=== PATIENT | male | born 1950 | race Caucasian/White ===

== ENCOUNTER 2017-07-11 10:53 | Inpatient (IN) | payer MEDICAID, OTHER ==
[2017-07-11] MEDS ORDERED: Iohexol 240 (50 ml) PO STA (11:40)
[2017-07-11] MEDS ORDERED: Iohexol 240 (50 ml) ONE (13:12)
[2017-07-11] MEDS ORDERED: Morphine 4 MG/ML VIAL ONE (13:12)
[2017-07-11 13:13] LABS: BASO # 0.1 K/uL (0.0-0.2); EOS # 0.2 K/uL (0.0-0.7); EOS % 3.4 % (0.0-4.0); LYMPH # 1.4 K/uL (1.0-4.3); LYMPH % 23.4 % (20.0-40.0); MEAN CELL VOLUME 87.3 fL (80.0-94.0); MEAN CORPUSCULAR HEMOGLOBIN 28.9 pg (27.0-31.0); MEAN CORPUSCULAR HGB CONC 33.1 g/dL (33.0-37.0); MEAN PLATELET VOLUME 7.4 fL (7.2-11.7); MONO # 0.3 K/uL (0.0-0.8); MONO % 5.1 % (0.0-10.0); NRBC % 0.1 % (0.0-2.0); RED CELL DISTRIBUTION WIDTH 14.5 % (11.5-14.5); WHITE BLOOD COUNT 6.1 K/uL (4.8-10.8)
[2017-07-11 13:16] LABS: URINE BILIRUBIN NEGATIVE (NEGATIVE); URINE BLOOD 1+ (NEGATIVE); URINE COLOR Straw (YELLOW); URINE GLUCOSE (UA) 1+ mg/dL (Normal); URINE KETONE NEGATIVE (NEGATIVE); URINE LEUKOCYTE ESTERASE NEG Leu/uL (Negative); URINE PROTEIN 2+ mg/dL (NEGATIVE); URINE UROBILINOGEN NORMAL mg/dL (0.2-1.0); WBC URINE 1 /hpf (0-5)
[2017-07-11 13:17] LABS: RBC URINE 4 /hpf (0-3)
[2017-07-11 13:21] LABS: POTASSIUM 4.8 mmol/L (3.6-5.2)
[2017-07-11 13:23] LABS: ALB/GLOB RATIO 1.3 (1.0-2.1); BILIRUBIN,TOTAL 0.5 mg/dL (0.2-1.3); TOTAL PROTEIN 7.6 g/dL (6.3-8.3)
[2017-07-11 13:24] LABS: CALCIUM 8.6 mg/dl (8.6-10.4)
--- NOTE | 2017-07-11 14:57 | C.PDOC ---
History Of Present Illness 67 year old male, with PMHx of chronic kidney disease on dialysis Friday, Friday, Friday, presents to ED for evaluation of abdominal pain and vomiting for the past 3 days and associated diarrhea for the last 10 days. Otherwise, denies urinary symptoms, back pain, or fever. Time Seen by Provider: 07/11/17 11:19 Chief Complaint (Nursing): GI Problem History Per: Patient History/Exam Limitations: no limitations Onset/Duration Of Symptoms: Days Current Symptoms Are (Timing): Still Present Location Of Pain/Discomfort: Diffuse Radiation Of Pain To:: None Quality Of Discomfort: "Pain", Other (fullness) Associated Symptoms: Nausea, Vomiting, Diarrhea. denies: Fever, Chills, Loss Of Appetite, Back Pain, Chest Pain, Constipation, Urinary Symptoms Exacerbating Factors: None Alleviating Factors: None Recent travel outside of the [place]: No Additional History Per: Patient Past Medical History Reviewed: Historical Data, Nursing Documentation, Vital Signs Vital Signs: Last Vital Signs Temp 98.1 F 07/11/17 18:46 Pulse 84 07/11/17 18:46 Resp 20 07/11/17 18:46 BP 152/78 H 07/11/17 18:46 Pulse Ox 99 07/11/17 18:46 - Medical History PMH: Arthritis (Gout), HTN, Hypercholesterolemia, Hypothyroidism, Peripheral Edema (left arm and hand edema), Chronic Kidney Disease - [facility] Procedures ARTHROCENTESIS (06/24/14) DIALYSIS ARTERIOVENOSTOM (06/24/14) HEMODIALYSIS (06/24/14) VENOUS CATHETERIZATION FOR RENAL DIALYSIS (06/24/14) Family History: States: Unknown Family Hx - Social History Hx Tobacco Use: No Hx Alcohol Use: No Hx Substance Use: No - Immunization History Hx Tetanus Toxoid Vaccination: No Hx Influenza Vaccination: Yes ('2 MONTHS AGO) Hx Pneumococcal Vaccination: No Review Of Systems Except As Marked, All Systems Reviewed And Found Negative. Constitutional: Negative for: Fever, Chills Cardiovascular: Negative for: Chest Pain, Palpitations Respiratory: Negative for: Shortness of Breath Gastrointestinal: Positive for: Nausea, Vomiting, Abdominal Pain, Diarrhea. Negative for: Constipation, Melena, Hematochezia, Hematemesis Genitourinary: Negative for: Dysuria, Frequency, Hematuria, Penile Discharge Musculoskeletal: Negative for: Back Pain Physical Exam - Physical Exam Appears: Non-toxic, No Acute Distress Skin: Normal Color, Warm, Dry Head: Atraumatic, Normacephalic Eye(s): bilateral: Normal Inspection Nose: Normal Oral Mucosa: Moist Neck: Normal ROM, Supple Chest: Symmetrical Cardiovascular: Rhythm Regular, No Murmur Respiratory: Normal Breath Sounds, No Rales, No Rhonchi, No Wheezing Gastrointestinal/Abdominal: Soft, Tenderness (diffuse), No Guarding, No Rebound Back: No CVA Tenderness Extremity: Normal ROM Neurological/Psych: Oriented x3, Normal Speech ED Course And Treatment - Laboratory Results Result Diagrams: 07/11/17 13:09 07/11/17 13:09 O2 Sat by Pulse Oximetry: 100 (RA) Pulse Ox Interpretation: Normal Progress Note: Blood work, UA, EKG, Abd & Pelvis CT scan ordered and reviewed. Patient was given Morphine, Zofran, Omnipaque, Pantoprazole. Case discussed with Dr. Banks who evaluated patient at bedside, requests to admit patient under public relations officer medicine. Case discussed with Dr Moore, public relations officer surgery, agreed upon plan and will evaluated the pt. Case discussed with Dr. Yo, hospitalist , who agrees upon plan and admission. 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 - Scribe Statement The provider has reviewed the documentation as recorded by the Scribe Victoriano Yo All medical record entries made by the Scribe were at my direction and personally dictated by me. I have reviewed the chart and agree that the record accurately reflects my personal performance of the history, physical exam, medical decision making, and the department course for this patient. I have also personally directed, reviewed, and agree with the discharge instructions and disposition.
--- NOTE | 2017-07-11 15:05 | CP.PCM.CON ---
History of Present Illness - History of Present Illness History of Present Illness: 67 y/o HM admitted with 3 days nausea, vomiting, abdominal pains- epigastric. No diarrhea, fevers PMH: ESRD DYSLIPIDEMIA HYPOTHYROIDISM PSH: AV FISTULA Review of Systems - Constitutional Constitutional: Fatigue, Weakness - EENT Eyes: absent: As Per HPI, Blind Spots, Blurred Vision, Change in Vision, Decreased Night Vision, Diplopia, Discharge, Dry Eye, Exophthalmos, Floaters, Irritation, Itchy Eyes, Loss of Peripheral Vision, Pain, Photophobia, Requires Corrective Lenses, Sees Flashes, Spots in Vision, Tunnel Vision, Other Visual Disturbances, Loss of Vision, Other Ears: absent: As Per HPI, Decreased Hearing, Ear Discharge, Ear Pain, Tinnitus, Abnormal Hearing, Disequilibrium, Dizziness, Other Nose/Mouth/Throat: absent: As Per HPI, Epistaxis, Nasal Congestion, Nasal Discharge, Nasal Obstruction, Nasal Trauma, Nose Pain, Post Nasal Drip, Sinus Pain, Sinus Pressure, Bleeding Gums, Change in Voice, Dental Pain, Dry Mouth, Dysphagia, Halitosis, Hoarsness, Lip Swelling, Mouth Lesions, Mouth Pain, Odynophagia, Sore Throat, Throat Swelling, Tongue Swelling, Facial Pain, Neck Pain, Neck Mass, Other - Cardiovascular Cardiovascular: absent: As Per HPI, Acrocyanosis, Chest Pain, Chest Pain at Rest , Chest Pain with Activity, Claudication, Diaphoresis, Dyspnea, Dyspnea on Exertion, Edema, Irregular Heart Rhythm, Pain Radiating to Arm/Neck/Jaw, Leg Edema, Leg Ulcers, Lightheadedness, Orthopnea, Palpitations, Paroxysmal Nocturnal Dyspnea, Pedal Edema, Radiating Pain, Rapid Heart Rate, Slow Heart Rate, Syncope, Other - Respiratory Respiratory: absent: As Per HPI, Cough, Dyspnea, Hemoptysis, Dyspnea on Exertion , Wheezing, Snoring, Stridor, Pain on Inspiration, Chest Congestion, Excessive Mucous Production, Change in Mucous Color, Pain with Coughing, Other - Gastrointestinal Gastrointestinal: As Per HPI - Genitourinary Genitourinary: As Per HPI - Musculoskeletal Musculoskeletal: Back Pain, Muscle Weakness - Integumentary Integumentary: absent: As Per HPI, Acne, Alopecia, Bleeding Lesions, Change in Hair, Change in Nails, Change in Pigmentation, Changing Lesions, Dry Skin, Erythema, Furuncle, Hirsutism, Lesions, New Lesions, Non-Healing Lesions, Photosensitivity, Pruritus, Rash, Skin Pain, Skin Ulcer, Sores, Striae, Swelling , Unusual Bruising, Wounds, Jaundice, Other - Neurological Neurological: absent: As Per HPI, Abnormal Gait, Abnormal Hearing, Abnormal Movements, Abnormal Speech, Behavioral Changes, Burning Sensations, Confusion, Convulsions, Disequilibrium, Dizziness, Numbness, Focal Weakness, Frequent Falls , Headaches, Lack of Coordination, Loss of Vision, Memory Loss, Paresthesias, Radicular Pain, Restless Legs, Sensory Deficit, Syncope, Tingling, Tremor, Vertigo, Weakness, Other Visual Disturbances, Other - Psychiatric Psychiatric: absent: As Per HPI, Abnormal Sleep Pattern, Anhedonia, Anxiety, Auditory Hallucinations, Behavioral Changes, Change in Appetite, Change in Libido, Confusion, Depression, Difficulty Concentrating, Hallucinations, Homicidal Ideation, Hopelessness, Irritability, Memory Loss, Mood Swings, Panic Attacks, Paranoia, Suicidal Ideation, Visual Hallucinations, Tactile Hallucinations, Other Past Patient History - Infectious Disease Hx of Infectious Diseases: None - Past Medical History & Family History Past Medical History?: Yes Past Family History: Reviewed and not pertinent - Past Social History Smoking Status: Never Smoked Chewing Tobacco Use: No Cigar Use: No Alcohol: None Drugs: Denies - CARDIAC Hx Hypercholesterolemia: Yes Hx Hypertension: Yes Hx Peripheral Edema: Yes (left arm and hand edema) - PULMONARY Hx Respiratory Disorders: No - NEUROLOGICAL Hx Alzheimer's Disease: No Hx Dementia: No Hx Migraine: No Hx Multiple Sclerosis: No Hx Parkinson's Disease: No Hx Seizures: No Hx Transient Ischemic Attacks (TIA): No - HEENT Hx HEENT Problems: No Hx Blind: No Hx Cataracts: No Hx Deafness: No Hx Difficulty Chewing: No Hx Epistaxis: No Hx Glaucoma: No Hx Macular Degeneration: No - RENAL Hx Chronic Kidney Disease: Yes - ENDOCRINE/METABOLIC Hx Hypothyroidism: Yes - HEMATOLOGICAL/ONCOLOGICAL Hx Anemia: No Hx Human Immunodeficiency Virus (HIV): No Hx Sickle Cell Disease: No - INTEGUMENTARY Hx Basil Cell: No Hx Wyatt: No Hx Cellulitis: No Hx Eczema: No Hx Melanoma: No Hx Psoriasis: No Hx Squamous Cell: No - MUSCULOSKELETAL/RHEUMATOLOGICAL Hx Arthritis: Yes (Gout) - GENITOURINARY/GYNECOLOGICAL Hx Sexually Transmitted Disorders: No - PSYCHIATRIC Hx Substance Use: No - SURGICAL HISTORY Hx Appendectomy: No Hx Arteriovenous Shunt: Yes Hx Carotid Endarterectomy: No Hx Cholecystectomy: No Hx Coronary Artery Bypass Graft: No Hx Coronary Stent: No Hx Tonsillectomy: No - ANESTHESIA Hx Anesthesia: Yes Hx Anesthesia Reactions: No Meds Allergies/Adverse Reactions: Allergies Allergy/AdvReac Type Severity Reaction Status Date / Time No Known Allergies Allergy Verified 07/11/17 11:26 Physical Exam - Constitutional Appears: Non-toxic, Chronically Ill - Head Exam Head Exam: ATRAUMATIC, NORMAL INSPECTION - Eye Exam Eye Exam: EOMI - Neck Exam Neck exam: Negative for: Tenderness - Respiratory Exam Respiratory Exam: Rales, NORMAL BREATHING PATTERN - Cardiovascular Exam Cardiovascular Exam: REGULAR RHYTHM, +S1 - GI/Abdominal Exam GI & Abdominal Exam: Soft, Tenderness - Extremities Exam Extremities exam: Positive for: pedal edema. Negative for: tenderness - Neurological Exam Neurological exam: Alert, CN II-XII Intact - Skin Skin Exam: Dry, Warm Results - Vital Signs Recent Vital Signs: Last Vital Signs Temp 97.3 F L 07/11/17 11:26 Pulse 87 07/11/17 11:26 Resp 20 07/11/17 11:26 BP 157/89 H 07/11/17 11:26 Pulse Ox 100 07/11/17 15:02 - Labs Result Diagrams: 07/11/17 13:09 07/11/17 13:09 Labs: Laboratory Results - last 24 hr 07/11/17 07/11/17 07/11/17 13:09 13:09 13:09 WBC 6.1 RBC 3.67 L Hgb 10.6 L Hct 32.0 L MCV 87.3 MCH 28.9 MCHC 33.1 RDW 14.5 Plt Count 198 MPV 7.4 Neut % (Auto) 67.1 Lymph % (Auto) 23.4 [place] % (Auto) 5.1 Eos % (Auto) 3.4 Baso % (Auto) 1.0 Neut # 4.1 Lymph # 1.4 [place] # 0.3 Eos # 0.2 Baso # 0.1 Sodium 125 L Potassium 4.8 Chloride 87 L Carbon Dioxide 22 Anion Gap 21 H BUN 50 H Creatinine 7.8 H* Est GFR ( Amer) 8 Est GFR (Non-Af Amer) 7 Random Glucose 85 Calcium 8.6 Total Bilirubin 0.5 AST 21 ALT 43 Alkaline Phosphatase 58 Total Protein 7.6 Albumin 4.3 Globulin 3.3 Albumin/Globulin Ratio 1.3 Lipase 123 Urine Color Straw Urine Clarity Clear Urine pH 8.0 Ur Specific [place] 1.005 Urine Protein 2+ H Urine Glucose (UA) 1+ H Urine Ketones Negative Urine Blood 1+ H Urine Nitrate Negative Urine Bilirubin Negative Urine Urobilinogen Normal Ur Leukocyte Esterase Neg Urine WBC (Auto) 1 Urine RBC (Auto) 4 H Assessment & Plan (1) Gastroenteritis Status: Acute (2) Chronic glomerulonephritis Status: Acute (3) Chronic glomerulonephritis Status: Acute (4) Abdominal pain Status: Acute - Assessment and Plan (Free Text) Plan: Needs dialysis today and MWF Has moderate fluid overload For GI workup Would add PPIs
--- NOTE | 2017-07-11 16:57 | CT ---
PROCEDURE: CT scan abdomen and pelvis dated 07/11/2017 HISTORY: Abdominal pain. COMPARISON: Comparison made with prior CT scan abdomen pelvis 08/10/2015 TECHNIQUE: Contiguous axial images of the abdomen and pelvis. Oral contrast was administered. No IV contrast given. Coronal and Sagittal reformats generated. This CT exam was performed using one or more of the following dose reduction techniques: Automated exposure control, adjustment of the mA and/or kV according to patient size, and/or use of iterative reconstruction technique. Total exam DLP = 399.31 mGy-cm. FINDINGS: LOWER THORAX: Medium size right-sided effusion with mild right basilar atelectasis. The some minimal left basilar atelectasis. No evidence of basilar pneumothorax. Small hiatal hernia. Heart size is upper limits of normal. There is evidence suggest anemia based on the CT appearance of the heart. . Suspect tiny pericardial effusion LIVER: Liver exhibits normal size. Mild diffuse fatty hepatic infiltration felt to be present. No obvious hepatic mass or collection seen on this noncontrast study. GALLBLADDER AND BILE DUCTS: Cholelithiasis. There appears to be some infiltration changes in the surrounding pericholecystic fat; rule out acute cholecystitis. . Infiltration changes extend inferiorly within the mesentery abutting the duodenum and anterior to the right kidney PANCREAS: Pancreas is atrophic and fatty replaced. No obvious pancreatic mass collection or calcification. No significant pancreatic ductal dilatation. SPLEEN: Unremarkable. No splenomegaly. ADRENALS: The no adrenal lesions. KIDNEYS AND URETERS: Kidneys are diminutive with marked cortical atrophy. Of. Bilateral parapelvic cysts are present. Additionally, there are several exophytic cyst left kidney with at least a few small exophytic cyst right kidney. . Clinical correlation with physical exam, history and laboratory values. BLADDER: Urinary bladder is appears incompletely distended which may account for slight thick-walled appearance. Muscular hypertrophy may contribute. Cystitis would be less likely in a male patient though not completely excluded. . No evidence of intraluminal urinary bladder calculi. . REPRODUCTIVE: Prostate gland measures approximately 4.4 cm in transverse dimension. Seminal vesicles unremarkable. APPENDIX: What is felt to represent a normal appearing predominately air and partially debris filled appendix best seen on axial image number [id number]. No periappendiceal inflammatory changes. BOWEL: Evaluation of the bowel is slightly limited due to incomplete opacification. The stomach is distended with large amount of oral contrast material admixed with food debris liquid and air. Visualized loops of small bowel exhibit normal contour and caliber. No evidence of acute mechanical small bowel obstruction. Scattered colonic diverticula predominately seen along the and descending colon however no radiographic evidence of acute diverticulitis. PERITONEUM: No gross free intraperitoneal air seen. . No evidence of loculated/drainable fluid collections. . Small fat containing umbilical hernia. LYMPH NODES: No significant lymphadenopathy. VASCULATURE: Unremarkable. No aortic aneurysm. BONES: Minor multilevel degenerative spondylosis of the lower thoracic and lumbar spine. There are no acute compression fractures nor retropulsed fragments. OTHER FINDINGS: None. IMPRESSION: Cholelithiasis. There are mild infiltration changes seen in the pericholecystic mesentery ; findings suggest early acute cholecystitis. Clinical correlation recommended. Moderate size right-sided effusion and mild right basilar atelectasis Tiny pericardial effusion. Findings suggest anemia as above. Atrophic kidneys with bilateral renal cysts as described above. . These findings discussed with emergency room Physicians Assistant Costa at approximately 4:50 p.m. with written down and read back verification.
[2017-07-11] MEDS ORDERED: Piperacillin/Tazobact 3.375 gm 100 ML IV STA (17:25)
[2017-07-11] MEDS ORDERED: Piperacill/Tazo 3.375gm in Dex 3.375 GM/50 ML BAG IVPB ONE (18:00)
--- NOTE | 2017-07-11 18:25 | CP.PCM.HP ---
History of Present Illness - History of Present Illness History of Present Illness: CC: Nausea, vomiting, epigastric pain, missed dialysis HPI: Patient is a 67 year old male with a history of ESRD on hemdyalsis MWF is here complaining of, generalized weakness, dizziness, abdominal pain nausea vomiting and diarrhea. Patient says about 3 days ago he started having abdominal pain with associated nausea and vomiting. He also says he is having several episodes of diarrhea. He has had about 7 episodes of diarrhea during the day and 3 episodes at night. He says the pain is mainly at night and keeps him from sleeping. He also complains of intermittent chest pain as well that last for a few minutes at a time during rest. He says the pain is dull and aching around the right side of his chest which is non radiating resolves on its own. He says the vomiting has happened 3-4 times with a clear or "phlem " colored appearance. His last dialysis was last Friday but he missed dialysis today because he felt sick from the nausea and vomiting. He denies sick contacts, recent travel, fever, chills, cough, unintentional weight loss, change in vision, orthopenea, shortness of breath, lower extremity swelling, joint pain, or muscle weakness. PMH: ESRD, hypothyroidism, hyperlipidemia, HTN PSH: left AV fistula FH: sister who recently from Renal failure SH: Denies Smoking, eoth use, illicit drug use, unemployed lives with and children Allergies: NKDA Nephrology: Darren Present on Admission - Present on Admission Any Indicators Present on Admission: No History of DVT/PE: No History of Uncontrolled Diabetes: No Urinary Catheter: No Decubitus Ulcer Present: No Review of Systems - Review of Systems All systems: reviewed and no additional remarkable complaints except - Constitutional Constitutional: Weakness. absent: Chills, Fever - EENT Eyes: absent: Change in Vision - Cardiovascular Cardiovascular: Chest Pain. absent: Dyspnea, Orthopnea, Palpitations, Pedal Edema, Radiating Pain - Respiratory Respiratory: absent: Cough, Dyspnea - Gastrointestinal Gastrointestinal: Abdominal Pain, Diarrhea, Early Satiety, Nausea, Vomiting. absent: Constipation, Cramping - Genitourinary Genitourinary: absent: Dysuria - Neurological Neurological: Weakness - Psychiatric Psychiatric: absent: Anxiety - Endocrine Endocrine: absent: Fatigue Past Patient History - Infectious Disease Hx of Infectious Diseases: None - Past Medical History & Family History Past Medical History?: Yes Past Family History: Reviewed and not pertinent - Past Social History Smoking Status: Never Smoked Chewing Tobacco Use: No Cigar Use: No Alcohol: None Drugs: Denies - CARDIAC Hx Hypercholesterolemia: Yes Hx Hypertension: Yes Hx Peripheral Edema: Yes (left arm and hand edema) - PULMONARY Hx Respiratory Disorders: No - NEUROLOGICAL Hx Alzheimer's Disease: No Hx Dementia: No Hx Migraine: No Hx Multiple Sclerosis: No Hx Parkinson's Disease: No Hx Seizures: No Hx Transient Ischemic Attacks (TIA): No - HEENT Hx HEENT Problems: No Hx Blind: No Hx Cataracts: No Hx Deafness: No Hx Difficulty Chewing: No Hx Epistaxis: No Hx Glaucoma: No Hx Macular Degeneration: No - RENAL Hx Chronic Kidney Disease: Yes - ENDOCRINE/METABOLIC Hx Hypothyroidism: Yes - HEMATOLOGICAL/ONCOLOGICAL Hx Anemia: No Hx Human Immunodeficiency Virus (HIV): No Hx Sickle Cell Disease: No - INTEGUMENTARY Hx Basil Cell: No Hx Wyatt: No Hx Cellulitis: No Hx Eczema: No Hx Melanoma: No Hx Psoriasis: No Hx Squamous Cell: No - MUSCULOSKELETAL/RHEUMATOLOGICAL Hx Arthritis: Yes (Gout) - GENITOURINARY/GYNECOLOGICAL Hx Sexually Transmitted Disorders: No - PSYCHIATRIC Hx Substance Use: No - SURGICAL HISTORY Hx Appendectomy: No Hx Arteriovenous Shunt: Yes Hx Carotid Endarterectomy: No Hx Cholecystectomy: No Hx Coronary Artery Bypass Graft: No Hx Coronary Stent: No Hx Tonsillectomy: No - ANESTHESIA Hx Anesthesia: Yes Hx Anesthesia Reactions: No Meds Allergies/Adverse Reactions: Allergies Allergy/AdvReac Type Severity Reaction Status Date / Time No Known Allergies Allergy Verified 07/11/17 11:26 Physical Exam - Constitutional Appears: Non-toxic, No Acute Distress - Eye Exam Eye Exam: Normal appearance, PERRL. absent: Scleral icterus Pupil Exam: NORMAL ACCOMODATION - ENT Exam ENT Exam: Normal Exam - Respiratory Exam Respiratory Exam: Clear to Auscultation Bilateral. absent: Rales, Rhonchi, Wheezes - Cardiovascular Exam Cardiovascular Exam: REGULAR RHYTHM, RRR, +S1, +S2, Systolic Murmur (4/6 best heard at the right sternal border). absent: Gallop, Rubs - GI/Abdominal Exam GI & Abdominal Exam: Normal Bowel Sounds, Soft. absent: Distended, Guarding, Hernia, Rebound, Tenderness Additional comments: Negative inna sign - Extremities Exam Extremities exam: Positive for: normal capillary refill, normal inspection, pedal pulses present. Negative for: calf tenderness, pedal edema Additional comments: thrill over left AV fistula in upper extremity - Back Exam Back exam: NORMAL INSPECTION. absent: CVA tenderness (L), CVA tenderness (R) - Neurological Exam Neurological exam: Alert, Oriented x3 - Psychiatric Exam Psychiatric exam: Normal Affect, Normal Mood - Skin Skin Exam: Dry, Normal Color, Warm Results - Vital Signs Recent Vital Signs: Last Vital Signs Temp 97.3 F L 07/11/17 11:26 Pulse 87 07/11/17 11:26 Resp 20 07/11/17 11:26 BP 157/89 H 07/11/17 11:26 Pulse Ox 100 07/11/17 15:16 - Labs Result Diagrams: 07/11/17 13:09 07/11/17 13:09 Labs: Laboratory Results - last 24 hr 07/11/17 07/11/17 07/11/17 13:09 13:09 13:09 WBC 6.1 RBC 3.67 L Hgb 10.6 L Hct 32.0 L MCV 87.3 MCH 28.9 MCHC 33.1 RDW 14.5 Plt Count 198 MPV 7.4 Neut % (Auto) 67.1 Lymph % (Auto) 23.4 [place] % (Auto) 5.1 Eos % (Auto) 3.4 Baso % (Auto) 1.0 Neut # 4.1 Lymph # 1.4 [place] # 0.3 Eos # 0.2 Baso # 0.1 Sodium 125 L Potassium 4.8 Chloride 87 L Carbon Dioxide 22 Anion Gap 21 H BUN 50 H Creatinine 7.8 H* Est GFR ( Amer) 8 Est GFR (Non-Af Amer) 7 Random Glucose 85 Calcium 8.6 Total Bilirubin 0.5 AST 21 ALT 43 Alkaline Phosphatase 58 Total Protein 7.6 Albumin 4.3 Globulin 3.3 Albumin/Globulin Ratio 1.3 Lipase 123 Urine Color Straw Urine Clarity Clear Urine pH 8.0 Ur Specific [place] 1.005 Urine Protein 2+ H Urine Glucose (UA) 1+ H Urine Ketones Negative Urine Blood 1+ H Urine Nitrate Negative Urine Bilirubin Negative Urine Urobilinogen Normal Ur Leukocyte Esterase Neg Urine WBC (Auto) 1 Urine RBC (Auto) 4 H Assessment & Plan (1) Cholecystitis Assessment and Plan: CT scan impression Cholelithiasis. There are mild infiltration changes seen in the pericholecystic mesentery ; findings suggest early acute cholecystitis. Patient has no white count, left shift, or bands. General Surgery consulted Dr. Moore, have kept patient NPO except for medication Zosyn 2.25gm q6h (due to ESRD) Follow up morning cbc,cmp,mag, phos, and lipase. Morphine 1mg q4H prn for pain Zophran IV 4mg IVP Q6H prn Status: Acute (2) Diarrhea Assessment and Plan: Stool studies, Ovum and parasite, Cdiff, Giardia Status: Acute (3) Pleural effusion Assessment and Plan: CT of Abdomen shows:Moderate size right-sided effusion and mild right basilar atelectasis CT scan of the chest without contrast, consider pulm or ID consult Status: Acute (4) Atypical chest pain Assessment and Plan: Erna panel Q6H, admitted to tele Status: Acute (5) Heart murmur Assessment and Plan: Echo, last echo showed an EF of 67%. Status: Acute (6) ESRD (end stage renal disease) on dialysis Assessment and Plan: Dr. Banks consulted, will resume dialysis tomorrow. Phoslo 667mg Status: Chronic (7) Hypertension Assessment and Plan: Started Norvasc 5mg Status: Chronic (8) Hypothyroidism Assessment and Plan: Home symthroid 100mcg follow TSH and Free T4 Status: Chronic (9) ESRD (end stage renal disease) Status: Chronic (10) Hyperlipidemia Assessment and Plan: Lipid panel tomorrow, continue statin 2.5mg Status: Chronic (11) Anemia Assessment and Plan: Hbg is 10.3 which is around his baseline. Status: Chronic (12) Prophylactic measure Assessment and Plan: heparin 5000 units sc q8h, SCDs, protonix 20mg Status: Acute
--- NOTE | 2017-07-11 20:11 | CP.PCM.CON ---
History of Present Illness - History of Present Illness History of Present Illness: General Surgery consult note for Dr. Moore Consulted for: RUQ abdominal pain Patient araceli 67M with PMH of ESRD on HD with 3 days of epigastric and RUQ pain associated with nausea, vomiting, diarrhea. Denies any blood in his emesis, stool, or urine and that his emesis was clear and watery. Patient states that he normally goes for dialysis on [facility] but that he skipped dialysis on Friday to take care of his grandchildren, and did not go today because he was feeling poorly. Patient denies any chest pain at this time, fevers, chills, SOB, or any other symptoms. Review of Systems - Review of Systems All systems: reviewed and no additional remarkable complaints except (as per HPI ) - Constitutional Constitutional: As Per HPI - Cardiovascular Cardiovascular: absent: Chest Pain, Chest Pain at Rest, Dyspnea - Respiratory Respiratory: absent: Cough, Dyspnea, Dyspnea on Exertion - Gastrointestinal Gastrointestinal: As Per HPI - Genitourinary Genitourinary: absent: Change in Urinary Stream, Dysuria, Hematuria - Musculoskeletal Musculoskeletal: Back Pain. absent: Numbness, Tingling - Neurological Neurological: absent: Numbness, Tingling, Weakness Past Patient History - Infectious Disease Hx of Infectious Diseases: None - Past Medical History & Family History Past Medical History?: Yes Past Family History: Reviewed and not pertinent - Past Social History Smoking Status: Never Smoked Chewing Tobacco Use: No Cigar Use: No Alcohol: None Drugs: Denies - CARDIAC Hx Hypercholesterolemia: Yes Hx Hypertension: Yes Hx Peripheral Edema: Yes (left arm and hand edema) - PULMONARY Hx Respiratory Disorders: No - NEUROLOGICAL Hx Alzheimer's Disease: No Hx Dementia: No Hx Migraine: No Hx Multiple Sclerosis: No Hx Parkinson's Disease: No Hx Seizures: No Hx Transient Ischemic Attacks (TIA): No - HEENT Hx HEENT Problems: No Hx Blind: No Hx Cataracts: No Hx Deafness: No Hx Difficulty Chewing: No Hx Epistaxis: No Hx Glaucoma: No Hx Macular Degeneration: No - RENAL Hx Chronic Kidney Disease: Yes Type of Dialysis Access: Av fistula Date of Last Dialysis Treatment: 07/07/17 - ENDOCRINE/METABOLIC Hx Hypothyroidism: Yes - HEMATOLOGICAL/ONCOLOGICAL Hx Anemia: No Hx Human Immunodeficiency Virus (HIV): No Hx Sickle Cell Disease: No - INTEGUMENTARY Hx Basil Cell: No Hx Wyatt: No Hx Cellulitis: No Hx Eczema: No Hx Melanoma: No Hx Psoriasis: No Hx Squamous Cell: No - MUSCULOSKELETAL/RHEUMATOLOGICAL Hx Arthritis: Yes (Gout) - GENITOURINARY/GYNECOLOGICAL Hx Sexually Transmitted Disorders: No - PSYCHIATRIC Hx Substance Use: No - SURGICAL HISTORY Hx Appendectomy: No Hx Arteriovenous Shunt: Yes Hx Carotid Endarterectomy: No Hx Cholecystectomy: No Hx Coronary Artery Bypass Graft: No Hx Coronary Stent: No Hx Tonsillectomy: No - ANESTHESIA Hx Anesthesia: Yes Hx Anesthesia Reactions: No Meds Allergies/Adverse Reactions: Allergies Allergy/AdvReac Type Severity Reaction Status Date / Time No Known Allergies Allergy Verified 07/11/17 11:26 - Medications Medications: Current Medications Amlodipine Besylate (Norvasc) 5 mg PO DAILY [facility] Aspirin (Ecotrin) 81 mg PO DAILY [facility] Calcium Acetate (Phoslo) 667 mg PO TID [facility] Heparin Sodium (Porcine) (Heparin) 5,000 units SC Q8 [facility] Piperacillin Sod/Tazobactam Sod (Zosyn 2.25 Gm Iv Premix) 2.25 gm in 50 mls @ 100 mls/hr IVPB Q6H [facility] Levothyroxine Sodium (Synthroid) 100 mcg PO DAILY@0630 [facility] Morphine Sulfate (Morphine) 1 mg IVP Q4H PRN PRN Reason: Pain, severe (8-10) Ondansetron HCl (Zofran Inj) 4 mg IVP Q6H PRN PRN Reason: Nausea/Vomiting Pantoprazole Sodium (Protonix Ec Tab) 20 mg PO DAILY [facility] Rosuvastatin Calcium (Crestor) 2.5 mg PO HS [facility] Saccharomyces Boulardii (Florastor) 250 mg PO BID [facility] Physical Exam - Constitutional Appears: Non-toxic, No Acute Distress - Head Exam Head Exam: ATRAUMATIC, NORMOCEPHALIC - Eye Exam Eye Exam: Normal appearance. absent: Conjunctival injection, Scleral icterus - ENT Exam ENT Exam: Mucous Membranes Dry, Normal Oropharynx - Respiratory Exam Respiratory Exam: NORMAL BREATHING PATTERN. absent: Accessory Muscle Use, Respiratory Distress - Cardiovascular Exam Cardiovascular Exam: RRR - GI/Abdominal Exam GI & Abdominal Exam: Soft, Tenderness (Epigastrium>RUQ). absent: Distended - Extremities Exam Extremities exam: Positive for: pedal pulses present. Negative for: calf tenderness, pedal edema - Back Exam Back exam: paraspinal tenderness (left side). absent: CVA tenderness (L), CVA tenderness (R) - Neurological Exam Neurological exam: Alert, Oriented x3 - Psychiatric Exam Psychiatric exam: Normal Affect, Normal Mood - Skin Skin Exam: Dry, Intact, Normal Color Results - Vital Signs Recent Vital Signs: Last Vital Signs Temp 98.1 F 07/11/17 18:46 Pulse 84 07/11/17 18:46 Resp 20 07/11/17 18:46 BP 152/78 H 07/11/17 18:46 Pulse Ox 100 07/11/17 18:54 - Labs Result Diagrams: 07/11/17 13:09 07/11/17 13:09 Labs: Laboratory Results - last 24 hr 07/11/17 07/11/17 07/11/17 13:09 13:09 13:09 WBC 6.1 RBC 3.67 L Hgb 10.6 L Hct 32.0 L MCV 87.3 MCH 28.9 MCHC 33.1 RDW 14.5 Plt Count 198 MPV 7.4 Neut % (Auto) 67.1 Lymph % (Auto) 23.4 [place] % (Auto) 5.1 Eos % (Auto) 3.4 Baso % (Auto) 1.0 Neut # 4.1 Lymph # 1.4 [place] # 0.3 Eos # 0.2 Baso # 0.1 Sodium 125 L Potassium 4.8 Chloride 87 L Carbon Dioxide 22 Anion Gap 21 H BUN 50 H Creatinine 7.8 H* Est GFR ( Amer) 8 Est GFR (Non-Af Amer) 7 Random Glucose 85 Calcium 8.6 Total Bilirubin 0.5 AST 21 ALT 43 Alkaline Phosphatase 58 Total Protein 7.6 Albumin 4.3 Globulin 3.3 Albumin/Globulin Ratio 1.3 Lipase 123 Urine Color Straw Urine Clarity Clear Urine pH 8.0 Ur Specific [place] 1.005 Urine Protein 2+ H Urine Glucose (UA) 1+ H Urine Ketones Negative Urine Blood 1+ H Urine Nitrate Negative Urine Bilirubin Negative Urine Urobilinogen Normal Ur Leukocyte Esterase Neg Urine WBC (Auto) 1 Urine RBC (Auto) 4 H - Imaging and Cardiology CT scan - abdomen Status: Image reviewed by me, Report reviewed by me Assessment & Plan - Assessment and Plan (Free Text) Assessment: 67M with PMH of ESRD on HD, with RUQ abdominal pain, nausea, vomiting, and diarrhea Plan: -No surgical intervention indicated at this time. Patient's clinical appearance and labs do not suggest acute cholecystitis at this time, but more likely a GI response to electrolyte imbalances d/t missing dialysis -Repeat exam after dialysis completed and electrolytes normalized -May advance diet as tolerated from a surgical standpoint -Repeat CBC/CMP in AM -PRN pain and nausea medication -Will continue to follow -Further surgical planning pending clinical course. Thank you for this consult Seen and discussed with Dr. Oscar Grewal, PGY2
[2017-07-11] MEDS: Piperacill/Tazo 2.25gm in Dex 2.25 GM/50 ML BAG IVPB SCH (21:20)
[2017-07-11] MEDS: Saccharomyces Boulardi 250 mg Cap PO SCH (21:23)
[2017-07-11] MEDS: Rosuvastatin Calcium 2.5 mg Tab PO SCH (21:24)
[2017-07-12] MEDS: Piperacill/Tazo 2.25gm in Dex 2.25 GM/50 ML BAG IVPB SCH ×5 (01:56→20:20)
--- NOTE | 2017-07-12 06:21 | CP.PCM.PN ---
Subjective - Date & Time of Evaluation Date of Evaluation: 07/12/17 Time of Evaluation: 05:30 - Subjective Subjective: Patient seen and examined this AM. Per nursing, patient had one more episode of vomiting when he came up from the ER. Patient denies any pain, nausea, or vomiting currently. Objective - Vital Signs/Intake and Output Vital Signs (last 24 hours): Temp Pulse Resp BP Pulse Ox 97.7 F 77 18 137/78 97 07/11/17 23:21 07/11/17 23:21 07/11/17 23:21 07/11/17 23:21 07/11/17 23:21 Intake and Output: 07/11/17 07/12/17 18:59 06:59 Intake Total 0 Balance 0 - Medications Medications: Current Medications Amlodipine Besylate (Norvasc) 5 mg PO DAILY [facility] Aspirin (Ecotrin) 81 mg PO DAILY [facility] Calcium Acetate (Phoslo) 667 mg PO TID [facility] Heparin Sodium (Porcine) (Heparin) 5,000 units SC Q8 [facility] Last Admin: 07/12/17 05:46 Dose: 5,000 units Piperacillin Sod/Tazobactam Sod (Zosyn 2.25 Gm Iv Premix) 2.25 gm in 50 mls @ 100 mls/hr IVPB Q6H [facility] Last Admin: 07/12/17 01:56 Dose: 100 mls/hr Levothyroxine Sodium (Synthroid) 100 mcg PO DAILY@0630 [facility] Last Admin: 07/12/17 05:46 Dose: 100 mcg Morphine Sulfate (Morphine) 1 mg IVP Q4H PRN PRN Reason: Pain, severe (8-10) Ondansetron HCl (Zofran Inj) 4 mg IVP Q6H PRN PRN Reason: Nausea/Vomiting Pantoprazole Sodium (Protonix Ec Tab) 40 mg PO DAILY [facility] Pneumococcal Polyvalent Vaccine (Pneumovax 23 Vaccine) 0.5 ml IM .ONCE ONE Stop: 07/13/17 10:01 Rosuvastatin Calcium (Crestor) 2.5 mg PO HS [facility] Last Admin: 07/11/17 21:24 Dose: 2.5 mg Saccharomyces Boulardii (Florastor) 250 mg PO BID [facility] Last Admin: 07/11/17 21:23 Dose: 250 mg - Labs Labs: 07/11/17 13:09 07/11/17 13:09 - Constitutional Appears: Non-toxic, No Acute Distress - Head Exam Head Exam: ATRAUMATIC, NORMOCEPHALIC - Eye Exam Eye Exam: Normal appearance. absent: Conjunctival injection, Scleral icterus - ENT Exam ENT Exam: Mucous Membranes Moist, Normal Oropharynx - Respiratory Exam Respiratory Exam: NORMAL BREATHING PATTERN. absent: Accessory Muscle Use, Respiratory Distress - Cardiovascular Exam Cardiovascular Exam: RRR - GI/Abdominal Exam GI & Abdominal Exam: Soft, Tenderness (mild tenderness in epigastrium and RUQ). absent: Distended - Extremities Exam Extremities Exam: absent: Calf Tenderness, Pedal Edema, Tenderness Additional comments: AVF left arm - Neurological Exam Neurological Exam: Alert, Awake, Oriented x3 - Psychiatric Exam Psychiatric exam: Normal Affect, Normal Mood - Skin Skin Exam: Dry, Intact, Normal Color, Warm Assessment and Plan - Assessment and Plan (Free Text) Assessment: 67M with ESRD on HD, RUQ abdominal pain and vomiting Plan: -Patient clinically improving, minimal tenderness, no indication for surgery at this time -Serial exams -F/U AM labs -PRN pain/nausea medication -HHD -Encourage ambulation Will discuss with Dr. Oscar Grewal, PGY2
[2017-07-12] MEDS ORDERED: Levothyroxine 100 MCG TAB PO SCH (06:30)
[2017-07-12 08:12] LABS: BASO # 0.1 K/uL (0.0-0.2); BASO % 1.1 % (0.0-2.0); EOS # 0.3 K/uL (0.0-0.7); EOS % 5.4 % (0.0-4.0); HEMATOCRIT 30.7 % (35.0-51.0); LYMPH # 1.4 K/uL (1.0-4.3); LYMPH % 31.1 % (20.0-40.0); MEAN CELL VOLUME 87.2 fL (80.0-94.0); MEAN CORPUSCULAR HEMOGLOBIN 29.1 pg (27.0-31.0); MEAN CORPUSCULAR HGB CONC 33.4 g/dL (33.0-37.0); MEAN PLATELET VOLUME 7.9 fL (7.2-11.7); MONO # 0.3 K/uL (0.0-0.8); NRBC % 0.2 % (0.0-2.0); RED CELL DISTRIBUTION WIDTH 14.6 % (11.5-14.5); WHITE BLOOD COUNT 4.6 K/uL (4.8-10.8)
[2017-07-12 08:28] LABS: POTASSIUM 5.4 mmol/L (3.6-5.2)
[2017-07-12 08:29] LABS: BILIRUBIN,TOTAL 0.7 mg/dL (0.2-1.3)
[2017-07-12 08:30] LABS: CALCIUM 7.9 mg/dl (8.6-10.4); TOTAL PROTEIN 6.2 g/dL (6.3-8.3)
[2017-07-12 08:31] LABS: MAGNESIUM 2.1 mg/dL (1.6-2.3)
[2017-07-12 09:00] LABS: THYROID STIMULATING HORMONE 13.1 mIU/L (0.46-4.68)
--- NOTE | 2017-07-12 09:54 | CP.PCM.PN ---
Subjective - Date & Time of Evaluation Date of Evaluation: 07/12/17 Time of Evaluation: 09:52 - Subjective Subjective: dialysis could not be accomplished last PM- on dialysis now CT scan done- ? choleycystitis with PPI rx patient much better today had vomited last PM- no abdominal pain now in last year pt has been noncompliant with dialysis- only getting 2 treatments weekly no fevers, SOB, chills, CPs; no more nausea now Objective - Vital Signs/Intake and Output Vital Signs (last 24 hours): Temp Pulse Resp BP Pulse Ox 97.4 F L 74 20 122/75 98 07/12/17 08:03 07/12/17 08:03 07/12/17 08:03 07/12/17 08:03 07/12/17 08:03 Intake and Output: 07/12/17 07/12/17 06:59 18:59 Intake Total 0 Balance 0 - Medications Medications: Current Medications Amlodipine Besylate (Norvasc) 5 mg PO DAILY [facility] Aspirin (Ecotrin) 81 mg PO DAILY [facility] Calcium Acetate (Phoslo) 667 mg PO TID [facility] Heparin Sodium (Porcine) (Heparin) 5,000 units SC Q8 [facility] Last Admin: 07/12/17 05:46 Dose: 5,000 units Piperacillin Sod/Tazobactam Sod (Zosyn 2.25 Gm Iv Premix) 2.25 gm in 50 mls @ 100 mls/hr IVPB Q6H [facility] Last Admin: 07/12/17 01:56 Dose: 100 mls/hr Levothyroxine Sodium (Synthroid) 100 mcg PO DAILY@0630 [facility] Last Admin: 07/12/17 05:46 Dose: 100 mcg Morphine Sulfate (Morphine) 1 mg IVP Q4H PRN PRN Reason: Pain, severe (8-10) Ondansetron HCl (Zofran Inj) 4 mg IVP Q6H PRN PRN Reason: Nausea/Vomiting Pantoprazole Sodium (Protonix Ec Tab) 40 mg PO DAILY [facility] Pneumococcal Polyvalent Vaccine (Pneumovax 23 Vaccine) 0.5 ml IM .ONCE ONE Stop: 07/13/17 10:01 Rosuvastatin Calcium (Crestor) 2.5 mg PO HS [facility] Last Admin: 07/11/17 21:24 Dose: 2.5 mg Saccharomyces Boulardii (Florastor) 250 mg PO BID [facility] Last Admin: 07/11/17 21:23 Dose: 250 mg - Labs Labs: 07/12/17 07:55 07/12/17 07:55 - Constitutional Appears: No Acute Distress, Chronically Ill - Head Exam Head Exam: ATRAUMATIC, NORMAL INSPECTION - Eye Exam Eye Exam: EOMI, Normal appearance - Neck Exam Neck Exam: Normal Inspection. absent: Tenderness - Respiratory Exam Respiratory Exam: Rales, NORMAL BREATHING PATTERN - Cardiovascular Exam Cardiovascular Exam: REGULAR RHYTHM, +S1 - GI/Abdominal Exam GI & Abdominal Exam: Soft. absent: Tenderness - Extremities Exam Extremities Exam: Normal Inspection. absent: Tenderness - Neurological Exam Neurological Exam: Alert, CN II-XII Intact - Skin Skin Exam: Dry, Warm Assessment and Plan (1) Gastroenteritis Status: Acute (2) Chronic glomerulonephritis Status: Acute (3) Abdominal pain Status: Acute (4) Fluid overload Status: Acute (5) Hyponatremia with excess extracellular fluid volume Status: Acute (6) Noncompliance Status: Acute - Assessment and Plan (Free Text) Plan: Increase UF 3000ml fluid restriction oral fluid restriction discuss better dialysis compliance
[2017-07-12] MEDS ORDERED: Pantoprazole 20 mg EC Tab PO SCH (10:00)
[2017-07-12] MEDS: Pantoprazole 40 mg EC Tab PO SCH (14:13)
[2017-07-12] MEDS: Saccharomyces Boulardi 250 mg Cap PO SCH ×2 (14:14→17:38)
--- NOTE | 2017-07-12 15:21 | CP.PCM.PN ---
<Jackie Larsen - Last Filed: 07/12/17 15:18> Subjective - Date & Time of Evaluation Date of Evaluation: 07/12/17 Time of Evaluation: 08:00 - Subjective Subjective: Medicine Progress Note- Dr. Elton Yo's Service: Patient seen and examined at bedside this AM. Patient reports he is feeling well this AM. His abdominal pain has resolved and he tolerated his breakfast this AM. Patient with history of poor HD compliance as outpatient. He has not chest pain today, no shortness of breath and states hoarse voice has improved. No acute events overnight as per nursing. Objective - Vital Signs/Intake and Output Vital Signs (last 24 hours): Temp Pulse Resp BP Pulse Ox 97.6 F 89 18 155/85 H 100 07/12/17 13:00 07/12/17 14:13 07/12/17 13:00 07/12/17 14:13 07/12/17 13:00 Intake and Output: 07/12/17 07/12/17 06:59 18:59 Intake Total 0 Balance 0 - Medications Medications: Current Medications Amlodipine Besylate (Norvasc) 5 mg PO DAILY [facility] Last Admin: 07/12/17 14:14 Dose: 5 mg Aspirin (Ecotrin) 81 mg PO DAILY [facility] Last Admin: 07/12/17 14:15 Dose: 81 mg Calcium Acetate (Phoslo) 667 mg PO TID [facility] Last Admin: 07/12/17 14:14 Dose: 667 mg Heparin Sodium (Porcine) (Heparin) 5,000 units SC Q8 [facility] Last Admin: 07/12/17 14:15 Dose: 5,000 units Piperacillin Sod/Tazobactam Sod (Zosyn 2.25 Gm Iv Premix) 2.25 gm in 50 mls @ 100 mls/hr IVPB Q6H [facility] Last Admin: 07/12/17 14:17 Dose: 100 mls/hr Levothyroxine Sodium (Synthroid) 100 mcg PO DAILY@0630 [facility] Last Admin: 07/12/17 05:46 Dose: 100 mcg Morphine Sulfate (Morphine) 1 mg IVP Q4H PRN PRN Reason: Pain, severe (8-10) Ondansetron HCl (Zofran Inj) 4 mg IVP Q6H PRN PRN Reason: Nausea/Vomiting Pantoprazole Sodium (Protonix Ec Tab) 40 mg PO DAILY [facility] Last Admin: 07/12/17 14:13 Dose: 40 mg Pneumococcal Polyvalent Vaccine (Pneumovax 23 Vaccine) 0.5 ml IM .ONCE ONE Stop: 07/13/17 10:01 Rosuvastatin Calcium (Crestor) 2.5 mg PO HS [facility] Last Admin: 07/11/17 21:24 Dose: 2.5 mg Saccharomyces Boulardii (Florastor) 250 mg PO BID [facility] Last Admin: 07/12/17 14:14 Dose: 250 mg - Labs Labs: 07/12/17 07:55 07/12/17 07:55 - Constitutional Appears: No Acute Distress - Head Exam Head Exam: NORMAL INSPECTION, NORMOCEPHALIC - Eye Exam Eye Exam: EOMI, Normal appearance - ENT Exam ENT Exam: Mucous Membranes Moist - Neck Exam Neck Exam: Full ROM, Normal Inspection - Respiratory Exam Respiratory Exam: Decreased Breath Sounds - Cardiovascular Exam Cardiovascular Exam: REGULAR RHYTHM, +S1, +S2, Murmur - GI/Abdominal Exam GI & Abdominal Exam: Soft. absent: Distended, Tenderness - Extremities Exam Extremities Exam: Full ROM, Normal Inspection - Back Exam Back Exam: Full ROM, NORMAL INSPECTION - Neurological Exam Neurological Exam: Alert, Awake, Oriented x3 - Psychiatric Exam Psychiatric exam: Normal Affect, Normal Mood - Skin Skin Exam: Dry, Normal Color, Warm Assessment and Plan - Assessment and Plan (Free Text) Assessment: (1) RUQ Pain Assessment and Plan: CT scan impression Cholelithiasis. There are mild infiltration changes seen in the pericholecystic mesentery ; findings suggest early acute cholecystitis. Patient has no white count, left shift, or bands. General Surgery consulted Dr. Moore. No surgery indicated at this time as per surgery team. No acute cholecystitis. Lipase WNL. Continue: * Zosyn 2.25gm q6h (due to ESRD) * Morphine 1mg q4H prn for pain * Zofran IV 4mg IVP Q6H prn Status: Acute (2) ESRD (end stage renal disease) on dialysis Assessment and Plan: Dr. Banks consulted- help appreciated. HD today. As per Dr. Banks, in last year pt has been noncompliant with dialysis- only getting 2 treatments weekly. Status: Chronic (3) Electrolyte imbalance Assessment and Plan: Na 123 K+ 5.4 Dr. Banks consulted- help appreciated. HD today. f/u CMP in the AM Status: Acute (4) Pleural effusion Assessment and Plan: Patient with history of poor compliance with HD as outpatient. CT of Abdomen shows:Moderate size right-sided effusion and mild right basilar atelectasis F/U CT scan of the chest without contrast. Status: Acute (5) Atypical chest pain Assessment and Plan: Resolved Troponins: 0.0470, 0.0470, 0.0480 Status: Acute (6) Diarrhea Assessment and Plan: Resolved 4 days ago prior to admission. Stool leukocytes negative F/U Ovum and parasite, Cdiff, Giardia Status: Acute (7) Hypothyroidism Assessment and Plan: TSH 13.20. Free T4 however 1.55. Home Synthroid 100mcg increased to 125 mcg daily given increased TSH. Status: Chronic (8) Hypertension Assessment and Plan: Started Norvasc 5mg Status: Chronic (9) Heart murmur Assessment and Plan: Echo, last echo 2013 showed an EF of 67%. Status: Acute (10) Hyperlipidemia Assessment and Plan: FLP WNL Crestor 2.5mg PO HS Status: Chronic (11) Anemia Assessment and Plan: Hbg is 10.3 which is around his baseline. Status: Chronic (12) Prophylactic measure Assessment and Plan: heparin 5000 units sc q8h, SCDs, protonix 20mg Status: Acute <Elton Yo - Last Filed: 07/12/17 18:15> Objective - Vital Signs/Intake and Output Vital Signs (last 24 hours): Temp Pulse Resp BP Pulse Ox 97.7 F 90 20 157/84 H 96 07/12/17 15:49 07/12/17 15:49 07/12/17 15:49 07/12/17 15:49 07/12/17 15:49 Intake and Output: 07/12/17 07/12/17 06:59 18:59 Intake Total 0 Balance 0 - Medications Medications: Current Medications Amlodipine Besylate (Norvasc) 5 mg PO DAILY [facility] Last Admin: 07/12/17 14:14 Dose: 5 mg Aspirin (Ecotrin) 81 mg PO DAILY [facility] Last Admin: 07/12/17 14:15 Dose: 81 mg Calcium Acetate (Phoslo) 667 mg PO TID [facility] Last Admin: 07/12/17 17:38 Dose: 667 mg Heparin Sodium (Porcine) (Heparin) 5,000 units SC Q8 [facility] Last Admin: 07/12/17 14:15 Dose: 5,000 units Piperacillin Sod/Tazobactam Sod (Zosyn 2.25 Gm Iv Premix) 2.25 gm in 50 mls @ 100 mls/hr IVPB Q6H [facility] Last Admin: 07/12/17 14:17 Dose: 100 mls/hr Levothyroxine Sodium (Synthroid) 125 mcg PO DAILY@0630 [facility] Morphine Sulfate (Morphine) 1 mg IVP Q4H PRN PRN Reason: Pain, severe (8-10) Ondansetron HCl (Zofran Inj) 4 mg IVP Q6H PRN PRN Reason: Nausea/Vomiting Pantoprazole Sodium (Protonix Ec Tab) 40 mg PO DAILY [facility] Last Admin: 07/12/17 14:13 Dose: 40 mg Pneumococcal Polyvalent Vaccine (Pneumovax 23 Vaccine) 0.5 ml IM .ONCE ONE Stop: 07/13/17 10:01 Rosuvastatin Calcium (Crestor) 2.5 mg PO HS [facility] Last Admin: 07/11/17 21:24 Dose: 2.5 mg Saccharomyces Boulardii (Florastor) 250 mg PO BID [facility] Last Admin: 07/12/17 17:38 Dose: 250 mg - Labs Labs: 07/12/17 07:55 07/12/17 07:55 Attending/Attestation - Attestation I have personally seen and examined this patient.: Yes I have fully participated in the care of the patient.: Yes I have reviewed all pertinent clinical information, including history, physical exam and plan: Yes Notes (Text): 07/12/17 18:11 Patient was seen and examined at 12:45 PM 07/12/17 in HD 3T Exam, assessment and plan were gone over with the resident. Also on ROS: NO more N/V today NO more abodminal pain Tolerated diet NO more diarrhea and had normal bowel movement this morning Also on Exam: Resp: Decreased breath sounds bilateral bases Ext: Left Arm AV Shunt (+) Thrill Also on Assessment and Plan: Hyponatremia: likely dilutional from fluid overload as patient has not be compliant with his outpatient HD (coming 1 to 2 per week instead of 3) as per my conversation with Prescription Benefit Specialist. Scheduled to have 3 liters of fluid removed with HD Follow up with CT Chest to get a better look at the effusion seen on the right on CT Abdomen/Pelvis. Will discuss with IR if there is a significant amount to see if needs to be drained. If not then will discharge on 07/13/17. Elton Yo D.O.
[2017-07-12] MEDS: Rosuvastatin Calcium 2.5 mg Tab PO SCH (21:47)
[2017-07-13] MEDS: Piperacill/Tazo 2.25gm in Dex 2.25 GM/50 ML BAG IVPB SCH ×4 (01:50→19:23)
[2017-07-13] MEDS: Levothyroxine 125 MCG TAB PO SCH (06:32)
[2017-07-13 08:51] LABS: BASO # 0.1 K/uL (0.0-0.2); BASO % 1.2 % (0.0-2.0); EOS # 0.2 K/uL (0.0-0.7); EOS % 4.6 % (0.0-4.0); HEMATOCRIT 32.8 % (35.0-51.0); LYMPH # 1.3 K/uL (1.0-4.3); LYMPH % 28.8 % (20.0-40.0); MEAN CELL VOLUME 88.4 fL (80.0-94.0); MEAN CORPUSCULAR HEMOGLOBIN 28.9 pg (27.0-31.0); MEAN CORPUSCULAR HGB CONC 32.7 g/dL (33.0-37.0); MEAN PLATELET VOLUME 8.5 fL (7.2-11.7); MONO # 0.3 K/uL (0.0-0.8); MONO % 5.7 % (0.0-10.0); NRBC % 0.1 % (0.0-2.0); RED CELL DISTRIBUTION WIDTH 14.4 % (11.5-14.5); WHITE BLOOD COUNT 4.6 K/uL (4.8-10.8)
[2017-07-13 09:17] LABS: POTASSIUM 4.6 mmol/L (3.6-5.2)
[2017-07-13 09:19] LABS: ALB/GLOB RATIO 1.2 (1.0-2.1); BILIRUBIN,TOTAL 0.5 mg/dL (0.2-1.3); PHOSPHOROUS 4.3 mg/dL (2.5-4.5); TOTAL PROTEIN 6.8 g/dL (6.3-8.3)
[2017-07-13 09:20] LABS: CALCIUM 8.2 mg/dl (8.6-10.4); MAGNESIUM 1.9 mg/dL (1.6-2.3)
--- NOTE | 2017-07-13 09:37 | CP.PCM.PN ---
Subjective - Date & Time of Evaluation Date of Evaluation: 07/13/17 Time of Evaluation: 07:15 - Subjective Subjective: General Surgery Dr. Moore Pt seen and examined @bedside. NAEO. no complaints. pt denies abd pain, fever, chills, N&V, diarrhea, constipation. pt tolerating diet. Objective - Vital Signs/Intake and Output Vital Signs (last 24 hours): Temp Pulse Resp BP Pulse Ox 97.3 F L 76 20 136/81 100 07/13/17 07:30 07/13/17 07:30 07/13/17 07:30 07/13/17 07:30 07/13/17 07:30 - Medications Medications: Current Medications Amlodipine Besylate (Norvasc) 5 mg PO DAILY [facility] Last Admin: 07/12/17 14:14 Dose: 5 mg Aspirin (Ecotrin) 81 mg PO DAILY [facility] Last Admin: 07/12/17 14:15 Dose: 81 mg Calcium Acetate (Phoslo) 667 mg PO TID [facility] Last Admin: 07/12/17 17:38 Dose: 667 mg Heparin Sodium (Porcine) (Heparin) 5,000 units SC Q8 [facility] Last Admin: 07/13/17 06:32 Dose: 5,000 units Piperacillin Sod/Tazobactam Sod (Zosyn 2.25 Gm Iv Premix) 2.25 gm in 50 mls @ 100 mls/hr IVPB Q6H [facility] Last Admin: 07/13/17 08:08 Dose: 100 mls/hr Levothyroxine Sodium (Synthroid) 125 mcg PO DAILY@0630 [facility] Last Admin: 07/13/17 06:32 Dose: 125 mcg Morphine Sulfate (Morphine) 1 mg IVP Q4H PRN PRN Reason: Pain, severe (8-10) Ondansetron HCl (Zofran Inj) 4 mg IVP Q6H PRN PRN Reason: Nausea/Vomiting Pantoprazole Sodium (Protonix Ec Tab) 40 mg PO DAILY [facility] Last Admin: 07/12/17 14:13 Dose: 40 mg Pneumococcal Polyvalent Vaccine (Pneumovax 23 Vaccine) 0.5 ml IM .ONCE ONE Stop: 07/13/17 10:01 Rosuvastatin Calcium (Crestor) 2.5 mg PO HS [facility] Last Admin: 07/12/17 21:47 Dose: 2.5 mg Saccharomyces Boulardii (Florastor) 250 mg PO BID [facility] Last Admin: 07/12/17 17:38 Dose: 250 mg - Labs Labs: 07/13/17 08:43 07/13/17 08:43 - Constitutional Appears: Non-toxic, No Acute Distress - Head Exam Head Exam: NORMAL INSPECTION - Eye Exam Eye Exam: Normal appearance - ENT Exam ENT Exam: Mucous Membranes Moist - Respiratory Exam Respiratory Exam: NORMAL BREATHING PATTERN. absent: Accessory Muscle Use, Respiratory Distress - Cardiovascular Exam Cardiovascular Exam: absent: Bradycardia, Tachycardia - GI/Abdominal Exam GI & Abdominal Exam: Soft. absent: Distended, Firm, Guarding, Tenderness, Rebound - Neurological Exam Neurological Exam: Alert, Awake, Oriented x3 - Psychiatric Exam Psychiatric exam: Normal Affect, Normal Mood - Skin Skin Exam: Dry, Intact, Normal Color, Warm Assessment and Plan - Assessment and Plan (Free Text) Assessment: 67 y/o M w/ ESRD on HD consulted for RUQ abdominal pain and vomiting - cont pain management - cont HD - advance diet as tolerating - encourage OOB to chair/amb - no surgical intervention at this time, please reconsult if needed Pt discussed w/ Dr. Oscar Higuera DO PGY2
[2017-07-13] MEDS ORDERED: Pneumococcal 23-Valent Vaccine IM ONE (10:00)
[2017-07-13] MEDS: Pantoprazole 40 mg EC Tab PO SCH (10:46)
[2017-07-13] MEDS: Saccharomyces Boulardi 250 mg Cap PO SCH ×2 (10:47→19:28)
--- NOTE | 2017-07-13 16:54 | CT ---
PROCEDURE: CT Chest without contrast HISTORY: Pleural effusions seen on abdominal CT scan COMPARISON: Comparison made with CT scan of the abdomen and pelvis 07/11/2017 which imaged both lung bases. . Comparison also made with chest radiograph dated 08/10/2015 TECHNIQUE: Contiguous axial images were obtained through the chest without intravenous contrast enhancement. Sagittal and coronal reconstructions were performed. Radiation dose (DLP): 427.23 mGy-cm. This CT exam was performed using one or more of the following dose reduction techniques: Automated exposure control, adjustment of the mA and/or kV according to patient size, and/or use of iterative reconstruction technique. FINDINGS: LUNGS: The there is a moderate size layering right-sided effusion on all which is associate with some minor right basilar atelectasis. No significant left-sided effusion. Minimal left apical pleural thickening. . There is a tiny calcified granuloma right lower lobe near the posterolateral convexity is associated with some mild linear scarring that extends medially as well as posterolaterally to the pleural surface. MEDIASTINUM: Heart size is borderline/mildly enlarged. Trace -small pericardial effusion felt be present. . The ascending thoracic aorta measures approximately 3.34 cm and descending thoracic aorta measures approximately 2.83 cm. Pulmonary trunk measures approximately 2.7 cm. Small calcified bilateral hilar lymph nodes are present. There also multiple mediastinal lymph nodes, the largest as follows: subcarinal lymph node measuring approximately 17 mm, paratracheal lymph node measuring approximately 15 mm and, and AP window measuring 15 mm. . Additional small lymph nodes are present. Central airways midline and patent. No obvious central endoluminal lesions. There appears to be minor wall thickening of the esophagus nonspecific. Followup endoscopy could be performed if clinically indicated. Thyroid gland appears unremarkable. PLEURA: As above. No evidence of pneumothorax. BONES: No fracture. No destructive lesion. UPPER ABDOMEN: Please refer to prior CT scan abdomen pelvis 07/11/2017 for additional details however briefly, again noted are multiple intraluminal gallbladder calculi. Previously noted infiltration changes in the pericholecystic mesenteries slightly improved ; rule out on mild acute cholecystitis. Small calcified granuloma seen within the anterior margin of the splenic parenchyma consistent with prior exposure to granulomatous disease process. . Bilateral renal cystic changes are again seen which have been detailed on prior CT scan of the abdomen pelvis. OTHER FINDINGS: None. IMPRESSION: Moderate size right-sided effusion with minor right basilar atelectasis. Small calcified granuloma right lower lobe consistent with prior exposure to granulomatous disease process. Trace -small pericardial effusion. Multiple small to medium-sized mediastinal lymph nodes. Small calcified bilateral hilar lymph nodes. Cholelithiasis. Persistent but slightly improved vague infiltration changes in the pericholecystic mesenteric ; rule out mild acute cholecystitis. Calcification in the splenic parenchyma
--- NOTE | 2017-07-13 17:13 | CP.PCM.PN ---
Subjective - Date & Time of Evaluation Date of Evaluation: 07/13/17 Time of Evaluation: 08:00 - Subjective Subjective: Medicine Progress Note- Dr. Elton Yo's Service: Patient seen and examined at bedside this AM. Patient reports he is feeling well this AM. His abdominal pain has resolved and he tolerated his breakfast again this AM. He has not chest pain today, no shortness of breath. No acute events overnight as per nursing. Objective - Vital Signs/Intake and Output Vital Signs (last 24 hours): Temp Pulse Resp BP Pulse Ox 97.3 F L 78 20 137/83 100 07/13/17 15:00 07/13/17 15:00 07/13/17 15:00 07/13/17 15:00 07/13/17 15:00 - Medications Medications: Current Medications Amlodipine Besylate (Norvasc) 5 mg PO DAILY [facility] Last Admin: 07/13/17 10:46 Dose: 5 mg Aspirin (Ecotrin) 81 mg PO DAILY [facility] Last Admin: 07/13/17 10:46 Dose: 81 mg Calcium Acetate (Phoslo) 667 mg PO TID [facility] Last Admin: 07/13/17 14:07 Dose: 667 mg Heparin Sodium (Porcine) (Heparin) 5,000 units SC Q8 [facility] Last Admin: 07/13/17 14:07 Dose: 5,000 units Piperacillin Sod/Tazobactam Sod (Zosyn 2.25 Gm Iv Premix) 2.25 gm in 50 mls @ 100 mls/hr IVPB Q6H [facility] Last Admin: 07/13/17 13:55 Dose: 100 mls/hr Levothyroxine Sodium (Synthroid) 125 mcg PO DAILY@0630 [facility] Last Admin: 07/13/17 06:32 Dose: 125 mcg Morphine Sulfate (Morphine) 1 mg IVP Q4H PRN PRN Reason: Pain, severe (8-10) Ondansetron HCl (Zofran Inj) 4 mg IVP Q6H PRN PRN Reason: Nausea/Vomiting Pantoprazole Sodium (Protonix Ec Tab) 40 mg PO DAILY [facility] Last Admin: 07/13/17 10:46 Dose: 40 mg Rosuvastatin Calcium (Crestor) 2.5 mg PO HS [facility] Last Admin: 07/12/17 21:47 Dose: 2.5 mg Saccharomyces Boulardii (Florastor) 250 mg PO BID [facility] Last Admin: 07/13/17 10:47 Dose: 250 mg - Labs Labs: 07/13/17 08:43 07/13/17 08:43 - Constitutional Appears: No Acute Distress - Head Exam Head Exam: NORMAL INSPECTION, NORMOCEPHALIC - Eye Exam Eye Exam: EOMI, Normal appearance - ENT Exam ENT Exam: Mucous Membranes Moist - Neck Exam Neck Exam: Full ROM, Normal Inspection - Respiratory Exam Respiratory Exam: Clear to Ausculation Bilateral, NORMAL BREATHING PATTERN - Cardiovascular Exam Cardiovascular Exam: REGULAR RHYTHM, +S1, +S2 - GI/Abdominal Exam GI & Abdominal Exam: Soft. absent: Distended, Tenderness - Extremities Exam Extremities Exam: Full ROM, Normal Inspection - Neurological Exam Neurological Exam: Alert, Awake, Oriented x3 - Psychiatric Exam Psychiatric exam: Normal Affect, Normal Mood - Skin Skin Exam: Normal Color, Warm Assessment and Plan - Assessment and Plan (Free Text) Assessment: (1) RUQ Pain Assessment and Plan: CT scan impression: Cholelithiasis. There are mild infiltration changes seen in the pericholecystic mesentery ; findings suggest early acute cholecystitis. Patient has no white count, left shift, or bands. General Surgery consulted Dr. Moore. No surgery indicated at this time as per surgery team. No acute cholecystitis. Lipase WNL. Continue: * Zosyn 2.25gm q6h (due to ESRD) * Morphine 1mg q4H prn for pain * Zofran IV 4mg IVP Q6H prn Status: Acute (2) Pleural effusion Assessment and Plan: Patient with history of poor compliance with HD as outpatient. CT of Abdomen shows:Moderate size right-sided effusion and mild right basilar atelectasis Chest CT scan of the chest showed moderate R pleural effusion. IR consult placed- Dr. Palacios- help appreciated Thoracentesis order placed for the AM. Status: Acute (3) ESRD (end stage renal disease) on dialysis Assessment and Plan: Dr. Banks consulted- help appreciated. HD MWF As per Dr. Banks, in last year pt has been noncompliant with dialysis- only getting 2 treatments weekly. Status: Chronic (4) Electrolyte imbalance Assessment and Plan: Na 127, K+ 4.6 this AM. Improved. Hyponatremia: likely dilutional from fluid overload. Dr. Banks consulted- help appreciated. HD MWF f/u CMP in the AM Status: Acute (5) Atypical chest pain Assessment and Plan: Resolved Troponins: 0.0470, 0.0470, 0.0480 Status: Acute (6) Diarrhea Assessment and Plan: Resolved 4 days ago prior to admission. Stool leukocytes, C. Diff, Ovum and parasite- NEGATIVE Status: Acute (7) Hypothyroidism Assessment and Plan: TSH 13.20. Free T4 however 1.55. Home Synthroid 100mcg increased to 125 mcg daily given increased TSH. Status: Chronic (8) Hypertension Assessment and Plan: Started Norvasc 5mg Status: Chronic (9) Heart murmur Assessment and Plan: Last echo 2013 showed an EF of 67%. Status: Acute (10) Hyperlipidemia Assessment and Plan: FLP WNL Crestor 2.5mg PO HS Status: Chronic (11) Anemia Assessment and Plan: Hbg is 10.3 which is around his baseline. Status: Chronic (12) Prophylactic measure Assessment and Plan: heparin 5000 units sc q8h, SCDs, protonix 20mg Status: Acute
[2017-07-13] MEDS: Rosuvastatin Calcium 2.5 mg Tab PO SCH (22:29)
[2017-07-14] MEDS: Piperacill/Tazo 2.25gm in Dex 2.25 GM/50 ML BAG IVPB SCH ×4 (02:34→19:54)
[2017-07-14] MEDS: Levothyroxine 125 MCG TAB PO SCH (07:34)
[2017-07-14 08:55] LABS: BASO # 0.1 K/uL (0.0-0.2); EOS # 0.3 K/uL (0.0-0.7); EOS % 5.9 % (0.0-4.0); HEMATOCRIT 32.1 % (35.0-51.0); LYMPH # 1.3 K/uL (1.0-4.3); LYMPH % 22.6 % (20.0-40.0); MEAN CELL VOLUME 87.1 fL (80.0-94.0); MEAN CORPUSCULAR HEMOGLOBIN 29.3 pg (27.0-31.0); MEAN CORPUSCULAR HGB CONC 33.6 g/dL (33.0-37.0); MEAN PLATELET VOLUME 8.1 fL (7.2-11.7); MONO # 0.4 K/uL (0.0-0.8); MONO % 7.5 % (0.0-10.0); RED CELL DISTRIBUTION WIDTH 14.5 % (11.5-14.5); WHITE BLOOD COUNT 5.8 K/uL (4.8-10.8)
[2017-07-14] MEDS: Saccharomyces Boulardi 250 mg Cap PO SCH ×2 (09:01→17:15)
[2017-07-14] MEDS: Pantoprazole 40 mg EC Tab PO SCH (09:02)
[2017-07-14 09:18] LABS: CHLORIDE 86 mmol/L (98-107); SODIUM 124 mmol/L (132-148)
[2017-07-14 09:20] LABS: ALB/GLOB RATIO 1.9 (1.0-2.1); AST/SGOT 23 U/L (17-59); BILIRUBIN,TOTAL 0.6 mg/dL (0.2-1.3); CARBON DIOXIDE 24 mmol/L (22-30); GFR AFRICAN-AMERICAN 10; TOTAL PROTEIN 6.2 g/dL (6.3-8.3)
[2017-07-14 09:21] LABS: ALKALINE PHOSPHATASE 66 U/L (38-126); ALT/SGPT 44 U/L (21-72); BLOOD UREA NITROGEN 39 mg/dL (9-20); CALCIUM 7.9 mg/dl (8.6-10.4); GLUCOSE,RANDOM 79 mg/dL (75-110)
[2017-07-14 09:22] LABS: MAGNESIUM 1.7 mg/dL (1.6-2.3)
--- NOTE | 2017-07-14 11:44 | CP.PCM.PN ---
Subjective - Date & Time of Evaluation Date of Evaluation: 07/14/17 Time of Evaluation: 11:41 - Subjective Subjective: Seen at dialysis no more abdominal pains not dspneic remains hyponatremic- will need greater UF with dialysis. No fevers, chills, nausea, vomiting, diarrhea advised 3X weekly dialysis Objective - Vital Signs/Intake and Output Vital Signs (last 24 hours): Temp Pulse Resp BP Pulse Ox 97.6 F 77 17 134/73 100 07/14/17 09:20 07/14/17 09:20 07/14/17 09:20 07/14/17 10:50 07/14/17 09:20 - Medications Medications: Current Medications Amlodipine Besylate (Norvasc) 5 mg PO DAILY [facility] Last Admin: 07/14/17 09:02 Dose: Not Given Aspirin (Ecotrin) 81 mg PO DAILY [facility] Last Admin: 07/14/17 09:01 Dose: Not Given Calcium Acetate (Phoslo) 667 mg PO TID [facility] Last Admin: 07/14/17 09:02 Dose: Not Given Heparin Sodium (Porcine) (Heparin) 5,000 units SC Q8 [facility] Last Admin: 07/14/17 07:34 Dose: 5,000 units Piperacillin Sod/Tazobactam Sod (Zosyn 2.25 Gm Iv Premix) 2.25 gm in 50 mls @ 100 mls/hr IVPB Q6H [facility] Last Admin: 07/14/17 07:54 Dose: 100 mls/hr Levothyroxine Sodium (Synthroid) 125 mcg PO DAILY@0630 [facility] Last Admin: 07/14/17 07:34 Dose: 125 mcg Morphine Sulfate (Morphine) 1 mg IVP Q4H PRN PRN Reason: Pain, severe (8-10) Ondansetron HCl (Zofran Inj) 4 mg IVP Q6H PRN PRN Reason: Nausea/Vomiting Pantoprazole Sodium (Protonix Ec Tab) 40 mg PO DAILY [facility] Last Admin: 07/14/17 09:02 Dose: Not Given Rosuvastatin Calcium (Crestor) 2.5 mg PO HS [facility] Last Admin: 07/13/17 22:29 Dose: 2.5 mg Saccharomyces Boulardii (Florastor) 250 mg PO BID [facility] Last Admin: 07/14/17 09:01 Dose: Not Given - Labs Labs: 07/14/17 08:37 07/14/17 08:37 - Constitutional Appears: Non-toxic, No Acute Distress, Chronically Ill - Head Exam Head Exam: ATRAUMATIC, NORMAL INSPECTION - Eye Exam Eye Exam: EOMI, Normal appearance - Neck Exam Neck Exam: Normal Inspection. absent: Tenderness - Respiratory Exam Respiratory Exam: Decreased Breath Sounds, NORMAL BREATHING PATTERN - Cardiovascular Exam Cardiovascular Exam: REGULAR RHYTHM, +S1 - GI/Abdominal Exam GI & Abdominal Exam: Soft. absent: Tenderness - Neurological Exam Neurological Exam: Alert, CN II-XII Intact - Skin Skin Exam: Dry, Warm Assessment and Plan (1) Gastroenteritis Status: Acute (2) Chronic glomerulonephritis Status: Acute (3) Abdominal pain Status: Acute (4) Fluid overload Status: Acute (5) Hyponatremia with excess extracellular fluid volume Status: Acute (6) Noncompliance Status: Acute (7) ESRD (end stage renal disease) on dialysis Status: Acute - Assessment and Plan (Free Text) Plan: Increase UF with HD for thoracentesis advised fluid restriction again
--- NOTE | 2017-07-14 12:12 | CP.PCM.PN ---
<Maria Del Carmen Khanna - Last Filed: 07/14/17 18:16> Subjective - Date & Time of Evaluation Date of Evaluation: 07/14/17 Time of Evaluation: 12:09 - Subjective Subjective: Patient has been seen and examined. No overnight events reported. Patient denies any abdominal pain today. Denies any fevers, chills, SOB, or changes in urinary symptoms or bowel habits. Objective - Vital Signs/Intake and Output Vital Signs (last 24 hours): Temp Pulse Resp BP Pulse Ox 97.6 F 77 17 129/70 100 07/14/17 09:20 07/14/17 09:20 07/14/17 09:20 07/14/17 11:20 07/14/17 09:20 - Medications Medications: Current Medications Amlodipine Besylate (Norvasc) 5 mg PO DAILY [facility] Last Admin: 07/14/17 09:02 Dose: Not Given Aspirin (Ecotrin) 81 mg PO DAILY [facility] Last Admin: 07/14/17 09:01 Dose: Not Given Calcium Acetate (Phoslo) 667 mg PO TID [facility] Last Admin: 07/14/17 09:02 Dose: Not Given Heparin Sodium (Porcine) (Heparin) 5,000 units SC Q8 [facility] Last Admin: 07/14/17 07:34 Dose: 5,000 units Piperacillin Sod/Tazobactam Sod (Zosyn 2.25 Gm Iv Premix) 2.25 gm in 50 mls @ 100 mls/hr IVPB Q6H [facility] Last Admin: 07/14/17 07:54 Dose: 100 mls/hr Levothyroxine Sodium (Synthroid) 125 mcg PO DAILY@0630 [facility] Last Admin: 07/14/17 07:34 Dose: 125 mcg Morphine Sulfate (Morphine) 1 mg IVP Q4H PRN PRN Reason: Pain, severe (8-10) Ondansetron HCl (Zofran Inj) 4 mg IVP Q6H PRN PRN Reason: Nausea/Vomiting Pantoprazole Sodium (Protonix Ec Tab) 40 mg PO DAILY [facility] Last Admin: 07/14/17 09:02 Dose: Not Given Rosuvastatin Calcium (Crestor) 2.5 mg PO HS [facility] Last Admin: 07/13/17 22:29 Dose: 2.5 mg Saccharomyces Boulardii (Florastor) 250 mg PO BID [facility] Last Admin: 07/14/17 09:01 Dose: Not Given - Labs Labs: 07/14/17 08:37 07/14/17 08:37 - Constitutional Appears: Non-toxic, No Acute Distress - Head Exam Head Exam: ATRAUMATIC, NORMAL INSPECTION, NORMOCEPHALIC - Eye Exam Eye Exam: Normal appearance - ENT Exam ENT Exam: Mucous Membranes Moist - Respiratory Exam Respiratory Exam: NORMAL BREATHING PATTERN. absent: Accessory Muscle Use - Cardiovascular Exam Cardiovascular Exam: +S1, +S2. absent: RRR - GI/Abdominal Exam GI & Abdominal Exam: Soft, Normal Bowel Sounds. absent: Tenderness, Organomegaly - Extremities Exam Extremities Exam: Normal Capillary Refill. absent: Pedal Edema - Neurological Exam Neurological Exam: Alert, Awake, Oriented x3 - Psychiatric Exam Psychiatric exam: Normal Affect, Normal Mood - Skin Skin Exam: Dry, Intact, Normal Color, Warm Assessment and Plan - Assessment and Plan (Free Text) Assessment: 67 year old male with a history of ESRD on hemodialysis (MWF) admitted for generalized weakness, dizziness, abdominal pain nausea vomiting and diarrhea. Plan: (1) RUQ Pain (Resolved) -CT scan impression: Cholelithiasis. There are mild infiltration changes seen in the pericholecystic mesentery ; findings suggest early acute cholecystitis. -Patient has no white count, left shift, or bands. -General Surgery consulted Dr. Moore. -No surgery indicated at this time as per surgery team. No acute cholecystitis. -Lipase WNL. -Hep B negative -Continue: Zosyn 2.25gm q6h (due to ESRD) Morphine 1mg q4H prn for pain Zofran IV 4mg IVP Q6H prn (2) Pleural effusion (Acute) Patient with history of poor compliance with HD as outpatient. CT of Abdomen shows:Moderate size right-sided effusion and mild right basilar atelectasis Chest CT scan of the chest showed moderate R pleural effusion. IR consult placed- Dr. Palacios- help appreciated Thoracentesis pending today (3) ESRD (end stage renal disease) on dialysis (Chronic) Dr. Banks consulted- help appreciated. HD MWF As per Dr. Banks, in last year pt has been noncompliant with dialysis- only getting 2 treatments weekly. As per Dr. Banks (nephro) pt will need increased UF for HD due to Hyponatremia Dialysis today (4) Electrolyte imbalance (Acute) Na 124, K+ 3.5 this AM Hyponatremia: likely dilutional from fluid overload. As per Dr. Banks (nephro) pt will need increased UF for HD due to Hyponatremia Dr. Banks consulted- help appreciated. HD MWF Dialysis today (5) Atypical chest pain (resolved Troponins: 0.0470, 0.0470, 0.0480 (6) Diarrhea (Resolved) Resolved 4 days ago prior to admission. Stool leukocytes, C. Diff, Ovum and parasite- NEGATIVE (7) Hypothyroidism (Chronic) TSH 13.20. Free T4 however 1.55. Home Synthroid 100mcg increased to 125 mcg daily given increased TSH. Status: Chronic (8) Hypertension (Chronic) Norvasc 5mg (9) Heart murmur (Acute) Last echo 2013 showed an EF of 67%. (10) Hyperlipidemia (Chronic) FLP WNL Crestor 2.5mg PO HS (11) Anemia (Chronic) Hbg is 10.8 which is around his baseline. Status: Chronic (12) Prophylactic measure heparin 5000 units sc q8h, SCDs, protonix 20mg Dispo: Patient to go for thoracentesis today. Patient seen, discussed, and reviewed with Attending Maria Del Carmen Khanna PGY-1 <Elton Yo - Last Filed: 07/14/17 22:13> Objective - Vital Signs/Intake and Output Vital Signs (last 24 hours): Temp Pulse Resp BP Pulse Ox 97.8 F 77 20 137/78 98 07/14/17 16:26 07/14/17 16:26 07/14/17 16:26 07/14/17 16:26 07/14/17 16:26 Intake and Output: 07/14/17 07/15/17 18:59 06:59 Intake Total 100 Balance 100 - Medications Medications: Current Medications Amlodipine Besylate (Norvasc) 5 mg PO DAILY [facility] Last Admin: 07/14/17 09:02 Dose: Not Given Aspirin (Ecotrin) 81 mg PO DAILY [facility] Last Admin: 07/14/17 09:01 Dose: Not Given Calcium Acetate (Phoslo) 667 mg PO TID [facility] Last Admin: 07/14/17 17:15 Dose: 667 mg Piperacillin Sod/Tazobactam Sod (Zosyn 2.25 Gm Iv Premix) 2.25 gm in 50 mls @ 100 mls/hr IVPB Q6H [facility] Last Admin: 07/14/17 19:54 Dose: 100 mls/hr Levothyroxine Sodium (Synthroid) 125 mcg PO DAILY@0630 [facility] Last Admin: 07/14/17 07:34 Dose: 125 mcg Morphine Sulfate (Morphine) 1 mg IVP Q4H PRN PRN Reason: Pain, severe (8-10) Ondansetron HCl (Zofran Inj) 4 mg IVP Q6H PRN PRN Reason: Nausea/Vomiting Pantoprazole Sodium (Protonix Ec Tab) 40 mg PO DAILY [facility] Last Admin: 07/14/17 09:02 Dose: Not Given Rosuvastatin Calcium (Crestor) 2.5 mg PO HS [facility] Last Admin: 07/14/17 21:54 Dose: 2.5 mg Saccharomyces Boulardii (Florastor) 250 mg PO BID [facility] Last Admin: 07/14/17 17:15 Dose: 250 mg - Labs Labs: 07/14/17 08:37 07/14/17 08:37 Attending/Attestation - Attestation I have personally seen and examined this patient.: Yes I have fully participated in the care of the patient.: Yes I have reviewed all pertinent clinical information, including history, physical exam and plan: Yes Notes (Text): 07/14/17 22:09 Patient was seen and examined at 6:50 PM 07/14/17 566 Exam, assessment and plan were thoroughly gone over with the resident. Please note that IR did have patient on schedule for Thoracentesis for today for Moderate Size Right Pleural Effusion but patient was receiving HD. Extensive conversation again with patient through his family about the importance of compliance with outpatient HD 3x/week Medicne Team: Please speak with IR again on morning 07/15/17 to make sure that procedure occurs on . Patient if stable afterwards, should be discharged. Elton Yo D.O.
--- NOTE | 2017-07-14 12:56 | CARD ---
APPROVED REPORT EKG Measurement Heart [id number] <Conclusion> Normal sinus rhythm Nonspecific T wave abnormality Prolonged QT Abnormal ECG
--- NOTE | 2017-07-14 12:56 | CARD ---
APPROVED REPORT EKG Measurement Heart [id number] <Conclusion> Normal sinus rhythm Nonspecific T wave abnormality Abnormal ECG
[2017-07-14] MEDS: Rosuvastatin Calcium 2.5 mg Tab PO SCH (21:54)
[2017-07-15] MEDS: Piperacill/Tazo 2.25gm in Dex 2.25 GM/50 ML BAG IVPB SCH ×3 (02:00→14:05)
[2017-07-15] MEDS: Levothyroxine 125 MCG TAB PO SCH (05:57)
[2017-07-15] MEDS: Pantoprazole 40 mg EC Tab PO SCH (09:36)
[2017-07-15] MEDS: Saccharomyces Boulardi 250 mg Cap PO SCH ×2 (09:36→17:15)
[2017-07-15 12:33] LABS: BASO # 0.1 K/uL (0.0-0.2); BASO % 1.1 % (0.0-2.0); EOS # 0.4 K/uL (0.0-0.7); EOS % 6.2 % (0.0-4.0); HEMATOCRIT 33.4 % (35.0-51.0); LYMPH # 1.3 K/uL (1.0-4.3); MEAN CELL VOLUME 88.6 fL (80.0-94.0); MEAN CORPUSCULAR HEMOGLOBIN 29.3 pg (27.0-31.0); MEAN PLATELET VOLUME 7.9 fL (7.2-11.7); MONO # 0.6 K/uL (0.0-0.8); MONO % 10.1 % (0.0-10.0); RED CELL DISTRIBUTION WIDTH 14.8 % (11.5-14.5); WHITE BLOOD COUNT 5.9 K/uL (4.8-10.8)
[2017-07-15 12:40] LABS: POTASSIUM 4.4 mmol/L (3.6-5.2)
[2017-07-15 12:44] LABS: CALCIUM 8.5 mg/dl (8.6-10.4)
[2017-07-15 12:59] LABS: INR 1.1
--- NOTE | 2017-07-15 13:17 | US ---
PROCEDURE: Limited ultrasound of right chest performed for purposes of thoracentesis. HISTORY: Right pleural effusion COMPARISON: TECHNIQUE: Limited ultrasound right chest was performed with a curved probe. FINDINGS: There is minimal right pleural effusion. The amount of fluid is not sufficient for safe thoracentesis. IMPRESSION: No significant right pleural effusion to allow safe thoracentesis.
--- NOTE | 2017-07-15 17:21 | CP.PCM.PN ---
<Maria Del Carmen Khanna - Last Filed: 07/15/17 17:21> Subjective - Date & Time of Evaluation Date of Evaluation: 07/15/17 Time of Evaluation: 17:21 - Subjective Subjective: Patient has been seen and examined. No overnight events reported. Denies any fever, chills, CP, SOB, abdominal pain, changes in bowel habits or urinary symptoms. Objective - Vital Signs/Intake and Output Vital Signs (last 24 hours): Temp Pulse Resp BP Pulse Ox 79.7 F L 81 18 138/79 96 07/15/17 16:30 07/15/17 16:30 07/15/17 16:30 07/15/17 16:30 07/15/17 16:30 Intake and Output: 07/15/17 07/15/17 06:59 18:59 Intake Total 580 Balance 580 - Medications Medications: Current Medications Amlodipine Besylate (Norvasc) 5 mg PO DAILY [facility] Last Admin: 07/15/17 09:36 Dose: 5 mg Aspirin (Ecotrin) 81 mg PO DAILY [facility] Last Admin: 07/14/17 09:01 Dose: Not Given Calcium Acetate (Phoslo) 667 mg PO TID [facility] Last Admin: 07/15/17 17:15 Dose: 667 mg Piperacillin Sod/Tazobactam Sod (Zosyn 2.25 Gm Iv Premix) 2.25 gm in 50 mls @ 100 mls/hr IVPB Q6H [facility] Last Admin: 07/15/17 14:05 Dose: 100 mls/hr Levothyroxine Sodium (Synthroid) 125 mcg PO DAILY@0630 [facility] Last Admin: 07/15/17 05:57 Dose: 125 mcg Morphine Sulfate (Morphine) 1 mg IVP Q4H PRN PRN Reason: Pain, severe (8-10) Ondansetron HCl (Zofran Inj) 4 mg IVP Q6H PRN PRN Reason: Nausea/Vomiting Pantoprazole Sodium (Protonix Ec Tab) 40 mg PO DAILY [facility] Last Admin: 07/15/17 09:36 Dose: 40 mg Rosuvastatin Calcium (Crestor) 2.5 mg PO HS [facility] Last Admin: 07/14/17 21:54 Dose: 2.5 mg Saccharomyces Boulardii (Florastor) 250 mg PO BID [facility] Last Admin: 07/15/17 17:15 Dose: 250 mg - Labs Labs: 07/15/17 12:26 07/15/17 12:26 PT 12.5 SECONDS (9.7-12.2) H 07/15/17 12:44 INR 1.1 07/15/17 12:44 - Additional Findings Additional findings: - Constitutional Appears: Non-toxic, No Acute Distress - Head Exam Head Exam: ATRAUMATIC, NORMAL INSPECTION, NORMOCEPHALIC - Eye Exam Eye Exam: Normal appearance - ENT Exam ENT Exam: Mucous Membranes Moist - Respiratory Exam Respiratory Exam: NORMAL BREATHING PATTERN. absent: Accessory Muscle Use - Cardiovascular Exam Cardiovascular Exam: +S1, +S2. RRR - GI/Abdominal Exam GI & Abdominal Exam: Soft, Normal Bowel Sounds. absent: Tenderness, Organomegaly - Extremities Exam Extremities Exam: Normal Capillary Refill. absent: Pedal Edema - Neurological Exam Neurological Exam: Alert, Awake, Oriented x3 - Psychiatric Exam Psychiatric exam: Normal Affect, Normal Mood - Skin Skin Exam: Dry, Intact, Normal Color, Warm Assessment and Plan - Assessment and Plan (Free Text) Assessment: 67 year old male with a history of ESRD on hemodialysis (MWF) admitted for generalized weakness, dizziness, abdominal pain nausea vomiting and diarrhea. Plan: (1) RUQ Pain (Resolved) -CT scan impression: Cholelithiasis. There are mild infiltration changes seen in the pericholecystic mesentery ; findings suggest early acute cholecystitis. -Patient has no white count, left shift, or bands. -General Surgery consulted Dr. Moore. -No surgery indicated at this time as per surgery team. No acute cholecystitis. -Lipase WNL. -Hep B negative -Continue: Zosyn 2.25gm q6h (due to ESRD) Morphine 1mg q4H prn for pain Zofran IV 4mg IVP Q6H prn (2) Pleural effusion (Stable) Patient with history of poor compliance with HD as outpatient. CT of Abdomen shows:Moderate size right-sided effusion and mild right basilar atelectasis Chest CT scan of the chest showed moderate R pleural effusion. IR consult placed- Dr. Palacios- help appreciated Thoracentesis canceled due to minimal fluid (3) ESRD (end stage renal disease) on dialysis (Chronic) Dr. Banks consulted- help appreciated. HD MWF As per Dr. Banks, in last year pt has been noncompliant with dialysis- only getting 2 treatments weekly. As per Dr. Banks (nephro) pt will need increased UF for HD due to Hyponatremia Dialysis tomorrow. (4) Electrolyte imbalance (Acute) Na 124, K+ 3.5 this AM Hyponatremia: likely dilutional from fluid overload. As per Dr. Banks (nephro) pt will need increased UF for HD due to Hyponatremia Dr. Banks consulted- help appreciated. HD MWF Dialysis today (5) Atypical chest pain (resolved Troponins: 0.0470, 0.0470, 0.0480 (6) Diarrhea (Resolved) Resolved 4 days ago prior to admission. Stool leukocytes, C. Diff, Ovum and parasite- NEGATIVE (7) Hypothyroidism (Chronic) TSH 13.20. Free T4 however 1.55. Home Synthroid 100mcg increased to 125 mcg daily given increased TSH. Status: Chronic (8) Hypertension (Chronic) Norvasc 5mg (9) Heart murmur (Acute) Last echo 2013 showed an EF of 67%. (10) Hyperlipidemia (Chronic) FLP WNL Crestor 2.5mg PO HS (11) Anemia (Chronic) Hbg is 10.8 which is around his baseline. Status: Chronic (12) Prophylactic measure heparin 5000 units sc q8h, SCDs, protonix 20mg Dispo: Will likely DC tomorrow following discussion with pillowcase folder about insurance and where he will go for dialysis. Patient seen, discussed, and reviewed with Attending Maria Del Carmen Khanna PGY-1 <Keke He V - Last Filed: 07/15/17 18:22> Objective - Vital Signs/Intake and Output Vital Signs (last 24 hours): Temp Pulse Resp BP Pulse Ox 79.7 F L 81 18 138/79 96 07/15/17 16:30 07/15/17 16:30 07/15/17 16:30 07/15/17 16:30 07/15/17 16:30 Intake and Output: 07/15/17 07/15/17 06:59 18:59 Intake Total 580 Balance 580 - Medications Medications: Current Medications Amlodipine Besylate (Norvasc) 5 mg PO DAILY [facility] Last Admin: 07/15/17 09:36 Dose: 5 mg Aspirin (Ecotrin) 81 mg PO DAILY [facility] Last Admin: 07/14/17 09:01 Dose: Not Given Calcium Acetate (Phoslo) 667 mg PO TID [facility] Last Admin: 07/15/17 17:15 Dose: 667 mg Piperacillin Sod/Tazobactam Sod (Zosyn 2.25 Gm Iv Premix) 2.25 gm in 50 mls @ 100 mls/hr IVPB Q6H [facility] Last Admin: 07/15/17 14:05 Dose: 100 mls/hr Levothyroxine Sodium (Synthroid) 125 mcg PO DAILY@0630 [facility] Last Admin: 07/15/17 05:57 Dose: 125 mcg Morphine Sulfate (Morphine) 1 mg IVP Q4H PRN PRN Reason: Pain, severe (8-10) Ondansetron HCl (Zofran Inj) 4 mg IVP Q6H PRN PRN Reason: Nausea/Vomiting Pantoprazole Sodium (Protonix Ec Tab) 40 mg PO DAILY [facility] Last Admin: 07/15/17 09:36 Dose: 40 mg Rosuvastatin Calcium (Crestor) 2.5 mg PO HS [facility] Last Admin: 07/14/17 21:54 Dose: 2.5 mg Saccharomyces Boulardii (Florastor) 250 mg PO BID [facility] Last Admin: 07/15/17 17:15 Dose: 250 mg - Labs Labs: 07/15/17 12:26 07/15/17 12:26 PT 12.5 SECONDS (9.7-12.2) H 07/15/17 12:44 INR 1.1 07/15/17 12:44 Attending/Attestation - Attestation I have personally seen and examined this patient.: Yes I have fully participated in the care of the patient.: Yes I have reviewed all pertinent clinical information, including history, physical exam and plan: Yes Notes (Text): Patient seen, examined, and case discussed with day-time resident. Patient seen this afternoon. patient reports he is feeling well. Reports he was told by the radiologist that he does not have any fluid in the lungs for thoracentesis; I explained to the patient he should be compliant on his dialysis because it will relieve the fluid buildup such as pleural effusion. Will need to follow-up with case management to confirm dialysis placement and follow-up with nephrology if stable from their perspective for discharge. Assessment/Plan: (1) RUQ Pain (Resolved) * CT Abdomen/Pelvis PO (07/11/17) scan impression: Cholelithiasis. There are mild infiltration changes seen in the pericholecystic mesentery ; findings suggest early acute cholecystitis. * Patient has no white count, left shift, or bands. * General Surgery consulted Dr. Moore. * No surgery indicated at this time as per surgery team. No acute cholecystitis. * Per surgery (07/14/17), antibiotics to be stopped. no surgical intervention. * D/c Zosyn 07/15/17 * Lipase WNL. * Hep B negative (2) Pleural effusion * Patient with history of poor compliance with HD as outpatient. * CT of Abdomen shows:Moderate size right-sided effusion and mild right basilar atelectasis * Chest CT scan of the chest showed moderate R pleural effusion. * IR consult placed- Dr. Palacios- help appreciated * 07/15/17 Pleural effusion US: no significant right pleural effusion to allow safe thoracentesis (3) ESRD (end stage renal disease) on dialysis (Chronic) * Dr. Banks consulted- help appreciated. * HD MWF * As per Dr. Banks, in last year pt has been noncompliant with dialysis- only getting 2 treatments weekly. * As per Dr. Banks (nephro) pt will need increased UF for HD due to Hyponatremia (4) Electrolyte imbalance (Acute) * Dr. Banks consulted- help appreciated. * Na 128 * Potassium within normal limits (5) Atypical chest pain (resolved0 * Troponins: 0.0470, 0.0470, 0.0480 * Restart Aspirin 81mg PO daily (6) Diarrhea (Resolved) * Resolved 4 days ago prior to admission. * Stool leukocytes, C. Diff, Ovum and parasite- NEGATIVE (7) Hypothyroidism (Chronic) * TSH 13.20. Free T4 however 1.55. * Home Synthroid 100mcg increased to 125 mcg daily given increased TSH. * Will need repeat thyroid studies in 3-4 months (8) Hypertension (Chronic) * Norvasc 5mg PO daily * Monitor blood pressure (9) Heart murmur * Last echo 2013 showed an EF of 67%. * Echocardiogram (07/15/17): mild to moderate LV systolic dysfunction, Normal chamber size. Mild MR. Moderate TR (10) Hyperlipidemia (Chronic) * FLP WNL * Crestor 2.5mg PO HS (11) Anemia (Chronic) * H/H monitor * Ordered for iron stdies, ferritin, occult blood, folate, b12, haptoglobin, reticulocyte count (12) Prophylactic measure * Resumed heparin 5000 units sc q8h; held secondary to thoracentesis, SCDs, protonix 20mg Disposition: Patient complete dialysis tomorrow; will need to confirm with case management that patient has outpatient dialysis placement and follow-up nephrology if stable from their standpoint for discharge.
--- NOTE | 2017-07-15 17:35 | CARD ---
APPROVED REPORT EXAM: Two-dimensional and M-mode echocardiogram with Doppler and color Doppler. Other Information Quality : GoodRhythm : NSR INDICATION Chest Pain Murmur RENAL FAILURE, ACUTE CHOLECYSTITIS RISK FACTORS Hypertension Hyperlipidemia M-Mode DIMENSIONS RVDd1.36 (2.1-3.2cm)Left Atrium (MM)3.50 (2.5-4.0cm) IVSd0.85 (0.7-1.1cm)Aortic Root3.61 (2.2-3.7cm) LVDd5.90 (4.0-5.6cm)Aortic Cusp Exc.2.21 (1.5-2.0cm) PWd0.77 (0.7-1.1cm)FS (%) 18 % LVDs4.87 (2.0-3.8cm)LVEF (%)36 (>50%) Mitral Valve MV E Keczwxya410.1cm/sMV A Xztftmpi95.5cm/sE/A ratio1.9 TDI E/Lateral E'0.0E/Medial E'0.0 Tricuspid Valve TR Peak [id number]/sTR Peak [id number] LEFT VENTRICLE The left ventricle is normal size. There is normal left ventricular wall thickness. The systolic function is mildly to moderately impaired. There is global hypokinesis of the left ventricle. The left ventricular diastolic function is normal. RIGHT VENTRICLE The right ventricle is normal size. There is normal right ventricular wall thickness. ATRIA The left atrium size is normal. The right atrium size is normal. AORTIC VALVE The aortic valve is normal in structure. MITRAL VALVE Mitral regurgitation is mild. TRICUSPID VALVE There is moderate tricuspid regurgitation. <Conclusion> Mild to moderate LV systolic dysfunction. Normal chamber size. Mild MR. Moderate TR.
[2017-07-15 19:58] LABS: IRON 78 ug/dL (49-181)
[2017-07-15] MEDS: Rosuvastatin Calcium 2.5 mg Tab PO SCH (21:00)
[2017-07-16] MEDS: Levothyroxine 125 MCG TAB PO SCH (05:40)
[2017-07-16 07:55] LABS: RETIC% 2.4 % (0.5-1.5)
[2017-07-16 09:33] LABS: FOLATE 10.4 ng/mL
[2017-07-16] MEDS: Saccharomyces Boulardi 250 mg Cap PO SCH ×2 (09:47→19:20)
[2017-07-16] MEDS: Pantoprazole 40 mg EC Tab PO SCH (09:47)
[2017-07-16 09:50] LABS: BASO # 0.1 K/uL (0.0-0.2); BASO % 1.3 % (0.0-2.0); EOS # 0.4 K/uL (0.0-0.7); EOS % 7.6 % (0.0-4.0); HEMATOCRIT 31.7 % (35.0-51.0); LYMPH # 1.3 K/uL (1.0-4.3); LYMPH % 24.4 % (20.0-40.0); MEAN CELL VOLUME 87.7 fL (80.0-94.0); MEAN CORPUSCULAR HEMOGLOBIN 29.1 pg (27.0-31.0); MEAN CORPUSCULAR HGB CONC 33.1 g/dL (33.0-37.0); MONO # 0.5 K/uL (0.0-0.8); MONO % 8.3 % (0.0-10.0); NRBC % 0.1 % (0.0-2.0); RED CELL DISTRIBUTION WIDTH 14.9 % (11.5-14.5); WHITE BLOOD COUNT 5.5 K/uL (4.8-10.8)
[2017-07-16 09:55] LABS: ALB/GLOB RATIO 1.7 (1.0-2.1); BILIRUBIN,TOTAL 0.5 mg/dL (0.2-1.3); TOTAL PROTEIN 6.1 g/dL (6.3-8.3)
[2017-07-16 09:56] LABS: CALCIUM 8.1 mg/dl (8.6-10.4)
--- NOTE | 2017-07-16 13:45 | CP.PCM.DIS ---
<Maria Del Carmen Khanna - Last Filed: 07/16/17 19:36> Provider - Provider Date of Admission: 07/14/17 12:13 Attending physician: Elton Yo MD Time Spent in preparation of Discharge (in minutes): 40 Diagnosis - Discharge Diagnosis (1) Atypical chest pain Status: Resolved Hospital Course - Lab Results Lab Results: Micro Results 07/11/17 22:50 Stool Stool Culture - Final NO SALMONELLA, SHIGELLA OR CAMPYLOBACTER ISOLATED. 07/12/17 16:58 Urine Urine Culture - Final No Growth (<1,000 CFU/ML) 07/11/17 22:50 Stool Ova and Parasite Concentrate Exam - Final Most Recent Lab Values WBC 5.5 K/uL (4.8-10.8) 07/16/17 07:37 RBC 3.62 Mil/uL (4.40-5.90) L 07/16/17 07:37 Hgb 10.5 g/dL (12.0-18.0) L 07/16/17 07:37 Hct 31.7 % (35.0-51.0) L 07/16/17 07:37 MCV 87.7 fL (80.0-94.0) 07/16/17 07:37 MCH 29.1 pg (27.0-31.0) 07/16/17 07:37 MCHC 33.1 g/dL (33.0-37.0) 07/16/17 07:37 RDW 14.9 % (11.5-14.5) H 07/16/17 07:37 Plt Count 203 K/uL (130-400) 07/16/17 07:37 MPV 8.0 fL (7.2-11.7) 07/16/17 07:37 Neut % (Auto) 58.4 % (50.0-75.0) 07/16/17 07:37 Lymph % (Auto) 24.4 % (20.0-40.0) 07/16/17 07:37 Arroyo % (Auto) 8.3 % (0.0-10.0) 07/16/17 07:37 Eos % (Auto) 7.6 % (0.0-4.0) H 07/16/17 07:37 Baso % (Auto) 1.3 % (0.0-2.0) 07/16/17 07:37 Neut # 3.2 K/uL (1.8-7.0) 07/16/17 07:37 Lymph # 1.3 K/uL (1.0-4.3) 07/16/17 07:37 Arroyo # 0.5 K/uL (0.0-0.8) 07/16/17 07:37 Eos # 0.4 K/uL (0.0-0.7) 07/16/17 07:37 Baso # 0.1 K/uL (0.0-0.2) 07/16/17 07:37 Retic Count 2.4 % (0.5-1.5) H 07/16/17 07:37 PT 12.5 SECONDS (9.7-12.2) H 07/15/17 12:44 INR 1.1 07/15/17 12:44 Sodium 126 mmol/L (132-148) L 07/16/17 07:37 Potassium 5.0 mmol/L (3.6-5.2) 07/16/17 07:37 Chloride 89 mmol/L (98-107) L 07/16/17 07:37 Carbon Dioxide 23 mmol/L (22-30) 07/16/17 07:37 Anion Gap 19 (10-20) 07/16/17 07:37 BUN 36 mg/dL (9-20) H 07/16/17 07:37 Creatinine 5.9 mg/dL (0.8-1.5) H 07/16/17 07:37 Est GFR ( Amer) 12 07/16/17 07:37 Est GFR (Non-Af Amer) 10 07/16/17 07:37 Random Glucose 77 mg/dL (75-110) 07/16/17 07:37 Hemoglobin A1c 5.6 % (4.2-6.5) 07/12/17 07:55 Calcium 8.1 mg/dl (8.6-10.4) L 07/16/17 07:37 Phosphorus 5.0 mg/dL (2.5-4.5) H 07/14/17 08:37 Magnesium 1.7 mg/dL (1.6-2.3) 07/14/17 08:37 Iron 78 ug/dL (49-181) 07/15/17 19:37 TIBC 267 ug/dL (250-450) 07/16/17 07:37 % Saturation 28 (20-55) 07/16/17 07:37 Total Bilirubin 0.5 mg/dL (0.2-1.3) 07/16/17 07:37 AST 35 U/L (17-59) 07/16/17 07:37 ALT 44 U/L (21-72) 07/16/17 07:37 Alkaline Phosphatase 53 U/L (38-126) 07/16/17 07:37 Total Creatine Kinase 127 U/L (55-170) 07/12/17 06:42 CK-MB (Mass) 1.85 ng/mL (0.0-3.38) 07/12/17 06:42 Troponin I, Quant 0.0480 ng/mL (0.00-0.120) 07/12/17 06:42 Total Protein 6.1 g/dL (6.3-8.3) L 07/16/17 07:37 Albumin 3.8 g/dL (3.5-5.0) 07/16/17 07:37 Globulin 2.3 gm/dL (2.2-3.9) 07/16/17 07:37 Albumin/Globulin Ratio 1.7 (1.0-2.1) 07/16/17 07:37 Triglycerides 65 mg/dL (0-149) D 07/12/17 07:55 Cholesterol 118 mg/dL (0-199) 07/12/17 07:55 LDL Cholesterol Direct 66 mg/dL (0-129) 07/12/17 07:55 HDL Cholesterol 39 mg/dL (30-70) 07/12/17 07:55 Lipase 126 U/L (23-300) 07/12/17 07:55 Vitamin B12 654 pg/mL (239-931) 07/16/17 07:37 Folate 10.4 ng/mL 07/16/17 07:37 Free T4 1.55 ng/dL (0.78-2.19) 07/12/17 07:55 TSH 3rd Generation 13.10 mIU/L (0.46-4.68) H 07/12/17 07:55 Urine Color Straw (YELLOW) 07/11/17 13:09 Urine Clarity Clear (Clear) 07/11/17 13:09 Urine pH 8.0 (5.0-8.0) 07/11/17 13:09 Ur Specific Mccrory 1.005 (1.003-1.030) 07/11/17 13:09 Urine Protein 2+ mg/dL (NEGATIVE) H 07/11/17 13:09 Urine Glucose (UA) 1+ mg/dL (Normal) H 07/11/17 13:09 Urine Ketones Negative mg/dL (NEGATIVE) 07/11/17 13:09 Urine Blood 1+ (NEGATIVE) H 07/11/17 13:09 Urine Nitrate Negative (NEGATIVE) 07/11/17 13:09 Urine Bilirubin Negative (NEGATIVE) 07/11/17 13:09 Urine Urobilinogen Normal mg/dL (0.2-1.0) 07/11/17 13:09 Ur Leukocyte Esterase Neg Kye/uL (Negative) 07/11/17 13:09 Urine WBC (Auto) 1 /hpf (0-5) 07/11/17 13:09 Urine RBC (Auto) 4 /hpf (0-3) H 07/11/17 13:09 Stool Leukocytes, Qual Negative (NEGATIVE) 07/11/17 22:50 C. difficile Ag & Toxin Negative (NEGATIVE) 07/11/17 22:50 Hep Bs Antigen Negative (NEGATIVE) 07/14/17 08:37 - Hospital Course Hospital Course: Patient is a 67 year old male with a history of ESRD on hemdyalsis MWF who presented complaining of, generalized weakness, dizziness, abdominal pain, nausea. vomiting and diarrhea. CT scan of abdomen showed cholelithiasis with mild infilration changes seen in pericholecystic mesentary, findings suggested of cholecystitis. Patient was afebrile, without leukocytosis or left shift. He was started on Zosyn due to ESRD, Morphine for pain control, and Zofran for Nausea. CT scan also showed moderate right sided effusion and mild right basilar atelectasis. Patient was scheduled to get thoracentesis. Per IR, there was not a enough fluid for a safe thoracentesis. 2nd CT showed chololithiasis with vague infiltration. Following that CT, patient was changed from a diagnosis of cholecystitis to chololithiasis. EKG showed NSR, prolonged QT and non-specific T wave abnormality. Patient's abdominal pain resolved. Urine and Stool cultures were negative. Stool OVA and Parasite were negative. C. Diff Ag and Toxin were negative. Hep Bs Antigen was negative. Patient tolerated regular diet. Patient had daily reinforcement of the importance going to his dialysis sessions. Patient is stable for discharge. The discharge instructions below were explained in Maltese. Patient will go home with increased dose of Synthroid (125mcg changed from 100mcg) and new medication of Norvasc. He will need thryoid studies in 3 months. He is to follow up with PMD within 1 week. Patient is agreeable to plan and new medications. Stand Grinder ID # - [id number] Patient seen and discussed with Attending Maria Del Carmen Khanna - PGY-1 - Date & Time of H&P Date of H&P: 07/16/17 Time of H&P: 15:00 Discharge Exam - Head Exam Head Exam: ATRAUMATIC, NORMAL INSPECTION, NORMOCEPHALIC - Eye Exam Eye Exam: EOMI, Normal appearance - Respiratory Exam Respiratory Exam: Clear to PA & Lateral, NORMAL BREATHING PATTERN. absent: Accessory Muscle Use, Wheezes - Cardiovascular Exam Cardiovascular Exam: RRR, +S1, +S2 - GI/Abdominal Exam GI & Abdominal Exam: Normal Bowel Sounds, Soft. absent: Organomegaly, Tenderness - Neurological Exam Neurological exam: Alert, Oriented x3 - Psychiatric Exam Psychiatric exam: Normal Affect, Normal Mood - Skin Skin Exam: Dry, Intact, Normal Color, Warm Discharge Plan - Discharge Medications Prescriptions: RX: amLODIPine [Norvasc] 5 mg PO DAILY #30 tab RX: Levothyroxine [Synthroid] 125 mcg PO DAILY@0630 #30 tab - Follow Up Plan Condition: STABLE Disposition: HOME/ ROUTINE Instructions: Levothyroxine (By mouth), Amlodipine (By mouth), Chest Pain (DC) , Cholecystitis (DC), Pleural Effusion (DC), Acute Diarrhea (GEN) Additional Instructions: Discharge post dialysis session. Patient is medically stable for discharge. Patient to establish care at the [facility] - . Patient upon follow up will need repeat thyroid studies in 3-4 months. New perscriptions: Levothyroxine 125 mcg QAM, 30 tabs, 1 refill; Norvasc 5mg Daily, 30 tabs. <Keke He V - Last Filed: 07/16/17 20:50> Provider - Provider Date of Admission: 07/14/17 12:13 Attending physician: Elton Yo MD Hospital Course - Lab Results Lab Results: Micro Results 07/11/17 22:50 Stool Stool Culture - Final NO SALMONELLA, SHIGELLA OR CAMPYLOBACTER ISOLATED. 07/12/17 16:58 Urine Urine Culture - Final No Growth (<1,000 CFU/ML) 07/11/17 22:50 Stool Ova and Parasite Concentrate Exam - Final Most Recent Lab Values WBC 5.5 K/uL (4.8-10.8) 07/16/17 07:37 RBC 3.62 Mil/uL (4.40-5.90) L 07/16/17 07:37 Hgb 10.5 g/dL (12.0-18.0) L 07/16/17 07:37 Hct 31.7 % (35.0-51.0) L 07/16/17 07:37 MCV 87.7 fL (80.0-94.0) 07/16/17 07:37 MCH 29.1 pg (27.0-31.0) 07/16/17 07:37 MCHC 33.1 g/dL (33.0-37.0) 07/16/17 07:37 RDW 14.9 % (11.5-14.5) H 07/16/17 07:37 Plt Count 203 K/uL (130-400) 07/16/17 07:37 MPV 8.0 fL (7.2-11.7) 07/16/17 07:37 Neut % (Auto) 58.4 % (50.0-75.0) 07/16/17 07:37 Lymph % (Auto) 24.4 % (20.0-40.0) 07/16/17 07:37 Arroyo % (Auto) 8.3 % (0.0-10.0) 07/16/17 07:37 Eos % (Auto) 7.6 % (0.0-4.0) H 07/16/17 07:37 Baso % (Auto) 1.3 % (0.0-2.0) 07/16/17 07:37 Neut # 3.2 K/uL (1.8-7.0) 07/16/17 07:37 Lymph # 1.3 K/uL (1.0-4.3) 07/16/17 07:37 Arroyo # 0.5 K/uL (0.0-0.8) 07/16/17 07:37 Eos # 0.4 K/uL (0.0-0.7) 07/16/17 07:37 Baso # 0.1 K/uL (0.0-0.2) 07/16/17 07:37 Retic Count 2.4 % (0.5-1.5) H 07/16/17 07:37 PT 12.5 SECONDS (9.7-12.2) H 07/15/17 12:44 INR 1.1 07/15/17 12:44 Sodium 126 mmol/L (132-148) L 07/16/17 07:37 Potassium 5.0 mmol/L (3.6-5.2) 07/16/17 07:37 Chloride 89 mmol/L (98-107) L 07/16/17 07:37 Carbon Dioxide 23 mmol/L (22-30) 07/16/17 07:37 Anion Gap 19 (10-20) 07/16/17 07:37 BUN 36 mg/dL (9-20) H 07/16/17 07:37 Creatinine 5.9 mg/dL (0.8-1.5) H 07/16/17 07:37 Est GFR ( Amer) 12 07/16/17 07:37 Est GFR (Non-Af Amer) 10 07/16/17 07:37 Random Glucose 77 mg/dL (75-110) 07/16/17 07:37 Hemoglobin A1c 5.6 % (4.2-6.5) 07/12/17 07:55 Calcium 8.1 mg/dl (8.6-10.4) L 07/16/17 07:37 Phosphorus 5.0 mg/dL (2.5-4.5) H 07/14/17 08:37 Magnesium 1.7 mg/dL (1.6-2.3) 07/14/17 08:37 Iron 78 ug/dL (49-181) 07/15/17 19:37 TIBC 267 ug/dL (250-450) 07/16/17 07:37 % Saturation 28 (20-55) 07/16/17 07:37 Total Bilirubin 0.5 mg/dL (0.2-1.3) 07/16/17 07:37 AST 35 U/L (17-59) 07/16/17 07:37 ALT 44 U/L (21-72) 07/16/17 07:37 Alkaline Phosphatase 53 U/L (38-126) 07/16/17 07:37 Total Creatine Kinase 127 U/L (55-170) 07/12/17 06:42 CK-MB (Mass) 1.85 ng/mL (0.0-3.38) 07/12/17 06:42 Troponin I, Quant 0.0480 ng/mL (0.00-0.120) 07/12/17 06:42 Total Protein 6.1 g/dL (6.3-8.3) L 07/16/17 07:37 Albumin 3.8 g/dL (3.5-5.0) 07/16/17 07:37 Globulin 2.3 gm/dL (2.2-3.9) 07/16/17 07:37 Albumin/Globulin Ratio 1.7 (1.0-2.1) 07/16/17 07:37 Triglycerides 65 mg/dL (0-149) D 07/12/17 07:55 Cholesterol 118 mg/dL (0-199) 07/12/17 07:55 LDL Cholesterol Direct 66 mg/dL (0-129) 07/12/17 07:55 HDL Cholesterol 39 mg/dL (30-70) 07/12/17 07:55 Lipase 126 U/L (23-300) 07/12/17 07:55 Vitamin B12 654 pg/mL (239-931) 07/16/17 07:37 Folate 10.4 ng/mL 07/16/17 07:37 Free T4 1.55 ng/dL (0.78-2.19) 07/12/17 07:55 TSH 3rd Generation 13.10 mIU/L (0.46-4.68) H 07/12/17 07:55 Urine Color Straw (YELLOW) 07/11/17 13:09 Urine Clarity Clear (Clear) 07/11/17 13:09 Urine pH 8.0 (5.0-8.0) 07/11/17 13:09 Ur Specific Mccrory 1.005 (1.003-1.030) 07/11/17 13:09 Urine Protein 2+ mg/dL (NEGATIVE) H 07/11/17 13:09 Urine Glucose (UA) 1+ mg/dL (Normal) H 07/11/17 13:09 Urine Ketones Negative mg/dL (NEGATIVE) 07/11/17 13:09 Urine Blood 1+ (NEGATIVE) H 07/11/17 13:09 Urine Nitrate Negative (NEGATIVE) 07/11/17 13:09 Urine Bilirubin Negative (NEGATIVE) 07/11/17 13:09 Urine Urobilinogen Normal mg/dL (0.2-1.0) 07/11/17 13:09 Ur Leukocyte Esterase Neg Kye/uL (Negative) 07/11/17 13:09 Urine WBC (Auto) 1 /hpf (0-5) 07/11/17 13:09 Urine RBC (Auto) 4 /hpf (0-3) H 07/11/17 13:09 Stool Leukocytes, Qual Negative (NEGATIVE) 07/11/17 22:50 C. difficile Ag & Toxin Negative (NEGATIVE) 07/11/17 22:50 Hep Bs Antigen Negative (NEGATIVE) 07/14/17 08:37 Attending/Attestation - Attestation I have personally seen and examined this patient.: Yes I have fully participated in the care of the patient.: Yes I have reviewed all pertinent clinical information, including history, physical exam and plan: Yes Notes (Text): Patient seen, examined, and case discussed with day-time resident. Patient seen this morning. Patient reports he is feeling well; awaiting dialysis this afternoon. Patient has dialysis spot secured as outpatient discussed with case management and social this morning. Patient understands he cannot miss his dialysis (Friday sessions) will lead to fluid overload state including buildup of fluid in the lungs. Discussed with nephrology, believes sodium is dilutional; patient will need to compliant on his dialysis Patient stable for discharge today. Resident use translation inDemand interpretor, Maltese to discuss discharge instructions with the patient who verbalized understanding and agrees. Reviewed and medications reconciled with resident upon discharge. New prescriptions: 1) Norvasc 5mg PO daily (30 tabs/0 refills) 2) Levothyroxine 125mcg POq am (30 tabs/1 refill) will need repeat thyroids to adjust thyroid medication with clinical judgement upon reassessment Patient recommended to follow-up and establish care at the [facility] ([phone]) upon discharge. This is a summary of patient's hospitalization. Please see EMR for further details. Assessment/Plan: (1) RUQ Pain (Resolved) * CT Abdomen/Pelvis PO (07/11/17) scan impression: Cholelithiasis. There are mild infiltration changes seen in the pericholecystic mesentery ; findings suggest early acute cholecystitis. * Patient has no white count, left shift, or bands. * General Surgery consulted Dr. Moore. * No surgery indicated at this time as per surgery team. No acute cholecystitis. * Per surgery (07/14/17), antibiotics to be stopped. no surgical intervention. * D/c Zosyn 07/15/17 * Lipase WNL. * Hep B negative (2) Pleural effusion-->resolved * Patient with history of poor compliance with HD as outpatient. * CT of Abdomen shows:Moderate size right-sided effusion and mild right basilar atelectasis * Chest CT scan of the chest showed moderate R pleural effusion. * IR consult placed- Dr. Palacios- help appreciated * 07/15/17 Pleural effusion US: no significant right pleural effusion to allow safe thoracentesis (3) ESRD (end stage renal disease) on dialysis (Chronic) * Dr. Banks consulted- help appreciated. * HD MWF * As per Dr. Banks, in last year pt has been noncompliant with dialysis- only getting 2 treatments weekly. * As per Dr. Banks (nephro) pt will need increased UF for HD due to Hyponatremia * Patient to have dialysis prior to discharge today * Patient to be on MWF scheduled and advised compliance to avoid fluid buildup (4) Electrolyte imbalance (Acute) * Dr. Banks consulted- help appreciated. * Na 126-->likely dilutational * Potassium within normal limits (5) Atypical chest pain (resolved) * Troponins: 0.0470, 0.0470, 0.0480 * Restart Aspirin 81mg PO daily-->continue upon discharge (6) Diarrhea (Resolved) * Resolved 4 days ago prior to admission. * Stool leukocytes, C. Diff, Ovum and parasite- NEGATIVE (7) Hypothyroidism (Chronic) * TSH 13.20. Free T4 however 1.55. * Home Synthroid 100mcg increased to 125 mcg daily given increased TSH. * Will need repeat thyroid studies in 3-4 months (8) Hypertension (Chronic) * Norvasc 5mg PO daily-->provided upon discharge * Monitor blood pressure (9) Heart murmur * Last echo 2013 showed an EF of 67%. * Echocardiogram (07/15/17): mild to moderate LV systolic dysfunction, Normal chamber size. Mild MR. Moderate TR (10) Hyperlipidemia (Chronic) * FLP WNL * Crestor 2.5mg PO HS-->resume Simvastatin upon discharge (11) Anemia (Chronic) * H/H monitor (12) Prophylactic measure * Resumed heparin 5000 units sc q8h; held secondary to thoracentesis, SCDs, protonix 20mg
--- NOTE | 2017-07-16 14:11 | CP.PCM.PN ---
Subjective - Date & Time of Evaluation Date of Evaluation: 07/16/17 Time of Evaluation: 14:08 - Subjective Subjective: HTN still elevated Due for dialysis now Discharge plans noted Na still low- advised fluid restriction no more abdominal pains, nausea, vomiting. No fevers, chills, HAs, CPs Objective - Vital Signs/Intake and Output Vital Signs (last 24 hours): Temp Pulse Resp BP Pulse Ox 97.5 F L 89 20 135/75 98 07/16/17 07:15 07/16/17 09:10 07/16/17 07:15 07/16/17 07:15 07/16/17 09:10 Intake and Output: 07/16/17 07/16/17 06:59 18:59 Intake Total 1000 Balance 1000 - Medications Medications: Current Medications Amlodipine Besylate (Norvasc) 10 mg PO DAILY [facility] Aspirin (Ecotrin) 81 mg PO DAILY [facility] Last Admin: 07/14/17 09:01 Dose: Not Given Aspirin (Aspirin Chewable) 81 mg PO DAILY [facility] Last Admin: 07/16/17 09:47 Dose: 81 mg Calcium Acetate (Phoslo) 667 mg PO TID [facility] Last Admin: 07/16/17 13:25 Dose: 667 mg Heparin Sodium (Porcine) (Heparin) 5,000 units SC Q8 [facility] Last Admin: 07/16/17 13:25 Dose: 5,000 units Levothyroxine Sodium (Synthroid) 125 mcg PO DAILY@0630 [facility] Last Admin: 07/16/17 05:40 Dose: 125 mcg Ondansetron HCl (Zofran Inj) 4 mg IVP Q6H PRN PRN Reason: Nausea/Vomiting Pantoprazole Sodium (Protonix Ec Tab) 40 mg PO DAILY [facility] Last Admin: 07/16/17 09:47 Dose: 40 mg Rosuvastatin Calcium (Crestor) 2.5 mg PO HS [facility] Last Admin: 07/15/17 21:00 Dose: 2.5 mg Saccharomyces Boulardii (Florastor) 250 mg PO BID [facility] Last Admin: 07/16/17 09:47 Dose: 250 mg - Labs Labs: 07/16/17 07:37 07/16/17 07:37 PT 12.5 SECONDS (9.7-12.2) H 07/15/17 12:44 INR 1.1 10/24/17 12:44 - Constitutional Appears: Chronically Ill - Eye Exam Eye Exam: EOMI, Normal appearance - Neck Exam Neck Exam: Normal Inspection. absent: Tenderness - Respiratory Exam Respiratory Exam: Rales, NORMAL BREATHING PATTERN - Cardiovascular Exam Cardiovascular Exam: REGULAR RHYTHM, +S1 - GI/Abdominal Exam GI & Abdominal Exam: Soft. absent: Tenderness - Extremities Exam Extremities Exam: Normal Inspection. absent: Tenderness - Neurological Exam Neurological Exam: Alert, CN II-XII Intact - Skin Skin Exam: Dry, Warm Assessment and Plan (1) Gastroenteritis Status: Acute (2) Chronic glomerulonephritis Status: Acute (3) Abdominal pain Status: Acute (4) Fluid overload Status: Acute (5) Hyponatremia with excess extracellular fluid volume Status: Acute (6) Noncompliance Status: Acute (7) ESRD (end stage renal disease) on dialysis Status: Acute - Assessment and Plan (Free Text) Plan: Dilaysis today with adequate UF Increase amlodipine dose If discharged will follow up at dialysis
[2017-07-16 14:59] VITALS: RESP 16
[2017-07-16 15:01] VITALS: O2SAT 100
[2017-07-16 18:50] VITALS: BP 143/77; TEMP 97.4
[2017-07-17 00:34] VITALS: PULSE 85
--- NOTE | 2017-07-17 14:01 | CARD ---
APPROVED REPORT EKG Measurement Heart [id number] <Conclusion> Normal sinus rhythm T wave abnormality, consider anterior ischemia Prolonged QT Abnormal ECG
== END 2017-07-16 20:10 | disposition home or self-care (01) | DRG 444 ==
LOC: C.ER 10:53 → C.9E 17:19 → INTOOBSV 17:19 → C.3T 18:42 → C.9E 18:55 → C.5S 21:22 → OBSVTOIN 07-14 12:13
PROVIDERS: ADMIT Family Medicine; ATTEND Family Medicine
PROC: 5A1D70Z Performance of Urinary Filtration, Intermittent, Less than 6 Hours Per Day (ICD-10-PCS; principal; 2017-07-16)
DX: K80.10 Calculus of gallbladder with chronic cholecystitis without obstruction (principal); N18.6 End stage renal disease; J90 Pleural effusion, not elsewhere classified; E87.1 Hypo-osmolality and hyponatremia; I12.0 Hypertensive chronic kidney disease with stage 5 chronic kidney disease or end stage renal disease; J98.11 Atelectasis; K52.9 Noninfective gastroenteritis and colitis, unspecified; R07.89 Other chest pain; Z99.2 Dependence on renal dialysis; E03.9 Hypothyroidism, unspecified; D63.1 Anemia in chronic kidney disease; E78.5 Hyperlipidemia, unspecified; E78.00 Pure hypercholesterolemia, unspecified; R01.1 Cardiac murmur, unspecified; E87.70 Fluid overload, unspecified; M10.9 Gout, unspecified; Z79.82 Long term (current) use of aspirin; Z91.15 Patient's noncompliance with renal dialysis; Z91.19 Patient's noncompliance with other medical treatment and regimen

== ENCOUNTER 2017-08-11 12:51 | Emergency (ER) | payer MEDICAID, OTHER ==
[2017-08-11 13:19] VITALS: TEMP 97.4
--- NOTE | 2017-08-11 14:37 | C.PDOC ---
History Of Present Illness 67 year old male presents to the ED for evaluation of anal itchiness and a lump to the area which he noted this morning. Patient denies pain or tenderness around the area, abdominal pain, constipation, fever, chills. Time Seen by Provider: 08/11/17 14:18 Chief Complaint (Nursing): GI Problem History Per: Patient History/Exam Limitations: no limitations Onset/Duration Of Symptoms: Hrs Current Symptoms Are (Timing): Still Present Additional History Per: Patient Past Medical History Reviewed: Historical Data, Nursing Documentation, Vital Signs Vital Signs: Last Vital Signs Temp 97.4 F L 08/11/17 13:14 Pulse 82 08/11/17 14:44 Resp 20 08/11/17 14:44 BP 130/70 08/11/17 14:44 Pulse Ox 100 08/11/17 15:52 - Medical History PMH: Arthritis, HTN, Hypothyroidism, Peripheral Edema (left arm and hand edema) , Chronic Kidney Disease Denies: Alzheimer's Disease, Anemia, Anxiety, Atrial Fibrillation, Bipolar Disorder, Cardia Arrhythmia, CHF, Crohn's Disease, Dementia, Depression, Diverticulitis, Fractures, Gastritis, Gall Bladder Disease, HIV, Hypercholesterolemia, Hyperthyroidism, Kidney Stones, Migraine, Mitral Valve Prolapse, Multiple Sclerosis, Osteoporosis, Paranoia, Parkinson's Disease, Post Traumatic Stress Disorder, Rheumatoid Arthritis, Schizophrenia, Seizures, Sickle Cell Disease, Sexually Transmitted Disease, TIA Surgical History: No Surg Hx Denies: Appendectomy, CABG, Carotid Endarterectomy, Cholecystectomy, Coronary Stent, Pacemaker, Tonsillectomy - [facility] Procedures (07/14/17) ARTHROCENTESIS (06/24/14) DIALYSIS ARTERIOVENOSTOM (06/24/14) HEMODIALYSIS (06/24/14) VENOUS CATHETERIZATION FOR RENAL DIALYSIS (06/24/14) Family History: States: Unknown Family Hx - Social History Hx Tobacco Use: No Hx Alcohol Use: Yes Hx Substance Use: No - Immunization History Hx Tetanus Toxoid Vaccination: No Hx Influenza Vaccination: No Hx Pneumococcal Vaccination: No Review Of Systems Constitutional: Negative for: Fever, Chills Gastrointestinal: Positive for: Other (anal itchiness and lump around area ). Negative for: Abdominal Pain, Constipation, Rectal Pain Physical Exam - Physical Exam Appears: Non-toxic, No Acute Distress Skin: Normal Color, Warm, Dry Rectal: Hemorrhoids (external, soft, non-thrombosed, non-inflamed ) Neurological/Psych: Oriented x3, Normal Speech, Normal Cognition Gait: Steady ED Course And Treatment O2 Sat by Pulse Oximetry: 100 (on RA) Pulse Ox Interpretation: Normal Progress Note: On reassessment, patient is resting comfortably, showing no signs of distress and is stable for discharge. Patient is given Rx for Proctofoam-Hc and is advised to follow up with his PMD within 1-2 days for further evaluation and/or return to the ED if symptoms worsen. Disposition - Disposition Referrals: [facility] [Outside] Disposition: HOME/ ROUTINE Disposition Time: 14:31 Condition: STABLE Additional Instructions: Follow up with PMD within 1-2 days. Return to ED if feel worse. Prescriptions: Hydrocortisone-Pramoxine 1%-1% [Proctofoam-Hc 1%-1%] 1 appl TP 5XD #1 aer Instructions: Hemorrhoids (ED) Forms: [employer] (Telugu) Print Language: INDONESIAN - Clinical Impression Clinical Impression: External hemorrhoid - PA / [employer] WORK[employer] / Resident Statement MD/DO has reviewed & agrees with the documentation as recorded. - Scribe Statement The provider has reviewed the documentation as recorded by the Scribe (Sneha Yo) All medical record entries made by the Scribe were at my direction and personally dictated by me. I have reviewed the chart and agree that the record accurately reflects my personal performance of the history, physical exam, medical decision making, and the department course for this patient. I have also personally directed, reviewed, and agree with the discharge instructions and disposition.
[2017-08-11 14:47] VITALS: BP 130/70; PULSE 82; RESP 20
[2017-08-11 15:39] VITALS: O2SAT 100
== END 2017-08-11 14:47 | disposition home or self-care (01) ==
LOC: C.ER 12:51
DX: K64.4 Residual hemorrhoidal skin tags (principal)

== ENCOUNTER 2017-10-30 10:35 | Emergency (ER) | payer OTHER ==
[2017-10-30 11:08] VITALS: BP 149/74; PULSE 79; RESP 20; TEMP 98; O2SAT 98
--- NOTE | 2017-10-30 17:59 | C.PDOC ---
History Of Present Illness 67 year old male presents to the ED for evaluation of bleeding to this left upper arm AV shunt. Upon ED arrival, a couple drops were noted around the area. Patient has no other complaints at this time. Chief Complaint (Nursing): Upper Extremity Problem/Injury History Per: Patient History/Exam Limitations: no limitations Current Symptoms Are (Timing): Still Present Additional History Per: Patient Past Medical History Reviewed: Historical Data, Nursing Documentation, Vital Signs Vital Signs: Last Vital Signs Temp 98 F 10/30/17 11:04 Pulse 79 10/30/17 11:04 Resp 20 10/30/17 11:04 BP 149/74 10/30/17 11:04 Pulse Ox 98 10/30/17 18:20 - Medical History PMH: Arthritis, HTN, Hypothyroidism, Peripheral Edema (left arm and hand edema) , End Stage Renal Disease, Chronic Kidney Disease Denies: Alzheimer's Disease, Anemia, Anxiety, Atrial Fibrillation, Bipolar Disorder, Cardia Arrhythmia, CHF, Crohn's Disease, Dementia, Depression, Diverticulitis, Fractures, Gastritis, Gall Bladder Disease, HIV, Hypercholesterolemia, Hyperthyroidism, Kidney Stones, Migraine, Mitral Valve Prolapse, Multiple Sclerosis, Osteoporosis, Paranoia, Parkinson's Disease, Post Traumatic Stress Disorder, Rheumatoid Arthritis, Schizophrenia, Seizures, Sickle Cell Disease, Sexually Transmitted Disease, TIA Surgical History: Denies: Appendectomy, CABG, Carotid Endarterectomy, Cholecystectomy, Coronary Stent, Pacemaker, Tonsillectomy - [facility] (07/14/17) ARTHROCENTESIS (06/24/14) DIALYSIS ARTERIOVENOSTOM (06/24/14) HEMODIALYSIS (06/24/14) VENOUS CATHETERIZATION FOR RENAL DIALYSIS (06/24/14) Family History: States: Unknown Family Hx - Social History Hx Tobacco Use: No Hx Alcohol Use: Yes Hx Substance Use: No - Immunization History Hx Tetanus Toxoid Vaccination: No Hx Influenza Vaccination: No Hx Pneumococcal Vaccination: No Review Of Systems Skin: Positive for: Other (Bleeding at AV shunt ) Physical Exam - Physical Exam Appears: Non-toxic, No Acute Distress Skin: Normal Color, Warm, Dry, Other (AV graft on left upper extremity with minimal bleeding ) Neck: Supple Chest: Symmetrical, No Deformity, No Tenderness Cardiovascular: Rhythm Regular Respiratory: Normal Breath Sounds, No Rales, No Rhonchi, No Wheezing Extremity: Normal ROM, Capillary Refill (less than 2 seconds ) Neurological/Psych: Oriented x3, Normal Speech, Normal Cognition ED Course And Treatment O2 Sat by Pulse Oximetry: 98 (on RA ) Pulse Ox Interpretation: Normal Medical Decision Making Medical Decision Making: Progress: Wound was bandaged. On reassessment, patient is resting comfortably, showing no signs of distress and bleeding has been controlled. Patient is stable for discharged. Disposition - [facility] - Disposition: HOME/ ROUTINE Disposition Time: 13:00 Condition: IMPROVED Additional Instructions: Thank you for letting us take care of you today. The emergency medical care you received today was directed at your acute symptoms. If you were prescribed any medication, please fill it and take as directed. It may take several days for your symptoms to resolve. Return to the Emergency Department if your symptoms worsen, do not improve, or if you have any other problems. Please contact your doctor or call one of the physicians/clinics you have been referred to that are listed on the Patient Visit Information form that is included in your discharge packet. Bring any paperwork you were given at discharge with you along with any medications you are taking to your follow up visit. Our treatment cannot replace ongoing medical care by a primary care provider (PCP) outside of the emergency department. Thank you for allowing the [facility] team to be part of your care today. Please follow up with your doctor in 2-3 days for re-evaluation and further management. Instructions: End Stage Kidney Disease (ED) Forms: [facility] (Telugu) - Clinical Impression Clinical Impression: ESRD (end stage renal disease) - Scribe Statement The provider has reviewed the documentation as recorded by the Scribe (Sneha Yo) Provider Attestation: All medical record entries made by the Scribe were at my direction and personally dictated by me. I have reviewed the chart and agree that the record accurately reflects my personal performance of the history, physical exam, medical decision making, and the department course for this patient. I have also personally directed, reviewed, and agree with the discharge instructions and disposition.
== END 2017-10-30 13:28 | disposition home or self-care (01) ==
LOC: C.ER 10:35
DX: I12.0 Hypertensive chronic kidney disease with stage 5 chronic kidney disease or end stage renal disease (principal); N18.6 End stage renal disease; E03.9 Hypothyroidism, unspecified

== ENCOUNTER 2018-01-18 05:48 | Inpatient (IN) | payer OTHER ==
[2018-01-18 06:21] LABS: BASO # 0.1 K/uL (0.0-0.2); BASO % 0.9 % (0.0-2.0); EOS # 0.3 K/uL (0.0-0.7); EOS % 4.7 % (0.0-4.0); HEMOGLOBIN 9.6 g/dL (12.0-18.0); LYMPH # 1.1 K/uL (1.0-4.3); LYMPH % 17.3 % (20.0-40.0); MEAN CELL VOLUME 87.4 fL (80.0-94.0); MEAN CORPUSCULAR HEMOGLOBIN 29.7 pg (27.0-31.0); MEAN PLATELET VOLUME 7.4 fL (7.2-11.7); MONO # 0.4 K/uL (0.0-0.8); MONO % 6.6 % (0.0-10.0); NEUT # 4.5 K/uL (1.8-7.0); NEUT % 70.5 % (50.0-75.0); RBC 3.23 Mil/uL (4.40-5.90); RED CELL DISTRIBUTION WIDTH 14.2 % (11.5-14.5); WHITE BLOOD COUNT 6.4 K/uL (4.8-10.8)
--- NOTE | 2018-01-18 06:26 | C.PDOC ---
History Of Present Illness 67 year old male presents to the ED for evaluation of nausea, vomiting, and diarrhea which began 2 days ago. Patient also reports some epigrastric and right upper quadrant abdominal pain. Per old records, patient was diagnosed with biliary colic on 06/2017. Patient states his last dialysis session was yesterday. He denies fever, chills. Time Seen by Provider: 01/18/18 06:03 Chief Complaint (Nursing): Chest Pain History Per: Patient History/Exam Limitations: no limitations Onset/Duration Of Symptoms: Days (2) Current Symptoms Are (Timing): Still Present Quality Of Discomfort: "Pain" Associated Symptoms: Nausea, Vomiting, Diarrhea. denies: Fever, Chills Last Bowel Movement: Today Additional History Per: Patient Past Medical History Reviewed: Historical Data, Nursing Documentation, Vital Signs Vital Signs: Last Vital Signs Temp 97.7 F 01/18/18 05:57 Pulse 90 01/18/18 06:30 Resp 18 01/18/18 06:30 BP 180/99 H 01/18/18 06:30 Pulse Ox 98 01/18/18 06:32 - Medical History PMH: Arthritis, HTN, Hypothyroidism, Peripheral Edema (left arm and hand edema) , End Stage Renal Disease, Chronic Kidney Disease Denies: Alzheimer's Disease, Anemia, Anxiety, Atrial Fibrillation, Bipolar Disorder, Cardia Arrhythmia, CHF, Crohn's Disease, Dementia, Depression, Diverticulitis, Fractures, Gastritis, Gall Bladder Disease, HIV, Hypercholesterolemia, Hyperthyroidism, Kidney Stones, Migraine, Mitral Valve Prolapse, Multiple Sclerosis, Osteoporosis, Paranoia, Parkinson's Disease, Post Traumatic Stress Disorder, Rheumatoid Arthritis, Schizophrenia, Seizures, Sickle Cell Disease, Sexually Transmitted Disease, TIA Surgical History: No Surg Hx Denies: Appendectomy, CABG, Carotid Endarterectomy, Cholecystectomy, Coronary Stent, Pacemaker, Tonsillectomy - [facility] (07/14/17) ARTHROCENTESIS (06/24/14) DIALYSIS ARTERIOVENOSTOM (06/24/14) HEMODIALYSIS (06/24/14) VENOUS CATHETERIZATION FOR RENAL DIALYSIS (06/24/14) Family History: States: Unknown Family Hx - Social History Hx Tobacco Use: No Hx Alcohol Use: Yes Hx Substance Use: No - Immunization History Hx Tetanus Toxoid Vaccination: No Hx Influenza Vaccination: No Hx Pneumococcal Vaccination: No Review Of Systems Constitutional: Negative for: Fever, Chills Gastrointestinal: Positive for: Nausea, Vomiting, Abdominal Pain (epigastric and right upper quadrant ), Diarrhea Physical Exam - Physical Exam Appears: Non-toxic, No Acute Distress Skin: Normal Color, Warm, Dry Head: Atraumatic, Normacephalic Eye(s): bilateral: Normal Inspection Oral Mucosa: Moist Neck: Supple Chest: Symmetrical, No Deformity, No Tenderness Cardiovascular: Rhythm Regular, No Murmur Respiratory: Normal Breath Sounds, No Rales, No Rhonchi, No Wheezing Gastrointestinal/Abdominal: Soft, Tenderness (mild, to right upper quadrant ), No Guarding, No Rebound Extremity: Normal ROM, Capillary Refill (less than 2 seconds ) Neurological/Psych: Oriented x3, Normal Speech, Normal Cognition ED Course And Treatment - Laboratory Results Result Diagrams: 01/18/18 06:16 01/18/18 06:16 ECG: Interpreted By Me, Viewed By Me ECG Rhythm: Sinus Rhythm Interpretation Of ECG: Normal Sinus Rhythm at rate 91 bpm with QTc of 519. Rate From EC O2 Sat by Pulse Oximetry: 98 (on RA) Pulse Ox Interpretation: Normal Progress Note: Bloodwork, Urinalysis, US Abdomen, CXR, EKG ordred and reviewed. Morphine IVP and Zofran IVP administered. Progress - Data Reviewed Data Reviewed: Lab, Diagnostic imaging, EKG, Old records Disposition - Disposition Disposition Time: 19:00 Condition: STABLE Forms: [facility] (Gambian) - POA Present On Arrival: None - Clinical Impression Clinical Impression: ESRD (end stage renal disease) on dialysis, Abdominal pain, Diarrhea, Vomiting - Scribe Statement The provider has reviewed the documentation as recorded by the Scribe (Sneha Yo) Provider Attestation: All medical record entries made by the Scribe were at my direction and personally dictated by me. I have reviewed the chart and agree that the record accurately reflects my personal performance of the history, physical exam, medical decision making, and the department course for this patient. I have also personally directed, reviewed, and agree with the discharge instructions and disposition. Physician Patient Turnover Patient Signed Over To: Cortez Blanca Handoff Comments: FU US, LABS DISPO
[2018-01-18] MEDS ORDERED: Morphine 4 MG/ML VIAL ONE (06:32)
[2018-01-18 06:43] LABS: ALB/GLOB RATIO 1.2 (1.0-2.1); ALBUMIN 3.9 g/dL (3.5-5.0); CALCIUM 8.7 mg/dl (8.6-10.4)
[2018-01-18 06:46] LABS: URINE BILIRUBIN NEGATIVE (NEGATIVE); URINE CLARITY Clear (Clear); URINE COLOR Colorless (YELLOW); URINE GLUCOSE (UA) 2+ mg/dL (Normal); URINE LEUKOCYTE ESTERASE NEG Leu/uL (Negative); URINE PROTEIN 2+ mg/dL (NEGATIVE); URINE UROBILINOGEN NORMAL mg/dL (0.2-1.0)
[2018-01-18 06:54] LABS: TROPONIN I 0.057 ng/mL (0.00-0.120)
[2018-01-18 06:55] LABS: URINE BLOOD NEGATIVE (NEGATIVE)
--- NOTE | 2018-01-18 10:09 | US ---
HISTORY: Abdominal pain COMPARISON: Comparison made with CT scan of the abdomen and pelvis dated 07/11/2017. TECHNIQUE: Sonographic evaluation of the right upper quadrant of the abdomen. FINDINGS: LIVER: Measures 15 point cm in length. Normal echogenicity of the liver parenchyma. No mass seen on images presented. No intrahepatic bile duct dilatation. GALLBLADDER: Cholelithiasis. . Mild gallbladder wall thickening -edema ; rule out cholecystitis. . Tiny amount of free fluid adjacent to the gallbladder or sonographic Kahn sign COMMON BILE DUCT: Measures 5.4 mm. No stones. No dilatation. PANCREAS: Pancreas is not visualized due to body habitus and bowel gas RIGHT KIDNEY: Measures 6.8 x 3.8 x 3.6 cm in length. Normal echogenicity. No calculus, mass, or hydronephrosis. . There are least 2 midpole cysts of the largest measuring 1.73 and the next measuring 0.95 cm. The the the AORTA: No aneurysmal dilatation. IVC: Unremarkable. OTHER FINDINGS: None . IMPRESSION: Cholelithiasis with mild gallbladder wall thickening- edema with a tiny amount of free fluid adjacent to the gallbladder wall. . Rule out cholecystitis. Pancreas is not visualized. There are least 2 right renal cyst present. .
[2018-01-18] MEDS ORDERED: oxyCODONE 5 mg Immediate Release Tab PO PRN (11:38)
[2018-01-18] MEDS ORDERED: Piperacillin/Tazobact 3.375 GM in Sodium Chloride 100 ML IVPB SCH (11:45)
--- NOTE | 2018-01-18 11:45 | RAD ---
PROCEDURE: CHEST RADIOGRAPH, 1 VIEW HISTORY: chest pain COMPARISON: Comparison chest dated 08/10/2015 FINDINGS: Poor inspiration with low lung volumes, crowded bronchovascular markings and mild bibasilar atelectasis with more confluent opacity right lower lobe that could represent infiltrate. Central pulmonary vasculature is also mildly congested which may in part be due to poor inspiration however the possibility of mild chronic compensated pulmonary edema/CHF to be excluded with clinical correlation. LUNGS: Poor inspiration with low lung volumes, crowded bronchovascular markings and mild bibasilar atelectasis. Central pulmonary vasculature is also mildly congested which may in part be due to poor inspiration however the possibility of mild chronic compensated pulmonary edema/CHF to be excluded with clinical correlation. PLEURA: No pneumothorax or pleural fluid seen. CARDIOVASCULAR: Heart is there is mildly enlarged. Aorta ectatic and uncoiled. OSSEOUS STRUCTURES: Again noted is what appears represent old the fracture dislocation left humeral head with respect to the glenoid VISUALIZED UPPER ABDOMEN: Normal. OTHER FINDINGS: None. IMPRESSION: Poor inspiration with low lung volumes, crowded bronchovascular markings and mild bibasilar atelectasis with more confluent opacity right lower lobe that could represent infiltrate. Central pulmonary vasculature is also mildly congested which may in part be due to poor inspiration however the possibility of mild chronic compensated pulmonary edema/CHF to be excluded with clinical correlation.
--- NOTE | 2018-01-18 11:47 | CP.PCM.CON ---
<Bia Grewal - Last Filed: 01/18/18 12:05> History of Present Illness - History of Present Illness History of Present Illness: General Surgery consult note for Dr. Simon Consulted for: RUQ pain, vomiting, diarrhea, possible cholecystitis Patient is a 67M with ESRD and hypothyroidism who presented to the ED for 1 day of nausea, vomiting, diarrhea for one day. Patient his pain is both in the lower abdomen and the right upper quadrant. Pain in the lower abdomen was associated with non-bloody diarrhea yesterday but he has not diarrhea today and his lower abdominal pain is improved. He has persistent non-bloody vomiting yesterday and this AM per the patient, but no vomiting in the ER. Pain in his RUQ has improved with the pain medication. Patient states he has been having chest pain yesterday and today and feeling fatigued and didn't want to eat for 4 -5 days, denies any fevers, chills, dysuria or hematuria, SOB or any other symptoms. Patient has presented with similar symptoms in 06/2017 with cholelithiaisis and some pericholecystic fluid on CT scan of the abdomen but the symptoms were attributed to severe electrolyte abnormalities at the time. Patient has and ultrasound which shows gallbladder wall thickening, pericholecystic fluid, and gallstones. PMH: ESRD on HD, HTN, hypothryoidism, HLD PSH: R AVF all: NKDA Social: denies smoking, admits social ETOH, denies drugs Review of Systems - Review of Systems All systems: reviewed and no additional remarkable complaints except (as per HPI ) Past Patient History - Infectious Disease Hx of Infectious Diseases: None - Past Medical History & Family History Past Medical History?: Yes Past Family History: Reviewed and not pertinent - Past Social History Smoking Status: Never Smoked Alcohol: Occasional Drugs: Denies - CARDIAC Hx Atrial Fibrillation: No Hx Cardia Arrhythmia: No Hx Congestive Heart Failure: No Hx Hypercholesterolemia: No Hx Hypertension: Yes Hx Mitral Valve Prolapse: No Hx Pacemaker: No Hx Peripheral Edema: Yes (left arm and hand edema) - PULMONARY Hx Respiratory Disorders: No - NEUROLOGICAL Hx Alzheimer's Disease: No Hx Dementia: No Hx Migraine: No Hx Multiple Sclerosis: No Hx Parkinson's Disease: No Hx Seizures: No Hx Transient Ischemic Attacks (TIA): No - HEENT Hx HEENT Problems: No Hx Blind: No Hx Cataracts: No Hx Deafness: No Hx Difficulty Chewing: No Hx Epistaxis: No Hx Glaucoma: No Hx Macular Degeneration: No - RENAL Hx Chronic Kidney Disease: Yes Hx Kidney Stones: No - ENDOCRINE/METABOLIC Hx Hyperthyroidism: No Hx Hypothyroidism: Yes - HEMATOLOGICAL/ONCOLOGICAL Hx Anemia: No Hx Human Immunodeficiency Virus (HIV): No Hx Sickle Cell Disease: No - INTEGUMENTARY Hx Basil Cell: No Hx Wyatt: No Hx Cellulitis: No Hx Eczema: No Hx Melanoma: No Hx Psoriasis: No Hx Squamous Cell: No - MUSCULOSKELETAL/RHEUMATOLOGICAL Hx Arthritis: Yes Hx Fractures: No Hx Osteoporosis: No Hx Rheumatoid Arthritis: No - GASTROINTESTINAL Hx Crohn's Disease: No Hx Diverticulitis: No Hx Gall Bladder Disease: No Hx Gastritis: No - GENITOURINARY/GYNECOLOGICAL Hx Sexually Transmitted Disorders: No - PSYCHIATRIC Hx Anxiety: No Hx Bipolar Disorder: No Hx Depression: No Hx Paranoia: No Hx Post Traumatic Stress Disorder: No Hx Schizophrenia: No Hx Substance Use: No - SURGICAL HISTORY Hx Appendectomy: No Hx Carotid Endarterectomy: No Hx Cholecystectomy: No Hx Coronary Artery Bypass Graft: No Hx Coronary Stent: No Hx Tonsillectomy: No - ANESTHESIA Hx Anesthesia: No Hx Anesthesia Reactions: No Meds Allergies/Adverse Reactions: Allergies Allergy/AdvReac Type Severity Reaction Status Date / Time No Known Allergies Allergy Verified 01/18/18 06:02 - Medications Medications: Current Medications Piperacillin Sod/Tazobactam (Sod 3.375 gm/ Sodium Chloride) 100 mls @ 200 mls/ hr IVPB Q6H MANUEL PRN Reason: Protocol Oxycodone HCl (Oxycodone Immediate Release Tab) 5 mg PO Q6 PRN PRN Reason: Pain, moderate (4-7) Physical Exam - Constitutional Appears: Well, Non-toxic, No Acute Distress - Head Exam Head Exam: ATRAUMATIC, NORMOCEPHALIC - Eye Exam Eye Exam: Normal appearance - ENT Exam ENT Exam: Mucous Membranes Moist, Normal Oropharynx - Respiratory Exam Respiratory Exam: NORMAL BREATHING PATTERN. absent: Accessory Muscle Use, Respiratory Distress - Cardiovascular Exam Cardiovascular Exam: RRR - GI/Abdominal Exam GI & Abdominal Exam: Soft, Tenderness (mild RUQ/RLQ tenderness to palpation). absent: Distended Additional comments: negative gonzalez's, negative rovsings, no rebound tenderness - Extremities Exam Extremities exam: Positive for: pedal pulses present. Negative for: calf tenderness, pedal edema - Neurological Exam Neurological exam: Alert, Oriented x3 - Psychiatric Exam Psychiatric exam: Normal Affect, Normal Mood - Skin Skin Exam: Dry, Intact, Normal Color, Warm Results - Vital Signs Recent Vital Signs: Last Vital Signs Temp 97.7 F 01/18/18 05:57 Pulse 78 01/18/18 11:30 Resp 16 01/18/18 11:30 BP 169/88 H 01/18/18 11:30 Pulse Ox 98 01/18/18 11:30 - Labs Result Diagrams: 01/18/18 06:16 01/18/18 06:16 Labs: Laboratory Results - last 24 hr 01/18/18 01/18/18 01/18/18 06:16 06:16 06:38 WBC 6.4 RBC 3.23 L Hgb 9.6 L Hct 28.3 L MCV 87.4 MCH 29.7 MCHC 34.0 RDW 14.2 Plt Count 228 MPV 7.4 Neut % (Auto) 70.5 Lymph % (Auto) 17.3 L [place] % (Auto) 6.6 Eos % (Auto) 4.7 H Baso % (Auto) 0.9 Neut # (Auto) 4.5 Lymph # (Auto) 1.1 [place] # (Auto) 0.4 Eos # (Auto) 0.3 Baso # (Auto) 0.1 Sodium 130 L Potassium 4.6 Chloride 87 L Carbon Dioxide 26 Anion Gap 22 H BUN 34 H Creatinine 6.0 H Est GFR ( Amer) 11 Est GFR (Non-Af Amer) 9 Random Glucose 89 Calcium 8.7 Total Bilirubin 0.8 AST 24 ALT 17 L D Alkaline Phosphatase 47 Troponin I 0.0570 Total Protein 7.0 Albumin 3.9 Globulin 3.1 Albumin/Globulin Ratio 1.2 Urine Color Colorless Urine Clarity Clear Urine pH 9.0 Ur Specific [place] 1.004 Urine Protein 2+ H Urine Glucose (UA) 2+ H Urine Ketones Negative Urine Blood Negative Urine Nitrate Negative Urine Bilirubin Negative Urine Urobilinogen Normal Ur Leukocyte Esterase Neg Urine WBC (Auto) 3 Urine RBC (Auto) < 1 Assessment & Plan - Assessment and Plan (Free Text) Assessment: 67M with abdominal pain, vomiting, diarrhea--acute cholecystitis vs gastroenteritis US: gallstones, gallbladder wall thickening, pericholecystic fluid, CBD 5.4 mm WBC and LFT's wnl Plan: HIDA scan to evaluate for acute cholecystitis CT scan ordered by primary--will follow up NPO until CT scan results return repeat CBC/CMP, magnesium, phosphorus labs tomorrow AM replete electrolytes and dialysis per primary PRN pain and nausea medication Discussed with Dr. Simon who agreed with above Bia Grewal, pgy2 <Justin Simon - Last Filed: 01/20/18 19:50> Results - Vital Signs Recent Vital Signs: Last Vital Signs Temp 97.6 F 01/19/18 17:20 Pulse 85 01/19/18 18:22 Resp 16 01/19/18 18:22 BP 162/93 H 01/19/18 18:22 Pulse Ox 97 01/19/18 17:20 - Labs Result Diagrams: 01/19/18 06:27 01/19/18 06:27 Labs: Laboratory Results - last 24 hr 01/19/18 12:18 PTH Intact Whole Molec 119 H Attending/Attestation - Attestation I have personally seen and examined this patient.: Yes I have fully participated in the care of the patient.: Yes I have reviewed all pertinent clinical information: Yes Notes (Text): Pt was seen and examined at bedside Agree with above note and assessment Pt with abdominal pain and Diarrhea for 4 day Abdominal tenderness all over abdomen Labs and radiology reviewed Ass: Colitis, Gallstones, Less likely Cholecystitis Plan : HIDA scan C.w IV antibiotics c.w home meds GI consult Plan d.w pt in detail Risk and benefit explained in detail.
[2018-01-18] MEDS: Piperacill/Tazo 2.25gm in Dex 2.25 GM/50 ML BAG IVPB SCH ×2 (12:05→19:02)
[2018-01-18] MEDS ORDERED: Pantoprazole 40 mg EC Tab PO SCH (12:15)
--- NOTE | 2018-01-18 12:19 | CP.PCM.HP ---
<Aliza Blas - Last Filed: 01/18/18 12:30> History of Present Illness - History of Present Illness History of Present Illness: H&P: 67 year old female with past medical history of ESRD on HD T//, HTn, HLD , CHF with EF of 36%, hypothyroidism presents ot hospital for RUQ abdominal pain that began last night. Patient is associated with 2 episodes of nausea/ vomiting and diarrhea. Vomiting occurred last night, was non-bloody and non- bilious. Diarrhea occurred last night, was non-bloody. Patient denies having any F/C. Patient presented to [facility] about 6 months ago for similar symptoms. At that time, patient was diagnosed with cholelithiasis. He was medically managed, his symptoms improved and he was discharged. Today, patient received pain medication in ED. He is resting comfortably and complains only of mild RUQ abd pain. Denies having any CP, SOB, N/V/D/C, F/C. PMH: ESRD on HD T//, hypothyroidism, hyperlipidemia, HTN PSH: left AV fistula FH: sister who recently from Renal failure SH: Denies Smoking, eoth use, illicit drug use, unemployed lives with and children Allergies: NKDA Nephrology: Darren Present on Admission - Present on Admission Any Indicators Present on Admission: No Review of Systems - Constitutional Constitutional: absent: Chills, Fever - EENT Eyes: absent: Blurred Vision, Change in Vision Nose/Mouth/Throat: absent: Nasal Congestion, Nasal Discharge, Dysphagia, Sore Throat - Cardiovascular Cardiovascular: absent: Chest Pain, Dyspnea, Edema, Leg Edema, Pedal Edema - Respiratory Respiratory: absent: Cough, Dyspnea, Wheezing, Chest Congestion - Gastrointestinal Gastrointestinal: Abdominal Pain, Diarrhea, Nausea, Vomiting - Genitourinary Genitourinary: absent: Dysuria, Urinary Frequency - Musculoskeletal Musculoskeletal: absent: Back Pain, Muscle Cramps - Integumentary Integumentary: absent: Lesions, Rash - Neurological Neurological: absent: Tingling, Weakness - Psychiatric Psychiatric: absent: Anxiety, Depression - Endocrine Endocrine: absent: Palpitations Past Patient History - Infectious Disease Hx of Infectious Diseases: None - Past Medical History & Family History Past Medical History?: Yes Past Family History: Reviewed and not pertinent - Past Social History Smoking Status: Never Smoked Alcohol: Occasional Drugs: Denies - CARDIAC Hx Atrial Fibrillation: No Hx Cardia Arrhythmia: No Hx Congestive Heart Failure: No Hx Hypercholesterolemia: No Hx Hypertension: Yes Hx Mitral Valve Prolapse: No Hx Pacemaker: No Hx Peripheral Edema: Yes (left arm and hand edema) - PULMONARY Hx Respiratory Disorders: No - NEUROLOGICAL Hx Alzheimer's Disease: No Hx Dementia: No Hx Migraine: No Hx Multiple Sclerosis: No Hx Parkinson's Disease: No Hx Seizures: No Hx Transient Ischemic Attacks (TIA): No - HEENT Hx HEENT Problems: No Hx Blind: No Hx Cataracts: No Hx Deafness: No Hx Difficulty Chewing: No Hx Epistaxis: No Hx Glaucoma: No Hx Macular Degeneration: No - RENAL Hx Chronic Kidney Disease: Yes Hx Kidney Stones: No - ENDOCRINE/METABOLIC Hx Hyperthyroidism: No Hx Hypothyroidism: Yes - HEMATOLOGICAL/ONCOLOGICAL Hx Anemia: No Hx Human Immunodeficiency Virus (HIV): No Hx Sickle Cell Disease: No - INTEGUMENTARY Hx Basil Cell: No Hx Wyatt: No Hx Cellulitis: No Hx Eczema: No Hx Melanoma: No Hx Psoriasis: No Hx Squamous Cell: No - MUSCULOSKELETAL/RHEUMATOLOGICAL Hx Arthritis: Yes Hx Fractures: No Hx Osteoporosis: No Hx Rheumatoid Arthritis: No - GASTROINTESTINAL Hx Crohn's Disease: No Hx Diverticulitis: No Hx Gall Bladder Disease: No Hx Gastritis: No - GENITOURINARY/GYNECOLOGICAL Hx Sexually Transmitted Disorders: No - PSYCHIATRIC Hx Anxiety: No Hx Bipolar Disorder: No Hx Depression: No Hx Paranoia: No Hx Post Traumatic Stress Disorder: No Hx Schizophrenia: No Hx Substance Use: No - SURGICAL HISTORY Hx Appendectomy: No Hx Carotid Endarterectomy: No Hx Cholecystectomy: No Hx Coronary Artery Bypass Graft: No Hx Coronary Stent: No Hx Tonsillectomy: No - ANESTHESIA Hx Anesthesia: No Hx Anesthesia Reactions: No Meds Allergies/Adverse Reactions: Allergies Allergy/AdvReac Type Severity Reaction Status Date / Time No Known Allergies Allergy Verified 01/18/18 06:02 Physical Exam - Constitutional Appears: Non-toxic, No Acute Distress - Head Exam Head Exam: ATRAUMATIC - ENT Exam ENT Exam: Mucous Membranes Moist - Respiratory Exam Respiratory Exam: Clear to Auscultation Bilateral. absent: Rales, Rhonchi, Wheezes - Cardiovascular Exam Cardiovascular Exam: REGULAR RHYTHM, +S1, +S2. absent: Diastolic murmur, Gallop , Rubs, Systolic Murmur - GI/Abdominal Exam GI & Abdominal Exam: Normal Bowel Sounds, Soft. absent: Distended, Firm, Guarding, Rigid, Tenderness Additional comments: negative McBurnery's point. Negative Kahn's sign - Extremities Exam Extremities exam: Negative for: pedal edema, tenderness - Neurological Exam Neurological exam: Alert, Oriented x3 - Psychiatric Exam Psychiatric exam: Normal Affect, Normal Mood - Skin Skin Exam: Dry, Intact, Normal Color, Warm Results - Vital Signs Recent Vital Signs: Last Vital Signs Temp 97.7 F 01/18/18 05:57 Pulse 78 01/18/18 11:30 Resp 16 01/18/18 11:30 BP 169/88 H 01/18/18 11:30 Pulse Ox 98 01/18/18 11:30 - Labs Result Diagrams: 01/18/18 06:16 01/18/18 06:16 Labs: Laboratory Results - last 24 hr 01/18/18 01/18/18 01/18/18 06:16 06:16 06:38 WBC 6.4 RBC 3.23 L Hgb 9.6 L Hct 28.3 L MCV 87.4 MCH 29.7 MCHC 34.0 RDW 14.2 Plt Count 228 MPV 7.4 Neut % (Auto) 70.5 Lymph % (Auto) 17.3 L [place] % (Auto) 6.6 Eos % (Auto) 4.7 H Baso % (Auto) 0.9 Neut # (Auto) 4.5 Lymph # (Auto) 1.1 [place] # (Auto) 0.4 Eos # (Auto) 0.3 Baso # (Auto) 0.1 Sodium 130 L Potassium 4.6 Chloride 87 L Carbon Dioxide 26 Anion Gap 22 H BUN 34 H Creatinine 6.0 H Est GFR ( Amer) 11 Est GFR (Non-Af Amer) 9 Random Glucose 89 Calcium 8.7 Total Bilirubin 0.8 AST 24 ALT 17 L D Alkaline Phosphatase 47 Troponin I 0.0570 Total Protein 7.0 Albumin 3.9 Globulin 3.1 Albumin/Globulin Ratio 1.2 Urine Color Colorless Urine Clarity Clear Urine pH 9.0 Ur Specific [place] 1.004 Urine Protein 2+ H Urine Glucose (UA) 2+ H Urine Ketones Negative Urine Blood Negative Urine Nitrate Negative Urine Bilirubin Negative Urine Urobilinogen Normal Ur Leukocyte Esterase Neg Urine WBC (Auto) 3 Urine RBC (Auto) < 1 Assessment & Plan - Assessment and Plan (Free Text) Assessment: 67 year old male with past medical history of ESRD T//, HTN, HLD, hypothyroidism is admitted for possible cholecystitis. Abd US done on admission showed mild gallbladder wall thickening and edema. LFTs on admission were normal. Patient was aferbile on admission and WBC count was normal. Right upper quadrant pain -2/2 cholecystitis vs. gastroenteritis - Surgery, Dr. Simon consulted. residential leasing agent notified - LFTs on admission WNL. Will check lipase - Will check coags, EKG and CXR for possible pre-op clearance - Pt made NPO overnight for possible procedure tomorrow - Started on Zosyn 2.25 g q8 renally dosed - Zofran prn ESRD - on HD T/ - [facility] [place], Dr. Banks consulted - Continue home med: Phoslo HTN - Continue home medication: Norvasc 5 mg po qd - Continue aspirin 81 mg po qd HLD - Will continue statin therapy with Crestor - Will check lipid panel - Will check HgbA1c Hypothyroidism - Continue home synthroid 125 mcg qd Prophylaxis - Protonix - heparin - SCDs Case discussed with attending, Dr. Chappell - Date & Time Date: 01/18/18 Time: 12:37 <Johnny Chappell - Last Filed: 01/18/18 15:21> Results - Vital Signs Recent Vital Signs: Last Vital Signs Temp 97.7 F 01/18/18 13:27 Pulse 77 01/18/18 13:27 Resp 20 01/18/18 13:27 BP 154/88 H 01/18/18 13:27 Pulse Ox 97 01/18/18 13:27 - Labs Result Diagrams: 01/18/18 06:16 01/18/18 06:16 Labs: Laboratory Results - last 24 hr 01/18/18 01/18/18 01/18/18 06:16 06:16 06:38 WBC 6.4 RBC 3.23 L Hgb 9.6 L Hct 28.3 L MCV 87.4 MCH 29.7 MCHC 34.0 RDW 14.2 Plt Count 228 MPV 7.4 Neut % (Auto) 70.5 Lymph % (Auto) 17.3 L [place] % (Auto) 6.6 Eos % (Auto) 4.7 H Baso % (Auto) 0.9 Neut # (Auto) 4.5 Lymph # (Auto) 1.1 [place] # (Auto) 0.4 Eos # (Auto) 0.3 Baso # (Auto) 0.1 Sodium 130 L Potassium 4.6 Chloride 87 L Carbon Dioxide 26 Anion Gap 22 H BUN 34 H Creatinine 6.0 H Est GFR ( Amer) 11 Est GFR (Non-Af Amer) 9 Random Glucose 89 Calcium 8.7 Total Bilirubin 0.8 AST 24 ALT 17 L D Alkaline Phosphatase 47 Troponin I 0.0570 Total Protein 7.0 Albumin 3.9 Globulin 3.1 Albumin/Globulin Ratio 1.2 Lipase Urine Color Colorless Urine Clarity Clear Urine pH 9.0 Ur Specific [place] 1.004 Urine Protein 2+ H Urine Glucose (UA) 2+ H Urine Ketones Negative Urine Blood Negative Urine Nitrate Negative Urine Bilirubin Negative Urine Urobilinogen Normal Ur Leukocyte Esterase Neg Urine WBC (Auto) 3 Urine RBC (Auto) < 1 01/18/18 12:57 WBC RBC Hgb Hct MCV MCH MCHC RDW Plt Count MPV Neut % (Auto) Lymph % (Auto) [place] % (Auto) Eos % (Auto) Baso % (Auto) Neut # (Auto) Lymph # (Auto) [place] # (Auto) Eos # (Auto) Baso # (Auto) Sodium Potassium Chloride Carbon Dioxide Anion Gap BUN Creatinine Est GFR ( Amer) Est GFR (Non-Af Amer) Random Glucose Calcium Total Bilirubin AST ALT Alkaline Phosphatase Troponin I Total Protein Albumin Globulin Albumin/Globulin Ratio Lipase 46 Urine Color Urine Clarity Urine pH Ur Specific [place] Urine Protein Urine Glucose (UA) Urine Ketones Urine Blood Urine Nitrate Urine Bilirubin Urine Urobilinogen Ur Leukocyte Esterase Urine WBC (Auto) Urine RBC (Auto) Attending/Attestation - Attestation I have personally seen and examined this patient.: Yes I have fully participated in the care of the patient.: Yes I have reviewed all pertinent clinical information: Yes Notes (Text): 01/18/18 15:13 Medical attending: Patient was seen and examined by me. Agree with the above note by the resident The patient was seen while still down in the ER. He was no having any acute discomfort or abdominal pain at that time. U/S was done, will also check a CT without contrast for additionl information. There is a HIDA ordered by surgery For now also start Zosyn IV. He does not report fever as well. He has ESRD and is on HD as well Johnny Chappell
[2018-01-18] MEDS ORDERED: Piperacillin/Tazobact 2.25 GM in Sodium Chloride 100 ML IVPB SCH (12:45)
--- NOTE | 2018-01-18 12:45 | RAD ---
PROCEDURE: CHEST RADIOGRAPH, 1 VIEW HISTORY: pre-op COMPARISON: None available. FINDINGS: LUNGS: Poor inspiration with low lung volumes, crowded bronchovascular markings and mild bibasilar atelectasis with persistent more confluent opacity medial right lung base possibly representing infiltrate. . There appears to be new area of presumed subsegmental atelectasis in the right suprahilar region PLEURA: No pneumothorax or pleural fluid seen. CARDIOVASCULAR: Normal. OSSEOUS STRUCTURES: No significant abnormalities. VISUALIZED UPPER ABDOMEN: Normal. OTHER FINDINGS: None. IMPRESSION: Poor inspiration with low lung volumes, crowded bronchovascular markings and mild bibasilar atelectasis with persistent more confluent opacity medial right lung base possibly representing infiltrate. Suspect new area of subsegmental atelectasis in the right suprahilar region.
[2018-01-18] MEDS ORDERED: Pantoprazole 40 mg EC Tab PO ONE (13:05)
--- NOTE | 2018-01-18 15:38 | CT ---
PROCEDURE: CT scan abdomen pelvis dated 01/18/2018 HISTORY: Abdominal pain ; rule out cholecystitis. COMPARISON: Comparison made with concurrent abdominal ultrasound and CT scan abdomen pelvis 07/11/2017. Comparison also made with CT scan chest TECHNIQUE: Contiguous axial images of the abdomen and pelvis performed without oral and intravenous contrast material. Additional 2 dimensional sagittal and coronal reformats generated. Radiation dose: Total exam DLP =338.66 mGy-cm. This CT exam was performed using one or more of the following dose reduction techniques: Automated exposure control, adjustment of the mA and/or kV according to patient size, and/or use of iterative reconstruction technique. FINDINGS: LOWER THORAX: Small to medium size right-sided effusion with the tiny left effusion. Bibasilar atelectasis. Heart appears enlarged. No significant pericardial effusion. There is a tiny hiatal hernia. LIVER: The liver exhibits normal size measuring nearly 16 cm in CC dimension. No obvious hepatic mass or collection. GALLBLADDER AND BILE DUCTS: Intraluminal gallbladder calculus again noted. . Mild pericholecystic infiltration changes and what appears to represent a tiny amount of pericholecystic fluid. Findings may represent acute cholecystitis PANCREAS: The the pancreas appears slightly atrophic and fatty replaced. No obvious pancreatic masses or collections SPLEEN: Spleen exhibits normal size and attenuation pattern without mass collection or calcification. ADRENALS: No adrenal lesions. KIDNEYS AND URETERS: The kidneys exhibit this fairly significant atrophy with thinning of the cortices bilaterally. A bilateral parapelvic cysts. Additionally, there are at least 3 partially exophytic cortical cyst left kidney. No evidence of obstructing nephrolithiasis. BLADDER: Urinary bladder appears incompletely distended which in part accounts for thick-walled appearance. Muscular hypertrophy may contribute. Note that the possibility of other intrinsic wall lesion not excluded. Prostate gland is enlarged REPRODUCTIVE: Prostate gland appears enlarged measuring approximately 4.6 cm in transverse dimension. APPENDIX: Normal-appearing appendix. BOWEL: Evaluation of the bowel is limited due to the lack of oral contrast material. Stomach is distended with food debris liquid and air. Visualized loops of small bowel exhibit normal contour and caliber. No evidence of acute mechanical small bowel obstruction. The no evidence of mural wall thickening of the colon. PERITONEUM: As above. No gross free intraperitoneal air. . Small fat containing umbilical hernia. LYMPH NODES: Unremarkable. No enlarged lymph nodes. VASCULATURE: Unremarkable. No aortic aneurysm. BONES: Minor multilevel degenerative spondylosis of the lower thoracic and lumbar spine. There are no acute compression fractures nor retropulsed fragments. OTHER FINDINGS: None. IMPRESSION: Cholelithiasis with apparent gallbladder wall thickening and mild pericholecystic infiltration and fluid. Findings most likely represent acute cholecystitis. Bilateral effusions right larger than left with mild bibasilar atelectasis Kidneys are atrophic with cortical thinning. Bilateral parapelvic renal cyst with multiple of cortical cyst left kidney. Mild urinary bladder wall thickening likely due to incomplete distention and muscular hypertrophy. The other intrinsic from lateral wall abnormalities cannot be excluded.
[2018-01-19] MEDS: Piperacill/Tazo 2.25gm in Dex 2.25 GM/50 ML BAG IVPB SCH (04:24)
[2018-01-19] MEDS ORDERED: Dextrose 50% SYRINGE Inj (50 ml) IV STA (06:13)
[2018-01-19] MEDS ORDERED: Levothyroxine 125 MCG TAB PO SCH (06:30)
[2018-01-19 06:38] LABS: BASO # 0.1 K/uL (0.0-0.2); BASO % 1.3 % (0.0-2.0); EOS # 0.3 K/uL (0.0-0.7); EOS % 6.2 % (0.0-4.0); HEMOGLOBIN 9.6 g/dL (12.0-18.0); LYMPH # 1.2 K/uL (1.0-4.3); LYMPH % 25.4 % (20.0-40.0); MEAN CELL VOLUME 86.5 fL (80.0-94.0); MEAN CORPUSCULAR HEMOGLOBIN 29.4 pg (27.0-31.0); MEAN PLATELET VOLUME 7.4 fL (7.2-11.7); MONO # 0.3 K/uL (0.0-0.8); MONO % 6.8 % (0.0-10.0); NEUT # 2.9 K/uL (1.8-7.0); NEUT % 60.3 % (50.0-75.0); RBC 3.26 Mil/uL (4.40-5.90); RED CELL DISTRIBUTION WIDTH 14.4 % (11.5-14.5); WHITE BLOOD COUNT 4.8 K/uL (4.8-10.8)
[2018-01-19 06:57] LABS: INR 1.2; PROTHROMBIN TIME 13.2 SECONDS (9.7-12.2)
[2018-01-19 06:59] LABS: ALB/GLOB RATIO 1.2 (1.0-2.1); ALBUMIN 3.5 g/dL (3.5-5.0); CALCIUM 8.4 mg/dl (8.6-10.4)
--- NOTE | 2018-01-19 07:58 | CP.PCM.PN ---
<Teagan Vazquez - Last Filed: 01/19/18 13:00> Subjective - Date & Time of Evaluation Date of Evaluation: 01/19/18 Time of Evaluation: 07:00 - Subjective Subjective: Surgery: Dr. Simon Pt seen and examined. No acute overnight events. States he feels better this morning and pain has resolved. Denies N/V, F/C. Objective - Vital Signs/Intake and Output Vital Signs (last 24 hours): Temp Pulse Resp BP Pulse Ox 97.7 F 80 20 149/83 96 01/18/18 23:15 01/18/18 23:15 01/18/18 23:15 01/19/18 04:10 01/18/18 23:15 Intake and Output: 01/19/18 01/19/18 06:59 18:59 Intake Total 50 Balance 50 - Medications Medications: Current Medications Amlodipine Besylate (Norvasc) 5 mg PO DAILY [facility] Last Admin: 01/18/18 13:05 Dose: 5 mg Calcium Acetate (Phoslo) 667 mg PO TID [facility] Last Admin: 01/18/18 21:24 Dose: Not Given Heparin Sodium (Porcine) (Heparin) 5,000 units SC Q12 [facility] Last Admin: 01/18/18 21:25 Dose: 5,000 units Piperacillin Sod/Tazobactam Sod (Zosyn 2.25 Gm Iv Premix) 2.25 gm in 50 mls @ 100 mls/hr IVPB Q8H [facility] PRN Reason: Protocol Last Admin: 01/19/18 04:24 Dose: 100 mls/hr Levothyroxine Sodium (Synthroid) 125 mcg PO DAILY@0630 [facility] Last Admin: 01/19/18 06:30 Dose: 125 mcg Ondansetron HCl (Zofran Inj) 4 mg IVP Q6H PRN PRN Reason: Nausea/Vomiting Oxycodone HCl (Oxycodone Immediate Release Tab) 5 mg PO Q6 PRN PRN Reason: Pain, moderate (4-7) Pantoprazole Sodium (Protonix Ec Tab) 40 mg PO DAILY [facility] Last Admin: 01/18/18 13:05 Dose: 40 mg - Labs Labs: 01/19/18 06:27 01/19/18 06:27 PT 13.2 SECONDS (9.7-12.2) H 01/19/18 06:27 INR 1.2 01/19/18 06:27 APTT 30 SECONDS (21-34) 01/19/18 06:27 - Constitutional Appears: Well, No Acute Distress - Head Exam Head Exam: ATRAUMATIC, NORMOCEPHALIC - Eye Exam Eye Exam: Normal appearance - ENT Exam ENT Exam: Mucous Membranes Moist - Respiratory Exam Respiratory Exam: NORMAL BREATHING PATTERN - Cardiovascular Exam Cardiovascular Exam: RRR - GI/Abdominal Exam GI & Abdominal Exam: Soft. absent: Distended, Tenderness - Neurological Exam Neurological Exam: Alert, Awake, Oriented x3 - Skin Skin Exam: Dry, Warm Assessment and Plan - Assessment and Plan (Free Text) Assessment: 67M with cholecystitis Plan: - HIDA negative - plan for elective cholecystectomy; f/u with Dr. Simon as outpt - advance diet as tolerated - d/w Dr. Aurora Vazquez, PGY-3 <Justin Simon - Last Filed: 01/20/18 20:02> Objective - Vital Signs/Intake and Output Vital Signs (last 24 hours): Temp Pulse Resp BP Pulse Ox 97.6 F 85 16 162/93 H 97 01/19/18 17:20 01/19/18 18:22 01/19/18 18:22 01/19/18 18:22 01/19/18 17:20 - Labs Labs: 01/19/18 06:27 01/19/18 06:27 PT 13.2 SECONDS (9.7-12.2) H 01/19/18 06:27 INR 1.2 01/19/18 06:27 APTT 30 SECONDS (21-34) 01/19/18 06:27 Attending/Attestation - Attestation I have personally seen and examined this patient.: Yes I have fully participated in the care of the patient.: Yes I have reviewed all pertinent clinical information, including history, physical exam and plan: Yes Notes (Text): Pt was seen and examined at bedside Agree with above note and assessment Pt is improved clinically Normal HIDA scan No acute general surgery intervention required f.u as out pt for Cholecystectomy Plan d.w pt in detail Risk and benefit explained in detail.
[2018-01-19] MEDS ORDERED: Ciprofloxacin 200mg/100ml D5W 100 ML IVPB SCH (10:00)
[2018-01-19] MEDS: metroNIDAZOLE IV 500 mg/100 ml 500 MG/100 ML BAG IVPB SCH ×2 (10:11→18:38)
--- NOTE | 2018-01-19 10:27 | NM ---
PROCEDURE: Nuclear Medicine Hepatobiliary Scan HISTORY: cholelithiasis, evaluate for acute cholecystitis COMPARISON: January 18, 2018. Abdominal ultrasound. Summary of findings on the comparison examination: Cholelithiasis. Mild gallbladder wall thickening. January 18, 2018. CT abdomen and pelvis TECHNIQUE: 5.1 mCi of technetium 99m Mebrofenin was administered intravenously. Planar images of the abdomen were obtained at 5 min intervals to 60 mins. Delayed images were also obtained. FINDINGS: LIVER: Timely and homogenous uptake. COMMON BILE DUCT: identified at 15 mins. GALLBLADDER: identified at 20 mins. SMALL BOWEL: Identified at 25 mins. IMPRESSION: Normal Hepatobiliary Scan. The cystic duct is patent.
--- NOTE | 2018-01-19 11:30 | CP.PCM.CON ---
History of Present Illness - History of Present Illness History of Present Illness: H&P: 67 year old female with past medical history of ESRD on HD T//S- on dialysis x 4 years, HTn, HLD, CHF with EF of 36%, hypothyroidism presents ot hospital for RUQ abdominal pain that began 2 days ago. Patient is associated with 2 episodes of nausea/vomiting and diarrhea. Vomiting occurred last night, was non-bloody and non-bilious, occurred when pt wthout BMs x 2 days. Diarrhea occurred - was non-bloody. Patient denies having any F/C. Patient presented to [facility] about 6 months ago for similar symptoms. At that time, patient was diagnosed with cholelithiasis. He was medically managed, his symptoms improved and he was discharged. Patient received pain medication in ED. He is resting comfortably and complains only of mild RUQ abd pain. Denies having any CP, SOB, N/V/D/C, F/C. PMH: ESRD on HD T//, hypothyroidism, hyperlipidemia, HTN PSH: left AV fistula FH: sister who recently from Renal failure SH: Denies Smoking, eoth use, illicit drug use, unemployed lives with and children Allergies: NKDA HIDA scan negative due for HD today Review of Systems - Constitutional Constitutional: Fatigue, Weakness - EENT Eyes: absent: As Per HPI, Blind Spots, Blurred Vision, Change in Vision, Decreased Night Vision, Diplopia, Discharge, Dry Eye, Exophthalmos, Floaters, Irritation, Itchy Eyes, Loss of Peripheral Vision, Pain, Photophobia, Requires Corrective Lenses, Sees Flashes, Spots in Vision, Tunnel Vision, Other Visual Disturbances, Loss of Vision, Other Ears: absent: As Per HPI, Decreased Hearing, Ear Discharge, Ear Pain, Tinnitus, Abnormal Hearing, Disequilibrium, Dizziness, Other Nose/Mouth/Throat: absent: As Per HPI, Epistaxis, Nasal Congestion, Nasal Discharge, Nasal Obstruction, Nasal Trauma, Nose Pain, Post Nasal Drip, Sinus Pain, Sinus Pressure, Bleeding Gums, Change in Voice, Dental Pain, Dry Mouth, Dysphagia, Halitosis, Hoarsness, Lip Swelling, Mouth Lesions, Mouth Pain, Odynophagia, Sore Throat, Throat Swelling, Tongue Swelling, Facial Pain, Neck Pain, Neck Mass, Other - Cardiovascular Cardiovascular: Dyspnea on Exertion - Respiratory Respiratory: absent: As Per HPI, Cough, Dyspnea, Hemoptysis, Dyspnea on Exertion , Wheezing, Snoring, Stridor, Pain on Inspiration, Chest Congestion, Excessive Mucous Production, Change in Mucous Color, Pain with Coughing, Other - Gastrointestinal Gastrointestinal: As Per HPI - Genitourinary Genitourinary: As Per HPI - Musculoskeletal Musculoskeletal: Muscle Cramps, Myalgias - Integumentary Integumentary: absent: As Per HPI, Acne, Alopecia, Bleeding Lesions, Change in Hair, Change in Nails, Change in Pigmentation, Changing Lesions, Dry Skin, Erythema, Furuncle, Hirsutism, Lesions, New Lesions, Non-Healing Lesions, Photosensitivity, Pruritus, Rash, Skin Pain, Skin Ulcer, Sores, Striae, Swelling , Unusual Bruising, Wounds, Jaundice, Other - Neurological Neurological: absent: As Per HPI, Abnormal Gait, Abnormal Hearing, Abnormal Movements, Abnormal Speech, Behavioral Changes, Burning Sensations, Confusion, Convulsions, Disequilibrium, Dizziness, Numbness, Focal Weakness, Frequent Falls , Headaches, Lack of Coordination, Loss of Vision, Memory Loss, Paresthesias, Radicular Pain, Restless Legs, Sensory Deficit, Syncope, Tingling, Tremor, Vertigo, Weakness, Other Visual Disturbances, Other Past Patient History - Infectious Disease Hx of Infectious Diseases: None - Past Medical History & Family History Past Medical History?: Yes Pertinent Family History: Sister with renal failure - Past Social History Smoking Status: Former Smoker Chewing Tobacco Use: No Cigar Use: No Alcohol: None Drugs: Denies Home Situation {Lives}: With Family - CARDIAC Hx Cardiac Disorders: Yes Hx Atrial Fibrillation: No Hx Cardia Arrhythmia: No Hx Congestive Heart Failure: No Hx Hypercholesterolemia: No Hx Hypertension: Yes Hx Mitral Valve Prolapse: No Hx Pacemaker: No Hx Peripheral Edema: Yes (left arm and hand edema) - PULMONARY Hx Respiratory Disorders: No - NEUROLOGICAL Hx Neurological Disorder: No Hx Alzheimer's Disease: No Hx Dementia: No Hx Migraine: No Hx Multiple Sclerosis: No Hx Parkinson's Disease: No Hx Seizures: No Hx Transient Ischemic Attacks (TIA): No - HEENT Hx HEENT Problems: No Hx Blind: No Hx Cataracts: No Hx Deafness: No Hx Difficulty Chewing: No Hx Epistaxis: No Hx Glaucoma: No Hx Macular Degeneration: No - RENAL Hx Chronic Kidney Disease: Yes Hx Dialysis: Yes Type of Dialysis Access: Hemodialysis Date of Last Dialysis Treatment: 01/16/18 Hx Kidney Stones: No - ENDOCRINE/METABOLIC Hx Endocrine Disorders: Yes Hx Hyperthyroidism: No Hx Hypothyroidism: Yes - HEMATOLOGICAL/ONCOLOGICAL Hx Blood Disorders: No Hx Anemia: No Hx Human Immunodeficiency Virus (HIV): No Hx Sickle Cell Disease: No - INTEGUMENTARY Hx Basil Cell: No Hx Wyatt: No Hx Cellulitis: No Hx Eczema: No Hx Melanoma: No Hx Psoriasis: No Hx Squamous Cell: No - MUSCULOSKELETAL/RHEUMATOLOGICAL Hx Musculoskeletal Disorders: Yes Hx Arthritis: Yes Hx Falls: No Hx Fractures: No Hx Osteoporosis: No Hx Rheumatoid Arthritis: No - GASTROINTESTINAL Hx Gastrointestinal Disorders: Yes Hx Crohn's Disease: No Hx Diarrhea: Yes Hx Diverticulitis: No Hx Gall Bladder Disease: No Hx Gastritis: No - GENITOURINARY/GYNECOLOGICAL Hx Genitourinary Disorders: No Hx Sexually Transmitted Disorders: No - PSYCHIATRIC Hx Psychophysiologic Disorder: No Hx Anxiety: No Hx Bipolar Disorder: No Hx Depression: No Hx Paranoia: No Hx Post Traumatic Stress Disorder: No Hx Schizophrenia: No Hx Substance Use: No - SURGICAL HISTORY Hx Surgeries: Yes Hx Appendectomy: No Hx Arteriovenous Shunt: Yes Hx Carotid Endarterectomy: No Hx Cholecystectomy: No Hx Coronary Artery Bypass Graft: No Hx Coronary Stent: No Hx Tonsillectomy: No - ANESTHESIA Hx Anesthesia: Yes Hx Anesthesia Reactions: Yes Hx Malignant Hyperthermia: No Meds Allergies/Adverse Reactions: Allergies Allergy/AdvReac Type Severity Reaction Status Date / Time No Known Allergies Allergy Verified 01/18/18 06:02 - Medications Medications: Current Medications Amlodipine Besylate (Norvasc) 5 mg PO DAILY [facility] Last Admin: 01/19/18 10:08 Dose: 5 mg Aspirin (Ecotrin) 81 mg PO DAILY [facility] Last Admin: 01/19/18 10:08 Dose: 81 mg Calcium Acetate (Phoslo) 667 mg PO TID [facility] Last Admin: 01/19/18 10:08 Dose: 667 mg Heparin Sodium (Porcine) (Heparin) 5,000 units SC Q12 [facility] Last Admin: 01/19/18 10:08 Dose: 5,000 units Ciprofloxacin (Cipro 200mg/100ml D5w) 100 mls @ 133 mls/hr IVPB Q12H [facility] PRN Reason: Protocol Last Admin: 01/19/18 11:07 Dose: 133 mls/hr Metronidazole (Flagyl) 500 mg in 100 mls @ 100 mls/hr IVPB Q8H [facility] PRN Reason: Protocol Last Admin: 01/19/18 10:11 Dose: 100 mls/hr Levothyroxine Sodium (Synthroid) 125 mcg PO DAILY@0630 [facility] Last Admin: 01/19/18 06:30 Dose: 125 mcg Oxycodone HCl (Oxycodone Immediate Release Tab) 5 mg PO Q6 PRN PRN Reason: Pain, moderate (4-7) Physical Exam - Constitutional Appears: No Acute Distress, Chronically Ill - Head Exam Head Exam: ATRAUMATIC, NORMAL INSPECTION - Eye Exam Eye Exam: EOMI, Normal appearance - Neck Exam Neck exam: Positive for: Normal Inspection. Negative for: Thyromegaly - Respiratory Exam Respiratory Exam: Clear to Auscultation Bilateral, NORMAL BREATHING PATTERN - Cardiovascular Exam Cardiovascular Exam: REGULAR RHYTHM, +S1 - GI/Abdominal Exam GI & Abdominal Exam: Distended, Soft, Tenderness - Extremities Exam Extremities exam: Positive for: normal inspection. Negative for: tenderness - Neurological Exam Neurological exam: Alert, CN II-XII Intact - Skin Skin Exam: Dry, Warm Results - Vital Signs Recent Vital Signs: Last Vital Signs Temp 97.7 F 01/19/18 07:20 Pulse 71 01/19/18 07:20 Resp 20 01/19/18 07:20 BP 160/80 H 01/19/18 07:20 Pulse Ox 98 01/19/18 07:20 - Labs Result Diagrams: 01/19/18 06:27 01/19/18 06:27 Labs: Laboratory Results - last 24 hr 01/18/18 01/18/18 01/18/18 12:57 16:49 21:08 WBC RBC Hgb Hct MCV MCH MCHC RDW Plt Count MPV Neut % (Auto) Lymph % (Auto) [place] % (Auto) Eos % (Auto) Baso % (Auto) Neut # (Auto) Lymph # (Auto) [place]verse # (Auto) Eos # (Auto) Baso # (Auto) PT INR APTT Sodium Potassium Chloride Carbon Dioxide Anion Gap BUN Creatinine Est GFR ( Amer) Est GFR (Non-Af Amer) POC Glucose (mg/dL) 96 84 Random Glucose Calcium Phosphorus Magnesium Total Bilirubin AST ALT Alkaline Phosphatase Total Protein Albumin Globulin Albumin/Globulin Ratio Lipase 46 Blood Type Antibody Screen 01/19/18 01/19/18 01/19/18 06:07 06:09 06:27 WBC 4.8 RBC 3.26 L Hgb 9.6 L Hct 28.2 L MCV 86.5 MCH 29.4 MCHC 34.0 RDW 14.4 Plt Count 248 MPV 7.4 Neut % (Auto) 60.3 Lymph % (Auto) 25.4 [place]verse % (Auto) 6.8 Eos % (Auto) 6.2 H Baso % (Auto) 1.3 Neut # (Auto) 2.9 Lymph # (Auto) 1.2 Traverse # (Auto) 0.3 Eos # (Auto) 0.3 Baso # (Auto) 0.1 PT INR APTT Sodium Potassium Chloride Carbon Dioxide Anion Gap BUN Creatinine Est GFR ( Amer) Est GFR (Non-Af Amer) POC Glucose (mg/dL) 69 63 L Random Glucose Calcium Phosphorus Magnesium Total Bilirubin AST ALT Alkaline Phosphatase Total Protein Albumin Globulin Albumin/Globulin Ratio Lipase Blood Type Antibody Screen 01/19/18 01/19/18 01/19/18 06:27 06:27 06:27 WBC RBC Hgb Hct MCV MCH MCHC RDW Plt Count MPV Neut % (Auto) Lymph % (Auto) [place]verse % (Auto) Eos % (Auto) Baso % (Auto) Neut # (Auto) Lymph # (Auto) Traverse # (Auto) Eos # (Auto) Baso # (Auto) PT 13.2 H INR 1.2 APTT 30 Sodium 133 Potassium 4.6 Chloride 89 L Carbon Dioxide 25 Anion Gap 23 H BUN 43 H Creatinine 8.3 H* D Est GFR ( Amer) 8 Est GFR (Non-Af Amer) 6 POC Glucose (mg/dL) Random Glucose 65 L Calcium 8.4 L Phosphorus 6.9 H Magnesium 2.0 Total Bilirubin 0.7 AST 40 ALT 37 Alkaline Phosphatase 46 Total Protein 6.3 Albumin 3.5 Globulin 2.8 Albumin/Globulin Ratio 1.2 Lipase Blood Type O POSITIVE Antibody Screen Negative 01/19/18 06:58 WBC RBC Hgb Hct MCV MCH MCHC RDW Plt Count MPV Neut % (Auto) Lymph % (Auto) [place]verse % (Auto) Eos % (Auto) Baso % (Auto) Neut # (Auto) Lymph # (Auto) Traverse # (Auto) Eos # (Auto) Baso # (Auto) PT INR APTT Sodium Potassium Chloride Carbon Dioxide Anion Gap BUN Creatinine Est GFR ( Amer) Est GFR (Non-Af Amer) POC Glucose (mg/dL) 134 H Random Glucose Calcium Phosphorus Magnesium Total Bilirubin AST ALT Alkaline Phosphatase Total Protein Albumin Globulin Albumin/Globulin Ratio Lipase Blood Type Antibody Screen Assessment & Plan (1) ESRD (end stage renal disease) Status: Acute (2) Hypertensive chronic kidney disease with stage 5 chronic kidney disease or end stage renal disease Status: Acute (3) Constipation Status: Acute (4) Hyperlipidemia Status: Chronic (5) Hypothyroidism Status: Chronic - Assessment and Plan (Free Text) Plan: Dialysis MWF Trial lactulose On rx for acute choleycystitis- as per medicine; decrease cipro dose on binders for elevated phos- limit dose due to constipation, n and v
[2018-01-19 14:51] VITALS: RESP 16
[2018-01-19] MEDS ORDERED: Epoetin Alfa 10,000 unit/ml Dialysis IV SCH (16:42)
--- NOTE | 2018-01-19 17:33 | CP.PCM.DIS ---
Provider - Provider Date of Admission: 01/18/18 10:27 Attending physician: Johnny Chappell DO Primary care physician: None Consults: Nephro: Darren Surgery: [place] Time Spent in preparation of Discharge (in minutes): 45 Hospital Course - Lab Results Lab Results: Most Recent Lab Values WBC 4.8 K/uL (4.8-10.8) 01/19/18 06:27 RBC 3.26 Mil/uL (4.40-5.90) L 01/19/18 06:27 Hgb 9.6 g/dL (12.0-18.0) L 01/19/18 06:27 Hct 28.2 % (35.0-51.0) L 01/19/18 06:27 MCV 86.5 fL (80.0-94.0) 01/19/18 06:27 MCH 29.4 pg (27.0-31.0) 01/19/18 06:27 MCHC 34.0 g/dL (33.0-37.0) 01/19/18 06:27 RDW 14.4 % (11.5-14.5) 01/19/18 06:27 Plt Count 248 K/uL (130-400) 01/19/18 06:27 MPV 7.4 fL (7.2-11.7) 01/19/18 06:27 Neut % (Auto) 60.3 % (50.0-75.0) 01/19/18 06:27 Lymph % (Auto) 25.4 % (20.0-40.0) 01/19/18 06:27 Cassia % (Auto) 6.8 % (0.0-10.0) 01/19/18 06:27 Eos % (Auto) 6.2 % (0.0-4.0) H 01/19/18 06:27 Baso % (Auto) 1.3 % (0.0-2.0) 01/19/18 06:27 Neut # (Auto) 2.9 K/uL (1.8-7.0) 01/19/18 06:27 Lymph # (Auto) 1.2 K/uL (1.0-4.3) 01/19/18 06:27 Cassia # (Auto) 0.3 K/uL (0.0-0.8) 01/19/18 06:27 Eos # (Auto) 0.3 K/uL (0.0-0.7) 01/19/18 06:27 Baso # (Auto) 0.1 K/uL (0.0-0.2) 01/19/18 06:27 PT 13.2 SECONDS (9.7-12.2) H 01/19/18 06:27 INR 1.2 01/19/18 06:27 APTT 30 SECONDS (21-34) 01/19/18 06:27 Sodium 133 mmol/L (132-148) 01/19/18 06:27 Potassium 4.6 mmol/L (3.6-5.2) 01/19/18 06:27 Chloride 89 mmol/L (98-107) L 01/19/18 06:27 Carbon Dioxide 25 mmol/L (22-30) 01/19/18 06:27 Anion Gap 23 (10-20) H 01/19/18 06:27 BUN 43 mg/dL (9-20) H 01/19/18 06:27 Creatinine 8.3 mg/dL (0.8-1.5) H* D 01/19/18 06:27 Est GFR ( Amer) 8 01/19/18 06:27 Est GFR (Non-Af Amer) 6 01/19/18 06:27 POC Glucose (mg/dL) 154 mg/dL (65-110) H 01/19/18 11:35 Random Glucose 65 mg/dL (75-110) L 01/19/18 06:27 Calcium 8.4 mg/dl (8.6-10.4) L 01/19/18 06:27 Phosphorus 6.9 mg/dL (2.5-4.5) H 01/19/18 06:27 Magnesium 2.0 mg/dL (1.6-2.3) 01/19/18 06:27 Total Bilirubin 0.7 mg/dL (0.2-1.3) 01/19/18 06:27 AST 40 U/L (17-59) 01/19/18 06:27 ALT 37 U/L (21-72) 01/19/18 06:27 Alkaline Phosphatase 46 U/L (38-126) 01/19/18 06:27 Troponin I 0.0570 ng/mL (0.00-0.120) 01/18/18 06:16 Total Protein 6.3 g/dL (6.3-8.3) 01/19/18 06:27 Albumin 3.5 g/dL (3.5-5.0) 01/19/18 06:27 Globulin 2.8 gm/dL (2.2-3.9) 01/19/18 06:27 Albumin/Globulin Ratio 1.2 (1.0-2.1) 01/19/18 06:27 Lipase 46 U/L (23-300) 01/18/18 12:57 Urine Color Colorless (YELLOW) 01/18/18 06:38 Urine Clarity Clear (Clear) 01/18/18 06:38 Urine pH 9.0 (5.0-8.0) 01/18/18 06:38 Ur Specific [place] 1.004 (1.003-1.030) 01/18/18 06:38 Urine Protein 2+ mg/dL (NEGATIVE) H 01/18/18 06:38 Urine Glucose (UA) 2+ mg/dL (Normal) H 01/18/18 06:38 Urine Ketones Negative mg/dL (NEGATIVE) 01/18/18 06:38 Urine Blood Negative (NEGATIVE) 01/18/18 06:38 Urine Nitrate Negative (NEGATIVE) 01/18/18 06:38 Urine Bilirubin Negative (NEGATIVE) 01/18/18 06:38 Urine Urobilinogen Normal mg/dL (0.2-1.0) 01/18/18 06:38 Ur Leukocyte Esterase Neg Kye/uL (Negative) 01/18/18 06:38 Urine WBC (Auto) 3 /hpf (0-5) 01/18/18 06:38 Urine RBC (Auto) < 1 /hpf (0-3) 01/18/18 06:38 Blood Type O POSITIVE 01/19/18 06:27 Antibody Screen Negative 01/19/18 06:27 - Hospital Course Hospital Course: H&P: 67 year old female with past medical history of ESRD on HD T//, HTn, HLD , CHF with EF of 36%, hypothyroidism presents ot hospital for RUQ abdominal pain that began last night. Patient is associated with 2 episodes of nausea/ vomiting and diarrhea. Vomiting occurred last night, was non-bloody and non- bilious. Diarrhea occurred last night, was non-bloody. Patient denies having any F/C. Patient presented to [facility] about 6 months ago for similar symptoms. At that time, patient was diagnosed with cholelithiasis. He was medically managed, his symptoms improved and he was discharged. Today, patient received pain medication in ED. He is resting comfortably and complains only of mild RUQ abd pain. Denies having any CP, SOB, N/V/D/C, F/C. Hospital course: patient had an abdominal US that was suspicious for acute nickolas. Surgery ordered US that was negative for acute nickolas. He had dialysis while he was here. Patient was seen by cardio for clearance however echo was not done before the patient was discharged. Patient was instructed to follow up in our clinic as well as follow up with Dr. Simon in his office. The remainder of his stay was unremarkable. Discharge Exam - Head Exam Head Exam: ATRAUMATIC, NORMOCEPHALIC - Eye Exam Eye Exam: EOMI, Normal appearance, PERRL Pupil Exam: NORMAL ACCOMODATION, PERRL - Respiratory Exam Respiratory Exam: Clear to PA & Lateral, UNREMARKABLE - Cardiovascular Exam Cardiovascular Exam: REGULAR RHYTHM - GI/Abdominal Exam GI & Abdominal Exam: Normal Bowel Sounds, Soft. absent: Distended, Tenderness - Neurological Exam Neurological exam: Alert, CN II-XII Intact, Normal Gait, Oriented x3, Reflexes Normal - Psychiatric Exam Psychiatric exam: Normal Affect, Normal Mood - Skin Skin Exam: Dry, Intact, Normal Color, Warm Discharge Plan - Discharge Medications Prescriptions: Carvedilol [Coreg] 3.125 mg PO BID #60 tab Enalapril Maleate [Vasotec] 2.5 mg PO DAILY #30 tab - Follow Up Plan Condition: FAIR Disposition: HOME/ ROUTINE Instructions: Acute Abdomen (Belly Pain), Adult (DC), Gallstones (DC), Cholecystitis (DC), Cholecystitis (GEN), Acute Abdominal Pain (DC), Acute Abdominal Pain (GEN) Additional Instructions: Please follow up with your primary doctor in 7-10 days If you do not have a regular doctor please follow up in our clinic. I have attached the information. Please follow up in Dr. Yu office in 7-10 days. I have attached his office information Please come back to the ED if symptoms return. Please continue taking your home medications Referrals: [facility] [Outside] Justin Simon MD [Staff Provider] -
[2018-01-19 18:18] VITALS: TEMP 97.6; O2SAT 97
[2018-01-19 18:29] VITALS: BP 162/93; PULSE 85
--- NOTE | 2018-01-20 03:26 | CON ---
DATE: REASON FOR CONSULTATION: Preoperative evaluation. HISTORY OF PRESENT ILLNESS: The patient is a 67-year-old male, who has history of end-stage renal disease, on hemodialysis for the past 4 years, history of hypertension, and history of hypothyroidism, presented with abdominal pain, nausea, vomiting, and diarrhea. Abdominal and pelvic CT scan revealed cholecystitis with apparent gallbladder wall thickening and mild pericystic infiltrate and fluid, most likely represent acute cholecystitis. Bilateral plural effusion, right greater than left with mild bibasilar atelectasis. Atrophic kidneys. Hepatobiliary scan, normal hepatobiliary scan study. The patient is being evaluated for an outpatient cholecystectomy. The patient denies any chest pain and is unaware of any prior cardiac history. SOCIAL HISTORY: Nonsmoker and nondrinker. MEDICATIONS: Flagyl 500 mg every 8 hours, heparin 5000 units subcutaneous twice a day, Norvasc 5 mg once a day, PhosLo one tablet three times a day, oxycodone 5 mg every 6 hours, and Synthroid 125 mcg once a day. REVIEW OF SYSTEMS: No fever or chills. No dizziness or syncope. No productive cough. PHYSICAL EXAMINATION: GENERAL: The patient is an elderly male, who does not appear to be in acute distress. VITAL SIGNS: Blood pressure 162/93, heart rate 85, temperature 97.5, and respirations 16. HEENT: Pale conjunctivae. CHEST: Clear. HEART: S1 and S2, regular. ABDOMEN: Mild right subcostal tenderness. EXTREMITIES: No edema. LABORATORY DATA: Hemoglobin and hematocrit 9.6 and 28.2, white count and platelet count are within normal limits. SMA-7: Sodium 133, potassium 4.6, chloride 89, CO2 of 25, glucose 65, BUN 43, and creatinine 8.3. INR is 1.2 and PT is 3. EKG reveals sinus rhythm at the rate of 91, prolonged PT interval. The most recent echo was from June of last year which revealed [id number] left ventricular systolic dysfunction with normal chamber size, mild mitral insufficiency, and mild tricuspid insufficiency. ASSESSMENT: 1. [id number] left ventricular dysfunction. 2. Calculus cholecystitis. 3. Hypertension. 4. Endstage renal disease, on hemodialysis. 5. Hypothyroidism. RECOMMENDATIONS: Discontinue Norvasc and start mg once a day. Start Coreg at 3.125 mg twice a day. The patient can undergo cholecystectomy from the cardiac point of view with postoperative telemetry monitoring. Blu London MD
--- NOTE | 2018-01-20 07:56 | PCM.HF ---
Heart Failure Core Measure - Heart Failure Ejection Fraction: Less Than 40 % RITESH Inhibitor Prescribed: Yes Beta-Kemar Prescribed: Carvedilol Angiotensin II Receptor Kemar Prescribed: No Contraindication/Reason for not providing: on ritesh AnticoagulationTherapy for Atrial Fibrillation/Atrialflutter: No Contraindication/Reason for not providing: no hx of a fib Aldosterone Antagonist Prescribed: No Contraindication/Reason for not providing: errd/risk for hyperkalemia Hydralazine Nitrate Prescribed: No Contraindication/Reason for not providing: norvasc Implantable Cardioverter Defibrillator Therapy: No Contraindication/Reason for not providing: medical management Cardiac Resynchronization Therapy Prescribed: No Contraindication/Reason for not providing: medical management - Follow up Will be discharged to: Home Follow Up Date (must be within 7 days from discharge): 01/22/18 Follow Up Time: 09:00
[2018-01-20] MEDS ORDERED: Ciprofloxacin 200mg/100ml D5W 100 ML IVPB SCH (10:00)
[2018-01-21] MEDS ORDERED: Epoetin Alfa 10,000 unit/ml Dialysis IV SCH (09:00)
== END 2018-01-19 20:45 | disposition home or self-care (01) | DRG 391 ==
LOC: C.ER 05:48 → C.9E 10:27 → C.6T 15:54
PROVIDERS: ADMIT Hospitalist; ATTEND Hospitalist
DX: K52.9 Noninfective gastroenteritis and colitis, unspecified (principal); N18.6 End stage renal disease; I13.2 Hypertensive heart and chronic kidney disease with heart failure and with stage 5 chronic kidney disease, or end stage renal disease; J98.11 Atelectasis; I50.9 Heart failure, unspecified; E03.9 Hypothyroidism, unspecified; E78.5 Hyperlipidemia, unspecified; Z87.891 Personal history of nicotine dependence; Z99.2 Dependence on renal dialysis; M19.90 Unspecified osteoarthritis, unspecified site; I48.91 Unspecified atrial fibrillation; K59.00 Constipation, unspecified

== ENCOUNTER 2018-01-26 08:34 | Inpatient (IN) | payer MEDICARE, OTHER ==
[2018-01-26 09:35] LABS: BASO # 0.1 K/uL (0.0-0.2); BASO % 1.2 % (0.0-2.0); EOS # 0.3 K/uL (0.0-0.7); EOS % 4.3 % (0.0-4.0); HEMOGLOBIN 10.4 g/dL (12.0-18.0); LYMPH # 1.3 K/uL (1.0-4.3); LYMPH % 20.1 % (20.0-40.0); MEAN CELL VOLUME 89.1 fL (80.0-94.0); MEAN CORPUSCULAR HGB CONC 33.7 g/dL (33.0-37.0); MEAN PLATELET VOLUME 7.3 fL (7.2-11.7); MONO # 0.4 K/uL (0.0-0.8); MONO % 5.5 % (0.0-10.0); NEUT # 4.5 K/uL (1.8-7.0); NEUT % 68.9 % (50.0-75.0); NRBC % 0.1 % (0.0-2.0); RBC 3.48 Mil/uL (4.40-5.90); RED CELL DISTRIBUTION WIDTH 15.2 % (11.5-14.5); WHITE BLOOD COUNT 6.5 K/uL (4.8-10.8)
[2018-01-26 09:43] LABS: INR 1.1; PROTHROMBIN TIME 12.1 SECONDS (9.7-12.2)
[2018-01-26 10:16] LABS: ALB/GLOB RATIO 1.5 (1.0-2.1); ALBUMIN 4.2 g/dL (3.5-5.0); CALCIUM 8.4 mg/dl (8.6-10.4)
--- NOTE | 2018-01-26 10:22 | RAD ---
HISTORY: cp COMPARISON: 01/18/2018 FINDINGS: LUNGS: Opacity at right base. No silhouetting the right heart border. Likely lower lobe infiltrate. Follow-up advised. Possible developing pneumonia. No other pulmonary infiltrate elsewhere. PLEURA: Minimal blunting of right costophrenic angle may reflect very small pleural effusion. No left pleural effusion. No pneumothorax. CARDIOVASCULAR: Normal. OSSEOUS STRUCTURES: No significant abnormalities. VISUALIZED UPPER ABDOMEN: Normal. OTHER FINDINGS: None. IMPRESSION: Right lower lobe infiltrate. Possible developing pneumonia. Possible small right pleural effusion. Follow-up advised.
[2018-01-26] MEDS ORDERED: Azithromycin 500 MG in Sodium Chloride 0.9% 250 ML IV STA (11:13)
[2018-01-26] MEDS ORDERED: cefTRIAXone IV 1 gm in Dextros 50 ML IV ONE (11:13)
--- NOTE | 2018-01-26 11:20 | C.PDOC ---
Time Seen by Provider: 01/26/18 09:29 Chief Complaint (Nursing): Abdominal Pain Past Medical History Vital Signs: Last Vital Signs Temp 97.9 F 01/26/18 08:59 Pulse 84 01/26/18 08:59 Resp 20 01/26/18 08:59 BP 187/101 H 01/26/18 10:10 Pulse Ox 99 01/26/18 08:59 - Medical History PMH: Arthritis, HTN, Hypothyroidism, Peripheral Edema (left arm and hand edema) , End Stage Renal Disease, Chronic Kidney Disease Denies: Alzheimer's Disease, Anemia, Anxiety, Atrial Fibrillation, Bipolar Disorder, Cardia Arrhythmia, CHF, Crohn's Disease, Dementia, Depression, Diverticulitis, Fractures, Gastritis, Gall Bladder Disease, HIV, Hypercholesterolemia, Hyperthyroidism, Kidney Stones, Migraine, Mitral Valve Prolapse, Multiple Sclerosis, Osteoporosis, Paranoia, Parkinson's Disease, Post Traumatic Stress Disorder, Rheumatoid Arthritis, Schizophrenia, Seizures, Sickle Cell Disease, Sexually Transmitted Disease, TIA Surgical History: Denies: Appendectomy, CABG, Carotid Endarterectomy, Cholecystectomy, Coronary Stent, Pacemaker, Tonsillectomy - [facility] (07/14/17) ARTHROCENTESIS (06/24/14) DIALYSIS ARTERIOVENOSTOM (06/24/14) HEMODIALYSIS (06/24/14) VENOUS CATHETERIZATION FOR RENAL DIALYSIS (06/24/14) Family History: States: Unknown Family Hx - Social History Hx Tobacco Use: No Hx Alcohol Use: No Hx Substance Use: No - Immunization History Hx Tetanus Toxoid Vaccination: No Hx Influenza Vaccination: No Hx Pneumococcal Vaccination: No ED Course And Treatment - Laboratory Results Result Diagrams: 01/26/18 09:19 01/26/18 09:19 O2 Sat by Pulse Oximetry: 99 Disposition - Disposition
[2018-01-26] MEDS ORDERED: cefTRIAXone IV 1 gm in Dextros 50 ML IVPB ONE (11:34)
--- NOTE | 2018-01-26 11:50 | CP.PCM.HP ---
<Makayla Corona - Last Filed: 01/26/18 14:41> History of Present Illness - History of Present Illness History of Present Illness: Medicine Note for Hospitalist Service - Dr. Rg CC: abdominal pain HPI: Mr. Jude Coffman is a 67 year old male with PMHx as listed below who presents to the ED with abdominal pain. Patient was admitted on 01/18 for cholecystitis, with negative HIDA scan. Plan was for elective outpatient cholecystectomy. Patient received cardio clearance from Dr. London for the procedure. Patient did not follow up in the clinic to make an appointment with Dr. Simon. He returns today due to abdominal pain, nausea, dry heaving (6 episodes) that started the night prior to admission. He reports the pain is sharp, intermittent and causes him to have nausea, resulting in him dry heaving. Due to the persistent dry heaving, he reports pain during deep inspiration. Denied fever, chills, headache, chest pain, diarrhea, or urinary symptoms. PMHx: Systolic HF with last known EF of 36% (2016), HTN, ESRD on HD MWF, hypothyroidism, hyperlipidemia PSHx: Left AV fistula Meds: As per NOV Allergies: NKDA SH: Denies Smoking, eoth use, illicit drug use, unemployed lives with and children FH: sister who recently from Renal failure Nephrology: Darren Present on Admission - Present on Admission Any Indicators Present on Admission: No Past Patient History - Infectious Disease Hx of Infectious Diseases: None - Past Medical History & Family History Past Medical History?: Yes - Past Social History Smoking Status: Former Smoker - CARDIAC Hx Atrial Fibrillation: No Hx Cardia Arrhythmia: No Hx Congestive Heart Failure: No Hx Hypercholesterolemia: No Hx Hypertension: Yes Hx Mitral Valve Prolapse: No Hx Pacemaker: No Hx Peripheral Edema: Yes (left arm and hand edema) - PULMONARY Hx Respiratory Disorders: No - NEUROLOGICAL Hx Alzheimer's Disease: No Hx Dementia: No Hx Migraine: No Hx Multiple Sclerosis: No Hx Parkinson's Disease: No Hx Seizures: No Hx Transient Ischemic Attacks (TIA): No - HEENT Hx HEENT Problems: No Hx Blind: No Hx Cataracts: No Hx Deafness: No Hx Difficulty Chewing: No Hx Epistaxis: No Hx Glaucoma: No Hx Macular Degeneration: No - RENAL Hx Chronic Kidney Disease: Yes Hx Kidney Stones: No - ENDOCRINE/METABOLIC Hx Hyperthyroidism: No Hx Hypothyroidism: Yes - HEMATOLOGICAL/ONCOLOGICAL Hx Anemia: No Hx Human Immunodeficiency Virus (HIV): No Hx Sickle Cell Disease: No - INTEGUMENTARY Hx Basil Cell: No Hx Wyatt: No Hx Cellulitis: No Hx Eczema: No Hx Melanoma: No Hx Psoriasis: No Hx Squamous Cell: No - MUSCULOSKELETAL/RHEUMATOLOGICAL Hx Arthritis: Yes Hx Fractures: No Hx Osteoporosis: No Hx Rheumatoid Arthritis: No - GASTROINTESTINAL Hx Crohn's Disease: No Hx Diverticulitis: No Hx Gall Bladder Disease: No Hx Gastritis: No - GENITOURINARY/GYNECOLOGICAL Hx Sexually Transmitted Disorders: No - PSYCHIATRIC Hx Anxiety: No Hx Bipolar Disorder: No Hx Depression: No Hx Paranoia: No Hx Post Traumatic Stress Disorder: No Hx Schizophrenia: No Hx Substance Use: No - SURGICAL HISTORY Hx Appendectomy: No Hx Carotid Endarterectomy: No Hx Cholecystectomy: No Hx Coronary Artery Bypass Graft: No Hx Coronary Stent: No Hx Tonsillectomy: No - ANESTHESIA Hx Anesthesia: Yes Hx Anesthesia Reactions: Yes Hx Malignant Hyperthermia: No Meds Allergies/Adverse Reactions: Allergies Allergy/AdvReac Type Severity Reaction Status Date / Time No Known Allergies Allergy Verified 01/26/18 08:56 Physical Exam - Constitutional Appears: No Acute Distress - Head Exam Head Exam: NORMAL INSPECTION, NORMOCEPHALIC - Eye Exam Eye Exam: EOMI, Normal appearance, PERRL Pupil Exam: NORMAL ACCOMODATION - ENT Exam ENT Exam: Mucous Membranes Moist, Normal Exam - Respiratory Exam Respiratory Exam: Rales (crackles heard on lower lung bases BL ), NORMAL BREATHING PATTERN - Cardiovascular Exam Cardiovascular Exam: REGULAR RHYTHM - GI/Abdominal Exam GI & Abdominal Exam: Normal Bowel Sounds, Soft, Tenderness (TTP RUQ, epigastric area ). absent: Distended - Extremities Exam Extremities exam: Positive for: normal inspection, pedal pulses present. Negative for: pedal edema, tenderness - Back Exam Back exam: NORMAL INSPECTION - Neurological Exam Neurological exam: Alert, CN II-XII Intact, Oriented x3 - Psychiatric Exam Psychiatric exam: Normal Affect, Normal Mood - Skin Skin Exam: Dry, Intact, Normal Color, Warm Results - Vital Signs Recent Vital Signs: Last Vital Signs Temp 97.9 F 01/26/18 08:59 Pulse 77 01/26/18 11:16 Resp 20 01/26/18 11:16 BP 169/90 H 01/26/18 11:16 Pulse Ox 99 01/26/18 11:20 - Labs Result Diagrams: 01/26/18 09:19 01/26/18 09:19 Labs: Laboratory Results - last 24 hr 01/26/18 01/26/18 01/26/18 09:19 09:19 09:19 WBC 6.5 RBC 3.48 L Hgb 10.4 L Hct 31.0 L MCV 89.1 D MCH 30.0 MCHC 33.7 RDW 15.2 H Plt Count 260 MPV 7.3 Neut % (Auto) 68.9 Lymph % (Auto) 20.1 Bulloch % (Auto) 5.5 Eos % (Auto) 4.3 H Baso % (Auto) 1.2 Neut # (Auto) 4.5 Lymph # (Auto) 1.3 Bulloch # (Auto) 0.4 Eos # (Auto) 0.3 Baso # (Auto) 0.1 PT 12.1 INR 1.1 APTT 32 Sodium 131 L Potassium 4.9 Chloride 89 L Carbon Dioxide 24 Anion Gap 23 H BUN 53 H Creatinine 8.1 H* Est GFR ( Amer) 8 Est GFR (Non-Af Amer) 7 Random Glucose 100 Calcium 8.4 L Total Bilirubin 0.7 AST 29 ALT 35 Alkaline Phosphatase 58 NT-Pro-B Natriuret Pep Total Protein 7.0 Albumin 4.2 Globulin 2.7 Albumin/Globulin Ratio 1.5 01/26/18 10:23 WBC RBC Hgb Hct MCV MCH MCHC RDW Plt Count MPV Neut % (Auto) Lymph % (Auto) Bull[place] % (Auto) Eos % (Auto) Baso % (Auto) Neut # (Auto) Lymph # (Auto) [place] # (Auto) Eos # (Auto) Baso # (Auto) PT INR APTT Sodium Potassium Chloride Carbon Dioxide Anion Gap BUN Creatinine Est GFR ( Amer) Est GFR (Non-Af Amer) Random Glucose Calcium Total Bilirubin AST ALT Alkaline Phosphatase NT-Pro-B Natriuret Pep 29288 H Total Protein Albumin Globulin Albumin/Globulin Ratio Assessment & Plan - Assessment and Plan (Free Text) Assessment: Mr. Jude Coffman is a 67 year old male with PMHx as listed below who presents to the ED with abdominal pain. Patient was admitted on 01/18 for cholecystitis, with negative HIDA scan. Plan was for elective outpatient cholecystectomy. Patient received cardio clearance from Dr. London for the procedure. Admitted for persistent RUQ pain. Plan: Cholelithiasis Cardiology consulted on previous admission - Dr. London - Patient was cleared by Cardio on 01/19/18 for surgery Surgery consulted - Dr. Moore - help appreciated Imaging from previous admission on 01/18/18 Ab US: Cholelithiasis with mild gallbladder wall thickening- edema with a tiny amount of free fluid adjacent to the gallbladder wall. . Rule out cholecystitis. HIDA: Normal Hepatobiliary Scan. The cystic duct is patent. CT Abdomen/ Pelvis: Cholelithiasis with apparent gallbladder wall thickening and mild pericholecystic infiltration and fluid. Findings most likely represent acute cholecystitis. Bilateral effusions right larger than left with mild bibasilar atelectasis ESRD on HD Nephrology consulted - Dr. Banks MWF HTN Continue coreg, vasotec Hx HLD F/U lipid panel Hx Hypothyroidism F/U TSH, Free T4 Prophylaxis GI PPX: Pepcid DVT PPX: SCDs, VTE held possible surgery DW Dr. Rg, Makayla Corona DO, PGY-1 <Lawanda Rg - Last Filed: 01/26/18 18:33> Results - Vital Signs Recent Vital Signs: Last Vital Signs Temp 97.3 F L 01/26/18 15:35 Pulse 76 01/26/18 15:35 Resp 20 01/26/18 15:35 BP 150/88 01/26/18 15:35 Pulse Ox 100 01/26/18 15:35 - Labs Result Diagrams: 01/26/18 09:19 01/26/18 09:19 Labs: Laboratory Results - last 24 hr 01/26/18 01/26/18 01/26/18 09:19 09:19 09:19 WBC 6.5 RBC 3.48 L Hgb 10.4 L Hct 31.0 L MCV 89.1 D MCH 30.0 MCHC 33.7 RDW 15.2 H Plt Count 260 MPV 7.3 Neut % (Auto) 68.9 Lymph % (Auto) 20.1 Bull[place] % (Auto) 5.5 Eos % (Auto) 4.3 H Baso % (Auto) 1.2 Neut # (Auto) 4.5 Lymph # (Auto) 1.3 Bull[place] # (Auto) 0.4 Eos # (Auto) 0.3 Baso # (Auto) 0.1 PT 12.1 INR 1.1 APTT 32 Sodium 131 L Potassium 4.9 Chloride 89 L Carbon Dioxide 24 Anion Gap 23 H BUN 53 H Creatinine 8.1 H* Est GFR ( Amer) 8 Est GFR (Non-Af Amer) 7 POC Glucose (mg/dL) Random Glucose 100 Calcium 8.4 L Total Bilirubin 0.7 AST 29 ALT 35 Alkaline Phosphatase 58 NT-Pro-B Natriuret Pep Total Protein 7.0 Albumin 4.2 Globulin 2.7 Albumin/Globulin Ratio 1.5 01/26/18 01/26/18 10:23 17:26 WBC RBC Hgb Hct MCV MCH MCHC RDW Plt Count MPV Neut % (Auto) Lymph % (Auto) Bulloch % (Auto) Eos % (Auto) Baso % (Auto) Neut # (Auto) Lymph # (Auto) Bulloch # (Auto) Eos # (Auto) Baso # (Auto) PT INR APTT Sodium Potassium Chloride Carbon Dioxide Anion Gap BUN Creatinine Est GFR ( Amer) Est GFR (Non-Af Amer) POC Glucose (mg/dL) 105 Random Glucose Calcium Total Bilirubin AST ALT Alkaline Phosphatase NT-Pro-B Natriuret Pep 82450 H Total Protein Albumin Globulin Albumin/Globulin Ratio Attending/Attestation - Attestation I have personally seen and examined this patient.: Yes I have fully participated in the care of the patient.: Yes I have reviewed all pertinent clinical information: Yes Notes (Text): This is a 67 year old male with past medical history of ESRD on HD T//, HTn , HLD, CHF with EF of 36%, hypothyroidism presents to the hospital for abdominal .Recent hospitalization for cholecystitis ,negative HIDA scan and discharge for out patient cholecystectomy. He came back with pain. last admission 01/18/2018 CT abdomen noted,cleared by cardio for surgery plan discussed with the resident I agree with the documentation of the assessment and the plan 1. Gall stone and abdominal pain 2. ESRD on HD 3. Chronic systolic heart failure 4.Hypothyroidism
[2018-01-26] MEDS ORDERED: Bisacodyl 5mg EC Tab PO ONE (15:00)
--- NOTE | 2018-01-26 16:11 | CP.PCM.CON ---
History of Present Illness - History of Present Illness History of Present Illness: Surgery- Dr. Moore Past Patient History - Infectious Disease Hx of Infectious Diseases: None - Past Medical History & Family History Past Medical History?: Yes - Past Social History Smoking Status: Former Smoker - CARDIAC Hx Atrial Fibrillation: No Hx Cardia Arrhythmia: No Hx Congestive Heart Failure: No Hx Hypercholesterolemia: No Hx Hypertension: Yes Hx Mitral Valve Prolapse: No Hx Pacemaker: No Hx Peripheral Edema: Yes (left arm and hand edema) - PULMONARY Hx Respiratory Disorders: No - NEUROLOGICAL Hx Alzheimer's Disease: No Hx Dementia: No Hx Migraine: No Hx Multiple Sclerosis: No Hx Parkinson's Disease: No Hx Seizures: No Hx Transient Ischemic Attacks (TIA): No - HEENT Hx HEENT Problems: No Hx Blind: No Hx Cataracts: No Hx Deafness: No Hx Difficulty Chewing: No Hx Epistaxis: No Hx Glaucoma: No Hx Macular Degeneration: No - RENAL Hx Chronic Kidney Disease: Yes Hx Kidney Stones: No - ENDOCRINE/METABOLIC Hx Hyperthyroidism: No Hx Hypothyroidism: Yes - HEMATOLOGICAL/ONCOLOGICAL Hx Anemia: No Hx Human Immunodeficiency Virus (HIV): No Hx Sickle Cell Disease: No - INTEGUMENTARY Hx Basil Cell: No Hx Wyatt: No Hx Cellulitis: No Hx Eczema: No Hx Melanoma: No Hx Psoriasis: No Hx Squamous Cell: No - MUSCULOSKELETAL/RHEUMATOLOGICAL Hx Arthritis: Yes Hx Fractures: No Hx Osteoporosis: No Hx Rheumatoid Arthritis: No - GASTROINTESTINAL Hx Crohn's Disease: No Hx Diverticulitis: No Hx Gall Bladder Disease: No Hx Gastritis: No - GENITOURINARY/GYNECOLOGICAL Hx Sexually Transmitted Disorders: No - PSYCHIATRIC Hx Anxiety: No Hx Bipolar Disorder: No Hx Depression: No Hx Paranoia: No Hx Post Traumatic Stress Disorder: No Hx Schizophrenia: No Hx Substance Use: No - SURGICAL HISTORY Hx Appendectomy: No Hx Carotid Endarterectomy: No Hx Cholecystectomy: No Hx Coronary Artery Bypass Graft: No Hx Coronary Stent: No Hx Tonsillectomy: No - ANESTHESIA Hx Anesthesia: Yes Hx Anesthesia Reactions: Yes Hx Malignant Hyperthermia: No Meds Allergies/Adverse Reactions: Allergies Allergy/AdvReac Type Severity Reaction Status Date / Time No Known Allergies Allergy Verified 01/26/18 08:56 - Medications Medications: Current Medications Aspirin (Ecotrin) 81 mg PO DAILY [facility] Calcium Acetate (Phoslo) 667 mg PO TIDCC [facility] Last Admin: 01/26/18 14:53 Dose: 667 mg Carvedilol (Coreg) 3.125 mg PO BID [facility] Docusate Sodium (Colace) 100 mg PO TID [facility] Enalapril Maleate (Vasotec) 2.5 mg PO DAILY [facility] Epoetin Michael (Procrit) 10,000 unit IV MWF [facility] Famotidine (Pepcid) 20 mg PO DAILY [facility] Ondansetron HCl (Zofran Inj) 4 mg IVP Q6 PRN PRN Reason: Nausea/Vomiting Results - Vital Signs Recent Vital Signs: Last Vital Signs Temp 97.9 F 01/26/18 08:59 Pulse 72 01/26/18 12:29 Resp 22 01/26/18 13:37 BP 169/74 H 01/26/18 12:29 Pulse Ox 95 01/26/18 13:37 - Labs Result Diagrams: 01/26/18 09:19 01/26/18 09:19 Labs: Laboratory Results - last 24 hr 01/26/18 01/26/18 01/26/18 09:19 09:19 09:19 WBC 6.5 RBC 3.48 L Hgb 10.4 L Hct 31.0 L MCV 89.1 D MCH 30.0 MCHC 33.7 RDW 15.2 H Plt Count 260 MPV 7.3 Neut % (Auto) 68.9 Lymph % (Auto) 20.1 Butts % (Auto) 5.5 Eos % (Auto) 4.3 H Baso % (Auto) 1.2 Neut # (Auto) 4.5 Lymph # (Auto) 1.3 Butts # (Auto) 0.4 Eos # (Auto) 0.3 Baso # (Auto) 0.1 PT 12.1 INR 1.1 APTT 32 Sodium 131 L Potassium 4.9 Chloride 89 L Carbon Dioxide 24 Anion Gap 23 H BUN 53 H Creatinine 8.1 H* Est GFR ( Amer) 8 Est GFR (Non-Af Amer) 7 Random Glucose 100 Calcium 8.4 L Total Bilirubin 0.7 AST 29 ALT 35 Alkaline Phosphatase 58 NT-Pro-B Natriuret Pep Total Protein 7.0 Albumin 4.2 Globulin 2.7 Albumin/Globulin Ratio 1.5 01/26/18 10:23 WBC RBC Hgb Hct MCV MCH MCHC RDW Plt Count MPV Neut % (Auto) Lymph % (Auto) [place]ts % (Auto) Eos % (Auto) Baso % (Auto) Neut # (Auto) Lymph # (Auto) Butts # (Auto) Eos # (Auto) Baso # (Auto) PT INR APTT Sodium Potassium Chloride Carbon Dioxide Anion Gap BUN Creatinine Est GFR ( Amer) Est GFR (Non-Af Amer) Random Glucose Calcium Total Bilirubin AST ALT Alkaline Phosphatase NT-Pro-B Natriuret Pep 71237 H Total Protein Albumin Globulin Albumin/Globulin Ratio
--- NOTE | 2018-01-26 16:47 | CP.PCM.CON ---
History of Present Illness - History of Present Illness History of Present Illness: General Surgery- Dr. Moore 67M w/ pmhx significant for ESRD on HD, hypothyroidism, systolic HF, cholelithiasis. Patient was recently admitted for cholelithasis on 01/18/18 and was to follow up as an outpatient for elective cholecystectomy. Patient presents to [facility] [place] ED w/ mid-epigastric to RUQ abdominal pain after eating. Pt has associated nausea and wretching, w/ no vomiting. States normal BM, and no changes in urinary habits. Pt has experienced similar pain in the past that spontaneously resolves. Denies: Fevers, chills, chest pain, shortness of breath, vomiting, diarrhea, sudden changes in vision, changes in urinary or bowel habits, bright red blood per rectum. Of note: Patient has cardiac clearance on 01/19/[address] London PMH: HTN, ESRD on HD MWF, hypothyroidism, systolic HF last known EF 36% PSH: L. AV Fistula ALL: NKDA SocialHx: Denies tobacco, etoh, recreational drug use FamilyHx: sister pass away from renal failure Review of Systems - Review of Systems All systems: reviewed and no additional remarkable complaints except - Constitutional Constitutional: As Per HPI Past Patient History - Infectious Disease Hx of Infectious Diseases: None - Past Medical History & Family History Past Medical History?: Yes - Past Social History Smoking Status: Former Smoker - CARDIAC Hx Atrial Fibrillation: No Hx Cardia Arrhythmia: No Hx Congestive Heart Failure: No Hx Hypercholesterolemia: No Hx Hypertension: Yes Hx Mitral Valve Prolapse: No Hx Pacemaker: No Hx Peripheral Edema: Yes (left arm and hand edema) - PULMONARY Hx Respiratory Disorders: No - NEUROLOGICAL Hx Alzheimer's Disease: No Hx Dementia: No Hx Migraine: No Hx Multiple Sclerosis: No Hx Parkinson's Disease: No Hx Seizures: No Hx Transient Ischemic Attacks (TIA): No - HEENT Hx HEENT Problems: No Hx Blind: No Hx Cataracts: No Hx Deafness: No Hx Difficulty Chewing: No Hx Epistaxis: No Hx Glaucoma: No Hx Macular Degeneration: No - RENAL Hx Chronic Kidney Disease: Yes Hx Kidney Stones: No - ENDOCRINE/METABOLIC Hx Hyperthyroidism: No Hx Hypothyroidism: Yes - HEMATOLOGICAL/ONCOLOGICAL Hx Anemia: No Hx Human Immunodeficiency Virus (HIV): No Hx Sickle Cell Disease: No - INTEGUMENTARY Hx Basil Cell: No Hx Wyatt: No Hx Cellulitis: No Hx Eczema: No Hx Melanoma: No Hx Psoriasis: No Hx Squamous Cell: No - MUSCULOSKELETAL/RHEUMATOLOGICAL Hx Arthritis: Yes Hx Fractures: No Hx Osteoporosis: No Hx Rheumatoid Arthritis: No - GASTROINTESTINAL Hx Crohn's Disease: No Hx Diverticulitis: No Hx Gall Bladder Disease: No Hx Gastritis: No - GENITOURINARY/GYNECOLOGICAL Hx Sexually Transmitted Disorders: No - PSYCHIATRIC Hx Anxiety: No Hx Bipolar Disorder: No Hx Depression: No Hx Paranoia: No Hx Post Traumatic Stress Disorder: No Hx Schizophrenia: No Hx Substance Use: No - SURGICAL HISTORY Hx Appendectomy: No Hx Carotid Endarterectomy: No Hx Cholecystectomy: No Hx Coronary Artery Bypass Graft: No Hx Coronary Stent: No Hx Tonsillectomy: No - ANESTHESIA Hx Anesthesia: Yes Hx Anesthesia Reactions: Yes Hx Malignant Hyperthermia: No Meds Allergies/Adverse Reactions: Allergies Allergy/AdvReac Type Severity Reaction Status Date / Time No Known Allergies Allergy Verified 01/26/18 08:56 - Medications Medications: Current Medications Aspirin (Ecotrin) 81 mg PO DAILY [facility] Calcium Acetate (Phoslo) 667 mg PO TIDCC [facility] Last Admin: 01/26/18 14:53 Dose: 667 mg Carvedilol (Coreg) 3.125 mg PO BID [facility] Docusate Sodium (Colace) 100 mg PO TID [facility] Enalapril Maleate (Vasotec) 2.5 mg PO DAILY [facility] Epoetin Michael (Procrit) 10,000 unit IV MWF [facility] Famotidine (Pepcid) 20 mg PO DAILY [facility] Ondansetron HCl (Zofran Inj) 4 mg IVP Q6 PRN PRN Reason: Nausea/Vomiting Physical Exam - Constitutional Appears: Non-toxic, No Acute Distress - Head Exam Head Exam: ATRAUMATIC - Eye Exam Eye Exam: EOMI - ENT Exam ENT Exam: Mucous Membranes Moist - Respiratory Exam Respiratory Exam: NORMAL BREATHING PATTERN. absent: Accessory Muscle Use, Respiratory Distress - Cardiovascular Exam Cardiovascular Exam: +S1, +S2. absent: Bradycardia, Tachycardia - GI/Abdominal Exam GI & Abdominal Exam: Soft, Tenderness (RUQ. + Grover). absent: Distended, Firm , Guarding, Hernia - Neurological Exam Neurological exam: Alert, Oriented x3 - Psychiatric Exam Psychiatric exam: Normal Affect - Skin Skin Exam: Intact, Warm Results - Vital Signs Recent Vital Signs: Last Vital Signs Temp 97.3 F L 01/26/18 15:35 Pulse 76 01/26/18 15:35 Resp 20 01/26/18 15:35 BP 150/88 01/26/18 15:35 Pulse Ox 100 01/26/18 15:35 - Labs Result Diagrams: 01/26/18 09:19 01/26/18 09:19 Labs: Laboratory Results - last 24 hr 01/26/18 01/26/18 01/26/18 09:19 09:19 09:19 WBC 6.5 RBC 3.48 L Hgb 10.4 L Hct 31.0 L MCV 89.1 D MCH 30.0 MCHC 33.7 RDW 15.2 H Plt Count 260 MPV 7.3 Neut % (Auto) 68.9 Lymph % (Auto) 20.1 [place] % (Auto) 5.5 Eos % (Auto) 4.3 H Baso % (Auto) 1.2 Neut # (Auto) 4.5 Lymph # (Auto) 1.3 [place] # (Auto) 0.4 Eos # (Auto) 0.3 Baso # (Auto) 0.1 PT 12.1 INR 1.1 APTT 32 Sodium 131 L Potassium 4.9 Chloride 89 L Carbon Dioxide 24 Anion Gap 23 H BUN 53 H Creatinine 8.1 H* Est GFR ( Amer) 8 Est GFR (Non-Af Amer) 7 Random Glucose 100 Calcium 8.4 L Total Bilirubin 0.7 AST 29 ALT 35 Alkaline Phosphatase 58 NT-Pro-B Natriuret Pep Total Protein 7.0 Albumin 4.2 Globulin 2.7 Albumin/Globulin Ratio 1.5 01/26/18 10:23 WBC RBC Hgb Hct MCV MCH MCHC RDW Plt Count MPV Neut % (Auto) Lymph % (Auto) [place] % (Auto) Eos % (Auto) Baso % (Auto) Neut # (Auto) Lymph # (Auto) [place] # (Auto) Eos # (Auto) Baso # (Auto) PT INR APTT Sodium Potassium Chloride Carbon Dioxide Anion Gap BUN Creatinine Est GFR ( Amer) Est GFR (Non-Af Amer) Random Glucose Calcium Total Bilirubin AST ALT Alkaline Phosphatase NT-Pro-B Natriuret Pep 72323 H Total Protein Albumin Globulin Albumin/Globulin Ratio Assessment & Plan - Assessment and Plan (Free Text) Assessment: 67M w/ recurrently symptomatic cholelithiasis Plan: - hemodialysis today - Cardiac clearance obtained. Plan for Remote tele post-op - NPO @ [facility] - IVF/Abx - GI/DVT ppx - Plan for cholecystectomy tomorrow - discussed w/ [facility]
[2018-01-26] MEDS ORDERED: Home Med 1 UNIT (Simvastatin [Simvastatin] 1 TAB) PO SCH (18:00)
[2018-01-26] MEDS: Epoetin Alfa 10,000 unit/ml Dialysis IV SCH (20:17)
[2018-01-26] MEDS ORDERED: Morphine 4 MG/ML VIAL IVP PRN (20:37)
[2018-01-27 05:10] LABS: BASO # 0.1 K/uL (0.0-0.2); BASO % 2.2 % (0.0-2.0); EOS # 0.1 K/uL (0.0-0.7); EOS % 2.8 % (0.0-4.0); HEMOGLOBIN 10.1 g/dL (12.0-18.0); LYMPH % 22.6 % (20.0-40.0); MEAN CELL VOLUME 88.6 fL (80.0-94.0); MEAN CORPUSCULAR HEMOGLOBIN 29.6 pg (27.0-31.0); MEAN CORPUSCULAR HGB CONC 33.4 g/dL (33.0-37.0); MEAN PLATELET VOLUME 7.2 fL (7.2-11.7); MONO # 0.3 K/uL (0.0-0.8); MONO % 6.5 % (0.0-10.0); NEUT % 65.9 % (50.0-75.0); NRBC % 0.1 % (0.0-2.0); RBC 3.42 Mil/uL (4.40-5.90); RED CELL DISTRIBUTION WIDTH 15.4 % (11.5-14.5); WHITE BLOOD COUNT 4.5 K/uL (4.8-10.8)
[2018-01-27 05:18] LABS: INR 1.2; PROTHROMBIN TIME 13.1 SECONDS (9.7-12.2)
[2018-01-27] MEDS ORDERED: Levothyroxine 125 MCG TAB PO SCH (06:30)
[2018-01-27 06:47] LABS: ALB/GLOB RATIO 1.3 (1.0-2.1); ALBUMIN 3.6 g/dL (3.5-5.0); CALCIUM 8.2 mg/dl (8.6-10.4)
[2018-01-27] MEDS ORDERED: ceFAZolin 1 gm in NS 1 GM/100 ML BAG IVPB ONE (09:07)
[2018-01-27] MEDS ORDERED: Midazolam 2 MG/2 ML VIAL ONE (09:28)
[2018-01-27] MEDS ORDERED: Propofol 10 mg/ml Inj (20 ML) ONE (09:28)
[2018-01-27] MEDS ORDERED: Etomidate 20 mg/10ml Inj IV ONE (09:36)
[2018-01-27] MEDS ORDERED: HYDROmorphone 0.5 mg/0.5 ml ISec IVP PRN (10:19)
[2018-01-27] MEDS ORDERED: Neostigmine Methylsulfate 3mg/3ml Syringe IV ONE (10:28)
--- NOTE | 2018-01-27 10:54 | PCM.SURG1 ---
Surgeon's Initial Post Op Note - Surgeon's Notes Surgeon: Dr. Moore Control Room Helper: Dr. Cooley PGY2, Dr. Nolasco PGY3 Type of Anesthesia: General Endo Pre-Operative Diagnosis: chronic cholecystitis Operative Findings: chronically inflammed gallbladder, omental adhesions Post-Operative Diagnosis: same Operation Performed: laparoscopic cholecystectomy Specimen/Specimens Removed: gallbladder Estimated Blood Loss: EBL {In ML}: 10 Blood Products Given: N/A Drains Used: No Drains Post-Op Condition: Good Date of Surgery/Procedure: 01/27/18 Time of Surgery/Procedure: 10:53
--- NOTE | 2018-01-27 12:09 | CP.PCM.PN ---
<Makayla Corona - Last Filed: 01/27/18 12:04> Subjective - Date & Time of Evaluation Date of Evaluation: 01/27/18 Time of Evaluation: 09:00 - Subjective Subjective: Medicine Progress Note for Hospitalist Service- Dr. Rg Patient was seen and examined at bedside. Patient was seen prior to being taking to OR for lap nickolas. No acute complaints. Denied fever, chills, shortness of breath, chest pain, abdominal pain, n/v/d/c, or urinary symptoms. Objective - Vital Signs/Intake and Output Vital Signs (last 24 hours): Temp Pulse Resp BP Pulse Ox 97.6 F 71 20 148/77 100 01/27/18 08:48 01/27/18 08:48 01/27/18 08:48 01/27/18 08:48 01/27/18 08:48 Intake and Output: 01/27/18 01/27/18 06:59 18:59 Intake Total 540 500 Balance 540 500 - Medications Medications: Current Medications Aspirin (Ecotrin) 81 mg PO DAILY [facility] Last Admin: 01/27/18 09:01 Dose: Not Given Calcium Acetate (Phoslo) 667 mg PO TIDCC [facility] Last Admin: 01/27/18 08:53 Dose: Not Given Carvedilol (Coreg) 3.125 mg PO BID [facility] Last Admin: 01/27/18 09:01 Dose: Not Given Docusate Sodium (Colace) 100 mg PO TID [facility] Last Admin: 01/27/18 09:00 Dose: Not Given Enalapril Maleate (Vasotec) 2.5 mg PO DAILY [facility] Last Admin: 01/27/18 09:01 Dose: Not Given Epoetin Michael (Procrit) 10,000 unit IV MWF [facility] Last Admin: 01/26/18 20:17 Dose: 10,000 unit Famotidine (Pepcid) 20 mg PO DAILY [facility] Last Admin: 01/27/18 09:01 Dose: Not Given Hydromorphone HCl (Dilaudid) 0.5 mg IVP Q5M PRN PRN Reason: Pain, moderate (4-7) Stop: 01/27/18 12:19 Morphine Sulfate (Morphine) 2 mg IVP Q4 PRN PRN Reason: Pain, moderate (4-7) Ondansetron HCl (Zofran Inj) 4 mg IVP Q6 PRN PRN Reason: Nausea/Vomiting Ondansetron HCl (Zofran Inj) 4 mg IVP ONCE PRN PRN Reason: Nausea/Vomiting Stop: 01/27/18 12:19 Oxycodone/Acetaminophen (Percocet 5/325 Mg Tab) 1 tab PO Q4H PRN PRN Reason: Pain, moderate (4-7) Stop: 01/30/18 10:54 - Labs Labs: 01/27/18 05:01 01/27/18 05:01 PT 13.1 SECONDS (9.7-12.2) H 01/27/18 05:01 INR 1.2 01/27/18 05:01 APTT 32 SECONDS (21-34) 01/27/18 05:01 - Additional Findings Additional findings: - Constitutional Appears: No Acute Distress - Head Exam Head Exam: NORMAL INSPECTION, NORMOCEPHALIC - Eye Exam Eye Exam: EOMI, Normal appearance, PERRL Pupil Exam: NORMAL ACCOMODATION - ENT Exam ENT Exam: Mucous Membranes Moist, Normal Exam - Respiratory Exam Respiratory Exam: Rales (crackles heard on lower lung bases BL ), NORMAL BREATHING PATTERN - Cardiovascular Exam Cardiovascular Exam: REGULAR RHYTHM - GI/Abdominal Exam GI & Abdominal Exam: Normal Bowel Sounds, Soft, Tenderness (TTP RUQ, epigastric area ). absent: Distended - Extremities Exam Extremities exam: Positive for: normal inspection, pedal pulses present. Negative for: pedal edema, tenderness - Back Exam Back exam: NORMAL INSPECTION - Neurological Exam Neurological exam: Alert, CN II-XII Intact, Oriented x3 - Psychiatric Exam Psychiatric exam: Normal Affect, Normal Mood - Skin Skin Exam: Dry, Intact, Normal Color, Warm Assessment and Plan - Assessment and Plan (Free Text) Assessment: Mr. Jude Coffman is a 67 year old male with PMHx as listed below who presents to the ED with abdominal pain. Patient was admitted on 01/18 for cholecystitis, with negative HIDA scan. Plan was for elective outpatient cholecystectomy. Patient received cardio clearance from Dr. London for the procedure. Admitted for symptomatic cholelithiasis. Plan: Cholelithiasis Cardiology consulted on previous admission - Dr. London - Patient was cleared by Cardio on 01/19/18 for surgery Surgery consulted - Dr. Moore - help appreciated Imaging from previous admission on 01/18/18 Ab US: Cholelithiasis with mild gallbladder wall thickening- edema with a tiny amount of free fluid adjacent to the gallbladder wall. . Rule out cholecystitis. HIDA: Normal Hepatobiliary Scan. The cystic duct is patent. CT Abdomen/ Pelvis: Cholelithiasis with apparent gallbladder wall thickening and mild pericholecystic infiltration and fluid. Findings most likely represent acute cholecystitis. Bilateral effusions right larger than left with mild bibasilar atelectasis ESRD on HD Nephrology consulted - Dr. Banks MWF Systolic Heart Failure LVEF 36% noted 06/[address] London on previous admission for surgery HTN Continue coreg, vasotec Hx HLD Lipid panel - wnl Will resume statin Hx Hypothyroidism TSH- 10.30 Free T4- 1.43 Will resume synthroid Prophylaxis GI PPX: Pepcid DVT PPX: SCDs Disposition: Anticipate discharge tomorrow is patient is stable post op, eating and normal bowel movements/ flatus. DW Makayla Guillen DO, PGY-1 <Lawanda Rg - Last Filed: 01/27/18 17:37> Objective - Vital Signs/Intake and Output Vital Signs (last 24 hours): Temp Pulse Resp BP Pulse Ox 97.2 F L 66 20 159/85 H 96 01/27/18 15:00 01/27/18 15:00 01/27/18 15:00 01/27/18 15:00 01/27/18 15:00 Intake and Output: 01/27/18 01/27/18 06:59 18:59 Intake Total 540 1030 Balance 540 1030 - Medications Medications: Current Medications Aspirin (Ecotrin) 81 mg PO DAILY [facility] Last Admin: 01/27/18 09:01 Dose: Not Given Calcium Acetate (Phoslo) 667 mg PO TIDCC [facility] Last Admin: 01/27/18 12:10 Dose: 667 mg Carvedilol (Coreg) 3.125 mg PO BID [facility] Last Admin: 01/27/18 09:01 Dose: Not Given Docusate Sodium (Colace) 100 mg PO TID [facility] Last Admin: 01/27/18 15:00 Dose: 100 mg Enalapril Maleate (Vasotec) 2.5 mg PO DAILY [facility] Last Admin: 01/27/18 09:01 Dose: Not Given Epoetin Michael (Procrit) 10,000 unit IV MWF [facility] Last Admin: 01/26/18 20:17 Dose: 10,000 unit Famotidine (Pepcid) 20 mg PO DAILY [facility] Last Admin: 01/27/18 09:01 Dose: Not Given Levothyroxine Sodium (Synthroid) 125 mcg PO DAILY@0630 [facility] Morphine Sulfate (Morphine) 2 mg IVP Q4 PRN PRN Reason: Pain, moderate (4-7) Ondansetron HCl (Zofran Inj) 4 mg IVP Q6 PRN PRN Reason: Nausea/Vomiting Oxycodone/Acetaminophen (Percocet 5/325 Mg Tab) 1 tab PO Q4H PRN PRN Reason: Pain, moderate (4-7) Stop: 01/30/18 10:54 Last Admin: 01/27/18 15:18 Dose: 1 tab Rosuvastatin Calcium (Crestor) 5 mg PO HS [facility] - Labs Labs: 01/27/18 05:01 01/27/18 05:01 PT 13.1 SECONDS (9.7-12.2) H 01/27/18 05:01 INR 1.2 01/27/18 05:01 APTT 32 SECONDS (21-34) 01/27/18 05:01 Attending/Attestation - Attestation I have personally seen and examined this patient.: Yes I have fully participated in the care of the patient.: Yes I have reviewed all pertinent clinical information, including history, physical exam and plan: Yes Notes (Text): Patient was seen and examined by me after surgery. No complain Discussed with the resident this morning. We will follow surgery Possible discharge tomorrow I agree with the documentation of the resident's assessment and the plan.
--- NOTE | 2018-01-27 12:42 | CP.PCM.CON ---
History of Present Illness - History of Present Illness History of Present Illness: HPI: Mr. Jude Coffman is a 67 year old male with PMHx as listed below who presents to the ED with abdominal pain. Patient was admitted on 01/18 for cholecystitis, with negative HIDA scan. Plan was for elective outpatient cholecystectomy. Patient received cardio clearance from Dr. London for the procedure. Patient did not follow up in the clinic to make an appointment with Dr. Simon. He returns due to abdominal pain, nausea, dry heaving (6 episodes) that started the night prior to admission. He reports the pain is sharp, intermittent and causes him to have nausea, resulting in him dry heaving. Pt had a lap coholecystectomy this am, he was dialyzed last night. PMHx: Systolic HF with last known EF of 36% (2016), HTN, ESRD on HD MWF, hypothyroidism, hyperlipidemia PSHx: Left AV fistula Meds: As per MAR Allergies: NKDA SH: Denies Smoking, eoth use, illicit drug use, unemployed lives with and children FH: sister who recently from Renal failure Review of Systems - Review of Systems All systems: reviewed and no additional remarkable complaints except (as per hpi ) Past Patient History - Infectious Disease Hx of Infectious Diseases: None - Past Medical History & Family History Past Medical History?: Yes - Past Social History Smoking Status: Former Smoker - CARDIAC Hx Atrial Fibrillation: No Hx Cardia Arrhythmia: No Hx Congestive Heart Failure: No Hx Hypercholesterolemia: No Hx Hypertension: Yes Hx Mitral Valve Prolapse: No Hx Pacemaker: No Hx Peripheral Edema: Yes (left arm and hand edema) - PULMONARY Hx Respiratory Disorders: No - NEUROLOGICAL Hx Alzheimer's Disease: No Hx Dementia: No Hx Migraine: No Hx Multiple Sclerosis: No Hx Parkinson's Disease: No Hx Seizures: No Hx Transient Ischemic Attacks (TIA): No - HEENT Hx HEENT Problems: No Hx Blind: No Hx Cataracts: No Hx Deafness: No Hx Difficulty Chewing: No Hx Epistaxis: No Hx Glaucoma: No Hx Macular Degeneration: No - RENAL Hx Chronic Kidney Disease: Yes Hx Kidney Stones: No - ENDOCRINE/METABOLIC Hx Hyperthyroidism: No Hx Hypothyroidism: Yes - HEMATOLOGICAL/ONCOLOGICAL Hx Anemia: No Hx Human Immunodeficiency Virus (HIV): No Hx Sickle Cell Disease: No - INTEGUMENTARY Hx Basil Cell: No Hx Wyatt: No Hx Cellulitis: No Hx Eczema: No Hx Melanoma: No Hx Psoriasis: No Hx Squamous Cell: No - MUSCULOSKELETAL/RHEUMATOLOGICAL Hx Arthritis: Yes Hx Fractures: No Hx Osteoporosis: No Hx Rheumatoid Arthritis: No - GASTROINTESTINAL Hx Crohn's Disease: No Hx Diverticulitis: No Hx Gall Bladder Disease: No Hx Gastritis: No - GENITOURINARY/GYNECOLOGICAL Hx Sexually Transmitted Disorders: No - PSYCHIATRIC Hx Anxiety: No Hx Bipolar Disorder: No Hx Depression: No Hx Paranoia: No Hx Post Traumatic Stress Disorder: No Hx Schizophrenia: No Hx Substance Use: No - SURGICAL HISTORY Hx Appendectomy: No Hx Carotid Endarterectomy: No Hx Cholecystectomy: No Hx Coronary Artery Bypass Graft: No Hx Coronary Stent: No Hx Tonsillectomy: No - ANESTHESIA Hx Anesthesia: Yes Hx Anesthesia Reactions: Yes Hx Malignant Hyperthermia: No Meds Allergies/Adverse Reactions: Allergies Allergy/AdvReac Type Severity Reaction Status Date / Time No Known Allergies Allergy Verified 01/26/18 08:56 - Medications Medications: Current Medications Aspirin (Ecotrin) 81 mg PO DAILY [facility] Last Admin: 01/27/18 09:01 Dose: Not Given Calcium Acetate (Phoslo) 667 mg PO TIDCC [facility] Last Admin: 01/27/18 12:10 Dose: 667 mg Carvedilol (Coreg) 3.125 mg PO BID [facility] Last Admin: 01/27/18 09:01 Dose: Not Given Docusate Sodium (Colace) 100 mg PO TID [facility] Last Admin: 01/27/18 09:00 Dose: Not Given Enalapril Maleate (Vasotec) 2.5 mg PO DAILY [facility] Last Admin: 01/27/18 09:01 Dose: Not Given Epoetin Michael (Procrit) 10,000 unit IV MWF [facility] Last Admin: 01/26/18 20:17 Dose: 10,000 unit Famotidine (Pepcid) 20 mg PO DAILY [facility] Last Admin: 01/27/18 09:01 Dose: Not Given Levothyroxine Sodium (Synthroid) 125 mcg PO DAILY@0630 [facility] Morphine Sulfate (Morphine) 2 mg IVP Q4 PRN PRN Reason: Pain, moderate (4-7) Ondansetron HCl (Zofran Inj) 4 mg IVP Q6 PRN PRN Reason: Nausea/Vomiting Oxycodone/Acetaminophen (Percocet 5/325 Mg Tab) 1 tab PO Q4H PRN PRN Reason: Pain, moderate (4-7) Stop: 01/30/18 10:54 Rosuvastatin Calcium (Crestor) 5 mg PO HS [facility] Physical Exam - Constitutional Appears: Non-toxic, No Acute Distress - Head Exam Head Exam: NORMAL INSPECTION, NORMOCEPHALIC - Eye Exam Eye Exam: Normal appearance, PERRL - ENT Exam ENT Exam: Mucous Membranes Moist, Normal Exam - Neck Exam Neck exam: Positive for: Normal Inspection - Respiratory Exam Respiratory Exam: Clear to Auscultation Bilateral, NORMAL BREATHING PATTERN - Cardiovascular Exam Cardiovascular Exam: REGULAR RHYTHM, RRR - GI/Abdominal Exam GI & Abdominal Exam: Distended, Hypoactive Bowel Sounds, Soft - Extremities Exam Extremities exam: Positive for: normal inspection (lue avf) - Neurological Exam Neurological exam: Alert, Oriented x3 - Psychiatric Exam Psychiatric exam: Normal Affect - Skin Skin Exam: Dry, Intact Results - Vital Signs Recent Vital Signs: Last Vital Signs Temp 96 F L 01/27/18 12:17 Pulse 59 L 01/27/18 12:17 Resp 20 01/27/18 12:17 BP 146/79 01/27/18 12:17 Pulse Ox 96 01/27/18 12:17 - Labs Result Diagrams: 01/27/18 05:01 01/27/18 05:01 Labs: Laboratory Results - last 24 hr 01/26/18 01/26/18 01/26/18 10:23 17:26 21:20 WBC RBC Hgb Hct MCV MCH MCHC RDW Plt Count MPV Neut % (Auto) Lymph % (Auto) [place] % (Auto) Eos % (Auto) Baso % (Auto) Neut # (Auto) Lymph # (Auto) [place] # (Auto) Eos # (Auto) Baso # (Auto) PT INR APTT Sodium Potassium Chloride Carbon Dioxide Anion Gap BUN Creatinine Est GFR ( Amer) Est GFR (Non-Af Amer) POC Glucose (mg/dL) 105 64 L Random Glucose Calcium Phosphorus Magnesium Total Bilirubin AST ALT Alkaline Phosphatase Total Protein Albumin Globulin Albumin/Globulin Ratio Triglycerides Cholesterol LDL Cholesterol Direct HDL Cholesterol Free T4 TSH 3rd Generation Hep Bs Antigen Negative 01/26/18 01/26/18 01/27/18 21:22 21:47 05:01 WBC 4.5 L RBC 3.42 L Hgb 10.1 L Hct 30.3 L MCV 88.6 MCH 29.6 MCHC 33.4 RDW 15.4 H Plt Count 211 MPV 7.2 Neut % (Auto) 65.9 Lymph % (Auto) 22.6 [place] % (Auto) 6.5 Eos % (Auto) 2.8 Baso % (Auto) 2.2 H Neut # (Auto) 3.0 Lymph # (Auto) 1.0 [place] # (Auto) 0.3 Eos # (Auto) 0.1 Baso # (Auto) 0.1 PT INR APTT Sodium Potassium Chloride Carbon Dioxide Anion Gap BUN Creatinine Est GFR ( Amer) Est GFR (Non-Af Amer) POC Glucose (mg/dL) 63 L 111 H Random Glucose Calcium Phosphorus Magnesium Total Bilirubin AST ALT Alkaline Phosphatase Total Protein Albumin Globulin Albumin/Globulin Ratio Triglycerides Cholesterol LDL Cholesterol Direct HDL Cholesterol Free T4 TSH 3rd Generation Hep Bs Antigen 01/27/18 01/27/18 01/27/18 05:01 05:01 05:01 WBC RBC Hgb Hct MCV MCH MCHC RDW Plt Count MPV Neut % (Auto) Lymph % (Auto) [place] % (Auto) Eos % (Auto) Baso % (Auto) Neut # (Auto) Lymph # (Auto) [place] # (Auto) Eos # (Auto) Baso # (Auto) PT 13.1 H INR 1.2 APTT 32 Sodium 136 Potassium 4.5 Chloride 93 L Carbon Dioxide 30 Anion Gap 17 BUN 27 H Creatinine 5.1 H Est GFR ( Amer) 14 Est GFR (Non-Af Amer) 11 POC Glucose (mg/dL) Random Glucose 79 Calcium 8.2 L Phosphorus 4.9 H Magnesium 2.1 Total Bilirubin 0.6 AST 40 ALT 47 Alkaline Phosphatase 63 Total Protein 6.2 L Albumin 3.6 Globulin 2.7 Albumin/Globulin Ratio 1.3 Triglycerides 87 D Cholesterol 132 LDL Cholesterol Direct 75 HDL Cholesterol 32 Free T4 1.43 TSH 3rd Generation 10.30 H Hep Bs Antigen Assessment & Plan (1) Abdominal pain Status: Acute (2) Cholecystitis Status: Acute (3) ESRD (end stage renal disease) Status: Acute (4) ESRD (end stage renal disease) Status: Chronic (5) Hypertension Status: Chronic - Assessment and Plan (Free Text) Assessment: s/p cholecystectomy maintain hd mwf bp controlled electrolytes acceptable chong
--- NOTE | 2018-01-27 12:46 | CARD ---
APPROVED REPORT EKG Measurement Heart [id number] <Conclusion> Normal sinus rhythm Prolonged QT Abnormal ECG
[2018-01-27] MEDS: Oxycodone/Acetaminophen 5/325 mg Tab PO PRN (15:18)
[2018-01-28] MEDS: Oxycodone/Acetaminophen 5/325 mg Tab PO PRN (00:40)
--- NOTE | 2018-01-28 01:02 | OP ---
PROCEDURE DATE: 01/27/2018 PREOPERATIVE DIAGNOSES: Chronic cholecystitis and cholelithiasis. POSTOPERATIVE DIAGNOSES: Chronic cholecystitis and cholelithiasis. PROCEDURE: Laparoscopic cholecystectomy. SURGEON: Chantal Moore MD ASSISTANTS: Dr. Cooley and Dr. Nolasco. TYPE OF ANESTHESIA: General. DESCRIPTION OF PROCEDURE: With the patient in the supine position under adequate general anesthesia, the abdomen was prepped and draped in the usual sterile manner. Veress needle puncture was performed at the umbilicus with insufflation to 15 cm of water pressure of CO2 and a 10-mm trocar was inserted via a supraumbilical incision. Under direct vision, additional trocars were inserted in the epigastrium and right costal margin. The gallbladder was visualized. It was not distended or acutely inflamed. However, there were omental adhesions to the peritoneal surface consistent with recent inflammation. The gallbladder fundus was grasped and elevated and the omental adhesions were taken down to expose the area of the infundibulum. The infundibulum was grasped and retracted laterally and the cystic duct was identified and dissected. The cystic duct was cleared down towards the junction with the common bile duct and noted anteriorly and posteriorly to be entering directly into the gallbladder for a view of safety. The cystic duct was then triply clipped and divided. The cystic artery was similarly identified and dissected and the cystic artery was triply clipped and divided. The gallbladder was dissected free of the liver bed using electrocautery. The liver bed was inspected for hemostasis and the dissection was completed. The gallbladder was placed in a specimen retrieval bag and removed via the umbilical port site. It was noted to contain multiple small stones. The right upper quadrant was irrigated and suctioned. The pneumoperitoneum was released and the trocars removed. The umbilical port site was closed with a evxmnk-[id number] fascial suture of 0 Vicryl. All incisions were closed with subcuticular sutures of 4-0 Monocryl and Steri-Strips. Dry sterile dressings were applied. The patient tolerated the procedure well and transferred to the recovery room in stable condition. Estimated blood loss for the procedure was 10 mL. Chantal Moore MD [facility] # [id number] P[place]
[2018-01-28] MEDS: Levothyroxine 125 MCG TAB PO SCH (05:50)
[2018-01-28 07:58] LABS: BASO # 0.1 K/uL (0.0-0.2); EOS # 0.2 K/uL (0.0-0.7); EOS % 2.7 % (0.0-4.0); HEMOGLOBIN 10.6 g/dL (12.0-18.0); LYMPH # 1.1 K/uL (1.0-4.3); LYMPH % 14.4 % (20.0-40.0); MEAN CELL VOLUME 89.4 fL (80.0-94.0); MEAN CORPUSCULAR HGB CONC 33.6 g/dL (33.0-37.0); MEAN PLATELET VOLUME 7.6 fL (7.2-11.7); MONO # 0.6 K/uL (0.0-0.8); MONO % 7.8 % (0.0-10.0); NEUT # 5.7 K/uL (1.8-7.0); NEUT % 74.1 % (50.0-75.0); RBC 3.53 Mil/uL (4.40-5.90); RED CELL DISTRIBUTION WIDTH 15.3 % (11.5-14.5)
[2018-01-28 08:02] LABS: WHITE BLOOD COUNT 7.6 K/uL (4.8-10.8)
[2018-01-28 08:17] LABS: ALB/GLOB RATIO 1.4 (1.0-2.1); ALBUMIN 3.8 g/dL (3.5-5.0); CALCIUM 8.5 mg/dl (8.6-10.4)
--- NOTE | 2018-01-28 08:34 | CP.PCM.PN ---
Subjective - Date & Time of Evaluation Date of Evaluation: 01/28/18 Time of Evaluation: 08:32 - Subjective Subjective: some complaints of urinary retention abdomen feels bloated cough+ appetite fair, on diet no fever or chills no rash no headache no arthralgias no sinus pain Objective - Vital Signs/Intake and Output Vital Signs (last 24 hours): Temp Pulse Resp BP Pulse Ox 97.8 F 83 20 162/89 H 96 01/28/18 06:00 01/28/18 06:00 01/28/18 06:00 01/28/18 06:00 01/28/18 06:00 Intake and Output: 01/28/18 01/28/18 06:59 18:59 Intake Total 400 Output Total 350 Balance 50 - Medications Medications: Current Medications Aspirin (Ecotrin) 81 mg PO DAILY [facility] Last Admin: 01/27/18 09:01 Dose: Not Given Calcium Acetate (Phoslo) 667 mg PO TIDCC [facility] Last Admin: 01/27/18 17:46 Dose: 667 mg Carvedilol (Coreg) 3.125 mg PO BID [facility] Last Admin: 01/27/18 17:46 Dose: 3.125 mg Docusate Sodium (Colace) 100 mg PO TID [facility] Last Admin: 01/27/18 17:46 Dose: 100 mg Enalapril Maleate (Vasotec) 2.5 mg PO DAILY [facility] Last Admin: 01/27/18 09:01 Dose: Not Given Epoetin Michael (Procrit) 10,000 unit IV MWF [facility] Last Admin: 01/26/18 20:17 Dose: 10,000 unit Famotidine (Pepcid) 20 mg PO DAILY [facility] Last Admin: 01/27/18 09:01 Dose: Not Given Levothyroxine Sodium (Synthroid) 125 mcg PO DAILY@0630 [facility] Last Admin: 01/28/18 05:50 Dose: 125 mcg Morphine Sulfate (Morphine) 2 mg IVP Q4 PRN PRN Reason: Pain, moderate (4-7) Ondansetron HCl (Zofran Inj) 4 mg IVP Q6 PRN PRN Reason: Nausea/Vomiting Oxycodone/Acetaminophen (Percocet 5/325 Mg Tab) 1 tab PO Q4H PRN PRN Reason: Pain, moderate (4-7) Stop: 01/30/18 10:54 Last Admin: 01/28/18 00:40 Dose: 1 tab Rosuvastatin Calcium (Crestor) 5 mg PO HS [facility] Last Admin: 01/27/18 21:29 Dose: 5 mg Tamsulosin HCl (Flomax) 0.4 mg PO DAILY [facility] - Labs Labs: 01/28/18 07:43 01/28/18 07:43 PT 13.1 SECONDS (9.7-12.2) H 01/27/18 05:01 INR 1.2 01/27/18 05:01 APTT 32 SECONDS (21-34) 01/27/18 05:01 - Constitutional Appears: No Acute Distress, Chronically Ill - Eye Exam Eye Exam: EOMI, Normal appearance - ENT Exam ENT Exam: Mucous Membranes Moist - Neck Exam Neck Exam: Full ROM. absent: Lymphadenopathy - Respiratory Exam Respiratory Exam: Rhonchi. absent: Accessory Muscle Use - Cardiovascular Exam Cardiovascular Exam: REGULAR RHYTHM. absent: Rubs - GI/Abdominal Exam GI & Abdominal Exam: Distended, Tenderness. absent: Rebound - Extremities Exam Extremities Exam: absent: Pedal Edema - Neurological Exam Neurological Exam: Alert, Awake Assessment and Plan - Assessment and Plan (Free Text) Assessment: esrd post cholecystectomy, on diet cough urinary retention HD today wilson pulmonary toilet
[2018-01-28] MEDS ORDERED: Albuterol 0.083% Inhal Sol (2.5 mg/3 mL) UD INH PRN (08:36)
--- NOTE | 2018-01-28 10:30 | CP.PCM.PN ---
Addendum entered and electronically signed by Makayla Corona DO 01/28/18 12:39 : Patient refuses follow, bladder scan after patient voided - was 120/130 cc. Will continue to monitor overnight. If retention does not persist, will discharge tomorrow. Original Note: <Makayla Corona - Last Filed: 01/28/18 10:27> Subjective - Date & Time of Evaluation Date of Evaluation: 01/28/18 Time of Evaluation: 09:00 - Subjective Subjective: Medicine Progress Note for Hospitalist Service- Dr. Rg Patient was seen and examined at bedside. Patient is s/p lap nickolas. Reports abdominal distention and difficulty urinating. Bladder scan showed he was retaining 400ml and 350ml with 4 hours in between. Denied fever, chills, shortness of breath, chest pain, n/v/d/c. Objective - Vital Signs/Intake and Output Vital Signs (last 24 hours): Temp Pulse Resp BP Pulse Ox 97.8 F 83 20 165/81 H 96 01/28/18 06:00 01/28/18 06:00 01/28/18 06:00 01/28/18 09:46 01/28/18 06:00 Intake and Output: 01/28/18 01/28/18 06:59 18:59 Intake Total 400 Output Total 350 Balance 50 - Medications Medications: Current Medications Albuterol Sulfate (Albuterol 0.083% Inhal Katelyn (2.5 Mg/3 Ml) Ud) 2.5 mg INH RQ6 PRN PRN Reason: Cough and congestion Aspirin (Ecotrin) 81 mg PO DAILY [facility] Last Admin: 01/28/18 09:46 Dose: 81 mg Calcium Acetate (Phoslo) 667 mg PO TIDCC [facility] Last Admin: 01/28/18 08:55 Dose: 667 mg Carvedilol (Coreg) 3.125 mg PO BID [facility] Last Admin: 01/27/18 17:46 Dose: 3.125 mg Docusate Sodium (Colace) 100 mg PO TID [facility] Last Admin: 01/28/18 09:48 Dose: 100 mg Enalapril Maleate (Vasotec) 2.5 mg PO DAILY [facility] Last Admin: 01/28/18 09:46 Dose: 2.5 mg Epoetin Michael (Procrit) 10,000 unit IV MWF [facility] Last Admin: 01/26/18 20:17 Dose: 10,000 unit Famotidine (Pepcid) 20 mg PO DAILY [facility] Last Admin: 01/28/18 09:46 Dose: 20 mg Levothyroxine Sodium (Synthroid) 125 mcg PO DAILY@0630 [facility] Last Admin: 01/28/18 05:50 Dose: 125 mcg Morphine Sulfate (Morphine) 2 mg IVP Q4 PRN PRN Reason: Pain, moderate (4-7) Ondansetron HCl (Zofran Inj) 4 mg IVP Q6 PRN PRN Reason: Nausea/Vomiting Oxycodone/Acetaminophen (Percocet 5/325 Mg Tab) 1 tab PO Q4H PRN PRN Reason: Pain, moderate (4-7) Stop: 01/30/18 10:54 Last Admin: 01/28/18 00:40 Dose: 1 tab Rosuvastatin Calcium (Crestor) 5 mg PO [facility] Last Admin: 01/27/18 21:29 Dose: 5 mg Tamsulosin HCl (Flomax) 0.4 mg PO DAILY [facility] Last Admin: 01/28/18 09:46 Dose: 0.4 mg - Labs Labs: 01/28/18 07:43 01/28/18 07:43 PT 13.1 SECONDS (9.7-12.2) H 01/27/18 05:01 INR 1.2 01/27/18 05:01 APTT 32 SECONDS (21-34) 01/27/18 05:01 - Constitutional Appears: No Acute Distress - Head Exam Head Exam: NORMAL INSPECTION, NORMOCEPHALIC - Eye Exam Eye Exam: EOMI, Normal appearance, PERRL Pupil Exam: NORMAL ACCOMODATION - ENT Exam ENT Exam: Mucous Membranes Moist - Respiratory Exam Respiratory Exam: Clear to Ausculation Bilateral, NORMAL BREATHING PATTERN - Cardiovascular Exam Cardiovascular Exam: REGULAR RHYTHM - GI/Abdominal Exam GI & Abdominal Exam: Distended (TTP suprapubic ), Soft, Tenderness (TTP at surgical site from lap nickolas, dressings C/D/I ), Normal Bowel Sounds - Rectal Exam Rectal Exam: Deferred - Extremities Exam Extremities Exam: Normal Inspection. absent: Pedal Edema, Tenderness - Neurological Exam Neurological Exam: Alert, Awake, Oriented x3 - Psychiatric Exam Psychiatric exam: Normal Affect, Normal Mood - Skin Skin Exam: Dry, Intact, Normal Color, Warm Assessment and Plan - Assessment and Plan (Free Text) Assessment: Mr. Jude Coffman is a 67 year old male with PMHx as listed below who presents to the ED with abdominal pain. Patient was admitted on 01/18 for cholecystitis, with negative HIDA scan. Plan was for elective outpatient cholecystectomy. Patient received cardio clearance from Dr. London for the procedure. Admitted for symptomatic cholelithiasis. S/P lap nickolas POD #1 - Plan: Urinary Retention s/p lap nickolas Bladder scan overnight showed retention of 400cc and 350cc 4 hours apart, with subsequent straight cath, only removing 200cc and 150 cc, respectively. Likely 2/2 anesthesia. As per Nephrology, recommend wilson catheter Ordered UA/UC due to symptoms of dysuria Started Flomax Cholelithiasis S/P lap nickolas 01/26/18 Cardiology consulted on previous admission - Dr. London - Patient was cleared by Cardio on 01/19/18 for surgery Surgery consulted - Dr. Moore - help appreciated S/P lap nickolas - clean procedure, no need for PO antibiotics- need to follow up with Dr. Moore in 1-2 weeks for post op check. Imaging from previous admission on 01/18/18 Ab US: Cholelithiasis with mild gallbladder wall thickening- edema with a tiny amount of free fluid adjacent to the gallbladder wall. . Rule out cholecystitis. HIDA: Normal Hepatobiliary Scan. The cystic duct is patent. CT Abdomen/ Pelvis: Cholelithiasis with apparent gallbladder wall thickening and mild pericholecystic infiltration and fluid. Findings most likely represent acute cholecystitis. Bilateral effusions right larger than left with mild bibasilar atelectasis ESRD on HD Nephrology consulted - Dr. Banks MWF Systolic Heart Failure LVEF 36% noted 06/[address] London on previous admission for surgery HTN Continue coreg, vasotec Hx HLD Lipid panel - wnl Will resume statin Hx Hypothyroidism TSH- 10.30 Free T4- 1.43 Will resume synthroid Prophylaxis GI PPX: Pepcid DVT PPX: SCDs Disposition: Will need to monitor overnight, conduct a voiding trial to determine if patient is still retaining. DW Makayla Guillen DO, PGY-1 <Lawanda Rg - Last Filed: 01/28/18 16:24> Objective - Vital Signs/Intake and Output Vital Signs (last 24 hours): Temp Pulse Resp BP Pulse Ox 98.1 F 80 21 165/81 H 95 01/28/18 07:00 01/28/18 07:00 01/28/18 07:00 01/28/18 09:46 01/28/18 07:00 Intake and Output: 01/28/18 01/28/18 06:59 18:59 Intake Total 400 Output Total 350 Balance 50 - Medications Medications: Current Medications Albuterol Sulfate (Albuterol 0.083% Inhal Katelyn (2.5 Mg/3 Ml) Ud) 2.5 mg INH RQ6 PRN PRN Reason: Cough and congestion Aspirin (Ecotrin) 81 mg PO DAILY [facility] Last Admin: 01/28/18 09:46 Dose: 81 mg Calcium Acetate (Phoslo) 667 mg PO TIDCC [facility] Last Admin: 01/28/18 12:25 Dose: 667 mg Carvedilol (Coreg) 3.125 mg PO BID [facility] Last Admin: 01/28/18 09:48 Dose: 3.125 mg Docusate Sodium (Colace) 100 mg PO TID [facility] Last Admin: 01/28/18 14:22 Dose: Not Given Enalapril Maleate (Vasotec) 2.5 mg PO DAILY [facility] Last Admin: 01/28/18 09:46 Dose: 2.5 mg Epoetin Michael (Procrit) 10,000 unit IV MWF [facility] Last Admin: 01/26/18 20:17 Dose: 10,000 unit Famotidine (Pepcid) 20 mg PO DAILY [facility] Last Admin: 01/28/18 09:46 Dose: 20 mg Levothyroxine Sodium (Synthroid) 125 mcg PO DAILY@0630 [facility] Last Admin: 01/28/18 05:50 Dose: 125 mcg Morphine Sulfate (Morphine) 2 mg IVP Q4 PRN PRN Reason: Pain, moderate (4-7) Ondansetron HCl (Zofran Inj) 4 mg IVP Q6 PRN PRN Reason: Nausea/Vomiting Oxycodone/Acetaminophen (Percocet 5/325 Mg Tab) 1 tab PO Q4H PRN PRN Reason: Pain, moderate (4-7) Stop: 01/30/18 10:54 Last Admin: 01/28/18 00:40 Dose: 1 tab Rosuvastatin Calcium (Crestor) 5 mg PO HS [facility] Last Admin: 01/27/18 21:29 Dose: 5 mg Tamsulosin HCl (Flomax) 0.4 mg PO DAILY [facility] Last Admin: 01/28/18 09:46 Dose: 0.4 mg - Labs Labs: 01/28/18 07:43 01/28/18 07:43 PT 13.1 SECONDS (9.7-12.2) H 01/27/18 05:01 INR 1.2 01/27/18 05:01 APTT 32 SECONDS (21-34) 01/27/18 05:01 Attending/Attestation - Attestation I have personally seen and examined this patient.: Yes I have fully participated in the care of the patient.: Yes I have reviewed all pertinent clinical information, including history, physical exam and plan: Yes Notes (Text): Seen and examined. Patient was retaining urine and complaining of difficult to urinate. Patient has Discussed with resident. we will observe overnight. follow up in the morning. If retaining will need faley cath on discharge. Continue flomax I agree with the resident's documentation of the assessment and the plan
--- NOTE | 2018-01-28 13:05 | CP.PCM.PN ---
Subjective - Date & Time of Evaluation Date of Evaluation: 01/28/18 Time of Evaluation: 10:10 - Subjective Subjective: General Surgery- Dr. Moore Patient seen and examined at bedside this AM. No acute events overnight. appropriately tender around incisions. pain well controlled. tolerating current diet. Denies Nausea, vomiting, fevers, chills, chest pain, shortness of breath, nausea , vomiting, diarrhea. Objective - Vital Signs/Intake and Output Vital Signs (last 24 hours): Temp Pulse Resp BP Pulse Ox 98.1 F 80 21 165/81 H 95 01/28/18 07:00 01/28/18 07:00 01/28/18 07:00 01/28/18 09:46 01/28/18 07:00 Intake and Output: 01/28/18 01/28/18 06:59 18:59 Intake Total 400 Output Total 350 Balance 50 - Medications Medications: Current Medications Albuterol Sulfate (Albuterol 0.083% Inhal Katelyn (2.5 Mg/3 Ml) Ud) 2.5 mg INH RQ6 PRN PRN Reason: Cough and congestion Aspirin (Ecotrin) 81 mg PO DAILY [facility] Last Admin: 01/28/18 09:46 Dose: 81 mg Calcium Acetate (Phoslo) 667 mg PO TIDCC [facility] Last Admin: 01/28/18 12:25 Dose: 667 mg Carvedilol (Coreg) 3.125 mg PO BID [facility] Last Admin: 01/28/18 09:48 Dose: 3.125 mg Docusate Sodium (Colace) 100 mg PO TID [facility] Last Admin: 01/28/18 09:48 Dose: 100 mg Enalapril Maleate (Vasotec) 2.5 mg PO DAILY [facility] Last Admin: 01/28/18 09:46 Dose: 2.5 mg Epoetin Michael (Procrit) 10,000 unit IV MWF [facility] Last Admin: 01/26/18 20:17 Dose: 10,000 unit Famotidine (Pepcid) 20 mg PO DAILY [facility] Last Admin: 01/28/18 09:46 Dose: 20 mg Levothyroxine Sodium (Synthroid) 125 mcg PO DAILY@0630 [facility] Last Admin: 01/28/18 05:50 Dose: 125 mcg Morphine Sulfate (Morphine) 2 mg IVP Q4 PRN PRN Reason: Pain, moderate (4-7) Ondansetron HCl (Zofran Inj) 4 mg IVP Q6 PRN PRN Reason: Nausea/Vomiting Oxycodone/Acetaminophen (Percocet 5/325 Mg Tab) 1 tab PO Q4H PRN PRN Reason: Pain, moderate (4-7) Stop: 01/30/18 10:54 Last Admin: 01/28/18 00:40 Dose: 1 tab Rosuvastatin Calcium (Crestor) 5 mg PO HS [facility] Last Admin: 01/27/18 21:29 Dose: 5 mg Tamsulosin HCl (Flomax) 0.4 mg PO DAILY [facility] Last Admin: 01/28/18 09:46 Dose: 0.4 mg - Labs Labs: 01/28/18 07:43 01/28/18 07:43 PT 13.1 SECONDS (9.7-12.2) H 01/27/18 05:01 INR 1.2 01/27/18 05:01 APTT 32 SECONDS (21-34) 01/27/18 05:01 - Constitutional Appears: Non-toxic, No Acute Distress - Eye Exam Eye Exam: EOMI. absent: Scleral icterus - ENT Exam ENT Exam: Mucous Membranes Moist - Respiratory Exam Respiratory Exam: NORMAL BREATHING PATTERN. absent: Accessory Muscle Use, Respiratory Distress - Cardiovascular Exam Cardiovascular Exam: +S1, +S2. absent: Bradycardia, Tachycardia - GI/Abdominal Exam GI & Abdominal Exam: Soft, Tenderness (appropriatley tender aorund incisions). absent: Distended, Firm, Guarding, Rigid Additional comments: dressing C/D/I - Extremities Exam Extremities Exam: absent: Calf Tenderness - Neurological Exam Neurological Exam: Alert, Awake, Oriented x3 - Skin Skin Exam: Intact, Warm Assessment and Plan - Assessment and Plan (Free Text) Assessment: 67M s/p laparoscopic cholecystectomy POD#1 Plan: - advance to regular diet - encourage ambulation - can remove dressings and shower tomorrow - follow up w/ Dr. Moore in office in 1-2 weeks - cleared for discharge from a surgical standpoint - discussed w/ Dr. Moore surgical attending PGY1
[2018-01-28 18:47] LABS: SQUAMOUS EPITHIAL < 1 /hpf (0-5); URINE BACTERIA RARE (<OCC); URINE BILIRUBIN NEGATIVE (NEGATIVE); URINE BLOOD 3+ (NEGATIVE); URINE CLARITY Hazy (Clear); URINE COLOR Straw (YELLOW); URINE GLUCOSE (UA) 2+ mg/dL (Normal); URINE LEUKOCYTE ESTERASE 1+ Leu/uL (Negative); URINE PROTEIN 2+ mg/dL (NEGATIVE); URINE UROBILINOGEN NORMAL mg/dL (0.2-1.0)
[2018-01-28] MEDS: Epoetin Alfa 10,000 unit/ml Dialysis IV SCH (18:51)
[2018-01-29 00:06] VITALS: RESP 20
[2018-01-29] MEDS: Levothyroxine 125 MCG TAB PO SCH (05:55)
[2018-01-29 07:25] LABS: BASO # 0.1 K/uL (0.0-0.2); BASO % 0.9 % (0.0-2.0); EOS # 0.3 K/uL (0.0-0.7); EOS % 5.5 % (0.0-4.0); HEMOGLOBIN 10.3 g/dL (12.0-18.0); LYMPH # 0.9 K/uL (1.0-4.3); LYMPH % 14.5 % (20.0-40.0); MEAN CELL VOLUME 88.6 fL (80.0-94.0); MEAN CORPUSCULAR HEMOGLOBIN 30.2 pg (27.0-31.0); MEAN CORPUSCULAR HGB CONC 34.1 g/dL (33.0-37.0); MONO # 0.5 K/uL (0.0-0.8); MONO % 8.5 % (0.0-10.0); NEUT # 4.4 K/uL (1.8-7.0); NEUT % 70.6 % (50.0-75.0); NRBC % 0.1 % (0.0-2.0); RBC 3.41 Mil/uL (4.40-5.90); RED CELL DISTRIBUTION WIDTH 15.4 % (11.5-14.5); WHITE BLOOD COUNT 6.3 K/uL (4.8-10.8)
[2018-01-29 07:37] LABS: ALB/GLOB RATIO 1.2 (1.0-2.1); ALBUMIN 3.3 g/dL (3.5-5.0); CALCIUM 8.5 mg/dl (8.6-10.4)
[2018-01-29 08:17] VITALS: PULSE 81; TEMP 98.5; O2SAT 99
--- NOTE | 2018-01-29 09:11 | CP.PCM.DIS ---
<Makayla Corona - Last Filed: 01/29/18 09:36> Provider - Provider Date of Admission: 01/26/18 12:01 Attending physician: Lawanda Rg MD Time Spent in preparation of Discharge (in minutes): 55 Hospital Course - Lab Results Lab Results: Micro Results 01/26/18 11:30 Blood-Venous Blood Culture - Preliminary NO GROWTH AFTER 48 HOURS 01/26/18 11:20 Blood-Venous Blood Culture - Preliminary NO GROWTH AFTER 48 HOURS Most Recent Lab Values WBC 6.3 K/uL (4.8-10.8) 01/29/18 07:14 RBC 3.41 Mil/uL (4.40-5.90) L 01/29/18 07:14 Hgb 10.3 g/dL (12.0-18.0) L 01/29/18 07:14 Hct 30.3 % (35.0-51.0) L 01/29/18 07:14 MCV 88.6 fL (80.0-94.0) 01/29/18 07:14 MCH 30.2 pg (27.0-31.0) 01/29/18 07:14 MCHC 34.1 g/dL (33.0-37.0) 01/29/18 07:14 RDW 15.4 % (11.5-14.5) H 01/29/18 07:14 Plt Count 205 K/uL (130-400) 01/29/18 07:14 MPV 8.0 fL (7.2-11.7) 01/29/18 07:14 Neut % (Auto) 70.6 % (50.0-75.0) 01/29/18 07:14 Lymph % (Auto) 14.5 % (20.0-40.0) L 01/29/18 07:14 Reynolds % (Auto) 8.5 % (0.0-10.0) 01/29/18 07:14 Eos % (Auto) 5.5 % (0.0-4.0) H 01/29/18 07:14 Baso % (Auto) 0.9 % (0.0-2.0) 01/29/18 07:14 Neut # (Auto) 4.4 K/uL (1.8-7.0) 01/29/18 07:14 Lymph # (Auto) 0.9 K/uL (1.0-4.3) L 01/29/18 07:14 Reynolds # (Auto) 0.5 K/uL (0.0-0.8) 01/29/18 07:14 Eos # (Auto) 0.3 K/uL (0.0-0.7) 01/29/18 07:14 Baso # (Auto) 0.1 K/uL (0.0-0.2) 01/29/18 07:14 PT 13.1 SECONDS (9.7-12.2) H 01/27/18 05:01 INR 1.2 01/27/18 05:01 APTT 32 SECONDS (21-34) 01/27/18 05:01 Sodium 133 mmol/L (132-148) 01/29/18 07:14 Potassium 4.2 mmol/L (3.6-5.2) 01/29/18 07:14 Chloride 93 mmol/L (98-107) L 01/29/18 07:14 Carbon Dioxide 29 mmol/L (22-30) 01/29/18 07:14 Anion Gap 16 (10-20) 01/29/18 07:14 BUN 18 mg/dL (9-20) 01/29/18 07:14 Creatinine 4.4 mg/dL (0.8-1.5) H 01/29/18 07:14 Est GFR ( Amer) 16 01/29/18 07:14 Est GFR (Non-Af Amer) 13 01/29/18 07:14 POC Glucose (mg/dL) 111 mg/dL (65-110) H 01/26/18 21:47 Random Glucose 89 mg/dL (75-110) 01/29/18 07:14 Calcium 8.5 mg/dl (8.6-10.4) L 01/29/18 07:14 Phosphorus 4.1 mg/dL (2.5-4.5) 01/29/18 07:14 Magnesium 1.9 mg/dL (1.6-2.3) 01/29/18 07:14 Total Bilirubin 0.9 mg/dL (0.2-1.3) 01/29/18 07:14 AST 30 U/L (17-59) 01/29/18 07:14 ALT 44 U/L (21-72) 01/29/18 07:14 Alkaline Phosphatase 66 U/L (38-126) 01/29/18 07:14 NT-Pro-B Natriuret Pep 51920 pg/mL (0-900) H 01/26/18 10:23 Total Protein 6.1 g/dL (6.3-8.3) L 01/29/18 07:14 Albumin 3.3 g/dL (3.5-5.0) L 01/29/18 07:14 Globulin 2.8 gm/dL (2.2-3.9) 01/29/18 07:14 Albumin/Globulin Ratio 1.2 (1.0-2.1) 01/29/18 07:14 Triglycerides 87 mg/dL (0-149) D 01/27/18 05:01 Cholesterol 132 mg/dL (0-199) 01/27/18 05:01 LDL Cholesterol Direct 75 mg/dL (0-129) 01/27/18 05:01 HDL Cholesterol 32 mg/dL (30-70) 01/27/18 05:01 Free T4 1.43 ng/dL (0.78-2.19) 01/27/18 05:01 TSH 3rd Generation 10.30 mIU/L (0.46-4.68) H 01/27/18 05:01 Urine Color Straw (YELLOW) 01/28/18 18:37 Urine Clarity Hazy (Clear) 01/28/18 18:37 Urine pH 9.0 (5.0-8.0) 01/28/18 18:37 Ur Specific [place] 1.006 (1.003-1.030) 01/28/18 18:37 Urine Protein 2+ mg/dL (NEGATIVE) H 01/28/18 18:37 Urine Glucose (UA) 2+ mg/dL (Normal) H 01/28/18 18:37 Urine Ketones Negative mg/dL (NEGATIVE) 01/28/18 18:37 Urine Blood 3+ (NEGATIVE) H 01/28/18 18:37 Urine Nitrate Negative (NEGATIVE) 01/28/18 18:37 Urine Bilirubin Negative (NEGATIVE) 01/28/18 18:37 Urine Urobilinogen Normal mg/dL (0.2-1.0) 01/28/18 18:37 Ur Leukocyte Esterase 1+ Kye/uL (Negative) H 01/28/18 18:37 Urine WBC (Auto) 18 /hpf (0-5) H 01/28/18 18:37 Urine RBC (Auto) 272 /hpf (0-3) H 01/28/18 18:37 Ur Squamous Epith Cells < 1 /hpf (0-5) 01/28/18 18:37 Urine Bacteria Rare (<OCC) 01/28/18 18:37 Hep Bs Antigen Negative (NEGATIVE) 01/26/18 10:23 - Hospital Course Hospital Course: Upon Admission: CC: abdominal pain HPI: Mr. Jude Coffman is a 67 year old male with PMHx as listed below who presents to the ED with abdominal pain. Patient was admitted on 01/18 for cholecystitis, with negative HIDA scan. Plan was for elective outpatient cholecystectomy. Patient received cardio clearance from Dr. London for the procedure. Patient did not follow up in the clinic to make an appointment with Dr. Simon. He returns today due to abdominal pain, nausea, dry heaving (6 episodes) that started the night prior to admission. He reports the pain is sharp, intermittent and causes him to have nausea, resulting in him dry heaving. Due to the persistent dry heaving, he reports pain during deep inspiration. Denied fever, chills, headache, chest pain, diarrhea, or urinary symptoms. PMHx: Systolic HF with last known EF of 36% (2017), HTN, ESRD on HD MWF, hypothyroidism, hyperlipidemia PSHx: Left AV fistula Meds: As per NOV Allergies: NKDA SH: Denies Smoking, eoth use, illicit drug use, unemployed lives with and children FH: sister who recently from Renal failure Nephrology: Darren Throughout Hospital Admission: Mr. Jude Coffman is a 67 year old male with PMHx as listed below who presents to the ED with abdominal pain. Patient was admitted on 01/18 for cholecystitis, with negative HIDA scan. Plan was for elective outpatient cholecystectomy. Patient received cardio clearance from Dr. London for the procedure. Admitted for symptomatic cholelithiasis. S/P lap nickolas - 01/26/18, stayed an extra night due to urinary retention which has resolved. Urinary Retention - resolved s/p lap nickolas Bladder scan overnight showed retention of 400cc and 350cc 4 hours apart, with subsequent straight cath, only removing 200cc and 150 cc, respectively. Likely 2/2 anesthesia. As per Nephrology, recommend wilson catheter Ordered UA/UC due to symptoms of dysuria - UA + - will DC with Cipro renally dosed Started Flomax Cholelithiasis S/P lap nickolas 01/26/18 Cardiology consulted on previous admission - Dr. London - Patient was cleared by Cardio on 01/19/18 for surgery Surgery consulted - Dr. Moore - help appreciated S/P lap nickolas - clean procedure, no need for PO antibiotics- need to follow up with Dr. Moore in 1-2 weeks for post op check. Imaging from previous admission on 01/18/18 Ab US: Cholelithiasis with mild gallbladder wall thickening- edema with a tiny amount of free fluid adjacent to the gallbladder wall. . Rule out cholecystitis. HIDA: Normal Hepatobiliary Scan. The cystic duct is patent. CT Abdomen/ Pelvis: Cholelithiasis with apparent gallbladder wall thickening and mild pericholecystic infiltration and fluid. Findings most likely represent acute cholecystitis. Bilateral effusions right larger than left with mild bibasilar atelectasis ESRD on HD Nephrology consulted - Dr. Banks MWF Systolic Heart Failure LVEF 36% noted 06/[address] London on previous admission for surgery HTN Continue coreg, vasotec Hx HLD Lipid panel - wnl Will resume statin Hx Hypothyroidism TSH- 10.30 Free T4- 1.43 Will resume synthroid Discharge Exam - Head Exam Head Exam: NORMAL INSPECTION, NORMOCEPHALIC - Eye Exam Eye Exam: EOMI, Normal appearance, PERRL Pupil Exam: NORMAL ACCOMODATION - ENT Exam ENT Exam: Mucous Membranes Moist, Normal Exam - Respiratory Exam Respiratory Exam: Clear to PA & Lateral, NORMAL BREATHING PATTERN. absent: Decreased Breath Sounds - Cardiovascular Exam Cardiovascular Exam: REGULAR RHYTHM, RRR - GI/Abdominal Exam GI & Abdominal Exam: Normal Bowel Sounds, Soft. absent: Distended Additional comments: dressing C/D/I - Rectal Exam Rectal Exam: Deferred - Extremities Exam Extremities exam: normal inspection, pedal pulses present - Neurological Exam Neurological exam: Alert, CN II-XII Intact, Oriented x3 - Psychiatric Exam Psychiatric exam: Normal Affect, Normal Mood - Skin Skin Exam: Dry, Intact, Normal Color, Warm Discharge Plan - Discharge Medications Prescriptions: Carvedilol [Coreg] 6.25 mg PO BID #60 tab Ciprofloxacin [Cipro] 500 mg PO DAILY #7 tab Enalapril Maleate [Vasotec] 2.5 mg PO DAILY #30 tab Levothyroxine [Synthroid] 125 mcg PO DAILY@0630 #30 tab Simvastatin 1 tab PO DAILY #30 tablet Tamsulosin [Flomax] 0.4 mg PO DAILY #30 cap - Follow Up Plan Condition: GOOD Disposition: HOME/ ROUTINE Instructions: Cholecystectomy (DC), Cholecystitis (DC) Additional Instructions: You recently had your gallbladder removed. You will need to change your diet by eating more fruits and vegetables and reducing the amount of fatty food you consume. You will need to first make an appointment with our [facility] in the basement at [facility]. You need to make an appointment to establish yourself with a primary care doctor. Dr. Makayla Corona is the medical physiologist who was taking care of you, if you would like to proceed with her, please make the appointment with her, otherwise you can see a different physician. Please call [phone] to make an appointment or physically go down to the basement and make the appointment in person in the clinic. You will also need to make an appointment with Surgery for a follow up, check up after surgery within 1-2 weeks. Please call [phone] to make an appointment or physically go down to the basement and make the appointment in person in the clinic. -- These are the following medications that you will need to take: Aspirin 81mg by mouth daily Simvastatin 10mg by mouth at night (for your cholesterol) Synthroid 125mcg by mouth daily ( for your thyroid) Coreg 6.25mg by mouth twice a day (for your blood pressure) Vasotec 2.5 by mouth daily (for your blood pressure) Ciprofloxacin 500mg by mouth daily for ONLY 7 days ( for your urinary tract infection) Please continue with your Friday, Friday, and Friday dialysis as scheduled. Please take care and be well. --- Recientemente le quitaron la vescula biliar. Tendr que cambiar rader dieta comiendo ms frutas y verduras y reduciendo la cantidad de alimentos grasos que consume. Necesitar marika hacer ceferino lety con nuestra [facility] Debe programar ceferino lety para establecerse con un mdico de atencin primaria. La Dra. Makayla Corona es la residente mdjacquie que estaba cuidando de usted, si desea continuar con mekhi, programe la lety con mekhi, de lo contrario, puede mariah a un mdico diferente. Llame al [phone] para programar ceferino lety o vaya fsicamente al stano y nicholas la lety en persona en la clnica. Tambin deber programar ceferino lety con [facility] para un seguimiento, control despu s de la ciruga dentro de 1-2 semanas. Llame al [phone] para programar ceferino lety o vaya fsicamente al stano y nicholas la lety en persona en la clnica. - Estos son los siguientes medicamentos que deber anita: Aspirina, 81 mg por va oral al da Simvastatina 10 mg por la boca por la noche (para rader colesterol) Synthroid 125mcg por va oral al da (para la tiroides) Coreg 6.25 mg por va oral dos veces al da (para la presin arterial) Vasotec 2.5 por la boca diariamente (para rader presin arterial) Ciprofloxacino 500 mg por va oral al da leon SLO 7 joyce (para rader infecci n del tracto urinario) Contine con rader dilisis de lunes, mircoles y viernes segn lo programado. Por favor cudate y estate marjan. Referrals: [facility] at [facility] [Outside] <Lawanda Rg - Last Filed: 01/29/18 16:28> Provider - Provider Date of Admission: 01/26/18 12:01 Attending physician: Lawanda Rg MD Hospital Course - Lab Results Lab Results: Micro Results 01/26/18 11:30 Blood-Venous Blood Culture - Preliminary NO GROWTH AFTER 3 DAYS 01/26/18 11:20 Blood-Venous Blood Culture - Preliminary NO GROWTH AFTER 3 DAYS Most Recent Lab Values WBC 6.3 K/uL (4.8-10.8) 01/29/18 07:14 RBC 3.41 Mil/uL (4.40-5.90) L 01/29/18 07:14 Hgb 10.3 g/dL (12.0-18.0) L 01/29/18 07:14 Hct 30.3 % (35.0-51.0) L 01/29/18 07:14 MCV 88.6 fL (80.0-94.0) 01/29/18 07:14 MCH 30.2 pg (27.0-31.0) 01/29/18 07:14 MCHC 34.1 g/dL (33.0-37.0) 01/29/18 07:14 RDW 15.4 % (11.5-14.5) H 01/29/18 07:14 Plt Count 205 K/uL (130-400) 01/29/18 07:14 MPV 8.0 fL (7.2-11.7) 01/29/18 07:14 Neut % (Auto) 70.6 % (50.0-75.0) 01/29/18 07:14 Lymph % (Auto) 14.5 % (20.0-40.0) L 01/29/18 07:14 Reynolds % (Auto) 8.5 % (0.0-10.0) 01/29/18 07:14 Eos % (Auto) 5.5 % (0.0-4.0) H 01/29/18 07:14 Baso % (Auto) 0.9 % (0.0-2.0) 01/29/18 07:14 Neut # (Auto) 4.4 K/uL (1.8-7.0) 01/29/18 07:14 Lymph # (Auto) 0.9 K/uL (1.0-4.3) L 01/29/18 07:14 Reynolds # (Auto) 0.5 K/uL (0.0-0.8) 01/29/18 07:14 Eos # (Auto) 0.3 K/uL (0.0-0.7) 01/29/18 07:14 Baso # (Auto) 0.1 K/uL (0.0-0.2) 01/29/18 07:14 PT 13.1 SECONDS (9.7-12.2) H 01/27/18 05:01 INR 1.2 01/27/18 05:01 APTT 32 SECONDS (21-34) 01/27/18 05:01 Sodium 133 mmol/L (132-148) 01/29/18 07:14 Potassium 4.2 mmol/L (3.6-5.2) 01/29/18 07:14 Chloride 93 mmol/L (98-107) L 01/29/18 07:14 Carbon Dioxide 29 mmol/L (22-30) 01/29/18 07:14 Anion Gap 16 (10-20) 01/29/18 07:14 BUN 18 mg/dL (9-20) 01/29/18 07:14 Creatinine 4.4 mg/dL (0.8-1.5) H 01/29/18 07:14 Est GFR ( Amer) 16 01/29/18 07:14 Est GFR (Non-Af Amer) 13 01/29/18 07:14 POC Glucose (mg/dL) 111 mg/dL (65-110) H 01/26/18 21:47 Random Glucose 89 mg/dL (75-110) 01/29/18 07:14 Calcium 8.5 mg/dl (8.6-10.4) L 01/29/18 07:14 Phosphorus 4.1 mg/dL (2.5-4.5) 01/29/18 07:14 Magnesium 1.9 mg/dL (1.6-2.3) 01/29/18 07:14 Total Bilirubin 0.9 mg/dL (0.2-1.3) 01/29/18 07:14 AST 30 U/L (17-59) 01/29/18 07:14 ALT 44 U/L (21-72) 01/29/18 07:14 Alkaline Phosphatase 66 U/L (38-126) 01/29/18 07:14 NT-Pro-B Natriuret Pep 56003 pg/mL (0-900) H 01/26/18 10:23 Total Protein 6.1 g/dL (6.3-8.3) L 01/29/18 07:14 Albumin 3.3 g/dL (3.5-5.0) L 01/29/18 07:14 Globulin 2.8 gm/dL (2.2-3.9) 01/29/18 07:14 Albumin/Globulin Ratio 1.2 (1.0-2.1) 01/29/18 07:14 Triglycerides 87 mg/dL (0-149) D 01/27/18 05:01 Cholesterol 132 mg/dL (0-199) 01/27/18 05:01 LDL Cholesterol Direct 75 mg/dL (0-129) 01/27/18 05:01 HDL Cholesterol 32 mg/dL (30-70) 01/27/18 05:01 Free T4 1.43 ng/dL (0.78-2.19) 01/27/18 05:01 TSH 3rd Generation 10.30 mIU/L (0.46-4.68) H 01/27/18 05:01 Urine Color Straw (YELLOW) 01/28/18 18:37 Urine Clarity Hazy (Clear) 01/28/18 18:37 Urine pH 9.0 (5.0-8.0) 01/28/18 18:37 Ur Specific [place] 1.006 (1.003-1.030) 01/28/18 18:37 Urine Protein 2+ mg/dL (NEGATIVE) H 01/28/18 18:37 Urine Glucose (UA) 2+ mg/dL (Normal) H 01/28/18 18:37 Urine Ketones Negative mg/dL (NEGATIVE) 01/28/18 18:37 Urine Blood 3+ (NEGATIVE) H 01/28/18 18:37 Urine Nitrate Negative (NEGATIVE) 01/28/18 18:37 Urine Bilirubin Negative (NEGATIVE) 01/28/18 18:37 Urine Urobilinogen Normal mg/dL (0.2-1.0) 01/28/18 18:37 Ur Leukocyte Esterase 1+ Kye/uL (Negative) H 01/28/18 18:37 Urine WBC (Auto) 18 /hpf (0-5) H 01/28/18 18:37 Urine RBC (Auto) 272 /hpf (0-3) H 01/28/18 18:37 Ur Squamous Epith Cells < 1 /hpf (0-5) 01/28/18 18:37 Urine Bacteria Rare (<OCC) 01/28/18 18:37 Hep Bs Antigen Negative (NEGATIVE) 01/26/18 10:23 Attending/Attestation - Attestation I have personally seen and examined this patient.: Yes I have fully participated in the care of the patient.: Yes I have reviewed all pertinent clinical information, including history, physical exam and plan: Yes Notes (Text): Seen and examined before discharge. Discharge plan discussed with the resident .I agree with the discharge plan.
--- NOTE | 2018-01-29 09:58 | CP.PCM.PN ---
Subjective - Date & Time of Evaluation Date of Evaluation: 01/29/18 Time of Evaluation: 09:56 - Subjective Subjective: s/p ilia choley s/p HD 01/28 feels better likely discharge today Objective - Vital Signs/Intake and Output Vital Signs (last 24 hours): Temp Pulse Resp BP Pulse Ox 98.5 F 81 20 161/81 H 99 01/29/18 08:16 01/29/18 08:16 01/29/18 08:16 01/29/18 08:16 01/29/18 08:16 Intake and Output: 01/29/18 01/29/18 06:59 18:59 Intake Total 200 Output Total 150 Balance 50 - Medications Medications: Current Medications Albuterol Sulfate (Albuterol 0.083% Inhal Katelyn (2.5 Mg/3 Ml) Ud) 2.5 mg INH RQ6 PRN PRN Reason: Cough and congestion Aspirin (Ecotrin) 81 mg PO DAILY [facility] Last Admin: 01/29/18 09:34 Dose: 81 mg Calcium Acetate (Phoslo) 667 mg PO TIDCC [facility] Last Admin: 01/29/18 08:23 Dose: 667 mg Carvedilol (Coreg) 6.25 mg PO BID [facility] Last Admin: 01/29/18 09:34 Dose: 6.25 mg Ciprofloxacin (Cipro) 500 mg PO BID [facility] PRN Reason: Protocol Last Admin: 01/29/18 09:34 Dose: 500 mg Docusate Sodium (Colace) 100 mg PO TID [facility] Last Admin: 01/29/18 09:34 Dose: 100 mg Enalapril Maleate (Vasotec) 2.5 mg PO DAILY [facility] Last Admin: 01/28/18 09:46 Dose: 2.5 mg Epoetin Michael (Procrit) 10,000 unit IV MWF [facility] Last Admin: 01/28/18 18:51 Dose: 10,000 unit Famotidine (Pepcid) 20 mg PO DAILY [facility] Last Admin: 01/29/18 09:34 Dose: 20 mg Levothyroxine Sodium (Synthroid) 125 mcg PO DAILY@0630 [facility] Last Admin: 01/29/18 05:55 Dose: 125 mcg Ondansetron HCl (Zofran Inj) 4 mg IVP Q6 PRN PRN Reason: Nausea/Vomiting Oxycodone/Acetaminophen (Percocet 5/325 Mg Tab) 1 tab PO Q4H PRN PRN Reason: Pain, moderate (4-7) Stop: 01/30/18 10:54 Last Admin: 01/28/18 00:40 Dose: 1 tab Rosuvastatin Calcium (Crestor) 5 mg PO HS [facility] Last Admin: 01/28/18 21:39 Dose: 5 mg Tamsulosin HCl (Flomax) 0.4 mg PO DAILY [facility] Last Admin: 01/29/18 09:34 Dose: 0.4 mg - Labs Labs: 01/29/18 07:14 01/29/18 07:14 PT 13.1 SECONDS (9.7-12.2) H 01/27/18 05:01 INR 1.2 01/27/18 05:01 APTT 32 SECONDS (21-34) 01/27/18 05:01 - Constitutional Appears: No Acute Distress, Chronically Ill - Head Exam Head Exam: ATRAUMATIC, NORMAL INSPECTION - Eye Exam Eye Exam: EOMI, Normal appearance - Neck Exam Neck Exam: Normal Inspection. absent: Tenderness - Respiratory Exam Respiratory Exam: Clear to Ausculation Bilateral, NORMAL BREATHING PATTERN - Cardiovascular Exam Cardiovascular Exam: REGULAR RHYTHM, +S1 - GI/Abdominal Exam GI & Abdominal Exam: Soft. absent: Tenderness - Extremities Exam Extremities Exam: Normal Inspection. absent: Tenderness - Neurological Exam Neurological Exam: Awake, CN II-XII Intact - Skin Skin Exam: Dry, Warm Assessment and Plan (1) Cholecystitis Status: Acute (2) ESRD (end stage renal disease) Status: Acute (3) Hypertensive chronic kidney disease with stage 5 chronic kidney disease or end stage renal disease Status: Acute - Assessment and Plan (Free Text) Plan: ok for discharge to outpt HD unit rx UTI
[2018-01-29] MEDS ORDERED: Pneumococcal 23-Valent Vaccine IM ONE (10:00)
[2018-01-29 10:38] VITALS: BP 150/80
== END 2018-01-29 12:47 | disposition home or self-care (01) | DRG 417 ==
LOC: C.ER 08:34 → C.9E 12:01 → C.3T 12:08
PROVIDERS: ADMIT Internal Medicine; ATTEND Internal Medicine
PROC: 5A1D70Z Performance of Urinary Filtration, Intermittent, Less than 6 Hours Per Day (ICD-10-PCS; 2018-01-26)
PROC: 0FT44ZZ Resection of Gallbladder, Percutaneous Endoscopic Approach (ICD-10-PCS; principal; 2018-01-27 07:45)
PROC: 5A1D70Z Performance of Urinary Filtration, Intermittent, Less than 6 Hours Per Day (ICD-10-PCS; 2018-01-28)
DX: K80.10 Calculus of gallbladder with chronic cholecystitis without obstruction (principal); N18.6 End stage renal disease; I13.2 Hypertensive heart and chronic kidney disease with heart failure and with stage 5 chronic kidney disease, or end stage renal disease; I50.22 Chronic systolic (congestive) heart failure; E78.5 Hyperlipidemia, unspecified; E03.9 Hypothyroidism, unspecified; Z99.2 Dependence on renal dialysis; Z87.891 Personal history of nicotine dependence

== ENCOUNTER 2018-02-10 11:07 | Emergency (ER) | payer MEDICARE, OTHER ==
--- NOTE | 2018-02-10 12:15 | C.PDOC ---
History Of Present Illness 67 year old male with PMHx of ESRD presents to the ED c/o nausea, weakness and abdominal pain while walking for the past 8 days. Patient reports he had gallbladder surgery done 15 days ago, does not remember his surgeon, and reports his symptoms started after the surgery. Patient is also c/o left testicular pain after having a bladder US done due to urinary retention as well as black loose stool for the past 4 days. Patient states he currently goes to dialysis on Mondays, Friday and Fridays. Patient states he saw Dr. Banks yesterday who gave him " vitamin prescription" because patient reports he feels tired. Patient denies fever, chills, nausea, vomit, diarrhea, back pain, dyauria, hematuria. Time Seen by Provider: 02/10/18 11:33 Chief Complaint (Nursing): GI Problem History Per: Patient History/Exam Limitations: no limitations Onset/Duration Of Symptoms: Days (8) Current Symptoms Are (Timing): Still Present Location Of Pain/Discomfort: Diffuse Quality Of Discomfort: "Pain" Associated Symptoms: Nausea, Other (weakness) Exacerbating Factors: Walking Alleviating Factors: None Recent travel outside of the [place]: No Additional History Per: Patient Past Medical History Reviewed: Historical Data, Nursing Documentation, Vital Signs Vital Signs: Last Vital Signs Temp 99.1 F 02/10/18 13:29 Pulse 97 H 02/10/18 13:29 Resp 20 02/10/18 13:29 BP 175/97 H 02/10/18 14:39 Pulse Ox 99 02/10/18 14:08 - Medical History PMH: Arthritis, HTN, Hypothyroidism, Peripheral Edema (left arm and hand edema) , End Stage Renal Disease, Chronic Kidney Disease Denies: Alzheimer's Disease, Anemia, Anxiety, Atrial Fibrillation, Bipolar Disorder, Cardia Arrhythmia, CHF, Crohn's Disease, Dementia, Depression, Diverticulitis, Fractures, Gastritis, Gall Bladder Disease, HIV, Hypercholesterolemia, Hyperthyroidism, Kidney Stones, Migraine, Mitral Valve Prolapse, Multiple Sclerosis, Osteoporosis, Paranoia, Parkinson's Disease, Post Traumatic Stress Disorder, Rheumatoid Arthritis, Schizophrenia, Seizures, Sickle Cell Disease, Sexually Transmitted Disease, TIA Surgical History: Cholecystectomy Denies: Appendectomy, CABG, Carotid Endarterectomy, Coronary Stent, Pacemaker , Tonsillectomy - [facility] Procedures (01/26/18) ARTHROCENTESIS (06/24/14) DIALYSIS ARTERIOVENOSTOM (06/24/14) HEMODIALYSIS (06/24/14) RESECTION OF GALLBLADDER, PERCUTANEOUS ENDOSCOPIC APPROACH (01/26/18) VENOUS CATHETERIZATION FOR RENAL DIALYSIS (06/24/14) Family History: States: Unknown Family Hx - Social History Hx Tobacco Use: No Hx Alcohol Use: No Hx Substance Use: No - Immunization History Hx Tetanus Toxoid Vaccination: No Hx Influenza Vaccination: No Hx Pneumococcal Vaccination: No Review Of Systems Constitutional: Negative for: Fever, Chills Cardiovascular: Negative for: Chest Pain Respiratory: Negative for: Cough, Shortness of Breath Gastrointestinal: Positive for: Nausea, Vomiting, Abdominal Pain, Melena Genitourinary: Negative for: Dysuria, Hematuria Musculoskeletal: Negative for: Back Pain Skin: Negative for: Rash Physical Exam - Physical Exam Appears: Non-toxic, No Acute Distress Skin: Normal Color, Warm, Dry Head: Atraumatic, Normacephalic Eye(s): bilateral: Normal Inspection Oral Mucosa: Moist Neck: Normal ROM, Supple Chest: Symmetrical Cardiovascular: Rhythm Regular, No Murmur Respiratory: Normal Breath Sounds, No Rales, No Rhonchi, No Wheezing Gastrointestinal/Abdominal: Bowel Sounds (active), Soft, Tenderness (epigastric) , No Guarding, No Rebound Rectal: Normal Exam, No Hemorrhoids, No Mass, Other (no stool in the vault ) Back: No CVA Tenderness Male Genital: Normal Inspection, No Testicular Tenderness, No Testicular Swelling Extremity: Normal ROM, No Tenderness, Capillary Refill (< 2 seconds), No Swelling, Other (fistula in the left upper arm with positive thrill ) Pulses: Left Dorsalis Pedis: Normal, Right Dorsalis Pedis: Normal Neurological/Psych: Oriented x3, Normal Speech Gait: Steady ED Course And Treatment - Laboratory Results Result Diagrams: 02/10/18 12:43 02/10/18 12:43 O2 Sat by Pulse Oximetry: 99 (ON RA) Pulse Ox Interpretation: Normal - CT Scan/US US abdomen Other Rad Studies (CT/US): Read By Radiologist, Radiology Report Reviewed CT/US Interpretation: HISTORY: epigastric and ruq pain s/p choley. COMPARISON : None. TECHNIQUE: Sonographic evaluation of the right upper quadrant of the abdomen. FINDINGS: LIVER: Measures 14.3 cm in length. Normal echogenicity of the liver parenchyma. No mass. No intrahepatic bile duct dilatation. GALLBLADDER: Surgically absent. COMMON BILE DUCT: Measures 2.9 mm. No stones. No dilatation. PANCREAS: Unremarkable as visualized. No mass. No ductal dilatation. RIGHT KIDNEY: Measures 6.7 cm in length. Small in size with diffuse increased echogenicity. No calculus, mass, or hydronephrosis. There are 2 simple cysts in the interpolar region. AORTA: No aneurysmal dilatation. IVC: Unremarkable. OTHER FINDINGS: Note is made of small right pleural effusion. IMPRESSION: 1. Status post cholecystectomy, no biliary dilatation. 2. Small atrophic right kidney with evidence for chronic renal parenchymal disease. Medical Decision Making Medical Decision Making: Plan: * Labs * UA * Stool culture * US abdomen * 1455 pt with no acute findings in labs or on ct., advised to f/u with Dr Moore. Pt requesting food, sts he is hungry. Disposition Counseled Patient/Family Regarding: Studies Performed, Diagnosis, Need For Followup - Disposition Referrals: Chantal Moore MD [Staff Provider] - Disposition: HOME/ ROUTINE Disposition Time: 14:56 Condition: GOOD Additional Instructions: Por favor, nicholas un seguimiento con rader cirujano, el Dr. Moore, [place] pronto adrienne sea posible. Ir a la dilisis adrienne de costumbre maana. Regrese a la chel de emergencias por cualquier sntoma peor. Please follow up with your surgeon, Dr Moore, as soon as possible. Go for dialysis as usual tomorrow. Return to ER for any worse symptoms. Forms: Gen Discharge Inst Ethiopian, [facility] (Ethiopian) - Clinical Impression Clinical Impression: Abdominal pain - PA / TEACHER INDUSTRIAL ARTS / Resident Statement MD/DO has reviewed & agrees with the documentation as recorded. - Scribe Statement The provider has reviewed the documentation as recorded by the Scribe Babar Murray All medical record entries made by the Scribe were at my direction and personally dictated by me. I have reviewed the chart and agree that the record accurately reflects my personal performance of the history, physical exam, medical decision making, and the department course for this patient. I have also personally directed, reviewed, and agree with the discharge instructions and disposition.
[2018-02-10 12:42] VITALS: RESP 20
[2018-02-10 12:50] LABS: BASO # 0.1 K/uL (0.0-0.2); BASO % 2.8 % (0.0-2.0); EOS # 0.3 K/uL (0.0-0.7); EOS % 8.1 % (0.0-4.0); HEMOGLOBIN 10.2 g/dL (12.0-18.0); LYMPH # 0.9 K/uL (1.0-4.3); MEAN CELL VOLUME 88.2 fL (80.0-94.0); MEAN CORPUSCULAR HEMOGLOBIN 29.7 pg (27.0-31.0); MEAN CORPUSCULAR HGB CONC 33.7 g/dL (33.0-37.0); MEAN PLATELET VOLUME 7.9 fL (7.2-11.7); MONO # 0.4 K/uL (0.0-0.8); MONO % 8.7 % (0.0-10.0); NEUT # 2.4 K/uL (1.8-7.0); NEUT % 59.4 % (50.0-75.0); NRBC % 0.1 % (0.0-2.0); RBC 3.44 Mil/uL (4.40-5.90); RED CELL DISTRIBUTION WIDTH 15.2 % (11.5-14.5); WHITE BLOOD COUNT 4.1 K/uL (4.8-10.8)
[2018-02-10 12:53] LABS: URINE BILIRUBIN NEGATIVE (NEGATIVE); URINE BLOOD NEGATIVE (NEGATIVE); URINE CLARITY Clear (Clear); URINE COLOR Straw (YELLOW); URINE GLUCOSE (UA) 1+ mg/dL (Normal); URINE LEUKOCYTE ESTERASE NEG Leu/uL (Negative); URINE PROTEIN 2+ mg/dL (NEGATIVE); URINE UROBILINOGEN NORMAL mg/dL (0.2-1.0)
[2018-02-10 13:07] LABS: ALB/GLOB RATIO 1.5 (1.0-2.1); ALBUMIN 4.4 g/dL (3.5-5.0); CALCIUM 8.9 mg/dl (8.6-10.4)
[2018-02-10 13:30] VITALS: PULSE 97; TEMP 99.1
--- NOTE | 2018-02-10 13:46 | US ---
HISTORY: epigastric and ruq pain s/p choley COMPARISON: None. TECHNIQUE: Sonographic evaluation of the right upper quadrant of the abdomen. FINDINGS: LIVER: Measures 14.3 cm in length. Normal echogenicity of the liver parenchyma. No mass. No intrahepatic bile duct dilatation. GALLBLADDER: Surgically absent. COMMON BILE DUCT: Measures 2.9 mm. No stones. No dilatation. PANCREAS: Unremarkable as visualized. No mass. No ductal dilatation. RIGHT KIDNEY: Measures 6.7 cm in length. Small in size with diffuse increased echogenicity. No calculus, mass, or hydronephrosis. There are 2 simple cysts in the interpolar region. AORTA: No aneurysmal dilatation. IVC: Unremarkable. OTHER FINDINGS: Note is made of small right pleural effusion. IMPRESSION: 1. Status post cholecystectomy, no biliary dilatation. 2. Small atrophic right kidney with evidence for chronic renal parenchymal disease.
[2018-02-10 14:09] VITALS: O2SAT 99
[2018-02-10 14:39] VITALS: BP 175/97
== END 2018-02-10 15:02 | disposition home or self-care (01) ==
LOC: C.ER 11:07
DX: R10.11 Right upper quadrant pain (principal); R10.13 Epigastric pain; I12.0 Hypertensive chronic kidney disease with stage 5 chronic kidney disease or end stage renal disease; N18.6 End stage renal disease; Z99.2 Dependence on renal dialysis
CPT/HCPCS: 76705; 80053; 81001; 83690; 85025; 87086; 99285; G0328

== ENCOUNTER 2018-02-12 01:31 | Emergency (ER) | payer OTHER ==
[2018-02-12] MEDS ORDERED: Sodium Chloride 0.9% 500 ML IV ONE (01:59)
[2018-02-12] MEDS ORDERED: Sodium Chloride 0.9% 1,000 ML IV ONE (02:00)
[2018-02-12] MEDS ORDERED: Iohexol 240 (50 ml) PO ONE (02:02)
--- NOTE | 2018-02-12 02:02 | C.PDOC ---
History Of Present Illness 67 year old male presents to the ER with a complaint of abdominal pain that began today, associated with diarrhea and vomiting. Denies fever or chills. Chief Complaint (Nursing): Abdominal Pain History Per: Patient History/Exam Limitations: no limitations Onset/Duration Of Symptoms: Hrs Current Symptoms Are (Timing): Still Present Location Of Pain/Discomfort: RUQ, LUQ Radiation Of Pain To:: None Quality Of Discomfort: Unable To Describe Associated Symptoms: Vomiting, Diarrhea. denies: Fever, Chills Exacerbating Factors: None Alleviating Factors: None Recent travel outside of the [place]: No Past Medical History Reviewed: Historical Data, Nursing Documentation, Vital Signs Vital Signs: Last Vital Signs Temp 98.5 F 02/12/18 04:02 Pulse 78 02/12/18 04:02 Resp 16 02/12/18 04:02 BP 148/83 02/12/18 04:02 Pulse Ox 96 02/12/18 05:50 - Medical History PMH: Arthritis, HTN, Hypothyroidism, Peripheral Edema (left arm and hand edema) , End Stage Renal Disease, Chronic Kidney Disease Surgical History: Cholecystectomy - [facility] Procedures (01/26/18) ARTHROCENTESIS (06/24/14) DIALYSIS ARTERIOVENOSTOM (06/24/14) HEMODIALYSIS (06/24/14) RESECTION OF GALLBLADDER, PERCUTANEOUS ENDOSCOPIC APPROACH (01/26/18) VENOUS CATHETERIZATION FOR RENAL DIALYSIS (06/24/14) Family History: States: Unknown Family Hx - Social History Hx Tobacco Use: No Hx Alcohol Use: No Hx Substance Use: No - Immunization History Hx Tetanus Toxoid Vaccination: No Hx Influenza Vaccination: No Hx Pneumococcal Vaccination: No Review Of Systems Constitutional: Negative for: Fever, Chills Cardiovascular: Negative for: Chest Pain Respiratory: Negative for: Cough Gastrointestinal: Positive for: Vomiting, Abdominal Pain, Diarrhea Physical Exam - Physical Exam Appears: Non-toxic Skin: Normal Color, Warm, Dry Head: Atraumatic, Normacephalic Eye(s): bilateral: Normal Inspection Oral Mucosa: Moist Chest: Symmetrical, No Tenderness Cardiovascular: Rhythm Regular Respiratory: Normal Breath Sounds, No Rales, No Rhonchi, No Wheezing Gastrointestinal/Abdominal: Soft, Tenderness (Mild upper quadrant), No Guarding , No Rebound Neurological/Psych: Oriented x3, Normal Speech ED Course And Treatment - Laboratory Results Result Diagrams: 02/12/18 02:17 02/12/18 02:17 ECG: Interpreted By Me, Viewed By Me ECG Rhythm: Sinus Rhythm, Nonspecific Changes ECG Interpretation: No Acute Changes, Abnormal Interpretation Of ECG: NSR< no acute changes, no tenting of T -waves,prolonged QT interval, abnormal tracings, Rate From EC O2 Sat by Pulse Oximetry: 96 (Room air) Pulse Ox Interpretation: Normal Progress Note: CT abd/pel, blood work, and urinalysis ordered. Bentyl, reglan, toradol, and IV fluids administered. Disposition - Disposition Disposition: HOSPITALIZED Disposition Time: 07:00 Condition: STABLE Forms: [employer] (Setswana) - POA Present On Arrival: None - Clinical Impression Clinical Impression: ESRD (end stage renal disease) on dialysis, Persistent vomiting - Scribe Statement The provider has reviewed the documentation as recorded by the Scribpeggy Fernandez All medical record entries made by the Scribe were at my direction and personally dictated by me. I have reviewed the chart and agree that the record accurately reflects my personal performance of the history, physical exam, medical decision making, and the department course for this patient. I have also personally directed, reviewed, and agree with the discharge instructions and disposition.
[2018-02-12] MEDS ORDERED: Iohexol 240 (50 ml) ONE (02:19)
[2018-02-12 02:20] LABS: BASO # 0.1 K/uL (0.0-0.2); EOS # 0.2 K/uL (0.0-0.7); EOS % 3.2 % (0.0-4.0); HEMOGLOBIN 10.5 g/dL (12.0-18.0); LYMPH # 0.9 K/uL (1.0-4.3); LYMPH % 14.5 % (20.0-40.0); MEAN CELL VOLUME 87.7 fL (80.0-94.0); MEAN CORPUSCULAR HEMOGLOBIN 29.2 pg (27.0-31.0); MEAN CORPUSCULAR HGB CONC 33.3 g/dL (33.0-37.0); MEAN PLATELET VOLUME 8.3 fL (7.2-11.7); MONO # 0.4 K/uL (0.0-0.8); MONO % 7.1 % (0.0-10.0); NEUT # 4.6 K/uL (1.8-7.0); NEUT % 74.2 % (50.0-75.0); NRBC % 0.1 % (0.0-2.0); RBC 3.59 Mil/uL (4.40-5.90); RED CELL DISTRIBUTION WIDTH 15.1 % (11.5-14.5); WHITE BLOOD COUNT 6.2 K/uL (4.8-10.8)
[2018-02-12] MEDS ORDERED: Sodium Chloride 0.9% 100 ML ONE (02:33)
[2018-02-12 03:00] LABS: ALB/GLOB RATIO 1.4 (1.0-2.1); ALBUMIN 3.9 g/dL (3.5-5.0)
[2018-02-12 03:02] LABS: CALCIUM 9.6 mg/dl (8.6-10.4)
[2018-02-12 04:02] VITALS: RESP 16
[2018-02-12 06:37] VITALS: BP 152/88; PULSE 74; TEMP 98.2; O2SAT 98
--- NOTE | 2018-02-12 06:51 | CT ---
EXAM: CT Abdomen and Pelvis With Intravenous Contrast CLINICAL HISTORY: 67 years old, male; Pain; Abdominal pain; Patient HX: 01-18-18; Additional info: Abd pain /vomiting TECHNIQUE: Axial computed tomography images of the abdomen and pelvis with intravenous contrast. All CT scans at this facility use one or more dose reduction techniques, viz.: automated exposure control; ma/kV adjustment per patient size (including targeted exams where dose is matched to indication; i.e. head); or iterative reconstruction technique. Coronal and sagittal reformatted images were created and reviewed. CONTRAST: 100 mL of [id number] administered intravenously. COMPARISON: CT - ABD PELVIS W/O PO OR IV CONT 2018-01-18 14:35 FINDINGS: Lung bases: There is minimal bibasilar atelectasis. Pleural space: Small to moderate right pleural effusion. Trace left pleural effusion. Heart: The heart demonstrates mild diffuse enlargement. ABDOMEN: Liver: There is a small amount of perihepatic fluid. Gallbladder and bile ducts: There has been a cholecystectomy. There is mild stranding in the fat in the gallbladder fossa most likely related to recent surgery. No ductal dilation. No focal fluid collection in the gallbladder fossa. Pancreas: Unremarkable. No mass. No ductal dilation. Spleen: There is a small amount of perisplenic fluid. Granulomatous calcification in the spleen. Adrenals: Unremarkable. No mass. Kidneys and ureters: The kidneys are markedly atrophic.There are multiple bilateral renal cysts. No hydronephrosis. Stomach and bowel: Unremarkable. No obstruction. No mucosal thickening. PELVIS: Appendix: No findings to suggest acute appendicitis. Bladder: The bladder is decompressed and thickwalled. Reproductive: Unremarkable as visualized. ABDOMEN and PELVIS: Intraperitoneal space: Small amount of free fluid in the pericolic gutters. No free air. Bones/joints: No acute fracture. No dislocation. Soft tissues: Unremarkable. Vasculature: Unremarkable. No abdominal aortic aneurysm. Lymph nodes: Unremarkable. No enlarged lymph nodes. IMPRESSION: Cholecystectomy. Mild stranding in the gallbladder fossa most likely postsurgical. Nonspecific trace ascites. No focal fluid collection. No bowel obstruction or acute colitis. Mildly thick walled bladder probably secondary to nondistention. Correlate clinically to exclude cystitis. Bilateral pleural effusions with bibasilar atelectasis, unchanged.
[2018-02-12 07:18] LABS: SPERM URINE RARE /hpf; URINE BACTERIA RARE (<OCC); URINE BILIRUBIN NEGATIVE (NEGATIVE); URINE BLOOD 1+ (NEGATIVE); URINE CLARITY Clear (Clear); URINE COLOR Yellow (YELLOW); URINE GLUCOSE (UA) 2+ mg/dL (Normal); URINE LEUKOCYTE ESTERASE NEG Leu/uL (Negative); URINE PROTEIN 3+ mg/dL (NEGATIVE); URINE UROBILINOGEN NORMAL mg/dL (0.2-1.0)
--- NOTE | 2018-02-14 03:14 | CARD ---
APPROVED REPORT EKG Measurement Heart [id number] <Conclusion> Normal sinus rhythm Prolonged QT Abnormal ECG
== END 2018-02-12 07:34 | disposition home or self-care (01) ==
LOC: C.ER 01:31
DX: I12.0 Hypertensive chronic kidney disease with stage 5 chronic kidney disease or end stage renal disease (principal); N18.6 End stage renal disease; R11.10 Vomiting, unspecified; Z99.2 Dependence on renal dialysis
CPT/HCPCS: 74176; 80053; 81001; 83690; 85025; 93005; 96372; 96374; 96375; 96376; 99285; J0500; J1885; J2765; Q9966

== ENCOUNTER 2018-02-15 05:08 | Inpatient (IN) | payer MEDICARE, OTHER ==
[2018-02-15 06:16] LABS: BASO # 0.1 K/uL (0.0-0.2); BASO % 1.3 % (0.0-2.0); EOS # 0.3 K/uL (0.0-0.7); EOS % 3.6 % (0.0-4.0); HEMOGLOBIN 10.7 g/dL (12.0-18.0); LYMPH # 1.4 K/uL (1.0-4.3); LYMPH % 14.9 % (20.0-40.0); MEAN CELL VOLUME 88.8 fL (80.0-94.0); MEAN CORPUSCULAR HEMOGLOBIN 30.1 pg (27.0-31.0); MEAN CORPUSCULAR HGB CONC 33.8 g/dL (33.0-37.0); MEAN PLATELET VOLUME 8.6 fL (7.2-11.7); MONO # 0.7 K/uL (0.0-0.8); MONO % 7.2 % (0.0-10.0); NEUT # 6.7 K/uL (1.8-7.0); NRBC % 0.6 % (0.0-2.0); RBC 3.56 Mil/uL (4.40-5.90); RED CELL DISTRIBUTION WIDTH 15.4 % (11.5-14.5); WHITE BLOOD COUNT 9.1 K/uL (4.8-10.8)
[2018-02-15] MEDS ORDERED: Morphine 4 MG/ML VIAL ONE (06:19)
[2018-02-15 06:23] LABS: INR 1.5; PROTHROMBIN TIME 16.7 SECONDS (9.7-12.2)
--- NOTE | 2018-02-15 06:55 | C.PDOC ---
Chief Complaint (Nursing): Abdominal Pain Past Medical History Vital Signs: Last Vital Signs Temp 97.8 F 02/15/18 05:23 Pulse 76 02/15/18 05:23 Resp 18 02/15/18 05:23 BP 139/91 H 02/15/18 05:23 Pulse Ox 96 02/15/18 06:55 - Medical History PMH: Arthritis, HTN, Hypothyroidism, Peripheral Edema (left arm and hand edema) , End Stage Renal Disease, Chronic Kidney Disease Denies: Alzheimer's Disease, Anemia, Anxiety, Atrial Fibrillation, Bipolar Disorder, Cardia Arrhythmia, CHF, Crohn's Disease, Dementia, Depression, Diverticulitis, Fractures, Gastritis, Gall Bladder Disease, HIV, Hypercholesterolemia, Hyperthyroidism, Kidney Stones, Migraine, Mitral Valve Prolapse, Multiple Sclerosis, Osteoporosis, Paranoia, Parkinson's Disease, Post Traumatic Stress Disorder, Rheumatoid Arthritis, Schizophrenia, Seizures, Sickle Cell Disease, Sexually Transmitted Disease, TIA Surgical History: Cholecystectomy Denies: Appendectomy, CABG, Carotid Endarterectomy, Coronary Stent, Pacemaker , Tonsillectomy - [facility] Procedures (01/26/18) ARTHROCENTESIS (06/24/14) DIALYSIS ARTERIOVENOSTOM (06/24/14) HEMODIALYSIS (06/24/14) RESECTION OF GALLBLADDER, PERCUTANEOUS ENDOSCOPIC APPROACH (01/26/18) VENOUS CATHETERIZATION FOR RENAL DIALYSIS (06/24/14) Family History: States: Unknown Family Hx - Social History Hx Tobacco Use: No Hx Alcohol Use: No Hx Substance Use: No - Immunization History Hx Tetanus Toxoid Vaccination: No Hx Influenza Vaccination: No Hx Pneumococcal Vaccination: No ED Course And Treatment - Laboratory Results Result Diagrams: 02/15/18 06:13 O2 Sat by Pulse Oximetry: 96 Disposition - Disposition Disposition Time: 06:54 Forms: [employer] (Azeri)
[2018-02-15 06:58] LABS: ALB/GLOB RATIO 1.3 (1.0-2.1); ALBUMIN 3.4 g/dL (3.5-5.0); CALCIUM 8.4 mg/dl (8.6-10.4); CK-MB 1.53 ng/mL (0.0-3.38)
[2018-02-15 07:03] LABS: TROPONIN I 0.045 ng/mL (0.00-0.120)
--- NOTE | 2018-02-15 07:03 | C.PDOC ---
History Of Present Illness 67 y/o male with PMHx of ESRD (on dialysis) and s/p cholecystectomy presents to the ED for evaluation of abdominal pain. Patient is on dialysis M-W-F managed by Dr. Banks. For the last 3 days, patient has been complaining of upper abdominal pain and not urinating, as per son. Prior to this, patient was producing urine regularly. Patient is also complaining of difficulty sleeping. Of note patient was seen here a few days ago, had normal CT scan, and was discharged home. Patient is complaining of persistent pain, prompting ED visit today. Time Seen by Provider: 02/15/18 05:45 Chief Complaint (Nursing): Abdominal Pain History Per: Family (son) History/Exam Limitations: no limitations Onset/Duration Of Symptoms: Days Current Symptoms Are (Timing): Still Present Past Medical History Reviewed: Historical Data, Nursing Documentation, Vital Signs Vital Signs: Last Vital Signs Temp 97.8 F 02/15/18 05:23 Pulse 76 02/15/18 05:23 Resp 18 02/15/18 05:23 BP 139/91 H 02/15/18 05:23 Pulse Ox 96 02/15/18 07:04 - Medical History PMH: Arthritis, HTN, Hypothyroidism, Peripheral Edema (left arm and hand edema) , End Stage Renal Disease, Chronic Kidney Disease Denies: Alzheimer's Disease, Anemia, Anxiety, Atrial Fibrillation, Bipolar Disorder, Cardia Arrhythmia, CHF, Crohn's Disease, Dementia, Depression, Diverticulitis, Fractures, Gastritis, Gall Bladder Disease, HIV, Hypercholesterolemia, Hyperthyroidism, Kidney Stones, Migraine, Mitral Valve Prolapse, Multiple Sclerosis, Osteoporosis, Paranoia, Parkinson's Disease, Post Traumatic Stress Disorder, Rheumatoid Arthritis, Schizophrenia, Seizures, Sickle Cell Disease, Sexually Transmitted Disease, TIA Surgical History: Cholecystectomy Denies: Appendectomy, CABG, Carotid Endarterectomy, Coronary Stent, Pacemaker , Tonsillectomy - [facility] Procedures (01/26/18) ARTHROCENTESIS (06/24/14) DIALYSIS ARTERIOVENOSTOM (06/24/14) HEMODIALYSIS (06/24/14) RESECTION OF GALLBLADDER, PERCUTANEOUS ENDOSCOPIC APPROACH (01/26/18) VENOUS CATHETERIZATION FOR RENAL DIALYSIS (06/24/14) Family History: States: Unknown Family Hx - Social History Hx Tobacco Use: No Hx Alcohol Use: No Hx Substance Use: No - Immunization History Hx Tetanus Toxoid Vaccination: No Hx Influenza Vaccination: No Hx Pneumococcal Vaccination: No Review Of Systems Except As Marked, All Systems Reviewed And Found Negative. Constitutional: Negative for: Fever, Chills Cardiovascular: Negative for: Chest Pain Respiratory: Negative for: Shortness of Breath Gastrointestinal: Positive for: Abdominal Pain. Negative for: Vomiting, Diarrhea Genitourinary: Positive for: Other (urinary retention) Neurological: Negative for: Weakness, Numbness Physical Exam - Physical Exam Appears: Non-toxic, No Acute Distress Skin: Normal Color, Warm, Dry Head: Atraumatic, Normacephalic Eye(s): bilateral: Normal Inspection, PERRL, EOMI Nose: Normal Oral Mucosa: Moist Neck: Normal ROM, Supple Chest: Symmetrical Cardiovascular: Rhythm Regular, No Murmur Respiratory: Normal Breath Sounds, No Rales, No Rhonchi, No Wheezing Gastrointestinal/Abdominal: Soft, Tenderness (epigastric), No Guarding, No Rebound Back: Normal Inspection, No CVA Tenderness, No Vertebral Tenderness Extremity: Bilateral: Atraumatic, Normal Color And Temperature, Normal ROM Pulses: Left Dorsalis Pedis: Normal, Right Dorsalis Pedis: Normal Neurological/Psych: Oriented x3, Normal Speech ED Course And Treatment - Laboratory Results Result Diagrams: 02/15/18 06:13 02/15/18 06:13 O2 Sat by Pulse Oximetry: 96 (RA) Pulse Ox Interpretation: Normal Progress Note: Abdominal US and labs ordered. Patient given IV Morphine for pain control. 7:00 Patient endorsed to OSEAS Velazquez at this time, pending labs and ultrasound results. Disposition - Disposition Disposition Time: 07:11 Condition: FAIR - Clinical Impression Clinical Impression: Abdominal pain - PA / TECHNICAL CUSTOMER SUPPORT SPECIALIST / Resident Statement MD/DO has reviewed & agrees with the documentation as recorded. - Scribe Statement The provider has reviewed the documentation as recorded by the Scribe (Negra Martinez) All medical record entries made by the Scribe were at my direction and personally dictated by me. I have reviewed the chart and agree that the record accurately reflects my personal performance of the history, physical exam, medical decision making, and the department course for this patient. I have also personally directed, reviewed, and agree with the discharge instructions and disposition. Physician Patient Turnover Patient Signed Over To: Anai Velazquez Handoff Comments: pending US and labs
--- NOTE | 2018-02-15 10:35 | US ---
HISTORY: Pain epigastric, s/p cholecystectomy 3 wks ago COMPARISON: Limited abdomen ultrasound 02/10/2018. TECHNIQUE: Sonographic evaluation of the right upper quadrant of the abdomen. FINDINGS: LIVER: Measures 16.1 cm in length. Normal echogenicity of the liver parenchyma. No mass. No intrahepatic bile duct dilatation. GALLBLADDER: Surgically absent 8 weeks previously reportedly. Clinically correlate further. COMMON BILE DUCT: Measures 4.8 mm. No stones. No dilatation. PANCREAS: The tail of the pancreas is obscured by overlying bowel gas with remainder unremarkable. RIGHT KIDNEY: Measures 6.8 x 3.8 x 4.3 cm in length. Renal atrophy is reiterated with 2 simple cysts again evident. . AORTA: Incomplete visualization. IVC: Incomplete visualization. OTHER FINDINGS: None . IMPRESSION: Stable limited abdomen ultrasounds status post prior cholecystectomy. Normal CBD caliber. No prominent intrahepatic biliary dilatation. Partial imaging of the pancreas and marked right renal atrophy again evident.
--- NOTE | 2018-02-15 12:00 | CP.PCM.CON ---
History of Present Illness - History of Present Illness History of Present Illness: Surgery- Dr. Moore Reason for Consult: Transaminitis 67M pmhx significant for ESRD on HD, hypothyroidism, HF, cholelithiasis s/p lap nickolas on 01/27/2018, presents to Last ED w/ waxing and waning mid-epigastric pain for 4 days with no associated nausea or vomiting. Pain is not aggravated by anything. Of note patient stopped taking Levothyroxine for the last 3 days. Patient presented to the ED 3 days ago with similar symptoms. At the time a CT scan was performed which was negative for acute pathology. During this Visit Ultrasound was performed which showed normal CBD w/ no retained stones. Denies: Fevers, chills, chest pain, shortness of breath, vomiting, diarrhea, sudden changes in vision, changes in urinary or bowel habits, bright red blood per rectum. PMH: HTN, ESRD on HD MWF, hypothyroidism, systolic HF last known EF 36% PSH: L. AV Fistula, lap nickolas ALL: NKDA SocialHx: Denies tobacco, etoh, recreational drug use FamilyHx: sister pass away from renal failure 14 point review of system conducted, negative otherwise noted above Review of Systems - Review of Systems All systems: reviewed and no additional remarkable complaints except - Constitutional Constitutional: As Per HPI Past Patient History - Infectious Disease Hx of Infectious Diseases: None - Past Medical History & Family History Past Medical History?: Yes - Past Social History Smoking Status: Former Smoker - CARDIAC Hx Atrial Fibrillation: No Hx Cardia Arrhythmia: No Hx Congestive Heart Failure: No Hx Hypercholesterolemia: No Hx Hypertension: Yes Hx Mitral Valve Prolapse: No Hx Pacemaker: No Hx Peripheral Edema: Yes (left arm and hand edema) - PULMONARY Hx Respiratory Disorders: No - NEUROLOGICAL Hx Alzheimer's Disease: No Hx Dementia: No Hx Migraine: No Hx Multiple Sclerosis: No Hx Parkinson's Disease: No Hx Seizures: No Hx Transient Ischemic Attacks (TIA): No - HEENT Hx HEENT Problems: No - RENAL Hx Chronic Kidney Disease: Yes Hx Kidney Stones: No - ENDOCRINE/METABOLIC Hx Hyperthyroidism: No Hx Hypothyroidism: Yes - HEMATOLOGICAL/ONCOLOGICAL Hx Anemia: No Hx Human Immunodeficiency Virus (HIV): No Hx Sickle Cell Disease: No - INTEGUMENTARY Hx Dermatological Problems: No - MUSCULOSKELETAL/RHEUMATOLOGICAL Hx Arthritis: Yes Hx Fractures: No Hx Osteoporosis: No Hx Rheumatoid Arthritis: No - GASTROINTESTINAL Hx Crohn's Disease: No Hx Diverticulitis: No Hx Gall Bladder Disease: No Hx Gastritis: No - GENITOURINARY/GYNECOLOGICAL Hx Sexually Transmitted Disorders: No - PSYCHIATRIC Hx Anxiety: No Hx Bipolar Disorder: No Hx Depression: No Hx Paranoia: No Hx Post Traumatic Stress Disorder: No Hx Schizophrenia: No Hx Substance Use: No - SURGICAL HISTORY Hx Appendectomy: No Hx Carotid Endarterectomy: No Hx Cholecystectomy: Yes Hx Coronary Artery Bypass Graft: No Hx Coronary Stent: No Hx Tonsillectomy: No - ANESTHESIA Hx Anesthesia: Yes Hx Anesthesia Reactions: Yes Hx Malignant Hyperthermia: No Meds Allergies/Adverse Reactions: Allergies Allergy/AdvReac Type Severity Reaction Status Date / Time No Known Allergies Allergy Verified 02/15/18 05:28 Physical Exam - Constitutional Appears: Non-toxic, No Acute Distress - Head Exam Head Exam: ATRAUMATIC - Eye Exam Eye Exam: EOMI. absent: Scleral icterus - ENT Exam ENT Exam: Mucous Membranes Moist - Respiratory Exam Respiratory Exam: NORMAL BREATHING PATTERN. absent: Accessory Muscle Use, Respiratory Distress - Cardiovascular Exam Cardiovascular Exam: +S1, +S2. absent: Bradycardia, Tachycardia - GI/Abdominal Exam GI & Abdominal Exam: Soft, Tenderness (mid-epigastric tender to deep palpation) . absent: Distended, Firm, Guarding, Hernia, Rebound, Rigid Additional comments: Incision Clean, dry, intact. Dermabond on. Skin well closed. No signs of erythema, or purulent discharge - Extremities Exam Extremities exam: Positive for: normal inspection. Negative for: calf tenderness - Neurological Exam Neurological exam: Alert, Oriented x3 - Psychiatric Exam Psychiatric exam: Normal Affect - Skin Skin Exam: Intact, Warm Results - Vital Signs Recent Vital Signs: Last Vital Signs Temp 97.8 F 02/15/18 05:23 Pulse 67 02/15/18 10:56 Resp 18 02/15/18 10:56 BP 147/75 02/15/18 10:56 Pulse Ox 97 02/15/18 10:56 - Labs Result Diagrams: 02/15/18 06:13 02/15/18 06:13 Labs: Laboratory Results - last 24 hr 02/15/18 02/15/18 02/15/18 06:13 06:13 06:13 WBC 9.1 RBC 3.56 L Hgb 10.7 L Hct 31.6 L MCV 88.8 MCH 30.1 MCHC 33.8 RDW 15.4 H Plt Count 170 MPV 8.6 Neut % (Auto) 73.0 Lymph % (Auto) 14.9 L [place] % (Auto) 7.2 Eos % (Auto) 3.6 Baso % (Auto) 1.3 Neut # (Auto) 6.7 Lymph # (Auto) 1.4 [place] # (Auto) 0.7 Eos # (Auto) 0.3 Baso # (Auto) 0.1 PT 16.7 H INR 1.5 APTT 27 Sodium 124 L Potassium 4.6 Chloride 80 L Carbon Dioxide 30 Anion Gap 19 BUN 45 H Creatinine 6.9 H Est GFR ( Amer) 10 Est GFR (Non-Af Amer) 8 Random Glucose 106 Calcium 8.4 L Total Bilirubin 1.0 AST 508 H D ALT 744 H D Alkaline Phosphatase 129 H Total Creatine Kinase 440 H CK-MB (Mass) 1.53 Troponin I 0.0450 Total Protein 6.0 L Albumin 3.4 L Globulin 2.6 Albumin/Globulin Ratio 1.3 Amylase 74 Lipase 53 Assessment & Plan - Assessment and Plan (Free Text) Assessment: 67M s/p Lap Nickolas w/ elevated liver enzymes, normal T.Bili US: CBD normal caliber, no ductal dilatation CT Scan: normal post surgical changes, trace ascities Plan: - elevated liver enzymes most likely not surgical etiology with normal imaging and T.Bili - recommend hepatitis workup & medication and possible cause - regular diet - no acute surgical intervention indicated at this time - discussed case w/ Dr. Moore surgical attending [facility] PGY1
--- NOTE | 2018-02-15 14:22 | CP.PCM.HP ---
<Rosario Bates - Last Filed: 02/15/18 18:35> History of Present Illness - History of Present Illness History of Present Illness: CC: abdominal pain x 15 days HPI: 67M presents with abdominal pain for 15 days. Patient states he started having this abdominal pain and swelling of abdomen after the surgery. Patient states he has mid-epigastric pain, with difficulty breathing. Patient states he has not been able to sleep well for the past 4 days due to abdominal pain. Patient also states that he feels like he has less energy. Patient states he has never had much swelling in his abdomen before. Patient states he never had issues with his liver and was never told of a family history of liver problems, cancer. Patient states that he is from [facility] and has not drank any alcohol since leaving [facility]. He said last drink was 4-5 years ago. Patient admits to having a smoking history. Patient denies fever, chills, cough, vomiting, nausea, diarrhea, constipation. Patient admits to abdominal pain. PMH: HTN, ESRD on HD MWF, hypothyroidism, systolic HF last known EF 36%, Hypercholesterolemia PSH: Left AV Fistula, 01/27/18 chronic cholecystitis s/p laparoscopic cholecystectomy Social Hx: Patient admits to smoking, states he used to drink a lot of ETOH in [facility] but quit about 4-5 years ago, denies illicit drug use Family Hx: sister due to renal failure. his brothers are healthy and well. Present on Admission - Present on Admission Any Indicators Present on Admission: No History of DVT/PE: No History of Uncontrolled Diabetes: No Urinary Catheter: No Decubitus Ulcer Present: No Past Patient History - Infectious Disease Hx of Infectious Diseases: None - Past Medical History & Family History Past Medical History?: Yes - Past Social History Smoking Status: Former Smoker - CARDIAC Hx Atrial Fibrillation: No Hx Cardia Arrhythmia: No Hx Congestive Heart Failure: No Hx Hypercholesterolemia: No Hx Hypertension: Yes Hx Mitral Valve Prolapse: No Hx Pacemaker: No Hx Peripheral Edema: Yes (left arm and hand edema) - PULMONARY Hx Respiratory Disorders: No - NEUROLOGICAL Hx Alzheimer's Disease: No Hx Dementia: No Hx Migraine: No Hx Multiple Sclerosis: No Hx Parkinson's Disease: No Hx Seizures: No Hx Transient Ischemic Attacks (TIA): No - HEENT Hx HEENT Problems: No - RENAL Hx Chronic Kidney Disease: Yes Hx Kidney Stones: No - ENDOCRINE/METABOLIC Hx Hyperthyroidism: No Hx Hypothyroidism: Yes - HEMATOLOGICAL/ONCOLOGICAL Hx Anemia: No Hx Human Immunodeficiency Virus (HIV): No Hx Sickle Cell Disease: No - INTEGUMENTARY Hx Dermatological Problems: No - MUSCULOSKELETAL/RHEUMATOLOGICAL Hx Arthritis: Yes Hx Fractures: No Hx Osteoporosis: No Hx Rheumatoid Arthritis: No - GASTROINTESTINAL Hx Crohn's Disease: No Hx Diverticulitis: No Hx Gall Bladder Disease: No Hx Gastritis: No - GENITOURINARY/GYNECOLOGICAL Hx Sexually Transmitted Disorders: No - PSYCHIATRIC Hx Anxiety: No Hx Bipolar Disorder: No Hx Depression: No Hx Paranoia: No Hx Post Traumatic Stress Disorder: No Hx Schizophrenia: No Hx Substance Use: No - SURGICAL HISTORY Hx Appendectomy: No Hx Carotid Endarterectomy: No Hx Cholecystectomy: Yes Hx Coronary Artery Bypass Graft: No Hx Coronary Stent: No Hx Tonsillectomy: No - ANESTHESIA Hx Anesthesia: Yes Hx Anesthesia Reactions: Yes Hx Malignant Hyperthermia: No Meds Allergies/Adverse Reactions: Allergies Allergy/AdvReac Type Severity Reaction Status Date / Time No Known Allergies Allergy Verified 02/15/18 05:28 Physical Exam - Constitutional Appears: No Acute Distress - Head Exam Head Exam: ATRAUMATIC, NORMAL INSPECTION, NORMOCEPHALIC - Eye Exam Eye Exam: EOMI, Normal appearance Pupil Exam: NORMAL ACCOMODATION - ENT Exam ENT Exam: Mucous Membranes Moist, Normal Exam - Neck Exam Neck exam: Positive for: Full Rom, Normal Inspection - Respiratory Exam Respiratory Exam: Decreased Breath Sounds, Rales. absent: Accessory Muscle Use , Wheezes, Respiratory Distress - Cardiovascular Exam Cardiovascular Exam: REGULAR RHYTHM, +S1, +S2. absent: Bradycardia, Tachycardia - GI/Abdominal Exam GI & Abdominal Exam: Normal Bowel Sounds, Soft, Tenderness - Extremities Exam Extremities exam: Positive for: full ROM, normal inspection. Negative for: pedal edema - Back Exam Back exam: FULL ROM, NORMAL INSPECTION. absent: CVA tenderness (L), CVA tenderness (R) - Neurological Exam Neurological exam: Alert, CN II-XII Intact, Oriented x3, Reflexes Normal - Psychiatric Exam Psychiatric exam: Normal Affect, Normal Mood - Skin Skin Exam: Dry, Intact, Normal Color, Warm Additional comments: surgical scars from laparoscopic cholecystectomy. no opening, purulence. Results - Vital Signs Recent Vital Signs: Last Vital Signs Temp 97.8 F 02/15/18 05:23 Pulse 68 02/15/18 13:32 Resp 18 02/15/18 13:32 BP 151/78 H 02/15/18 13:32 Pulse Ox 100 02/15/18 13:32 - Labs Result Diagrams: 02/15/18 06:13 02/15/18 06:13 Labs: Laboratory Results - last 24 hr 02/15/18 02/15/18 02/15/18 06:13 06:13 06:13 WBC 9.1 RBC 3.56 L Hgb 10.7 L Hct 31.6 L MCV 88.8 MCH 30.1 MCHC 33.8 RDW 15.4 H Plt Count 170 MPV 8.6 Neut % (Auto) 73.0 Lymph % (Auto) 14.9 L Crook % (Auto) 7.2 Eos % (Auto) 3.6 Baso % (Auto) 1.3 Neut # (Auto) 6.7 Lymph # (Auto) 1.4 Crook # (Auto) 0.7 Eos # (Auto) 0.3 Baso # (Auto) 0.1 PT 16.7 H INR 1.5 APTT 27 Sodium 124 L Potassium 4.6 Chloride 80 L Carbon Dioxide 30 Anion Gap 19 BUN 45 H Creatinine 6.9 H Est GFR ( Amer) 10 Est GFR (Non-Af Amer) 8 Random Glucose 106 Calcium 8.4 L Total Bilirubin 1.0 AST 508 H D ALT 744 H D Alkaline Phosphatase 129 H Total Creatine Kinase 440 H CK-MB (Mass) 1.53 Troponin I 0.0450 Total Protein 6.0 L Albumin 3.4 L Globulin 2.6 Albumin/Globulin Ratio 1.3 Amylase 74 Lipase 53 Acetaminophen 02/15/18 13:29 WBC RBC Hgb Hct MCV MCH MCHC RDW Plt Count MPV Neut % (Auto) Lymph % (Auto) Crook % (Auto) Eos % (Auto) Baso % (Auto) Neut # (Auto) Lymph # (Auto) Crook # (Auto) Eos # (Auto) Baso # (Auto) PT INR APTT Sodium Potassium Chloride Carbon Dioxide Anion Gap BUN Creatinine Est GFR ( Amer) Est GFR (Non-Af Amer) Random Glucose Calcium Total Bilirubin AST ALT Alkaline Phosphatase Total Creatine Kinase CK-MB (Mass) Troponin I Total Protein Albumin Globulin Albumin/Globulin Ratio Amylase Lipase Acetaminophen < 10.0 L Assessment & Plan - Assessment and Plan (Free Text) Assessment: 1. Transaminitis etiology: possibly related to medication, chf exacerbation, former history of alcohol abuse (last drink 4 years ago) simvastatin held, f/u CPK Medications metabolized by liver including benadryl, benzodiazepines, tylenol, antibiotics, toradol check hepatitis panel check GGT panel Check tylenol level, negative Check blood alcohol levels blood cultures x 2 urinalysis/urine abdominal US: GI consult: Dr. Perez for transamnitis, CHF, ESRD Patient denies herbals; OTC medications Possible sign of CHF exacerbation will check proBNP YULI Q6H first YULI (troponin I negative). 2. Hyponatremia serum osmolarity, urine osm, urine sodium, urine chloride ESRD ([facility]) Nephrology Dr. Banks No IV fluids. given consideration for CHF with EF <35% lasix 20mg qd 3. Possible heart failure exacerbation telemetry cardiac enzymes with YULI Q6H Fluid restriction 1.5 ml daily weight strict intake/output echo f/u stress test (2013 No significant/stress, normal perfusion) echo 06/2017: mild-moderate LV systole heart 4. history of cholelithiasis 01/27/18 laparoscopic nickolas abdominal US: no CBD dilatation CT 5. ESRD M/W/F consent in chart Nephrology Consult: Dr. Banks's Group consulted 6. Hypothyroidism f/u TSH in AM f/u free T4 7. Hypertension Check BP start Coreg 8. Hyperlipidemia Stop statin secondary to LFTs 9. Anemia of Chronic disease f/u Iron studies 10: history of heavy alcohol use quit 4-5 years ago-> heavy use check blood alcohol level abdominal US: no gallbladder, no CBD dilatation 11: Prophylactic measure SCDs bilateral pepcid 20 mg POQD heparin 5,000 u SC Q12H PT/OT eval 12. Urinary retention, history renal US/bladder US - Date & Time Date: 02/15/18 Time: 16:21 <Keke He V - Last Filed: 02/15/18 20:06> Results - Vital Signs Recent Vital Signs: Last Vital Signs Temp 98 F 02/15/18 17:58 Pulse 76 02/15/18 17:58 Resp 18 02/15/18 17:58 BP 166/89 H 02/15/18 17:58 Pulse Ox 98 02/15/18 17:58 - Labs Result Diagrams: 02/15/18 06:13 02/15/18 06:13 Labs: Laboratory Results - last 24 hr 02/15/18 02/15/18 02/15/18 06:13 06:13 06:13 WBC 9.1 RBC 3.56 L Hgb 10.7 L Hct 31.6 L MCV 88.8 MCH 30.1 MCHC 33.8 RDW 15.4 H Plt Count 170 MPV 8.6 Neut % (Auto) 73.0 Lymph % (Auto) 14.9 L Crook % (Auto) 7.2 Eos % (Auto) 3.6 Baso % (Auto) 1.3 Neut # (Auto) 6.7 Lymph # (Auto) 1.4 Crook # (Auto) 0.7 Eos # (Auto) 0.3 Baso # (Auto) 0.1 PT 16.7 H INR 1.5 APTT 27 Sodium 124 L Potassium 4.6 Chloride 80 L Carbon Dioxide 30 Anion Gap 19 BUN 45 H Creatinine 6.9 H Est GFR ( Amer) 10 Est GFR (Non-Af Amer) 8 Random Glucose 106 Serum Osmolality Calcium 8.4 L Magnesium Iron TIBC % Saturation Total Bilirubin 1.0 GGT AST 508 H D ALT 744 H D Alkaline Phosphatase 129 H Total Creatine Kinase 440 H CK-MB (Mass) 1.53 Troponin I 0.0450 NT-Pro-B Natriuret Pep Total Protein 6.0 L Albumin 3.4 L Globulin 2.6 Albumin/Globulin Ratio 1.3 Amylase 74 Lipase 53 Urine Color Urine Clarity Urine pH Ur Specific Ranger Urine Protein Urine Glucose (UA) Urine Ketones Urine Blood Urine Nitrate Urine Bilirubin Urine Urobilinogen Ur Leukocyte Esterase Urine WBC (Auto) Urine RBC (Auto) Ur Squamous Epith Cells Urine Osmolality Ur Random Sodium Acetaminophen Alcohol, Quantitative 02/15/18 02/15/18 02/15/18 13:29 13:29 14:50 WBC RBC Hgb Hct MCV MCH MCHC RDW Plt Count MPV Neut % (Auto) Lymph % (Auto) Crook % (Auto) Eos % (Auto) Baso % (Auto) Neut # (Auto) Lymph # (Auto) Crook # (Auto) Eos # (Auto) Baso # (Auto) PT INR APTT Sodium Potassium Chloride Carbon Dioxide Anion Gap BUN Creatinine Est GFR ( Amer) Est GFR (Non-Af Amer) Random Glucose Serum Osmolality Calcium Magnesium 2.1 Iron TIBC % Saturation Total Bilirubin GGT 232 H AST ALT Alkaline Phosphatase Total Creatine Kinase CK-MB (Mass) Troponin I NT-Pro-B Natriuret Pep Total Protein Albumin Globulin Albumin/Globulin Ratio Amylase Lipase Urine Color Urine Clarity Urine pH Ur Specific Ranger Urine Protein Urine Glucose (UA) Urine Ketones Urine Blood Urine Nitrate Urine Bilirubin Urine Urobilinogen Ur Leukocyte Esterase Urine WBC (Auto) Urine RBC (Auto) Ur Squamous Epith Cells Urine Osmolality Ur Random Sodium Acetaminophen < 10.0 L Alcohol, Quantitative 02/15/18 02/15/18 02/15/18 15:46 15:50 16:09 WBC RBC Hgb Hct MCV MCH MCHC RDW Plt Count MPV Neut % (Auto) Lymph % (Auto) Crook % (Auto) Eos % (Auto) Baso % (Auto) Neut # (Auto) Lymph # (Auto) Crook # (Auto) Eos # (Auto) Baso # (Auto) PT INR APTT Sodium Potassium Chloride Carbon Dioxide Anion Gap BUN Creatinine Est GFR ( Amer) Est GFR (Non-Af Amer) Random Glucose Serum Osmolality 281 Calcium Magnesium Iron TIBC % Saturation Total Bilirubin GGT AST ALT Alkaline Phosphatase Total Creatine Kinase CK-MB (Mass) Troponin I NT-Pro-B Natriuret Pep 34867 H Total Protein Albumin Globulin Albumin/Globulin Ratio Amylase Lipase Urine Color Yellow Urine Clarity Clear Urine pH 8.0 Ur Specific Ranger 1.008 Urine Protein 100 Urine Glucose (UA) 1+ H Urine Ketones Negative Urine Blood Negative Urine Nitrate Negative Urine Bilirubin Negative Urine Urobilinogen Normal Ur Leukocyte Esterase Neg Urine WBC (Auto) 1 Urine RBC (Auto) < 1 Ur Squamous Epith Cells < 1 Urine Osmolality Ur Random Sodium Acetaminophen Alcohol, Quantitative < 10 02/15/18 02/15/18 02/15/18 16:09 16:09 16:16 WBC RBC Hgb Hct MCV MCH MCHC RDW Plt Count MPV Neut % (Auto) Lymph % (Auto) Crook % (Auto) Eos % (Auto) Baso % (Auto) Neut # (Auto) Lymph # (Auto) Crook # (Auto) Eos # (Auto) Baso # (Auto) PT INR APTT Sodium Potassium Chloride Carbon Dioxide Anion Gap BUN Creatinine Est GFR ( Amer) Est GFR (Non-Af Amer) Random Glucose Serum Osmolality Calcium Magnesium Iron 77 TIBC 250 % Saturation 31 Total Bilirubin GGT AST ALT Alkaline Phosphatase Total Creatine Kinase 463 H CK-MB (Mass) 1.44 Troponin I 0.0410 NT-Pro-B Natriuret Pep Total Protein Albumin Globulin Albumin/Globulin Ratio Amylase Lipase Urine Color Urine Clarity Urine pH Ur Specific Ranger Urine Protein Urine Glucose (UA) Urine Ketones Urine Blood Urine Nitrate Urine Bilirubin Urine Urobilinogen Ur Leukocyte Esterase Urine WBC (Auto) Urine RBC (Auto) Ur Squamous Epith Cells Urine Osmolality 284 L Ur Random Sodium 73 Acetaminophen Alcohol, Quantitative Attending/Attestation - Attestation I have personally seen and examined this patient.: Yes I have fully participated in the care of the patient.: Yes I have reviewed all pertinent clinical information: Yes Notes (Text): Patient seen, examined and case discussed with day-time resident. Patient with prior history of ESRD (M/W/F), chronic systolic heart failure (EF< 30 percent per 07/08), history of cholelithiasis, and underwent lap chol on , hypothyroidism, hypertension, lipid disorder comes following abdominal pain X15 days associated nausea and vomitting, non-bloody and shortness of breathe. Patient reports after his hospitalization wherein he underwent lap chol for chronic cholecystitis. He had had abdominal pain with associated nausea and vomitting. He reports he has shorten the amount of food he eats but he still gets nausea. Patient reports he eats a little bit of every thing including cheese (queso). He denies any special herbal supplements except for multivitamin. patient denies alcohol, but was former heavy drinker, quit about 4 years ago. Patient does not smell like alcohol. Patient also denies using any over the counter tylenol nor NSAIDs for any pain relief. Patient reports he takes his medications which he has at bedside including Coreg, Enalapril, and Simvastatin. Patient reports for the past four days he is unable to sleep because of his abdominal pain. He reports he has not missed his dialysis and is compliant. Dialysis consent obtained, witnessed by ED Nurse, Gilberto; patient reports he is usually friday, friday, and friday and followed by Dr. Banks' s group. Please note: patient DID NOT receive Magnesium and Potassium IV supplements. The orders were discontinued and I personally spoke with Gilberto, the [employer] taking care of the patient. I also did not order Zofran for the patient as well. We have ordered additional blood work to clarify why the liver function tests are high. We have discontinued patient's statin. Patient was in the ED on with elevated LFTs; had received Reglan, Toradol, Bentyl and fluids for abdominal pain, which could influence the uptrend in LFTs? I have upgraded patient to telemetry for possible CHF exacerbation, elevated probnp, chest xray shows some congestion pending offical report at time of my exam. Discussed admitting orders with the day-time resident. 1. Transaminitis Assessment/Plan * GI consult: Dr. Perez for transamnitis, in patient with CHF and ESRD * etiology: possibly related to medications, chf exacerbation affecting the liver, patient is former history of alcohol abuse (last drink 4 years ago); acute phase reactant? * Patient denies herbals; OTC medications, denies alcohol, with prior history of cholelithiasis * Patient's home medicationsimvastatin held, f/u CPK * We have held medications metabolized by liver including benadryl, benzodiazepines, tylenol, antibiotics, toradol, anti-emetics----Please check hepatic impairment of medications prior to prescribing medications. Nursing communication has been ordered * check hepatitis panel * check GGT panel * Tylenol level: negative * Check blood alcohol levels * Ordered for blood cultures x 2,urinalysis/urine culture * Abdominal US (02/15/18): stable limited abdomen ultraounds status post prior cholecystectomy. Normal CBD caliber. No prominent intrahepatic biliary dilatation. partial imaging of the pancreas and marked right renal atrophy again evident * Ct abdomen/pelvis (02/12/18): cholecystectomy. mild stranding in the gallbladder fossa most likely post surgical. Nonspecific trace ascites. No fluid collection. No bowel obstruction or acute colitis. Mildly thick walled probably secondary to nondistension. Bilateral pleural effusions with bibasilar atelectasis. 2. Hyponatremia * Nephrology Dr. Banks for ESRD, and hyponatremia * Ordered serum osmolarity, urine osm, urine sodium, urine chloride * Scheduled for ESRD (MWF) as outpatient * Consent for dialysis in the chart * No IV fluids. given consideration for CHF with EF <35% * Start low dose Lasix 20mg PO daily 3. Possible heart failure exacerbation * upgraded to telemetry * cardiac enzymes with YULI Q6H * Fluid restriction 1.5 ml * daily weight * strict intake/output * Ordered for echo; echo 06/2017: mild-moderate LV systole heart * stress test (2013 No significant/stress, normal perfusion) * Continue patient's coreg, enalapril 4. History of cholelithiasis Status post cholecystectomy * Surgery (Dr. Moore) resident came to evaluate the patient, do not believe the elevated LFTS are related to the surgery * Abdominal US (02/15/18): stable limited abdomen ultraounds status post prior cholecystectomy. Normal CBD caliber. No prominent intrahepatic biliary dilatation. partial imaging of the pancreas and marked right renal atrophy again evident * Ct abdomen/pelvis (02/12/18): cholecystectomy. mild stranding in the gallbladder fossa most likely post surgical. Nonspecific trace ascites. No fluid collection. No bowel obstruction or acute colitis. Mildly thick walled probably secondary to nondistension. Bilateral pleural effusions with bibasilar atelectasis. * Bilirubin not high; check GGT 5. ESRD M/W/F * Dialysis consent obtained in chart * Nephrology Consult: Dr. Banks's Group consulted 6. History of Hypothyroidism * f/u TSH in AM, f/u free T4 * C/w home medication Levothyroxine 7. History of Hypertension * Restart patient's coreg and enalapril 8. History of Hyperlipidemia * Stopped statin secondary to LFTs 9. Anemia of Chronic disease * f/u Iron studies, folate, b12, reticulocyte count, haptoglobin 10. History of heavy alcohol use * patient quit 4-5 years ago-> heavy use, does not smell like alcohol on exam * check blood alcohol level * Abdominal US (02/15/18): stable limited abdomen ultraounds status post prior cholecystectomy. Normal CBD caliber. No prominent intrahepatic biliary dilatation. partial imaging of the pancreas and marked right renal atrophy again evident 11. Urinary retention, history * Ordered for renal US/bladder US * patient has prior history of urinary retention in last hospitalization * c/w flomax 12. Prophylactic measure * SCDs bilateral * Pepcid 20 mg POQD * Heparin 5,000 u SC Q12H * PT/OT eval
[2018-02-15] MEDS ORDERED: Magnesium Sulfate 1 gm in D5W 1 GM/100 ML BAG IVPB ONE ×2 (14:31→14:46)
[2018-02-15] MEDS ORDERED: Potassium Chloride 20 mEq 100 ML ONE (14:45)
[2018-02-15 15:58] LABS: SQUAMOUS EPITHIAL < 1 /hpf (0-5); URINE BILIRUBIN NEGATIVE (NEGATIVE); URINE BLOOD NEGATIVE (NEGATIVE); URINE CLARITY Clear (Clear); URINE COLOR Yellow (YELLOW); URINE GLUCOSE (UA) 1+ mg/dL (Normal); URINE LEUKOCYTE ESTERASE NEG Leu/uL (Negative); URINE UROBILINOGEN NORMAL mg/dL (0.2-1.0)
[2018-02-15 16:03] LABS: URINE PROTEIN 100 mg/dL (NEGATIVE)
[2018-02-15 16:32] LABS: IRON 77 ug/dL (49-181)
[2018-02-15 16:46] LABS: % IRON SATURATION 31 (20-55); TOTAL IRON BINDING CAPACITY 250 ug/dL (250-450)
[2018-02-15 16:49] LABS: CK-MB 1.44 ng/mL (0.0-3.38); TROPONIN I 0.041 ng/mL (0.00-0.120)
[2018-02-15 17:01] LABS: B-TYPE NATRIURETIC PEPTIDE 67500 pg/mL (0-900)
[2018-02-15 17:03] LABS: OSMOLALITY,URINE 284 mosm/kg (300-1000)
--- NOTE | 2018-02-15 17:58 | RAD ---
HISTORY: shortness of breathe COMPARISON: Portable chest 01/26/2018. FINDINGS: LUNGS: Mildly diminished inspiratory volume is noted. Nevertheless, no airspace disease identified bilaterally. PLEURA: No significant pleural effusion identified, no pneumothorax apparent. CARDIOVASCULAR: Borderline cardiomegaly reiterated. No pulmonary vascular congestion. OSSEOUS STRUCTURES: No significant abnormalities. VISUALIZED UPPER ABDOMEN: Normal. OTHER FINDINGS: None. IMPRESSION: Borderline cardiomegaly. No acute infiltrate bilaterally. Diminished inspiratory volume noted.
[2018-02-15 21:50] LABS: CK-MB 1.55 ng/mL (0.0-3.38); TROPONIN I 0.03 ng/mL (0.00-0.120)
[2018-02-16 05:43] LABS: INR 1.4; PROTHROMBIN TIME 15.5 SECONDS (9.7-12.2)
[2018-02-16 05:46] LABS: % IRON SATURATION 25 (20-55); TOTAL IRON BINDING CAPACITY 235 ug/dL (250-450)
[2018-02-16 05:57] LABS: FREE T4 1.66 ng/dL (0.78-2.19)
[2018-02-16] MEDS ORDERED: Levothyroxine 125 MCG TAB PO SCH (06:30)
[2018-02-16 06:44] LABS: FOLATE 15.2 ng/mL
[2018-02-16 08:06] LABS: HEPATITIS B SURFACE AG Negative (NEGATIVE)
[2018-02-16 08:12] LABS: HEPATITIS A IGM NEGATIVE (NEGATIVE); HEPATITIS B CORE AB NEGATIVE (NEGATIVE)
[2018-02-16 08:23] LABS: HEPATITIS C ANTIBODY NEGATIVE (NEGATIVE)
[2018-02-16] MEDS ORDERED: Epoetin Alfa 10,000 unit/ml Dialysis IV SCH (09:00)
--- NOTE | 2018-02-16 10:55 | CP.PCM.CON ---
History of Present Illness - History of Present Illness History of Present Illness: GI Service Consult CC: service consult requested for abnl LFTs and abdominal pain. S/P Lap Jayla 2 weeks ago for cholecystitis. Was discharged with normal LFTs. Developed orthopnea, constipation, epigastric pain when laying down over past 2 days so patient came to ER. ESRD on dialysis, CHF with markedly elevated BNP. Hepatitis profile normal. CT and Sono- Nondilated CBD, S/P cholecystectomy, normal appearing liver. My impression and recommendations were discussed with the medical attending today. Review of Systems - Constitutional Constitutional: As Per HPI, Anorexia - Cardiovascular Cardiovascular: Orthopnea. absent: Chest Pain, Pedal Edema - Respiratory Respiratory: Dyspnea - Gastrointestinal Gastrointestinal: Abdominal Pain, Constipation - Genitourinary Genitourinary: Difficulty Urinating Past Patient History - Infectious Disease Hx of Infectious Diseases: None - Past Medical History & Family History Past Medical History?: Yes - Past Social History Smoking Status: Unknown If Ever Smoked - CARDIAC Hx Cardiac Disorders: Yes Hx Atrial Fibrillation: No Hx Cardia Arrhythmia: No Hx Congestive Heart Failure: No Hx Hypercholesterolemia: No Hx Hypertension: Yes Hx Mitral Valve Prolapse: No Hx Pacemaker: No Hx Peripheral Edema: Yes (left arm and hand edema) - PULMONARY Hx Respiratory Disorders: No - NEUROLOGICAL Hx Neurological Disorder: No Hx Alzheimer's Disease: No Hx Dementia: No Hx Migraine: No Hx Multiple Sclerosis: No Hx Parkinson's Disease: No Hx Seizures: No Hx Transient Ischemic Attacks (TIA): No - HEENT Hx HEENT Problems: No - RENAL Hx Chronic Kidney Disease: Yes Hx Kidney Stones: No - ENDOCRINE/METABOLIC Hx Endocrine Disorders: Yes Hx Hyperthyroidism: No Hx Hypothyroidism: Yes - HEMATOLOGICAL/ONCOLOGICAL Hx Blood Disorders: No Hx Anemia: No Hx Human Immunodeficiency Virus (HIV): No Hx Sickle Cell Disease: No - INTEGUMENTARY Hx Dermatological Problems: No - MUSCULOSKELETAL/RHEUMATOLOGICAL Hx Musculoskeletal Disorders: Yes Hx Arthritis: Yes Hx Falls: No Hx Fractures: No Hx Osteoporosis: No Hx Rheumatoid Arthritis: No - GASTROINTESTINAL Hx Gastrointestinal Disorders: No Hx Crohn's Disease: No Hx Diverticulitis: No Hx Gall Bladder Disease: No Hx Gastritis: No - GENITOURINARY/GYNECOLOGICAL Hx Genitourinary Disorders: No Hx Sexually Transmitted Disorders: No - PSYCHIATRIC Hx Psychophysiologic Disorder: No Hx Anxiety: No Hx Bipolar Disorder: No Hx Depression: No Hx Paranoia: No Hx Post Traumatic Stress Disorder: No Hx Schizophrenia: No Hx Substance Use: No - SURGICAL HISTORY Hx Surgeries: Yes Hx Appendectomy: No Hx Carotid Endarterectomy: No Hx Cholecystectomy: Yes Hx Coronary Artery Bypass Graft: No Hx Coronary Stent: No Hx Tonsillectomy: No - ANESTHESIA Hx Anesthesia: Yes Hx Anesthesia Reactions: Yes Hx Malignant Hyperthermia: No Meds Allergies/Adverse Reactions: Allergies Allergy/AdvReac Type Severity Reaction Status Date / Time No Known Allergies Allergy Verified 02/15/18 05:28 - Medications Medications: Current Medications Calcium Acetate (Phoslo) 667 mg PO TID [facility] Last Admin: 02/16/18 10:37 Dose: 667 mg Carvedilol (Coreg) 6.25 mg PO BID [facility] Last Admin: 02/15/18 17:50 Dose: 6.25 mg Enalapril Maleate (Vasotec) 2.5 mg PO DAILY [facility] Epoetin Michael (Procrit) 10,000 unit IV MWF [facility] Famotidine (Pepcid) 20 mg PO DAILY [facility] Last Admin: 02/16/18 10:37 Dose: 20 mg Heparin Sodium (Porcine) (Heparin) 5,000 units SC Q12 [facility] Last Admin: 02/16/18 10:37 Dose: 5,000 units Levothyroxine Sodium (Synthroid) 125 mcg PO DAILY@0630 [facility] Last Admin: 02/16/18 07:00 Dose: 125 mcg Tamsulosin HCl (Flomax) 0.4 mg PO DAILY [facility] Last Admin: 02/16/18 10:37 Dose: 0.4 mg Physical Exam - Constitutional Appears: Well, No Acute Distress - Head Exam Head Exam: NORMOCEPHALIC - Eye Exam Eye Exam: absent: Scleral icterus - Neck Exam Neck exam: Positive for: Normal Inspection. Negative for: Thyromegaly Additional comments: No HJR - Respiratory Exam Respiratory Exam: NORMAL BREATHING PATTERN - Cardiovascular Exam Cardiovascular Exam: REGULAR RHYTHM - GI/Abdominal Exam GI & Abdominal Exam: Soft. absent: Guarding, Mass, Organomegaly, Rebound (Obese ), Tenderness - Rectal Exam Rectal Exam: Deferred - Extremities Exam Extremities exam: Positive for: normal inspection Results - Vital Signs Recent Vital Signs: Last Vital Signs Temp 97.5 F L 02/16/18 08:22 Pulse 68 02/16/18 08:33 Resp 20 02/16/18 08:22 BP 148/83 02/16/18 08:22 Pulse Ox 100 02/16/18 08:22 - Labs Result Diagrams: 02/15/18 06:13 02/15/18 06:13 Labs: Laboratory Results - last 24 hr 02/15/18 02/15/18 02/15/18 13:29 13:29 13:29 Retic Count Haptoglobin PT INR APTT POC Glucose (mg/dL) Serum Osmolality Phosphorus Magnesium Iron TIBC % Saturation Ferritin GGT 232 H Total Creatine Kinase CK-MB (Mass) Troponin I NT-Pro-B Natriuret Pep Vitamin B12 Folate Free T4 TSH 3rd Generation Urine Color Urine Clarity Urine pH Ur Specific [place] Urine Protein Urine Glucose (UA) Urine Ketones Urine Blood Urine Nitrate Urine Bilirubin Urine Urobilinogen Ur Leukocyte Esterase Urine WBC (Auto) Urine RBC (Auto) Ur Squamous Epith Cells Urine Osmolality Ur Random Sodium Acetaminophen < 10.0 L Alcohol, Quantitative Hepatitis A IgM Ab Negative Hep Bs Antigen Negative Hep B Core IgM Ab Negative Hepatitis C Antibody Negative 02/15/18 02/15/18 02/15/18 14:50 15:46 15:50 Retic Count Haptoglobin PT INR APTT POC Glucose (mg/dL) Serum Osmolality Phosphorus Magnesium 2.1 Iron TIBC % Saturation Ferritin GGT Total Creatine Kinase CK-MB (Mass) Troponin I NT-Pro-B Natriuret Pep 93436 H Vitamin B12 Folate Free T4 TSH 3rd Generation Urine Color Yellow Urine Clarity Clear Urine pH 8.0 Ur Specific [place] 1.008 Urine Protein 100 Urine Glucose (UA) 1+ H Urine Ketones Negative Urine Blood Negative Urine Nitrate Negative Urine Bilirubin Negative Urine Urobilinogen Normal Ur Leukocyte Esterase Neg Urine WBC (Auto) 1 Urine RBC (Auto) < 1 Ur Squamous Epith Cells < 1 Urine Osmolality Ur Random Sodium Acetaminophen Alcohol, Quantitative < 10 Hepatitis A IgM Ab Hep Bs Antigen Hep B Core IgM Ab Hepatitis C Antibody 02/15/18 02/15/18 02/15/18 16:09 16:09 16:09 Retic Count Haptoglobin PT INR APTT POC Glucose (mg/dL) Serum Osmolality 281 Phosphorus Magnesium Iron 77 TIBC 250 % Saturation 31 Ferritin GGT Total Creatine Kinase CK-MB (Mass) Troponin I NT-Pro-B Natriuret Pep Vitamin B12 Folate Free T4 TSH 3rd Generation Urine Color Urine Clarity Urine pH Ur Specific [place] Urine Protein Urine Glucose (UA) Urine Ketones Urine Blood Urine Nitrate Urine Bilirubin Urine Urobilinogen Ur Leukocyte Esterase Urine WBC (Auto) Urine RBC (Auto) Ur Squamous Epith Cells Urine Osmolality 284 L Ur Random Sodium 73 Acetaminophen Alcohol, Quantitative Hepatitis A IgM Ab Hep Bs Antigen Hep B Core IgM Ab Hepatitis C Antibody 02/15/18 02/15/18 02/15/18 16:16 21:23 21:23 Retic Count 4.4 H D Haptoglobin PT INR APTT POC Glucose (mg/dL) Serum Osmolality Phosphorus Magnesium Iron TIBC % Saturation Ferritin 4430.0 GGT Total Creatine Kinase 463 H 291 H CK-MB (Mass) 1.44 1.55 Troponin I 0.0410 0.0300 NT-Pro-B Natriuret Pep Vitamin B12 Folate Free T4 TSH 3rd Generation Urine Color Urine Clarity Urine pH Ur Specific [place] Urine Protein Urine Glucose (UA) Urine Ketones Urine Blood Urine Nitrate Urine Bilirubin Urine Urobilinogen Ur Leukocyte Esterase Urine WBC (Auto) Urine RBC (Auto) Ur Squamous Epith Cells Urine Osmolality Ur Random Sodium Acetaminophen Alcohol, Quantitative Hepatitis A IgM Ab Hep Bs Antigen Hep B Core IgM Ab Hepatitis C Antibody 02/15/18 02/16/18 02/16/18 21:35 05:15 05:15 Retic Count Haptoglobin PT 15.5 H INR 1.4 APTT 28 POC Glucose (mg/dL) 115 H Serum Osmolality Phosphorus 6.4 H Magnesium 2.5 H Iron TIBC % Saturation Ferritin GGT Total Creatine Kinase CK-MB (Mass) Troponin I NT-Pro-B Natriuret Pep Vitamin B12 > 1000 H Folate 15.2 Free T4 TSH 3rd Generation 9.89 H Urine Color Urine Clarity Urine pH Ur Specific [place] Urine Protein Urine Glucose (UA) Urine Ketones Urine Blood Urine Nitrate Urine Bilirubin Urine Urobilinogen Ur Leukocyte Esterase Urine WBC (Auto) Urine RBC (Auto) Ur Squamous Epith Cells Urine Osmolality Ur Random Sodium Acetaminophen Alcohol, Quantitative Hepatitis A IgM Ab Hep Bs Antigen Hep B Core IgM Ab Hepatitis C Antibody 02/16/18 02/16/18 02/16/18 05:15 05:15 06:16 Retic Count Haptoglobin 210.8 H PT INR APTT POC Glucose (mg/dL) 112 H Serum Osmolality Phosphorus Magnesium Iron TIBC 235 L % Saturation 25 Ferritin GGT Total Creatine Kinase CK-MB (Mass) Troponin I NT-Pro-B Natriuret Pep Vitamin B12 Folate Free T4 1.66 TSH 3rd Generation Urine Color Urine Clarity Urine pH Ur Specific [place] Urine Protein Urine Glucose (UA) Urine Ketones Urine Blood Urine Nitrate Urine Bilirubin Urine Urobilinogen Ur Leukocyte Esterase Urine WBC (Auto) Urine RBC (Auto) Ur Squamous Epith Cells Urine Osmolality Ur Random Sodium Acetaminophen Alcohol, Quantitative Hepatitis A IgM Ab Hep Bs Antigen Hep B Core IgM Ab Hepatitis C Antibody - Imaging and Cardiology CT scan - abdomen Status: Report reviewed by me US - abdomen Status: Report reviewed by me (Old reports reviewed for comparison) Assessment & Plan (1) Abdominal pain Assessment and Plan: Epigastric pain associated with orthopnea. Now resolved. Abdomen nontender. Possible passed gallstone post cholecystectomy rec: MRCP. Follow LFTs Status: Acute (2) ESRD (end stage renal disease) on dialysis Status: Acute (3) Abnormal liver enzymes Assessment and Plan: Passive congestive hepatopathy in setting of right sided heart failure vs. Hepatocellular disease. Gallstones unlikely rec: Echocardiogram, MRCP, monitor LFTs Status: Acute
[2018-02-16 12:43] LABS: ALB/GLOB RATIO 1.3 (1.0-2.1); ALBUMIN 3.6 g/dL (3.5-5.0); CALCIUM 8.4 mg/dl (8.6-10.4)
--- NOTE | 2018-02-16 12:45 | CP.PCM.CON ---
History of Present Illness - History of Present Illness History of Present Illness: [facility] esrd 67M presents with abdominal pain for 15 days. Patient states he started having this abdominal pain and swelling of abdomen after the surgery. Patient states he has mid-epigastric pain, with difficulty breathing. Patient states he has not been able to sleep well for the past 4 days due to abdominal pain. Patient also states that he feels like he has less energy. Patient states he has never had much swelling in his abdomen before. Patient states he never had issues with his liver and was never told of a family history of liver problems, cancer. Patient states that he is from [facility] and has not drank any alcohol since leaving [facility]. He said last drink was 4-5 years ago. Patient admits to having a smoking history. Patient denies fever, chills, cough, vomiting, nausea, diarrhea, constipation. Patient admits to abdominal pain. PMH: HTN, ESRD on HD MWF, hypothyroidism, systolic HF last known EF 36%, Hypercholesterolemia PSH: Left AV Fistula, 01/27/18 chronic cholecystitis s/p laparoscopic cholecystectomy Social Hx: Patient admits to smoking, states he used to drink a lot of ETOH in [facility] but quit about 4-5 years ago, denies illicit drug use Family Hx: sister due to renal failure. his brothers are healthy and well. Review of Systems - Review of Systems All systems: reviewed and no additional remarkable complaints except (as per hpi ) Past Patient History - Infectious Disease Hx of Infectious Diseases: None - Past Medical History & Family History Past Medical History?: Yes - Past Social History Smoking Status: Unknown If Ever Smoked - CARDIAC Hx Cardiac Disorders: Yes Hx Atrial Fibrillation: No Hx Cardia Arrhythmia: No Hx Congestive Heart Failure: No Hx Hypercholesterolemia: No Hx Hypertension: Yes Hx Mitral Valve Prolapse: No Hx Pacemaker: No Hx Peripheral Edema: Yes (left arm and hand edema) - PULMONARY Hx Respiratory Disorders: No - NEUROLOGICAL Hx Neurological Disorder: No Hx Alzheimer's Disease: No Hx Dementia: No Hx Migraine: No Hx Multiple Sclerosis: No Hx Parkinson's Disease: No Hx Seizures: No Hx Transient Ischemic Attacks (TIA): No - HEENT Hx HEENT Problems: No - RENAL Hx Chronic Kidney Disease: Yes Hx Kidney Stones: No - ENDOCRINE/METABOLIC Hx Endocrine Disorders: Yes Hx Hyperthyroidism: No Hx Hypothyroidism: Yes - HEMATOLOGICAL/ONCOLOGICAL Hx Blood Disorders: No Hx Anemia: No Hx Human Immunodeficiency Virus (HIV): No Hx Sickle Cell Disease: No - INTEGUMENTARY Hx Dermatological Problems: No - MUSCULOSKELETAL/RHEUMATOLOGICAL Hx Musculoskeletal Disorders: Yes Hx Arthritis: Yes Hx Falls: No Hx Fractures: No Hx Osteoporosis: No Hx Rheumatoid Arthritis: No - GASTROINTESTINAL Hx Gastrointestinal Disorders: No Hx Crohn's Disease: No Hx Diverticulitis: No Hx Gall Bladder Disease: No Hx Gastritis: No - GENITOURINARY/GYNECOLOGICAL Hx Genitourinary Disorders: No Hx Sexually Transmitted Disorders: No - PSYCHIATRIC Hx Psychophysiologic Disorder: No Hx Anxiety: No Hx Bipolar Disorder: No Hx Depression: No Hx Paranoia: No Hx Post Traumatic Stress Disorder: No Hx Schizophrenia: No Hx Substance Use: No - SURGICAL HISTORY Hx Surgeries: Yes Hx Appendectomy: No Hx Carotid Endarterectomy: No Hx Cholecystectomy: Yes Hx Coronary Artery Bypass Graft: No Hx Coronary Stent: No Hx Tonsillectomy: No - ANESTHESIA Hx Anesthesia: Yes Hx Anesthesia Reactions: Yes Hx Malignant Hyperthermia: No Meds Allergies/Adverse Reactions: Allergies Allergy/AdvReac Type Severity Reaction Status Date / Time No Known Allergies Allergy Verified 02/15/18 05:28 - Medications Medications: Current Medications Calcium Acetate (Phoslo) 667 mg PO TID [facility] Last Admin: 02/16/18 10:37 Dose: 667 mg Carvedilol (Coreg) 6.25 mg PO BID [facility] Last Admin: 02/16/18 11:00 Dose: Not Given Enalapril Maleate (Vasotec) 2.5 mg PO DAILY [facility] Last Admin: 02/16/18 11:00 Dose: Not Given Epoetin Michael (Procrit) 10,000 unit [place] [facility] Famotidine (Pepcid) 20 mg PO DAILY [facility] Last Admin: 02/16/18 10:37 Dose: 20 mg Heparin Sodium (Porcine) (Heparin) 5,000 units SC Q12 [facility] Last Admin: 02/16/18 10:37 Dose: 5,000 units Levothyroxine Sodium (Synthroid) 125 mcg PO DAILY@0630 [facility] Last Admin: 02/16/18 07:00 Dose: 125 mcg Tamsulosin HCl (Flomax) 0.4 mg PO DAILY [facility] Last Admin: 02/16/18 10:37 Dose: 0.4 mg Physical Exam - Constitutional Appears: Non-toxic, No Acute Distress, Chronically Ill - Head Exam Head Exam: NORMAL INSPECTION, NORMOCEPHALIC - Eye Exam Eye Exam: Normal appearance, PERRL - ENT Exam ENT Exam: Mucous Membranes Moist, Normal Exam - Neck Exam Neck exam: Positive for: Normal Inspection - Respiratory Exam Respiratory Exam: Decreased Breath Sounds, NORMAL BREATHING PATTERN - Cardiovascular Exam Cardiovascular Exam: REGULAR RHYTHM, RRR - GI/Abdominal Exam GI & Abdominal Exam: Diminished Bowel Sounds, Distended, Soft - Neurological Exam Neurological exam: Alert, Oriented x3 - Psychiatric Exam Psychiatric exam: Normal Affect, Normal Mood - Skin Skin Exam: Normal Color, Warm Results - Vital Signs Recent Vital Signs: Last Vital Signs Temp 97.5 F L 02/16/18 08:22 Pulse 68 02/16/18 08:33 Resp 20 02/16/18 08:22 BP 148/83 02/16/18 08:22 Pulse Ox 100 02/16/18 08:22 - Labs Result Diagrams: 02/15/18 06:13 02/16/18 11:22 Labs: Laboratory Results - last 24 hr 02/15/18 02/15/18 02/15/18 13:29 13:29 13:29 Retic Count Haptoglobin PT INR APTT Sodium Potassium Chloride Carbon Dioxide Anion Gap BUN Creatinine Est GFR ( Amer) Est GFR (Non-Af Amer) POC Glucose (mg/dL) Random Glucose Serum Osmolality Calcium Phosphorus Magnesium Iron TIBC % Saturation Ferritin Total Bilirubin GGT 232 H AST ALT Alkaline Phosphatase Total Creatine Kinase CK-MB (Mass) Troponin I NT-Pro-B Natriuret Pep Total Protein Albumin Globulin Albumin/Globulin Ratio Vitamin B12 Folate Free T4 TSH 3rd Generation Urine Color Urine Clarity Urine pH Ur Specific [place] Urine Protein Urine Glucose (UA) Urine Ketones Urine Blood Urine Nitrate Urine Bilirubin Urine Urobilinogen Ur Leukocyte Esterase Urine WBC (Auto) Urine RBC (Auto) Ur Squamous Epith Cells Urine Osmolality Ur Random Sodium Acetaminophen < 10.0 L Alcohol, Quantitative Hepatitis A IgM Ab Negative Hep Bs Antigen Negative Hep B Core IgM Ab Negative Hepatitis C Antibody Negative 02/15/18 02/15/18 02/15/18 14:50 15:46 15:50 Retic Count Haptoglobin PT INR APTT Sodium Potassium Chloride Carbon Dioxide Anion Gap BUN Creatinine Est GFR ( Amer) Est GFR (Non-Af Amer) POC Glucose (mg/dL) Random Glucose Serum Osmolality Calcium Phosphorus Magnesium 2.1 Iron TIBC % Saturation Ferritin Total Bilirubin GGT AST ALT Alkaline Phosphatase Total Creatine Kinase CK-MB (Mass) Troponin I NT-Pro-B Natriuret Pep 33173 H Total Protein Albumin Globulin Albumin/Globulin Ratio Vitamin B12 Folate Free T4 TSH 3rd Generation Urine Color Yellow Urine Clarity Clear Urine pH 8.0 Ur Specific [place] 1.008 Urine Protein 100 Urine Glucose (UA) 1+ H Urine Ketones Negative Urine Blood Negative Urine Nitrate Negative Urine Bilirubin Negative Urine Urobilinogen Normal Ur Leukocyte Esterase Neg Urine WBC (Auto) 1 Urine RBC (Auto) < 1 Ur Squamous Epith Cells < 1 Urine Osmolality Ur Random Sodium Acetaminophen Alcohol, Quantitative < 10 Hepatitis A IgM Ab Hep Bs Antigen Hep B Core IgM Ab Hepatitis C Antibody 02/15/18 02/15/18 02/15/18 16:09 16:09 16:09 Retic Count Haptoglobin PT INR APTT Sodium Potassium Chloride Carbon Dioxide Anion Gap BUN Creatinine Est GFR ( Amer) Est GFR (Non-Af Amer) POC Glucose (mg/dL) Random Glucose Serum Osmolality 281 Calcium Phosphorus Magnesium Iron 77 TIBC 250 % Saturation 31 Ferritin Total Bilirubin GGT AST ALT Alkaline Phosphatase Total Creatine Kinase CK-MB (Mass) Troponin I NT-Pro-B Natriuret Pep Total Protein Albumin Globulin Albumin/Globulin Ratio Vitamin B12 Folate Free T4 TSH 3rd Generation Urine Color Urine Clarity Urine pH Ur Specific [place] Urine Protein Urine Glucose (UA) Urine Ketones Urine Blood Urine Nitrate Urine Bilirubin Urine Urobilinogen Ur Leukocyte Esterase Urine WBC (Auto) Urine RBC (Auto) Ur Squamous Epith Cells Urine Osmolality 284 L Ur Random Sodium 73 Acetaminophen Alcohol, Quantitative Hepatitis A IgM Ab Hep Bs Antigen Hep B Core IgM Ab Hepatitis C Antibody 02/15/18 02/15/18 02/15/18 16:16 21:23 21:23 Retic Count 4.4 H D Haptoglobin PT INR APTT Sodium Potassium Chloride Carbon Dioxide Anion Gap BUN Creatinine Est GFR ( Amer) Est GFR (Non-Af Amer) POC Glucose (mg/dL) Random Glucose Serum Osmolality Calcium Phosphorus Magnesium Iron TIBC % Saturation Ferritin 4430.0 Total Bilirubin GGT AST ALT Alkaline Phosphatase Total Creatine Kinase 463 H 291 H CK-MB (Mass) 1.44 1.55 Troponin I 0.0410 0.0300 NT-Pro-B Natriuret Pep Total Protein Albumin Globulin Albumin/Globulin Ratio Vitamin B12 Folate Free T4 TSH 3rd Generation Urine Color Urine Clarity Urine pH Ur Specific [place] Urine Protein Urine Glucose (UA) Urine Ketones Urine Blood Urine Nitrate Urine Bilirubin Urine Urobilinogen Ur Leukocyte Esterase Urine WBC (Auto) Urine RBC (Auto) Ur Squamous Epith Cells Urine Osmolality Ur Random Sodium Acetaminophen Alcohol, Quantitative Hepatitis A IgM Ab Hep Bs Antigen Hep B Core IgM Ab Hepatitis C Antibody 02/15/18 02/16/18 02/16/18 21:35 05:15 05:15 Retic Count Haptoglobin PT 15.5 H INR 1.4 APTT 28 Sodium Potassium Chloride Carbon Dioxide Anion Gap BUN Creatinine Est GFR ( Amer) Est GFR (Non-Af Amer) POC Glucose (mg/dL) 115 H Random Glucose Serum Osmolality Calcium Phosphorus 6.4 H Magnesium 2.5 H Iron TIBC % Saturation Ferritin Total Bilirubin GGT AST ALT Alkaline Phosphatase Total Creatine Kinase CK-MB (Mass) Troponin I NT-Pro-B Natriuret Pep Total Protein Albumin Globulin Albumin/Globulin Ratio Vitamin B12 > 1000 H Folate 15.2 Free T4 TSH 3rd Generation 9.89 H Urine Color Urine Clarity Urine pH Ur Specific [place] Urine Protein Urine Glucose (UA) Urine Ketones Urine Blood Urine Nitrate Urine Bilirubin Urine Urobilinogen Ur Leukocyte Esterase Urine WBC (Auto) Urine RBC (Auto) Ur Squamous Epith Cells Urine Osmolality Ur Random Sodium Acetaminophen Alcohol, Quantitative Hepatitis A IgM Ab Hep Bs Antigen Hep B Core IgM Ab Hepatitis C Antibody 02/16/18 02/16/18 02/16/18 05:15 05:15 06:16 Retic Count Haptoglobin 210.8 H PT INR APTT Sodium Potassium Chloride Carbon Dioxide Anion Gap BUN Creatinine Est GFR ( Amer) Est GFR (Non-Af Amer) POC Glucose (mg/dL) 112 H Random Glucose Serum Osmolality Calcium Phosphorus Magnesium Iron TIBC 235 L % Saturation 25 Ferritin Total Bilirubin GGT AST ALT Alkaline Phosphatase Total Creatine Kinase CK-MB (Mass) Troponin I NT-Pro-B Natriuret Pep Total Protein Albumin Globulin Albumin/Globulin Ratio Vitamin B12 Folate Free T4 1.66 TSH 3rd Generation Urine Color Urine Clarity Urine pH Ur Specific [place] Urine Protein Urine Glucose (UA) Urine Ketones Urine Blood Urine Nitrate Urine Bilirubin Urine Urobilinogen Ur Leukocyte Esterase Urine WBC (Auto) Urine RBC (Auto) Ur Squamous Epith Cells Urine Osmolality Ur Random Sodium Acetaminophen Alcohol, Quantitative Hepatitis A IgM Ab Hep Bs Antigen Hep B Core IgM Ab Hepatitis C Antibody 02/16/18 02/16/18 11:22 11:58 Retic Count Haptoglobin PT INR APTT Sodium 122 L Potassium 4.7 Chloride 77 L Carbon Dioxide 28 Anion Gap 22 H BUN 55 H Creatinine 7.9 H* Est GFR ( Amer) 8 Est GFR (Non-Af Amer) 7 POC Glucose (mg/dL) 111 H Random Glucose 109 Serum Osmolality Calcium 8.4 L Phosphorus Magnesium Iron TIBC % Saturation Ferritin Total Bilirubin 1.2 GGT AST 502 H ALT 748 H Alkaline Phosphatase 136 H Total Creatine Kinase CK-MB (Mass) Troponin I NT-Pro-B Natriuret Pep Total Protein 6.3 Albumin 3.6 Globulin 2.7 Albumin/Globulin Ratio 1.3 Vitamin B12 Folate Free T4 TSH 3rd Generation Urine Color Urine Clarity Urine pH Ur Specific [place] Urine Protein Urine Glucose (UA) Urine Ketones Urine Blood Urine Nitrate Urine Bilirubin Urine Urobilinogen Ur Leukocyte Esterase Urine WBC (Auto) Urine RBC (Auto) Ur Squamous Epith Cells Urine Osmolality Ur Random Sodium Acetaminophen Alcohol, Quantitative Hepatitis A IgM Ab Hep Bs Antigen Hep B Core IgM Ab Hepatitis C Antibody Assessment & Plan (1) Abdominal pain Status: Acute (2) Abnormal liver enzymes Status: Acute (3) ESRD (end stage renal disease) on dialysis Status: Acute - Assessment and Plan (Free Text) Assessment: hd today, attempt max uf as tolerated elevated lfts possibly sec to congestive hepatopathy. check echo on chong no iv iron follow liver enzymes
--- NOTE | 2018-02-16 15:05 | CP.PCM.PN ---
<Makayla Corona - Last Filed: 02/16/18 17:12> Subjective - Date & Time of Evaluation Date of Evaluation: 02/16/18 Time of Evaluation: 10:00 - Subjective Subjective: Medicine Note for Hospitalist Service - Dr. Elton Yo Patient was seen and examined at bedside. Admitted to continued abdominal pain, improving but still present. Denied fever, chills, headache, chest pain, SOB, n /v/d/c, or urinary symptoms. Objective - Vital Signs/Intake and Output Vital Signs (last 24 hours): Temp Pulse Resp BP Pulse Ox 97.5 F L 64 20 148/83 100 02/16/18 08:22 02/16/18 12:00 02/16/18 08:22 02/16/18 08:22 02/16/18 08:22 Intake and Output: 02/16/18 02/16/18 06:59 18:59 Intake Total 575 Output Total 200 Balance 375 - Medications Medications: Current Medications Calcium Acetate (Phoslo) 667 mg PO TID [facility] Last Admin: 02/16/18 13:37 Dose: 667 mg Carvedilol (Coreg) 6.25 mg PO BID [facility] Last Admin: 02/16/18 11:00 Dose: Not Given Enalapril Maleate (Vasotec) 2.5 mg PO DAILY [facility] Last Admin: 02/16/18 11:00 Dose: Not Given Epoetin Michael (Procrit) 10,000 unit IV [facility] Famotidine (Pepcid) 20 mg PO DAILY [facility] Last Admin: 02/16/18 10:37 Dose: 20 mg Levothyroxine Sodium (Synthroid) 125 mcg PO DAILY@0630 [facility] Last Admin: 02/16/18 07:00 Dose: 125 mcg Tamsulosin HCl (Flomax) 0.4 mg PO DAILY [facility] Last Admin: 02/16/18 10:37 Dose: 0.4 mg - Labs Labs: 02/15/18 06:13 02/16/18 11:22 PT 15.5 SECONDS (9.7-12.2) H 02/16/18 05:15 INR 1.4 02/16/18 05:15 APTT 28 SECONDS (21-34) 02/16/18 05:15 - Additional Findings Additional findings: - Constitutional Appears: No Acute Distress - Head Exam Head Exam: ATRAUMATIC, NORMAL INSPECTION, NORMOCEPHALIC - Eye Exam Eye Exam: EOMI, Normal appearance Pupil Exam: NORMAL ACCOMODATION - ENT Exam ENT Exam: Mucous Membranes Moist, Normal Exam - Neck Exam Neck exam: Positive for: Full Rom, Normal Inspection - Respiratory Exam Respiratory Exam: Decreased Breath Sounds, Rales. absent: Accessory Muscle Use , Wheezes, Respiratory Distress - Cardiovascular Exam Cardiovascular Exam: REGULAR RHYTHM, +S1, +S2. absent: Bradycardia, Tachycardia - GI/Abdominal Exam GI & Abdominal Exam: Normal Bowel Sounds, Soft, Tenderness;; surgical scars from laparoscopic cholecystectomy. no opening, purulence, cellulitis noted - Extremities Exam Extremities exam: Positive for: full ROM, normal inspection. Negative for: pedal edema - Back Exam Back exam: FULL ROM, NORMAL INSPECTION. absent: CVA tenderness (L), CVA tenderness (R) - Neurological Exam Neurological exam: Alert, CN II-XII Intact, Oriented x3, Reflexes Normal - Psychiatric Exam Psychiatric exam: Normal Affect, Normal Mood - Skin Skin Exam: Dry, Intact, Normal Color, Warm Assessment and Plan - Assessment and Plan (Free Text) Plan: Transaminitis * GI consult: Dr. Perez for transamnitis, in patient with CHF and ESRD * Etiology: possibly related to medications, chf exacerbation affecting the liver, patient is former history of alcohol abuse (last drink 4 years ago); acute phase reactant; likely 2/2 CHF * Pending MRCP * Patient denies herbals; OTC medications, denies alcohol, with prior history of cholelithiasis. * We have held medications metabolized by liver including statin, benadryl, benzodiazepines, tylenol, antibiotics, toradol, anti-emetics----Please check hepatic impairment of medications prior to prescribing medications. Nursing communication has been ordered Imaging: * Abdominal US (02/15/18): stable limited abdomen ultraounds status post prior cholecystectomy. Normal CBD caliber. No prominent intrahepatic biliary dilatation. partial imaging of the pancreas and marked right renal atrophy again evident * Ct abdomen/pelvis (02/12/18): cholecystectomy. mild stranding in the gallbladder fossa most likely post surgical. Nonspecific trace ascites. No fluid collection. No bowel obstruction or acute colitis. Mildly thick walled probably secondary to nondistension. Bilateral pleural effusions with bibasilar atelectasis. Workup: * Tylenol level: negative * Hepatitis panel - negative * GGT: 223, elevated * CPK is downtrending History of cholelithiasis Status post cholecystectomy * Surgery (Dr. Moore) resident came to evaluate the patient, do not believe the elevated LFTS are related to the surgery * Abdominal US (02/15/18): stable limited abdomen ultraounds status post prior cholecystectomy. Normal CBD caliber. No prominent intrahepatic biliary dilatation. partial imaging of the pancreas and marked right renal atrophy again evident * Ct abdomen/pelvis (02/12/18): cholecystectomy. mild stranding in the gallbladder fossa most likely post surgical. Nonspecific trace ascites. No fluid collection. No bowel obstruction or acute colitis. Mildly thick walled probably secondary to nondistension. Bilateral pleural effusions with bibasilar atelectasis. * Bilirubin not high; GGT: 223, elevated Hyponatremia * Nephrology Dr. Banks for ESRD, and hyponatremia * Ordered serum osmolarity, urine osm, urine sodium, urine chloride * Scheduled for ESRD ([facility]) as outpatient * Consent for dialysis in the chart * No IV fluids. given consideration for CHF with EF <35% * Start low dose Lasix 20mg PO daily Possible heart failure exacerbation * upgraded to telemetry * cardiac enzymes with YULI Q6H * Fluid restriction 1.5 ml * daily weight * strict intake/output * Echo 06/2017: mild-moderate LV systole heart * stress test (2013 No significant/stress, normal perfusion) * Continue patient's coreg, enalapril * Pending repeat ECHO ESRD M/W/F * Dialysis consent obtained in chart * Nephrology Consult: Dr. [facility] consulted History of Hypothyroidism * C/w home medication Levothyroxine - will need repeat TSH, free T4 in 2-3 weeks as medication was restarted 3 weeks ago * TSH 9.89 History of Hypertension * Restart patient's coreg and enalapril History of Hyperlipidemia * Stopped statin secondary to LFTs Anemia of Chronic disease * Reticulocyte count 4.4, haptoglobin - 210.8 - acute phase reactants? History of heavy alcohol use * patient quit 4-5 years ago-> heavy use, does not smell like alcohol on exam * check blood alcohol level * Abdominal US (02/15/18): stable limited abdomen ultraounds status post prior cholecystectomy. Normal CBD caliber. No prominent intrahepatic biliary dilatation. partial imaging of the pancreas and marked right renal atrophy again evident Urinary retention, history * patient has prior history of urinary retention in last hospitalization * c/w flomax * Ordered for renal US/bladder US 12. Prophylactic measure * SCDs bilateral * Pepcid 20 mg POQD * Heparin 5,000 u SC Q12H * PT/OT Makayla Cartwright Dr., DO, PGY-1 <Elton Yo J - Last Filed: 02/16/18 20:18> Objective - Vital Signs/Intake and Output Vital Signs (last 24 hours): Temp Pulse Resp BP Pulse Ox 97.1 F L 64 16 170/84 H 96 02/16/18 18:00 02/16/18 19:30 02/16/18 20:00 02/16/18 20:00 02/16/18 20:00 - Medications Medications: Current Medications Calcium Acetate (Phoslo) 667 mg PO TID [facility] Last Admin: 02/16/18 19:08 Dose: Not Given Carvedilol (Coreg) 6.25 mg PO BID [facility] Last Admin: 02/16/18 19:07 Dose: Not Given Enalapril Maleate (Vasotec) 2.5 mg PO DAILY [facility] Last Admin: 02/16/18 11:00 Dose: Not Given Epoetin Michael (Procrit) 10,000 unit IV MWF [facility] Famotidine (Pepcid) 20 mg PO DAILY [facility] Last Admin: 02/16/18 10:37 Dose: 20 mg Heparin Sodium (Porcine) (Heparin) 5,000 units SC Q8 [facility] Levothyroxine Sodium (Synthroid) 125 mcg PO DAILY@0630 [facility] Tamsulosin HCl (Flomax) 0.4 mg PO DAILY [facility] Last Admin: 02/16/18 10:37 Dose: 0.4 mg - Labs Labs: 02/15/18 06:13 02/16/18 11:22 PT 15.5 SECONDS (9.7-12.2) H 02/16/18 05:15 INR 1.4 02/16/18 05:15 APTT 28 SECONDS (21-34) 02/16/18 05:15 Attending/Attestation - Attestation I have personally seen and examined this patient.: Yes I have fully participated in the care of the patient.: Yes I have reviewed all pertinent clinical information, including history, physical exam and plan: Yes Notes (Text): 02/16/18 20:17 Patient was seen and examined at 9:45 AM Exam, assessment and plan were gone over with resident Dr. Corona Fluid Restriction of 1.5 liters considering the Heart Failure and Hyponatremia. F/U 2D Echocardiogram F/U MRCP Elton Yo D.O.
[2018-02-16] MEDS ORDERED: Simethicone 80 mg Chewtab PO ONE (17:11)
--- NOTE | 2018-02-17 00:26 | CON ---
DATE: CARDIOLOGY CONSULTATION REASON FOR CONSULTATION: congestive heart failure as well as a normal EKG. HISTORY OF PRESENT ILLNESS: The patient is a 67 years old male who has a history of end-stage renal disease on hemodialysis for the past 4 years, history of hypertension, history of hypothyroidism who was recently diagnosed with calculous cholecystitis and underwent laparoscopic cholecystectomy 2 weeks ago and was discharged. Readmitted because of abdominal pain, constipation and vomiting, and was noted to have elevated liver enzymes. The patient denies any chest pain. The patient is known to have mild to moderate left ventricular systolic dysfunction. The most recent echo was done last year which revealed mild to moderate left ventricular systolic dysfunction with normal chamber size and mild mitral insufficiency and mild tricuspid insufficiency. SOCIAL HISTORY: The patient is a nonsmoker. REVIEW OF SYSTEMS: The patient denies any dizziness or syncope. The patient did report vomiting yesterday. He complains of constipation for the past two days. He denies any fever or chills. CURRENT MEDICATIONS: Coreg 6.25 mg once a day; Flomax 0.4 mg once a day, heparin 5000 units subcutaneously every 12 hours, Pepcid 20 mg p.o. once a day, PhosLo 1 tablet t.i.d., Synthroid 125 mcg once a day, Lasix 2.5 mg once a day, Procrit 10,000 units intravenously Friday, Friday, and Friday. PHYSICAL EXAMINATION: GENERAL: The patient is an elderly male who does not appear to be in acute distress. VITAL SIGNS: Blood pressure 142/83, heart rate 67, temperature 97.5, respirations 20. HEENT: Pale conjunctivae. CHEST: Clear. HEART: S1 and S2, regular. ABDOMEN: Bruising is noted from subcutaneous heparin injection. Soft. Normoactive bowel sounds. EXTREMITIES: No edema. LABORATORY DATA: Hemoglobin and hematocrit 10.7 and 31.6. White count and platelet count are within normal limits. Haptoglobin is 210.8, reticulocyte count is 4.4. SMA-7: Sodium 122, potassium 4.7, chloride 77, CO2 of 28, glucose 109, BUN is 55, creatinine 7.9. THS level is elevated 9.89. AST and ALT are 502 and 748 respectively. Alkaline phosphatase is 156. ProBNP is 67,500. Two sets of troponins are negative. Initial EKG revealed sinus rhythm at the rate of 66, consider anterolateral ischemic and T-wave changes, prolonged QT interval. The subsequent EKG revealed disappearance of those ischemic anterolateral T-wave inversion. Chest x-ray revealed borderline cardiomegaly, questionable right lower lobe infiltrate. Abdominal ultrasound revealed a stable limited abdominal ultrasound, status post prior cholecystectomy, normal common bile duct caliber, no prominent intrahepatic biliary dilatation. INR is 1.4. ASSESSMENT: 1. Mild to moderately depressed left ventricular systolic function. 2. Abnormal EKG with evidence of anterolateral ischemia which improved on subsequent EKG, myocardial infarction is ruled out. 3. Hypothyroidism, not optimally controlled. 4. Hypertension. 5. Status post laparoscopic cholecystectomy. 5. Mild coagulopathy, most likely related to the patient's liver congestion. 6. Hyponatremia. RECOMMENDATIONS: Discontinue subcutaneous heparin. Continue IV Procrit, continue Synthroid 125 mcg once a day. Resume Coreg and enalapril; however, hold for systolic blood pressure below 110. Obtain an echocardiogram. The patient is being considered for MRCP. Blu London MD
[2018-02-17] MEDS: Levothyroxine 125 MCG TAB PO SCH (05:30)
[2018-02-17] MEDS ORDERED: Levothyroxine 150 MCG TAB PO SCH (06:30)
[2018-02-17 07:42] LABS: BASO # 0.1 K/uL (0.0-0.2); BASO % 1.2 % (0.0-2.0); EOS # 0.4 K/uL (0.0-0.7); EOS % 7.2 % (0.0-4.0); HEMOGLOBIN 11.2 g/dL (12.0-18.0); LYMPH # 1.1 K/uL (1.0-4.3); LYMPH % 20.4 % (20.0-40.0); MEAN CELL VOLUME 89.5 fL (80.0-94.0); MEAN CORPUSCULAR HEMOGLOBIN 30.3 pg (27.0-31.0); MEAN CORPUSCULAR HGB CONC 33.9 g/dL (33.0-37.0); MEAN PLATELET VOLUME 8.7 fL (7.2-11.7); MONO # 0.6 K/uL (0.0-0.8); MONO % 10.5 % (0.0-10.0); NEUT # 3.3 K/uL (1.8-7.0); NEUT % 60.7 % (50.0-75.0); NRBC % 1.7 % (0.0-2.0); RBC 3.7 Mil/uL (4.40-5.90); RED CELL DISTRIBUTION WIDTH 15.9 % (11.5-14.5); WHITE BLOOD COUNT 5.5 K/uL (4.8-10.8)
[2018-02-17 07:50] LABS: ALB/GLOB RATIO 1.4 (1.0-2.1); ALBUMIN 3.7 g/dL (3.5-5.0); CALCIUM 8.4 mg/dl (8.6-10.4)
[2018-02-17 07:59] VITALS: RESP 20
--- NOTE | 2018-02-17 10:06 | CP.PCM.PN ---
<Rosario Bates - Last Filed: 02/17/18 13:34> Subjective - Date & Time of Evaluation Date of Evaluation: 02/17/18 Time of Evaluation: 10:14 - Subjective Subjective: Progress note for Dr. Yo Patient seen and examined Objective - Vital Signs/Intake and Output Vital Signs (last 24 hours): Temp Pulse Resp BP Pulse Ox 97.5 F L 70 20 144/80 100 02/17/18 07:05 02/17/18 07:40 02/17/18 07:05 02/17/18 07:05 02/17/18 07:05 Intake and Output: 02/17/18 02/17/18 06:59 18:59 Intake Total 420 Balance 420 - Medications Medications: Current Medications Calcium Acetate (Phoslo) 667 mg PO TID [facility] Last Admin: 02/16/18 22:36 Dose: 667 mg Carvedilol (Coreg) 6.25 mg PO BID [facility] Last Admin: 02/16/18 20:31 Dose: 6.25 mg Enalapril Maleate (Vasotec) 2.5 mg PO DAILY [facility] Last Admin: 02/16/18 11:00 Dose: Not Given Epoetin Michael (Procrit) 10,000 unit IV MWF [facility] Last Admin: 02/16/18 20:20 Dose: 10,000 unit Famotidine (Pepcid) 20 mg PO DAILY [facility] Last Admin: 02/16/18 10:37 Dose: 20 mg Heparin Sodium (Porcine) (Heparin) 5,000 units SC Q8 [facility] Last Admin: 02/17/18 05:30 Dose: 5,000 units Levothyroxine Sodium (Synthroid) 125 mcg PO DAILY@0630 [facility] Last Admin: 02/17/18 05:30 Dose: 125 mcg Tamsulosin HCl (Flomax) 0.4 mg PO DAILY [facility] Last Admin: 02/16/18 10:37 Dose: 0.4 mg - Labs Labs: 02/17/18 07:25 02/17/18 07:25 PT 15.5 SECONDS (9.7-12.2) H 02/16/18 05:15 INR 1.4 02/16/18 05:15 APTT 28 SECONDS (21-34) 02/16/18 05:15 - Head Exam Head Exam: ATRAUMATIC, NORMAL INSPECTION, NORMOCEPHALIC - Eye Exam Eye Exam: EOMI, Normal appearance - ENT Exam ENT Exam: Mucous Membranes Moist, Normal Exam - Neck Exam Neck Exam: Full ROM. absent: Tenderness - Respiratory Exam Respiratory Exam: Clear to Ausculation Bilateral, NORMAL BREATHING PATTERN - Cardiovascular Exam Cardiovascular Exam: REGULAR RHYTHM, +S1, +S2 - GI/Abdominal Exam GI & Abdominal Exam: Distended, Soft. absent: Firm, Guarding, Rigid, Tenderness Additional comments: scars from laparoscopic cholecystectomy 01/27/18 No erythema, drainage - Extremities Exam Extremities Exam: Full ROM. absent: Pedal Edema - Back Exam Back Exam: Full ROM - Neurological Exam Neurological Exam: Alert, Awake, CN II-XII Intact, Oriented x3 - Psychiatric Exam Psychiatric exam: Normal Affect, Normal Mood - Skin Skin Exam: Dry, Intact, Normal Color, Warm Assessment and Plan - Assessment and Plan (Free Text) Assessment: Transaminitis * GI consult: Dr. Perez for transamnitis, in patient with CHF and ESRD * Etiology: possibly related to medications, chf exacerbation affecting the liver, patient is former history of alcohol abuse (last drink 4 years ago); acute phase reactant; likely 2/2 CHF * Pending MRCP * Patient denies herbals; OTC medications, denies alcohol, with prior history of cholelithiasis. * We have held medications metabolized by liver including statin, benadryl, benzodiazepines, tylenol, antibiotics, toradol, anti-emetics----Please check hepatic impairment of medications prior to prescribing medications. Nursing communication has been ordered Imaging: * Abdominal US (02/15/18): stable limited abdomen ultraounds status post prior cholecystectomy. Normal CBD caliber. No prominent intrahepatic biliary dilatation. partial imaging of the pancreas and marked right renal atrophy again evident * CT abdomen/pelvis (02/12/18): cholecystectomy. mild stranding in the gallbladder fossa most likely post surgical. Nonspecific trace ascites. No fluid collection. No bowel obstruction or acute colitis. Mildly thick walled probably secondary to nondistension. Bilateral pleural effusions with bibasilar atelectasis. Workup: * Tylenol level: negative * Hepatitis panel - negative * GGT: 223, elevated * CPK is downtrending History of cholelithiasis Status post cholecystectomy * Surgery (Dr. Moore) resident came to evaluate the patient, do not believe the elevated LFTS are related to the surgery * Abdominal US (02/15/18): stable limited abdomen ultraounds status post prior cholecystectomy. Normal CBD caliber. No prominent intrahepatic biliary dilatation. partial imaging of the pancreas and marked right renal atrophy again evident * CT abdomen/pelvis (02/12/18): cholecystectomy. mild stranding in the gallbladder fossa most likely post surgical. Nonspecific trace ascites. No fluid collection. No bowel obstruction or acute colitis. Mildly thick walled probably secondary to nondistension. Bilateral pleural effusions with bibasilar atelectasis. * Bilirubin not high; GGT: 223, elevated Hyponatremia * Nephrology Dr. Banks for ESRD, and hyponatremia * Ordered serum osmolarity, urine osm, urine sodium, urine chloride * Scheduled for ESRD ([facility]) as outpatient * Consent for dialysis in the chart * Fluid restriction 1.5 L daily * Diet 2 gm Na * No IV fluids. given consideration for CHF with EF <35% * Start low dose Lasix 20mg PO daily Possibly due to Heart Failure * upgraded to telemetry * cardiac enzymes with YULI Q6H * Fluid restriction 1.5 L daily * daily weight * strict intake/output * Echo 06/2017: mild-moderate LV systolic heart. EF 36% * stress test (2013 No significant/stress, normal perfusion) * Continue patient's coreg, enalapril Per Dr. London: discontinue subcutaneous heparin, continue IV Procrit, Synthroid 125 mcg PO QD, f/u with echo * Pending repeat ECHO ESRD M/W/F * Dialysis consent obtained in chart * Nephrology Consult: Dr. Banks's Group consulted History of Hypothyroidism * C/w home medication Levothyroxine - will need repeat TSH, free T4 in 2-3 weeks as medication was restarted 3 weeks ago (the week of 01/22/2018) * TSH 9.89 History of Hypertension * Restart patient's coreg and enalapril History of Hyperlipidemia * Stopped statin secondary to LFTs Anemia of Chronic disease * Reticulocyte count 4.4, haptoglobin - 210.8 - likely acute phase reactants History of heavy alcohol use * patient quit 4-5 years ago-> heavy use, does not smell like alcohol on exam * check blood alcohol level * Abdominal US (02/15/18): stable limited abdomen ultraounds status post prior cholecystectomy. Normal CBD caliber. No prominent intrahepatic biliary dilatation. partial imaging of the pancreas and marked right renal atrophy again evident Urinary retention, history * patient has prior history of urinary retention in last hospitalization * c/w flomax * Ordered for renal US/bladder US Reflux symptoms * Pepcid 20 mg POQD 12. Prophylactic measure * SCDs bilateral * Pepcid 20 mg POQD * Heparin 5,000 u SC Q12H, held * PT/OT eval discussed with Dr. Elton Bates, DO PGY1 <Elton Yo J - Last Filed: 02/17/18 19:06> Objective - Vital Signs/Intake and Output Vital Signs (last 24 hours): Temp Pulse Resp BP Pulse Ox 97.5 F L 67 20 136/84 100 02/17/18 16:00 02/17/18 16:00 02/17/18 16:00 02/17/18 16:00 02/17/18 16:00 Intake and Output: 02/17/18 02/18/18 18:59 06:59 Intake Total 250 Balance 250 - Medications Medications: Current Medications Calcium Acetate (Phoslo) 667 mg PO TID [facility] Last Admin: 02/17/18 17:06 Dose: 667 mg Carvedilol (Coreg) 6.25 mg PO BID [facility] Last Admin: 02/17/18 17:06 Dose: 6.25 mg Enalapril Maleate (Vasotec) 2.5 mg PO DAILY [facility] Last Admin: 02/17/18 10:16 Dose: 2.5 mg Famotidine (Pepcid) 20 mg PO DAILY [facility] Last Admin: 02/17/18 10:16 Dose: 20 mg Heparin Sodium (Porcine) (Heparin) 5,000 units SC Q8 [facility] Last Admin: 02/17/18 13:12 Dose: 5,000 units Levothyroxine Sodium (Synthroid) 125 mcg PO DAILY@0630 [facility] Last Admin: 02/17/18 05:30 Dose: 125 mcg Tamsulosin HCl (Flomax) 0.4 mg PO DAILY [facility] Last Admin: 02/17/18 10:17 Dose: 0.4 mg - Labs Labs: 02/17/18 07:25 02/17/18 07:25 PT 15.5 SECONDS (9.7-12.2) H 02/16/18 05:15 INR 1.4 02/16/18 05:15 APTT 28 SECONDS (21-34) 02/16/18 05:15 Attending/Attestation - Attestation I have personally seen and examined this patient.: Yes I have fully participated in the care of the patient.: Yes Notes (Text): 02/17/18 19:03 Patient was seen and examined at 8:30 AM Exam, assessment and plan were gone over with resident Dr. Bates. Also on ROS: SOB is much improved Also on Exam: NO JVD however +Hepatojugular Reflux Holosystolic murmur in all heart auscultatory hightower. Please note that under Hyponatremia above patient is NOT on Lasix. His Na improved on the Fluid Restriction F/U MRCP F/U 2D Echocardiogram Elton Yo D.O.
--- NOTE | 2018-02-17 11:00 | US ---
Renal ultrasound History: Hematuria. Urinary retention. Comparison: None available. Technique: Real-time sonography was performed through the kidneys. Findings: Abdominal ascites noted. Right pleural effusion noted. Right kidney: Diminutive. 6.6 x 3.7 x 4.2 centimeters. Increased echogenicity of the renal parenchymal cortex suggestive for medical renal disease. Midpole hypoechoic cysts measuring 2.7 x 2.2 x 2.4 centimeters and 1.2 x 0.9 x 1.0 centimeters. No calculi or hydronephrosis. Left kidney: Diminutive. 8.5 x 4.3 x 4.9 centimeters. Increased echogenicity of the hepatic parenchymal cortex suggestive for medical renal disease. Mid and lower pole hypoechoic cysts measuring 2.4 x 2.5 x 2.4 centimeters and 1.9 x 2.0 x 2.2 centimeters. No calculi or hydronephrosis. Visualized portions of the aorta appear grossly preserved. Limited visualization of the proximal aorta. Heterogeneous and prominent prostate measuring up to 4.2 centimeters. Limited visualization of the urinary bladder. Bilateral ureteral jets were not well visualized. No gross postvoid residual in the urinary bladder. Impression: Diminutive kidneys with diffuse increased echogenicity suggestive for medical renal disease. Clinical correlation. Bilateral renal cysts. Limited visualization of the urinary bladder. Clinical correlation. Heterogeneous and prominent prostate. Right pleural effusion. Abdominal ascites.
--- NOTE | 2018-02-17 14:05 | CP.PCM.PN ---
Subjective - Date & Time of Evaluation Date of Evaluation: 02/17/18 Time of Evaluation: 14:03 - Subjective Subjective: CC: LFTs Patient is at [facility] Discussed with RN- no clinical changes Objective - Vital Signs/Intake and Output Vital Signs (last 24 hours): Temp Pulse Resp BP Pulse Ox 97.5 F L 70 20 144/80 100 02/17/18 07:05 02/17/18 07:40 02/17/18 07:05 02/17/18 10:16 02/17/18 07:05 Intake and Output: 02/17/18 02/17/18 06:59 18:59 Intake Total 420 Balance 420 - Medications Medications: Current Medications Calcium Acetate (Phoslo) 667 mg PO TID [facility] Last Admin: 02/17/18 13:12 Dose: 667 mg Carvedilol (Coreg) 6.25 mg PO BID [facility] Last Admin: 02/17/18 10:16 Dose: 6.25 mg Enalapril Maleate (Vasotec) 2.5 mg PO DAILY [facility] Last Admin: 02/17/18 10:16 Dose: 2.5 mg Famotidine (Pepcid) 20 mg PO DAILY [facility] Last Admin: 02/17/18 10:16 Dose: 20 mg Heparin Sodium (Porcine) (Heparin) 5,000 units SC Q8 [facility] Last Admin: 02/17/18 13:12 Dose: 5,000 units Levothyroxine Sodium (Synthroid) 125 mcg PO DAILY@0630 [facility] Last Admin: 02/17/18 05:30 Dose: 125 mcg Tamsulosin HCl (Flomax) 0.4 mg PO DAILY [facility] Last Admin: 02/17/18 10:17 Dose: 0.4 mg - Labs Labs: 02/17/18 07:25 02/17/18 07:25 PT 15.5 SECONDS (9.7-12.2) H 02/16/18 05:15 INR 1.4 02/16/18 05:15 APTT 28 SECONDS (21-34) 02/16/18 05:15 Assessment and Plan (1) Abdominal pain Status: Acute (2) ESRD (end stage renal disease) on dialysis Status: Acute (3) Abnormal liver enzymes Assessment & Plan: Evaluating via MRCP and Echocardiogram Suspect CHF and congestive hepatopathy Status: Acute
--- NOTE | 2018-02-17 14:08 | CP.PCM.PN ---
Subjective - Date & Time of Evaluation Date of Evaluation: 02/17/18 Time of Evaluation: 14:06 - Subjective Subjective: seen and examined in am getting echo still w/ abd pain s/p hd yesterday for mrcp today Objective - Vital Signs/Intake and Output Vital Signs (last 24 hours): Temp Pulse Resp BP Pulse Ox 97.5 F L 70 20 144/80 100 02/17/18 07:05 02/17/18 07:40 02/17/18 07:05 02/17/18 10:16 02/17/18 07:05 Intake and Output: 02/17/18 02/17/18 06:59 18:59 Intake Total 420 Balance 420 - Medications Medications: Current Medications Calcium Acetate (Phoslo) 667 mg PO TID [facility] Last Admin: 02/17/18 13:12 Dose: 667 mg Carvedilol (Coreg) 6.25 mg PO BID [facility] Last Admin: 02/17/18 10:16 Dose: 6.25 mg Enalapril Maleate (Vasotec) 2.5 mg PO DAILY [facility] Last Admin: 02/17/18 10:16 Dose: 2.5 mg Famotidine (Pepcid) 20 mg PO DAILY [facility] Last Admin: 02/17/18 10:16 Dose: 20 mg Heparin Sodium (Porcine) (Heparin) 5,000 units SC Q8 [facility] Last Admin: 02/17/18 13:12 Dose: 5,000 units Levothyroxine Sodium (Synthroid) 125 mcg PO DAILY@0630 [facility] Last Admin: 02/17/18 05:30 Dose: 125 mcg Tamsulosin HCl (Flomax) 0.4 mg PO DAILY [facility] Last Admin: 02/17/18 10:17 Dose: 0.4 mg - Labs Labs: 02/17/18 07:25 02/17/18 07:25 PT 15.5 SECONDS (9.7-12.2) H 02/16/18 05:15 INR 1.4 02/16/18 05:15 APTT 28 SECONDS (21-34) 02/16/18 05:15 - Constitutional Appears: No Acute Distress, Chronically Ill - Head Exam Head Exam: NORMAL INSPECTION, NORMOCEPHALIC - Eye Exam Eye Exam: Normal appearance Pupil Exam: PERRL - ENT Exam ENT Exam: Mucous Membranes Moist, Normal Exam - Neck Exam Neck Exam: Normal Inspection - Respiratory Exam Respiratory Exam: Decreased Breath Sounds, NORMAL BREATHING PATTERN - Cardiovascular Exam Cardiovascular Exam: REGULAR RHYTHM, RRR - GI/Abdominal Exam GI & Abdominal Exam: Distended, Soft, Hypoactive Bowel Sounds - Extremities Exam Extremities Exam: Normal Inspection Additional comments: lue avf - Neurological Exam Neurological Exam: Alert, Awake, Oriented x3 - Psychiatric Exam Psychiatric exam: Normal Affect, Normal Mood - Skin Skin Exam: Dry, Intact Assessment and Plan (1) Abdominal pain Status: Acute (2) Abnormal liver enzymes Status: Acute (3) ESRD (end stage renal disease) on dialysis Status: Acute - Assessment and Plan (Free Text) Assessment: maintain hd, aggressive uf as tolerated fluid restriction f/u echo
--- NOTE | 2018-02-17 17:01 | PN ---
DATE: SUBJECTIVE: The patient's abdominal pain has improved. He had a small bowel movement. He denies any substernal chest pain. He is kept n.p.o. for MRCP. PHYSICAL EXAMINATION: VITAL SIGNS: Blood pressure 144/80, heart rate 70, temperature 97.5, respirations 20. HEENT: Normocephalic. CHEST: Clear. HEART: S1 and S2, regular. ABDOMEN: Some ecchymosis from the previous subcutaneous heparin injection. EXTREMITIES: No edema. LABORATORY DATA: Hemoglobin and hematocrit 11.2 and 33.1. White count and platelet count are within normal limits. SMA-7: Sodium 127, potassium 4.4, chloride 85, CO2 of 29, glucose 84, BUN 28, creatinine 5.4. Bladder ultrasound images' visualization: Heterogeneous and prominent prostate. ASSESSMENT AND PLAN: 1. Mild to moderately depressed left ventricular systolic function. 2. Abnormal EKG with evidence of anterolateral ischemia on initial EKG. 3. Hypothyroidism. 4. Hypertension. 5. Status post cholecystectomy. 6. Mild coagulopathy. 7. Cholelithiasis. 8. End-stage renal disease, on hemodialysis. RECOMMENDATIONS: Continue Coreg 6.25 mg once a day. Discontinue subcutaneous heparin. Continue Synthroid 125 mcg once a day, enalapril 2.5 mg once a day. The patient is scheduled for MRCP today. Blu London MD
[2018-02-18] MEDS: Levothyroxine 125 MCG TAB PO SCH (05:51)
[2018-02-18 07:34] LABS: BASO # 0.1 K/uL (0.0-0.2); BASO % 1.4 % (0.0-2.0); EOS # 0.5 K/uL (0.0-0.7); EOS % 8.8 % (0.0-4.0); HEMOGLOBIN 11.4 g/dL (12.0-18.0); LYMPH # 1.6 K/uL (1.0-4.3); LYMPH % 26.7 % (20.0-40.0); MEAN CELL VOLUME 90.4 fL (80.0-94.0); MEAN CORPUSCULAR HEMOGLOBIN 30.5 pg (27.0-31.0); MEAN CORPUSCULAR HGB CONC 33.8 g/dL (33.0-37.0); MEAN PLATELET VOLUME 8.7 fL (7.2-11.7); MONO # 0.7 K/uL (0.0-0.8); MONO % 11.3 % (0.0-10.0); NEUT # 3.1 K/uL (1.8-7.0); NEUT % 51.8 % (50.0-75.0); NRBC % 0.6 % (0.0-2.0); RBC 3.74 Mil/uL (4.40-5.90); RED CELL DISTRIBUTION WIDTH 16.8 % (11.5-14.5)
[2018-02-18 07:41] LABS: ALB/GLOB RATIO 1.3 (1.0-2.1); ALBUMIN 3.6 g/dL (3.5-5.0); CALCIUM 8.7 mg/dl (8.6-10.4)
--- NOTE | 2018-02-18 08:21 | CP.PCM.PN ---
<Makayla Corona - Last Filed: 02/18/18 15:53> Subjective - Date & Time of Evaluation Date of Evaluation: 02/18/18 Time of Evaluation: 08:00 - Subjective Subjective: Medicine Note for Hospitalist Service - Dr. Elton Yo Patient was seen and examined at bedside. Patient reports mild abdominal pain. Denied fever, chills, headache, chest pain, SOB, n/v/d/c, or urinary symptoms. Objective - Vital Signs/Intake and Output Vital Signs (last 24 hours): Temp Pulse Resp BP Pulse Ox 97.3 F L 62 20 131/74 100 02/18/18 07:00 02/18/18 07:10 02/18/18 07:00 02/18/18 07:00 02/18/18 07:00 Intake and Output: 02/18/18 02/18/18 06:59 18:59 Intake Total 500 Balance 500 - Medications Medications: Current Medications Calcium Acetate (Phoslo) 667 mg PO TID [facility] Last Admin: 02/17/18 17:06 Dose: 667 mg Carvedilol (Coreg) 6.25 mg PO BID [facility] Last Admin: 02/17/18 17:06 Dose: 6.25 mg Enalapril Maleate (Vasotec) 2.5 mg PO DAILY [facility] Last Admin: 02/17/18 10:16 Dose: 2.5 mg Famotidine (Pepcid) 20 mg PO DAILY [facility] Last Admin: 02/17/18 10:16 Dose: 20 mg Heparin Sodium (Porcine) (Heparin) 5,000 units SC Q8 [facility] Last Admin: 02/18/18 05:51 Dose: 5,000 units Levothyroxine Sodium (Synthroid) 125 mcg PO DAILY@0630 [facility] Last Admin: 02/18/18 05:51 Dose: 125 mcg Tamsulosin HCl (Flomax) 0.4 mg PO DAILY [facility] Last Admin: 02/17/18 10:17 Dose: 0.4 mg - Labs Labs: 02/18/18 07:12 02/18/18 07:12 PT 15.5 SECONDS (9.7-12.2) H 02/16/18 05:15 INR 1.4 02/16/18 05:15 APTT 28 SECONDS (21-34) 02/16/18 05:15 - Additional Findings Additional findings: - Head Exam Head Exam: ATRAUMATIC, NORMAL INSPECTION, NORMOCEPHALIC - Eye Exam Eye Exam: EOMI, Normal appearance - ENT Exam ENT Exam: Mucous Membranes Moist, Normal Exam - Neck Exam Neck Exam: Full ROM. absent: Tenderness - Respiratory Exam Respiratory Exam: Clear to Ausculation Bilateral, NORMAL BREATHING PATTERN - Cardiovascular Exam Cardiovascular Exam: REGULAR RHYTHM, +S1, +S2 - GI/Abdominal Exam GI & Abdominal Exam: Distended, Soft. absent: Firm, Guarding, Rigid, Tenderness Additional comments: scars from laparoscopic cholecystectomy 01/27/18 No erythema, drainage - Extremities Exam Extremities Exam: Full ROM, LUE AVF. absent: Pedal Edema - Back Exam Back Exam: Full ROM - Neurological Exam Neurological Exam: Alert, Awake, CN II-XII Intact, Oriented x3 - Psychiatric Exam Psychiatric exam: Normal Affect, Normal Mood - Skin Skin Exam: Dry, Intact, Normal Color, Warm Assessment and Plan - Assessment and Plan (Free Text) Plan: Transaminitis -- downtrending * GI consult: Dr. Perez for transamnitis, in patient with CHF and ESRD * Etiology: possibly related to medications, chf exacerbation affecting the liver, patient is former history of alcohol abuse (last drink 4 years ago); acute phase reactant; likely 2/2 CHF/ congestive hepatopathy * Pending MRCP: No evidence of biliary obstruction. Status post cholecystectomy. Atrophic kidneys with small cysts. Mild ascites. Bilateral pleural effusion with lower lobe subsegmental atelectasis. * Dr. Perez reviewed with radiologist : "Normal CBD. Liver with decreased density, ?Iron overload. Large mesenteric fat appearance"; * Suspect passive hepatic congestion * Patient denies herbals; OTC medications, denies alcohol, with prior history of cholelithiasis. * We have held medications metabolized by liver including statin, benadryl, benzodiazepines, tylenol, antibiotics, toradol, anti-emetics----Please check hepatic impairment of medications prior to prescribing medications. Nursing communication has been ordered Imaging: * Abdominal US (02/15/18): stable limited abdomen ultraounds status post prior cholecystectomy. Normal CBD caliber. No prominent intrahepatic biliary dilatation. partial imaging of the pancreas and marked right renal atrophy again evident * CT abdomen/pelvis (02/12/18): cholecystectomy. mild stranding in the gallbladder fossa most likely post surgical. Nonspecific trace ascites. No fluid collection. No bowel obstruction or acute colitis. Mildly thick walled probably secondary to nondistension. Bilateral pleural effusions with bibasilar atelectasis. Workup: * Tylenol level: negative * Hepatitis panel - negative * GGT: 223, elevated * CPK is downtrending Hx Systolic Heart Failure with LVEF 36% * Cardiology consulted - Dr. London * Fluid restriction 1.5 L daily * daily weight * strict intake/output * Echo 06/2017: mild-moderate LV systolic heart. EF 36% * stress test (2013 No significant/stress, normal perfusion) * Continue patient's coreg, enalapril * Repeat ECHO: LVEF 25-30%, systolic function severely impaired. Moderate Pulm HTN and Tricuspid regurg Hyponatremia * Nephrology Dr. Banks for ESRD, and hyponatremia * Ordered serum osmolarity, urine osm, urine sodium, urine chloride * Fluid restriction 1.5 L daily * Diet 2 gm Na * No IV fluids. given consideration for CHF with EF <35% ESRD on HD MWF * Nephrology Consult: Dr. [facility] consulted * Procrit 6,000 IV MWF, Phoslo * LUE AVF History of Hypothyroidism * C/w home medication Levothyroxine 125mcg - will need repeat TSH, free T4 in 2- 3 weeks as medication was restarted 3 weeks ago (the week of 01/22/2018) * TSH 9.89 History of Hypertension * Restart patient's coreg and enalapril History of Hyperlipidemia * Stopped statin secondary to LFTs Anemia of Chronic disease * Reticulocyte count 4.4, haptoglobin - 210.8 - likely acute phase reactants History of cholelithiasis Status post cholecystectomy * Surgery (Dr. Moore) resident came to evaluate the patient, do not believe the elevated LFTS are related to the surgery * Abdominal US (02/15/18): stable limited abdomen ultraounds status post prior cholecystectomy. Normal CBD caliber. No prominent intrahepatic biliary dilatation. partial imaging of the pancreas and marked right renal atrophy again evident * CT abdomen/pelvis (02/12/18): cholecystectomy. mild stranding in the gallbladder fossa most likely post surgical. Nonspecific trace ascites. No fluid collection. No bowel obstruction or acute colitis. Mildly thick walled probably secondary to nondistension. Bilateral pleural effusions with bibasilar atelectasis. * Bilirubin not high; GGT: 223, elevated History of heavy alcohol use * patient quit 4-5 years ago-> heavy use, does not smell like alcohol on exam * check blood alcohol level * Abdominal US (02/15/18): stable limited abdomen ultraounds status post prior cholecystectomy. Normal CBD caliber. No prominent intrahepatic biliary dilatation. partial imaging of the pancreas and marked right renal atrophy again evident History of Urinary retention * patient has prior history of urinary retention in last hospitalization * Renal US/bladder US: Diminutive kidneys with diffuse increased echogenicity suggestive for medical renal disease. Clinical correlation. Bilateral renal cysts. Limited visualization of the urinary bladder. Clinical correlation. Heterogeneous and prominent prostate. Right pleural effusion. Abdominal ascites. * c/w flomax Prophylactic measure * SCDs bilateral * Pepcid 20 mg POQD * Heparin stopped at request of Cardio Disposition: Anticipate discharge tomorrow DW Dr. Elton Yo, Makayla Corona DO, PGY-1 <Elton Yo - Last Filed: 02/18/18 17:56> Objective - Vital Signs/Intake and Output Vital Signs (last 24 hours): Temp Pulse Resp BP Pulse Ox 97.9 F 64 20 124/66 100 02/18/18 15:48 02/18/18 15:48 02/18/18 15:48 02/18/18 15:48 02/18/18 15:48 Intake and Output: 02/18/18 02/18/18 06:59 18:59 Intake Total 500 300 Balance 500 300 - Medications Medications: Current Medications Calcium Acetate (Phoslo) 667 mg PO TID [facility] Last Admin: 02/18/18 17:20 Dose: 667 mg Carvedilol (Coreg) 6.25 mg PO BID [facility] Last Admin: 02/18/18 17:20 Dose: 6.25 mg Enalapril Maleate (Vasotec) 2.5 mg PO DAILY [facility] Last Admin: 02/18/18 09:06 Dose: Not Given Famotidine (Pepcid) 20 mg PO DAILY [facility] Last Admin: 02/18/18 09:05 Dose: 20 mg Levothyroxine Sodium (Synthroid) 125 mcg PO DAILY@0630 [facility] Last Admin: 02/18/18 05:51 Dose: 125 mcg Tamsulosin HCl (Flomax) 0.4 mg PO DAILY [facility] Last Admin: 02/18/18 09:05 Dose: 0.4 mg - Labs Labs: 02/18/18 07:12 02/18/18 07:12 PT 15.5 SECONDS (9.7-12.2) H 02/16/18 05:15 INR 1.4 02/16/18 05:15 APTT 28 SECONDS (21-34) 02/16/18 05:15 Attending/Attestation - Attestation I have personally seen and examined this patient.: Yes I have fully participated in the care of the patient.: Yes I have reviewed all pertinent clinical information, including history, physical exam and plan: Yes Notes (Text): 02/18/18 17:54 Patient was seen and examined in HD unit at 1:30 PM Exam, assessment and plan were gone over with the resident. NO JVD NO Hepatogular reflux noted CTA B/L NO R/R/W NO edema Will discharge patient in morning 02/19/18 as long as the LFTs continue to decline. Elton Yo D.O.
--- NOTE | 2018-02-18 08:22 | CARD ---
APPROVED REPORT EXAM: Two-dimensional and M-mode echocardiogram with Doppler and color Doppler. Other Information Quality : Good[employer] : INDICATION Dyspnea Pleural Effusion Congestive Heart Failure ESRD,DIALYSIS RISK FACTORS Hypertension Hyperlipidemia 2D DIMENSIONS IVSd1.1 (0.7-1.1cm)Aortic Root (2D)3.3 (2.0-3.7cm) LVDd5.8 (3.9-5.9cm)PWd0.9 (0.7-1.1cm) LVDs4.8 (2.5-4.0cm)FS (%) 15.9 % LVEF (%)33.1 (>50%) M-Mode DIMENSIONS RVDd2.44 (2.1-3.2cm)Left Atrium (MM)2.68 (2.5-4.0cm) IVSd1.01 (0.7-1.1cm)Aortic Root3.63 (2.2-3.7cm) LVDd5.17 (4.0-5.6cm)Aortic Cusp Exc.1.95 (1.5-2.0cm) PWd0.98 (0.7-1.1cm)FS (%) 19 % LVDs4.16 (2.0-3.8cm)LVEF (%)30 (>50%) Aortic Valve AI P 1/2 [id number] Mitral Valve MV E Vshpleub02.8cm/sMV A Tdvmzdzk59.8cm/sE/A ratio2.7 TDI E/Lateral E'0.0E/Medial E'0.0 Tricuspid Valve TR Peak [id number]/sTR Peak [id number] LEFT VENTRICLE The Left Ventricle is borderline dilated. There is normal left ventricular wall thickness. Left ventricle systolic function is severely impaired. The Ejection Fraction is 25-30%. There is global hypokinesis of the left ventricle. The left ventricular diastolic function is normal. No left ventricle thrombus noted on this study. RIGHT VENTRICLE The right ventricle is normal size. Systolic function is mildly reduced. ATRIA The left atrium size is normal. The right atrium size is normal. AORTIC VALVE The aortic valve is mildlymildly thickened. The aortic valve is trileaflet. There is mild aortic regurgitation. There is no aortic valvular stenosis. There is no aortic valvular vegetation. MITRAL VALVE Mitral annular calcification is mild. There is no evidence of mitral valve prolapse. There is no mitral valve stenosis. Mitral regurgitation is mild TRICUSPID VALVE The tricuspid valve is normal in structure. There is moderate tricuspid regurgitation. Right ventricular systolic pressure is estimated at 50-60 mmHg. There is moderate pulmonary hypertension. There is no tricuspid valve prolapse or vegetation. There is no tricuspid valve stenosis. PULMONIC VALVE The pulmonary valve is normal in structure. There is mild pulmonic valvular regurgitation. There is no pulmonic valvular stenosis. GREAT VESSELS The aortic root is normal in size. The IVC is normal in size and collapses >50% with inspiration. PERICARDIAL EFFUSION There is no pericardial effusion. There is small pleural effusion. <Conclusion> The Left Ventricle is borderline dilated. Left ventricle systolic function is severely impaired. The Ejection Fraction is 25-30%. There is global hypokinesis of the left ventricle. The left ventricular diastolic function is normal. The right ventricle is normal size. Systolic function is mildly reduced. The left and right atrium size is normal. There is mild aortic regurgitation. Mitral regurgitation is mild There is moderate tricuspid regurgitation. There is moderate pulmonary hypertension. There is mild pulmonic valvular regurgitation.
[2018-02-18] MEDS ORDERED: Epoetin Alfa Dialysis 3000 UNIT/ML Inj IV SCH (09:00)
--- NOTE | 2018-02-18 09:59 | CP.PCM.PN ---
Subjective - Date & Time of Evaluation Date of Evaluation: 02/18/18 Time of Evaluation: 09:56 - Subjective Subjective: GI Service follow up for LFTs Films reviewed with radiologist: sono- liver does not appear cirrhotic. Minimal ascites, not amenable to paracentesis MRCP- Normal CBD. Liver with decreased density, ?Iron overload. Large mesenteric fat appearance Echo- LVEF 25-30%. Moderate Pulm HTN and Tricuspid regurg Seen in dialysis. Mild abdominal discomfort. Normal BMs. +Orthopnea Objective - Vital Signs/Intake and Output Vital Signs (last 24 hours): Temp Pulse Resp BP Pulse Ox 97.3 F L 62 20 131/74 100 02/18/18 07:00 02/18/18 07:10 02/18/18 07:00 02/18/18 09:06 02/18/18 07:00 Intake and Output: 02/18/18 02/18/18 06:59 18:59 Intake Total 500 Balance 500 - Medications Medications: Current Medications Calcium Acetate (Phoslo) 667 mg PO TID [facility] Last Admin: 02/18/18 09:04 Dose: 667 mg Carvedilol (Coreg) 6.25 mg PO BID [facility] Last Admin: 02/18/18 09:52 Dose: Not Given Enalapril Maleate (Vasotec) 2.5 mg PO DAILY [facility] Last Admin: 02/18/18 09:06 Dose: Not Given Famotidine (Pepcid) 20 mg PO DAILY [facility] Last Admin: 02/18/18 09:05 Dose: 20 mg Levothyroxine Sodium (Synthroid) 125 mcg PO DAILY@0630 [facility] Last Admin: 02/18/18 05:51 Dose: 125 mcg Tamsulosin HCl (Flomax) 0.4 mg PO DAILY [facility] Last Admin: 02/18/18 09:05 Dose: 0.4 mg - Labs Labs: 02/18/18 07:12 02/18/18 07:12 PT 15.5 SECONDS (9.7-12.2) H 02/16/18 05:15 INR 1.4 02/16/18 05:15 APTT 28 SECONDS (21-34) 02/16/18 05:15 - Constitutional Appears: No Acute Distress - Head Exam Head Exam: NORMOCEPHALIC - Eye Exam Eye Exam: absent: Scleral icterus - Neck Exam Neck Exam: Normal Inspection - Respiratory Exam Respiratory Exam: NORMAL BREATHING PATTERN - Cardiovascular Exam Cardiovascular Exam: REGULAR RHYTHM - GI/Abdominal Exam GI & Abdominal Exam: Soft. absent: Distended, Tenderness, Mass - Extremities Exam Extremities Exam: Normal Inspection Assessment and Plan (1) Abdominal pain Assessment & Plan: Resolving S/P Cholecystectomy, mild postop pain Status: Acute (2) ESRD (end stage renal disease) on dialysis Assessment & Plan: Dialysis Status: Acute (3) Abnormal liver enzymes Assessment & Plan: Suspect passive hepatic congestion. See above for MRCP, Sono, Echo. Doubt Hemochromatosis would present in this manner. Iron Sat only 25%. Ascites is quite small and not amenable to paracentesis Rec: check additional labwork as ordered. Management of underlying CHF per medical team Status: Acute
--- NOTE | 2018-02-18 11:56 | CP.PCM.PN ---
Subjective - Date & Time of Evaluation Date of Evaluation: 02/18/18 Time of Evaluation: 11:54 - Subjective Subjective: seen on hd improved breathing, laying flat in bed denies any abd pain/n/v/d/dizziness/cp/sob/rash/f/c/cough echo noted EF 25% s/p mrcp Objective - Vital Signs/Intake and Output Vital Signs (last 24 hours): Temp Pulse Resp BP Pulse Ox 97.3 F L 64 20 140/72 95 02/18/18 09:35 02/18/18 09:35 02/18/18 09:35 02/18/18 10:35 02/18/18 09:35 Intake and Output: 02/18/18 02/18/18 06:59 18:59 Intake Total 500 Balance 500 - Medications Medications: Current Medications Calcium Acetate (Phoslo) 667 mg PO TID [facility] Last Admin: 02/18/18 09:04 Dose: 667 mg Carvedilol (Coreg) 6.25 mg PO BID [facility] Last Admin: 02/18/18 09:52 Dose: Not Given Enalapril Maleate (Vasotec) 2.5 mg PO DAILY [facility] Last Admin: 02/18/18 09:06 Dose: Not Given Famotidine (Pepcid) 20 mg PO DAILY [facility] Last Admin: 02/18/18 09:05 Dose: 20 mg Levothyroxine Sodium (Synthroid) 125 mcg PO DAILY@0630 [facility] Last Admin: 02/18/18 05:51 Dose: 125 mcg Tamsulosin HCl (Flomax) 0.4 mg PO DAILY [facility] Last Admin: 02/18/18 09:05 Dose: 0.4 mg - Labs Labs: 02/18/18 07:12 02/18/18 07:12 PT 15.5 SECONDS (9.7-12.2) H 02/16/18 05:15 INR 1.4 02/16/18 05:15 APTT 28 SECONDS (21-34) 02/16/18 05:15 - Constitutional Appears: No Acute Distress, Chronically Ill - Head Exam Head Exam: NORMAL INSPECTION, NORMOCEPHALIC - Eye Exam Eye Exam: Normal appearance, PERRL - ENT Exam ENT Exam: Mucous Membranes Moist, Normal Exam - Neck Exam Neck Exam: Full ROM, Normal Inspection - Respiratory Exam Respiratory Exam: Clear to Ausculation Bilateral, NORMAL BREATHING PATTERN - Cardiovascular Exam Cardiovascular Exam: REGULAR RHYTHM, RRR - GI/Abdominal Exam GI & Abdominal Exam: Distended, Soft, Hypoactive Bowel Sounds - Extremities Exam Extremities Exam: Full ROM, Normal Inspection - Neurological Exam Neurological Exam: Alert, Awake, Oriented x3 - Psychiatric Exam Psychiatric exam: Normal Affect, Normal Mood - Skin Skin Exam: Intact, Normal Color Assessment and Plan (1) Abdominal pain Status: Acute (2) Abnormal liver enzymes Status: Acute (3) ESRD (end stage renal disease) on dialysis Status: Acute - Assessment and Plan (Free Text) Assessment: hyponatremia likely dilutional- fluid restriction recommended aggressive uf w/ hd as tolerated no iv iron
--- NOTE | 2018-02-18 14:02 | MRI ---
PROCEDURE: Magnetic Resonance Cholangiopancreatography HISTORY: COMPARISON: None available. TECHNIQUE: Multiplanar, multisequence MR images of the abdomen were obtained, including heavily T2 weighted MRCP images of the biliary system. Rotating maximum intensity projection images of the biliary system were generated. FINDINGS: MRCP: The common bile duct is of a normal caliber. No evidence of choledocholithiasis. No intrahepatic biliary ductal dilatation. LIVER: Unremarkable. GALLBLADDER: Status post cholecystectomy SPLEEN: Unremarkable. PANCREAS: Unremarkable. ADRENALS: Unremarkable. KIDNEYS: Bilaterally atrophic kidneys with small cysts. Likely dialysis related cystic disease. Largest cyst mid left kidney, 2.8 cm. AORTA: No aneurysm. ASCITES: Mild ascites, most notably perisplenic. OTHER FINDINGS: Small bilateral pleural effusion and lower lobe subsegmental atelectasis, right greater than left. IMPRESSION: No evidence of biliary obstruction. Status post cholecystectomy. Atrophic kidneys with small cysts. Mild ascites. Bilateral pleural effusion with lower lobe subsegmental atelectasis. Preliminary interpretation of this examination was reported by [facility] at 5:25 p.m. on 02/17/2018. There is concurrence of this report with the preliminary interpretation.
--- NOTE | 2018-02-18 19:16 | PN ---
DATE: 02/18/2018 SUBJECTIVE: The patient just completed his hemodialysis. He denies any chest pain, abdominal pain has improved. PHYSICAL EXAMINATION: VITAL SIGNS: Blood pressure 155/85, heart rate 76, temperature 97.4, respirations 20. HEENT: Normocephalic. CHEST: Clear. HEART: S1 and S2 regular. EXTREMITIES: No edema. LABORATORY DATA: SMA-7: Sodium 125, potassium 4.3, chloride 85, CO2 25, glucose 88, BUN 36, creatinine 6.5. The patient's hemoglobin and hematocrit 11.4 and 32.8, white count and platelet count are within normal limits. MRCP revealed no evidence of major obstruction, status post cholecystectomy, atrophic kidneys with , mild ascites, bilateral pleural effusion with lower lobe subsegmental atelectasis. Today's AST and ALT are 80 and 179 and 528 respectively, alkaline phosphatase is 140. ASSESSMENT: 1. Oosb-dj-uvtycbietk depressed left ventricular systolic function. 2. Abnormal EKG with evidence of anterolateral ischemia on initial EKG. 3. End-stage renal disease, on hemodialysis. 4. Hypothyroidism. 5. Hypertension. 6. Status post cholecystectomy. 7. The patient is currently having elevated liver enzymes. RECOMMENDATIONS: I did review Dr. Perez's evaluation and assessment, I suspect congestion. I doubt hemochromatosis in this manner and the management for underlying CHF. Continue current Coreg 6.25 mg twice a day, Pepcid 20 mg once a day, Synthroid 125 mcg once a day, Vasotec at 2.5 mg once a day. Blu London MD
[2018-02-19] MEDS: Levothyroxine 125 MCG TAB PO SCH (05:30)
[2018-02-19 07:49] VITALS: TEMP 97.7; O2SAT 97
[2018-02-19 07:52] LABS: INR 1.2
[2018-02-19 07:57] LABS: BASO # 0.1 K/uL (0.0-0.2); BASO % 1.1 % (0.0-2.0); EOS # 0.4 K/uL (0.0-0.7); EOS % 8.1 % (0.0-4.0); HEMOGLOBIN 11.4 g/dL (12.0-18.0); LYMPH # 1.1 K/uL (1.0-4.3); LYMPH % 21.2 % (20.0-40.0); MEAN CORPUSCULAR HEMOGLOBIN 30.1 pg (27.0-31.0); MEAN PLATELET VOLUME 8.5 fL (7.2-11.7); MONO # 0.5 K/uL (0.0-0.8); MONO % 9.7 % (0.0-10.0); NEUT # 3.2 K/uL (1.8-7.0); NEUT % 59.9 % (50.0-75.0); NRBC % 0.3 % (0.0-2.0); RBC 3.79 Mil/uL (4.40-5.90); RED CELL DISTRIBUTION WIDTH 17.6 % (11.5-14.5); WHITE BLOOD COUNT 5.4 K/uL (4.8-10.8)
[2018-02-19 08:20] LABS: ALB/GLOB RATIO 1.3 (1.0-2.1); ALBUMIN 3.4 g/dL (3.5-5.0); CALCIUM 8.4 mg/dl (8.6-10.4)
--- NOTE | 2018-02-19 08:27 | CP.PCM.PN ---
Subjective - Date & Time of Evaluation Date of Evaluation: 02/19/18 Time of Evaluation: 08:10 - Subjective Subjective: F/u elev LFTs. Abdom pain- improving. Denies fever, chills, CP, SOB, RB, melena, diarrhea, myalgia, hematuria, hemoptysis Objective - Vital Signs/Intake and Output Vital Signs (last 24 hours): Temp Pulse Resp BP Pulse Ox 97.7 F 62 20 147/84 97 02/19/18 07:00 02/19/18 08:12 02/19/18 07:00 02/19/18 07:00 02/19/18 07:00 Intake and Output: 02/19/18 02/19/18 06:59 18:59 Intake Total 700 Balance 700 - Medications Medications: Current Medications Calcium Acetate (Phoslo) 667 mg PO TID [facility] Last Admin: 02/18/18 17:20 Dose: 667 mg Carvedilol (Coreg) 6.25 mg PO BID [facility] Last Admin: 02/18/18 17:20 Dose: 6.25 mg Enalapril Maleate (Vasotec) 2.5 mg PO DAILY [facility] Last Admin: 02/18/18 09:06 Dose: Not Given Famotidine (Pepcid) 20 mg PO DAILY [facility] Last Admin: 02/18/18 09:05 Dose: 20 mg Levothyroxine Sodium (Synthroid) 125 mcg PO DAILY@0630 [facility] Last Admin: 02/19/18 05:30 Dose: 125 mcg Tamsulosin HCl (Flomax) 0.4 mg PO DAILY [facility] Last Admin: 02/18/18 09:05 Dose: 0.4 mg - Labs Labs: 02/19/18 07:32 02/19/18 07:32 PT 13.0 SECONDS (9.7-12.2) H 02/19/18 07:32 INR 1.2 02/19/18 07:32 APTT 28 SECONDS (21-34) 02/16/18 05:15 - Constitutional Appears: Well - Respiratory Exam Respiratory Exam: Clear to Ausculation Bilateral - Cardiovascular Exam Cardiovascular Exam: RRR - GI/Abdominal Exam GI & Abdominal Exam: Soft, Normal Bowel Sounds. absent: Guarding, Rigid, Tenderness, Mass, Rebound - Extremities Exam Extremities Exam: absent: Calf Tenderness - Neurological Exam Neurological Exam: Alert, Oriented x3 Assessment and Plan (1) Abdominal pain Assessment & Plan: s/p MADAI. Pain is improving. Status: Acute (2) Abnormal liver enzymes Assessment & Plan: Due to passive hepatic congestion. LFTs are decreasing. Status: Acute (3) Cholecystitis Assessment & Plan: s/p MADAI Status: Acute (4) ESRD (end stage renal disease) on dialysis Status: Acute (5) Anemia Assessment & Plan: chronic. CRF, HD Status: Chronic (6) Hypertension Status: Chronic
--- NOTE | 2018-02-19 09:24 | CP.PCM.DIS ---
Provider - Provider Date of Admission: 02/15/18 15:52 Attending physician: Elton Yo MD Time Spent in preparation of Discharge (in minutes): 55 Hospital Course - Lab Results Lab Results: Micro Results 02/15/18 15:30 Blood Blood Culture - Preliminary NO GROWTH AFTER 3 DAYS 02/15/18 15:00 Blood Blood Culture - Preliminary NO GROWTH AFTER 3 DAYS 02/15/18 15:46 Urine Urine Culture - Final No Growth (<1,000 CFU/ML) Most Recent Lab Values WBC 5.4 K/uL (4.8-10.8) 02/19/18 07:32 RBC 3.79 Mil/uL (4.40-5.90) L 02/19/18 07:32 Hgb 11.4 g/dL (12.0-18.0) L 02/19/18 07:32 Hct 34.5 % (35.0-51.0) L 02/19/18 07:32 MCV 91.0 fL (80.0-94.0) 02/19/18 07:32 MCH 30.1 pg (27.0-31.0) 02/19/18 07:32 MCHC 33.0 g/dL (33.0-37.0) 02/19/18 07:32 RDW 17.6 % (11.5-14.5) H 02/19/18 07:32 Plt Count 155 K/uL (130-400) 02/19/18 07:32 MPV 8.5 fL (7.2-11.7) 02/19/18 07:32 Neut % (Auto) 59.9 % (50.0-75.0) 02/19/18 07:32 Lymph % (Auto) 21.2 % (20.0-40.0) 02/19/18 07:32 [place] % (Auto) 9.7 % (0.0-10.0) 02/19/18 07:32 Eos % (Auto) 8.1 % (0.0-4.0) H 02/19/18 07:32 Baso % (Auto) 1.1 % (0.0-2.0) 02/19/18 07:32 Neut # (Auto) 3.2 K/uL (1.8-7.0) 02/19/18 07:32 Lymph # (Auto) 1.1 K/uL (1.0-4.3) 02/19/18 07:32 [place] # (Auto) 0.5 K/uL (0.0-0.8) 02/19/18 07:32 Eos # (Auto) 0.4 K/uL (0.0-0.7) 02/19/18 07:32 Baso # (Auto) 0.1 K/uL (0.0-0.2) 02/19/18 07:32 Retic Count 4.4 % (0.5-1.5) H D 02/15/18 21:23 Haptoglobin 210.8 mg/dL (30.0-200.0) H 02/16/18 05:15 PT 13.0 SECONDS (9.7-12.2) H 02/19/18 07:32 INR 1.2 02/19/18 07:32 APTT 28 SECONDS (21-34) 02/16/18 05:15 Sodium 131 mmol/L (132-148) L 02/19/18 07:32 Potassium 4.7 mmol/L (3.6-5.2) 02/19/18 07:32 Chloride 90 mmol/L (98-107) L 02/19/18 07:32 Carbon Dioxide 29 mmol/L (22-30) 02/19/18 07:32 Anion Gap 18 (10-20) 02/19/18 07:32 BUN 22 mg/dL (9-20) H 02/19/18 07:32 Creatinine 4.7 mg/dL (0.8-1.5) H 02/19/18 07:32 Est GFR ( Amer) 15 02/19/18 07:32 Est GFR (Non-Af Amer) 12 02/19/18 07:32 POC Glucose (mg/dL) 98 mg/dL (65-110) 02/19/18 06:24 Random Glucose 85 mg/dL (75-110) 02/19/18 07:32 Serum Osmolality 281 mosm/kg (272-300) 02/15/18 16:09 Calcium 8.4 mg/dl (8.6-10.4) L 02/19/18 07:32 Phosphorus 4.3 mg/dL (2.5-4.5) 02/19/18 07:32 Magnesium 2.2 mg/dL (1.6-2.3) 02/19/18 07:32 Iron 41 ug/dL (49-181) L 02/19/18 07:32 TIBC 235 ug/dL (250-450) L 02/16/18 05:15 % Saturation 25 (20-55) 02/16/18 05:15 Ferritin 4430.0 ng/mL 02/15/18 21:23 Total Bilirubin 0.8 mg/dL (0.2-1.3) 02/19/18 07:32 GGT 232 U/L (8-78) H 02/15/18 13:29 AST 110 U/L (17-59) H D 02/19/18 07:32 ALT 400 U/L (21-72) H D 02/19/18 07:32 Alkaline Phosphatase 157 U/L (38-126) H 02/19/18 07:32 Total Creatine Kinase 291 U/L (55-170) H 02/15/18 21:23 CK-MB (Mass) 1.55 ng/mL (0.0-3.38) 02/15/18 21:23 Troponin I 0.0300 ng/mL (0.00-0.120) 02/15/18 21:23 NT-Pro-B Natriuret Pep 74989 pg/mL (0-900) H 02/15/18 15:50 Total Protein 6.1 g/dL (6.3-8.3) L 02/19/18 07:32 Albumin 3.4 g/dL (3.5-5.0) L 02/19/18 07:32 Globulin 2.7 gm/dL (2.2-3.9) 02/19/18 07:32 Albumin/Globulin Ratio 1.3 (1.0-2.1) 02/19/18 07:32 Amylase 74 U/L (30-110) 02/15/18 06:13 Lipase 53 U/L (23-300) 02/15/18 06:13 Vitamin B12 > 1000 pg/mL (239-931) H 02/16/18 05:15 Folate 15.2 ng/mL 02/16/18 05:15 Free T4 1.66 ng/dL (0.78-2.19) 02/16/18 05:15 TSH 3rd Generation 9.89 mIU/L (0.46-4.68) H 02/16/18 05:15 Urine Color Yellow (YELLOW) 02/15/18 15:46 Urine Clarity Clear (Clear) 02/15/18 15:46 Urine pH 8.0 (5.0-8.0) 02/15/18 15:46 Ur Specific [place] 1.008 (1.003-1.030) 02/15/18 15:46 Urine Protein 100 mg/dL (NEGATIVE) 02/15/18 15:46 Urine Glucose (UA) 1+ mg/dL (Normal) H 02/15/18 15:46 Urine Ketones Negative mg/dL (NEGATIVE) 02/15/18 15:46 Urine Blood Negative (NEGATIVE) 02/15/18 15:46 Urine Nitrate Negative (NEGATIVE) 02/15/18 15:46 Urine Bilirubin Negative (NEGATIVE) 02/15/18 15:46 Urine Urobilinogen Normal mg/dL (0.2-1.0) 02/15/18 15:46 Ur Leukocyte Esterase Neg Kye/uL (Negative) 02/15/18 15:46 Urine WBC (Auto) 1 /hpf (0-5) 02/15/18 15:46 Urine RBC (Auto) < 1 /hpf (0-3) 02/15/18 15:46 Ur Squamous Epith Cells < 1 /hpf (0-5) 02/15/18 15:46 Urine Osmolality 284 mosm/kg (300-1000) L 02/15/18 16:09 Ur Random Sodium 73 mmol/L 02/15/18 16:09 Urine Chloride 32 mmol/L (32-290) 02/15/18 16:09 Acetaminophen < 10.0 ug/mL (10.0-30.0) L 02/15/18 13:29 Alcohol, Quantitative < 10 mg/dl (0-10) 02/15/18 15:50 Hepatitis A IgM Ab Negative (NEGATIVE) 02/15/18 13:29 Hep Bs Antigen Negative (NEGATIVE) 02/15/18 13:29 Hep B Core IgM Ab Negative (NEGATIVE) 02/15/18 13:29 Hepatitis C Antibody Negative (NEGATIVE) 02/15/18 13:29 HIV 1&2 Ag/Ab, 4th Gen Nonreactive (Nonreactive) 02/16/18 11:42 - Hospital Course Hospital Course: Upon Admission: CC: abdominal pain x 15 days HPI: 67M presents with abdominal pain for 15 days. Patient states he started having this abdominal pain and swelling of abdomen after the surgery. Patient states he has mid-epigastric pain, with difficulty breathing. Patient states he has not been able to sleep well for the past 4 days due to abdominal pain. Patient also states that he feels like he has less energy. Patient states he has never had much swelling in his abdomen before. Patient states he never had issues with his liver and was never told of a family history of liver problems, cancer. Patient states that he is from [facility] and has not drank any alcohol since leaving [facility]. He said last drink was 4-5 years ago. Patient admits to having a smoking history. Patient denies fever, chills, cough, vomiting, nausea, diarrhea, constipation. Patient admits to abdominal pain. PMH: HTN, ESRD on HD MWF, hypothyroidism, systolic HF last known EF 36%, Hypercholesterolemia PSH: Left AV Fistula, 01/27/18 chronic cholecystitis s/p laparoscopic cholecystectomy Social Hx: Patient admits to smoking, states he used to drink a lot of ETOH in [facility] but quit about 4-5 years ago, denies illicit drug use Family Hx: sister due to renal failure. his brothers are healthy and well. Throughout Hospital Course: Transaminitis -- downtrending * GI consult: Dr. Perez for transamnitis, in patient with CHF and ESRD * Etiology: possibly related to medications, chf exacerbation affecting the liver, patient is former history of alcohol abuse (last drink 4 years ago); acute phase reactant; likely 2/2 CHF/ congestive hepatopathy * Pending MRCP: No evidence of biliary obstruction. Status post cholecystectomy. Atrophic kidneys with small cysts. Mild ascites. Bilateral pleural effusion with lower lobe subsegmental atelectasis. * Dr. Perez reviewed with radiologist : "Normal CBD. Liver with decreased density, ?Iron overload. Large mesenteric fat appearance"; * Suspect passive hepatic congestion * Patient denies herbals; OTC medications, denies alcohol, with prior history of cholelithiasis. * We have held medications metabolized by liver including statin, benadryl, benzodiazepines, tylenol, antibiotics, toradol, anti-emetics----Please check hepatic impairment of medications prior to prescribing medications. Nursing communication has been ordered Imaging: * Abdominal US (02/15/18): stable limited abdomen ultraounds status post prior cholecystectomy. Normal CBD caliber. No prominent intrahepatic biliary dilatation. partial imaging of the pancreas and marked right renal atrophy again evident * CT abdomen/pelvis (02/12/18): cholecystectomy. mild stranding in the gallbladder fossa most likely post surgical. Nonspecific trace ascites. No fluid collection. No bowel obstruction or acute colitis. Mildly thick walled probably secondary to nondistension. Bilateral pleural effusions with bibasilar atelectasis. Workup: * Tylenol level: negative * Hepatitis panel - negative * GGT: 223, elevated * CPK is downtrending Hx Systolic Heart Failure with LVEF 30% * Cardiology consulted - Dr. London * Fluid restriction 1.5 L daily * daily weight * strict intake/output * Echo 06/2017: mild-moderate LV systolic heart. EF 36% * stress test (2013 No significant/stress, normal perfusion) * Continue patient's coreg, enalapril * Repeat ECHO: LVEF 25-30%, systolic function severely impaired. Moderate Pulm HTN and Tricuspid regurg Hyponatremia * Nephrology Dr. Banks for ESRD, and hyponatremia * Ordered serum osmolarity, urine osm, urine sodium, urine chloride * Fluid restriction 1.2 L daily * Diet 2 gm Na * No IV fluids. given consideration for CHF with EF <35% ESRD on HD MWF * Nephrology Consult: Dr. Banks[facility] consulted * Procrit 6,000 IV MWF, Phoslo * LUE AVF History of Hypothyroidism * C/w home medication Levothyroxine 125mcg - will need repeat TSH, free T4 in 2- 3 weeks as medication was restarted 3 weeks ago (the week of 01/22/2018) * TSH 9.89 History of Hypertension * Restart patient's coreg and enalapril History of Hyperlipidemia * Stopped statin secondary to LFTs - will recontinue in outpatient setting if LFTs normalize Anemia of Chronic disease * Reticulocyte count 4.4, haptoglobin - 210.8 - likely acute phase reactants History of cholelithiasis Status post cholecystectomy * Surgery (Dr. Moore) resident came to evaluate the patient, do not believe the elevated LFTS are related to the surgery * Abdominal US (02/15/18): stable limited abdomen ultraounds status post prior cholecystectomy. Normal CBD caliber. No prominent intrahepatic biliary dilatation. partial imaging of the pancreas and marked right renal atrophy again evident * CT abdomen/pelvis (02/12/18): cholecystectomy. mild stranding in the gallbladder fossa most likely post surgical. Nonspecific trace ascites. No fluid collection. No bowel obstruction or acute colitis. Mildly thick walled probably secondary to nondistension. Bilateral pleural effusions with bibasilar atelectasis. * Bilirubin not high; GGT: 223, elevated History of heavy alcohol use * patient quit 4-5 years ago-> heavy use, does not smell like alcohol on exam * check blood alcohol level * Abdominal US (02/15/18): stable limited abdomen ultraounds status post prior cholecystectomy. Normal CBD caliber. No prominent intrahepatic biliary dilatation. partial imaging of the pancreas and marked right renal atrophy again evident History of Urinary retention * patient has prior history of urinary retention in last hospitalization * Renal US/bladder US: Diminutive kidneys with diffuse increased echogenicity suggestive for medical renal disease. Clinical correlation. Bilateral renal cysts. Limited visualization of the urinary bladder. Clinical correlation. Heterogeneous and prominent prostate. Right pleural effusion. Abdominal ascites. * c/w flomax Please review EMR for full record - as this is a brief summary of the patient's hospital course. Discharge Exam - Additional Findings Additional findings: - Head Exam Head Exam: ATRAUMATIC, NORMAL INSPECTION, NORMOCEPHALIC - Eye Exam Eye Exam: EOMI, Normal appearance - ENT Exam ENT Exam: Mucous Membranes Moist, Normal Exam - Neck Exam Neck Exam: Full ROM. absent: Tenderness - Respiratory Exam Respiratory Exam: Clear to Ausculation Bilateral, NORMAL BREATHING PATTERN - Cardiovascular Exam Cardiovascular Exam: REGULAR RHYTHM, +S1, +S2 - GI/Abdominal Exam GI & Abdominal Exam: Distended, Soft. absent: Firm, Guarding, Rigid, Tenderness Additional comments: scars from laparoscopic cholecystectomy 01/27/18 No erythema, drainage - Extremities Exam Extremities Exam: Full ROM, LUE AVF. absent: Pedal Edema - Back Exam Back Exam: Full ROM - Neurological Exam Neurological Exam: Alert, Awake, CN II-XII Intact, Oriented x3 - Psychiatric Exam Psychiatric exam: Normal Affect, Normal Mood - Skin Skin Exam: Dry, Intact, Normal Color, Warm Discharge Plan - Discharge Medications Prescriptions: Aspirin [Ecotrin] 81 mg PO DAILY #30 tabec Calcium Acetate [Phoslo] 667 mg PO ACHS #90 tab Carvedilol [Coreg] 6.25 mg PO BID #60 tab Enalapril Maleate [Vasotec] 2.5 mg PO DAILY #30 tab Famotidine [Pepcid] 20 mg PO DAILY #30 tab Levothyroxine [Synthroid] 125 mcg PO DAILY@0630 #30 tab Tamsulosin [Flomax] 0.4 mg PO DAILY #30 cap - Follow Up Plan Condition: STABLE Disposition: HOME/ ROUTINE Instructions: End Stage Kidney Disease, Dialysis and Diet, Renal Failure Diet ( DC) Additional Instructions: You will need to first attend your appointment with our [facility] in the [facility] [phone]. YOU HAVE AN APPOINTMENT on March 13, 2018 at 2:30pm with Dr. Makayla Barraza. PLEASE ATTEND THIS APPOINTMENT so that you can be followed by a physician, have blood work done, and be provided with refills for all of your medications. During this appointment, I will be able to provide for you: refills for your medications, I will also be taking your blood work that day - to check your liver numbers. You will be taking the following medications ONLY: Aspirin 81mg by mouth daily Synthroid 125mcg by mouth daily ( for your thyroid) Please take at 6:30am Coreg 6.25mg by mouth twice a day (for your blood pressure) Please take at 6: 30am and 6:30pm Flomax 0.4mg by mouth daily ( for your enlarged prostate) Please take at 6:30am Pepcid 20mg by mouth daily (for your acid reflux) Please take at 6:30am Vasotec 2.5 by mouth daily (for your blood pressure) Please take at 12pm Phoslo please take 3 times a day with breakfast, lunch, and dinner DO NOT TAKE SIMVASTATIN 10mg by mouth - we need to continue following your liver numbers before we restart this medication. When I see you in the clinic and check your blood work - we will determine if its okay for you to resume the medication. Please continue with your Friday, Friday, and Friday dialysis as scheduled. Please continue with a SALT FREE diet and also you are only allowed LESS than 1.2 liters of liquids per day. The more liquids you consume the fluid will back up into your lungs. PLEASE do not drink more than 1.2 liters of fluids per day. Please take care and be well. -- Necesitar asistir marika a rader alfredo con nuest[facility] [place] [facility] en el [facility] [facility] [phone]. USTED TIENE CEFERINO ALFREDO EL 2017 A LAS 2:30 PM CON LA DOCTOR MAKAYLA BARRAZA. ASISTA A ESTA ALFREDO PARA QUE UN MDICO PUEDA SEGUIRTE, REALIZARTE CEFERINO MUESTRA DE TERRI Y PODR TENER RESULTADOS PARA TODOS DANIEL MEDICAMENTOS. Leela esta alfredo, podr proporcionarle: resurtidos para daniel medicamentos, tambi n anita rader anlisis de terri douglas da - para verificar daniel nmeros de hgado. Anita los siguientes medicamentos SOLAMENTE: Aspirina, 81 mg por va oral al da Synthroid 125mcg por va oral todos los joyce (para la tiroides) [place] a las 6:30 a.m. Coreg 6.25 mg por va oral dos veces al da (para la presin arterial) Por favor , tome a las 6:30 a.m. y a las 6:30 p.m. Flomax 0.4mg por va oral al da (para rader prstata agrandada) Por favor tome a las 6:30 a.m. Pepcid 20mg por va oral todos los joyce (para rader reflujo cido) Por favor tome a las 6:30 a.m. Vasotec 2.5 por la boca todos los joyce (para rader presin arterial) Por favor tome a las 12:00 p.m. Phoslo por favor tome 3 veces al da con desayuno, almuerzo y tra NO TOME SIMVASTATIN 10 mg por la boca; debemos seguir daniel cifras de hgado antes de volver a anita zander medicamento. Cuando te veo en la clnica y revisas tu anlisis de terri, determinaremos si est marjan que retires la medicacin. Contine con rader dilisis de lunes, mircoles y viernes segn lo programado. Contine con ceferino dieta SIN ABIGAIL y tambin solo se le permite MENOS de 1,2 litros de lquidos por da. Cuantos ms lquidos consuma, el lquido retroceder a daniel pulmones. POR FAVOR, no tome ms de 1.2 litros de lquidos por da. Por favor cudate y estate marjan. Referrals: Robert Banks MD [Staff Provider] -
[2018-02-19 10:07] VITALS: BP 141/83
[2018-02-19 12:06] VITALS: PULSE 72
--- NOTE | 2018-02-19 13:04 | PN ---
DATE: SUBJECTIVE: The patient denies any chest pain or shortness of breath. No dizziness. PHYSICAL EXAMINATION: VITAL SIGNS: Blood pressure 141/83, heart rate 62, temperature 97.7, respirations 20. HEENT: Normocephalic. CHEST: Clear. HEART: S1 and S2, regular. ABDOMEN: Soft. EXTREMITIES: No edema. LABORATORY DATA: Today's SMA-7; sodium 131, potassium 4.7, chloride 90, CO2 of 29, glucose 85. BUN 22, creatinine 4.7. AST and ALT are 110 and respectively. Alkaline phosphatase 157. ASSESSMENT: 1. Lqdb-aw-gncaouwj systolic heart failure. 2. Status post laparoscopic cholecystectomy. 3. Improving hepatitis and cholestasis. 4. End-stage renal disease, on hemodialysis. 5. Mild coagulopathy. 6. Hypothyroidism. RECOMMENDATIONS: Continue Coreg 6.25 mg twice a day, Vasotec 2.5 mg once a day, Synthroid 125 mcg once a day, mg orally once a day, and the patient can be discharged from the cardiac point of view on medical management. Blu London MD
[2018-02-20 14:37] LABS: HETEROPHILE MONO SCREEN Negative (Negative)
== END 2018-02-19 13:30 | disposition home or self-care (01) | DRG 291 ==
LOC: C.ER 05:08 → UNDOADMIN 06:55 → C.9E 06:55 → OBSVTOIN 15:52 → C.5S 02-16 04:59
PROVIDERS: ADMIT Internal Medicine; ATTEND Family Medicine
PROC: 5A1D70Z Performance of Urinary Filtration, Intermittent, Less than 6 Hours Per Day (ICD-10-PCS; principal; 2018-02-16)
PROC: 5A1D70Z Performance of Urinary Filtration, Intermittent, Less than 6 Hours Per Day (ICD-10-PCS; 2018-02-18)
DX: I13.2 Hypertensive heart and chronic kidney disease with heart failure and with stage 5 chronic kidney disease, or end stage renal disease (principal); N18.6 End stage renal disease; I50.22 Chronic systolic (congestive) heart failure; J98.11 Atelectasis; E87.1 Hypo-osmolality and hyponatremia; D68.9 Coagulation defect, unspecified; R18.8 Other ascites; K59.00 Constipation, unspecified; I27.20 Pulmonary hypertension, unspecified; F17.200 Nicotine dependence, unspecified, uncomplicated; E78.5 Hyperlipidemia, unspecified; E03.9 Hypothyroidism, unspecified; D63.8 Anemia in other chronic diseases classified elsewhere; K76.1 Chronic passive congestion of liver; N28.1 Cyst of kidney, acquired; Z99.2 Dependence on renal dialysis; I08.1 Rheumatic disorders of both mitral and tricuspid valves

== ENCOUNTER 2018-03-09 10:50 | Inpatient (IN) | payer OTHER ==
--- NOTE | 2018-03-09 12:50 | C.PDOC ---
History Of Present Illness 67 y/o M c PSHx cholecystectomy 2 months ago p/w abdominal pain x 2 months and NBNB vomiting x 2 weeks. Denies fever, chills, chest pain, dyspnea, dysuria. Time Seen by Provider: 03/09/18 11:59 Chief Complaint (Nursing): Abdominal Pain Past Medical History Vital Signs: Last Vital Signs Temp 97.7 F 03/09/18 17:34 Pulse 90 03/09/18 17:34 Resp 16 03/09/18 17:34 BP 173/97 H 03/09/18 17:34 Pulse Ox 100 03/09/18 17:34 - Medical History PMH: Arthritis, HTN, Hypothyroidism, Peripheral Edema (left arm and hand edema) , End Stage Renal Disease, Chronic Kidney Disease Denies: Alzheimer's Disease, Anemia, Anxiety, Atrial Fibrillation, Bipolar Disorder, Cardia Arrhythmia, CHF, Crohn's Disease, Dementia, Depression, Diverticulitis, Fractures, Gastritis, Gall Bladder Disease, HIV, Hypercholesterolemia, Hyperthyroidism, Kidney Stones, Migraine, Mitral Valve Prolapse, Multiple Sclerosis, Osteoporosis, Paranoia, Parkinson's Disease, Post Traumatic Stress Disorder, Rheumatoid Arthritis, Schizophrenia, Seizures, Sickle Cell Disease, Sexually Transmitted Disease, TIA Surgical History: Cholecystectomy Denies: Appendectomy, CABG, Carotid Endarterectomy, Coronary Stent, Pacemaker , Tonsillectomy - [facility] Procedures (02/15/18) ARTHROCENTESIS (06/24/14) DIALYSIS ARTERIOVENOSTOM (06/24/14) HEMODIALYSIS (06/24/14) RESECTION OF GALLBLADDER, PERCUTANEOUS ENDOSCOPIC APPROACH (01/26/18) VENOUS CATHETERIZATION FOR RENAL DIALYSIS (06/24/14) Family History: States: Unknown Family Hx - Social History Hx Tobacco Use: No Hx Alcohol Use: No Hx Substance Use: No - Immunization History Hx Tetanus Toxoid Vaccination: No Hx Influenza Vaccination: No Hx Pneumococcal Vaccination: No Review Of Systems Except As Marked, All Systems Reviewed And Found Negative. Constitutional: Negative for: Fever Respiratory: Negative for: Shortness of Breath Physical Exam - Physical Exam Additional Physical Exam Comments: Gen: NAD Head: NC/AT Eyes: No icterus ENT: MMM Neck: Supple Chest: No tenderness CV: Regular rate Lungs: CTA b/l Abd: Soft, diffuse tenderness Skin: No rash Back: No CVA tenderness Extremities: No edema Neuro: Alert, no focal deficit ED Course And Treatment - Laboratory Results Result Diagrams: 03/09/18 12:45 03/09/18 12:45 O2 Sat by Pulse Oximetry: 99 Medical Decision Making Medical Decision Making: CT abdomen/pelvis w/o: PROCEDURE: CT Abdomen and Pelvis without intravenous contrast HISTORY: abdominal pain COMPARISON: 02/12/2018 TECHNIQUE: Without contrast.. Contrast dose: 0 Radiation dose: Total exam DLP = 825.63 mGy-cm. This CT exam was performed using one or more of the following dose reduction techniques: Automated exposure control, adjustment of the mA and/or kV according to patient size, and/or use of iterative reconstruction technique. FINDINGS: LOWER THORAX: Moderate right pleural effusion. Right lower lobe subsegmental atelectasis. No left pleural effusion. Nodular granulomatous calcification within atelectatic right lower lobe. Nodular calcification in right hilum. Consistent with old granulomatous disease. LIVER: Normal size, contour and attenuation. No mass. No biliary dilatation. Smooth contour. GALLBLADDER AND BILE DUCTS: Status post cholecystectomy PANCREAS: Unremarkable. No gross lesion or ductal dilatation. SPLEEN: Unremarkable. ADRENALS: Unremarkable. No mass. KIDNEYS AND URETERS: Right parapelvic renal cyst. Multiple left parapelvic and cortical cysts. Atrophic kidneys. No hydronephrosis. VASCULATURE: Unremarkable. No aortic aneurysm. BOWEL: Unremarkable. No obstruction. No gross mural thickening. APPENDIX: Unremarkable. Normal appendix. PERITONEUM: Ascites, mild. Predominantly about liver and spleen but extending into right pericolic gutter as well. Minimal fluid in pelvis. LYMPH NODES: Unremarkable. No enlarged lymph nodes. BLADDER: Nondistended REPRODUCTIVE: Normal prostate BONES: No acute fracture. OTHER FINDINGS: None. IMPRESSION: Right pleural effusion and right lower lobe subsegmental atelectasis. Old granulomatous disease. Mild ascites. No acute inflammatory or neoplastic process identified. Status post cholecystectomy. Atrophic kidneys. Parapelvic and cortical renal cysts as described. No hydronephrosis. Dr. Banks consulted, will arrange dialysis. Dr. Shields accepts patient to medical service. Disposition - Disposition Disposition: HOSPITALIZED Disposition Time: 15:30 Condition: GUARDED - Clinical Impression Clinical Impression: ESRD (end stage renal disease), Pleural effusion
[2018-03-09 12:51] LABS: BASO % 0.8 % (0.0-2.0); EOS # 0.1 K/uL (0.0-0.7); EOS % 1.9 % (0.0-4.0); HEMOGLOBIN 12.5 g/dL (12.0-18.0); LYMPH # 0.9 K/uL (1.0-4.3); LYMPH % 15.6 % (20.0-40.0); MEAN CELL VOLUME 90.4 fL (80.0-94.0); MEAN CORPUSCULAR HGB CONC 33.2 g/dL (33.0-37.0); MEAN PLATELET VOLUME 9.2 fL (7.2-11.7); MONO # 0.4 K/uL (0.0-0.8); MONO % 7.1 % (0.0-10.0); NEUT # 4.5 K/uL (1.8-7.0); NEUT % 74.6 % (50.0-75.0); RBC 4.16 Mil/uL (4.40-5.90); RED CELL DISTRIBUTION WIDTH 16.8 % (11.5-14.5); WHITE BLOOD COUNT 6.1 K/uL (4.8-10.8)
[2018-03-09 12:56] LABS: SQUAMOUS EPITHIAL < 1 /hpf (0-5); URINE BACTERIA RARE (<OCC); URINE BILIRUBIN NEGATIVE (NEGATIVE); URINE BLOOD 1+ (NEGATIVE); URINE CLARITY Clear (Clear); URINE COLOR Yellow (YELLOW); URINE GLUCOSE (UA) 1+ mg/dL (Normal); URINE LEUKOCYTE ESTERASE NEG Leu/uL (Negative); URINE PROTEIN 3+ mg/dL (NEGATIVE); URINE UROBILINOGEN NORMAL mg/dL (0.2-1.0)
[2018-03-09 13:18] LABS: ALB/GLOB RATIO 1.5 (1.0-2.1); ALBUMIN 4.3 g/dL (3.5-5.0)
--- NOTE | 2018-03-09 13:55 | CT ---
PROCEDURE: CT Abdomen and Pelvis without intravenous contrast HISTORY: abdominal pain COMPARISON: 02/12/2018 TECHNIQUE: Without contrast.. Contrast dose: 0 Radiation dose: Total exam DLP = 825.63 mGy-cm. This CT exam was performed using one or more of the following dose reduction techniques: Automated exposure control, adjustment of the mA and/or kV according to patient size, and/or use of iterative reconstruction technique. FINDINGS: LOWER THORAX: Moderate right pleural effusion. Right lower lobe subsegmental atelectasis. No left pleural effusion. Nodular granulomatous calcification within atelectatic right lower lobe. Nodular calcification in right hilum. Consistent with old granulomatous disease. LIVER: Normal size, contour and attenuation. No mass. No biliary dilatation. Smooth contour. GALLBLADDER AND BILE DUCTS: Status post cholecystectomy PANCREAS: Unremarkable. No gross lesion or ductal dilatation. SPLEEN: Unremarkable. ADRENALS: Unremarkable. No mass. KIDNEYS AND URETERS: Right parapelvic renal cyst. Multiple left parapelvic and cortical cysts. Atrophic kidneys. No hydronephrosis. VASCULATURE: Unremarkable. No aortic aneurysm. BOWEL: Unremarkable. No obstruction. No gross mural thickening. APPENDIX: Unremarkable. Normal appendix. PERITONEUM: Ascites, mild. Predominantly about liver and spleen but extending into right pericolic gutter as well. Minimal fluid in pelvis. LYMPH NODES: Unremarkable. No enlarged lymph nodes. BLADDER: Nondistended REPRODUCTIVE: Normal prostate BONES: No acute fracture. OTHER FINDINGS: None. IMPRESSION: Right pleural effusion and right lower lobe subsegmental atelectasis. Old granulomatous disease. Mild ascites. No acute inflammatory or neoplastic process identified. Status post cholecystectomy. Atrophic kidneys. Parapelvic and cortical renal cysts as described. No hydronephrosis.
--- NOTE | 2018-03-09 16:33 | CP.PCM.HP ---
History of Present Illness - History of Present Illness History of Present Illness: pt came to er mised his dialysis has vomiting for5 days diarhea for 15 days s/p cholysystectomy 2 month ago Present on Admission - Present on Admission Any Indicators Present on Admission: No Review of Systems - Review of Systems Systems not reviewed;Unavailable: Acuity of Condition - Constitutional Constitutional: Fatigue - EENT Eyes: As Per HPI Ears: As Per HPI Nose/Mouth/Throat: As Per HPI - Cardiovascular Cardiovascular: As Per HPI - Respiratory Respiratory: As Per HPI - Gastrointestinal Gastrointestinal: Abdominal Pain, Diarrhea, Vomiting - Genitourinary Additional comments: esrf on dialysis - Reproductive: Male Reproductive:Male: As Per HPI - Musculoskeletal Musculoskeletal: As Per HPI - Integumentary Integumentary: As Per HPI - Neurological Neurological: As Per HPI - Psychiatric Psychiatric: As Per HPI - Endocrine Endocrine: Cold Intolorance - Hematologic/Lymphatic Hematologic: As Per HPI Past Patient History - Infectious Disease Hx of Infectious Diseases: None - Past Medical History & Family History Past Medical History?: Yes - Past Social History Smoking Status: Never Smoked - CARDIAC Hx Atrial Fibrillation: No Hx Cardia Arrhythmia: No Hx Congestive Heart Failure: No Hx Hypercholesterolemia: No Hx Hypertension: Yes Hx Mitral Valve Prolapse: No Hx Pacemaker: No Hx Peripheral Edema: Yes (left arm and hand edema) - PULMONARY Hx Respiratory Disorders: No - NEUROLOGICAL Hx Alzheimer's Disease: No Hx Dementia: No Hx Migraine: No Hx Multiple Sclerosis: No Hx Parkinson's Disease: No Hx Seizures: No Hx Transient Ischemic Attacks (TIA): No - HEENT Hx HEENT Problems: No - RENAL Hx Chronic Kidney Disease: Yes Hx Kidney Stones: No - ENDOCRINE/METABOLIC Hx Hyperthyroidism: No Hx Hypothyroidism: Yes - HEMATOLOGICAL/ONCOLOGICAL Hx Anemia: No Hx Human Immunodeficiency Virus (HIV): No Hx Sickle Cell Disease: No - INTEGUMENTARY Hx Dermatological Problems: No - MUSCULOSKELETAL/RHEUMATOLOGICAL Hx Arthritis: Yes Hx Fractures: No Hx Osteoporosis: No Hx Rheumatoid Arthritis: No - GASTROINTESTINAL Hx Crohn's Disease: No Hx Diverticulitis: No Hx Gall Bladder Disease: No Hx Gastritis: No - GENITOURINARY/GYNECOLOGICAL Hx Sexually Transmitted Disorders: No - PSYCHIATRIC Hx Anxiety: No Hx Bipolar Disorder: No Hx Depression: No Hx Paranoia: No Hx Post Traumatic Stress Disorder: No Hx Schizophrenia: No Hx Substance Use: No - SURGICAL HISTORY Hx Appendectomy: No Hx Carotid Endarterectomy: No Hx Cholecystectomy: Yes Hx Coronary Artery Bypass Graft: No Hx Coronary Stent: No Hx Tonsillectomy: No - ANESTHESIA Hx Anesthesia: Yes Hx Anesthesia Reactions: Yes Hx Malignant Hyperthermia: No Meds Allergies/Adverse Reactions: Allergies Allergy/AdvReac Type Severity Reaction Status Date / Time No Known Allergies Allergy Verified 02/15/18 05:28 Physical Exam - Constitutional Appears: Non-toxic - Head Exam Head Exam: NORMAL INSPECTION - Eye Exam Eye Exam: Normal appearance Pupil Exam: NORMAL ACCOMODATION - ENT Exam ENT Exam: Normal Exam - Neck Exam Neck exam: Positive for: Normal Inspection - Respiratory Exam Respiratory Exam: NORMAL BREATHING PATTERN - Cardiovascular Exam Cardiovascular Exam: REGULAR RHYTHM - GI/Abdominal Exam GI & Abdominal Exam: Distended, Normal Bowel Sounds - Rectal Exam Rectal Exam: NORMAL INSPECTION - Exam Exam: NORMAL INSPECTION - Extremities Exam Extremities exam: Positive for: full ROM - Back Exam Back exam: FULL ROM - Neurological Exam Neurological exam: Alert, Oriented x3 - Psychiatric Exam Psychiatric exam: Normal Mood - Skin Skin Exam: Intact Results - Vital Signs Recent Vital Signs: Last Vital Signs Temp 98.6 F 03/09/18 11:13 Pulse 89 03/09/18 14:33 Resp 18 03/09/18 14:33 BP 167/105 H 03/09/18 14:33 Pulse Ox 98 03/09/18 14:33 - Labs Result Diagrams: 03/09/18 12:45 03/09/18 12:45 Labs: Laboratory Results - last 24 hr 03/09/18 03/09/18 03/09/18 12:45 12:45 12:45 WBC 6.1 RBC 4.16 L Hgb 12.5 Hct 37.6 MCV 90.4 MCH 30.0 MCHC 33.2 RDW 16.8 H Plt Count 166 MPV 9.2 Neut % (Auto) 74.6 Lymph % (Auto) 15.6 L [place] % (Auto) 7.1 Eos % (Auto) 1.9 Baso % (Auto) 0.8 Neut # (Auto) 4.5 Lymph # (Auto) 0.9 L [place] # (Auto) 0.4 Eos # (Auto) 0.1 Baso # (Auto) 0.0 Sodium 135 Potassium 4.6 Chloride 93 L Carbon Dioxide 25 Anion Gap 22 H BUN 46 H Creatinine 8.1 H* D Est GFR ( Amer) 8 Est GFR (Non-Af Amer) 7 Random Glucose 116 H Calcium 10.0 Total Bilirubin 1.5 H AST 72 H D ALT 65 Alkaline Phosphatase 88 Total Protein 7.1 Albumin 4.3 Globulin 2.8 Albumin/Globulin Ratio 1.5 Lipase 117 Urine Color Yellow Urine Clarity Clear Urine pH 8.0 Ur Specific [place] 1.008 Urine Protein 3+ H Urine Glucose (UA) 1+ H Urine Ketones Negative Urine Blood 1+ H Urine Nitrate Negative Urine Bilirubin Negative Urine Urobilinogen Normal Ur Leukocyte Esterase Neg Urine WBC (Auto) 4 Urine RBC (Auto) 5 H Ur Squamous Epith Cells < 1 Urine Bacteria Rare Assessment & Plan - Assessment and Plan (Free Text) Assessment: ac gastroenteritis ESRF ON DIALYSIS Plan: ADMIT AND PER ORDERS - Date & Time Date: 03/09/18 Time: 16:39
[2018-03-09 17:53] LABS: FREE T4 2.61 ng/dL (0.78-2.19)
[2018-03-10] MEDS ORDERED: Levothyroxine 125 MCG TAB PO SCH (06:30)
--- NOTE | 2018-03-10 11:03 | CP.PCM.PN ---
Subjective - Date & Time of Evaluation Date of Evaluation: 03/10/18 Time of Evaluation: 11:00 - Subjective Subjective: PT FEELS BETER TODAY BP WAS HI LAST NIGHT MED INCREASED Objective - Vital Signs/Intake and Output Vital Signs (last 24 hours): Temp Pulse Resp BP Pulse Ox 98 F 77 20 123/75 98 03/10/18 00:00 03/10/18 00:00 03/10/18 00:00 03/10/18 09:25 03/10/18 00:00 Intake and Output: 03/10/18 03/10/18 06:59 18:59 Intake Total 320 Balance 320 - Medications Medications: Current Medications Aspirin (Ecotrin) 81 mg PO DAILY [facility] Last Admin: 03/10/18 09:25 Dose: 81 mg Calcium Acetate (Phoslo) 667 mg PO ACHS [facility] Last Admin: 03/10/18 08:20 Dose: 667 mg Carvedilol (Coreg) 25 mg PO BID [facility] Last Admin: 03/10/18 09:24 Dose: 25 mg Enalapril Maleate (Vasotec) 2.5 mg PO DAILY [facility] Last Admin: 03/10/18 09:25 Dose: 2.5 mg Famotidine (Pepcid) 20 mg PO DAILY [facility] Last Admin: 03/10/18 09:25 Dose: 20 mg Heparin Sodium (Porcine) (Heparin) 5,000 units SC Q12 [facility] Last Admin: 03/10/18 09:25 Dose: 5,000 units Levothyroxine Sodium (Synthroid) 125 mcg PO DAILY@0630 [facility] Ondansetron HCl (Zofran Inj) 4 mg IVP Q6H PRN PRN Reason: Nausea/Vomiting Tamsulosin HCl (Flomax) 0.4 mg PO DAILY [facility] Last Admin: 03/10/18 09:25 Dose: 0.4 mg - Labs Labs: 03/09/18 12:45 03/09/18 12:45 - Constitutional Appears: Non-toxic - Head Exam Head Exam: NORMAL INSPECTION - Eye Exam Eye Exam: Normal appearance Pupil Exam: NORMAL ACCOMODATION - ENT Exam ENT Exam: Mucous Membranes Moist - Neck Exam Neck Exam: Normal Inspection - Respiratory Exam Respiratory Exam: Decreased Breath Sounds, NORMAL BREATHING PATTERN - Cardiovascular Exam Cardiovascular Exam: REGULAR RHYTHM - GI/Abdominal Exam GI & Abdominal Exam: Soft - Rectal Exam Rectal Exam: NORMAL INSPECTION - Exam Exam: NORMAL INSPECTION - Extremities Exam Extremities Exam: Full ROM - Back Exam Back Exam: NORMAL INSPECTION - Neurological Exam Neurological Exam: Oriented x3 - Psychiatric Exam Psychiatric exam: Normal Mood - Skin Skin Exam: Normal Color Assessment and Plan - Assessment and Plan (Free Text) Assessment: S/P VOMITING esrf s/p dialysis pleural efusion improving after dialysis will do cxray Plan: as ordered
--- NOTE | 2018-03-10 11:55 | RAD ---
HISTORY: sob COMPARISON: Comparison made with chest radiograph 02/15/[address] scan abdomen pelvis 03/09/2018 which imaged both lung bases. TECHNIQUE: Chest PA and lateral FINDINGS: LUNGS: No active pulmonary disease. PLEURA: Again noted is right-sided effusion with minor right basilar atelectasis levels though less well seen on this exam as compared to high-resolution CT abdomen. CARDIOVASCULAR: Cardiomegaly. OSSEOUS STRUCTURES: Mild dextroscoliosis mid thoracic region. . VISUALIZED UPPER ABDOMEN: Normal. OTHER FINDINGS: None. IMPRESSION: Re- demonstrated is right-sided effusion with minor right basilar atelectasis levels though less well seen on this exam as compared to high-resolution CT abdomen.
--- NOTE | 2018-03-10 11:55 | CP.PCM.CON ---
History of Present Illness - History of Present Illness History of Present Illness: 67M hx of esrd, htn recent cholecystectomy 2 months ago, recent hospitalization for abd pain - presents w/ nasuea / vomiting and diarrhea per chart. Pt is a poor historian and currently denies those symptoms but c/o shortness of breath and abdominal pain w/ respiration. He was dialyzed yesterday 1.5L uf. denies any fevers / chills/cp/dizziness/headache/rash/dysuria PMH: HTN, ESRD on HD MWF, hypothyroidism, systolic HF last known EF 36%, Hypercholesterolemia PSH: Left AV Fistula, 01/27/18 chronic cholecystitis s/p laparoscopic cholecystectomy Social Hx: Patient admits to smoking, states he used to [facility] a [facility] of [facility] in [facility] but quit about 4-5 years ago, denies illicit drug use Family Hx: sister due to renal failure. his brothers are healthy and well. Review of Systems - Review of Systems All systems: reviewed and no additional remarkable complaints except (as per hpi ) Past Patient History - Infectious Disease Hx of Infectious Diseases: None - Past Medical History & Family History Past Medical History?: Yes - Past Social History Smoking Status: Never Smoked - CARDIAC Hx Cardiac Disorders: Yes Hx Atrial Fibrillation: No Hx Cardia Arrhythmia: No Hx Congestive Heart Failure: No Hx Hypercholesterolemia: No Hx Hypertension: Yes Hx Mitral Valve Prolapse: No Hx Pacemaker: No Hx Peripheral Edema: Yes (left arm and hand edema) - PULMONARY Hx Respiratory Disorders: No - NEUROLOGICAL Hx Neurological Disorder: No Hx Alzheimer's Disease: No Hx Dementia: No Hx Migraine: No Hx Multiple Sclerosis: No Hx Parkinson's Disease: No Hx Seizures: No Hx Transient Ischemic Attacks (TIA): No - HEENT Hx HEENT Problems: No - RENAL Hx Chronic Kidney Disease: Yes Hx Dialysis: Yes Type of Dialysis Access: left A/V fistula Date of Last Dialysis Treatment: 03/06/18 Hx Kidney Stones: No Other/Comment: CKD - ENDOCRINE/METABOLIC Hx Endocrine Disorders: Yes Hx Hyperthyroidism: No Hx Hypothyroidism: Yes - HEMATOLOGICAL/ONCOLOGICAL Hx Blood Disorders: No Hx Anemia: No Hx Human Immunodeficiency Virus (HIV): No Hx Sickle Cell Disease: No - INTEGUMENTARY Hx Dermatological Problems: No - MUSCULOSKELETAL/RHEUMATOLOGICAL Hx Musculoskeletal Disorders: Yes Hx Arthritis: Yes Hx Falls: No Hx Fractures: No Hx Osteoporosis: No Hx Rheumatoid Arthritis: No - GASTROINTESTINAL Hx Gastrointestinal Disorders: No Hx Crohn's Disease: No Hx Diverticulitis: No Hx Gall Bladder Disease: No Hx Gastritis: No - GENITOURINARY/GYNECOLOGICAL Hx Genitourinary Disorders: No Hx Sexually Transmitted Disorders: No - PSYCHIATRIC Hx Psychophysiologic Disorder: No Hx Anxiety: No Hx Bipolar Disorder: No Hx Depression: No Hx Paranoia: No Hx Post Traumatic Stress Disorder: No Hx Schizophrenia: No Hx Substance Use: No - SURGICAL HISTORY Hx Surgeries: Yes Hx Appendectomy: No Hx Carotid Endarterectomy: No Hx Cholecystectomy: Yes Hx Coronary Artery Bypass Graft: No Hx Coronary Stent: No Hx Tonsillectomy: No - ANESTHESIA Hx Anesthesia: Yes Hx Anesthesia Reactions: Yes Hx Malignant Hyperthermia: No Meds Allergies/Adverse Reactions: Allergies Allergy/AdvReac Type Severity Reaction Status Date / Time No Known Allergies Allergy Verified 02/15/18 05:28 - Medications Medications: Current Medications Aspirin (Ecotrin) 81 mg PO DAILY [facility] Last Admin: 03/10/18 09:25 Dose: 81 mg Calcium Acetate (Phoslo) 667 mg PO ACHS [facility] Last Admin: 03/10/18 11:11 Dose: 667 mg Carvedilol (Coreg) 25 mg PO BID [facility] Last Admin: 03/10/18 09:24 Dose: 25 mg Enalapril Maleate (Vasotec) 2.5 mg PO DAILY [facility] Last Admin: 03/10/18 09:25 Dose: 2.5 mg Famotidine (Pepcid) 20 mg PO DAILY [facility] Last Admin: 03/10/18 09:25 Dose: 20 mg Heparin Sodium (Porcine) (Heparin) 5,000 units SC Q12 [facility] Last Admin: 03/10/18 09:25 Dose: 5,000 units Levothyroxine Sodium (Synthroid) 125 mcg PO DAILY@0630 [facility] Ondansetron HCl (Zofran Inj) 4 mg IVP Q6H PRN PRN Reason: Nausea/Vomiting Tamsulosin HCl (Flomax) 0.4 mg PO DAILY [facility] Last Admin: 03/10/18 09:25 Dose: 0.4 mg Physical Exam - Constitutional Appears: Non-toxic, No Acute Distress, Chronically Ill - Head Exam Head Exam: NORMAL INSPECTION, NORMOCEPHALIC - Eye Exam Eye Exam: Normal appearance, PERRL - ENT Exam ENT Exam: Mucous Membranes Moist, Normal Exam - Neck Exam Neck exam: Positive for: Normal Inspection - Respiratory Exam Respiratory Exam: Decreased Breath Sounds (tachypneic) - Cardiovascular Exam Cardiovascular Exam: REGULAR RHYTHM, RRR - GI/Abdominal Exam GI & Abdominal Exam: Distended, Normal Bowel Sounds, Soft - Extremities Exam Extremities exam: Positive for: normal inspection Results - Vital Signs Recent Vital Signs: Last Vital Signs Temp 98 F 03/10/18 00:00 Pulse 77 03/10/18 00:00 Resp 20 03/10/18 00:00 BP 123/75 03/10/18 09:25 Pulse Ox 98 03/10/18 00:00 - Labs Result Diagrams: 03/09/18 12:45 03/09/18 12:45 Labs: Laboratory Results - last 24 hr 03/09/18 03/09/18 03/09/18 12:45 12:45 12:45 WBC 6.1 RBC 4.16 L Hgb 12.5 Hct 37.6 MCV 90.4 MCH 30.0 MCHC 33.2 RDW 16.8 H Plt Count 166 MPV 9.2 Neut % (Auto) 74.6 Lymph % (Auto) 15.6 L [place] % (Auto) 7.1 Eos % (Auto) 1.9 Baso % (Auto) 0.8 Neut # (Auto) 4.5 Lymph # (Auto) 0.9 L [place] # (Auto) 0.4 Eos # (Auto) 0.1 Baso # (Auto) 0.0 Sodium 135 Potassium 4.6 Chloride 93 L Carbon Dioxide 25 Anion Gap 22 H BUN 46 H Creatinine 8.1 H* D Est GFR ( Amer) 8 Est GFR (Non-Af Amer) 7 Random Glucose 116 H Calcium 10.0 Total Bilirubin 1.5 H AST 72 H D ALT 65 Alkaline Phosphatase 88 Total Protein 7.1 Albumin 4.3 Globulin 2.8 Albumin/Globulin Ratio 1.5 Lipase 117 Free T4 TSH 3rd Generation Urine Color Yellow Urine Clarity Clear Urine pH 8.0 Ur Specific [place] 1.008 Urine Protein 3+ H Urine Glucose (UA) 1+ H Urine Ketones Negative Urine Blood 1+ H Urine Nitrate Negative Urine Bilirubin Negative Urine Urobilinogen Normal Ur Leukocyte Esterase Neg Urine WBC (Auto) 4 Urine RBC (Auto) 5 H Ur Squamous Epith Cells < 1 Urine Bacteria Rare 03/09/18 03/09/18 16:49 17:12 WBC RBC Hgb Hct MCV MCH MCHC RDW Plt Count MPV Neut % (Auto) Lymph % (Auto) [place] % (Auto) Eos % (Auto) Baso % (Auto) Neut # (Auto) Lymph # (Auto) [place] # (Auto) Eos # (Auto) Baso # (Auto) Sodium Potassium Chloride Carbon Dioxide Anion Gap BUN Creatinine Est GFR ( Amer) Est GFR (Non-Af Amer) Random Glucose Calcium Total Bilirubin AST ALT Alkaline Phosphatase Total Protein Albumin Globulin Albumin/Globulin Ratio Lipase Free T4 2.61 H TSH 3rd Generation 5.79 H 4.87 H Urine Color Urine Clarity Urine pH Ur Specific [place] Urine Protein Urine Glucose (UA) Urine Ketones Urine Blood Urine Nitrate Urine Bilirubin Urine Urobilinogen Ur Leukocyte Esterase Urine WBC (Auto) Urine RBC (Auto) Ur Squamous Epith Cells Urine Bacteria Assessment & Plan (1) ESRD (end stage renal disease) Status: Acute (2) Abdominal discomfort Status: Acute (3) Abdominal pain Status: Acute (4) Anemia Status: Chronic (5) Hypertension Status: Chronic - Assessment and Plan (Free Text) Assessment: short hd today for uf hd mwf no chong bp acceptable
[2018-03-10 15:43] VITALS: TEMP 97.3
[2018-03-10 16:20] VITALS: RESP 20
[2018-03-10 16:36] VITALS: PULSE 73; O2SAT 100
[2018-03-10 16:41] VITALS: BP 120/66
--- NOTE | 2018-03-10 17:09 | CP.PCM.PN ---
Subjective - Date & Time of Evaluation Date of Evaluation: 03/10/18 Time of Evaluation: 17:09 - Subjective Subjective: alert, awake, no sob now, no chest pains. Objective - Vital Signs/Intake and Output Vital Signs (last 24 hours): Temp Pulse Resp BP Pulse Ox 97.3 F L 73 20 120/66 100 03/10/18 15:40 03/10/18 15:40 03/10/18 15:40 03/10/18 15:40 03/10/18 15:40 Intake and Output: 03/10/18 03/10/18 06:59 18:59 Intake Total 320 300 Balance 320 300 - Medications Medications: Current Medications Aspirin (Ecotrin) 81 mg PO DAILY [facility] Last Admin: 03/10/18 09:25 Dose: 81 mg Calcium Acetate (Phoslo) 667 mg PO ACHS [facility] Last Admin: 03/10/18 11:11 Dose: 667 mg Carvedilol (Coreg) 25 mg PO BID [facility] Last Admin: 03/10/18 09:24 Dose: 25 mg Enalapril Maleate (Vasotec) 2.5 mg PO DAILY [facility] Last Admin: 03/10/18 09:25 Dose: 2.5 mg Famotidine (Pepcid) 20 mg PO DAILY [facility] Last Admin: 03/10/18 09:25 Dose: 20 mg Heparin Sodium (Porcine) (Heparin) 5,000 units SC Q12 [facility] Last Admin: 03/10/18 09:25 Dose: 5,000 units Levothyroxine Sodium (Synthroid) 125 mcg PO DAILY@0630 [facility] Ondansetron HCl (Zofran Inj) 4 mg IVP Q6H PRN PRN Reason: Nausea/Vomiting Tamsulosin HCl (Flomax) 0.4 mg PO DAILY [facility] Last Admin: 03/10/18 09:25 Dose: 0.4 mg - Labs Labs: 03/09/18 12:45 03/09/18 12:45 Assessment and Plan - Assessment and Plan (Free Text) Assessment: Patient admitted with sob, fluid overload, seen and examined. Had extra dialysis today. Alert and oriented x3, NAD. Discussed with DR Shields, plan to discharge home today. Will continue with HD, Friday, Friday and Fridays. Patient verbalized understanding. Advised to follow up with PMD in 1 week.
== END 2018-03-10 17:52 | disposition home or self-care (01) | DRG 291 ==
LOC: C.ER 10:50 → C.9E 15:30 → C.3T 19:22
PROVIDERS: ADMIT Internal Medicine; ATTEND Internal Medicine
PROC: 5A1D70Z Performance of Urinary Filtration, Intermittent, Less than 6 Hours Per Day (ICD-10-PCS; principal; 2018-03-09)
DX: I13.2 Hypertensive heart and chronic kidney disease with heart failure and with stage 5 chronic kidney disease, or end stage renal disease (principal); N18.6 End stage renal disease; I50.22 Chronic systolic (congestive) heart failure; R18.8 Other ascites; K52.9 Noninfective gastroenteritis and colitis, unspecified; N28.1 Cyst of kidney, acquired; Z99.2 Dependence on renal dialysis; E03.9 Hypothyroidism, unspecified; E78.00 Pure hypercholesterolemia, unspecified; F17.200 Nicotine dependence, unspecified, uncomplicated

== ENCOUNTER 2018-04-26 10:39 | Emergency (ER) | payer OTHER, SELFPAY ==
[2018-04-26] MEDS ORDERED: Sodium Chloride 0.9% 1,000 ML IV ONE (11:09)
[2018-04-26] MEDS ORDERED: Sodium Chloride 0.9% 1,000 ML ONE (11:18)
[2018-04-26 11:45] LABS: BASO % 1.1 % (0.0-2.0); EOS # 0.2 K/uL (0.0-0.7); EOS % 3.6 % (0.0-4.0); HEMOGLOBIN 14.4 g/dL (12.0-18.0); LYMPH # 1.2 K/uL (1.0-4.3); LYMPH % 28.7 % (20.0-40.0); MEAN CELL VOLUME 91.4 fL (80.0-94.0); MEAN CORPUSCULAR HGB CONC 32.9 g/dL (33.0-37.0); MONO # 0.3 K/uL (0.0-0.8); MONO % 7.2 % (0.0-10.0); NEUT # 2.5 K/uL (1.8-7.0); NEUT % 59.4 % (50.0-75.0); RBC 4.78 Mil/uL (4.40-5.90); RED CELL DISTRIBUTION WIDTH 18.1 % (11.5-14.5); WHITE BLOOD COUNT 4.2 K/uL (4.8-10.8)
[2018-04-26 11:52] LABS: URINE BILIRUBIN NEGATIVE (NEGATIVE); URINE BLOOD NEGATIVE (NEGATIVE); URINE CLARITY Clear (Clear); URINE COLOR Yellow (YELLOW); URINE GLUCOSE (UA) 1+ mg/dL (Normal); URINE LEUKOCYTE ESTERASE NEG Leu/uL (Negative); URINE PROTEIN 3+ mg/dL (NEGATIVE); URINE UROBILINOGEN NORMAL mg/dL (0.2-1.0)
[2018-04-26 11:57] LABS: ALB/GLOB RATIO 1.5 (1.0-2.1); ALBUMIN 4.2 g/dL (3.5-5.0); CALCIUM 9.9 mg/dl (8.6-10.4)
--- NOTE | 2018-04-26 12:24 | C.PDOC ---
History Of Present Illness 68 year old male presents to ED for evaluation of intermittent mid abdominal pain for the last 3 months after his cholecystectomy. Notes that pain begins at the epigastric region and radiates down to lower abdomen, worse in the periumbilical area. He reports being constipated for the last 3 days. Also notes difficulty urinating. Otherwise, denies nausea, vomiting, fever, or chills. Time Seen by Provider: 04/26/18 11:02 Chief Complaint (Nursing): Male Genitourinary History Per: Patient History/Exam Limitations: no limitations Onset/Duration Of Symptoms: Days Current Symptoms Are (Timing): Still Present Quality Of Discomfort: "Pain" Associated Symptoms: Constipation, Urinary Symptoms. denies: Nausea, Vomiting, Diarrhea, Loss Of Appetite, Back Pain, Chest Pain Alleviating Factors: None Recent travel outside of the [place]: No Additional History Per: Patient Past Medical History Reviewed: Historical Data, Nursing Documentation, Vital Signs Vital Signs: Last Vital Signs Temp 98.0 F 04/26/18 14:55 Pulse 88 04/26/18 14:55 Resp 18 04/26/18 14:55 BP 152/86 H 04/26/18 14:55 Pulse Ox 98 04/26/18 15:18 - Medical History PMH: Arthritis, HTN, Hypothyroidism, Peripheral Edema (left arm and hand edema) , End Stage Renal Disease, Chronic Kidney Disease Surgical History: Cholecystectomy - [facility] Procedures (03/09/18) ARTHROCENTESIS (06/24/14) DIALYSIS ARTERIOVENOSTOM (06/24/14) HEMODIALYSIS (06/24/14) RESECTION OF GALLBLADDER, PERCUTANEOUS ENDOSCOPIC APPROACH (01/26/18) VENOUS CATHETERIZATION FOR RENAL DIALYSIS (06/24/14) Family History: States: Unknown Family Hx - Social History Hx Tobacco Use: No Hx Alcohol Use: No Hx Substance Use: No - Immunization History Hx Tetanus Toxoid Vaccination: No Hx Influenza Vaccination: No Hx Pneumococcal Vaccination: No Review Of Systems Constitutional: Negative for: Fever, Chills Cardiovascular: Negative for: Chest Pain Respiratory: Negative for: Shortness of Breath Gastrointestinal: Positive for: Abdominal Pain, Constipation. Negative for: Nausea, Vomiting, Diarrhea Genitourinary: Negative for: Frequency, Hematuria Musculoskeletal: Negative for: Back Pain Skin: Negative for: Rash Neurological: Negative for: Headache, Dizziness Physical Exam - Physical Exam Appears: Non-toxic, No Acute Distress Skin: Normal Color, Warm, Dry Head: Atraumatic, Normacephalic Eye(s): bilateral: Normal Inspection, EOMI Oral Mucosa: Moist Neck: Normal ROM, Supple Cardiovascular: Rhythm Regular (tachycardic) Respiratory: Normal Breath Sounds, No Rales, No Rhonchi, No Wheezing Gastrointestinal/Abdominal: Bowel Sounds, Soft, Tenderness (periumbilical), No Mass, Distention, No Guarding, No Rebound, No Hernia Back: No CVA Tenderness Male Genital: Normal Inspection, No Testicular Tenderness, No Testicular Swelling, No Inguinal Tenderness, No Inguinal Swelling Extremity: Normal ROM, No Deformity, Other ((+)fistula to left arm) Neurological/Psych: Oriented x3, Normal Speech ED Course And Treatment - Laboratory Results Result Diagrams: 04/26/18 11:40 04/26/18 11:40 Lab Interpretation: Abnormal O2 Sat by Pulse Oximetry: 98 (RA) Pulse Ox Interpretation: Normal - CT Scan/US Abd & Pelvis CT Other Rad Studies (CT/US): Read By Radiologist, Radiology Report Reviewed CT/US Interpretation: Date of service: 04/26/2018. PROCEDURE: CT Abdomen and Pelvis with contrast. HISTORY: periumbilical abd pain. COMPARISON: Abdomen pelvis CT without contrast 03/09/2018. TECHNIQUE: Following the intravenous administration of iodinated contrast material, a CT examination of the abdomen and pelvis performed from the domes of the diaphragms to the symphysis pubis with reformatted datasets provided in axial, sagittal and coronal planes. Oral contrast was not administered as per referring physician request. Contrast dose : Visipaque 320, 100 cc. Radiation dose: Total exam DLP = 430.61 mGy-cm. This CT exam was performed using one or more of the following dose reduction techniques: Automated exposure control, adjustment of the mA and/or kV according to patient size, and/or use of iterative reconstruction technique. FINDINGS: LOWER THORAX: There is a moderate right pleural effusion with minimal left pleural effusion present. Mild cardiomegaly. No pericardial effusion. LIVER: Diffusely diminished hepatic attenuation suggests diffuse fatty infiltration without focal mass evident grossly. GALLBLADDER AND BILE DUCTS: Cholecystectomy reiterated. PANCREAS: Unremarkable. No gross lesion or ductal dilatation. SPLEEN: Small granuloma is again seen the lateral superior pancreas. ADRENALS: Unremarkable. No mass. KIDNEYS AND URETERS: Gross bilateral renal atrophy is reiterated with bilateral renal cysts noted there prominent bilateral parapelvic cysts remaining greater the left and right sides. VASCULATURE: Unremarkable. No aortic aneurysm. BOWEL: Unremarkable. No obstruction. No gross mural thickening. APPENDIX: None identified. PERITONEUM: Palh-iq-tlwfolkf abdominal ascites is identified also involving the pelvis. LYMPH NODES: Unremarkable. No enlarged lymph nodes. BLADDER: Completely decompressed. REPRODUCTIVE: Enlarged reiterated. BONES: No acute fracture. OTHER FINDINGS: None. IMPRESSION: 1. Oide-rk-zeddlimd abdominal pelvic ascites of uncertain origin. 2. Stable markedly atrophic bilateral kidneys reiterated with prominent parapelvic cysts reiterated bilaterally but left greater than right. 3. Hepatic steatosis. 4. Prior cholecystectomy. 5. Other lesser abdominal findings as per above. 6. Moderate right, minimal left pleural effusions. Cardiomegaly. No pericardial effusion. Medical Decision Making Medical Decision Making: Impression: 68 year old male with abdominal pain distension and constipation. Plan: * Blood work * Urinalysis * Abd & Pelvis CT * IV fluids Progress: Labs reviewed with abnormal findings from chronic disease, ESRD on HD. CT of abdomen shows tgqi-rt-tlkacikp abdominal pelvic ascites of uncertain origin. Hepatic steatosis. Prior cholecystectomy. See full report On re-evaluation, the patient was resting comfortably on stretcher in no acute distress. I explained his findings and the plan for obs-admission for further evaluation into abdominal ascites and GI consult and possible paracentesis. The patient declines admission, and wishes to go home and follow up with his own physician. This action is against my medical advice to the patient and the decision was made with informed refusal. The patient was told that the ascites will likely continue and not resolve and will need further intervention. The patient states he is due for dialysis tomorrow and has other things to take care of. The risks of leaving were explained to the patient and include, but are not limited to, worsening ascites, pain SOB, CHF, respiratory failure. The patient has the capacity to make this informed decision and understands the clinical situation and my explanation of the risks of leaving. The patient voluntarily accepts these risks, and a signed AMA form documenting our conversation was obtained. Patient was given copy of lab and CT reports. Patient was stable upon discharge. Disposition Counseled Patient/Family Regarding: Studies Performed, Diagnosis, Need For Followup - Disposition Referrals: Johan Lim [Medical Doctor] - Disposition: AGAINST MEDICAL ADVICE Disposition Time: 14:34 Condition: STABLE Additional Instructions: [facility] Instructions: Fluid in the Belly (Ascites) (DC) Forms: Lockbox (Jamaican) Print Language: MACANESE - POA Present On Arrival: None - Clinical Impression Clinical Impression: Ascites, ESRD (end stage renal disease) on dialysis, Abdominal pain - PA / MORNING SHOW HOST / Resident Statement MD/DO has reviewed & agrees with the documentation as recorded. - Scribe Statement The provider has reviewed the documentation as recorded by the Scribe KP All medical record entries made by the Scribe were at my direction and personally dictated by me. I have reviewed the chart and agree that the record accurately reflects my personal performance of the history, physical exam, medical decision making, and the department course for this patient. I have also personally directed, reviewed, and agree with the discharge instructions and disposition.
[2018-04-26 12:42] VITALS: RESP 18
[2018-04-26] MEDS ORDERED: Iodixanol 320 MG/ML 100 ML BOTTLE IV ONE (13:40)
--- NOTE | 2018-04-26 14:11 | CT ---
Date of service: 04/26/2018 PROCEDURE: CT Abdomen and Pelvis with contrast HISTORY: periumbilical abd pain COMPARISON: Abdomen pelvis CT without contrast 03/09/2018. TECHNIQUE: Following the intravenous administration of iodinated contrast material, a CT examination of the abdomen and pelvis performed from the domes of the diaphragms to the symphysis pubis with reformatted datasets provided in axial, sagittal and coronal planes. Oral contrast was not administered as per referring physician request. Contrast dose: Visipaque 320, 100 cc Radiation dose: Total exam DLP = 430.61 mGy-cm. This CT exam was performed using one or more of the following dose reduction techniques: Automated exposure control, adjustment of the mA and/or kV according to patient size, and/or use of iterative reconstruction technique. FINDINGS: LOWER THORAX: There is a moderate right pleural effusion with minimal left pleural effusion present. Mild cardiomegaly. No pericardial effusion. LIVER: Diffusely diminished hepatic attenuation suggests diffuse fatty infiltration without focal mass evident grossly. GALLBLADDER AND BILE DUCTS: Cholecystectomy reiterated. PANCREAS: Unremarkable. No gross lesion or ductal dilatation. SPLEEN: Small granuloma is again seen the lateral superior pancreas. ADRENALS: Unremarkable. No mass. KIDNEYS AND URETERS: Gross bilateral renal atrophy is reiterated with bilateral renal cysts noted there prominent bilateral parapelvic cysts remaining greater the left and right sides. VASCULATURE: Unremarkable. No aortic aneurysm. BOWEL: Unremarkable. No obstruction. No gross mural thickening. APPENDIX: None identified. PERITONEUM: Yqxu-kw-mdgicdsd abdominal ascites is identified also involving the pelvis. LYMPH NODES: Unremarkable. No enlarged lymph nodes. BLADDER: Completely decompressed. REPRODUCTIVE: Enlarged reiterated. BONES: No acute fracture. OTHER FINDINGS: None. IMPRESSION: 1. Tnyj-ox-imgkfcoq abdominal pelvic ascites of uncertain origin. 2. Stable markedly atrophic bilateral kidneys reiterated with prominent parapelvic cysts reiterated bilaterally but left greater than right. 3. Hepatic steatosis. 4. Prior cholecystectomy. 5. Other lesser abdominal findings as per above. 6. Moderate right, minimal left pleural effusions. Cardiomegaly. No pericardial effusion.
[2018-04-26 14:55] VITALS: BP 152/86; PULSE 88; TEMP 98
[2018-04-26 15:18] VITALS: O2SAT 98
== END 2018-04-26 14:56 | disposition left against medical advice (07) ==
LOC: C.ER 10:39
DX: R18.8 Other ascites (principal); R10.9 Unspecified abdominal pain; I12.0 Hypertensive chronic kidney disease with stage 5 chronic kidney disease or end stage renal disease; N18.6 End stage renal disease; Z99.2 Dependence on renal dialysis; Z90.49 Acquired absence of other specified parts of digestive tract
CPT/HCPCS: 74177; 80053; 81001; 83690; 85025; 87086; 96360; 99285; J7030; Q9967

== ENCOUNTER 2018-05-27 13:32 | Inpatient (IN) | payer OTHER ==
--- NOTE | 2018-05-27 15:44 | C.PDOC ---
History Of Present Illness Patient presents to ED c/o right lower leg pain, redness and swelling for approx 1 month. Patient just returned from [facility] at 2:30am last night - states he noticed his right leg swelling when he arrived there approx 1 month ago. He admits to SOB, but denies fever, chest pain, cough, abdominal pain, nausea/vomiting, diarrhea. PMHx of ESRD on HD (, , ), last dialysis was May 21 in [facility]. 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 Time Seen by Provider: 05/27/18 15:16 Chief Complaint (Nursing): Lower Extremity Problem/Injury History Per: Patient History/Exam Limitations: no limitations Onset/Duration Of Symptoms: Persistent (1 month ) Current Symptoms Are (Timing): Still Present Severity: Moderate Past Medical History Reviewed: Historical Data, Nursing Documentation, Vital Signs Vital Signs: Last Vital Signs Temp 97.5 F L 05/30/18 16:45 Pulse 72 05/30/18 16:45 Resp 18 05/30/18 16:45 BP 140/76 05/30/18 16:45 Pulse Ox 100 05/30/18 16:45 - Medical History PMH: Arthritis, HTN, Hypothyroidism, Peripheral Edema (left arm and hand edema) , End Stage Renal Disease, Chronic Kidney Disease Surgical History: Cholecystectomy - [facility] Procedures (03/09/18) ARTHROCENTESIS (06/24/14) DIALYSIS ARTERIOVENOSTOM (06/24/14) HEMODIALYSIS (06/24/14) RESECTION OF GALLBLADDER, PERCUTANEOUS ENDOSCOPIC APPROACH (01/26/18) VENOUS CATHETERIZATION FOR RENAL DIALYSIS (06/24/14) Family History: States: No Known Family Hx - Social History Hx Tobacco Use: No Hx Alcohol Use: No Hx Substance Use: No - Immunization History Hx Tetanus Toxoid Vaccination: No Hx Influenza Vaccination: No Hx Pneumococcal Vaccination: No Review Of Systems Constitutional: Negative for: Fever, Chills Cardiovascular: Negative for: Chest Pain, Palpitations Respiratory: Positive for: Shortness of Breath, SOB with Excertion. Negative for: Cough Gastrointestinal: Negative for: Nausea, Vomiting, Abdominal Pain, Diarrhea Musculoskeletal: Positive for: Leg Pain (right leg pain, redness, swelling ) Neurological: Negative for: Weakness, Numbness, Headache, Dizziness Physical Exam - Physical Exam Appears: Well, Non-toxic, No Acute Distress Skin: Other (see extremity exam) Head: Normacephalic Eye(s): bilateral: Normal Inspection Oral Mucosa: Moist Chest: Symmetrical Cardiovascular: Rhythm Regular Respiratory: No Accessory Muscle Use, Rales (B/L bases), No Rhonchi, No Wheezing Gastrointestinal/Abdominal: Normal Exam, Bowel Sounds, Soft, No Tenderness, Other (obese) Extremity: Pedal Edema (right lower leg redness, +2 pitting edema, (+) TTP ), Calf Tenderness (right lower leg ), Capillary Refill (< 2 sec all digits ), No Deformity, Other (LUE AV fistula with palpable thrill ) Pulses: Left Dorsalis Pedis: Normal, Right Dorsalis Pedis: Normal Neurological/Psych: Oriented x3 ED Course And Treatment - Laboratory Results Result Diagrams: 05/30/18 07:38 05/30/18 07:38 ECG: Interpreted By Me, Viewed By Me (NSR 81 bpm, normal axis, no acute ST/T wave changes) ECG Interpretation: Normal O2 Sat by Pulse Oximetry: 98 (RA) Pulse Ox Interpretation: Normal - CT Scan/US venous doppler Other Rad Studies (CT/US): Read By Radiologist, Radiology Report Reviewed CT/US Interpretation: neg for acute DVT Progress Note: Blood work, venous doppler, CXR, EKG ordered and reviewed. Patient given IV Vancomycin and Cefepime foir cellulitis. Dr. Banks's group contacted and aware of patient admission, need for dialysis. Reassessment Condition: Improved - Physician Consult Information Physician Contacted: Donell Lauren Jr. Outcome Of Conversation: Discussed patient with Dr. Lauren, agrees with admission for right leg swelling/erythema (cellulitis), fluid overload, esrd on HD. Resident tanesha aware. Disposition - Disposition Disposition: HOSPITALIZED Disposition Time: 17:32 Condition: STABLE - Clinical Impression Clinical Impression: Right leg swelling, ESRD (end stage renal disease) on dialysis, Cellulitis, Fluid overload Decision To Admit - Pt Status Changed To: Hospital Disposition Of: Inpatient - Admit Certification Admit to Inpatient:: After my assessment, the patient will require hospitalization for at least two midnights. This is because of the severity of symptoms shown, intensity of services needed, and/or the medical risk in this patient being treated as an outpatient. - InPatient: Physician Admission Certification: I certify that this patient requires 2 or more midnights of care for the following reason:: see notes - . Bed Request Type: Telemetry Admitting Physician: Donell Lauren Jr. Patient Diagnosis: Cellulitis, ESRD (end stage renal disease) on dialysis, Fluid overload, Right leg swelling
[2018-05-27 15:56] LABS: BASO # 0.1 K/uL (0.0-0.2); BASO % 0.9 % (0.0-2.0); EOS # 0.2 K/uL (0.0-0.7); EOS % 2.6 % (0.0-4.0); HEMOGLOBIN 12.8 g/dL (12.0-18.0); LYMPH # 0.8 K/uL (1.0-4.3); LYMPH % 13.4 % (20.0-40.0); MEAN CELL VOLUME 91.9 fL (80.0-94.0); MEAN CORPUSCULAR HEMOGLOBIN 30.7 pg (27.0-31.0); MEAN CORPUSCULAR HGB CONC 33.5 g/dL (33.0-37.0); MEAN PLATELET VOLUME 9.1 fL (7.2-11.7); MONO # 0.4 K/uL (0.0-0.8); MONO % 6.3 % (0.0-10.0); NEUT # 4.7 K/uL (1.8-7.0); NEUT % 76.8 % (50.0-75.0); NRBC % 0.1 % (0.0-2.0); RBC 4.17 Mil/uL (4.40-5.90); RED CELL DISTRIBUTION WIDTH 18.2 % (11.5-14.5); WHITE BLOOD COUNT 6.1 K/uL (4.8-10.8)
[2018-05-27 16:08] LABS: INR 1.1; PROTHROMBIN TIME 12.2 SECONDS (9.7-12.2)
[2018-05-27 16:17] LABS: ALB/GLOB RATIO 1.4 (1.0-2.1); ALBUMIN 4.2 g/dL (3.5-5.0); CALCIUM 8.5 mg/dl (8.6-10.4)
[2018-05-27 16:22] LABS: CK-MB 2.22 ng/mL (0.0-3.38); TROPONIN I 0.047 ng/mL (0.00-0.120)
[2018-05-27] MEDS ORDERED: Vancomycin 1 GM 1 GM/250 ML BAG IV STA (17:12)
[2018-05-27] MEDS ORDERED: Cefepime 1 GM in Sodium Chloride 0.9% 50 ML IVPB STA (17:13)
[2018-05-27] MEDS ORDERED: Vancomycin 1 gm/NS 200 ml 1 GM/200 ML BAG IVPB ONE (19:00)
[2018-05-27] MEDS ORDERED: Cefepime IV 1 gm in Dextrose 1 GM/50 ML BAG IVPB ONE (20:30)
--- NOTE | 2018-05-27 22:21 | CP.PCM.HP ---
History of Present Illness - History of Present Illness History of Present Illness: PGY2 Medicine H+P for Dr. Lauren Patient is a 68 year old male with a past medical history of Arthritis , HTN, hypothyroidism, ESRD on HD and systolic CHF presents to the ED complaining of right lower extremity pain, redness, and swelling. Patient explains he has been in [facility] for the past month during which time the swelling began. At the onset of symptoms, he comments that he experienced itchiness, pain, and erythema in his right lower extremity below the knee. While in [facility] the patient made note of using warm water and salt in an attempt to reduce the swelling, but that it only caused an increased burning sensation in his extremity. Patient returned from [facility] today at 2:30AM, after which he presented to the emergency room. Currently, the patient makes note that the pain in his right lower extremity has diminished but is still there. He admits to shortness of breath but has no other complaints. Denies fevers, chills, nausea, vomiting, diarrhea, constipation, chest pain, abdominal pain, numbness or tingling. 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 his brothers are healthy and well. Social: Patient admits to smoking, states he used to drink a lot of ETOH in [facility] but quit about 4-5 years ago, denies illicit drug use Allergies: NKDA Present on Admission - Present on Admission Any Indicators Present on Admission: No Review of Systems - Review of Systems All systems: reviewed and no additional remarkable complaints except - Constitutional Constitutional: As Per HPI - EENT Eyes: As Per HPI Nose/Mouth/Throat: As Per HPI - Cardiovascular Cardiovascular: As Per HPI - Respiratory Respiratory: As Per HPI - Gastrointestinal Gastrointestinal: As Per HPI - Genitourinary Genitourinary: As Per HPI - Musculoskeletal Musculoskeletal: As Per HPI - Integumentary Integumentary: As Per HPI - Neurological Neurological: As Per HPI - Psychiatric Psychiatric: As Per HPI - Endocrine Endocrine: As Per HPI - Hematologic/Lymphatic Hematologic: As Per HPI Past Patient History - Infectious Disease Hx of Infectious Diseases: None - Past Medical History & Family History Past Medical History?: Yes - Past Social History Smoking Status: Never Smoked - CARDIAC Hx Cardiac Disorders: Yes Hx Hypertension: Yes Hx Peripheral Edema: Yes (left arm and hand edema) - PULMONARY Hx Respiratory Disorders: No - NEUROLOGICAL Hx Dementia: No Hx Migraine: No Hx Multiple Sclerosis: No Hx Parkinson's Disease: No Hx Seizures: No Hx Transient Ischemic Attacks (TIA): No - HEENT Hx HEENT Problems: No - RENAL Hx Chronic Kidney Disease: Yes Date of Last Dialysis Treatment: 05/21/18 - ENDOCRINE/METABOLIC Hx Hypothyroidism: Yes - HEMATOLOGICAL/ONCOLOGICAL Hx Sickle Cell Disease: No - INTEGUMENTARY Hx Dermatological Problems: No - MUSCULOSKELETAL/RHEUMATOLOGICAL Hx Musculoskeletal Disorders: Yes Hx Arthritis: Yes Hx Falls: No - GASTROINTESTINAL Hx Gastrointestinal Disorders: No - GENITOURINARY/GYNECOLOGICAL Hx Genitourinary Disorders: No Hx Sexually Transmitted Disorders: No - PSYCHIATRIC Hx Psychophysiologic Disorder: No Hx Substance Use: No - SURGICAL HISTORY Hx Surgeries: Yes Hx Cholecystectomy: Yes - ANESTHESIA Hx Anesthesia: Yes Hx Anesthesia Reactions: Yes Hx Malignant Hyperthermia: No Meds Allergies/Adverse Reactions: Allergies Allergy/AdvReac Type Severity Reaction Status Date / Time No Known Allergies Allergy Verified 05/27/18 13:58 Physical Exam - Constitutional Appears: Non-toxic, No Acute Distress - Head Exam Head Exam: ATRAUMATIC, NORMOCEPHALIC - Eye Exam Eye Exam: EOMI, Normal appearance. absent: Scleral icterus - ENT Exam ENT Exam: Mucous Membranes Moist - Neck Exam Neck exam: Positive for: Full Rom. Negative for: Lymphadenopathy - Respiratory Exam Respiratory Exam: Rales (bases b/l), NORMAL BREATHING PATTERN. absent: Accessory Muscle Use, Clear to Auscultation Bilateral, Rhonchi, Wheezes, Respiratory Distress - Cardiovascular Exam Cardiovascular Exam: REGULAR RHYTHM, +S1 - GI/Abdominal Exam GI & Abdominal Exam: Soft. absent: Distended, Firm, Guarding, Rigid Additional comments: obese - Extremities Exam Extremities exam: Positive for: pedal edema (2+ pitting b/l), tenderness (right leg), pedal pulses present. Negative for: normal inspection (erythema of right leg - boarder outlined ) Additional comments: LUE - AV fistula - Neurological Exam Neurological exam: Alert, Oriented x3 - Psychiatric Exam Psychiatric exam: Normal Affect, Normal Mood - Skin Skin Exam: Dry, Warm Additional comments: see extremity exam Results - Vital Signs Recent Vital Signs: Last Vital Signs Temp 97.8 F 05/27/18 20:00 Pulse 85 05/27/18 20:00 Resp 20 05/27/18 20:00 BP 159/88 H 05/27/18 20:00 Pulse Ox 99 05/27/18 20:00 - Labs Result Diagrams: 05/27/18 15:52 05/27/18 15:52 Labs: Laboratory Results - last 24 hr 05/27/18 05/27/18 05/27/18 15:52 15:52 15:52 WBC 6.1 RBC 4.17 L Hgb 12.8 Hct 38.3 MCV 91.9 MCH 30.7 MCHC 33.5 RDW 18.2 H Plt Count 203 MPV 9.1 Neut % (Auto) 76.8 H Lymph % (Auto) 13.4 L [place] % (Auto) 6.3 Eos % (Auto) 2.6 Baso % (Auto) 0.9 Neut # (Auto) 4.7 Lymph # (Auto) 0.8 L [place] # (Auto) 0.4 Eos # (Auto) 0.2 Baso # (Auto) 0.1 PT 12.2 INR 1.1 APTT 24 Sodium 135 Potassium 5.5 H Chloride 96 L Carbon Dioxide 20 L Anion Gap 25 H BUN 76 H Creatinine 9.3 H* D Est GFR ( Amer) 7 Est GFR (Non-Af Amer) 6 Random Glucose 90 Calcium 8.5 L Total Bilirubin 1.4 H AST 15 L D ALT 26 Alkaline Phosphatase 152 H D Total Creatine Kinase 112 CK-MB (Mass) 2.22 Troponin I 0.0470 NT-Pro-B Natriuret Pep 303914 H Total Protein 7.1 Albumin 4.2 Globulin 3.0 Albumin/Globulin Ratio 1.4 Assessment & Plan - Assessment and Plan (Free Text) Plan: Right Lower Extremity Cellulitis RLE duplex - no DVT afebrile no leukocytosis proximal boarder outlined - continue to monitor blood cultures pending Medications * Cefepime 1gm IVPB q24h (started on 05/27) - renal dosing * given 1 dose of Vanco in ED ESRD on HD MWF Nephro consulted, Dr. Banks Patient appears fluid overloaded on PE continue home medications * Calcium Acetate 667mg PO ACHS (home med) hx of Systolic CHF ECHO 02/15/18: LVEF 25-30%, systolic function severely impaired. Moderate Pulm HTN and Tricuspid regurg continue home medications * Aspirin 81mg PO daily * Carvedilol 6.25mg PO BID * Enalapril Maleate 2.5mg PO daily Hypothyroidism continue home medication * Synthroid 125mcg PO daily Anemia of Chronic Disease stable continue to monitor Hx of Urinary Retention continue home medication * Flomax 0.4mg PO daily History of heavy alcohol use patient quit 4-5 years ago-> heavy use, does not smell like alcohol on exam Abdominal US (02/15/18): stable limited abdomen ultraounds status post prior cholecystectomy. Normal CBD caliber. No prominent intrahepatic biliary dilatation. partial imaging of the pancreas and marked right renal atrophy again evident Prophylactic Care Pepcid 20mg PO daily Case discussed with Dr. Leonidas Cole Mei PGY2
[2018-05-28] MEDS: Levothyroxine 125 MCG TAB PO SCH (05:46)
--- NOTE | 2018-05-28 09:34 | CP.PCM.PN ---
<Deo Thompson M - Last Filed: 05/28/18 23:57> Subjective - Date & Time of Evaluation Date of Evaluation: 05/28/18 Time of Evaluation: 09:25 - Subjective Subjective: PGY 1 Medicine Progress Note for Dr. Lauern Patient seen and examined at bedside. Patient lying in bed no acute distress. Patient states he has R left erythema since his return to [facility]. Otherwise , he states he feels fine and denies chest pain, SOB, constipation, trouble voiding. Patient states he last dialysis was last , May 21 in [facility]. Patient states he used to get dialysis at a dialysis center in [place], on [address], on ,W, schedule Objective - Vital Signs/Intake and Output Vital Signs (last 24 hours): Temp Pulse Resp BP Pulse Ox 97.9 F 78 20 150/80 98 05/28/18 07:58 05/28/18 07:58 05/28/18 07:58 05/28/18 07:58 05/28/18 07:58 - Medications Medications: Current Medications Aspirin (Ecotrin) 81 mg PO DAILY [facility] Calcium Acetate (Phoslo) 667 mg PO ACHS [facility] Last Admin: 05/28/18 07:45 Dose: 667 mg Carvedilol (Coreg) 6.25 mg PO BID [facility] Enalapril Maleate (Vasotec) 2.5 mg PO DAILY [facility] Famotidine (Pepcid) 20 mg PO DAILY [facility] Cefepime HCl (Maxipime Iv 1 Gm Premix) 1 gm in 50 mls @ 100 mls/hr IVPB Q24H [facility] PRN Reason: Protocol Levothyroxine Sodium (Synthroid) 125 mcg PO DAILY@0630 [facility] Last Admin: 05/28/18 05:46 Dose: 125 mcg Tamsulosin HCl (Flomax) 0.4 mg PO DAILY [facility] - Labs Labs: 05/27/18 15:52 05/27/18 15:52 PT 12.2 SECONDS (9.7-12.2) 05/27/18 15:52 INR 1.1 05/27/18 15:52 APTT 24 SECONDS (21-34) 05/27/18 15:52 - Constitutional Appears: Well, Non-toxic, No Acute Distress - Head Exam Head Exam: ATRAUMATIC, NORMAL INSPECTION, NORMOCEPHALIC - Eye Exam Eye Exam: EOMI, Normal appearance - ENT Exam ENT Exam: Mucous Membranes Moist - Respiratory Exam Respiratory Exam: Clear to Ausculation Bilateral, Rales, NORMAL BREATHING PATTERN. absent: Rhonchi, Wheezes - Cardiovascular Exam Cardiovascular Exam: +S1, +S2. absent: Irregular Rhythm, Murmur - GI/Abdominal Exam GI & Abdominal Exam: Soft, Normal Bowel Sounds. absent: Firm, Guarding, Rigid - Extremities Exam Extremities Exam: Full ROM, Normal Inspection. absent: Pedal Edema Additional comments: L upper arm AV fistula R LE Erythema improved margins, marked No warmth on palpation - Neurological Exam Neurological Exam: Alert, Awake, Oriented x3 - Psychiatric Exam Psychiatric exam: Normal Affect, Normal Mood - Skin Skin Exam: Dry, Intact, Normal Color, Warm Assessment and Plan - Assessment and Plan (Free Text) Assessment: 68 yr male w/ PMHx Arthritis, HTN, hypothyroidism, ESRD on HD and systolic CHF , comes to ED for swelling/erythema of his R LE Right Lower Extremity Cellulites - RLE duplex - no DVT - afebrile, no leukocytosis - proximal boarder outlined, improved - continue to monitor - blood cultures (05/27) - 24hs - no growth Medications * Cefepime 1gm IVPB q24h (started on 05/27) - renal dosing * given 1 dose of Vanco in ED ESRD on HD T,T,S - Nephro consulted, Dr. Banks recs, T, T, S dialysis started - Patient appears fluid overloaded on PE - continue home medications - Calcium Acetate 667mg PO ACHS (home med) - F/u w/ social for placement hx of Systolic CHF - ECHO 02/15/18: LVEF 25-30%, systolic function severely impaired. Moderate Pulm HTN and Tricuspid regurg continue home medications - Aspirin 81mg PO daily - Carvedilol 6.25mg PO BID - Enalapril Maleate 2.5mg PO daily Hypothyroidism continue home medication - Synthroid 125mcg PO daily Anemia of Chronic Disease stable continue to monitor Hx of Urinary Retention continue home medication - Flomax 0.4mg PO daily History of heavy alcohol use patient quit 4-5 years ago-> heavy use, does not smell like alcohol on exam Abdominal US (02/15/18): stable limited abdomen ultraounds status post prior cholecystectomy. Normal CBD caliber. No prominent intrahepatic biliary dilatation. partial imaging of the pancreas and marked right renal atrophy again evident Prophylactic Care Pepcid 20mg PO daily Will discuss with Dr. Leonidas Thompson PGY1 <Donell Lauren Jr. - Last Filed: 05/31/18 13:20> Objective - Vital Signs/Intake and Output Vital Signs (last 24 hours): Temp Pulse Resp BP Pulse Ox 97.5 F L 72 18 140/76 98 05/30/18 16:45 05/30/18 16:45 05/30/18 16:45 05/30/18 16:45 05/31/18 12:32 - Labs Labs: 05/30/18 07:38 05/30/18 07:38 PT 12.2 SECONDS (9.7-12.2) 05/27/18 15:52 INR 1.1 05/27/18 15:52 APTT 24 SECONDS (21-34) 05/27/18 15:52 Attending/Attestation - Attestation I have personally seen and examined this patient.: Yes I have fully participated in the care of the patient.: Yes I have reviewed all pertinent clinical information, including history, physical exam and plan: Yes Notes (Text): 05/31/18 13:20 Reviewed resident note. Agree with findings and plan.
--- NOTE | 2018-05-28 09:47 | CP.PCM.CON ---
History of Present Illness - History of Present Illness History of Present Illness: Patient is a 68 year old male with a past medical history of Arthritis , HTN, hypothyroidism, ESRD on HD and systolic CHF presents to the ED complaining of right lower extremity pain, redness, and swelling. Patient explains he has been in [facility] for the past month during which time the swelling began. At the onset of symptoms, he comments that he experienced itchiness, pain, and erythema in his right lower extremity below the knee. While in [facility] the patient made note of using warm water and salt in an attempt to reduce the swelling, but that it only caused an increased burning sensation in his extremity. Patient returned from [facility] today at 2:30AM, after which he presented to the emergency room. Currently, the patient makes note that the pain in his right lower extremity has diminished but is still there. He admits to shortness of breath but has no other complaints. Denies fevers, chills, nausea, vomiting, diarrhea, constipation, chest pain, abdominal pain, numbness or tingling. Had dialysis done in [facility]- but done sporadically. Not done for several days Reportedly had prior LE venous doipplers- were negative; repeat pending PMH: Arthritis, HTN, ESRD on HD MWF, hypothyroidism and systolic CHF last known EF 25-30% PSH: Left AV Fistula, 01/27/18 chronic cholecystitis s/p laparoscopic cholecystectomy Family: sister due to renal failure. his brothers are healthy and well. Social: Patient admits to smoking, states he used to drink a lot of ETOH in [facility] but quit about 4-5 years ago, denies illicit drug use Allergies: NKDA Review of Systems - Constitutional Constitutional: Fatigue, Weight Gain - EENT Eyes: absent: As Per HPI, Blind Spots, Blurred Vision, Change in Vision, Decreased Night Vision, Diplopia, Discharge, Dry Eye, Exophthalmos, Floaters, Irritation, Itchy Eyes, Loss of Peripheral Vision, Pain, Photophobia, Requires Corrective Lenses, Sees Flashes, Spots in Vision, Tunnel Vision, Other Visual Disturbances, Loss of Vision, Other Ears: absent: As Per HPI, Decreased Hearing, Ear Discharge, Ear Pain, Tinnitus, Abnormal Hearing, Disequilibrium, Dizziness, Other Nose/Mouth/Throat: absent: As Per HPI, Epistaxis, Nasal Congestion, Nasal Discharge, Nasal Obstruction, Nasal Trauma, Nose Pain, Post Nasal Drip, Sinus Pain, Sinus Pressure, Bleeding Gums, Change in Voice, Dental Pain, Dry Mouth, Dysphagia, Halitosis, Hoarsness, Lip Swelling, Mouth Lesions, Mouth Pain, Odynophagia, Sore Throat, Throat Swelling, Tongue Swelling, Facial Pain, Neck Pain, Neck Mass, Other - Cardiovascular Cardiovascular: absent: As Per HPI, Acrocyanosis, Chest Pain, Chest Pain at Rest , Chest Pain with Activity, Claudication, Diaphoresis, Dyspnea, Dyspnea on Exertion, Edema, Irregular Heart Rhythm, Pain Radiating to Arm/Neck/Jaw, Leg Edema, Leg Ulcers, Lightheadedness, Orthopnea, Palpitations, Paroxysmal Nocturnal Dyspnea, Pedal Edema, Radiating Pain, Rapid Heart Rate, Slow Heart Rate, Syncope, Other - Respiratory Respiratory: absent: As Per HPI, Cough, Dyspnea, Hemoptysis, Dyspnea on Exertion , Wheezing, Snoring, Stridor, Pain on Inspiration, Chest Congestion, Excessive Mucous Production, Change in Mucous Color, Pain with Coughing, Other - Gastrointestinal Gastrointestinal: Abdominal Pain, Nausea - Genitourinary Genitourinary: As Per HPI - Musculoskeletal Musculoskeletal: Muscle Cramps, Muscle Weakness, Myalgias, Radiating Pain into Limb, Stiffness - Integumentary Integumentary: absent: As Per HPI, Acne, Alopecia, Bleeding Lesions, Change in Hair, Change in Nails, Change in Pigmentation, Changing Lesions, Dry Skin, Erythema, Furuncle, Hirsutism, Lesions, New Lesions, Non-Healing Lesions, Photosensitivity, Pruritus, Rash, Skin Pain, Skin Ulcer, Sores, Striae, Swelling , Unusual Bruising, Wounds, Jaundice, Other Past Patient History - Infectious Disease Hx of Infectious Diseases: None - Past Medical History & Family History Past Medical History?: Yes - Past Social History Smoking Status: Former Smoker Chewing Tobacco Use: No Cigar Use: No Alcohol: > 2 Drinks/Day Drugs: Denies Home Situation {Lives}: With Family - CARDIAC Hx Cardiac Disorders: Yes Hx Hypertension: Yes Hx Peripheral Edema: Yes (left arm and hand edema) - PULMONARY Hx Respiratory Disorders: No - NEUROLOGICAL Hx Dementia: No Hx Migraine: No Hx Multiple Sclerosis: No Hx Parkinson's Disease: No Hx Seizures: No Hx Transient Ischemic Attacks (TIA): No - HEENT Hx HEENT Problems: No - RENAL Hx Chronic Kidney Disease: Yes Date of Last Dialysis Treatment: 05/21/18 - ENDOCRINE/METABOLIC Hx Hypothyroidism: Yes - HEMATOLOGICAL/ONCOLOGICAL Hx Sickle Cell Disease: No - INTEGUMENTARY Hx Dermatological Problems: No - MUSCULOSKELETAL/RHEUMATOLOGICAL Hx Musculoskeletal Disorders: Yes Hx Arthritis: Yes Hx Falls: No - GASTROINTESTINAL Hx Gastrointestinal Disorders: No - GENITOURINARY/GYNECOLOGICAL Hx Genitourinary Disorders: No Hx Sexually Transmitted Disorders: No - PSYCHIATRIC Hx Psychophysiologic Disorder: No Hx Substance Use: No - SURGICAL HISTORY Hx Surgeries: Yes Hx Cholecystectomy: Yes - ANESTHESIA Hx Anesthesia: Yes Hx Anesthesia Reactions: Yes Hx Malignant Hyperthermia: No Meds Allergies/Adverse Reactions: Allergies Allergy/AdvReac Type Severity Reaction Status Date / Time No Known Allergies Allergy Verified 05/27/18 13:58 - Medications Medications: Current Medications Aspirin (Ecotrin) 81 mg PO DAILY [facility] Calcium Acetate (Phoslo) 667 mg PO ACHS [facility] Last Admin: 05/28/18 07:45 Dose: 667 mg Carvedilol (Coreg) 6.25 mg PO BID [facility] Enalapril Maleate (Vasotec) 2.5 mg PO DAILY [facility] Famotidine (Pepcid) 20 mg PO DAILY [facility] Cefepime HCl (Maxipime Iv 1 Gm Premix) 1 gm in 50 mls @ 100 mls/hr IVPB Q24H [facility] PRN Reason: Protocol Levothyroxine Sodium (Synthroid) 125 mcg PO DAILY@0630 [facility] Last Admin: 05/28/18 05:46 Dose: 125 mcg Tamsulosin HCl (Flomax) 0.4 mg PO DAILY [facility] Physical Exam - Head Exam Head Exam: ATRAUMATIC, NORMAL INSPECTION - Eye Exam Eye Exam: EOMI, Normal appearance - Neck Exam Neck exam: Positive for: Normal Inspection. Negative for: Tenderness - Respiratory Exam Respiratory Exam: Clear to Auscultation Bilateral, NORMAL BREATHING PATTERN - Cardiovascular Exam Cardiovascular Exam: REGULAR RHYTHM, +S1 - GI/Abdominal Exam GI & Abdominal Exam: Soft. absent: Tenderness - Extremities Exam Extremities exam: Positive for: pedal edema, tenderness - Neurological Exam Neurological exam: Alert, CN II-XII Intact - Skin Skin Exam: Rash, Warm Results - Vital Signs Recent Vital Signs: Last Vital Signs Temp 97.9 F 05/28/18 07:58 Pulse 78 05/28/18 07:58 Resp 20 05/28/18 07:58 BP 150/80 05/28/18 07:58 Pulse Ox 98 05/28/18 07:58 - Labs Result Diagrams: 05/27/18 15:52 05/27/18 15:52 Labs: Laboratory Results - last 24 hr 05/27/18 05/27/18 05/27/18 15:52 15:52 15:52 WBC 6.1 RBC 4.17 L Hgb 12.8 Hct 38.3 MCV 91.9 MCH 30.7 MCHC 33.5 RDW 18.2 H Plt Count 203 MPV 9.1 Neut % (Auto) 76.8 H Lymph % (Auto) 13.4 L Mcnairy % (Auto) 6.3 Eos % (Auto) 2.6 Baso % (Auto) 0.9 Neut # (Auto) 4.7 Lymph # (Auto) 0.8 L Mcnairy # (Auto) 0.4 Eos # (Auto) 0.2 Baso # (Auto) 0.1 PT 12.2 INR 1.1 APTT 24 Sodium 135 Potassium 5.5 H Chloride 96 L Carbon Dioxide 20 L Anion Gap 25 H BUN 76 H Creatinine 9.3 H* D Est GFR ( Amer) 7 Est GFR (Non-Af Amer) 6 Random Glucose 90 Calcium 8.5 L Total Bilirubin 1.4 H AST 15 L D ALT 26 Alkaline Phosphatase 152 H D Total Creatine Kinase 112 CK-MB (Mass) 2.22 Troponin I 0.0470 NT-Pro-B Natriuret Pep [id number] H Total Protein 7.1 Albumin 4.2 Globulin 3.0 Albumin/Globulin Ratio 1.4 Assessment & Plan (1) Hypertensive chronic kidney disease with stage 5 chronic kidney disease or end stage renal disease Status: Acute (2) Lower extremity cellulitis Status: Acute - Assessment and Plan (Free Text) Plan: IV ABs LE venous doppler scan Dialysis today
--- NOTE | 2018-05-28 14:38 | CARD ---
APPROVED REPORT Date of service: 05/27/2018 EKG Measurement Heart [id number] <Conclusion> Normal sinus rhythm with sinus arrhythmia Indeterminate axis Prolonged QT Abnormal ECG
[2018-05-28] MEDS: Cefepime IV 1 gm in Dextrose 1 GM/50 ML BAG IVPB SCH ×2 (18:20→21:08)
[2018-05-28 18:37] LABS: HEPATITIS B SURFACE AG Negative (NEGATIVE)
[2018-05-28 18:42] LABS: HEPATITIS B CORE AB NEGATIVE (NEGATIVE)
[2018-05-28 18:54] LABS: HEPATITIS C ANTIBODY NEGATIVE (NEGATIVE)
[2018-05-29] MEDS: Levothyroxine 125 MCG TAB PO SCH (05:39)
[2018-05-29 07:28] LABS: HEMOGLOBIN 12.4 g/dL (12.0-18.0); MEAN CELL VOLUME 90.6 fL (80.0-94.0); MEAN CORPUSCULAR HEMOGLOBIN 30.3 pg (27.0-31.0); MEAN CORPUSCULAR HGB CONC 33.4 g/dL (33.0-37.0); MEAN PLATELET VOLUME 8.1 fL (7.2-11.7); RBC 4.08 Mil/uL (4.40-5.90); RED CELL DISTRIBUTION WIDTH 17.5 % (11.5-14.5); WHITE BLOOD COUNT 5.5 K/uL (4.8-10.8)
[2018-05-29 08:09] LABS: ALB/GLOB RATIO 1.2 (1.0-2.1); ALBUMIN 3.6 g/dL (3.5-5.0); CALCIUM 8.3 mg/dl (8.6-10.4)
--- NOTE | 2018-05-29 11:17 | VASCLAB ---
Date of service: 05/27/2018 PROCEDURE: Right Lower Extremity Venous Duplex Exam. HISTORY: R LEG SWELLING, R/.O DVT PRIORS: None. TECHNIQUE: Right common femoral, femoral, popliteal and posterior tibial, peroneal and great saphenous veins were evaluated. Flow was assessed with color Doppler, compressibility, assessment of phasic flow and augmentation response. Report prepared by Jermaine Pires, AUGUSTIN, RVT FINDINGS: RIGHT: 1. Common Femoral Vein: 1.1. Compressibility - Fully compressible: Thrombus - None: Flow - Phasic: Augmentation -Normal: Reflux - None. 2. Femoral Vein: 2.1. Compressibility - Fully compressible: Thrombus - None: Flow - Phasic: Augmentation -Normal: Reflux - None. 3. Popliteal Vein: 3.1. Compressibility - Fully compressible: Thrombus - None: Flow - Phasic: Augmentation -Normal: Reflux - None. 4. Posterior Tibial Vein: 4.1. Compressibility - Fully compressible: Thrombus - None: Flow - Phasic: Augmentation -Normal: Reflux - None. 5. Peroneal Vein: 5.1. Compressibility - Fully compressible: Thrombus - None: Flow - Phasic: Augmentation -Normal: Reflux - None. 6. Great Saphenous Vein: 6.1. Compressibility - Fully compressible: Thrombus -None: Flow - Phasic: Augmentation - Normal: Reflux - None. OTHER FINDINGS: IMPRESSION: No evidence of deep or superficial vein thrombosis of the right lower extremity with excellent venous flow. Normal valve function noted of the right side. Normal venous flow noted in the left common femoral vein.
--- NOTE | 2018-05-29 11:47 | CP.PCM.PN ---
<Fern Kraft Y - Last Filed: 05/29/18 17:51> Subjective - Date & Time of Evaluation Date of Evaluation: 05/29/18 Time of Evaluation: 09:15 - Subjective Subjective: PGY-1 Medicine Progress note for Dr. Lauren Patient was seen and examined at bedside in no acute distress. Nurse reports no overnight events. Patient has no new complaints. States the fullness in his R leg has diminished. He reports that after dialysis yesterday, he feels better today. Patient complains of an itchy throat and non-productive cough. He states that he is eating well and has no issues with urination. His last bowel movement was yesterday and it was normal. Denies chest pain, shortness of breath , diarrhea, constipation, nausea, vomiting. Objective - Vital Signs/Intake and Output Vital Signs (last 24 hours): Temp Pulse Resp BP Pulse Ox 97.7 F 85 20 129/80 99 05/29/18 07:35 05/29/18 07:35 05/29/18 07:35 05/29/18 11:16 05/29/18 07:35 - Medications Medications: Current Medications Aspirin (Ecotrin) 81 mg PO DAILY [facility] Last Admin: 05/29/18 11:16 Dose: 81 mg Calcium Acetate (Phoslo) 667 mg PO ACHS [facility]PL[facility] BY [facility] Last Admin: 05/29/18 11:17 Dose: 667 mg Carvedilol (Coreg) 6.25 mg PO BID [facility] Last Admin: 05/29/18 11:22 Dose: 6.25 mg Enalapril Maleate (Vasotec) 2.5 mg PO DAILY [facility] BY [facility] Last Admin: 05/29/18 11:16 Dose: 2.5 mg Famotidine (Pepcid) 20 mg PO DAILY [facility] Last Admin: 05/29/18 11:16 Dose: 20 mg Heparin Sodium (Porcine) (Heparin) 5,000 units SC Q12 REPLACED BY [facility] Last Admin: 05/29/18 10:20 Dose: 5,000 units Cefepime HCl (Maxipime Iv 1 Gm Premix) 1 gm in 50 mls @ 100 mls/hr IVPB Q24H REPLACED BY [facility] PRN Reason: Protocol Last Admin: 05/28/18 21:08 Dose: 100 mls/hr Levothyroxine Sodium (Synthroid) 125 mcg PO DAILY@0630 [facility] BY [facility] Last Admin: 05/29/18 05:39 Dose: 125 mcg Tamsulosin HCl (Flomax) 0.4 mg PO DAILY [facility] Last Admin: 05/29/18 11:22 Dose: 0.4 mg - Labs Labs: 05/29/18 07:19 05/29/18 07:19 PT 12.2 SECONDS (9.7-12.2) 05/27/18 15:52 INR 1.1 05/27/18 15:52 APTT 24 SECONDS (21-34) 05/27/18 15:52 - Constitutional Appears: Non-toxic, No Acute Distress - Head Exam Head Exam: ATRAUMATIC, NORMOCEPHALIC - Eye Exam Eye Exam: EOMI, Normal appearance - ENT Exam ENT Exam: Mucous Membranes Moist, Normal Exam Additional comments: no lymphadenopathy - Respiratory Exam Respiratory Exam: Clear to Ausculation Bilateral, NORMAL BREATHING PATTERN. absent: Rales, Rhonchi, Wheezes - Cardiovascular Exam Cardiovascular Exam: REGULAR RHYTHM, +S1, +S2. absent: Murmur - GI/Abdominal Exam GI & Abdominal Exam: Soft, Normal Bowel Sounds. absent: Guarding, Tenderness - Extremities Exam Extremities Exam: Full ROM, Normal Capillary Refill, Pedal Edema Additional comments: LUE AV fistula RLE erythema, improved margins, within markings, reducing edema, no warmth to touch LLE 2+ pitting edema - Back Exam Back Exam: absent: CVA tenderness (L), CVA tenderness (R) - Neurological Exam Neurological Exam: Alert, Awake, Oriented x3 - Psychiatric Exam Psychiatric exam: Normal Affect, Normal Mood - Skin Skin Exam: Dry, Intact, Normal Color Assessment and Plan - Assessment and Plan (Free Text) Assessment: 68 yr male w/ PMHx Arthritis, HTN, hypothyroidism, ESRD on HD and systolic CHF , comes to ED for RLE cellulitis Plan: Right Lower Extremity Cellulitis - RLE duplex - no DVT - afebrile, no leukocytosis - proximal boarder outlined, improved - continue to monitor - blood cultures (05/27) - 24hs - no growth Medications * Cefepime 1gm IVPB q24h (started on 05/28) - renal dosing * given 1 dose of Vanco in ED ESRD on HD T,T,S - Nephro consulted, Dr. Banks recs, T, T, S dialysis started - Patient appears fluid overloaded on PE - continue home medications - Calcium Acetate 667mg PO ACHS (home med) - F/u w/ social for placement hx of Systolic CHF - ECHO 02/15/18: LVEF 25-30%, systolic function severely impaired. Moderate Pulm HTN and Tricuspid regurg continue home medications - Aspirin 81mg PO daily - Carvedilol 6.25mg PO BID - Enalapril Maleate 2.5mg PO daily Hypothyroidism continue home medication - Synthroid 125mcg PO daily Anemia of Chronic Disease stable continue to monitor Hx of Urinary Retention continue home medication - Flomax 0.4mg PO daily History of heavy alcohol use patient quit 4-5 years ago-> heavy use, does not smell like alcohol on exam Abdominal US (02/15/18): stable limited abdomen ultraounds status post prior cholecystectomy. Normal CBD caliber. No prominent intrahepatic biliary dilatation. partial imaging of the pancreas and marked right renal atrophy again evident Prophylactic Care Pepcid 20mg PO daily Dispo: Patient will receive dialysis and antibiotics tomorrow prior to discharge. Patient has seat waiting for him at regular dialysis center for MWF. Expecting him on Friday 06/01. Will be discharged with vancomycin with dialysis and po antibiotics. will d/w Dr. Leonidas Kraft PGY-1 <Donell Lauren Jr. - Last Filed: 05/31/18 13:20> Objective - Vital Signs/Intake and Output Vital Signs (last 24 hours): Temp Pulse Resp BP Pulse Ox 97.5 F L 72 18 140/76 98 05/30/18 16:45 05/30/18 16:45 05/30/18 16:45 05/30/18 16:45 05/31/18 12:32 - Labs Labs: 05/30/18 07:38 05/30/18 07:38 PT 12.2 SECONDS (9.7-12.2) 05/27/18 15:52 INR 1.1 05/27/18 15:52 APTT 24 SECONDS (21-34) 05/27/18 15:52 Attending/Attestation - Attestation I have personally seen and examined this patient.: Yes I have fully participated in the care of the patient.: Yes I have reviewed all pertinent clinical information, including history, physical exam and plan: Yes Notes (Text): 05/31/18 13:20 Reviewed resident note. Agree with findings and plan.
[2018-05-29] MEDS: Cefepime IV 1 gm in Dextrose 1 GM/50 ML BAG IVPB SCH (13:21)
--- NOTE | 2018-05-29 13:23 | CP.PCM.PN ---
Subjective - Date & Time of Evaluation Date of Evaluation: 05/29/18 Time of Evaluation: 13:18 - Subjective Subjective: Feels better right foot cellulitis looks better- less erythema Stable dialysis 05/28 No n, v, f, chills, SOB Objective - Vital Signs/Intake and Output Vital Signs (last 24 hours): Temp Pulse Resp BP Pulse Ox 97.7 F 77 20 129/80 99 05/29/18 07:35 05/29/18 08:00 05/29/18 07:35 05/29/18 11:16 05/29/18 07:35 - Medications Medications: Current Medications Aspirin (Ecotrin) 81 mg PO DAILY [facility] Last Admin: 05/29/18 11:16 Dose: 81 mg Calcium Acetate (Phoslo) 667 mg PO ACHS [facility] Last Admin: 05/29/18 11:17 Dose: 667 mg Carvedilol (Coreg) 6.25 mg PO BID [facility] Last Admin: 05/29/18 11:22 Dose: 6.25 mg Enalapril Maleate (Vasotec) 2.5 mg PO DAILY [facility] Last Admin: 05/29/18 11:16 Dose: 2.5 mg Famotidine (Pepcid) 20 mg PO DAILY [facility] Last Admin: 05/29/18 11:16 Dose: 20 mg Heparin Sodium (Porcine) (Heparin) 5,000 units SC Q12 [facility] Last Admin: 05/29/18 10:20 Dose: 5,000 units Cefepime HCl (Maxipime Iv 1 Gm Premix) 1 gm in 50 mls @ 100 mls/hr IVPB Q24H [facility] PRN Reason: Protocol Last Admin: 05/28/18 21:08 Dose: 100 mls/hr Levothyroxine Sodium (Synthroid) 125 mcg PO DAILY@0630 [facility] Last Admin: 05/29/18 05:39 Dose: 125 mcg Tamsulosin HCl (Flomax) 0.4 mg PO DAILY [facility] Last Admin: 05/29/18 11:22 Dose: 0.4 mg - Labs Labs: 05/29/18 07:19 05/29/18 07:19 PT 12.2 SECONDS (9.7-12.2) 05/27/18 15:52 INR 1.1 05/27/18 15:52 APTT 24 SECONDS (21-34) 05/27/18 15:52 - Constitutional Appears: No Acute Distress, Chronically Ill - Head Exam Head Exam: ATRAUMATIC, NORMAL INSPECTION - Eye Exam Eye Exam: EOMI, Normal appearance - Neck Exam Neck Exam: Normal Inspection. absent: Tenderness - Respiratory Exam Respiratory Exam: Clear to Ausculation Bilateral, NORMAL BREATHING PATTERN - Cardiovascular Exam Cardiovascular Exam: REGULAR RHYTHM, +S1 - GI/Abdominal Exam GI & Abdominal Exam: Soft. absent: Tenderness - Extremities Exam Extremities Exam: Normal Inspection. absent: Tenderness - Neurological Exam Neurological Exam: Awake, CN II-XII Intact - Skin Skin Exam: Dry, Warm Assessment and Plan (1) Hypertensive chronic kidney disease with stage 5 chronic kidney disease or end stage renal disease Status: Acute (2) Lower extremity cellulitis Status: Acute (3) ESRD (end stage renal disease) Status: Acute - Assessment and Plan (Free Text) Plan: IV ABs Dialysis in AM Then HD MWF- regular schedule
[2018-05-30] MEDS: Levothyroxine 125 MCG TAB PO SCH (05:57)
[2018-05-30 07:58] LABS: BASO # 0.1 K/uL (0.0-0.2); BASO % 1.5 % (0.0-2.0); EOS # 0.2 K/uL (0.0-0.7); EOS % 3.8 % (0.0-4.0); LYMPH # 0.9 K/uL (1.0-4.3); LYMPH % 19.5 % (20.0-40.0); MEAN CELL VOLUME 91.2 fL (80.0-94.0); MEAN CORPUSCULAR HEMOGLOBIN 30.3 pg (27.0-31.0); MEAN CORPUSCULAR HGB CONC 33.2 g/dL (33.0-37.0); MEAN PLATELET VOLUME 8.9 fL (7.2-11.7); MONO # 0.6 K/uL (0.0-0.8); MONO % 12.6 % (0.0-10.0); NEUT # 3.1 K/uL (1.8-7.0); NEUT % 62.6 % (50.0-75.0); NRBC % 0.1 % (0.0-2.0); RBC 3.96 Mil/uL (4.40-5.90); RED CELL DISTRIBUTION WIDTH 17.5 % (11.5-14.5); WHITE BLOOD COUNT 4.9 K/uL (4.8-10.8)
[2018-05-30 08:30] LABS: CALCIUM 8.2 mg/dl (8.6-10.4)
--- NOTE | 2018-05-30 09:58 | CP.PCM.PN ---
Subjective - Date & Time of Evaluation Date of Evaluation: 05/30/18 Time of Evaluation: 09:56 - Subjective Subjective: Feels better No fevers, chills, n, v, SOB For HD today LE less erythematous Objective - Vital Signs/Intake and Output Vital Signs (last 24 hours): Temp Pulse Resp BP Pulse Ox 97.6 F 75 20 128/82 97 05/30/18 08:32 05/30/18 08:32 05/30/18 08:32 05/30/18 08:32 05/30/18 08:32 - Medications Medications: Current Medications Aspirin (Ecotrin) 81 mg PO DAILY [facility] Last Admin: 05/30/18 09:39 Dose: 81 mg Calcium Acetate (Phoslo) 667 mg PO ACHS [facility] Last Admin: 05/30/18 09:38 Dose: 667 mg Carvedilol (Coreg) 6.25 mg PO BID [facility] Last Admin: 05/30/18 09:39 Dose: 6.25 mg Enalapril Maleate (Vasotec) 2.5 mg PO DAILY [facility] Last Admin: 05/29/18 11:16 Dose: 2.5 mg Famotidine (Pepcid) 20 mg PO DAILY [facility] Last Admin: 05/30/18 09:39 Dose: 20 mg Heparin Sodium (Porcine) (Heparin) 5,000 units SC Q12 [facility] Last Admin: 05/30/18 09:39 Dose: 5,000 units Cefepime HCl (Maxipime Iv 1 Gm Premix) 1 gm in 50 mls @ 100 mls/hr IVPB Q24H [facility] PRN Reason: Protocol Last Admin: 05/29/18 13:21 Dose: 100 mls/hr Levothyroxine Sodium (Synthroid) 125 mcg PO DAILY@0630 [facility] Last Admin: 05/30/18 05:57 Dose: 125 mcg Tamsulosin HCl (Flomax) 0.4 mg PO DAILY [facility] Last Admin: 05/30/18 09:39 Dose: 0.4 mg - Labs Labs: 05/30/18 07:38 05/30/18 07:38 PT 12.2 SECONDS (9.7-12.2) 05/27/18 15:52 INR 1.1 05/27/18 15:52 APTT 24 SECONDS (21-34) 05/27/18 15:52 - Constitutional Appears: Non-toxic, Chronically Ill - Head Exam Head Exam: ATRAUMATIC, NORMAL INSPECTION - Eye Exam Eye Exam: EOMI, Normal appearance - Neck Exam Neck Exam: Normal Inspection. absent: Tenderness - Respiratory Exam Respiratory Exam: Clear to Ausculation Bilateral, NORMAL BREATHING PATTERN - Cardiovascular Exam Cardiovascular Exam: REGULAR RHYTHM, +S1 - GI/Abdominal Exam GI & Abdominal Exam: Soft. absent: Tenderness - Extremities Exam Extremities Exam: Pedal Edema. absent: Tenderness - Neurological Exam Neurological Exam: Awake, CN II-XII Intact - Skin Skin Exam: Dry, Warm Assessment and Plan (1) Hypertensive chronic kidney disease with stage 5 chronic kidney disease or end stage renal disease Status: Acute (2) Lower extremity cellulitis Status: Acute (3) ESRD (end stage renal disease) Status: Acute - Assessment and Plan (Free Text) Plan: Dialysis today then MWF IV ABs- can consider switching to po ABs
[2018-05-30] MEDS ORDERED: Albuterol-Ipratrop 3 mg / 0.5 (3 ml) UD INH SCH (10:45)
--- NOTE | 2018-05-30 14:35 | CP.PCM.DIS ---
Provider - Provider Date of Admission: 05/27/18 17:32 Attending physician: Donell Lauren Jr, MD Consults: Nephro- Darren Time Spent in preparation of Discharge (in minutes): 25 Hospital Course - Lab Results Lab Results: Micro Results 05/27/18 16:15 Blood Blood Culture - Preliminary NO GROWTH AFTER 48 HOURS 05/27/18 15:45 Blood Blood Culture - Preliminary NO GROWTH AFTER 48 HOURS Most Recent Lab Values WBC 4.9 K/uL (4.8-10.8) 05/30/18 07:38 RBC 3.96 Mil/uL (4.40-5.90) L 05/30/18 07:38 Hgb 12.0 g/dL (12.0-18.0) 05/30/18 07:38 Hct 36.2 % (35.0-51.0) 05/30/18 07:38 MCV 91.2 fL (80.0-94.0) 05/30/18 07:38 MCH 30.3 pg (27.0-31.0) 05/30/18 07:38 MCHC 33.2 g/dL (33.0-37.0) 05/30/18 07:38 RDW 17.5 % (11.5-14.5) H 05/30/18 07:38 Plt Count 139 K/uL (130-400) 05/30/18 07:38 MPV 8.9 fL (7.2-11.7) 05/30/18 07:38 Neut % (Auto) 62.6 % (50.0-75.0) 05/30/18 07:38 Lymph % (Auto) 19.5 % (20.0-40.0) L 05/30/18 07:38 [place] % (Auto) 12.6 % (0.0-10.0) H 05/30/18 07:38 Eos % (Auto) 3.8 % (0.0-4.0) 05/30/18 07:38 Baso % (Auto) 1.5 % (0.0-2.0) 05/30/18 07:38 Neut # (Auto) 3.1 K/uL (1.8-7.0) 05/30/18 07:38 Lymph # (Auto) 0.9 K/uL (1.0-4.3) L 05/30/18 07:38 [place] # (Auto) 0.6 K/uL (0.0-0.8) 05/30/18 07:38 Eos # (Auto) 0.2 K/uL (0.0-0.7) 05/30/18 07:38 Baso # (Auto) 0.1 K/uL (0.0-0.2) 05/30/18 07:38 PT 12.2 SECONDS (9.7-12.2) 05/27/18 15:52 INR 1.1 05/27/18 15:52 APTT 24 SECONDS (21-34) 05/27/18 15:52 Sodium 134 mmol/L (132-148) 05/30/18 07:38 Potassium 4.9 mmol/L (3.6-5.2) 05/30/18 07:38 Chloride 96 mmol/L (98-107) L 05/30/18 07:38 Carbon Dioxide 24 mmol/L (22-30) 05/30/18 07:38 Anion Gap 19 (10-20) 05/30/18 07:38 BUN 51 mg/dL (9-20) H 05/30/18 07:38 Creatinine 6.8 mg/dL (0.8-1.5) H 05/30/18 07:38 Est GFR ( Amer) 10 05/30/18 07:38 Est GFR (Non-Af Amer) 8 05/30/18 07:38 Random Glucose 80 mg/dL (75-110) 05/30/18 07:38 Calcium 8.2 mg/dl (8.6-10.4) L 05/30/18 07:38 Phosphorus 4.7 mg/dL (2.5-4.5) H 05/29/18 07:19 Total Bilirubin 1.4 mg/dL (0.2-1.3) H 05/29/18 07:19 AST 12 U/L (17-59) L 05/29/18 07:19 ALT 23 U/L (21-72) 05/29/18 07:19 Alkaline Phosphatase 100 U/L (38-126) 05/29/18 07:19 Total Creatine Kinase 112 U/L (55-170) 05/27/18 15:52 CK-MB (Mass) 2.22 ng/mL (0.0-3.38) 05/27/18 15:52 Troponin I 0.0470 ng/mL (0.00-0.120) 05/27/18 15:52 NT-Pro-B Natriuret Pep 917299 pg/mL (0-900) H 05/27/18 15:52 Total Protein 6.7 g/dL (6.3-8.3) 05/29/18 07:19 Albumin 3.6 g/dL (3.5-5.0) 05/29/18 07:19 Globulin 3.1 gm/dL (2.2-3.9) 05/29/18 07:19 Albumin/Globulin Ratio 1.2 (1.0-2.1) 05/29/18 07:19 Hep Bs Antigen Negative (NEGATIVE) 05/28/18 17:00 Hep Bs Antibody Negative (NEGATIVE) 05/28/18 17:00 Hep B Core IgM Ab Negative (NEGATIVE) 05/28/18 17:00 Hepatitis C Antibody Negative (NEGATIVE) 05/28/18 17:00 - Hospital Course Hospital Course: Upon hospital admission: Patient is a 68 year old male with a past medical history of Arthritis, HTN, hypothyroidism, ESRD on HD and systolic CHF presents to the ED complaining of right lower extremity pain, redness, and swelling. Patient explains he has been in [facility] for the past month during which time the swelling began. At the onset of symptoms, he comments that he experienced itchiness, pain, and erythema in his right lower extremity below the knee. While in [facility] the patient made note of using warm water and salt in an attempt to reduce the swelling, but that it only caused an increased burning sensation in his extremity. Patient returned from [facility] today at 2 :30AM, after which he presented to the emergency room. Currently, the patient makes note that the pain in his right lower extremity has diminished but is still there. He admits to shortness of breath but has no other complaints. Denies fevers, chills, nausea, vomiting, diarrhea, constipation, chest pain, abdominal pain, numbness or tingling. Architectural Project Captain: Dr. Banks PMH: Arthritis, HTN, ESRD on HD MWF, hypothyroidism and systolic CHF last known EF 25-30% PSH: Left AV Fistula, 01/27/18 chronic cholecystitis s/p laparoscopic cholecystectomy Family: sister due to renal failure. his brothers are healthy and well. Social: Patient admits to smoking, states he used to drink a lot of ETOH in [facility] but quit about 4-5 years ago, denies illicit drug use Allergies: NKDA During hospital course, the patient was evaluated and treated for the followin. Right Lower Extremity Cellulitis with RLE duplex - no DVT. Patient remained afebrile with no leukocytosis. Proximal boarder of R LE outlined and steadily improved. Blood cultures (05/27) remained negative. Patient was treated with Cefepime 1gm IVPB q24h (started on 05/28) - renal dosing and was given 1 dose of Vanco in ED. 2. ESRD on HD T,T,S - Nephro consulted, Dr. Banks recs, T, T, S dialysis started - Patient appears fluid overloaded on PE and status improved with dialysis treatment. - Home med was continued: Calcium Acetate 667mg PO ACHS (home med) The patient did well during this admission, responded well to treatment, and was deemed stable for discharge. Upon hospital discharge, the patient was provided with the following instructions: Patient is stable for discharge per Dr. Lauren. Patient should resume all medications as outlined in this document. Additionally, patient should take the new medications listed below (scripts provided). 1. Please make an appointment and follow up with your Primary Doctor within one week of discharge. 2. Patient has seat waiting at regular dialysis center for MWF. Expecting him on Friday 06/01. Will be discharged with vancomycin 1Gm qWeekly with dialysis for 2 total doses. 3. Continue oral Doxycycline 100mg twice daily for 5 days for your skin infection. Patient should return to ED immediately if symptoms return or worsen. Instructions discussed with patient who understood and agreed. Newly prescribed medications: Vancomycin 1Gm qWeekly with dialysis #2 Doxycycline 100mg PO BID #10 This is a summary of the patient's hospital admission, see chart for comprehensive detail. - Date & Time of H&P Date of H&P: 05/27/18 Time of H&P: 22:21 Discharge Exam - Additional Findings Additional findings: - Constitutional Appears: Non-toxic, No Acute Distress - Head Exam Head Exam: ATRAUMATIC, NORMOCEPHALIC - Eye Exam Eye Exam: EOMI, Normal appearance - ENT Exam ENT Exam: Mucous Membranes Moist, Normal Exam Additional comments: no lymphadenopathy - Respiratory Exam Respiratory Exam: Clear to Ausculation Bilateral, NORMAL BREATHING PATTERN. absent: Rales, Rhonchi, Wheezes - Cardiovascular Exam Cardiovascular Exam: REGULAR RHYTHM, +S1, +S2. absent: Murmur - GI/Abdominal Exam GI & Abdominal Exam: Soft, Normal Bowel Sounds. absent: Guarding, Tenderness - Extremities Exam Extremities Exam: Full ROM, Normal Capillary Refill, Pedal Edema Additional comments: LUE AV fistula RLE erythema, margins improving, less erythema and edema. Mildly warmth to touch. - Back Exam Back Exam: absent: CVA tenderness (L), CVA tenderness (R) - Neurological Exam Neurological Exam: Alert, Awake, Oriented x3 - Psychiatric Exam Psychiatric exam: Normal Affect, Normal Mood - Skin Skin Exam: Dry, Intact, Normal Color Discharge Plan - Discharge Medications Prescriptions: Doxycycline Hyclate [Doryx] 100 mg PO BID #10 cap Vancomycin/0.9 % Sod Chloride [Vancomycin 1 G/100Ml-0.9% NaCl] 1 gm IV Q7D #2 plast..bag - Follow Up Plan Condition: GOOD Disposition: HOME/ ROUTINE Additional Instructions: Patient is stable for discharge per Dr. Lauren. Patient should resume all medications as outlined in this document. Additionally, patient should take the new medications listed below (scripts provided). 1. Please make an appointment and follow up with your Primary Doctor within one week of discharge. 2. Patient has seat waiting at regular dialysis center for MWF. Expecting him on Friday 06/01. Will be discharged with vancomycin 1Gm qWeekly with dialysis for 2 total doses. 3. Continue oral Doxycycline 100mg twice daily for 5 days for your skin infection. Patient should return to ED immediately if symptoms return or worsen. Instructions discussed with patient who understood and agreed. Newly prescribed medications: Vancomycin 1Gm qWeekly with dialysis #2 Doxycycline 100mg PO BID #10
[2018-05-30 17:26] VITALS: BP 140/76; PULSE 72; RESP 18; TEMP 97.5
[2018-05-31 12:21] VITALS: O2SAT 98
== END 2018-05-30 19:45 | disposition home or self-care (01) | DRG 602 ==
LOC: C.ER 13:32 → C.9E 17:32 → C.6T 19:03
PROVIDERS: ADMIT Internal Medicine; ATTEND Internal Medicine
PROC: 5A1D70Z Performance of Urinary Filtration, Intermittent, Less than 6 Hours Per Day (ICD-10-PCS; principal; 2018-05-28)
PROC: 5A1D70Z Performance of Urinary Filtration, Intermittent, Less than 6 Hours Per Day (ICD-10-PCS; 2018-05-30)
DX: L03.115 Cellulitis of right lower limb (principal); N18.6 End stage renal disease; I13.2 Hypertensive heart and chronic kidney disease with heart failure and with stage 5 chronic kidney disease, or end stage renal disease; I50.22 Chronic systolic (congestive) heart failure; F17.200 Nicotine dependence, unspecified, uncomplicated; E03.9 Hypothyroidism, unspecified; Z99.2 Dependence on renal dialysis

== ENCOUNTER 2018-06-29 11:19 | Inpatient (IN) | payer MEDICARE, OTHER ==
[2018-06-29 13:52] LABS: BASO # 0.1 K/uL (0.0-0.2); BASO % 1.4 % (0.0-2.0); EOS # 0.2 K/uL (0.0-0.7); EOS % 3.9 % (0.0-4.0); HEMOGLOBIN 12.1 g/dL (12.0-18.0); LYMPH # 1.1 K/uL (1.0-4.3); LYMPH % 19.6 % (20.0-40.0); MEAN CORPUSCULAR HEMOGLOBIN 30.6 pg (27.0-31.0); MEAN CORPUSCULAR HGB CONC 32.8 g/dL (33.0-37.0); MEAN PLATELET VOLUME 8.9 fL (7.2-11.7); MONO # 0.6 K/uL (0.0-0.8); NEUT # 3.7 K/uL (1.8-7.0); NEUT % 65.1 % (50.0-75.0); RBC 3.95 Mil/uL (4.40-5.90); RED CELL DISTRIBUTION WIDTH 17.8 % (11.5-14.5); WHITE BLOOD COUNT 5.7 K/uL (4.8-10.8)
[2018-06-29 13:53] LABS: MEAN CELL VOLUME 93.3 fL (80.0-94.0)
--- NOTE | 2018-06-29 14:04 | C.PDOC ---
History Of Present Illness 68 y/o male presents to ED with c/o fatigue for 4 days and x7 episodes of non loose bowel movements last night. Patient describes stool as pale colored associated with nausea. Patient reports he recently came back from [facility] on 05/2018 and has noted swelling to lower extremities. Patient denies fever, chills, diarrhea, vomiting, chest pain, sob or any other complaints at this time. Time Seen by Provider: 06/29/18 13:05 Chief Complaint (Nursing): Abdominal Pain History Per: Patient History/Exam Limitations: no limitations Onset/Duration Of Symptoms: Days Current Symptoms Are (Timing): Still Present Past Medical History Reviewed: Historical Data, Nursing Documentation, Vital Signs Vital Signs: Last Vital Signs Temp 97.6 F 06/29/18 11:34 Pulse 96 H 06/29/18 11:34 Resp 18 06/29/18 11:34 BP 148/83 06/29/18 11:34 Pulse Ox 100 06/29/18 11:34 - Medical History PMH: Arthritis, HTN, Hypothyroidism, Peripheral Edema (left arm and hand edema), End Stage Renal Disease, Chronic Kidney Disease Surgical History: Cholecystectomy - [facility] (05/27/18) ARTHROCENTESIS (06/24/14) DIALYSIS ARTERIOVENOSTOM (06/24/14) HEMODIALYSIS (06/24/14) RESECTION OF GALLBLADDER, PERCUTANEOUS ENDOSCOPIC APPROACH (01/26/18) VENOUS CATHETERIZATION FOR RENAL DIALYSIS (06/24/14) Family History: States: No Known Family Hx - Social History Hx Tobacco Use: No Hx Alcohol Use: No Hx Substance Use: No - Immunization History Hx Tetanus Toxoid Vaccination: No Hx Influenza Vaccination: No Hx Pneumococcal Vaccination: No Review Of Systems Constitutional: Positive for: Other (Fatigue). Negative for: Fever, Chills Gastrointestinal: Negative for: Nausea, Vomiting Physical Exam - Physical Exam Additional Physical Exam Comments: Constitutional: No acute distress. Head: Normocephalic. Atraumatic. Eyes: PERRL. ENT: Moist mucous membranes. Neck: Supple. Cardiovascular: Regular rate. Radial pulse 2+ bilaterally. Chest: No tenderness. Respiratory: Clear to auscultation bilaterally. GI: Soft. Nontender. Nondistended. Back: No CVA tenderness. Musculoskeletal: Pitting edema bilaterally to lower extremities. Skin: Right leg slight darkening associated with shininess Neurologic: Alert, no focal deficit. ED Course And Treatment - Laboratory Results Result Diagrams: 06/29/18 13:44 06/29/18 13:44 O2 Sat by Pulse Oximetry: 100 (RA) Pulse Ox Interpretation: Normal Medical Decision Making Medical Decision Making: Plan: CXR, UA, Blood work, Doppler CXR HISTORY: general weakness COMPARISON: No prior. FINDINGS: LUNGS: Poor inspiration with low lung volumes crowded bronchovascular markings and mild bibasilar atelectasis right greater than left. Possibility of some residual or developing right lower lobe infiltrate should be excluded with follow-up radiographs. Questionable mild pleural thickening or tiny effusion right CP angle region PLEURA: No significant pleural effusion identified, no pneumothorax apparent. CARDIOVASCULAR: .Heart remains enlarged. OSSEOUS STRUCTURES: No significant abnormalities. VISUALIZED UPPER ABDOMEN: Normal. OTHER FINDINGS: None. IMPRESSION: Poor inspiration with low lung volumes crowded bronchovascular markings and mild bibasilar atelectasis right greater than left. Possibility of some residual or developing right lower lobe infiltrate should be excluded with follow-up radiographs. Questionable mild pleural thickening or tiny effusion right CP angle region EKG NSR 80 bpm, no ST elevations. No peaked T waves. Consult placed for renal Darren. Dr. Lauren accepts patient for admission. marketing services vice president hand off given. Disposition Discussed With : Donell Lauren Jr. Doctor Will See Patient In The: Hospital - Disposition Disposition: HOSPITALIZED Disposition Time: 15:25 Condition: GUARDED Forms: [facility] ([place]) - POA Core Measure Indicators: Pneumonia - Clinical Impression Clinical Impression: Right leg swelling, Hyperkalemia, Pneumonia - Scribe Statement The provider has reviewed the documentation as recorded by the Naseem Saxena All medical record entries made by the Naseem were at my direction and personally dictated by me. I have reviewed the chart and agree that the record accurately reflects my personal performance of the history, physical exam, medi lefty decision making, and the department course for this patient. I have also personally directed, reviewed, and agree with the discharge instructions and disposition.
--- NOTE | 2018-06-29 14:09 | RAD ---
Date of service: 06/29/2018 HISTORY: general weakness COMPARISON: No prior. FINDINGS: LUNGS: Poor inspiration with low lung volumes crowded bronchovascular markings and mild bibasilar atelectasis right greater than left. Possibility of some residual or developing right lower lobe infiltrate should be excluded with follow-up radiographs. Questionable mild pleural thickening or tiny effusion right CP angle region PLEURA: No significant pleural effusion identified, no pneumothorax apparent. CARDIOVASCULAR: .Heart remains enlarged. OSSEOUS STRUCTURES: No significant abnormalities. VISUALIZED UPPER ABDOMEN: Normal. OTHER FINDINGS: None. IMPRESSION: Poor inspiration with low lung volumes crowded bronchovascular markings and mild bibasilar atelectasis right greater than left. Possibility of some residual or developing right lower lobe infiltrate should be excluded with follow-up radiographs. Questionable mild pleural thickening or tiny effusion right CP angle region
[2018-06-29 14:24] LABS: ALB/GLOB RATIO 1.1 (1.0-2.1); ALBUMIN 3.8 g/dL (3.5-5.0); BILIRUBIN,DIRECT 0.9 mg/dL (0.0-0.4); CALCIUM 9.1 mg/dl (8.6-10.4)
[2018-06-29] MEDS ORDERED: Albuterol 0.083% Inhal Sol (2.5 mg/3 mL) UD INH STA (15:19)
[2018-06-29] MEDS ORDERED: (Novolin R) Insulin Human Regular 100 units/ml vial IVP ONE (15:19)
[2018-06-29] MEDS ORDERED: Dextrose 50% SYRINGE Inj (50 ml) IV STA (15:19)
[2018-06-29] MEDS ORDERED: Sodium Chloride 0.9% 1,000 ML IV STA (15:19)
[2018-06-29] MEDS ORDERED: Sod Polystyrene Sulf 15 gm/60 ml Susp PO ONE (15:19)
[2018-06-29] MEDS ORDERED: Azithromycin 500 MG in Sodium Chloride 0.9% 250 ML IVPB STA (15:20)
[2018-06-29] MEDS ORDERED: (Novolin R) Insulin Human Regular 100 units/ml vial ONE (15:32)
[2018-06-29] MEDS ORDERED: Sod Polystyrene Sulf 15 gm/60 ml Susp ONE (15:32)
[2018-06-29] MEDS ORDERED: Azithromycin 500mg/250ML NS 500 MG/250 ML BAG IVPB ONE (15:33)
[2018-06-29] MEDS ORDERED: Sodium Chloride 0.9% 1,000 ML ONE (15:34)
[2018-06-29] MEDS ORDERED: Dextrose 50% SYRINGE Inj (50 ml) ONE (15:34)
[2018-06-29] MEDS ORDERED: Albuterol 0.083% Inhal Sol (2.5 mg/3 mL) UD ONE (15:40)
--- NOTE | 2018-06-29 18:26 | CP.PCM.HP ---
History of Present Illness - History of Present Illness History of Present Illness: Santy Thomas PGY-1, H&P for Dr. Lauren CC: abdominal pain, fatigue Translation via [facility] ([place] #[id number]) This is a 68 year old Ukrainian speaking male with a past medical history of Arthritis, HTN, hypothyroidism, ESRD on HD and systolic CHF, BPH presents to the ED complaining of abdominal pain with sob and fatigue for the past 4 days. Pt describes the abdominal pain as worsening, intermittent, "biting" pain in the umbilical area that has not let him sleep. He endorses constipation, "hard julio cesar." Pt states that the pain is usually a 4/10. Pt also reports worsening shortness of breath over the past 4 days, with some dizziness and fatigue. Pt denies falls, fever, chills, chest pain, blurry vision, headache, numbness or tingling, focal weakness, hematochezia, melena, vomiting, diarrhea. Pt states that he has had decreased urination for the past 2 months, and has some new onset burning on urination but he is unsure when it started. Recently admitted (05/27-05/30) for RLE cellulitis and treated with antibiotics. Discharged with Vancomycin 1g IV Q7D with dialysis and doxycycline 100 mg PO BID for 5 days. Pt reports his right lower extremity swelling, redness and pain is much improved. Pt noted to have creatinine 5.9, potassium 6.0 in the ED. EKG showed NSR at 80, no ST elevations, no peaked t waves as per ED. He received Insulin 7 units with 1 amp of D50, Duoneb x1, Kayaxalate 30 gm PO, NS 1L IV bolus. Pt developed 1 episode of vomiting after the medication, but states it was nonbloody, nonbilious. He has been having loose bowel movements since the kayaxalate treatment. CXR showed poor inspiration with low lung volumes bibasilar atelectasis; right greater than left. Possibility of some residual or developing RLL infiltrate. Questionable mild pleural thickening or tiny effusion of the right costophrenic angle region. Bilateral lower extremity venous dopplers were prelim negative bilaterally. Nephrology: Dr. Banks PMH: Arthritis, HTN, ESRD on HD MWF, hypothyroidism and systolic CHF last known EF 25-30%, BPH PSH: Left AV Fistula, 01/27/18 chronic cholecystitis s/p laparoscopic cholecystectomy Meds: see MAR. Pt unable to recall meds : "heart pill, prostate pill, aspirin, thyroid pill, blood pressure pill" Allergies: NKDA Family: sister due to renal failure. his brothers are healthy and well. Social: Patient admits to smoking, states he used to drink a lot of ETOH in [facility] but quit about 4-5 years ago, denies illicit drug use Present on Admission - Present on Admission Any Indicators Present on Admission: No Review of Systems - Review of Systems All systems: reviewed and no additional remarkable complaints except (as per HPI) Past Patient History - Infectious Disease Hx of Infectious Diseases: None - Past Medical History & Family History Past Medical History?: Yes - Past Social History Smoking Status: Former Smoker - CARDIAC Hx Hypertension: Yes Hx Peripheral Edema: Yes (left arm and hand edema) - PULMONARY Hx Respiratory Disorders: No - NEUROLOGICAL Hx Alzheimer's Disease: No Hx Dementia: No Hx Migraine: No Hx Multiple Sclerosis: No Hx Parkinson's Disease: No Hx Seizures: No Hx Transient Ischemic Attacks (TIA): No - HEENT Hx HEENT Problems: No - RENAL Hx Chronic Kidney Disease: Yes - ENDOCRINE/METABOLIC Hx Hypothyroidism: Yes - HEMATOLOGICAL/ONCOLOGICAL Hx Anemia: No Hx Human Immunodeficiency Virus (HIV): No Hx Sickle Cell Disease: No - INTEGUMENTARY Hx Dermatological Problems: No - MUSCULOSKELETAL/RHEUMATOLOGICAL Hx Arthritis: Yes - GENITOURINARY/GYNECOLOGICAL Hx Sexually Transmitted Disorders: No - PSYCHIATRIC Hx Substance Use: No - SURGICAL HISTORY Hx Cholecystectomy: Yes - ANESTHESIA Hx Anesthesia: Yes Hx Anesthesia Reactions: Yes Hx Malignant Hyperthermia: No Meds Allergies/Adverse Reactions: Allergies Allergy/AdvReac Type Severity Reaction Status Date / Time No Known Allergies Allergy Verified 06/29/18 11:33 Physical Exam - Constitutional Appears: Non-toxic, No Acute Distress - Head Exam Head Exam: ATRAUMATIC, NORMAL INSPECTION - Eye Exam Eye Exam: EOMI, Normal appearance - ENT Exam ENT Exam: Mucous Membranes Moist - Neck Exam Neck exam: Positive for: Normal Inspection - Respiratory Exam Respiratory Exam: Decreased Breath Sounds (at the bases). absent: Rales, Rhonchi, Wheezes, Respiratory Distress, Stridor - Cardiovascular Exam Cardiovascular Exam: +S1, +S2 Additional comments: (+) 1 + bilateral DPs, 3+ bilateral radial pulses - GI/Abdominal Exam GI & Abdominal Exam: Distended, Hernia (umbilical), Normal Bowel Sounds, Soft, Tenderness (mild diffuse tendernees; greatest in the periumbilical area; (+) mild suprapubic tenderness). absent: Rebound, Rigid - Extremities Exam Extremities exam: Positive for: normal capillary refill, pedal edema (2+ pitting edema bilaterally to the knees). Negative for: calf tenderness - Back Exam Back exam: NORMAL INSPECTION. absent: CVA tenderness (L), CVA tenderness (R) - Neurological Exam Neurological exam: Alert, Oriented x3 - Psychiatric Exam Psychiatric exam: Normal Affect, Normal Mood - Skin Skin Exam: Dry, Normal Color, Warm Additional comments: (+) right lower extremity erythema, nontender, not warm; improving cellulitis (+) left av fistula Results - Vital Signs Recent Vital Signs: Last Vital Signs Temp 97.6 F 06/29/18 16:53 Pulse 84 06/29/18 16:53 Resp 20 06/29/18 16:53 BP 112/76 06/29/18 16:53 Pulse Ox 100 06/29/18 16:53 - Labs Result Diagrams: 06/29/18 13:44 06/29/18 13:44 Labs: Laboratory Results - last 24 hr 06/29/18 06/29/18 06/29/18 13:44 13:44 17:24 WBC 5.7 RBC 3.95 L Hgb 12.1 Hct 36.9 MCV 93.3 D MCH 30.6 MCHC 32.8 L RDW 17.8 H Plt Count 127 L MPV 8.9 Neut % (Auto) 65.1 Lymph % (Auto) 19.6 L [place] % (Auto) 10.0 Eos % (Auto) 3.9 Baso % (Auto) 1.4 Neut # (Auto) 3.7 Lymph # (Auto) 1.1 [place] # (Auto) 0.6 Eos # (Auto) 0.2 Baso # (Auto) 0.1 Sodium 137 Potassium 6.0 H Chloride 94 L Carbon Dioxide 26 Anion Gap 23 H BUN 49 H Creatinine 5.9 H Est GFR ( Amer) 12 Est GFR (Non-Af Amer) 10 POC Glucose (mg/dL) 94 Random Glucose 80 Calcium 9.1 Phosphorus 4.1 Magnesium 2.4 H Total Bilirubin 1.2 Direct Bilirubin 0.9 H AST 57 ALT 8 L D Alkaline Phosphatase 177 H D Total Protein 7.2 Albumin 3.8 Globulin 3.3 Albumin/Globulin Ratio 1.1 Lipase 141 Assessment & Plan - Assessment and Plan (Free Text) Assessment: Assessment: 68 yr male w/ PMHx Arthritis, HTN, hypothyroidism, ESRD on HD and systolic CHF, comes to ED for abdominal pain, fatigue, sob Plan: Pneumonia - patient is afebrile, no leukocytosis - CXR showed poor inspiration with low lung volumes bibasilar atelectasis; right greater than left. Possibility of some residual or developing RLL infiltrate. Questionable mild pleural thickening or tiny effusion of the right costophrenic angle region. - Pt received Ceftriaxone 1g IVPB and Azithromycin 500 mg IVPB x1 in the ED - f/u am labs, blood culture x2, procalcitonin Abdominal pain; fluid overload ascites vs UTI vs constipation - will receive dialysis today - f/u UA, urine culture and sensitivity ESRD on HD M,W,F - Pt noted to have creatinine 5.9, potassium 6.0 in the ED. - EKG showed NSR at 80, no ST elevations, no peaked t waves as per ED. - He received Insulin 7 units with 1 amp of D50, Duoneb x1, Kayaxalate 30 gm PO, NS 1L IV bolus. - Nephro consulted, Dr. Banks, recs appreciated -pt consented for dialysis, and will be dialyzed today - Patient appears fluid overloaded on PE (ascites, lower extremity edema) - continue home medications - Calcium Acetate 667mg PO ACHS Recently admitted (05/27-05/30) for RLE cellulitis and treated with antibiotics. - Discharged with Vancomycin 1g IV Q7D with dialysis and doxycycline 100 mg PO BID for 5 days. - Pt reports his right lower extremity swelling, redness and pain is much improved. - bilateral lower extremity venous dopplers are prelim negative for DVT (f/u offical report) Hx of BPH - Continue home Flomax 0.4mg PO daily - f/u bladder scan to r/o urinary retention Hx of Systolic CHF - ECHO 02/15/18: LVEF 25-30%, systolic function severely impaired. Moderate Pulm HTN and Tricuspid regurg -continue home medications - Aspirin 81mg PO daily - Carvedilol 6.25mg PO BID (on hold due to how blood pressure) - Enalapril Maleate 2.5mg PO daily (on hold due to low blood pressure) Hypothyroidism - continue home Synthroid 125mcg PO daily History of heavy alcohol use Patient quit 4-5 years ago-> heavy use, does not smell like alcohol on exam Abdominal US (02/15/18): stable limited abdomen ultrasound status post prior cholecystectomy. Normal CBD caliber. No prominent intrahepatic biliary dilatation. partial imaging of the pancreas and marked right renal atrophy again evident PPX/Diet - Pepcid 20mg PO daily - Renal Diet Case discussed and reviewed with attending, Dr. Lauren All medical management as per Dr. Leonidas Thomas PGY-1
[2018-06-29 22:56] LABS: SQUAMOUS EPITHIAL < 1 /hpf (0-5); URINE BACTERIA RARE (<OCC); URINE BILIRUBIN NEGATIVE (NEGATIVE); URINE BLOOD NEGATIVE (NEGATIVE); URINE CLARITY Hazy (Clear); URINE COLOR Yellow (YELLOW); URINE GLUCOSE (UA) 1+ mg/dL (Normal); URINE LEUKOCYTE ESTERASE NEG Leu/uL (Negative); URINE PROTEIN 3+ mg/dL (NEGATIVE); URINE UROBILINOGEN NORMAL mg/dL (0.2-1.0)
[2018-06-30] MEDS: Levothyroxine 125 MCG TAB PO SCH (06:03)
[2018-06-30 06:25] LABS: INR 1.4; PROTHROMBIN TIME 15.2 SECONDS (9.7-12.2)
[2018-06-30 06:49] LABS: ALB/GLOB RATIO 1.2 (1.0-2.1); ALBUMIN 3.5 g/dL (3.5-5.0); CALCIUM 8.9 mg/dl (8.6-10.4)
[2018-06-30 07:53] LABS: BASO # 0.1 K/uL (0.0-0.2); BASO % 1.2 % (0.0-2.0); EOS # 0.2 K/uL (0.0-0.7); EOS % 2.9 % (0.0-4.0); HEMOGLOBIN 11.6 g/dL (12.0-18.0); LYMPH # 1.1 K/uL (1.0-4.3); LYMPH % 17.8 % (20.0-40.0); MEAN CELL VOLUME 92.7 fL (80.0-94.0); MEAN CORPUSCULAR HEMOGLOBIN 30.9 pg (27.0-31.0); MEAN CORPUSCULAR HGB CONC 33.3 g/dL (33.0-37.0); MEAN PLATELET VOLUME 9.3 fL (7.2-11.7); MONO # 0.5 K/uL (0.0-0.8); MONO % 9.1 % (0.0-10.0); NEUT # 4.2 K/uL (1.8-7.0); NRBC % 0.2 % (0.0-2.0); RBC 3.76 Mil/uL (4.40-5.90); RED CELL DISTRIBUTION WIDTH 17.4 % (11.5-14.5); WHITE BLOOD COUNT 6.1 K/uL (4.8-10.8)
[2018-06-30] MEDS: Pantoprazole 20 mg EC Tab PO SCH (09:25)
--- NOTE | 2018-06-30 09:47 | CP.PCM.CON ---
History of Present Illness - History of Present Illness History of Present Illness: This is a 68 year old Faroese speaking male with a past medical history of Arthritis, HTN, hypothyroidism, ESRD on HD and systolic CHF, BPH presents to the ED complaining of abdominal pain with sob and fatigue for the past 4 days. Also c/o constipation. Points to lower abdomen and umbilical area Missed HD yesterday, was emergently dialyzed in hospital. Was also treated medically for hyperkalemia including kayexelate recent hospitalization in 06/09 for RLE cellulitis, improved. Recently admitted (05/27-05/30) for RLE cellulitis and treated with antibiotics. Discharged with Vancomycin 1g IV Q7D with dialysis and doxycycline 100 mg PO BID for 5 days. Pt reports his right lower extremity swelling, redness and pain is much improved. also, prior hospitalization for similar symptoms 2 months ago, following lap cholecystectomy. PMH: Arthritis, HTN, ESRD on HD MWF, hypothyroidism and systolic CHF last known EF 25-30%, BPH PSH: Left AV Fistula, 01/27/18 chronic cholecystitis s/p laparoscopic cholecystectomy Meds: see NOV. Pt unable to recall meds : "heart pill, prostate pill, aspirin, thyroid pill, blood pressure pill" Allergies: NKDA Family: sister due to renal failure. his brothers are healthy and well. Social: Patient admits to smoking, states he used to drink a lot of ETOH in [facility] but quit about 4-5 years ago, denies illicit drug use Review of Systems - Review of Systems All systems: reviewed and no additional remarkable complaints except (as per HPI) Past Patient History - Infectious Disease Hx of Infectious Diseases: None - Past Medical History & Family History Past Medical History?: Yes - Past Social History Smoking Status: Former Smoker - CARDIAC Hx Hypertension: Yes Hx Peripheral Edema: Yes (left arm and hand edema) - PULMONARY Hx Respiratory Disorders: No - NEUROLOGICAL Hx Alzheimer's Disease: No Hx Dementia: No Hx Migraine: No Hx Multiple Sclerosis: No Hx Parkinson's Disease: No Hx Seizures: No Hx Transient Ischemic Attacks (TIA): No - HEENT Hx HEENT Problems: No - RENAL Hx Chronic Kidney Disease: Yes - ENDOCRINE/METABOLIC Hx Hypothyroidism: Yes - HEMATOLOGICAL/ONCOLOGICAL Hx Anemia: No Hx Human Immunodeficiency Virus (HIV): No Hx Sickle Cell Disease: No - INTEGUMENTARY Hx Dermatological Problems: No - MUSCULOSKELETAL/RHEUMATOLOGICAL Hx Falls: No - GENITOURINARY/GYNECOLOGICAL Hx Sexually Transmitted Disorders: No - PSYCHIATRIC Hx Substance Use: No - SURGICAL HISTORY Hx Cholecystectomy: Yes - ANESTHESIA Hx Anesthesia: Yes Hx Anesthesia Reactions: Yes Hx Malignant Hyperthermia: No Has any member of the family had a problem w/ anesthesia?: Yes Meds Allergies/Adverse Reactions: Allergies Allergy/AdvReac Type Severity Reaction Status Date / Time No Known Allergies Allergy Verified 06/29/18 11:33 - Medications Medications: Current Medications Aspirin (Ecotrin) 81 mg PO DAILY [facility] Last Admin: 06/30/18 09:26 Dose: 81 mg Calcium Acetate (Phoslo) 667 mg PO ACHS [facility] Last Admin: 06/30/18 07:30 Dose: 667 mg Carvedilol (Coreg) 6.25 mg PO BID [facility] Last Admin: 06/30/18 09:25 Dose: 6.25 mg Enalapril Maleate (Vasotec) 2.5 mg PO DAILY [facility] Last Admin: 06/30/18 09:26 Dose: 2.5 mg Heparin Sodium (Porcine) (Heparin) 5,000 units SC Q12 [facility] Levothyroxine Sodium (Synthroid) 125 mcg PO DAILY@0630 [facility] Last Admin: 06/30/18 06:03 Dose: 125 mcg Pantoprazole Sodium (Protonix Ec Tab) 20 mg PO DAILY [facility] Last Admin: 06/30/18 09:25 Dose: 20 mg Tamsulosin HCl (Flomax) 0.4 mg PO DAILY [facility] Last Admin: 06/30/18 09:25 Dose: 0.4 mg Physical Exam - Constitutional Appears: Non-toxic, No Acute Distress, Chronically Ill - Head Exam Head Exam: NORMAL INSPECTION, NORMOCEPHALIC - Eye Exam Eye Exam: Normal appearance, PERRL - ENT Exam ENT Exam: Mucous Membranes Moist, Normal Exam - Neck Exam Neck exam: Positive for: Normal Inspection - Respiratory Exam Respiratory Exam: Decreased Breath Sounds, NORMAL BREATHING PATTERN - Cardiovascular Exam Cardiovascular Exam: REGULAR RHYTHM, RRR - GI/Abdominal Exam GI & Abdominal Exam: Distended, Normal Bowel Sounds, Soft - Extremities Exam Extremities exam: Positive for: normal inspection (lue avf) - Neurological Exam Neurological exam: Alert, Oriented x3 - Skin Skin Exam: Normal Color, Warm Results - Vital Signs Recent Vital Signs: Last Vital Signs Temp 97.9 F 06/30/18 07:00 Pulse 89 06/30/18 07:30 Resp 20 06/30/18 07:00 BP 130/77 06/30/18 09:26 Pulse Ox 97 06/30/18 07:00 - Labs Result Diagrams: 06/30/18 06:08 06/30/18 06:08 Labs: Laboratory Results - last 24 hr 06/29/18 06/29/18 06/29/18 13:44 13:44 17:24 WBC 5.7 RBC 3.95 L Hgb 12.1 Hct 36.9 MCV 93.3 D MCH 30.6 MCHC 32.8 L RDW 17.8 H Plt Count 127 L MPV 8.9 Neut % (Auto) 65.1 Lymph % (Auto) 19.6 L [place] % (Auto) 10.0 Eos % (Auto) 3.9 Baso % (Auto) 1.4 Neut # (Auto) 3.7 Lymph # (Auto) 1.1 [place] # (Auto) 0.6 Eos # (Auto) 0.2 Baso # (Auto) 0.1 PT INR APTT Sodium 137 Potassium 6.0 H Chloride 94 L Carbon Dioxide 26 Anion Gap 23 H BUN 49 H Creatinine 5.9 H Est GFR ( Amer) 12 Est GFR (Non-Af Amer) 10 POC Glucose (mg/dL) 94 Random Glucose 80 Calcium 9.1 Phosphorus 4.1 Magnesium 2.4 H Total Bilirubin 1.2 Direct Bilirubin 0.9 H AST 57 ALT 8 L D Alkaline Phosphatase 177 H D Total Protein 7.2 Albumin 3.8 Globulin 3.3 Albumin/Globulin Ratio 1.1 Lipase 141 Urine Color Urine Clarity Urine pH Ur Specific [place] Urine Protein Urine Glucose (UA) Urine Ketones Urine Blood Urine Nitrate Urine Bilirubin Urine Urobilinogen Ur Leukocyte Esterase Urine WBC (Auto) Urine RBC (Auto) Ur Squamous Epith Cells Urine Bacteria Hep Bs Antigen 06/29/18 06/29/18 06/30/18 22:39 22:50 06:08 WBC 6.1 RBC 3.76 L Hgb 11.6 L Hct 34.9 L MCV 92.7 MCH 30.9 MCHC 33.3 RDW 17.4 H Plt Count 134 MPV 9.3 Neut % (Auto) 69.0 Lymph % (Auto) 17.8 L [place] % (Auto) 9.1 Eos % (Auto) 2.9 Baso % (Auto) 1.2 Neut # (Auto) 4.2 Lymph # (Auto) 1.1 [place] # (Auto) 0.5 Eos # (Auto) 0.2 Baso # (Auto) 0.1 PT INR APTT Sodium Potassium Chloride Carbon Dioxide Anion Gap BUN Creatinine Est GFR ( Amer) Est GFR (Non-Af Amer) POC Glucose (mg/dL) Random Glucose Calcium Phosphorus Magnesium Total Bilirubin Direct Bilirubin AST ALT Alkaline Phosphatase Total Protein Albumin Globulin Albumin/Globulin Ratio Lipase Urine Color Yellow Urine Clarity Hazy Urine pH 8.0 Ur Specific [place] 1.012 Urine Protein 3+ H Urine Glucose (UA) 1+ H Urine Ketones Negative Urine Blood Negative Urine Nitrate Negative Urine Bilirubin Negative Urine Urobilinogen Normal Ur Leukocyte Esterase Neg Urine WBC (Auto) 8 H Urine RBC (Auto) 1 Ur Squamous Epith Cells < 1 Urine Bacteria Rare Hep Bs Antigen Negative 06/30/18 06/30/18 06:08 06:08 WBC RBC Hgb Hct MCV MCH MCHC RDW Plt Count MPV Neut % (Auto) Lymph % (Auto) [place] % (Auto) Eos % (Auto) Baso % (Auto) Neut # (Auto) Lymph # (Auto) [place] # (Auto) Eos # (Auto) Baso # (Auto) PT 15.2 H INR 1.4 APTT 30 Sodium 137 Potassium 4.8 Chloride 98 Carbon Dioxide 27 Anion Gap 16 BUN 29 H Creatinine 4.2 H Est GFR ( Amer) 17 Est GFR (Non-Af Amer) 14 POC Glucose (mg/dL) Random Glucose 89 Calcium 8.9 Phosphorus 3.3 Magnesium 2.1 Total Bilirubin 1.0 Direct Bilirubin AST 55 ALT 21 D Alkaline Phosphatase 155 H Total Protein 6.5 Albumin 3.5 Globulin 3.0 Albumin/Globulin Ratio 1.2 Lipase Urine Color Urine Clarity Urine pH Ur Specific [place] Urine Protein Urine Glucose (UA) Urine Ketones Urine Blood Urine Nitrate Urine Bilirubin Urine Urobilinogen Ur Leukocyte Esterase Urine WBC (Auto) Urine RBC (Auto) Ur Squamous Epith Cells Urine Bacteria Hep Bs Antigen Assessment & Plan (1) Hyperkalemia Status: Acute (2) Abdominal pain Status: Acute (3) ESRD (end stage renal disease) Status: Acute (4) Anemia Status: Chronic - Assessment and Plan (Free Text) Assessment: maintain hd mwf bp acceptable hgb at goal, chong w/ hd check phos
--- NOTE | 2018-06-30 14:45 | CP.PCM.PN ---
Subjective - Date & Time of Evaluation Date of Evaluation: 06/30/18 Time of Evaluation: 07:45 - Subjective Subjective: PGY-[address] Lauren Patient is seen and examined at bedside. Patient states feeling much better after dialysis was done last night around 9pm. Patient deneis shortness of breath or chest pain, denies headaches or dizziness. Patient had a bowel movements but still describes it as hard "boiled egg" that come out in small q uantities. Patient states his right leg is slightly swollen. Patient is tolerating diet. Objective - Vital Signs/Intake and Output Vital Signs (last 24 hours): Temp Pulse Resp BP Pulse Ox 97.9 F 89 20 130/77 97 06/30/18 07:00 06/30/18 07:30 06/30/18 07:00 06/30/18 09:26 06/30/18 07:00 - Medications Medications: Current Medications Aspirin (Ecotrin) 81 mg PO DAILY [facility] Last Admin: 06/30/18 09:26 Dose: 81 mg Calcium Acetate (Phoslo) 667 mg PO ACHS [facility] Last Admin: 06/30/18 12:12 Dose: 667 mg Carvedilol (Coreg) 6.25 mg PO BID [facility] Last Admin: 06/30/18 09:25 Dose: 6.25 mg Enalapril Maleate (Vasotec) 2.5 mg PO DAILY [facility] Last Admin: 06/30/18 09:26 Dose: 2.5 mg Heparin Sodium (Porcine) (Heparin) 5,000 units SC Q12 [facility] Last Admin: 06/30/18 12:13 Dose: 5,000 units Lactulose (Enulose) 20 gm PO Q2 [facility] Last Admin: 06/30/18 14:05 Dose: 20 gm Levothyroxine Sodium (Synthroid) 125 mcg PO DAILY@0630 [facility] Last Admin: 06/30/18 06:03 Dose: 125 mcg Pantoprazole Sodium (Protonix Ec Tab) 20 mg PO DAILY [facility] Last Admin: 06/30/18 09:25 Dose: 20 mg Tamsulosin HCl (Flomax) 0.4 mg PO DAILY [facility] Last Admin: 06/30/18 09:25 Dose: 0.4 mg - Labs Labs: 06/30/18 06:08 06/30/18 06:08 PT 15.2 SECONDS (9.7-12.2) H 06/30/18 06:08 INR 1.4 06/30/18 06:08 APTT 30 SECONDS (21-34) 06/30/18 06:08 - Constitutional Appears: Well, Non-toxic, No Acute Distress - Head Exam Head Exam: ATRAUMATIC, NORMAL INSPECTION, NORMOCEPHALIC - Eye Exam Eye Exam: EOMI, Normal appearance - ENT Exam ENT Exam: Mucous Membranes Moist, Normal Exam - Neck Exam Neck Exam: Full ROM, Normal Inspection - Respiratory Exam Respiratory Exam: Clear to Ausculation Bilateral, NORMAL BREATHING PATTERN - Cardiovascular Exam Cardiovascular Exam: REGULAR RHYTHM, +S1, +S2, Murmur Additional comments: aortic systolic murmur, grade II - GI/Abdominal Exam GI & Abdominal Exam: Distended, Soft, Normal Bowel Sounds. absent: Tenderness - Extremities Exam Extremities Exam: Full ROM, Normal Inspection Additional comments: right lower extremity erythema, improving cellulitis - Back Exam Back Exam: Full ROM, NORMAL INSPECTION - Neurological Exam Neurological Exam: Alert, Awake, Oriented x3 - Psychiatric Exam Psychiatric exam: Normal Affect, Normal Mood - Skin Skin Exam: Dry, Intact, Normal Color, Warm Assessment and Plan - Assessment and Plan (Free Text) Plan: r/o Pneumonia - patient continue to be afebrile, no leukocytosis today 6.1 - CXR showed poor inspiration with low lung volumes bibasilar atelectasis; right greater than left. Possibility of some residual or developing RLL infiltrate. Questionable mild pleural thickening or tiny effusion of the right costophrenic angle region. - Pt received Ceftriaxone 1g IVPB and Azithromycin 500 mg IVPB x1 in the ED - f/u am labs, blood culture x2, procalcitonin - pending Abdominal pain; UTI vs constipation - dialysis yesterday - continues to be constipated - Lactulose 20gm solution Q2hrs until having a bowel movement - f/u UA, urine culture and sensitivity ESRD on HD M,W,F - creatinine today is 4.2 from 5.9, BUN is 29 from 49 - EKG showed NSR at 80, no ST elevations, no peaked t waves as per ED. - U/A Protein D/C - ED: He received Insulin 7 units with 1 amp of D50, Duoneb x1, Kayaxalate 30 gm PO, NS 1L IV bolus. - Nephro consulted, Dr. Banks, recs appreciated -follow up recs - maintain HD M-W-F - Patient appears fluid overloaded on PE (ascites, lower extremity edema) - continue home medications - Calcium Acetate 667mg PO ACHS Patient to go for HD tomorrow. Recently admitted (05/27-05/30) for RLE cellulitis and treated with antibiotics. - Discharged with Vancomycin 1g IV Q7D with dialysis and doxycycline 100 mg PO BID for 5 days. - Pt reports his right lower extremity swelling, redness and pain is much improved. - bilateral lower extremity venous dopplers are prelim negative for DVT (f/u offical report) Hx of BPH - Continue home Flomax 0.4mg PO daily Hx of Systolic CHF - ECHO 02/15/18: LVEF 25-30%, systolic function severely impaired. Moderate Pulm HTN and Tricuspid regurg -continue home medications - Aspirin 81mg PO daily - Carvedilol 6.25mg PO BID (on hold due to how blood pressure) - Enalapril Maleate 2.5mg PO daily (on hold due to low blood pressure) Hypothyroidism - continue home Synthroid 125mcg PO daily History of heavy alcohol use Patient quit 4-5 years ago-> heavy use, does not smell like alcohol on exam Abdominal US (02/15/18): stable limited abdomen ultrasound status post prior cholecystectomy. Normal CBD caliber. No prominent intrahepatic biliary dilatation. partial imaging of the pancreas and marked right renal atrophy again evident PPX/Diet - Pepcid 20mg PO daily - Renal Diet plan discussed with Dr Lauren. Management as per Dr Leonidas Grimm, PGY-1
[2018-07-01] MEDS: Levothyroxine 125 MCG TAB PO SCH (05:56)
[2018-07-01 07:00] LABS: ALB/GLOB RATIO 1.1 (1.0-2.1); ALBUMIN 3.3 g/dL (3.5-5.0); CALCIUM 9.1 mg/dl (8.6-10.4)
[2018-07-01 07:12] LABS: BASO # 0.1 K/uL (0.0-0.2); BASO % 1.2 % (0.0-2.0); EOS # 0.3 K/uL (0.0-0.7); EOS % 5.7 % (0.0-4.0); HEMOGLOBIN 11.4 g/dL (12.0-18.0); LYMPH # 1.4 K/uL (1.0-4.3); LYMPH % 26.9 % (20.0-40.0); MEAN CELL VOLUME 93.1 fL (80.0-94.0); MEAN CORPUSCULAR HEMOGLOBIN 30.9 pg (27.0-31.0); MEAN CORPUSCULAR HGB CONC 33.2 g/dL (33.0-37.0); MEAN PLATELET VOLUME 9.2 fL (7.2-11.7); MONO # 0.5 K/uL (0.0-0.8); MONO % 10.4 % (0.0-10.0); NEUT # 2.8 K/uL (1.8-7.0); NEUT % 55.8 % (50.0-75.0); RBC 3.71 Mil/uL (4.40-5.90); RED CELL DISTRIBUTION WIDTH 17.5 % (11.5-14.5); WHITE BLOOD COUNT 5.1 K/uL (4.8-10.8)
--- NOTE | 2018-07-01 08:08 | CARD ---
APPROVED REPORT Date of service: 06/29/2018 EKG Measurement Heart [id number] <Conclusion> Normal sinus rhythm Pulmonary disease pattern Left anterior fascicular block Prolonged QT Abnormal ECG
--- NOTE | 2018-07-01 11:59 | VASCLAB ---
Date of service: 06/29/2018 PROCEDURE: Lower Extremity Venous Duplex Exam. HISTORY: Leg edema PRIORS: None. TECHNIQUE: Bilateral common femoral, femoral, popliteal and posterior tibial, peroneal and great saphenous veins were evaluated. Flow was assessed with color Doppler, compressibility, assessment of phasic flow and augmentation response. Report prepared by Delilah Thompson, DELONTE, RVS FINDINGS: RIGHT: 1. Common Femoral Vein: 1.1. Compressibility - Fully compressible: Thrombus - None : Flow - Phasic: Augmentation -Normal: Reflux - None. 2. Femoral Vein: 2.1. Compressibility - Fully compressible: Thrombus - None : Flow - Phasic: Augmentation -Normal: Reflux - None. 3. Popliteal Vein: 3.1. Compressibility - Fully compressible: Thrombus - None : Flow - Phasic: Augmentation -Normal: Reflux - None. 4. Posterior Tibial Vein: 4.1. Compressibility - Fully compressible: Thrombus - None: Flow - Phasic: Augmentation -Normal: Reflux - None. 5. Peroneal Vein: 5.1. Compressibility - Fully compressible: Thrombus - None: Flow - Phasic: Augmentation -Normal: Reflux - None. 6. Great Saphenous Vein: 6.1. Compressibility - Fully compressible: Thrombus - None: Flow - Phasic: Augmentation - Normal: Reflux - None. LEFT: 1. Common Femoral Vein: 1.1. Compressibility - Fully compressible: Thrombus - None: Flow - Phasic: Augmentation -Normal: Reflux - None. 2. Femoral Vein: 2.1. Compressibility - Fully compressible: Thrombus - None: Flow - Phasic: Augmentation -Normal: Reflux - None. 3. Popliteal Vein: 3.1. Compressibility - Fully compressible: Thrombus - None : Flow - Phasic: Augmentation -Normal: Reflux - None. 4. Posterior Tibial Vein: 4.1. Compressibility - Fully compressible: Thrombus - None: Flow - Phasic: Augmentation -Normal: Reflux - None. 5. Peroneal Vein: 5.1. Compressibility - Fully compressible: Thrombus - None: Flow - Phasic: Augmentation -Normal: Reflux - None. 6. Great Saphenous Vein: 6.1. Compressibility - Fully compressible: Thrombus - None: Flow - Phasic: Augmentation - Normal: Reflux - None. OTHER FINDINGS: Right: None significant. Left: None significant. IMPRESSION: Right: No evidence of deep or superficial vein thrombosis of the right lower extremity. Normal valve function noted of the right side. Left: No evidence of deep or superficial vein thrombosis of the left lower extremity. Normal valve function noted of the left side.
[2018-07-01] MEDS: Pantoprazole 20 mg EC Tab PO SCH (13:47)
--- NOTE | 2018-07-01 14:35 | CP.PCM.PN ---
Subjective - Date & Time of Evaluation Date of Evaluation: 07/01/18 Time of Evaluation: 14:33 - Subjective Subjective: abdominal pain improved eating lunch tolerating HD cough+ no sob no chest pain no fever no rash no headache no arthralgias Objective - Vital Signs/Intake and Output Vital Signs (last 24 hours): Temp Pulse Resp BP Pulse Ox 82 F L 82 16 140/74 100 07/01/18 12:46 07/01/18 12:46 07/01/18 12:46 07/01/18 12:46 07/01/18 12:46 Intake and Output: 07/01/18 07/01/18 06:59 18:59 Intake Total 110 Balance 110 - Medications Medications: Current Medications Aspirin (Ecotrin) 81 mg PO DAILY [facility] Last Admin: 07/01/18 13:46 Dose: Not Given Calcium Acetate (Phoslo) 667 mg PO ACHS [facility] Last Admin: 07/01/18 13:46 Dose: 667 mg Carvedilol (Coreg) 6.25 mg PO BID [facility] Last Admin: 07/01/18 13:46 Dose: Not Given Enalapril Maleate (Vasotec) 2.5 mg PO DAILY [facility] Last Admin: 07/01/18 13:47 Dose: Not Given Heparin Sodium (Porcine) (Heparin) 5,000 units SC Q12 [facility] Last Admin: 07/01/18 13:46 Dose: Not Given Levothyroxine Sodium (Synthroid) 125 mcg PO DAILY@0630 [facility] Last Admin: 07/01/18 05:56 Dose: 125 mcg Pantoprazole Sodium (Protonix Ec Tab) 20 mg PO DAILY [facility] Last Admin: 07/01/18 13:47 Dose: Not Given Tamsulosin HCl (Flomax) 0.4 mg PO DAILY [facility] Last Admin: 07/01/18 13:46 Dose: Not Given - Labs Labs: 07/01/18 06:30 07/01/18 06:30 PT 15.2 SECONDS (9.7-12.2) H 06/30/18 06:08 INR 1.4 06/30/18 06:08 APTT 30 SECONDS (21-34) 06/30/18 06:08 - Constitutional Appears: No Acute Distress, Chronically Ill - Head Exam Head Exam: ATRAUMATIC, NORMAL INSPECTION - Eye Exam Eye Exam: EOMI - ENT Exam ENT Exam: Mucous Membranes Moist - Neck Exam Neck Exam: Full ROM. absent: Lymphadenopathy - Respiratory Exam Respiratory Exam: Decreased Breath Sounds. absent: Wheezes - Cardiovascular Exam Cardiovascular Exam: REGULAR RHYTHM. absent: Rubs - GI/Abdominal Exam GI & Abdominal Exam: Distended, Firm. absent: Tenderness - Extremities Exam Extremities Exam: absent: Pedal Edema - Neurological Exam Neurological Exam: Alert, Awake Assessment and Plan - Assessment and Plan (Free Text) Assessment: improved abdominal exam on AB for pneumonia maint HD to be continued
[2018-07-01 16:05] VITALS: BP 134/81; PULSE 84; RESP 20; TEMP 97.7; O2SAT 99
--- NOTE | 2018-07-01 22:49 | CP.PCM.DIS ---
Provider - Provider Date of Admission: 06/29/18 15:38 Attending physician: Donell Lauren Jr, MD Time Spent in preparation of Discharge (in minutes): 180 Diagnosis - Discharge Diagnosis (1) ESRD (end stage renal disease) Status: Acute (2) Hypertension Status: Chronic (3) Hypothyroidism Status: Chronic Hospital Course - Lab Results Lab Results: Micro Results 06/29/18 16:22 Blood-Venous Blood Culture - Preliminary NO GROWTH AFTER 48 HOURS 06/29/18 16:22 Blood-Venous Blood Culture - Preliminary NO GROWTH AFTER 48 HOURS 06/29/18 22:50 Urine Urine Culture - Final No Growth (<1,000 CFU/ML) Most Recent Lab Values WBC 5.1 K/uL (4.8-10.8) 07/01/18 06:30 RBC 3.71 Mil/uL (4.40-5.90) L 07/01/18 06:30 Hgb 11.4 g/dL (12.0-18.0) L 07/01/18 06:30 Hct 34.5 % (35.0-51.0) L 07/01/18 06:30 MCV 93.1 fL (80.0-94.0) 07/01/18 06:30 MCH 30.9 pg (27.0-31.0) 07/01/18 06:30 MCHC 33.2 g/dL (33.0-37.0) 07/01/18 06:30 RDW 17.5 % (11.5-14.5) H 07/01/18 06:30 Plt Count 142 K/uL (130-400) 07/01/18 06:30 MPV 9.2 fL (7.2-11.7) 07/01/18 06:30 Neut % (Auto) 55.8 % (50.0-75.0) 07/01/18 06:30 Lymph % (Auto) 26.9 % (20.0-40.0) 07/01/18 06:30 [place] % (Auto) 10.4 % (0.0-10.0) H 07/01/18 06:30 Eos % (Auto) 5.7 % (0.0-4.0) H 07/01/18 06:30 Baso % (Auto) 1.2 % (0.0-2.0) 07/01/18 06:30 Neut # (Auto) 2.8 K/uL (1.8-7.0) 07/01/18 06:30 Lymph # (Auto) 1.4 K/uL (1.0-4.3) 07/01/18 06:30 [place] # (Auto) 0.5 K/uL (0.0-0.8) 07/01/18 06:30 Eos # (Auto) 0.3 K/uL (0.0-0.7) 07/01/18 06:30 Baso # (Auto) 0.1 K/uL (0.0-0.2) 07/01/18 06:30 PT 15.2 SECONDS (9.7-12.2) H 06/30/18 06:08 INR 1.4 06/30/18 06:08 APTT 30 SECONDS (21-34) 06/30/18 06:08 Sodium 137 mmol/L (132-148) 07/01/18 06:30 Potassium 5.2 mmol/L (3.6-5.2) 07/01/18 06:30 Chloride 96 mmol/L (98-107) L 07/01/18 06:30 Carbon Dioxide 29 mmol/L (22-30) 07/01/18 06:30 Anion Gap 18 (10-20) 07/01/18 06:30 BUN 37 mg/dL (9-20) H 07/01/18 06:30 Creatinine 5.2 mg/dL (0.8-1.5) H 07/01/18 06:30 Est GFR ( Amer) 13 07/01/18 06:30 Est GFR (Non-Af Amer) 11 07/01/18 06:30 POC Glucose (mg/dL) 86 mg/dL (65-110) 07/01/18 06:38 Random Glucose 82 mg/dL (75-110) 07/01/18 06:30 Calcium 9.1 mg/dl (8.6-10.4) 07/01/18 06:30 Phosphorus 4.1 mg/dL (2.5-4.5) 07/01/18 06:30 Magnesium 2.3 mg/dL (1.6-2.3) 07/01/18 06:30 Total Bilirubin 1.0 mg/dL (0.2-1.3) 07/01/18 06:30 Direct Bilirubin 0.9 mg/dL (0.0-0.4) H 06/29/18 13:44 AST 45 U/L (17-59) 07/01/18 06:30 ALT 16 U/L (21-72) L D 07/01/18 06:30 Alkaline Phosphatase 121 U/L (38-126) 07/01/18 06:30 Total Protein 6.4 g/dL (6.3-8.3) 07/01/18 06:30 Albumin 3.3 g/dL (3.5-5.0) L 07/01/18 06:30 Globulin 3.0 gm/dL (2.2-3.9) 07/01/18 06:30 Albumin/Globulin Ratio 1.1 (1.0-2.1) 07/01/18 06:30 Lipase 141 U/L (23-300) 06/29/18 13:44 Procalcitonin 0.28 NG/ML (0.19-0.49) 06/30/18 06:08 Urine Color Yellow (YELLOW) 06/29/18 22:50 Urine Clarity Hazy (Clear) 06/29/18 22:50 Urine pH 8.0 (5.0-8.0) 06/29/18 22:50 Ur Specific David 1.012 (1.003-1.030) 06/29/18 22:50 Urine Protein 3+ mg/dL (NEGATIVE) H 06/29/18 22:50 Urine Glucose (UA) 1+ mg/dL (Normal) H 06/29/18 22:50 Urine Ketones Negative mg/dL (NEGATIVE) 06/29/18 22:50 Urine Blood Negative (NEGATIVE) 06/29/18 22:50 Urine Nitrate Negative (NEGATIVE) 06/29/18 22:50 Urine Bilirubin Negative (NEGATIVE) 06/29/18 22:50 Urine Urobilinogen Normal mg/dL (0.2-1.0) 06/29/18 22:50 Ur Leukocyte Esterase Neg Kye/uL (Negative) 06/29/18 22:50 Urine WBC (Auto) 8 /hpf (0-5) H 06/29/18 22:50 Urine RBC (Auto) 1 /hpf (0-3) 06/29/18 22:50 Ur Squamous Epith Cells < 1 /hpf (0-5) 06/29/18 22:50 Urine Bacteria Rare (<OCC) 06/29/18 22:50 Hep Bs Antigen Negative (NEGATIVE) 06/29/18 22:39 - Hospital Course Hospital Course: On admission: This is a 68 year old Irish speaking male with a past medical history of Arthritis, HTN, hypothyroidism, ESRD on HD and systolic CHF, BPH presents to the ED complaining of abdominal pain with sob and fatigue for the past 4 days. Pt describes the abdominal pain as worsening, intermittent, "biting" pain in the umbilical area that has not let him sleep. He endorses constipation, "hard julio cesar." Pt states that the pain is usually a 4/10. Pt also reports worsening shortness of breath over the past 4 days, with some dizziness and fatigue. Pt denies falls, fever, chills, chest pain, blurry vision, headache, numbness or tingling, focal weakness, hematochezia, melena, vomiting, diarrhea. Pt states that he has had decreased urination for the past 2 months, and has some new ons et burning on urination but he is unsure when it started. Recently admitted (05/27-05/30) for RLE cellulitis and treated with antibiotics. Discharged with Vancomycin 1g IV Q7D with dialysis and doxycycline 100 mg PO BID for 5 days. Pt reports his right lower extremity swelling, redness and pain is much improved. Pt noted to have creatinine 5.9, potassium 6.0 in the ED. EKG showed NSR at 80, no ST elevations, no peaked t waves as per ED. He received Insulin 7 units with 1 amp of D50, Duoneb x1, Kayaxalate 30 gm PO, NS 1L IV bolus. Pt developed 1 episode of vomiting after the medication, but states it was nonbloody, nonbilious. He has been having loose bowel movements since the kayaxalate treatment. CXR showed poor inspiration with low lung volumes bibasilar atelectasis; right greater than left. Possibility of some residual or developing RLL infiltrate. Questionable mild pleural thickening or tiny effusion of the right costophrenic angle region. Bilateral lower extremity venous dopplers were prelim negative bilaterally. On hospitalization: Patient was admited for shortness of breath and fatigue, to rule out pneumonia vs fluid overload due to diagnosis of ESRD on HD. EKG showed NSR at 80, no ST elevations, no peaked t waves as per ED. CXR showed poor inspiration with low lung volumes bibasilar atelectasis; right greater than left. Possibility of some residual or developing RLL infiltrate. Questionable mild pleural thickening or tiny effusion of the right costophrenic angle region. ED: He received Insulin 7 units with 1 amp of D50, Duoneb x1, Kayaxalate 30 gm PO, NS 1L IV bolus. Pt received Ceftriaxone 1g IVPB and Azithromycin 500 mg IVPB x1 in the ED. Pt noted to have creatinine 5.9, potassium 6.0 in the ED. Nephro consulted, Dr. Banks, pt consented for dialysis, and receive dialysis on 06/29/10. bilateral lower extremity venous dopplers are prelim negative for DVT. creatinine after dialysis was 4.2 from 5.9, BUN is 29 from 49. blood cultures and urine cultures were negative. For constipation, patient was given lactulose 20 gm solution every 2 hours until patient had a bowel movement. Patient was able to have a bowel movement. Patient reported feeling better with resolution of shortness of breath and chest pain after hemodialysis. Patient was restarted on home meds: Flomax 0.4mg PO daily. Aspirin 81mg PO daily. Synthroid 125mcg PO daily. HTN medications were held due to low blood pressure. the following prophylaxis was given to patient: -Pepcid 20mg PO daily, Renal Diet. On discharge: Patient received the following instructions: Patient is to continue getting hemodialysis MWF, please go to your center to receive you next dose this Friday. Please make an appointment with your butter fat tester Dr Banks for follow up after discharge from hospital and for medications. Please make an appointment to see him next week. You are receiving prescriptions for your home medications. Please follow up with your doctor outpatient to continue management of your medications. Patient can make an appointment with the neighborhood clinic here at [facility] to establish primary care. Please call the office for an appointment If any of your symptoms recur or worsen, please return to the ER this is a brief summary of patient's course of hospitalization. For more information, please refer to patient's EMR. - Date & Time of H&P Date of H&P: 06/29/18 Time of H&P: 18:25 Discharge Exam - Head Exam Head Exam: ATRAUMATIC, NORMAL INSPECTION - Eye Exam Eye Exam: EOMI, Normal appearance - ENT Exam ENT Exam: Mucous Membranes Moist, Normal Exam - Neck Exam Neck exam: Full Rom - Respiratory Exam Respiratory Exam: Clear to PA & Lateral, NORMAL BREATHING PATTERN, UNREMARKABLE. absent: Rales, Rhonchi, Wheezes - Cardiovascular Exam Cardiovascular Exam: REGULAR RHYTHM, +S1, +S2 - GI/Abdominal Exam GI & Abdominal Exam: Normal Bowel Sounds, Soft, Unremarkable. absent: Tenderness - Extremities Exam Extremities exam: full ROM Additional comments: right lower extremity improving cellulitis - Back Exam Back exam: FULL ROM, NORMAL INSPECTION - Neurological Exam Neurological exam: Alert, Oriented x3 - Psychiatric Exam Psychiatric exam: Normal Affect, Normal Mood - Skin Skin Exam: Dry, Intact, Normal Color, Warm Discharge Plan - Discharge Medications Prescriptions: Aspirin [Ecotrin] 81 mg PO DAILY #30 tabec Calcium Acetate [Phoslo] 667 mg PO ACHS #90 tab Carvedilol [Coreg] 6.25 mg PO BID #60 tab Enalapril Maleate [Vasotec] 2.5 mg PO DAILY #30 tab Levothyroxine [Synthroid] 125 mcg PO DAILY@0630 #30 tab Tamsulosin [Flomax] 0.4 mg PO DAILY #30 cap - Follow Up Plan Condition: GUARDED Disposition: HOME/ ROUTINE Instructions: Hyperkalemia (DC), Pneumonia, Adult (DC), Cellulitis (Skin Infection), Adult (DC), Calcium Acetate, Carvedilol, Enalapril, Levothyroxine, Tamsulosin, End Stage Kidney Disease (DC) Additional Instructions: Patient is to continue getting hemodialysis MWF, please go to your center to receive you next dose this Friday. Please make an appointment with your butter fat tester Dr Banks for follow up after discharge from hospital and for medications. Please make an appointment to see him next week. You are receiving prescriptions for your home medications. Please follow up with your doctor outpatient to continue management of your medications. Patient can make an appointment with the neighborhood clinic here at [facility] to establish primary care. Please call the office for an appointment If any of your symptoms recur or worsen, please return to the ER El paciente debe continuar recibiendo la hemodilisis [id number], vaya a rader centro para recibir la prxima dosis zander viernes. Nicholas ceferino lety con rader nefrlogo, el Dr. Banks, para realizar un seguimiento despus del donya hospitalaria y para los medicamentos. Por favor nicholas ceferino lety para verlo la prxima semana. Usted est recibiendo recetas para daniel medicamentos en el hogar. Por favor, nicholas un seguimiento con rader mdico ambulatorio para continuar con el manejo de daniel medicamentos. El paciente puede hacer ceferino lety con la clnica del vecindario aqu en el hospital Last para establecer la atencin primaria. Por favor llame a la oficina para ceferino lety Si alguno de daniel sntomas reaparece o empeora, vuelva a la chel de emergencias. Referrals: [facility] at [facility] [Outside] Robert Banks MD [Staff Provider] -
== END 2018-07-01 18:00 | disposition home or self-care (01) | DRG 291 ==
LOC: C.ER 11:19 → C.9E 15:38 → C.6T 16:54
PROVIDERS: ADMIT Internal Medicine; ATTEND Internal Medicine
PROC: 5A1D70Z Performance of Urinary Filtration, Intermittent, Less than 6 Hours Per Day (ICD-10-PCS; principal; 2018-06-29)
PROC: 5A1D70Z Performance of Urinary Filtration, Intermittent, Less than 6 Hours Per Day (ICD-10-PCS; 2018-07-01)
DX: I13.2 Hypertensive heart and chronic kidney disease with heart failure and with stage 5 chronic kidney disease, or end stage renal disease (principal); J18.9 Pneumonia, unspecified organism; N18.6 End stage renal disease; I50.22 Chronic systolic (congestive) heart failure; E87.5 Hyperkalemia; F17.200 Nicotine dependence, unspecified, uncomplicated; E03.9 Hypothyroidism, unspecified; K59.00 Constipation, unspecified; N40.0 Benign prostatic hyperplasia without lower urinary tract symptoms; Z79.4 Long term (current) use of insulin; Z99.2 Dependence on renal dialysis

== ENCOUNTER 2018-09-29 22:01 | Inpatient (IN) | payer OTHER ==
--- NOTE | 2018-09-29 22:33 | C.PDOC ---
History Of Present Illness 68 year old male presents to the ED c/o abdominal pain for the past week. Patient goes to dialysis on Friday, Friday and Friday. Patient states he vomited once today and is also having bowel movement. Patient denies fever, chills, nausea, vomit, diarrhea, headache, dizziness, CP, SOB, weakness, numbness. Time Seen by Provider: 09/29/18 22:32 Chief Complaint (Nursing): Abdominal Pain History Per: Patient History/Exam Limitations: no limitations Onset/Duration Of Symptoms: Days (week) Current Symptoms Are (Timing): Still Present Context: Other Severity: Moderate Pain Scale Rating Of: 4 Location Of Pain/Discomfort: Diffuse Radiation Of Pain To:: None Quality Of Discomfort: Dull, Pressure Associated Symptoms: Vomiting, Constipation. denies: Nausea, Diarrhea, Urinary Symptoms Exacerbating Factors: None Alleviating Factors: None Recent travel outside of the [place]: No Additional History Per: Patient Past Medical History Reviewed: Historical Data, Nursing Documentation, Vital Signs Vital Signs: Last Vital Signs Temp 98.1 F 09/29/18 22:05 Pulse 101 H 09/29/18 22:05 Resp 20 09/29/18 22:05 BP 152/90 H 09/29/18 22:05 Pulse Ox 97 09/29/18 22:05 - Medical History PMH: Arthritis, HTN, Hypothyroidism, Peripheral Edema (left arm and hand edema), End Stage Renal Disease, Chronic Kidney Disease Denies: Alzheimer's Disease, Anemia, Anxiety, Atrial Fibrillation, Bipolar Disorder, Cardia Arrhythmia, CHF, Crohn's Disease, Dementia, Depression, Diverticulitis, Fractures, Gastritis, Gall Bladder Disease, HIV, Hypercholesterolemia, Hyperthyroidism, Kidney Stones, Migraine, Mitral Valve Prolapse, Multiple Sclerosis, Osteoporosis, Paranoia, Parkinson's Disease, Post Traumatic Stress Disorder, Rheumatoid Arthritis, Schizophrenia, Seizures, Sickle Cell Disease, Sexually Transmitted Disease, TIA Surgical History: Cholecystectomy Denies: Appendectomy, CABG, Carotid Endarterectomy, Coronary Stent, Pacemaker, Tonsillectomy - [facility] (06/29/18) ARTHROCENTESIS (06/24/14) DIALYSIS ARTERIOVENOSTOM (06/24/14) HEMODIALYSIS (06/24/14) RESECTION OF GALLBLADDER, PERCUTANEOUS ENDOSCOPIC APPROACH (01/26/18) VENOUS CATHETERIZATION FOR RENAL DIALYSIS (06/24/14) Family History: States: Unknown Family Hx - Social History Hx Tobacco Use: No Hx Alcohol Use: No Hx Substance Use: No - Immunization History Hx Tetanus Toxoid Vaccination: No Hx Influenza Vaccination: No Hx Pneumococcal Vaccination: No Review Of Systems Constitutional: Negative for: Fever, Chills Cardiovascular: Negative for: Chest Pain Respiratory: Negative for: Shortness of Breath Gastrointestinal: Positive for: Nausea, Vomiting, Abdominal Pain. Negative for: Diarrhea Musculoskeletal: Negative for: Back Pain Skin: Negative for: Rash Neurological: Negative for: Headache, Dizziness Physical Exam - Physical Exam Appears: Non-toxic, No Acute Distress Skin: Warm, Dry Head: Normacephalic Eye(s): bilateral: Normal Inspection Oral Mucosa: Moist Throat: No Erythema, No Exudate Neck: Supple Chest: Symmetrical Cardiovascular: Rhythm Regular Respiratory: No Rales, No Rhonchi, No Wheezing Gastrointestinal/Abdominal: Soft, Tenderness (mildly diffuse ), Distention, No Guarding, No Rebound, Other (very tympanic to percussion) Back: Normal Inspection Extremity: Pedal Edema (bilateral ), Capillary Refill (< 2 seconds) Extremity: Left: Other (left upper arm AV fistula good bruit and thrill), Bilateral: Atraumatic, Normal Color And Temperature, Normal ROM Pulses: Left Radial: Normal, Right Radial: Normal, Left Dorsalis Pedis: Normal, Right Dorsalis Pedis: Normal Neurological/Psych: Oriented x3, Normal Speech, Normal Cognition Gait: Steady ED Course And Treatment - Laboratory Results Result Diagrams: 09/29/18 23:34 09/29/18 23:34 ECG: Interpreted By Me, Viewed By Ok ECG Rhythm: Sinus Rhythm (991), Nonspecific Changes (lad) O2 Sat by Pulse Oximetry: 97 (ON RA) Pulse Ox Interpretation: Normal - CT Scan/US CT abd/pelvis Other Rad Studies (CT/US): Read By Radiologist, Radiology Report Reviewed CT/US Interpretation: Date of service: 09/29/2018. PROCEDURE: CT Abdomen and Pelvis without intravenous contrast. HISTORY: Abdominal pain, constipation, esrd on hd. COMPARISON: 04/26/2018. TECHNIQUE: CT scan of the abdomen and pelvis was performed without administration of intravenous contrast. Oral contrast was not administered. Coronal and sagittal reformatted images were obtained. Radiation dose: Total exam DLP = 486.39 mGy-cm. This CT exam was performed using one or more of the following dose reduction techniques: Automated exposure control, adjustment of the mA and/or kV according to patient size, and/or use of iterative reconstruction technique. FINDINGS: LOWER THORAX : Moderate bilateral pleural effusions, larger on the right mild cardiomegaly. LIVER: Normal in size. No gross lesion or ductal dilatation. GALLBLADDER AND BILE DUCTS: Surgically absent. PANCREAS: Normal in size. No gross lesion or ductal dilatation. SPLEEN: Normal in size. There is a punctate nonspecific calcification anteriorly. ADRENALS: No discrete nodule. KIDNEYS AND URETERS: Severe bilateral renal cortical atrophy. Stable parapelvic cysts, greater on the left. VASCULATURE: No aortic aneurysm. There are aortic atherosclerotic calcifications present. BOWEL: The small bowel loops are normal in caliber. There is moderate amount of stool in the colon. There is scattered colonic diverticulosis without CT evidence for acute diverticulitis. APPENDIX: Normal appendix. PERITONEUM: There is large abdominal and pelvic ascites. No free air. LYMPH NODES: No enlarged lymph nodes. BLADDER: Decompressed. REPRODUCTIVE: There is mild enlargement of the prostate gland. BONES: No acute fracture. OTHER FINDINGS: There is a small sliding hiatal hernia. IMPRESSION: 1. Large abdominal and pelvic ascites. 2. Moderate pleural effusions, larger on the right. 3. Bilateral renal cortical atrophy. Redemonstration of parapelvic cysts, greater on the left. Progress Note: Plan: - CT abd/pelvis. - EKG. - Labs. - zofran 4 mg IVP Disposition Discussed With DrHolli: Donell Lauren Jr. Comment: accepted the pt on his service and took over the care at 3:15 AM Doctor Will See Patient In The: ED Counseled Patient/Family Regarding: Studies Performed, Diagnosis - Disposition Disposition: HOSPITALIZED Disposition Time: 22:33 Condition: FAIR Forms: [facility] [employer] (Pashto) - POA Present On Arrival: None - Clinical Impression Clinical Impression: ESRD (end stage renal disease) on dialysis, Abdominal pain, Ascites, Constipa tion - Scribe Statement The provider has reviewed the documentation as recorded by the Scribpeggy Murray All medical record entries made by the Scribe were at my direction and personally dictated by me. I have reviewed the chart and agree that the record accurately reflects my personal performance of the history, physical exam, medical decision making, and the department course for this patient. I have also personally directed, reviewed, and agree with the discharge instructions and disposition. Decision To Admit - Pt Status Changed To: Hospital Disposition Of: Inpatient - Admit Certification Admit to Inpatient:: After my assessment, the patient will require hospitalization for at least two midnights. This is because of the severity of symptoms shown, intensity of services needed, and/or the medical risk in this patient being treated as an outpatient. - InPatient: Physician Admission Certification:: After my assessment, the patient will require hospitalization for at least two midnights. This is because of the severity of symptoms shown, intensity of services needed, and/or the medical r isk in this patient being treated as an outpatient. - . Bed Request Type: Regular Admitting Physician: Donell Lauren Jr. Patient Diagnosis: ESRD (end stage renal disease) on dialysis, Abdominal pain, Ascites, Constipation
[2018-09-29 23:39] LABS: BASO # 0.1 K/uL (0.0-0.2); BASO % 1.5 % (0.0-2.0); EOS # 0.2 K/uL (0.0-0.7); EOS % 4.5 % (0.0-4.0); HEMOGLOBIN 11.9 g/dL (12.0-18.0); LYMPH % 19.1 % (20.0-40.0); MEAN CELL VOLUME 95.2 fL (80.0-94.0); MEAN CORPUSCULAR HEMOGLOBIN 31.6 pg (27.0-31.0); MEAN CORPUSCULAR HGB CONC 33.2 g/dL (33.0-37.0); MEAN PLATELET VOLUME 8.7 fL (7.2-11.7); MONO # 0.4 K/uL (0.0-0.8); MONO % 8.6 % (0.0-10.0); NEUT # 3.3 K/uL (1.8-7.0); NEUT % 66.3 % (50.0-75.0); NRBC % 0.1 % (0.0-2.0); RBC 3.77 Mil/uL (4.40-5.90); RED CELL DISTRIBUTION WIDTH 16.5 % (11.5-14.5)
[2018-09-29 23:47] LABS: INR 1.3; PROTHROMBIN TIME 13.9 SECONDS (9.7-12.2)
[2018-09-29 23:52] LABS: ALB/GLOB RATIO 1.2 (1.0-2.1); ALBUMIN 4.1 g/dL (3.5-5.0); CALCIUM 8.8 mg/dl (8.6-10.4)
--- NOTE | 2018-09-30 01:04 | CT ---
Date of service: 09/29/2018 PROCEDURE: CT Abdomen and Pelvis without intravenous contrast HISTORY: Abdominal pain, constipation, esrd on hd COMPARISON: 04/26/2018 TECHNIQUE: CT scan of the abdomen and pelvis was performed without administration of intravenous contrast. Oral contrast was not administered. Coronal and sagittal reformatted images were obtained. Radiation dose: Total exam DLP = 486.39 mGy-cm. This CT exam was performed using one or more of the following dose reduction techniques: Automated exposure control, adjustment of the mA and/or kV according to patient size, and/or use of iterative reconstruction technique. FINDINGS: LOWER THORAX: Moderate bilateral pleural effusions, larger on the right mild cardiomegaly. LIVER: Normal in size. No gross lesion or ductal dilatation. GALLBLADDER AND BILE DUCTS: Surgically absent. PANCREAS: Normal in size. No gross lesion or ductal dilatation. SPLEEN: Normal in size. There is a punctate nonspecific calcification anteriorly. ADRENALS: No discrete nodule. KIDNEYS AND URETERS: Severe bilateral renal cortical atrophy. Stable parapelvic cysts, greater on the left. VASCULATURE: No aortic aneurysm. There are aortic atherosclerotic calcifications present. BOWEL: The small bowel loops are normal in caliber. There is moderate amount of stool in the colon. There is scattered colonic diverticulosis without CT evidence for acute diverticulitis. APPENDIX: Normal appendix. PERITONEUM: There is large abdominal and pelvic ascites. No free air. LYMPH NODES: No enlarged lymph nodes. BLADDER: Decompressed. REPRODUCTIVE: There is mild enlargement of the prostate gland. BONES: No acute fracture. OTHER FINDINGS: There is a small sliding hiatal hernia. IMPRESSION: 1. Large abdominal and pelvic ascites. 2. Moderate pleural effusions, larger on the right. 3. Bilateral renal cortical atrophy. Redemonstration of parapelvic cysts, greater on the left.
[2018-09-30] MEDS: Levothyroxine 125 MCG TAB PO SCH (06:22)
--- NOTE | 2018-09-30 06:27 | CP.PCM.HP ---
History of Present Illness - History of Present Illness History of Present Illness: cc: Abdominal pain/diarrhea Patient is a 68 year old male with pmhx of ESRD(MWF), arthritis, HTN, hypothyroidism, systolic CHF, and BPH presenting to the ED with complaints of worsening abdominal distention and diarrhea x1 week. Patient reports BMs are soft and watery, consisting of black stools, with large egg sized clumps of whit e dough like matter. Patient reports increase in frequency of BMs, approximately 10 per day, with multiple awakenings at night. Pt reports never having received a colonoscopy or endoscopy. Patient denies headache, dizziness, chest pain, SOB pmhx: ESRD, HTN, hypothyroidism, CHF, BPH pshx: LAVF, cholecystectomy allergies: NKDA FamHx: denies history of cancers SocHx: former heavy 20+ yr drinker Present on Admission - Present on Admission Any Indicators Present on Admission: No Review of Systems - Constitutional Constitutional: Anorexia, Fatigue, Weakness - EENT Eyes: absent: Change in Vision - Cardiovascular Cardiovascular: absent: Chest Pain, Leg Edema - Respiratory Respiratory: Cough (1 day dry cough). absent: Dyspnea - Gastrointestinal Gastrointestinal: Abdominal Pain, Bloating, Cramping, Diarrhea, Early Satiety, Melena, Vomiting. absent: Hematochezia - Genitourinary Genitourinary: absent: Difficulty Urinating Past Patient History - Infectious Disease Hx of Infectious Diseases: None - Past Medical History & Family History Past Medical History?: Yes - Past Social History Smoking Status: Former Smoker - CARDIAC Hx Hypertension: Yes Hx Peripheral Edema: Yes (left arm and hand edema) - PULMONARY Hx Respiratory Disorders: No - NEUROLOGICAL Hx Neurological Disorder: No - HEENT Hx HEENT Problems: No - RENAL Hx Chronic Kidney Disease: Yes Hx Dialysis: Yes Date of Last Dialysis Treatment: 09/28/18 - ENDOCRINE/METABOLIC Hx Hypothyroidism: Yes - HEMATOLOGICAL/ONCOLOGICAL Hx Blood Disorders: No - INTEGUMENTARY Hx Dermatological Problems: No - MUSCULOSKELETAL/RHEUMATOLOGICAL Hx Arthritis: Yes Hx Falls: Yes - GASTROINTESTINAL Hx Gastrointestinal Disorders: No - GENITOURINARY/GYNECOLOGICAL Hx Genitourinary Disorders: No - PSYCHIATRIC Hx Psychophysiologic Disorder: No Hx Substance Use: Yes - SURGICAL HISTORY Hx Cholecystectomy: Yes - ANESTHESIA Hx Anesthesia: Yes Hx Anesthesia Reactions: Yes Hx Malignant Hyperthermia: No Meds Allergies/Adverse Reactions: Allergies Allergy/AdvReac Type Severity Reaction Status Date / Time No Known Allergies Allergy Verified 09/29/18 22:17 Physical Exam - Constitutional Appears: Non-toxic, No Acute Distress - Head Exam Head Exam: ATRAUMATIC, NORMAL INSPECTION, NORMOCEPHALIC - Eye Exam Eye Exam: EOMI, Normal appearance Pupil Exam: NORMAL ACCOMODATION, PERRL - ENT Exam ENT Exam: Mucous Membranes Dry, Normal Exam - Neck Exam Neck exam: Positive for: Normal Inspection - Respiratory Exam Respiratory Exam: NORMAL BREATHING PATTERN. absent: Respiratory Distress - Cardiovascular Exam Cardiovascular Exam: REGULAR RHYTHM, Systolic Murmur. absent: Tachycardia - GI/Abdominal Exam GI & Abdominal Exam: Distended, Normal Bowel Sounds, Soft. absent: Tenderness - Extremities Exam Extremities exam: Positive for: normal inspection, pedal pulses present. Negative for: calf tenderness, pedal edema - Neurological Exam Neurological exam: Alert, Oriented x3 - Psychiatric Exam Psychiatric exam: Normal Affect, Normal Mood - Skin Skin Exam: Dry, Intact, Normal Color, Warm Results - Vital Signs Recent Vital Signs: Last Vital Signs Temp 97.6 F 09/30/18 05:54 Pulse 90 09/30/18 05:54 Resp 18 09/30/18 05:54 BP 150/72 09/30/18 05:54 Pulse Ox 97 09/30/18 05:54 - Labs Result Diagrams: 09/29/18 23:34 09/29/18 23:34 Labs: Laboratory Results - last 24 hr 09/29/18 09/29/18 09/29/18 23:34 23:34 23:34 WBC 5.0 RBC 3.77 L Hgb 11.9 L Hct 35.9 MCV 95.2 H D MCH 31.6 H MCHC 33.2 RDW 16.5 H Plt Count 140 MPV 8.7 Neut % (Auto) 66.3 Lymph % (Auto) 19.1 L [place] % (Auto) 8.6 Eos % (Auto) 4.5 H Baso % (Auto) 1.5 Neut # (Auto) 3.3 Lymph # (Auto) 1.0 [place] # (Auto) 0.4 Eos # (Auto) 0.2 Baso # (Auto) 0.1 PT 13.9 H INR 1.3 APTT 30 Sodium 135 Potassium 5.4 H Chloride 91 L Carbon Dioxide 32 H Anion Gap 18 BUN 41 H Creatinine 5.4 H Est GFR ( Amer) 13 Est GFR (Non-Af Amer) 11 Random Glucose 95 Calcium 8.8 Total Bilirubin 1.2 AST 25 ALT 16 L Alkaline Phosphatase 157 H D Ammonia Total Protein 7.4 Albumin 4.1 Globulin 3.3 Albumin/Globulin Ratio 1.2 Lipase 230 09/30/18 01:34 WBC RBC Hgb Hct MCV MCH MCHC RDW Plt Count MPV Neut % (Auto) Lymph % (Auto) [place] % (Auto) Eos % (Auto) Baso % (Auto) Neut # (Auto) Lymph # (Auto) [place] # (Auto) Eos # (Auto) Baso # (Auto) PT INR APTT Sodium Potassium Chloride Carbon Dioxide Anion Gap BUN Creatinine Est GFR ( Amer) Est GFR (Non-Af Amer) Random Glucose Calcium Total Bilirubin AST ALT Alkaline Phosphatase Ammonia 29 Total Protein Albumin Globulin Albumin/Globulin Ratio Lipase Assessment & Plan - Assessment and Plan (Free Text) Assessment: 68 year old male w/ pmhx of HTN and ESRD admitted for evaluation and treatment of abdominal pain/distention/diarrhea Plan: Abdominal Distention/Diarrhea; r/o malignancy -requesting paracentesis of ascitic fluid with studies -f/u stool occult -antiemetic, zofran prn -GI consult, DR. Tay ESRD -HD MWF, HD today -resume home meds -Nephrology consult, Dr. Banks CHF -echo january 2018: LVEF 25%, systolic dysfunction HTN -continue home meds Hypothyroidism -continue home meds BPH -continue flomax Ppx -GI ppx, pepcid -VTE ppx, heparin case discussed with Dr. Leonidas Mcfadden, PGY-1
--- NOTE | 2018-09-30 09:40 | CP.PCM.CON ---
<Sen Yepez - Last Filed: 09/30/18 09:50> History of Present Illness - History of Present Illness History of Present Illness: GI Fellow PGY4, consult note. Patient is a 68M presenting with abdominal discomfort and distension. This abdominal distension has been progressively worsening for the last 15days. This is a new onset problem. He has never had a paracentesis. He has no known liver disease history but does admit 20 years of heavy drinking in the past in [facility]. Patient also has a history of sCHF. He is making urine and is taking diuretic regularly per patient. He states he has been having diarrhea intermittently x15 days with black stool. Denies NSAID use, Iron pills, peptobismol. No vomiting or BRBPR. Hb is stable PMHx - ESRD on HD, sCHF EF 25% PSHx - Fistula Left arm, cholecystectomy. No endoscopic history. FmHx - No GI related cancers SocHx - No current alcohol or tobacco use. Previous heavy Etoh User x 20yrs. Lives with son at home. 12pt ROS completed and negative except for above. Past Patient History - Infectious Disease Hx of Infectious Diseases: None - Past Medical History & Family History Past Medical History?: Yes - Past Social History Smoking Status: Former Smoker - CARDIAC Hx Hypertension: Yes Hx Peripheral Edema: Yes (left arm and hand edema) - PULMONARY Hx Respiratory Disorders: No - NEUROLOGICAL Hx Neurological Disorder: No - HEENT Hx HEENT Problems: No - RENAL Hx Chronic Kidney Disease: Yes Hx Dialysis: Yes Date of Last Dialysis Treatment: 09/28/18 - ENDOCRINE/METABOLIC Hx Hypothyroidism: Yes - HEMATOLOGICAL/ONCOLOGICAL Hx Blood Disorders: No - INTEGUMENTARY Hx Dermatological Problems: No - MUSCULOSKELETAL/RHEUMATOLOGICAL Hx Arthritis: Yes Hx Falls: Yes - GASTROINTESTINAL Hx Gastrointestinal Disorders: No - GENITOURINARY/GYNECOLOGICAL Hx Genitourinary Disorders: No - PSYCHIATRIC Hx Psychophysiologic Disorder: No Hx Substance Use: Yes - SURGICAL HISTORY Hx Cholecystectomy: Yes - ANESTHESIA Hx Anesthesia: Yes Hx Anesthesia Reactions: Yes Hx Malignant Hyperthermia: No Meds Allergies/Adverse Reactions: Allergies Allergy/AdvReac Type Severity Reaction Status Date / Time No Known Allergies Allergy Verified 09/29/18 22:17 - Medications Medications: Current Medications Aspirin (Ecotrin) 81 mg PO DAILY [facility] Calcium Acetate (Phoslo) 667 mg PO ACHS [facility] Last Admin: 09/30/18 08:38 Dose: 667 mg Carvedilol (Coreg) 6.25 mg PO BID [facility] Enalapril Maleate (Vasotec) 2.5 mg PO DAILY [facility] Famotidine (Pepcid) 20 mg PO DAILY [facility] Heparin Sodium (Porcine) (Heparin) 5,000 units SC Q12 [facility] Levothyroxine Sodium (Synthroid) 125 mcg PO DAILY@0630 [facility] Last Admin: 09/30/18 06:22 Dose: 125 mcg Ondansetron HCl (Zofran Inj) 4 mg IVP Q6 PRN PRN Reason: Nausea/Vomiting Tamsulosin HCl (Flomax) 0.4 mg PO DAILY [facility] Physical Exam - Constitutional Appears: Well, Non-toxic, No Acute Distress, Chronically Ill - Head Exam Head Exam: ATRAUMATIC, NORMAL INSPECTION - Eye Exam Eye Exam: EOMI, Normal appearance - ENT Exam Additional comments: Elevated JVD - Respiratory Exam Respiratory Exam: Clear to Auscultation Bilateral, NORMAL BREATHING PATTERN - Cardiovascular Exam Cardiovascular Exam: REGULAR RHYTHM, +S1 - GI/Abdominal Exam GI & Abdominal Exam: Distended, Normal Bowel Sounds, Soft. absent: Organomegaly, Tenderness - Rectal Exam Rectal Exam: NORMAL INSPECTION. absent: Bloody Stool - Extremities Exam Extremities exam: Positive for: normal inspection. Negative for: pedal edema - Neurological Exam Neurological exam: Alert, CN II-XII Intact, Oriented x3 - Psychiatric Exam Psychiatric exam: Normal Affect, Normal Mood - Skin Skin Exam: Normal Color, Warm Results - Vital Signs Recent Vital Signs: Last Vital Signs Temp 97.4 F L 09/30/18 07:00 Pulse 85 09/30/18 07:00 Resp 20 09/30/18 07:00 BP 139/88 09/30/18 07:00 Pulse Ox 95 09/30/18 07:00 - Labs Result Diagrams: 09/29/18 23:34 09/29/18 23:34 Labs: Laboratory Results - last 24 hr 09/29/18 09/29/18 09/29/18 23:34 23:34 23:34 WBC 5.0 RBC 3.77 L Hgb 11.9 L Hct 35.9 MCV 95.2 H D MCH 31.6 H MCHC 33.2 RDW 16.5 H Plt Count 140 MPV 8.7 Neut % (Auto) 66.3 Lymph % (Auto) 19.1 L [place] % (Auto) 8.6 Eos % (Auto) 4.5 H Baso % (Auto) 1.5 Neut # (Auto) 3.3 Lymph # (Auto) 1.0 [place] # (Auto) 0.4 Eos # (Auto) 0.2 Baso # (Auto) 0.1 PT 13.9 H INR 1.3 APTT 30 Sodium 135 Potassium 5.4 H Chloride 91 L Carbon Dioxide 32 H Anion Gap 18 BUN 41 H Creatinine 5.4 H Est GFR ( Amer) 13 Est GFR (Non-Af Amer) 11 Random Glucose 95 Calcium 8.8 Total Bilirubin 1.2 AST 25 ALT 16 L Alkaline Phosphatase 157 H D Ammonia Total Protein 7.4 Albumin 4.1 Globulin 3.3 Albumin/Globulin Ratio 1.2 Lipase 230 09/30/18 01:34 WBC RBC Hgb Hct MCV MCH MCHC RDW Plt Count MPV Neut % (Auto) Lymph % (Auto) [place] % (Auto) Eos % (Auto) Baso % (Auto) Neut # (Auto) Lymph # (Auto) [place] # (Auto) Eos # (Auto) Baso # (Auto) PT INR APTT Sodium Potassium Chloride Carbon Dioxide Anion Gap BUN Creatinine Est GFR ( Amer) Est GFR (Non-Af Amer) Random Glucose Calcium Total Bilirubin AST ALT Alkaline Phosphatase Ammonia 29 Total Protein Albumin Globulin Albumin/Globulin Ratio Lipase Assessment & Plan - Assessment and Plan (Free Text) Assessment: #New-onset symptomatic ascites #Diarrhea #Systolic CHF, EF 25% #ESRD on HD #Hypothyroidism #b/l pleural effusions PLAN: -CT and labs reviewed. Large ascites. -Previous MRI/MRCP unremarkable in 2018. Negative hemochromatosis and hepatitis panel in the past was negative. Previous CT scans DO show mild-moderate ascites in the past year. -Unclear etiology of ascites, possible Cardiogenic hepatopathy vs Cirrhosis (hx of EtOH use) vs malignancy, other. No signs of SBP. -Agree with paracentesis. Recommend cell count, cytology, gram stain/culture, a lbumin, total protein -Monitor diarrhea -No endoscopic procedures planned at this time. -US w/ Doppler -NPO for possible procedure Case discussed with Dr. Tay, see attestation. - Date & Time Date: 09/30/18 Time: 09:41 <Oskar Tay Y - Last Filed: 09/30/18 12:58> Meds - Medications Medications: Current Medications Aspirin (Ecotrin) 81 mg PO DAILY [facility] Last Admin: 09/30/18 12:00 Dose: 81 mg Calcium Acetate (Phoslo) 667 mg PO ACHS [facility] Last Admin: 09/30/18 11:58 Dose: 667 mg Carvedilol (Coreg) 6.25 mg PO BID [facility] Last Admin: 09/30/18 12:49 Dose: 6.25 mg Enalapril Maleate (Vasotec) 2.5 mg PO DAILY [facility] Last Admin: 09/30/18 11:58 Dose: 2.5 mg Famotidine (Pepcid) 20 mg PO DAILY [facility] Last Admin: 09/30/18 12:00 Dose: 20 mg Heparin Sodium (Porcine) (Heparin) 5,000 units SC Q12 [facility] Levothyroxine Sodium (Synthroid) 125 mcg PO DAILY@0630 [facility] Last Admin: 09/30/18 06:22 Dose: 125 mcg Ondansetron HCl (Zofran Inj) 4 mg IVP Q6 PRN PRN Reason: Nausea/Vomiting Tamsulosin HCl (Flomax) 0.4 mg PO DAILY [facility] Last Admin: 09/30/18 12:00 Dose: 0.4 mg Results - Vital Signs Recent Vital Signs: Last Vital Signs Temp 97.4 F L 09/30/18 07:00 Pulse 85 09/30/18 07:00 Resp 20 09/30/18 07:00 BP 140/78 09/30/18 11:58 Pulse Ox 95 09/30/18 07:00 - Labs Result Diagrams: 09/29/18 23:34 09/29/18 23:34 Labs: Laboratory Results - last 24 hr 09/29/18 09/29/18 09/29/18 23:34 23:34 23:34 WBC 5.0 RBC 3.77 L Hgb 11.9 L Hct 35.9 MCV 95.2 H D MCH 31.6 H MCHC 33.2 RDW 16.5 H Plt Count 140 MPV 8.7 Neut % (Auto) 66.3 Lymph % (Auto) 19.1 L [place] % (Auto) 8.6 Eos % (Auto) 4.5 H Baso % (Auto) 1.5 Neut # (Auto) 3.3 Lymph # (Auto) 1.0 [place] # (Auto) 0.4 Eos # (Auto) 0.2 Baso # (Auto) 0.1 PT 13.9 H INR 1.3 APTT 30 Sodium 135 Potassium 5.4 H Chloride 91 L Carbon Dioxide 32 H Anion Gap 18 BUN 41 H Creatinine 5.4 H Est GFR ( Amer) 13 Est GFR (Non-Af Amer) 11 Random Glucose 95 Calcium 8.8 Total Bilirubin 1.2 AST 25 ALT 16 L Alkaline Phosphatase 157 H D Ammonia Total Protein 7.4 Albumin 4.1 Globulin 3.3 Albumin/Globulin Ratio 1.2 Lipase 230 09/30/18 09/30/18 01:34 11:32 WBC RBC Hgb Hct MCV MCH MCHC RDW Plt Count MPV Neut % (Auto) Lymph % (Auto) [place] % (Auto) Eos % (Auto) Baso % (Auto) Neut # (Auto) Lymph # (Auto) [place] # (Auto) Eos # (Auto) Baso # (Auto) PT INR APTT Sodium Potassium Chloride Carbon Dioxide Anion Gap BUN Creatinine Est GFR ( Amer) Est GFR (Non-Af Amer) Random Glucose Calcium Total Bilirubin AST ALT Alkaline Phosphatase Ammonia 29 Total Protein Albumin Globulin Albumin/Globulin Ratio Lipase 146 Attending/Attestation - Attestation I have personally seen and examined this patient.: Yes I have fully participated in the care of the patient.: Yes I have reviewed all pertinent clinical information: Yes Notes (Text): 09/30/18 12:53 I have seen and examined patient with GI fellow. Agree with above documentation with the following additions. In brief, this is a 68 year old male with history of ESRD on HD, CHF, who presents to hospital with complaint of progressive abdominal distention and pain for the past two weeks. He reports epigastric pain 5/10 intensity radiating to umbilicus which is not related to food consumption. He notes intermittent dark colored stool during this time but denies nausea, vomiting, fever/chills, weight loss, or change in bowel habits. No prior endoscopic evaluation. Review of vitals from today are normal. ESRD on HD CHF Abdominal distention, ascites Anemia - Low sodium diet as tolerated - Unclear etiology of ascites, possibly cardiac related though patient reports prior history of ETOH abuse - Patient requires paracentesis with analysis of ascitic fluid - Obtain abdominal US with doppler - H/H stable, continue to monitor - Given complaint of ongoing dark stool and need for variceal screening, will plan for EGD tomorrow. NPO after midnight.
--- NOTE | 2018-09-30 09:41 | CP.PCM.PN ---
Subjective - Date & Time of Evaluation Date of Evaluation: 09/30/18 Time of Evaluation: 09:37 - Subjective Subjective: Sherrie Atwood PGY1 Progress Note for Dr. Lauren Pt was examined at bedside this morning. He reports some abdominal pain and distention in the epigastric and lower midline regions of his abdomen, which he attributes to his cholecystectomy in March. Pt reports one episode of vomiting at home, which was white in color. He denies any current nausea, vomiting, or diarrhea. He reports two small bowel movements which he described as normal in consistency and formed. He denies blood in the stool. Pt reports some intermittent shortness of breath associated with his abdominal pain. He denies dizziness, fever, chills, chest pain, dysuria. Objective - Vital Signs/Intake and Output Vital Signs (last 24 hours): Temp Pulse Resp BP Pulse Ox 97.4 F L 85 20 139/88 95 09/30/18 07:00 09/30/18 07:00 09/30/18 07:00 09/30/18 07:00 09/30/18 07:00 - Medications Medications: Current Medications Aspirin (Ecotrin) 81 mg PO DAILY [facility] Calcium Acetate (Phoslo) 667 mg PO ACHS [facility] Last Admin: 09/30/18 08:38 Dose: 667 mg Carvedilol (Coreg) 6.25 mg PO BID [facility] Enalapril Maleate (Vasotec) 2.5 mg PO DAILY [facility] Famotidine (Pepcid) 20 mg PO DAILY [facility] Heparin Sodium (Porcine) (Heparin) 5,000 units SC Q12 [facility] Levothyroxine Sodium (Synthroid) 125 mcg PO DAILY@0630 [facility] Last Admin: 09/30/18 06:22 Dose: 125 mcg Ondansetron HCl (Zofran Inj) 4 mg IVP Q6 PRN PRN Reason: Nausea/Vomiting Tamsulosin HCl (Flomax) 0.4 mg PO DAILY [facility] - Labs Labs: 09/29/18 23:34 09/29/18 23:34 PT 13.9 SECONDS (9.7-12.2) H 09/29/18 23:34 INR 1.3 09/29/18 23:34 APTT 30 SECONDS (21-34) 09/29/18 23:34 - Constitutional Appears: Well, No Acute Distress - Head Exam Head Exam: ATRAUMATIC, NORMOCEPHALIC - Eye Exam Eye Exam: EOMI, Normal appearance Pupil Exam: NORMAL ACCOMODATION - ENT Exam ENT Exam: Mucous Membranes Moist - Neck Exam Neck Exam: Full ROM - Respiratory Exam Respiratory Exam: Clear to Ausculation Bilateral, NORMAL BREATHING PATTERN. absent: Rales, Rhonchi, Wheezes - Cardiovascular Exam Cardiovascular Exam: REGULAR RHYTHM, +S1, +S2. absent: Gallop, Rubs, Murmur - GI/Abdominal Exam GI & Abdominal Exam: Distended, Soft, Normal Bowel Sounds. absent: Tenderness - Extremities Exam Extremities Exam: Normal Inspection. absent: Pedal Edema - Neurological Exam Neurological Exam: Alert, Awake, Oriented x3 - Psychiatric Exam Psychiatric exam: Normal Affect, Normal Mood - Skin Skin Exam: Normal Color Assessment and Plan - Assessment and Plan (Free Text) Assessment: 68yo M with PMH ESRD and HTN presented to ED with abdominal distention, admitted for further evaluation and treatment. Plan: Ascites - CT abd/pel: large pelvic ascites. moderate pleural effusion greater on R. b/l renal cortical atrophy. parapelvic cysts. - Ammonia wnl - Zofran 4mg IV q6h PRN nausea - NPO - Thoracentesis ordered - f/u thoracentesis fluid studies - f/u FOBT - GI consulted, Dr. Tay - recs appreciated ESRD - CT abd/pel: large pelvic ascites. moderate pleural effusion greater on R. b/l renal cortical atrophy. parapelvic cysts. - BUN/Cr 41/5.4 - Phsolo 667mg PO ACHS - Nephro consulted, Dr. Banks - f/u recs Systolic CHF - ECHO (02/15): EF 20-25% HTN - ASA 81mg PO Daily - Coreg 6.25mg PO BID - Vasotec 2.5mg PO daily H/o hypothyroid - f/u TSH, Free T4 - Synthroid 125mcg PO daily PPx GI: pepcid 20 BID DVT: Heparin 5000u sc q12 NPO Case reviewed with Dr. Lauren
--- NOTE | 2018-09-30 15:21 | CP.PCM.CON ---
History of Present Illness - History of Present Illness History of Present Illness: Patient is a 68M presenting with abdominal discomfort and distension. This abdominal distension has been progressively worsening for the last 15days. This is a new onset problem. He has never had a paracentesis. He has no known liver disease history but does admit 20 years of heavy drinking in the past in [facility]. Patient also has a history of sCHF. He is making urine and is taking diuretic regularly per patient. On dialysis x many years; h/o CHF and dialysis noncompliance He states he has been having diarrhea intermittently x15 days with black stool. Denies NSAID use, Iron pills, peptobismol. No vomiting or BRBPR. Hb is stable PMHx - ESRD on HD, sCHF EF 25% PSHx - Fistula Left arm, cholecystectomy. No endoscopic history. FmHx - No GI related cancers; no known CKD SocHx - No current alcohol or tobacco use. Previous heavy Etoh User x 20yrs. Lives with son at home. no illicits 12pt ROS completed and negative except for above. Review of Systems - Constitutional Constitutional: Fatigue, Weakness - EENT Eyes: absent: As Per HPI, Blind Spots, Blurred Vision, Change in Vision, Decreased Night Vision, Diplopia, Discharge, Dry Eye, Exophthalmos, Floaters, Irritation, Itchy Eyes, Loss of Peripheral Vision, Pain, Photophobia, Requires Corrective Lenses, Sees Flashes, Spots in Vision, Tunnel Vision, Other Visual Disturbances, Loss of Vision, Other Ears: absent: As Per HPI, Decreased Hearing, Ear Discharge, Ear Pain, Tinnitus, Abnormal Hearing, Disequilibrium, Dizziness, Other Nose/Mouth/Throat: absent: As Per HPI, Epistaxis, Nasal Congestion, Nasal Discha rge, Nasal Obstruction, Nasal Trauma, Nose Pain, Post Nasal Drip, Sinus Pain, Sinus Pressure, Bleeding Gums, Change in Voice, Dental Pain, Dry Mouth, Dysphagia, Halitosis, Hoarsness, Lip Swelling, Mouth Lesions, Mouth Pain, Odynophagia, Sore Throat, Throat Swelling, Tongue Swelling, Facial Pain, Neck Pain, Neck Mass, Other - Cardiovascular Cardiovascular: Dyspnea on Exertion, Orthopnea - Respiratory Respiratory: Cough, Dyspnea on Exertion - Gastrointestinal Gastrointestinal: As Per HPI - Musculoskeletal Musculoskeletal: Muscle Weakness, Myalgias - Neurological Neurological: Weakness Past Patient History - Infectious Disease Hx of Infectious Diseases: None - Past Medical History & Family History Past Medical History?: Yes Past Family History: Reviewed and not pertinent - Past Social History Smoking Status: Former Smoker Chewing Tobacco Use: No Cigar Use: No Alcohol: None Drugs: Denies Home Situation {Lives}: With Family - CARDIAC Hx Hypertension: Yes Hx Peripheral Edema: Yes (left arm and hand edema) - PULMONARY Hx Respiratory Disorders: No - NEUROLOGICAL Hx Neurological Disorder: No - HEENT Hx HEENT Problems: No - RENAL Hx Chronic Kidney Disease: Yes Hx Dialysis: Yes Date of Last Dialysis Treatment: 09/28/18 - ENDOCRINE/METABOLIC Hx Hypothyroidism: Yes - HEMATOLOGICAL/ONCOLOGICAL Hx Blood Disorders: No - INTEGUMENTARY Hx Dermatological Problems: No - MUSCULOSKELETAL/RHEUMATOLOGICAL Hx Arthritis: Yes Hx Falls: Yes - GASTROINTESTINAL Hx Gastrointestinal Disorders: No - GENITOURINARY/GYNECOLOGICAL Hx Genitourinary Disorders: No - PSYCHIATRIC Hx Psychophysiologic Disorder: No Hx Substance Use: Yes - SURGICAL HISTORY Hx Cholecystectomy: Yes - ANESTHESIA Hx Anesthesia: Yes Hx Anesthesia Reactions: Yes Hx Malignant Hyperthermia: No Meds Allergies/Adverse Reactions: Allergies Allergy/AdvReac Type Severity Reaction Status Date / Time No Known Allergies Allergy Verified 09/29/18 22:17 - Medications Medications: Current Medications Aspirin (Ecotrin) 81 mg PO DAILY [facility] Last Admin: 09/30/18 12:00 Dose: 81 mg Calcium Acetate (Phoslo) 667 mg PO ACHS [facility] Last Admin: 09/30/18 11:58 Dose: 667 mg Carvedilol (Coreg) 6.25 mg PO BID [facility] Last Admin: 09/30/18 12:49 Dose: 6.25 mg Enalapril Maleate (Vasotec) 2.5 mg PO DAILY [facility] Last Admin: 09/30/18 11:58 Dose: 2.5 mg Famotidine (Pepcid) 20 mg PO DAILY [facility] Last Admin: 09/30/18 12:00 Dose: 20 mg Heparin Sodium (Porcine) (Heparin) 5,000 units SC Q12 [facility] Levothyroxine Sodium (Synthroid) 125 mcg PO DAILY@0630 [facility] Last Admin: 09/30/18 06:22 Dose: 125 mcg Ondansetron HCl (Zofran Inj) 4 mg IVP Q6 PRN PRN Reason: Nausea/Vomiting Tamsulosin HCl (Flomax) 0.4 mg PO DAILY [facility] Last Admin: 09/30/18 12:00 Dose: 0.4 mg Physical Exam - Constitutional Appears: No Acute Distress, Chronically Ill - Head Exam Head Exam: ATRAUMATIC, NORMAL INSPECTION - Neck Exam Neck exam: Positive for: Normal Inspection. Negative for: Tenderness - Respiratory Exam Respiratory Exam: Clear to Auscultation Bilateral, NORMAL BREATHING PATTERN - Cardiovascular Exam Cardiovascular Exam: REGULAR RHYTHM, +S1 - GI/Abdominal Exam GI & Abdominal Exam: Distended, Soft - Extremities Exam Extremities exam: Positive for: normal inspection. Negative for: tenderness - Neurological Exam Neurological exam: Alert, CN II-XII Intact - Skin Skin Exam: Dry, Warm Results - Vital Signs Recent Vital Signs: Last Vital Signs Temp 97.4 F L 09/30/18 07:00 Pulse 85 09/30/18 07:00 Resp 20 09/30/18 07:00 BP 140/78 09/30/18 11:58 Pulse Ox 95 09/30/18 07:00 - Labs Result Diagrams: 09/29/18 23:34 09/29/18 23:34 Labs: Laboratory Results - last 24 hr 09/29/18 09/29/18 09/29/18 23:34 23:34 23:34 WBC 5.0 RBC 3.77 L Hgb 11.9 L Hct 35.9 MCV 95.2 H D MCH 31.6 H MCHC 33.2 RDW 16.5 H Plt Count 140 MPV 8.7 Neut % (Auto) 66.3 Lymph % (Auto) 19.1 L Harmon % (Auto) 8.6 Eos % (Auto) 4.5 H Baso % (Auto) 1.5 Neut # (Auto) 3.3 Lymph # (Auto) 1.0 Harmon # (Auto) 0.4 Eos # (Auto) 0.2 Baso # (Auto) 0.1 PT 13.9 H INR 1.3 APTT 30 Sodium 135 Potassium 5.4 H Chloride 91 L Carbon Dioxide 32 H Anion Gap 18 BUN 41 H Creatinine 5.4 H Est GFR ( Amer) 13 Est GFR (Non-Af Amer) 11 Random Glucose 95 Calcium 8.8 Total Bilirubin 1.2 AST 25 ALT 16 L Alkaline Phosphatase 157 H D Ammonia Total Protein 7.4 Albumin 4.1 Globulin 3.3 Albumin/Globulin Ratio 1.2 Lipase 230 09/30/18 09/30/18 01:34 11:32 WBC RBC Hgb Hct MCV MCH MCHC RDW Plt Count MPV Neut % (Auto) Lymph % (Auto) Harmon % (Auto) Eos % (Auto) Baso % (Auto) Neut # (Auto) Lymph # (Auto) Harmon # (Auto) Eos # (Auto) Baso # (Auto) PT INR APTT Sodium Potassium Chloride Carbon Dioxide Anion Gap BUN Creatinine Est GFR ( Amer) Est GFR (Non-Af Amer) Random Glucose Calcium Total Bilirubin AST ALT Alkaline Phosphatase Ammonia 29 Total Protein Albumin Globulin Albumin/Globulin Ratio Lipase 146 Assessment & Plan (1) ESRD (end stage renal disease) Status: Acute (2) Hypertensive chronic kidney disease with stage 5 chronic kidney disease or end stage renal disease Status: Acute (3) CHF (congestive heart failure) Status: Acute (4) Pulmonary HTN Status: Acute (5) Hypothyroidism Status: Chronic - Assessment and Plan (Free Text) Plan: Needs dialysis with extra UF GI/cardiac evaluation
[2018-10-01] MEDS: Levothyroxine 125 MCG TAB PO SCH (06:14)
[2018-10-01 07:57] LABS: BASO # 0.1 K/uL (0.0-0.2); EOS # 0.2 K/uL (0.0-0.7); EOS % 5.8 % (0.0-4.0); LYMPH # 0.6 K/uL (1.0-4.3); LYMPH % 15.4 % (20.0-40.0); MEAN CELL VOLUME 95.1 fL (80.0-94.0); MEAN CORPUSCULAR HEMOGLOBIN 31.9 pg (27.0-31.0); MEAN CORPUSCULAR HGB CONC 33.5 g/dL (33.0-37.0); MEAN PLATELET VOLUME 8.8 fL (7.2-11.7); MONO # 0.3 K/uL (0.0-0.8); MONO % 7.9 % (0.0-10.0); NEUT # 2.9 K/uL (1.8-7.0); NEUT % 68.9 % (50.0-75.0); NRBC % 0.2 % (0.0-2.0); RBC 3.78 Mil/uL (4.40-5.90); RED CELL DISTRIBUTION WIDTH 16.7 % (11.5-14.5); WHITE BLOOD COUNT 4.2 K/uL (4.8-10.8)
[2018-10-01 08:12] LABS: ALB/GLOB RATIO 1.1 (1.0-2.1); ALBUMIN 3.4 g/dL (3.5-5.0); CALCIUM 8.6 mg/dl (8.6-10.4)
[2018-10-01] MEDS ORDERED: Sodium Chloride 0.9% 1,000 ML IV ONE (09:30)
[2018-10-01] MEDS ORDERED: Lactated Ringer's 1,000 ML IV ONE (09:30)
[2018-10-01] MEDS ORDERED: Midazolam 2 MG/2 ML VIAL ONE (09:36)
[2018-10-01] MEDS ORDERED: Etomidate 20 mg/10ml Inj IV ONE (09:37)
--- NOTE | 2018-10-01 10:03 | CP.PCM.PN ---
Subjective - Date & Time of Evaluation Date of Evaluation: 10/01/18 Time of Evaluation: 10:00 - Subjective Subjective: Seen for dialysis last PM UF 3000ml with HD undergoing GI workup- for EGD now; s/p abdominal US Tolerated HD well Objective - Vital Signs/Intake and Output Vital Signs (last 24 hours): Temp Pulse Resp BP Pulse Ox 97.8 F 78 20 125/74 96 10/01/18 09:30 10/01/18 09:30 10/01/18 09:30 10/01/18 09:30 10/01/18 09:30 Intake and Output: 10/01/18 10/01/18 06:59 18:59 Intake Total 240 Balance 240 - Medications Medications: Current Medications Aspirin (Ecotrin) 81 mg PO DAILY [facility] Last Admin: 09/30/18 12:00 Dose: 81 mg Calcium Acetate (Phoslo) 667 mg PO TIDCC [facility] Last Admin: 10/01/18 07:56 Dose: 667 mg Carvedilol (Coreg) 6.25 mg PO BID [facility] Last Admin: 10/01/18 09:14 Dose: Not Given Enalapril Maleate (Vasotec) 2.5 mg PO DAILY [facility] Last Admin: 09/30/18 11:58 Dose: 2.5 mg Famotidine (Pepcid) 20 mg PO DAILY [facility] Last Admin: 09/30/18 12:00 Dose: 20 mg Heparin Sodium (Porcine) (Heparin) 5,000 units SC Q12 [facility] Last Admin: 09/30/18 22:47 Dose: Not Given Levothyroxine Sodium (Synthroid) 125 mcg PO DAILY@0630 [facility] Last Admin: 10/01/18 06:14 Dose: 125 mcg Ondansetron HCl (Zofran Inj) 4 mg IVP Q6 PRN PRN Reason: Nausea/Vomiting Tamsulosin HCl (Flomax) 0.4 mg PO DAILY [facility] Last Admin: 09/30/18 12:00 Dose: 0.4 mg - Labs Labs: 10/01/18 07:22 10/01/18 07:22 PT 13.9 SECONDS (9.7-12.2) H 09/29/18 23:34 INR 1.3 09/29/18 23:34 APTT 30 SECONDS (21-34) 09/29/18 23:34 - Constitutional Appears: No Acute Distress, Chronically Ill - Head Exam Head Exam: ATRAUMATIC, NORMAL INSPECTION - Eye Exam Eye Exam: EOMI, Normal appearance - Neck Exam Neck Exam: Normal Inspection. absent: Tenderness - Respiratory Exam Respiratory Exam: Clear to Ausculation Bilateral - Cardiovascular Exam Cardiovascular Exam: REGULAR RHYTHM, +S1 - GI/Abdominal Exam GI & Abdominal Exam: Distended, Soft - Extremities Exam Extremities Exam: Pedal Edema. absent: Tenderness Assessment and Plan (1) ESRD (end stage renal disease) Status: Acute (2) Hypertensive chronic kidney disease with stage 5 chronic kidney disease or end stage renal disease Status: Acute (3) CHF (congestive heart failure) Status: Acute (4) Pulmonary HTN Status: Acute (5) Hypothyroidism Status: Chronic - Assessment and Plan (Free Text) Plan: recommend echo to evaluate for right sided CHF dialysis MWF with increased UF
--- NOTE | 2018-10-01 10:50 | CP.PCM.PN ---
Subjective - Date & Time of Evaluation Date of Evaluation: 10/01/18 Time of Evaluation: 10:46 - Subjective Subjective: Sherrie Atwood PGY1 Progress Note for Dr. Lauren Pt was examined at bedside this morning. He reports continuation of his abdominal distention and reports mild intermittent pain. Pt denies any nausea, vomiting, fever, chills, shortness of breath, diarrhea, dysuria. Objective - Vital Signs/Intake and Output Vital Signs (last 24 hours): Temp Pulse Resp BP Pulse Ox 98 F 66 18 103/60 100 10/01/18 09:51 10/01/18 10:21 10/01/18 10:21 10/01/18 10:21 10/01/18 10:21 Intake and Output: 10/01/18 10/01/18 06:59 18:59 Intake Total 240 Balance 240 - Medications Medications: Current Medications Aspirin (Ecotrin) 81 mg PO DAILY [facility] Last Admin: 09/30/18 12:00 Dose: 81 mg Calcium Acetate (Phoslo) 667 mg PO TIDCC [facility] Last Admin: 10/01/18 07:56 Dose: 667 mg Carvedilol (Coreg) 6.25 mg PO BID [facility] Last Admin: 10/01/18 09:14 Dose: Not Given Enalapril Maleate (Vasotec) 2.5 mg PO DAILY [facility] Last Admin: 09/30/18 11:58 Dose: 2.5 mg Famotidine (Pepcid) 20 mg PO DAILY [facility] Last Admin: 09/30/18 12:00 Dose: 20 mg Heparin Sodium (Porcine) (Heparin) 5,000 units SC Q12 [facility] Last Admin: 09/30/18 22:47 Dose: Not Given Levothyroxine Sodium (Synthroid) 125 mcg PO DAILY@0630 [facility] Last Admin: 10/01/18 06:14 Dose: 125 mcg Ondansetron HCl (Zofran Inj) 4 mg IVP Q6 PRN PRN Reason: Nausea/Vomiting Tamsulosin HCl (Flomax) 0.4 mg PO DAILY [facility] Last Admin: 09/30/18 12:00 Dose: 0.4 mg - Labs Labs: 10/01/18 07:22 10/01/18 07:22 PT 13.9 SECONDS (9.7-12.2) H 09/29/18 23:34 INR 1.3 09/29/18 23:34 APTT 30 SECONDS (21-34) 09/29/18 23:34 - Additional Findings Additional findings: - Constitutional Appears: Well, No Acute Distress - Head Exam Head Exam: ATRAUMATIC, NORMOCEPHALIC - Eye Exam Eye Exam: EOMI, Normal appearance Pupil Exam: NORMAL ACCOMODATION - ENT Exam ENT Exam: Mucous Membranes Moist - Neck Exam Neck Exam: Full ROM - Respiratory Exam Respiratory Exam: Clear to Ausculation Bilateral, NORMAL BREATHING PATTERN. absent: Rales, Rhonchi, Wheezes - Cardiovascular Exam Cardiovascular Exam: REGULAR RHYTHM, +S1, +S2. absent: Gallop, Rubs, Murmur - GI/Abdominal Exam GI & Abdominal Exam: Distended, Soft, Normal Bowel Sounds. absent: Tenderness - Extremities Exam Extremities Exam: Normal Inspection. absent: Pedal Edema - Neurological Exam Neurological Exam: Alert, Awake, Oriented x3 - Psychiatric Exam Psychiatric exam: Normal Affect, Normal Mood - Skin Skin Exam: Normal Color Assessment and Plan - Assessment and Plan (Free Text) Assessment: 68yo M with PMH ESRD and HTN presented to ED with abdominal distention, admitted for further evaluation and treatment of ascites. S/p EGD 10/01/18 showing ga stritis and duodenitis. Awaiting paracentesis w/ IR. Pt received HD yesterday, tolerated well. Plan: Ascites - CT abd/pel: large pelvic ascites. moderate pleural effusion greater on R. b/l renal cortical atrophy. parapelvic cysts. - s/p EGD 10/01/18: gastritis w/ bx taken, duodenitis - likely cardiac origin - Zofran 4mg IV q6h PRN nausea - Thoracentesis ordered - f/u thoracentesis fluid studies - f/u ECHO - f/u FOBT - GI consulted, Dr. Tay - recs appreciated ESRD - CT abd/pel: large pelvic ascites. moderate pleural effusion greater on R. b/l renal cortical atrophy. parapelvic cysts. - s/p HD, MWF schedule - BUN/Cr 30/4.2 - Phsolo 667mg PO ACHS - Nephro consulted, Dr. Banks - f/u recs Systolic CHF - ECHO (02/15): EF 20-25% - pt with ascites - f/u repeat ECHO HTN - ASA 81mg PO Daily - Coreg 6.25mg PO BID - Vasotec 2.5mg PO daily H/o hypothyroid - TSH 12.9 - Free T4 wnl - Synthroid 125mcg PO daily PPx GI: pepcid 20 BID DVT: Heparin 5000u sc q12 [facility] Case reviewed with Dr. Lauren
--- NOTE | 2018-10-01 12:07 | US ---
HISTORY: Ascites COMPARISON: CT abdomen pelvis without contrast performed 09/29/18 TECHNIQUE: Sonographic evaluation of the abdomen. FINDINGS: LIVER: Measures 14.5 cm in sagittal dimension. Echogenic liver may be seen in setting of hepatic parenchymal disease or fatty infiltration. Nodular hepatic contour. No focal hepatic mass identified. The main portal vein demonstrates bidirectional flow. No intrahepatic bile duct dilatation. Moderate to large ascites. GALLBLADDER: Cholecystectomy. COMMON BILE DUCT: Measures 4 mm. PANCREAS: Not well visualized. RIGHT KIDNEY: Measures 7.7 x 4.1 x 4.2 cm. Echogenic renal parenchyma. 2.8 x 1.7 x 2.3 cm midpole parapelvic cyst. 1.0 x 0.8 x 0.8 cm midpole cyst. No hydronephrosis or obstructing calculus identified. LEFT KIDNEY: Measures 8.5 x 5.5 x 4.9 cm. Echogenic renal parenchyma. The 2.9 x 2.4 x 3.2 cm midpole cyst. 3.0 x 2.4 x 2.5 cm lower pole cyst. Left parapelvic cyst measuring approximately 2.6 x 1.5 x 3.3 cm. No obstructing calculus identified. SPLEEN: Measures approximately 7.7 cm. AORTA: Limited views appear unremarkable. IVC: Limited views appear unremarkable. OTHER FINDINGS: Incidental note is made of bilateral pleural effusions. IMPRESSION: Nodular hepatic contour. Correlate for cirrhosis. Echogenic liver may be seen in setting of hepatic parenchymal disease or fatty infiltration. Bidirectional portal venous flow. Moderate to large ascites. Echogenic renal parenchyma may be seen in setting of medical renal disease. Bilateral renal cysts. Bilateral parapelvic cysts. Cholecystectomy. Bilateral pleural effusions. Additional findings as above. Preliminary impression was provided by [employer].
--- NOTE | 2018-10-01 12:07 | PCM.SURG1 ---
Surgeon's Initial Post Op Note - Surgeon's Notes Surgeon: Jack Castellano MD [employer] Teacher: NONE Type of Anesthesia: Local Pre-Operative Diagnosis: Ascites Operative Findings: US showed large amount of ascites Post-Operative Diagnosis: Ascites Operation Performed: US guided paracentesis Specimen/Specimens Removed: 5.5 liters of straw colored fluid Estimated Blood Loss: EBL {In ML}: 0 Blood Products Given: N/A Drains Used: No Drains Post-Op Condition: Fair Date of Surgery/Procedure: 10/01/18 Time of Surgery/Procedure: 12:00
--- NOTE | 2018-10-01 14:09 | US ---
Date of Procedure: 10/01/2018 PROCEDURE: Ultrasound-guided paracentesis, CPT 04289 Medications: 7 cc 1% Lidocaine HISTORY: Ascites, abdominal pain TECHNIQUE: Following informed consent , the patient was placed supine on the stretcher and the site was marked. A limited abdominal ultrasound was performed that showed a large amount of intra-abdominal fluid. Procedural time out was called and the Pt's abdomen was marked and prepped and draped in the usual sterile fashion. Ultrasound-guided large volume paracentesis performed. A total of 5.5 Liters of straw colored fluid was removed without complication. IMPRESSION: Ultrasound-guided large volume paracentesis.
[2018-10-01] MEDS: Albumin Human 25% (12.5 gm/50 ml) IV SCH (14:12)
[2018-10-01 14:43] LABS: BODY FLUID TYPE PERITONEAL
[2018-10-01 15:57] LABS: BF GROSS APPEARANCE SL CLOUDY (CLEAR)
[2018-10-01 15:58] LABS: BODY FLUID MONO/MACROPHAGE 2 % (0-0); BODY FLUID TOTAL COUNT 100 (0-0)
[2018-10-02] MEDS: Levothyroxine 125 MCG TAB PO SCH (05:43)
[2018-10-02 06:44] LABS: BASO % 1.2 % (0.0-2.0); EOS # 0.2 K/uL (0.0-0.7); HEMOGLOBIN 12.4 g/dL (12.0-18.0); LYMPH # 0.9 K/uL (1.0-4.3); LYMPH % 25.5 % (20.0-40.0); MEAN CELL VOLUME 95.7 fL (80.0-94.0); MEAN CORPUSCULAR HEMOGLOBIN 31.3 pg (27.0-31.0); MEAN CORPUSCULAR HGB CONC 32.7 g/dL (33.0-37.0); MEAN PLATELET VOLUME 9.2 fL (7.2-11.7); MONO # 0.3 K/uL (0.0-0.8); MONO % 9.1 % (0.0-10.0); NEUT % 57.2 % (50.0-75.0); NRBC % 0.2 % (0.0-2.0); RBC 3.96 Mil/uL (4.40-5.90); RED CELL DISTRIBUTION WIDTH 16.5 % (11.5-14.5); WHITE BLOOD COUNT 3.5 K/uL (4.8-10.8)
[2018-10-02 07:11] LABS: ALB/GLOB RATIO 1.2 (1.0-2.1); ALBUMIN 3.7 g/dL (3.5-5.0); CALCIUM 8.6 mg/dl (8.6-10.4)
--- NOTE | 2018-10-02 09:05 | CP.PCM.PN ---
<Sen Yepez - Last Filed: 10/02/18 11:46> Subjective - Date & Time of Evaluation Date of Evaluation: 10/02/18 Time of Evaluation: 09:01 - Subjective Subjective: Patient is feeling well. He had EGD, paracentesis yesterday. He denies nausea, vomiting, abdominal pain, fever. Requesting food. 5pt ROS completed and negative except for above. Objective - Vital Signs/Intake and Output Vital Signs (last 24 hours): Temp Pulse Resp BP Pulse Ox 97.6 F 63 20 100/66 100 10/02/18 07:00 10/02/18 07:00 10/02/18 07:00 10/02/18 07:00 10/02/18 07:00 Intake and Output: 10/02/18 10/02/18 06:59 18:59 Intake Total 240 Balance 240 - Medications Medications: Current Medications Aspirin (Ecotrin) 81 mg PO DAILY [facility] Last Admin: 10/01/18 10:58 Dose: Not Given Calcium Acetate (Phoslo) 667 mg PO TIDCC [facility] Last Admin: 10/02/18 08:27 Dose: 667 mg Carvedilol (Coreg) 6.25 mg PO BID [facility] Last Admin: 10/01/18 18:00 Dose: 6.25 mg Enalapril Maleate (Vasotec) 2.5 mg PO DAILY [facility] Last Admin: 10/01/18 10:59 Dose: Not Given Famotidine (Pepcid) 20 mg PO BID [facility] Last Admin: 10/01/18 18:00 Dose: 20 mg Heparin Sodium (Porcine) (Heparin) 5,000 units SC Q12 [facility] Last Admin: 10/01/18 23:53 Dose: 5,000 units Levothyroxine Sodium (Synthroid) 125 mcg PO DAILY@0630 [facility] Last Admin: 10/02/18 05:43 Dose: 125 mcg Ondansetron HCl (Zofran Inj) 4 mg IVP Q6 PRN PRN Reason: Nausea/Vomiting Tamsulosin HCl (Flomax) 0.4 mg PO DAILY [facility] Last Admin: 10/01/18 10:58 Dose: Not Given - Labs Labs: 10/02/18 06:36 10/02/18 06:36 PT 13.9 SECONDS (9.7-12.2) H 09/29/18 23:34 INR 1.3 09/29/18 23:34 APTT 30 SECONDS (21-34) 09/29/18 23:34 - Constitutional Appears: Well, Non-toxic - Head Exam Head Exam: ATRAUMATIC, NORMAL INSPECTION - Respiratory Exam Respiratory Exam: Clear to Ausculation Bilateral, NORMAL BREATHING PATTERN - Cardiovascular Exam Cardiovascular Exam: REGULAR RHYTHM, +S1, +S2 - GI/Abdominal Exam GI & Abdominal Exam: Soft, Normal Bowel Sounds. absent: Tenderness - Neurological Exam Neurological Exam: Alert, Awake, Oriented x3 - Psychiatric Exam Psychiatric exam: Normal Affect, Normal Mood - Skin Skin Exam: Normal Color, Warm Assessment and Plan - Assessment and Plan (Free Text) Assessment: #New-onset symptomatic ascites #Diarrhea #Systolic CHF, EF 25% #ESRD on HD #Hypothyroidism #b/l pleural effusions PLAN: -CT and labs reviewed. Large ascites. US w/ Doppler normal -Previous MRI/MRCP unremarkable in 2018. Negative hemochromatosis and hepatitis panel in the past was negative. Previous CT scans DO show mild-moderate ascites in the past year. -Unclear etiology of ascites, possible Cardiogenic hepatopathy vs Cirrhosis (hx of EtOH use) vs malignancy, other. No signs of SBP. -s/p paracentesis, 5.5L. No need for replacement albumin given he is already on HD. -PENDING fluid results -s/p EGD, severe diffuse gastritis -PENDING biopsy results -Start PPI daily -renal, cardiac, low Na, fluid restricted diet. Case discussed with Dr. Tay, see attestation. <Oskar Tay - Last Filed: 10/02/18 12:31> Objective - Vital Signs/Intake and Output Vital Signs (last 24 hours): Temp Pulse Resp BP Pulse Ox 97.6 F 63 20 100/66 100 10/02/18 07:00 10/02/18 07:00 10/02/18 07:00 10/02/18 07:00 10/02/18 07:00 Intake and Output: 10/02/18 10/02/18 06:59 18:59 Intake Total 240 Balance 240 - Medications Medications: Current Medications Aspirin (Ecotrin) 81 mg PO DAILY [facility] Last Admin: 10/02/18 10:19 Dose: 81 mg Calcium Acetate (Phoslo) 667 mg PO TIDCC [facility] Last Admin: 10/02/18 08:27 Dose: 667 mg Carvedilol (Coreg) 6.25 mg PO BID [facility] Last Admin: 10/02/18 10:22 Dose: Not Given Enalapril Maleate (Vasotec) 2.5 mg PO DAILY [facility] Last Admin: 10/02/18 10:23 Dose: Not Given Famotidine (Pepcid) 20 mg PO BID [facility] Last Admin: 10/02/18 10:19 Dose: 20 mg Heparin Sodium (Porcine) (Heparin) 5,000 units SC Q12 [facility] Last Admin: 10/02/18 10:19 Dose: 5,000 units Levothyroxine Sodium (Synthroid) 125 mcg PO DAILY@0630 [facility] Last Admin: 10/02/18 05:43 Dose: 125 mcg Ondansetron HCl (Zofran Inj) 4 mg IVP Q6 PRN PRN Reason: Nausea/Vomiting Tamsulosin HCl (Flomax) 0.4 mg PO DAILY [facility] Last Admin: 10/02/18 10:19 Dose: 0.4 mg - Labs Labs: 10/02/18 06:36 10/02/18 06:36 PT 13.9 SECONDS (9.7-12.2) H 09/29/18 23:34 INR 1.3 09/29/18 23:34 APTT 30 SECONDS (21-34) 09/29/18 23:34 Attending/Attestation - Attestation I have personally seen and examined this patient.: Yes I have fully participated in the care of the patient.: Yes I have reviewed all pertinent clinical information, including history, physical exam and plan: Yes Notes (Text): 10/02/18 12:28 I have seen and examined patient with GI fellow. He is seen resting in bed comfortably, denies abdominal pain, nausea, vomiting, fever/chills. Tolerating PO liquids without difficulty. Review of vitals from today are normal. ESRD on HD CHF Hypothyroidism Ascites, unclear etiology, s/p paracentesis - Low sodium renal diet as tolerated - Ascitic fluid shows no presence of SBP, awaiting additional study results - Awaiting EGD biopsy results - No further planned GI intervention at this time, patient would benefit from a dditional outpatient follow up. Will sign off case, please reconsult as necessary, thank you.
--- NOTE | 2018-10-02 09:59 | CP.PCM.PN ---
Subjective - Date & Time of Evaluation Date of Evaluation: 10/02/18 Time of Evaluation: 09:55 - Subjective Subjective: Sherrie Atwood PGY1 Progress Note for Dr. Lauren Pt was examined at bedside this morning. He reports improvement in the abdominal distention. He denies chest pain, shortness of breath, chills, abdominal pain, nausea, vomiting, diarrhea, dysuria. Objective - Vital Signs/Intake and Output Vital Signs (last 24 hours): Temp Pulse Resp BP Pulse Ox 97.6 F 63 20 100/66 100 10/02/18 07:00 10/02/18 07:00 10/02/18 07:00 10/02/18 07:00 10/02/18 07:00 Intake and Output: 10/02/18 10/02/18 06:59 18:59 Intake Total 240 Balance 240 - Medications Medications: Current Medications Aspirin (Ecotrin) 81 mg PO DAILY [facility] Last Admin: 10/01/18 10:58 Dose: Not Given Calcium Acetate (Phoslo) 667 mg PO TIDCC [facility] Last Admin: 10/02/18 08:27 Dose: 667 mg Carvedilol (Coreg) 6.25 mg PO BID [facility] Last Admin: 10/01/18 18:00 Dose: 6.25 mg Enalapril Maleate (Vasotec) 2.5 mg PO DAILY [facility] Last Admin: 10/01/18 10:59 Dose: Not Given Famotidine (Pepcid) 20 mg PO BID [facility] Last Admin: 10/01/18 18:00 Dose: 20 mg Heparin Sodium (Porcine) (Heparin) 5,000 units SC Q12 [facility] Last Admin: 10/01/18 23:53 Dose: 5,000 units Levothyroxine Sodium (Synthroid) 125 mcg PO DAILY@0630 [facility] Last Admin: 10/02/18 05:43 Dose: 125 mcg Ondansetron HCl (Zofran Inj) 4 mg IVP Q6 PRN PRN Reason: Nausea/Vomiting Tamsulosin HCl (Flomax) 0.4 mg PO DAILY [facility] Last Admin: 10/01/18 10:58 Dose: Not Given - Labs Labs: 10/02/18 06:36 10/02/18 06:36 PT 13.9 SECONDS (9.7-12.2) H 09/29/18 23:34 INR 1.3 09/29/18 23:34 APTT 30 SECONDS (21-34) 09/29/18 23:34 - Additional Findings Additional findings: - Constitutional Appears: Well, No Acute Distress - Head Exam Head Exam: ATRAUMATIC, NORMOCEPHALIC - Eye Exam Eye Exam: EOMI, Normal appearance Pupil Exam: NORMAL ACCOMODATION - ENT Exam ENT Exam: Mucous Membranes Moist - Neck Exam Neck Exam: Full ROM - Respiratory Exam Respiratory Exam: Clear to Ausculation Bilateral, NORMAL BREATHING PATTERN. ab sent: Rales, Rhonchi, Wheezes - Cardiovascular Exam Cardiovascular Exam: REGULAR RHYTHM, +S1, +S2. absent: Gallop, Rubs, Murmur - GI/Abdominal Exam GI & Abdominal Exam: Soft, Normal Bowel Sounds. absent: Tenderness, Distended. - Extremities Exam Extremities Exam: Normal Inspection. absent: Pedal Edema - Neurological Exam Neurological Exam: Alert, Awake, Oriented x3 - Psychiatric Exam Psychiatric exam: Normal Affect, Normal Mood - Skin Skin Exam: Normal Color Assessment and Plan - Assessment and Plan (Free Text) Assessment: 68yo M with PMH ESRD and HTN presented to ED with abdominal distention, admitted for further evaluation and treatment of ascites. S/p EGD 10/01/18 showing gastritis and duodenitis. S/p paracentesis 10/01/18 w/ IR. on HD MWF schedule. Awaiting EGD bx results. Plan: Ascites - CT abd/pel: large pelvic ascites. moderate pleural effusion greater on R. b/l renal cortical atrophy. parapelvic cysts. - s/p EGD 10/01/18: gastritis w/ bx taken, duodenitis - s/p paracentesis 10/01/18: 5.5L fluid removed - likely cardiac origin - Zofran 4mg IV q6h PRN nausea - ascitic fluid studies: unlikely SBO, f/u remaining studies - f/u ECHO reading - f/u FOBT - GI consulted, Dr. Jasvir stovall appreciated - signed off, recommending outpatient follow up ESRD - CT abd/pel: large pelvic ascites. moderate pleural effusion greater on R. b/l renal cortical atrophy. parapelvic cysts. - s/p HD, MWF schedule - BUN/Cr 35/5.1 - Phsolo 667mg PO ACHS - Nephro consulted, Dr. Banks - f/u recs Systolic CHF - ECHO (02/15): EF 20-25% - pt with ascites - f/u repeat ECHO reading HTN - ASA 81mg PO Daily - Coreg 6.25mg PO BID - Vasotec 2.5mg PO daily H/o hypothyroid - TSH 12.9 - Free T4 wnl - Synthroid 125mcg PO daily PPx GI: pepcid 20 BID DVT: Heparin 5000u sc q12 Hepatic/Renal Diet Case reviewed with Dr. Lauren
--- NOTE | 2018-10-02 14:22 | CP.PCM.PN ---
Subjective - Date & Time of Evaluation Date of Evaluation: 10/02/18 Time of Evaluation: 14:19 - Subjective Subjective: s/p paracentesis- UF 5500ml for dialysis now s/p echo- await results liver not small on US less abdominal pains Objective - Vital Signs/Intake and Output Vital Signs (last 24 hours): Temp Pulse Resp BP Pulse Ox 97.6 F 63 20 100/66 100 10/02/18 07:00 10/02/18 07:00 10/02/18 07:00 10/02/18 07:00 10/02/18 07:00 Intake and Output: 10/02/18 10/02/18 06:59 18:59 Intake Total 240 Balance 240 - Medications Medications: Current Medications Aspirin (Ecotrin) 81 mg PO DAILY [facility] Last Admin: 10/02/18 10:19 Dose: 81 mg Calcium Acetate (Phoslo) 667 mg PO TIDCC [facility] Last Admin: 10/02/18 13:59 Dose: 667 mg Carvedilol (Coreg) 6.25 mg PO BID [facility] Last Admin: 10/02/18 10:22 Dose: Not Given Enalapril Maleate (Vasotec) 2.5 mg PO DAILY [facility] Last Admin: 10/02/18 10:23 Dose: Not Given Famotidine (Pepcid) 20 mg PO DAILY [facility] Heparin Sodium (Porcine) (Heparin) 5,000 units SC Q12 [facility] Last Admin: 10/02/18 10:19 Dose: 5,000 units Levothyroxine Sodium (Synthroid) 125 mcg PO DAILY@0630 [facility] Last Admin: 10/02/18 05:43 Dose: 125 mcg Ondansetron HCl (Zofran Inj) 4 mg IVP Q6 PRN PRN Reason: Nausea/Vomiting Tamsulosin HCl (Flomax) 0.4 mg PO DAILY [facility] Last Admin: 10/02/18 10:19 Dose: 0.4 mg - Labs Labs: 10/02/18 06:36 10/02/18 06:36 PT 13.9 SECONDS (9.7-12.2) H 09/29/18 23:34 INR 1.3 09/29/18 23:34 APTT 30 SECONDS (21-34) 09/29/18 23:34 - Constitutional Appears: No Acute Distress, Chronically Ill - Head Exam Head Exam: ATRAUMATIC, NORMAL INSPECTION - Eye Exam Eye Exam: Normal appearance - Neck Exam Neck Exam: Normal Inspection. absent: Tenderness - Respiratory Exam Respiratory Exam: Clear to Ausculation Bilateral, NORMAL BREATHING PATTERN - Cardiovascular Exam Cardiovascular Exam: REGULAR RHYTHM, +S1 - GI/Abdominal Exam GI & Abdominal Exam: Soft. absent: Tenderness - Extremities Exam Extremities Exam: Normal Inspection. absent: Tenderness - Neurological Exam Neurological Exam: Awake, CN II-XII Intact - Skin Skin Exam: Dry, Warm Assessment and Plan (1) ESRD (end stage renal disease) Status: Acute (2) Hypertensive chronic kidney disease with stage 5 chronic kidney disease or end stage renal disease Status: Acute (3) CHF (congestive heart failure) Status: Acute (4) Pulmonary HTN Status: Acute (5) Hypothyroidism Status: Chronic - Assessment and Plan (Free Text) Plan: Dialysis with increased UF goal check echo, EGD resultsBP low- lower dosage meds follow up labs
--- NOTE | 2018-10-02 18:33 | CARD ---
APPROVED REPORT Date of service: 10/02/2018 EXAM: LIMITED Two-dimensional and M-mode echocardiogram. Other Information Quality : GoodRhythm : INDICATION Peripheral Edema Congestive Heart Failure substance abuse, arthritis, Ascites RISK FACTORS Hypertension Hyperlipidemia 2D DIMENSIONS IVSd1.2 (0.7-1.1cm)LVDd5.2 (3.9-5.9cm) PWd1.0 (0.7-1.1cm)LVDs4.8 (2.5-4.0cm) FS (%) 6.6 %LVEF (%)14.6 (>50%) M-Mode DIMENSIONS IVSd1.13 (0.7-1.1cm)LVDd4.38 (4.0-5.6cm) PWd1.26 (0.7-1.1cm)FS (%) 6 % LVDs4.14 (2.0-3.8cm)LVEF (%)15 (>50%) Mitral Valve E/A ratio0.0 TDI E/Lateral E'0.0E/Medial E'0.0 <Conclusion> Limited study and views, no doppler Left ventricualr systolic function is markedly reduced, with diffuse hypokinesis. EF by Painting's rule is 26%, but looks worse. There is flattening of the septum is c/w elevated RV pressure. There is likely signficant pulmonary HTN Moderately reduced RV systolic function with mildy dilated RV Markedly dialted right atrium. Trivial pericardial effusion. Large pleural effusion. The study should be repeated with dpoppler to assess for valvular regurgitation, estimate PA systolic pressures, and assess for diastolic likely diastolic dysfunction.
[2018-10-02 21:41] VITALS: RESP 20
[2018-10-03] MEDS: Levothyroxine 125 MCG TAB PO SCH (05:47)
[2018-10-03 06:51] LABS: BASO # 0.1 K/uL (0.0-0.2); BASO % 1.5 % (0.0-2.0); EOS # 0.2 K/uL (0.0-0.7); EOS % 5.7 % (0.0-4.0); HEMOGLOBIN 13.5 g/dL (12.0-18.0); LYMPH # 0.8 K/uL (1.0-4.3); LYMPH % 20.2 % (20.0-40.0); MEAN CELL VOLUME 95.8 fL (80.0-94.0); MEAN CORPUSCULAR HEMOGLOBIN 31.7 pg (27.0-31.0); MONO # 0.3 K/uL (0.0-0.8); MONO % 7.5 % (0.0-10.0); NEUT # 2.7 K/uL (1.8-7.0); NEUT % 65.1 % (50.0-75.0); NRBC % 0.2 % (0.0-2.0); RBC 4.25 Mil/uL (4.40-5.90); RED CELL DISTRIBUTION WIDTH 16.6 % (11.5-14.5); WHITE BLOOD COUNT 4.1 K/uL (4.8-10.8)
[2018-10-03 07:36] LABS: ALB/GLOB RATIO 1.2 (1.0-2.1); ALBUMIN 3.9 g/dL (3.5-5.0); CALCIUM 8.6 mg/dl (8.6-10.4)
[2018-10-03 08:21] VITALS: O2SAT 100
--- NOTE | 2018-10-03 09:34 | CP.PCM.PN ---
Subjective - Date & Time of Evaluation Date of Evaluation: 10/03/18 Time of Evaluation: 09:31 - Subjective Subjective: 68yo M with PMH ESRD and HTN presented to ED with abdominal distention, admitted for further evaluation and treatment of ascites. S/p EGD 10/01/18 showing gastritis and duodenitis. S/p paracentesis 10/01/18 w/ IR. on HD MWF schedule. 10/03 Notes reviewed Sitting up out of bed in room Tolerating diet No abdominal pain reported No overnight events Tolerated dialysis well 10/02 No new complaints No f/c, no n/v/d 10 point ros negative other than stated above Objective - Vital Signs/Intake and Output Vital Signs (last 24 hours): Temp Pulse Resp BP Pulse Ox 97.6 F 66 20 106/68 100 10/03/18 07:00 10/03/18 07:00 10/03/18 07:00 10/03/18 07:00 10/03/18 07:00 Intake and Output: 10/03/18 10/03/18 06:59 18:59 Intake Total 240 Balance 240 - Medications Medications: Current Medications Aspirin (Ecotrin) 81 mg PO DAILY [facility] Last Admin: 10/02/18 10:19 Dose: 81 mg Calcium Acetate (Phoslo) 667 mg PO TIDCC [facility] Last Admin: 10/03/18 07:59 Dose: 667 mg Carvedilol (Coreg) 3.125 mg PO BID [facility] Last Admin: 10/02/18 21:37 Dose: 3.125 mg Enalapril Maleate (Vasotec) 2.5 mg PO DAILY [facility] Last Admin: 10/02/18 10:23 Dose: Not Given Famotidine (Pepcid) 20 mg PO DAILY [facility] Heparin Sodium (Porcine) (Heparin) 5,000 units SC Q12 [facility] Last Admin: 10/02/18 21:35 Dose: 5,000 units Levothyroxine Sodium (Synthroid) 125 mcg PO DAILY@0630 [facility] Last Admin: 10/03/18 05:47 Dose: 125 mcg Ondansetron HCl (Zofran Inj) 4 mg IVP Q6 PRN PRN Reason: Nausea/Vomiting Tamsulosin HCl (Flomax) 0.4 mg PO DAILY [facility] Last Admin: 10/02/18 10:19 Dose: 0.4 mg - Labs Labs: 10/03/18 06:44 10/03/18 06:44 PT 13.9 SECONDS (9.7-12.2) H 09/29/18 23:34 INR 1.3 09/29/18 23:34 APTT 30 SECONDS (21-34) 09/29/18 23:34 - Constitutional Appears: Non-toxic, Chronically Ill - Head Exam Head Exam: ATRAUMATIC, NORMOCEPHALIC - Eye Exam Eye Exam: EOMI, Normal appearance - ENT Exam ENT Exam: Mucous Membranes Moist, Normal Oropharynx - Neck Exam Neck Exam: absent: Lymphadenopathy, Thyromegaly - Respiratory Exam Respiratory Exam: Clear to Ausculation Bilateral. absent: Rales, Rhonchi - Cardiovascular Exam Cardiovascular Exam: +S1, +S2. absent: Rubs - GI/Abdominal Exam GI & Abdominal Exam: Distended, Soft, Normal Bowel Sounds - Extremities Exam Extremities Exam: absent: Joint Swelling, Pedal Edema - Neurological Exam Neurological Exam: Alert, Awake - Psychiatric Exam Psychiatric exam: Normal Affect, Normal Mood - Skin Skin Exam: Dry, Intact Assessment and Plan (1) Ascites Status: Acute (2) ESRD (end stage renal disease) Status: Acute (3) Pulmonary HTN Status: Acute (4) Anemia Status: Chronic (5) Hypertension Status: Chronic - Assessment and Plan (Free Text) Assessment: Maintain dialysis schedule, next treatment 10/05 Bp low, consider holding aubrey i Labs with dialysis Continue current care
--- NOTE | 2018-10-03 09:38 | CP.PCM.PN ---
Subjective - Date & Time of Evaluation Date of Evaluation: 10/03/18 Time of Evaluation: 09:38 - Subjective Subjective: Progress note for Dr. Lauren Patient was seen and examined at bedside in no acute distress. Patient reports feeling better and no longer has abdominal pain. He had a normal BM last night, blood in stool. The patient denies chest pain, palpitations, dyspnea, nausea, vomiting, fevers, headaches, dizziness, dysuria, and diarrhea. Objective - Vital Signs/Intake and Output Vital Signs (last 24 hours): Temp Pulse Resp BP Pulse Ox 97.6 F 66 20 106/68 100 10/03/18 07:00 10/03/18 07:00 10/03/18 07:00 10/03/18 07:00 10/03/18 07:00 Intake and Output: 10/03/18 10/03/18 06:59 18:59 Intake Total 240 Balance 240 - Medications Medications: Current Medications Aspirin (Ecotrin) 81 mg PO DAILY [facility] Last Admin: 10/02/18 10:19 Dose: 81 mg Calcium Acetate (Phoslo) 667 mg PO TIDCC [facility] Last Admin: 10/03/18 07:59 Dose: 667 mg Carvedilol (Coreg) 3.125 mg PO BID [facility] Last Admin: 10/02/18 21:37 Dose: 3.125 mg Enalapril Maleate (Vasotec) 2.5 mg PO DAILY [facility] Last Admin: 10/02/18 10:23 Dose: Not Given Famotidine (Pepcid) 20 mg PO DAILY [facility] Heparin Sodium (Porcine) (Heparin) 5,000 units SC Q12 [facility] Last Admin: 10/02/18 21:35 Dose: 5,000 units Levothyroxine Sodium (Synthroid) 125 mcg PO DAILY@0630 [facility] Last Admin: 10/03/18 05:47 Dose: 125 mcg Ondansetron HCl (Zofran Inj) 4 mg IVP Q6 PRN PRN Reason: Nausea/Vomiting Tamsulosin HCl (Flomax) 0.4 mg PO DAILY [facility] Last Admin: 10/02/18 10:19 Dose: 0.4 mg - Labs Labs: 10/03/18 06:44 10/03/18 06:44 PT 13.9 SECONDS (9.7-12.2) H 09/29/18 23:34 INR 1.3 09/29/18 23:34 APTT 30 SECONDS (21-34) 09/29/18 23:34 - Constitutional Appears: No Acute Distress - Head Exam Head Exam: NORMAL INSPECTION, NORMOCEPHALIC - Eye Exam Eye Exam: EOMI - ENT Exam ENT Exam: Mucous Membranes Moist - Respiratory Exam Respiratory Exam: Clear to Ausculation Bilateral, NORMAL BREATHING PATTERN. absent: Rales, Rhonchi, Wheezes, Respiratory Distress - Cardiovascular Exam Cardiovascular Exam: +S1, +S2, Murmur - GI/Abdominal Exam GI & Abdominal Exam: Distended (mild), Soft, Normal Bowel Sounds. absent: Firm, Guarding, Tenderness - Extremities Exam Extremities Exam: absent: Pedal Edema, Tenderness - Neurological Exam Neurological Exam: Alert, Awake, Oriented x3 - Psychiatric Exam Psychiatric exam: Normal Affect, Normal Mood - Skin Skin Exam: Dry, Normal Color, Warm Assessment and Plan - Assessment and Plan (Free Text) Plan: 68yo M with PMH ESRD and HTN presented to ED with abdominal distention, admitted for further evaluation and treatment of ascites. S/p EGD 10/01/18 showing gastritis and duodenitis. S/p paracentesis 10/01/18 w/ IR. on HD MWF schedule. Awaiting EGD bx results. Plan: Ascites - likely cardiac origin - CT abd/pel: large pelvic ascites. moderate pleural effusion greater on R. b/l renal cortical atrophy. parapelvic cysts. - s/p EGD 10/01/18: gastritis w/ bx taken, duodenitis - s/p paracentesis 10/01/18: 5.5L fluid removed - ascitic fluid studies: wbc 111, rbc 4680, cell count 100, neutrophils 5, lymphocytes 93, mono/macro 2; moderate macrophages and few mesothelial cells. - Zofran 4mg IV q6h PRN nausea - ECHO: limited study; LV systolic function markedly rduced with diffuse hypokinesis; EF by Simpsons rule 26%, but looks worse; flattening of septum is c/w elevated RV pressure; likely significant pulm HTN; moderately reduced RV systolic function w/mildly dilated RV; markedly dilated RA; trivial pericardial effusion; large pleural effusion; recommends repeat study with doppler. - FOBT: negative - GI consulted, Dr. Jasvir stovall appreciated - signed off, recommending outpatient follow up ESRD - CT abd/pel: large pelvic ascites. moderate pleural effusion greater on R. b/l renal cortical atrophy. parapelvic cysts. - s/p HD, MWF schedule - BUN/Cr 35/5.1 - Phsolo 667mg PO ACHS - Nephro consulted, Dr. Banks - f/u recs Systolic CHF - ECHO (02/15): EF 20-25% - pt with ascites - ECHO: limited study; LV systolic function markedly rduced with diffuse hypokinesis; EF by Simpsons rule 26%, but looks worse; flattening of septum is c/w elevated RV pressure; likely significant pulm HTN; moderately reduced RV systolic function w/mildly dilated RV; markedly dilated RA; trivial pericardial effusion; large pleural effusion; recommends repeat study with doppler. HTN - ASA 81mg PO Daily - Coreg 6.25mg PO BID - Vasotec 2.5mg PO daily H/o hypothyroid - TSH 12.9 - Free T4 wnl - Synthroid 125mcg PO daily PPx - GI: pepcid 20 BID - DVT: Heparin 5000u sc q12 - Hepatic/Renal Diet Case discussed with Dr. Leonidas Guzman, PGY2
--- NOTE | 2018-10-03 17:48 | CARD ---
APPROVED REPORT Date of service: 09/30/2018 EKG Measurement Heart [id number] <Conclusion> Normal sinus rhythm Left axis deviation Prolonged QT Abnormal ECG
[2018-10-04] MEDS: Levothyroxine 125 MCG TAB PO SCH (06:18)
[2018-10-04 08:19] LABS: BASO % 1.1 % (0.0-2.0); EOS # 0.3 K/uL (0.0-0.7); EOS % 6.8 % (0.0-4.0); LYMPH # 0.9 K/uL (1.0-4.3); MEAN CORPUSCULAR HEMOGLOBIN 32.1 pg (27.0-31.0); MEAN CORPUSCULAR HGB CONC 33.8 g/dL (33.0-37.0); MEAN PLATELET VOLUME 9.2 fL (7.2-11.7); MONO # 0.5 K/uL (0.0-0.8); MONO % 10.4 % (0.0-10.0); NEUT # 2.6 K/uL (1.8-7.0); NEUT % 60.7 % (50.0-75.0); NRBC % 0.1 % (0.0-2.0); RBC 3.59 Mil/uL (4.40-5.90); RED CELL DISTRIBUTION WIDTH 16.6 % (11.5-14.5); WHITE BLOOD COUNT 4.3 K/uL (4.8-10.8)
[2018-10-04 08:21] LABS: HEMOGLOBIN 11.5 g/dL (12.0-18.0)
[2018-10-04 08:22] LABS: ALB/GLOB RATIO 1.2 (1.0-2.1); ALBUMIN 3.4 g/dL (3.5-5.0); CALCIUM 8.2 mg/dl (8.6-10.4)
--- NOTE | 2018-10-04 08:48 | CP.PCM.PN ---
Subjective - Date & Time of Evaluation Date of Evaluation: 10/04/18 Time of Evaluation: 08:47 Objective - Vital Signs/Intake and Output Vital Signs (last 24 hours): Temp Pulse Resp BP Pulse Ox 97.8 F 68 20 107/71 100 10/03/18 23:25 10/03/18 23:25 10/03/18 23:25 10/03/18 23:25 10/03/18 23:25 Intake and Output: 10/04/18 10/04/18 06:59 18:59 Intake Total 500 Balance 500 - Medications Medications: Current Medications Aspirin (Ecotrin) 81 mg PO DAILY [facility] Last Admin: 10/03/18 10:19 Dose: 81 mg Calcium Acetate (Phoslo) 667 mg PO TIDCC [facility] Last Admin: 10/04/18 08:15 Dose: 667 mg Carvedilol (Coreg) 3.125 mg PO BID [facility] Last Admin: 10/03/18 18:01 Dose: 3.125 mg Enalapril Maleate (Vasotec) 2.5 mg PO DAILY [facility] Last Admin: 10/03/18 10:20 Dose: 2.5 mg Famotidine (Pepcid) 20 mg PO DAILY [facility] Last Admin: 10/03/18 10:19 Dose: 20 mg Levothyroxine Sodium (Synthroid) 125 mcg PO DAILY@0630 [facility] Last Admin: 10/04/18 06:18 Dose: 125 mcg Ondansetron HCl (Zofran Inj) 4 mg IVP Q6 PRN PRN Reason: Nausea/Vomiting Tamsulosin HCl (Flomax) 0.4 mg PO DAILY [facility] Last Admin: 10/03/18 10:19 Dose: 0.4 mg - Labs Labs: 10/04/18 07:50 10/04/18 07:50 PT 13.9 SECONDS (9.7-12.2) H 09/29/18 23:34 INR 1.3 09/29/18 23:34 APTT 30 SECONDS (21-34) 09/29/18 23:34
[2018-10-04 09:01] VITALS: BP 125/78; PULSE 71; TEMP 97.3
--- NOTE | 2018-10-04 15:42 | CP.PCM.DIS ---
Provider - Provider Date of Admission: 09/30/18 03:05 Attending physician: Donell Lauren Jr, MD Consults: 09/30/18 14:53 Neurology Consult Routine Comment: Consulting Provider: Robert Banks Consulting Physician: Robert Banks Reason for Consult: HD Time Spent in preparation of Discharge (in minutes): 45 Hospital Course - Lab Results Lab Results: Micro Results 10/01/18 14:38 Peritoneal Fluid Gram Stain - Final 10/01/18 14:38 Peritoneal Fluid Body Fluid Culture - Preliminary NO GROWTH AFTER 3 DAYS 10/01/18 14:38 Other: Please Indicate Mycobacterial Culture - Preliminary 10/01/18 14:38 Other: Please Indicate Fungal Culture - Preliminary Most Recent Lab Values WBC 4.3 K/uL (4.8-10.8) L 10/04/18 07:50 RBC 3.59 Mil/uL (4.40-5.90) L 10/04/18 07:50 Hgb 11.5 g/dL (12.0-18.0) L D 10/04/18 07:50 Hct 34.1 % (35.0-51.0) L 10/04/18 07:50 MCV 95.0 fL (80.0-94.0) H 10/04/18 07:50 MCH 32.1 pg (27.0-31.0) H 10/04/18 07:50 MCHC 33.8 g/dL (33.0-37.0) 10/04/18 07:50 RDW 16.6 % (11.5-14.5) H 10/04/18 07:50 Plt Count 134 K/uL (130-400) 10/04/18 07:50 MPV 9.2 fL (7.2-11.7) 10/04/18 07:50 Neut % (Auto) 60.7 % (50.0-75.0) 10/04/18 07:50 Lymph % (Auto) 21.0 % (20.0-40.0) 10/04/18 07:50 [place] % (Auto) 10.4 % (0.0-10.0) H 10/04/18 07:50 Eos % (Auto) 6.8 % (0.0-4.0) H 10/04/18 07:50 Baso % (Auto) 1.1 % (0.0-2.0) 10/04/18 07:50 Neut # (Auto) 2.6 K/uL (1.8-7.0) 10/04/18 07:50 Lymph # (Auto) 0.9 K/uL (1.0-4.3) L 10/04/18 07:50 [place] # (Auto) 0.5 K/uL (0.0-0.8) 10/04/18 07:50 Eos # (Auto) 0.3 K/uL (0.0-0.7) 10/04/18 07:50 Baso # (Auto) 0.0 K/uL (0.0-0.2) 10/04/18 07:50 PT 13.9 SECONDS (9.7-12.2) H 09/29/18 23:34 INR 1.3 09/29/18 23:34 APTT 30 SECONDS (21-34) 09/29/18 23:34 Sodium 131 mmol/L (132-148) L 10/04/18 07:50 Potassium 4.9 mmol/L (3.6-5.2) 10/04/18 07:50 Chloride 93 mmol/L (98-107) L 10/04/18 07:50 Carbon Dioxide 27 mmol/L (22-30) 10/04/18 07:50 Anion Gap 16 (10-20) 10/04/18 07:50 BUN 44 mg/dL (9-20) H 10/04/18 07:50 Creatinine 5.8 mg/dL (0.8-1.5) H 10/04/18 07:50 Est GFR ( Amer) 12 10/04/18 07:50 Est GFR (Non-Af Amer) 10 10/04/18 07:50 Random Glucose 84 mg/dL (75-110) 10/04/18 07:50 Calcium 8.2 mg/dl (8.6-10.4) L 10/04/18 07:50 Phosphorus 4.1 mg/dL (2.5-4.5) 10/03/18 06:44 Total Bilirubin 0.8 mg/dL (0.2-1.3) 10/04/18 07:50 GGT 105 U/L (8-78) H 10/01/18 07:22 AST 18 U/L (17-59) 10/04/18 07:50 ALT 19 U/L (21-72) L 10/04/18 07:50 Alkaline Phosphatase 126 U/L (38-126) 10/04/18 07:50 Ammonia 29 umol/L (9-33) 09/30/18 01:34 Total Protein 6.2 g/dL (6.3-8.3) L 10/04/18 07:50 Albumin 3.4 g/dL (3.5-5.0) L 10/04/18 07:50 Globulin 2.8 gm/dL (2.2-3.9) 10/04/18 07:50 Albumin/Globulin Ratio 1.2 (1.0-2.1) 10/04/18 07:50 Lipase 146 U/L (23-300) 09/30/18 11:32 Free T4 1.42 ng/dL (0.78-2.19) 10/01/18 07:22 TSH 3rd Generation 12.90 mIU/L (0.46-4.68) H 10/01/18 07:22 Fluid Source Peritoneal 10/01/18 14:38 Fluid Appearance Sl cloudy (CLEAR) 10/01/18 14:38 Fluid WBC 111.0 /mm3 (0.0-300.0) 10/01/18 14:38 Fluid RBC 4680.0 /mm3 (0.0-0.0) H 10/01/18 14:38 Fluid Tot Cell Count 100 (0-0) H 10/01/18 14:38 Fluid Neutrophils 5.0 % (0-0) H 10/01/18 14:38 Fluid Lymphocytes 93.0 % (0-0) H 10/01/18 14:38 Fld Monocyte/Macrophag 2 % (0-0) H 10/01/18 14:38 Fluid Comment 10/01/18 14:38 Peritoneal Tot Protein 4.0 g/dL 10/01/18 14:38 Peritoneal LDH 158 U/L (<63) H 10/01/18 14:38 Peritoneal Glucose 101 mg/dL 10/01/18 14:38 Peritoneal Amylase 36 U/L 10/01/18 14:38 Peritoneal Lipase 10.0 U/L (<10) H 10/01/18 14:38 Stool Occult Blood Negative (NEGATIVE) 10/02/18 16:37 - Hospital Course Hospital Course: HPI: Patient is a 68 year old male with pmhx of ESRD(MWF), arthritis, HTN, hypothyroidism, systolic CHF, and BPH presenting to the ED with complaints of worsening abdominal distention and diarrhea x1 week. Patient reports BMs are soft and watery, consisting of black stools, with large egg sized clumps of white dough like matter. Patient reports increase in frequency of BMs, approximately 10 per day, with multiple awakenings at night. Pt reports never having received a colonoscopy or endoscopy. Patient denies headache, dizziness, chest pain, SOB. Hospital course: 68yo M with PMH ESRD and HTN presented to ED with abdominal distention, admitted for further evaluation and treatment of ascites. Abdomen and pelvis CT showed large pelvic ascites, moderate pleural effusion greater on R, b/l renal cortical atrophy, and parapelvic cysts. GI was consulted, Dr. Tay. Patient is s/p EGD 10/01/18 which showed gastritis and duodenitis. Awaiting EGD bx results (will have to receive results as outpatient). Patient also had a paracentesis on 10/01/18 w/IR. Patient's abdominal distention and discomfort resolved post paracentesis. Echo was ordered and showed LV systolic function markedly reduced with diffuse hypokinesis; EF by Simpsons rule 26%, but looks worse; flattening of septum is c/w elevated RV pressure; likely significant pulm HTN; moderately reduced RV systolic function w/mildly dilated RV; markedly dilated RA; trivial pericardial effusion; large pleural effusion. Ascites and fluid overload likely due to cardiac origin. Nephrology was consulted for patients history of ESRD on HD. Patient is scheduled for HD on MWF- continued that schedule while in the hospital. Patient was continued on medications for HTN throughout hospital course: coreg and vasotec. Patient's Coreg was decreased from 6.25 to 3.125mg PO BID by nephrology. Patient home medication synthroid 125mcg was also continue throughout hospital course. Patient is stable for discharge per Dr. Lauren. Patient instructed to continue his medications and to follow up with Dr. Lauren for continued outpatient care. Patient also instructed to continue HD schedule of MWF. This is a brief summary of the hospital course. Please see EMR for full details. Discharge Exam - Additional Findings Additional findings: - Constitutional Appears: No Acute Distress - Head Exam Head Exam: NORMAL INSPECTION, NORMOCEPHALIC - Eye Exam Eye Exam: EOMI - ENT Exam ENT Exam: Mucous Membranes Moist - Respiratory Exam Respiratory Exam: Clear to Ausculation Bilateral, NORMAL BREATHING PATTERN. absent: Rales, Rhonchi, Wheezes, Respiratory Distress - Cardiovascular Exam Cardiovascular Exam: +S1, +S2, Murmur - GI/Abdominal Exam GI & Abdominal Exam: Soft, Normal Bowel Sounds, dressing- clean,dry,intact. abs ent: Firm, Guarding, Tenderness - Extremities Exam Extremities Exam: absent: Pedal Edema, Tenderness - Neurological Exam Neurological Exam: Alert, Awake, Oriented x3 - Psychiatric Exam Psychiatric exam: Normal Affect, Normal Mood - Skin Skin Exam: Dry, Normal Color, Warm Discharge Plan - Discharge Medications Prescriptions: Aspirin [Ecotrin] 81 mg PO DAILY #30 tabec Carvedilol [Coreg] 3.125 mg PO BID #60 tab Enalapril Maleate [Vasotec] 2.5 mg PO DAILY #30 tab Levothyroxine [Synthroid] 125 mcg PO DAILY@0630 #30 tab Tamsulosin [Flomax] 0.4 mg PO DAILY #30 cap - Follow Up Plan Condition: FAIR Disposition: HOME/ ROUTINE Instructions: Constipation, Adult (DC), Fluid in the Belly (Ascites) (DC), End Stage Kidney Disease (DC), Acute Abdominal Pain (DC) Additional Instructions: Patient is stable for discharge to home per Dr. Lauren. Patient must continue home medications: 1. Aspirin 81mg PO daily 2. Phoslo 667mg PO TID 3. Coreg 3.125mg PO BID 4. Enalapril (Vasotec) 2.5mg PO daily 5. Synthroid 125mcg PO daily 6. Flomax 0.4mg PO daily Patient must follow up with Dr. Lauren in 1 week for further management and outpatient follow up. Patient must continue dialysis schedule (MWF) and follow up with their regulatory associate. If symptoms worsen or reoccur, patient should return to the nearest ER. El paciente debe continuar con los medicamentos en casa: 1. Aspirina 81mg PO diario 2. Phoslo 667mg PO sonny veces al da. 3. Coreg 3.125mg PO dos veces al da 4. Enalapril (Vasotec) 2.5mg PO diario 5. Synthroid 125mcg PO diario 6. Flomax 0.4mg PO diario El paciente debe realizar un seguimiento con el Dr. Lauren en 1 semana para un tratamiento adicional y un seguimiento ambulatorio. El paciente debe continuar con el programa de dilisis (MWF) y hacer un seguimiento con rader nefrlogo. Si los sntomas empeoran o reaparecen, el paciente debe regresar a la chel de emergencias ms cercana. Referrals: Donell Lauren Jr., MD [Medical Doctor] -
--- NOTE | 2018-10-23 09:51 | PQF ---
PROVIDER RESPONSE TEXT: EGD findings: Gastritis and duodenitis REVIEWER QUERY TEXT: Clarification of Clinical Diagnostic Findings Please clarify documentation or clinical relevance for the clinical / diagnostic findings or whether those are insignificant or unable to be further specified. The patient's Clinical Indicators include: ADMITTED WITH ABD PAIN==EGD CHRONIC GASTRITIS WITH BLEEDING ASCITES PARACENTESIS - FOR MALIGNANCY CONSTIPATION PLEASE CLARIFY AND DOCUMENT THE EGD FINDINGS IF YOU AGREE. Query created by: Yomaira Garcia on 10/06/2018 11:49 AM Electronically signed by: Donell Lauren MD 10/23/2018 9:49 AM
== END 2018-10-04 18:45 | disposition home or self-care (01) | DRG 377 ==
LOC: C.ER 22:01 → C.9E 09-30 03:05 → C.6T 09-30 04:33
PROVIDERS: ADMIT Internal Medicine; ATTEND Internal Medicine
PROC: 5A1D70Z Performance of Urinary Filtration, Intermittent, Less than 6 Hours Per Day (ICD-10-PCS; 2018-09-30)
PROC: 0DB68ZX Excision of Stomach, Via Natural or Artificial Opening Endoscopic, Diagnostic (ICD-10-PCS; 2018-10-01)
PROC: 0W9G3ZZ Drainage of Peritoneal Cavity, Percutaneous Approach (ICD-10-PCS; principal; 2018-10-01 09:36)
PROC: 5A1D70Z Performance of Urinary Filtration, Intermittent, Less than 6 Hours Per Day (ICD-10-PCS; 2018-10-02)
DX: K29.51 Unspecified chronic gastritis with bleeding (principal); N18.6 End stage renal disease; R18.8 Other ascites; I13.2 Hypertensive heart and chronic kidney disease with heart failure and with stage 5 chronic kidney disease, or end stage renal disease; I50.22 Chronic systolic (congestive) heart failure; K29.80 Duodenitis without bleeding; Z68.1 Body mass index [BMI] 19.9 or less, adult; I27.20 Pulmonary hypertension, unspecified; E03.9 Hypothyroidism, unspecified; D64.9 Anemia, unspecified; K59.00 Constipation, unspecified; N40.0 Benign prostatic hyperplasia without lower urinary tract symptoms; Z91.15 Patient's noncompliance with renal dialysis; Z99.2 Dependence on renal dialysis

== ENCOUNTER 2019-01-22 10:09 | Inpatient (IN) | payer OTHER ==
[2019-01-22 10:17] VITALS: BMI 30.2
[2019-01-22 11:12] LABS: CALCIUM 9.5 mg/dl (8.6-10.4)
[2019-01-22 11:13] LABS: ALB/GLOB RATIO 1.1 (1.0-2.1); ALBUMIN 4.6 g/dL (3.5-5.0)
[2019-01-22 11:16] LABS: BASO # 0.1 K/uL (0.0-0.2); BASO % 1.2 % (0.0-2.0); EOS # 0.3 K/uL (0.0-0.7); EOS % 5.2 % (0.0-4.0); HEMOGLOBIN 12.6 g/dL (12.0-18.0); LYMPH # 0.9 K/uL (1.0-4.3); LYMPH % 17.9 % (20.0-40.0); MEAN CELL VOLUME 94.7 fL (80.0-94.0); MEAN CORPUSCULAR HEMOGLOBIN 31.6 pg (27.0-31.0); MEAN CORPUSCULAR HGB CONC 33.3 g/dL (33.0-37.0); MEAN PLATELET VOLUME 8.4 fL (7.2-11.7); MONO # 0.3 K/uL (0.0-0.8); MONO % 5.2 % (0.0-10.0); NEUT # 3.4 K/uL (1.8-7.0); NEUT % 70.5 % (50.0-75.0); NRBC % 0.3 % (0.0-2.0); RED CELL DISTRIBUTION WIDTH 15.6 % (11.5-14.5); WHITE BLOOD COUNT 4.9 K/uL (4.8-10.8)
--- NOTE | 2019-01-22 11:41 | C.PDOC ---
History Of Present Illness 68 year old male with a PMHx of ESRD (on dialysis M-W-F) and ascites, presents to the ED complaining that for the past 8 months his abdomen is becoming increasingly distended. He is also c/o 5 day h/o abdominal pain and fatigue. He was seen here and admitted on 09/29/2018 for the same complaint. Patient otherwise denies any nausea, vomiting, fever, chills, chest pain, or SOB. Last dialysis session was this morning, and patient states the entire session was completed. Time Seen by Provider: 01/22/19 10:23 Chief Complaint (Nursing): Abdominal Pain History Per: Patient History/Exam Limitations: no limitations Onset/Duration Of Symptoms: Days Current Symptoms Are (Timing): Still Present Past Medical History Reviewed: Historical Data, Nursing Documentation, Vital Signs Vital Signs: Last Vital Signs Temp 97.3 F L 01/22/19 10:17 Pulse 93 H 01/22/19 10:17 Resp 18 01/22/19 10:17 BP 144/94 H 01/22/19 10:17 Pulse Ox 99 01/22/19 10:17 Primary Care Provider: Donell Lauren Jr. - Medical History PMH: Arthritis, HTN, Hypothyroidism, Peripheral Edema (left arm and hand edema), End Stage Renal Disease, Chronic Kidney Disease Denies: Alzheimer's Disease, Anemia, Anxiety, Atrial Fibrillation, Bipolar Disorder, Cardia Arrhythmia, CHF, Crohn's Disease, Dementia, Depression, Diverticulitis, Fractures, Gastritis, Gall Bladder Disease, HIV, Hypercholesterolemia, Hyperthyroidism, Kidney Stones, Migraine, Mitral Valve Prolapse, Multiple Sclerosis, Osteoporosis, Paranoia, Parkinson's Disease, Post Traumatic Stress Disorder, Rheumatoid Arthritis, Schizophrenia, Seizures, Sickle Cell Disease, Sexually Transmitted Disease, TIA Surgical History: Cholecystectomy Denies: Appendectomy, CABG, Carotid Endarterectomy, Coronary Stent, Pacemaker, Tonsillectomy - [facility] Procedures (09/30/18) ARTHROCENTESIS (06/24/14) DIALYSIS ARTERIOVENOSTOM (06/24/14) DRAINAGE OF PERITONEAL CAVITY, PERCUTANEOUS APPROACH (09/30/18) EXCISION OF STOMACH, ENDO, DIAGN (09/30/18) HEMODIALYSIS (06/24/14) RESECTION OF GALLBLADDER, PERCUTANEOUS ENDOSCOPIC APPROACH (01/26/18) VENOUS CATHETERIZATION FOR RENAL DIALYSIS (10/03/14) Family History: States: Unknown Family Hx - Social History Hx Tobacco Use: No Hx Alcohol Use: Yes Hx Substance Use: Yes - Immunization History Hx Tetanus Toxoid Vaccination: No Hx Influenza Vaccination: No Hx Pneumococcal Vaccination: No Review Of Systems Except As Marked, All Systems Reviewed And Found Negative. Constitutional: Negative for: Fever, Chills Cardiovascular: Negative for: Chest Pain Respiratory: Negative for: Shortness of Breath Gastrointestinal: Positive for: Other (Abdominal distension). Negative for: Nausea, Vomiting, Abdominal Pain Genitourinary: Negative for: Dysuria Musculoskeletal: Negative for: Back Pain Neurological: Negative for: Weakness, Dizziness Physical Exam - Physical Exam Appears: Well, Non-toxic, No Acute Distress Skin: Warm, Dry, No Rash Head: Atraumatic, Normacephalic Eye(s): bilateral: Normal Inspection, PERRL, EOMI Neck: Normal ROM Chest: Symmetrical Cardiovascular: Rhythm Regular, No Murmur Respiratory: No Accessory Muscle Use, Rales (faint rales at the bases), No Rhonchi, No Stridor Gastrointestinal/Abdominal: Bowel Sounds (slightly decreased), Soft, No Tenderness, Distention (abdomen very distended), No Rebound Back: No CVA Tenderness Extremity: No Pedal Edema Extremity: Left: Other (AV fistula to LUE), Bilateral: Atraumatic, Normal Color And Temperature Neurological/Psych: Oriented x3, Normal Speech ED Course And Treatment - Laboratory Results Result Diagrams: 01/22/19 11:12 01/22/19 12:25 Lab Results: Total Bilirubin 1.6 mg/dL (0.2-1.3) H 01/22/19 10:56 AST 38 U/L (17-59) 01/22/19 10:56 ALT 14 U/L (21-72) L D 01/22/19 10:56 Alkaline Phosphatase 144 U/L (38-126) H 01/22/19 10:56 Total Protein 8.8 g/dL (6.3-8.3) H 01/22/19 10:56 Albumin 4.6 g/dL (3.5-5.0) 01/22/19 10:56 Globulin 4.2 gm/dL (2.2-3.9) H 01/22/19 10:56 Albumin/Globulin Ratio 1.1 (1.0-2.1) 01/22/19 10:56 Lipase 186 U/L (23-300) 01/22/19 10:56 O2 Sat by Pulse Oximetry: 99 (RA) Pulse Ox Interpretation: Normal - CT Scan/US CT Abdomen/Pelvis Other Rad Studies (CT/US): Read By Radiologist, Radiology Report Reviewed CT/US Interpretation: Accession No. : [id number]. Patient Name / ID : IBETH IRVIN / [id number]. Exam Date : 01/22/2019 11:47:04 ( Approved ). Study Comment : Sex / Age : M / [id number]. Creator : Sima Araiza. Dictator : Johnny Carlos MD. Artificial Fly Tier : Roll Wrapper : Johnny Carlos MD. Approver2 : Report Date : 01/22/2019 11:58:09. My Comment : . Date of service: 01/22/2019. PROCEDURE: CT Abdomen and Pelvis without intravenous contrast. HISTORY: abd pain. COMPARISON: 09/29/2018. TECHNIQUE: Without contrast.. Contrast dose: 0. Radiation dose: Total exam DLP = 548.04 mGy-cm. This CT exam was performed using one or more of the following dose reduction techniques: Automated exposure control, adjustment of the mA and/or kV according to patient size, and/or use of iterative reconstruction technique. FINDINGS: LOWER THORAX: Small bilateral pleural effusion. No consolidation. Calcified granuloma in the right lower lobe. Cardiomegaly. LIVER: Normal size. Smooth contour. No mass. No biliary ductal dilatation. GALLBLADDER AND BILE DUCTS: Status post cholecystectomy. PANCREAS: Unremarkable. No mass or ductal dilatation. SPLEEN: There is a solitary punctate splenic calcification consistent with an old calcified granuloma. No mass. ADRENALS: Unremarkable. KIDNEYS AND URETERS: Markedly atrophic kidneys. Mild dilatation of the right renal pelvis without calyceal dilatation. This may reflect a parapelvic cyst. There are multiple small left parapelvic renal cysts as well as several cortical cysts, the largest of which measures approximately 3.0 cm in diameter. This is unchanged from prior examination. No renal calculus. No kiko hydronephrosis. VASCULATURE: Unremarkable. No aortic aneurysm. There is atherosclerotic lefty cification of the abdominal aorta. BOWEL: No bowel obstruction. No abnormal bowel loops. APPENDIX: Not identified. PERITONEUM: Extensive ascites. LYMPH NODES: Unremarkable. No enlarged lymph nodes. BLADDER: Suboptimally distended. No gross abnormality. REPRODUCTIVE: Unremarkable prostate. BONES: No acute fracture. OTHER FINDINGS: None. IMPRESSION: Extensive ascites. Markedly atrophic kidneys with bilateral parapelvic and cortical cysts. Old calcified granulomas, right lower lobe lung and in spleen. Status post cholecystectomy. Medical Decision Making Medical Decision Making: Initial Plan: - Labs - CT Abdomen/Pelvis Labs reviewed: 10:56 K 5.9, however specimen slightly hemolyzed. Will repeat. CT shows extensive ascites. K 6.0 Patient has no complaints of chest pain or SOB. Will obtain EKG. Patient given albuterol neb and PO kayexalate. EKG: NSR at 85 bpm, left anterior fascicular block, prolonged QT EKG unchanged from prior study 06/29/18 13:[address] Lauren, will admit patient for hyperkalemia, ESRD, and ascites. resident care associate notified. 14:45 Dr. Banks evaluating patient in the ED. Agrees w/Kayexalate and albuterol. States he will arrange HD for today. Disposition Counseled Patient/Family Regarding: Studies Performed, Diagnosis - Disposition Disposition: HOSPITALIZED Disposition Time: 13:25 Condition: STABLE - Clinical Impression Clinical Impression: ESRD (end stage renal disease) on dialysis, Abdominal pain, Hyperkalemia, Ascites - Scribe Statement The provider has reviewed the documentation as recorded by the Naseem Martinez Provider Attestation: All medical record entries made by the Naseem were at my direction and personally dictated by me. I have reviewed the chart and agree that the record accurately reflects my personal performance of the history, physical exam, medical decision making, and the department course for this patient. I have also personally directed, reviewed, and agree with the discharge instructions and disposition.
--- NOTE | 2019-01-22 12:28 | CT ---
Date of service: 01/22/2019 PROCEDURE: CT Abdomen and Pelvis without intravenous contrast HISTORY: abd pain COMPARISON: 09/29/2018 TECHNIQUE: Without contrast.. Contrast dose: 0 Radiation dose: Total exam DLP = 548.04 mGy-cm. This CT exam was performed using one or more of the following dose reduction techniques: Automated exposure control, adjustment of the mA and/or kV according to patient size, and/or use of iterative reconstruction technique. FINDINGS: LOWER THORAX: Small bilateral pleural effusion. No consolidation. Calcified granuloma in the right lower lobe. Cardiomegaly. LIVER: Normal size. Smooth contour. No mass. No biliary ductal dilatation. GALLBLADDER AND BILE DUCTS: Status post cholecystectomy. PANCREAS: Unremarkable. No mass or ductal dilatation. SPLEEN: There is a solitary punctate splenic calcification consistent with an old calcified granuloma. No mass. ADRENALS: Unremarkable. KIDNEYS AND URETERS: Markedly atrophic kidneys. Mild dilatation of the right renal pelvis without calyceal dilatation. This may reflect a parapelvic cyst. There are multiple small left parapelvic renal cysts as well as several cortical cysts, the largest of which measures approximately 3.0 cm in diameter. This is unchanged from prior examination. No renal calculus. No kiko hydronephrosis. VASCULATURE: Unremarkable. No aortic aneurysm. There is atherosclerotic calcification of the abdominal aorta. BOWEL: No bowel obstruction. No abnormal bowel loops. APPENDIX: Not identified. PERITONEUM: Extensive ascites. LYMPH NODES: Unremarkable. No enlarged lymph nodes. BLADDER: Suboptimally distended. No gross abnormality. REPRODUCTIVE: Unremarkable prostate. BONES: No acute fracture. OTHER FINDINGS: None. IMPRESSION: Extensive ascites. Markedly atrophic kidneys with bilateral parapelvic and cortical cysts. Old calcified granulomas, right lower lobe lung and in spleen. Status post cholecystectomy.
[2019-01-22] MEDS ORDERED: Albuterol 0.083% Inhal Sol (2.5 mg/3 mL) UD INH STA (13:05)
--- NOTE | 2019-01-22 13:38 | CP.PCM.HP ---
History of Present Illness - History of Present Illness History of Present Illness: PGY-1 Luli Guy D.O. H&P for Dr. 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 Patient states that about 8 days ago, he noticed his abdomen start to distend, and he felt bloated. He says that when eating, he becomes full quickly and sometimes vomits. Additionally, he has SOB when lying flat. He has been feeling very fatigued recently as well, but he usually feels better after dialysis. Patient reports that he went to dialysis today and was still not feeling well afterwards, so he decided to come to the hospital. Elizabeth de la o was admitted in September 2018 with very similar complaints. He states that he did not follow-up outpatient after his admission in September with any doctors except Dr. Banks. He says that he is only taking 3 of his medications as he ran out of the others. Patient admits to drinking about 2 months ago and smoking cigars yesterday. He denies fevers/chills, chest pain, palpitations, leg swelling. He says that he is producing little urine, and it is hard for him to urinate. He admits to constipation; his last BM was this morning, but it was very hard. PMH: ESRD on HD MWF, CHF (EF 26% in 09/2018), cirrhosis, HTN, BPH, hypothyroidism, gout, anemia, OA PSH: cholecystectomy 2017 Meds: Phoslo 667 mg PO TID, Coreg 3.125 mg PO BID, Enalapril 2.5 mg PO daily All: NKA FH: denies any family history of health problems SH: moved from [facility] 8 years ago, lives with son, drank heavily for 20 years, last drink 2 months ago, smokes 1-2 cigars/day, denies illicit drugs PMD: Leonidas (patient never saw as outpatient) Present on Admission - Present on Admission Any Indicators Present on Admission: No History of DVT/PE: No History of Uncontrolled Diabetes: No Urinary Catheter: No Decubitus Ulcer Present: No History Surgical Site Infection Following: None Review of Systems - Constitutional Constitutional: absent: Chills, Fever, Headache - EENT Eyes: absent: Change in Vision Ears: absent: Decreased Hearing, Tinnitus Nose/Mouth/Throat: absent: Nasal Congestion, Sore Throat - Cardiovascular Cardiovascular: absent: Chest Pain, Leg Edema, Palpitations, Syncope - Respiratory Respiratory: Dyspnea. absent: Cough - Gastrointestinal Gastrointestinal: Abdominal Pain, Bloating, Constipation, Vomiting. absent: Diarrhea, Hematemesis, Hematochezia, Nausea - Genitourinary Genitourinary: Difficulty Urinating, Urinary Hesitance, Voiding Freq/Small Amts. absent: Dysuria, Hematuria - Musculoskeletal Musculoskeletal: absent: Back Pain, Myalgias - Integumentary Integumentary: absent: Lesions, Pruritus, Rash - Neurological Neurological: absent: Dizziness, Numbness, Focal Weakness, Sensory Deficit, Tingling - Psychiatric Psychiatric: absent: Anxiety, Depression - Endocrine Endocrine: absent: Polydipsia, Polyuria - Hematologic/Lymphatic Hematologic: absent: Easy Bleeding, Easy Bruising, Lymphadenopathy Past Patient History - Infectious Disease Hx of Infectious Diseases: None - Tetanus Immunizations Tetanus Immunization: Unknown - Past Medical History & Family History Past Medical History?: Yes Past Family History: Reviewed and not pertinent - Past Social History Smoking Status: Current Some Days Smoker Chewing Tobacco Use: No Cigar Use: Yes Alcohol: Occasional (former heavy drinker) Home Situation {Lives}: With Family (son Raman) - CARDIAC Hx Atrial Fibrillation: No Hx Cardia Arrhythmia: No Hx Congestive Heart Failure: No Hx Hypercholesterolemia: No Hx Hypertension: Yes Hx Mitral Valve Prolapse: No Hx Pacemaker: No Hx Peripheral Edema: Yes (left arm and hand edema) - PULMONARY Hx Respiratory Disorders: No - NEUROLOGICAL Hx Alzheimer's Disease: No Hx Dementia: No Hx Migraine: No Hx Multiple Sclerosis: No Hx Parkinson's Disease: No Hx Seizures: No Hx Transient Ischemic Attacks (TIA): No - HEENT Hx HEENT Problems: No - RENAL Hx Chronic Kidney Disease: Yes Hx Kidney Stones: No - ENDOCRINE/METABOLIC Hx Hyperthyroidism: No Hx Hypothyroidism: Yes - HEMATOLOGICAL/ONCOLOGICAL Hx Anemia: No Hx Human Immunodeficiency Virus (HIV): No Hx Sickle Cell Disease: No - INTEGUMENTARY Hx Dermatological Problems: No - MUSCULOSKELETAL/RHEUMATOLOGICAL Hx Arthritis: Yes Hx Fractures: No Hx Osteoporosis: No Hx Rheumatoid Arthritis: No - GASTROINTESTINAL Hx Crohn's Disease: No Hx Diverticulitis: No Hx Gall Bladder Disease: No Hx Gastritis: No - GENITOURINARY/GYNECOLOGICAL Hx Sexually Transmitted Disorders: No - PSYCHIATRIC Hx Anxiety: No Hx Bipolar Disorder: No Hx Depression: No Hx Paranoia: No Hx Post Traumatic Stress Disorder: No Hx Schizophrenia: No Hx Substance Use: Yes - SURGICAL HISTORY Hx Appendectomy: No Hx Carotid Endarterectomy: No Hx Cholecystectomy: Yes Hx Coronary Artery Bypass Graft: No Hx Coronary Stent: No Hx Tonsillectomy: No - ANESTHESIA Hx Anesthesia: Yes Hx Anesthesia Reactions: Yes Hx Malignant Hyperthermia: No Meds Allergies/Adverse Reactions: Allergies Allergy/AdvReac Type Severity Reaction Status Date / Time No Known Allergies Allergy Verified 01/22/19 10:14 Physical Exam - Constitutional Appears: Non-toxic, No Acute Distress - Head Exam Head Exam: ATRAUMATIC, NORMAL INSPECTION - Eye Exam Eye Exam: EOMI, Normal appearance, PERRL - ENT Exam ENT Exam: Mucous Membranes Moist - Neck Exam Neck exam: Positive for: Normal Inspection. Negative for: Lymphadenopathy, Tenderness - Respiratory Exam Respiratory Exam: Clear to Auscultation Bilateral, NORMAL BREATHING PATTERN. absent: Rales, Rhonchi, Wheezes, Respiratory Distress - Cardiovascular Exam Cardiovascular Exam: RRR, +S1, +S2, Systolic Murmur. absent: JVD - GI/Abdominal Exam GI & Abdominal Exam: Distended, Tenderness Additional comments: + fluid wave - Extremities Exam Extremities exam: Negative for: pedal edema Additional comments: LUE AVF with palpable thrill - Back Exam Back exam: NORMAL INSPECTION - Neurological Exam Neurological exam: Alert, CN II-XII Intact, Normal Gait, Oriented x3 - Psychiatric Exam Psychiatric exam: Normal Affect, Normal Mood - Skin Skin Exam: Dry, Normal Color, Warm Results - Vital Signs Recent Vital Signs: Last Vital Signs Temp 97.3 F L 01/22/19 10:17 Pulse 93 H 01/22/19 10:17 Resp 18 01/22/19 10:17 BP 144/94 H 01/22/19 10:17 Pulse Ox 99 01/22/19 13:31 - Labs Result Diagrams: 01/22/19 11:12 01/22/19 12:25 Labs: Laboratory Results - last 24 hr 01/22/19 01/22/19 01/22/19 10:56 11:12 12:25 WBC 4.9 RBC 4.00 L Hgb 12.6 Hct 37.9 MCV 94.7 H MCH 31.6 H MCHC 33.3 RDW 15.6 H Plt Count 171 MPV 8.4 Neut % (Auto) 70.5 Lymph % (Auto) 17.9 L [place] % (Auto) 5.2 Eos % (Auto) 5.2 H Baso % (Auto) 1.2 Neut # (Auto) 3.4 Lymph # (Auto) 0.9 L [place] # (Auto) 0.3 Eos # (Auto) 0.3 Baso # (Auto) 0.1 Sodium 134 Potassium 5.9 H 6.0 H Chloride 90 L Carbon Dioxide 29 Anion Gap 21 H BUN 37 H Creatinine 4.9 H Est GFR ( Amer) 14 Est GFR (Non-Af Amer) 12 Random Glucose 92 Calcium 9.5 Total Bilirubin 1.6 H AST 38 ALT 14 L D Alkaline Phosphatase 144 H Total Protein 8.8 H Albumin 4.6 Globulin 4.2 H Albumin/Globulin Ratio 1.1 Lipase 186 Assessment & Plan - Assessment and Plan (Free Text) Assessment: Patient is a 68 yo male with ESRD on HD MWF, CHF, cirrhosis, and HTN who presents with abdominal pain and distention. Patient with extensive ascites on CT. Plan: Ascites and Liver cirrhosis, recurrent- 2/2 to alcohol use - CT A/P: extensive cirrhosis - IR consulted (Philip)- eval for paracentesis Hyperkalemia, acute- 2/2 ESRD - K 6.0 on admission - Repeat pending - No pertinent EKG changes - Albuterol and Kayexalate given in ED Systolic congestive heart failure (HFrEF), chronic - EF 26% in 09/2018 - CXR: no venous congestion or pleural effusions - Echo pending - Cardiology consulted (Brodie) End stage renal disease on Hemodialysis MWF, chronic - Phoslo 667 mg PO ACHS - Nephrology consulted (Darren) Hypertension, chronic - Vitals Q6H - Coreg 3.125 mg PO BID Prolonged QTc - No prior EKG - 514 on admission - Avoid meds that can prolong QTc Hypothyroidism, chronic - Patient stopped taking Synthroid 125 mcg PO daily - TSH, free T4 pending Benign prostatic hypertrophy, chronic - Flomax 0.4 mg PO daily Tobacco use disorder, chronic - Nicoderm daily - Cessation counseling Ppx: VTE: SCDs, chemical anticoag contraindicated prior to procedure, patient ambulatory GI: not indicate Diet: Renal, Heart healthy Code status: full code Dispo: Pending paracentesis by IR. Pending cardio recs. Case discussed with attending, Dr. Lauren.
[2019-01-22] MEDS ORDERED: Albuterol 0.083% Inhal Sol (2.5 mg/3 mL) UD ONE (13:50)
--- NOTE | 2019-01-22 15:09 | CP.PCM.CON ---
History of Present Illness - History of Present Illness History of Present Illness: Patient is a 68 yo male with ESRD on HD MWF, CHF, cirrhosis, and HTN who presents with abdominal pain. Patient states that about 8 days ago, he noticed his abdomen start to distend, and he felt bloated. He says that when eating, he becomes full quickly and sometimes vomits. Additionally, he has SOB when lying flat. He has been feeling very fatigued recently as well, but he usually feels better after dialysis. Patient reports that he went to dialysis today and was still not feeling well afterwards, so he decided to come to the hospital. Patient was admitted in September 2018 with very similar complaints. He states that he did not follow-up outpatient after his admission in September with any doctors except Dr. Banks. He says that he is only taking 3 of his medications as he ran out of the others. Patient admits to drinking about 2 months ago and smoking cigars yesterday. He denies fevers/chills, chest pain, palpitations, leg swelling. He says that he is producing little urine, and it is hard for him to urinate. He admits to constipation; his last BM was this morning, but it was very hard. Had previous paracentesis. Likely with cirrhosis; patient has not followed up with GI Ascites has been gradually increasing. PMH: ESRD on HD MWF, CHF (EF 26% in 09/2018), cirrhosis, HTN, BPH, hypothyroidism, gout, anemia, OA PSH: cholecystectomy 2017 Meds: Phoslo 667 mg PO TID, Coreg 3.125 mg PO BID, Enalapril 2.5 mg PO daily All: NKA FH: denies any family history of health problems SH: moved from [facility] 8 years ago, lives with son, drank heavily for 20 years, last drink 2 months ago, smokes 1-2 cigars/day, denies illicit drugs PMD: Leonidas (patient never saw as outpatient) Review of Systems - Review of Systems All systems: reviewed and no additional remarkable complaints except - Gastrointestinal Gastrointestinal: Abdominal Pain, Constipation, Dyspepsia Past Patient History - Infectious Disease Hx of Infectious Diseases: None - Tetanus Immunizations Tetanus Immunization: Unknown - Past Medical History & Family History Past Medical History?: Yes Past Family History: Reviewed and not pertinent - Past Social History Smoking Status: Current Some Days Smoker Chewing Tobacco Use: No Cigar Use: Yes Alcohol: Occasional (former heavy drinker) Drugs: Denies Home Situation {Lives}: With Family (son Raman) - CARDIAC Hx Atrial Fibrillation: No Hx Cardia Arrhythmia: No Hx Congestive Heart Failure: No Hx Hypercholesterolemia: No Hx Hypertension: Yes Hx Mitral Valve Prolapse: No Hx Pacemaker: No Hx Peripheral Edema: Yes (left arm and hand edema) - PULMONARY Hx Respiratory Disorders: No - NEUROLOGICAL Hx Alzheimer's Disease: No Hx Dementia: No Hx Migraine: No Hx Multiple Sclerosis: No Hx Parkinson's Disease: No Hx Seizures: No Hx Transient Ischemic Attacks (TIA): No - HEENT Hx HEENT Problems: No - RENAL Hx Chronic Kidney Disease: Yes Hx Kidney Stones: No - ENDOCRINE/METABOLIC Hx Hyperthyroidism: No Hx Hypothyroidism: Yes - HEMATOLOGICAL/ONCOLOGICAL Hx Anemia: No Hx Human Immunodeficiency Virus (HIV): No Hx Sickle Cell Disease: No - INTEGUMENTARY Hx Dermatological Problems: No - MUSCULOSKELETAL/RHEUMATOLOGICAL Hx Arthritis: Yes Hx Fractures: No Hx Osteoporosis: No Hx Rheumatoid Arthritis: No - GASTROINTESTINAL Hx Crohn's Disease: No Hx Diverticulitis: No Hx Gall Bladder Disease: No Hx Gastritis: No - GENITOURINARY/GYNECOLOGICAL Hx Sexually Transmitted Disorders: No - PSYCHIATRIC Hx Anxiety: No Hx Bipolar Disorder: No Hx Depression: No Hx Paranoia: No Hx Post Traumatic Stress Disorder: No Hx Schizophrenia: No Hx Substance Use: Yes - SURGICAL HISTORY Hx Appendectomy: No Hx Carotid Endarterectomy: No Hx Cholecystectomy: Yes Hx Coronary Artery Bypass Graft: No Hx Coronary Stent: No Hx Tonsillectomy: No - ANESTHESIA Hx Anesthesia: Yes Hx Anesthesia Reactions: Yes Hx Malignant Hyperthermia: No Meds Allergies/Adverse Reactions: Allergies Allergy/AdvReac Type Severity Reaction Status Date / Time No Known Allergies Allergy Verified 01/22/19 10:14 - Medications Medications: Current Medications Calcium Acetate (Phoslo) 667 mg PO ACHS MANUEL Carvedilol (Coreg) 3.125 mg PO BID MANUEL Enalapril Maleate (Vasotec) 2.5 mg PO DAILY MANUEL Tamsulosin HCl (Flomax) 0.4 mg PO DAILY MANUEL Physical Exam - Constitutional Appears: Non-toxic, Chronically Ill - Head Exam Head Exam: ATRAUMATIC, NORMAL INSPECTION - Eye Exam Eye Exam: EOMI, Normal appearance - Neck Exam Neck exam: Positive for: Normal Inspection. Negative for: Tenderness - Respiratory Exam Respiratory Exam: Clear to Auscultation Bilateral, NORMAL BREATHING PATTERN - Cardiovascular Exam Cardiovascular Exam: REGULAR RHYTHM, +S1 - GI/Abdominal Exam GI & Abdominal Exam: Distended, Tenderness - Extremities Exam Extremities exam: Positive for: normal inspection. Negative for: tenderness - Neurological Exam Neurological exam: Alert, CN II-XII Intact - Skin Skin Exam: Dry, Warm Results - Vital Signs Recent Vital Signs: Last Vital Signs Temp 98.1 F 01/22/19 13:51 Pulse 81 01/22/19 13:51 Resp 18 01/22/19 13:51 BP 158/94 H 01/22/19 13:51 Pulse Ox 99 01/22/19 14:49 - Labs Result Diagrams: 01/22/19 11:12 01/22/19 12:25 Labs: Laboratory Results - last 24 hr 01/22/19 01/22/19 01/22/19 10:56 11:12 12:25 WBC 4.9 RBC 4.00 L Hgb 12.6 Hct 37.9 MCV 94.7 H MCH 31.6 H MCHC 33.3 RDW 15.6 H Plt Count 171 MPV 8.4 Neut % (Auto) 70.5 Lymph % (Auto) 17.9 L [place] % (Auto) 5.2 Eos % (Auto) 5.2 H Baso % (Auto) 1.2 Neut # (Auto) 3.4 Lymph # (Auto) 0.9 L [place] # (Auto) 0.3 Eos # (Auto) 0.3 Baso # (Auto) 0.1 Sodium 134 Potassium 5.9 H 6.0 H Chloride 90 L Carbon Dioxide 29 Anion Gap 21 H BUN 37 H Creatinine 4.9 H Est GFR ( Amer) 14 Est GFR (Non-Af Amer) 12 Random Glucose 92 Calcium 9.5 Total Bilirubin 1.6 H AST 38 ALT 14 L D Alkaline Phosphatase 144 H Total Protein 8.8 H Albumin 4.6 Globulin 4.2 H Albumin/Globulin Ratio 1.1 Lipase 186 Assessment & Plan (1) Hypertensive chronic kidney disease with stage 5 chronic kidney disease or end stage renal disease Status: Acute (2) Hyperkalemia Status: Acute (3) Cirrhosis Status: Acute (4) ESRD (end stage renal disease) on dialysis Status: Acute - Assessment and Plan (Free Text) Plan: dialysis now for hyperkalemia paracentesis GI evaluation
--- NOTE | 2019-01-22 15:55 | RAD ---
Date of service: 01/22/2019 HISTORY: SOB, h/o effusions COMPARISON: 06/29/2018 TECHNIQUE: Chest PA and lateral views FINDINGS: LUNGS: No active pulmonary disease. PLEURA: No significant pleural effusion identified. No pneumothorax apparent. CARDIOVASCULAR: No aortic atherosclerotic calcification present. Normal cardiac size. No pulmonary vascular congestion. OSSEOUS STRUCTURES: No significant abnormalities. VISUALIZED UPPER ABDOMEN: Normal. OTHER FINDINGS: None. IMPRESSION: No active disease.
--- NOTE | 2019-01-23 00:30 | CP.PCM.CON ---
History of Present Illness - History of Present Illness History of Present Illness: CC: Chest Pain 68 year old male with a PMHx of ESRD (on dialysis M-W-F) and ascites, presents to the ED complaining that for the past 8 months his abdomen is becoming increasingly distended. He is also c/o 5 day h/o abdominal pain and fatigue. He was seen here and admitted on 09/29/2018 for the same complaint. Patient otherwise denies any nausea, vomiting, fever, chills, chest pain, or SOB. Last dialysis session was this morning, and patient states the entire session was completed. Chief Complaint (Nursing): Abdominal Pain History Per: Patient History/Exam Limitations: no limitations Onset/Duration Of Symptoms: Days Current Symptoms Are (Timing): Still Present Past Medical History Reviewed: Historical Data, Nursing Documentation, Vital Signs Vital Signs: Last Vital Signs Temp 97.3 F L 01/22/19 10:17 Pulse 93 H 01/22/19 10:17 Resp 18 01/22/19 10:17 BP 144/94 H 01/22/19 10:17 Pulse Ox 99 01/22/19 10:17 Primary Care Provider: Donell Lauren Jr. - Medical History PMH: Arthritis, HTN, Hypothyroidism, Peripheral Edema (left arm and hand edema), End Stage Renal Disease, Chronic Kidney Disease Denies: Alzheimer's Disease, Anemia, Anxiety, Atrial Fibrillation, Bipolar Disorder, Cardia Arrhythmia, CHF, Crohn's Disease, Dementia, Depression, Diverticulitis, Fractures, Gastritis, Gall Bladder Disease, HIV, Hyperc holesterolemia, Hyperthyroidism, Kidney Stones, Migraine, Mitral Valve Prolapse, Multiple Sclerosis, Osteoporosis, Paranoia, Parkinson's Disease, Post Traumatic Stress Disorder, Rheumatoid Arthritis, Schizophrenia, Seizures, Sickle Cell Disease, Sexually Transmitted Disease, TIA Surgical History: Cholecystectomy Denies: Appendectomy, CABG, Carotid Endarterectomy, Coronary Stent, Pacemaker, Tonsillectomy - [facility] (09/30/18) ARTHROCENTESIS (06/24/14) DIALYSIS ARTERIOVENOSTOM (06/24/14) DRAINAGE OF PERITONEAL CAVITY, PERCUTANEOUS APPROACH (09/30/18) EXCISION OF STOMACH, ENDO, DIAGN (09/30/18) HEMODIALYSIS (06/24/14) RESECTION OF GALLBLADDER, PERCUTANEOUS ENDOSCOPIC APPROACH (01/26/18) VENOUS CATHETERIZATION FOR RENAL DIALYSIS (06/24/14) Family History: States: Unknown Family Hx - Social History Hx Tobacco Use: No Hx Alcohol Use: Yes Hx Substance Use: Yes - Immunization History Hx Tetanus Toxoid Vaccination: No Hx Influenza Vaccination: No Hx Pneumococcal Vaccination: No Review Of Systems Except As Marked, All Systems Reviewed And Found Negative. Constitutional: Negative for: Fever, Chills Cardiovascular: Negative for: Chest Pain Respiratory: Negative for: Shortness of Breath Gastrointestinal: Positive for: Other (Abdominal distension). Negative for: Nausea, Vomiting, Abdominal Pain Genitourinary: Negative for: Dysuria Musculoskeletal: Negative for: Back Pain Neurological: Negative for: Weakness, Dizziness Physical Exam - Physical Exam Appears: Well, Non-toxic, No Acute Distress Skin: Warm, Dry, No Rash Head: Atraumatic, Normacephalic Eye(s): bilateral: Normal Inspection, PERRL, EOMI Neck: Normal ROM Chest: Symmetrical Cardiovascular: Rhythm Regular, No Murmur Respiratory: No Accessory Muscle Use, Rales (faint rales at the bases), No Rhonchi, No Stridor Gastrointestinal/Abdominal: Bowel Sounds (slightly decreased), Soft, No Tend erness, Distention (abdomen very distended), No Rebound Back: No CVA Tenderness Extremity: No Pedal Edema Extremity: Left: Other (AV fistula to LUE), Bilateral: Atraumatic, Normal Color And Temperature Neurological/Psych: Oriented x3, Normal SpeechCC Past Patient History - Infectious Disease Hx of Infectious Diseases: None - Tetanus Immunizations Tetanus Immunization: Unknown - Past Medical History & Family History Past Medical History?: Yes Past Family History: Reviewed and not pertinent - Past Social History Smoking Status: Current Some Days Smoker Chewing Tobacco Use: No Cigar Use: Yes Alcohol: Occasional (former heavy drinker) Home Situation {Lives}: With Family (son Raman) - CARDIAC Hx Atrial Fibrillation: No Hx Cardia Arrhythmia: No Hx Congestive Heart Failure: No Hx Hypercholesterolemia: No Hx Hypertension: Yes Hx Mitral Valve Prolapse: No Hx Pacemaker: No Hx Peripheral Edema: Yes (left arm and hand edema) - PULMONARY Hx Respiratory Disorders: No - NEUROLOGICAL Hx Alzheimer's Disease: No Hx Dementia: No Hx Migraine: No Hx Multiple Sclerosis: No Hx Parkinson's Disease: No Hx Seizures: No Hx Transient Ischemic Attacks (TIA): No - HEENT Hx HEENT Problems: No - RENAL Hx Chronic Kidney Disease: Yes Hx Kidney Stones: No - ENDOCRINE/METABOLIC Hx Hyperthyroidism: No Hx Hypothyroidism: Yes - HEMATOLOGICAL/ONCOLOGICAL Hx Anemia: No Hx Human Immunodeficiency Virus (HIV): No Hx Sickle Cell Disease: No - INTEGUMENTARY Hx Dermatological Problems: No - MUSCULOSKELETAL/RHEUMATOLOGICAL Hx Arthritis: Yes Hx Fractures: No Hx Osteoporosis: No Hx Rheumatoid Arthritis: No - GASTROINTESTINAL Hx Crohn's Disease: No Hx Diverticulitis: No Hx Gall Bladder Disease: No Hx Gastritis: No - GENITOURINARY/GYNECOLOGICAL Hx Sexually Transmitted Disorders: No - PSYCHIATRIC Hx Anxiety: No Hx Bipolar Disorder: No Hx Depression: No Hx Paranoia: No Hx Post Traumatic Stress Disorder: No Hx Schizophrenia: No Hx Substance Use: Yes - SURGICAL HISTORY Hx Appendectomy: No Hx Carotid Endarterectomy: No Hx Cholecystectomy: Yes Hx Coronary Artery Bypass Graft: No Hx Coronary Stent: No Hx Tonsillectomy: No - ANESTHESIA Hx Anesthesia: Yes Hx Anesthesia Reactions: Yes Hx Malignant Hyperthermia: No Meds Allergies/Adverse Reactions: Allergies Allergy/AdvReac Type Severity Reaction Status Date / Time No Known Allergies Allergy Verified 01/22/19 10:14 - Medications Medications: Current Medications Calcium Acetate (Phoslo) 667 mg PO ACHS [facility] Last Admin: 01/22/19 21:19 Dose: Not Given Carvedilol (Coreg) 3.125 mg PO BID [facility] Last Admin: 01/22/19 17:04 Dose: Not Given Nicotine (Nicoderm Cq) 1 patch TD DAILY [facility] Tamsulosin HCl (Flomax) 0.4 mg PO DAILY [facility] Results - Vital Signs Recent Vital Signs: Last Vital Signs Temp 97.3 F L 01/22/19 19:46 Pulse 85 01/22/19 19:46 Resp 20 01/22/19 19:46 BP 156/82 H 01/22/19 19:46 Pulse Ox 96 01/22/19 19:46 - Labs Result Diagrams: 01/22/19 11:12 01/22/19 19:05 Labs: Laboratory Results - last 24 hr 01/22/19 01/22/19 01/22/19 10:56 11:12 12:25 WBC 4.9 RBC 4.00 L Hgb 12.6 Hct 37.9 MCV 94.7 H MCH 31.6 H MCHC 33.3 RDW 15.6 H Plt Count 171 MPV 8.4 Neut % (Auto) 70.5 Lymph % (Auto) 17.9 L [place] % (Auto) 5.2 Eos % (Auto) 5.2 H Baso % (Auto) 1.2 Neut # (Auto) 3.4 Lymph # (Auto) 0.9 L [place] # (Auto) 0.3 Eos # (Auto) 0.3 Baso # (Auto) 0.1 Sodium 134 Potassium 5.9 H 6.0 H Chloride 90 L Carbon Dioxide 29 Anion Gap 21 H BUN 37 H Creatinine 4.9 H Est GFR ( Amer) 14 Est GFR (Non-Af Amer) 12 Random Glucose 92 Calcium 9.5 Total Bilirubin 1.6 H AST 38 ALT 14 L D Alkaline Phosphatase 144 H Total Protein 8.8 H Albumin 4.6 Globulin 4.2 H Albumin/Globulin Ratio 1.1 Lipase 186 Free T4 TSH 3rd Generation 01/22/19 01/22/19 01/22/19 17:57 17:57 19:05 WBC RBC Hgb Hct MCV MCH MCHC RDW Plt Count MPV Neut % (Auto) Lymph % (Auto) [place] % (Auto) Eos % (Auto) Baso % (Auto) Neut # (Auto) Lymph # (Auto) [place] # (Auto) Eos # (Auto) Baso # (Auto) Sodium Potassium 3.7 Chloride Carbon Dioxide Anion Gap BUN Creatinine Est GFR ( Amer) Est GFR (Non-Af Amer) Random Glucose Calcium Total Bilirubin AST ALT Alkaline Phosphatase Total Protein Albumin Globulin Albumin/Globulin Ratio Lipase Free T4 1.31 TSH 3rd Generation 11.60 H Assessment & Plan - Assessment and Plan (Free Text) Assessment: Patient is a 68 yo male with ESRD on HD MWF, CHF, cirrhosis, and HTN who presents with abdominal pain and distention. Patient with extensive ascites on CT. Plan: Ascites and Liver cirrhosis, recurrent- 2/2 to alcohol use - CT A/P: extensive cirrhosis - IR consulted (Philip)- eval for paracentesis Hyperkalemia, acute- 2/2 ESRD - K 6.0 on admission - Repeat pending - No pertinent EKG changes - Albuterol and Kayexalate given in ED Systolic congestive heart failure (HFrEF), chronic - EF 26% in 09/2018 - CXR: no venous congestion or pleural effusions End stage renal disease on Hemodialysis MWF, chronic - Phoslo 667 mg PO ACHS - Nephrology consulted (Darren) Hypertension, chronic - Vitals Q6H - Coreg 3.125 mg PO BID Prolonged QTc - No prior EKG - 514 on admission - Avoid meds that can prolong QTc Hypothyroidism, chronic - Patient stopped taking Synthroid 125 mcg PO daily - TSH, free T4 pending Benign prostatic hypertrophy, chronic - Flomax 0.4 mg PO daily Tobacco use disorder, chronic - Nicoderm daily - Cessation counseling Ppx: VTE: SCDs, chemical anticoag contraindicated prior to procedure, patient ambulatory GI: not indicate Diet: Renal, Heart healthy Code status: full code Check ECHO [facility] Eval
[2019-01-23 06:13] LABS: EOS # 0.2 K/uL (0.0-0.7); EOS % 4.5 % (0.0-4.0); HEMOGLOBIN 12.4 g/dL (12.0-18.0); LYMPH # 0.9 K/uL (1.0-4.3); LYMPH % 18.7 % (20.0-40.0); MEAN CELL VOLUME 95.1 fL (80.0-94.0); MEAN CORPUSCULAR HEMOGLOBIN 30.9 pg (27.0-31.0); MEAN CORPUSCULAR HGB CONC 32.5 g/dL (33.0-37.0); MEAN PLATELET VOLUME 8.6 fL (7.2-11.7); MONO # 0.3 K/uL (0.0-0.8); MONO % 6.6 % (0.0-10.0); NEUT # 3.3 K/uL (1.8-7.0); NEUT % 69.2 % (50.0-75.0); RBC 4.02 Mil/uL (4.40-5.90); RED CELL DISTRIBUTION WIDTH 15.9 % (11.5-14.5); WHITE BLOOD COUNT 4.8 K/uL (4.8-10.8)
[2019-01-23 06:31] LABS: ALB/GLOB RATIO 1.1 (1.0-2.1); ALBUMIN 3.9 g/dL (3.5-5.0); CALCIUM 9.2 mg/dl (8.6-10.4)
--- NOTE | 2019-01-23 07:51 | CP.PCM.PN ---
Subjective - Date & Time of Evaluation Date of Evaluation: 01/23/19 Time of Evaluation: 09:00 - Subjective Subjective: Medicine progress note for Dr. Lauren. Patient seen and examined at bedside. Patient states enlarged abdomen. Denies SOB, chest pain, nausea, vomiting, fevers, chills, nasuea, vomitting. patient admits to still producing normal urine. Pt is post dialysis on 01/22, MWF schedule. Objective - Vital Signs/Intake and Output Vital Signs (last 24 hours): Temp Pulse Resp BP Pulse Ox 98.1 F 88 20 136/74 94 L 01/22/19 23:20 01/23/19 07:30 01/22/19 23:20 01/22/19 23:20 01/22/19 23:20 - Medications Medications: Current Medications Calcium Acetate (Phoslo) 667 mg PO ACHS [facility] Last Admin: 01/22/19 21:19 Dose: Not Given Carvedilol (Coreg) 3.125 mg PO BID [facility] Last Admin: 01/22/19 17:04 Dose: Not Given Nicotine (Nicoderm Cq) 1 patch TD DAILY [facility] Tamsulosin HCl (Flomax) 0.4 mg PO DAILY [facility] - Labs Labs: 01/23/19 06:02 01/23/19 06:02 - Constitutional Appears: Non-toxic, No Acute Distress - Head Exam Head Exam: NORMAL INSPECTION - Eye Exam Eye Exam: EOMI, Normal appearance - ENT Exam ENT Exam: Mucous Membranes Moist - Cardiovascular Exam Cardiovascular Exam: +S1, +S2 - GI/Abdominal Exam GI & Abdominal Exam: Distended, Soft, Hyperactive Bowel Sounds. absent: Firm, Guarding, Rigid - Extremities Exam Extremities Exam: Full ROM, Normal Inspection. absent: Calf Tenderness, Pedal Edema - Neurological Exam Neurological Exam: Alert, Awake, Oriented x3 - Psychiatric Exam Psychiatric exam: Normal Affect, Normal Mood - Skin Skin Exam: Dry, Intact, Normal Color, Warm Assessment and Plan - Assessment and Plan (Free Text) Assessment: Patient is a 68 yo male with ESRD on HD MWF, CHF, cirrhosis, and HTN who presents with abdominal pain and distention. Patient with extensive ascites on CT. Plan: Ascites and Liver cirrhosis, recurrent- 2/2 to alcohol use - CT A/P: extensive cirrhosis - IR consulted (Philip)- eval for paracentesis - will obtain obstructive series to r/o obstruction Systolic congestive heart failure (HFrEF), chronic - EF 26% in 09/2018 - CXR: no venous congestion or pleural effusions - Echo pending - Cardiology consulted (Brodie) - coreg changed to nadol 40 po daily per nephro End stage renal disease on Hemodialysis MWF, chronic - Phoslo 667 mg PO ACHS - Nephrology consulted (Darren); nandol 40 PO daily from coreg Hypertension, chronic - Vitals Q6H - Coreg 3.125 mg PO BID switched to nadolol 40 PO daily per nephro Prolonged QTc - No prior EKG - 514 on admission - Avoid meds that can prolong QTc Hypothyroidism, chronic - Patient stopped taking Synthroid 125 mcg PO daily - elevated TSH 11.60; Free T4 1.31; will monitor Benign prostatic hypertrophy, chronic - Flomax 0.4 mg PO daily Tobacco use disorder, chronic - Nicoderm daily - Cessation counseling Hyperkalemia, acute- 2/2 ESRD - resolved - K 6.0 on admission - Repeat pending - No pertinent EKG changes - Albuterol and Kayexalate given in ED Ppx: VTE: SCDs, chemical anticoag contraindicated prior to procedure, patient ambulatory GI: not indicate Diet: Renal, Heart healthy Code status: full code Dispo: Pending paracentesis by IR. Pending cardio recs. Case discussed with attending, Dr. Lauren.
--- NOTE | 2019-01-23 09:09 | CP.PCM.PN ---
Subjective - Date & Time of Evaluation Date of Evaluation: 01/23/19 Time of Evaluation: 09:06 - Subjective Subjective: pt seen and examined lying flat in bed, no SOB had HD yesterday for hyperkalemia no nausea or vomiting no abdominal pain ROS- as per HPI, other than that 10 point ROS negative Objective - Vital Signs/Intake and Output Vital Signs (last 24 hours): Temp Pulse Resp BP Pulse Ox 98.1 F 93 H 18 165/92 H 100 01/23/19 08:33 01/23/19 08:33 01/23/19 08:33 01/23/19 08:33 01/23/19 08:33 - Medications Medications: Current Medications Calcium Acetate (Phoslo) 667 mg PO ACHS [facility] Last Admin: 01/23/19 08:05 Dose: 667 mg Carvedilol (Coreg) 3.125 mg PO BID [facility] Last Admin: 01/22/19 17:04 Dose: Not Given Heparin Sodium (Porcine) (Heparin) 5,000 units SC Q12 [facility] Nicotine (Nicoderm Cq) 1 patch TD DAILY [facility] Tamsulosin HCl (Flomax) 0.4 mg PO DAILY [facility] - Labs Labs: 01/23/19 06:02 01/23/19 06:02 - Constitutional Appears: Well, Non-toxic - Head Exam Head Exam: ATRAUMATIC, NORMOCEPHALIC - Eye Exam Eye Exam: EOMI, PERRL - ENT Exam ENT Exam: Mucous Membranes Moist - Neck Exam Neck Exam: Full ROM. absent: Lymphadenopathy - Respiratory Exam Respiratory Exam: Clear to Ausculation Bilateral. absent: Rhonchi, Wheezes - Cardiovascular Exam Cardiovascular Exam: REGULAR RHYTHM, +S1, +S2 - GI/Abdominal Exam GI & Abdominal Exam: Distended, Soft. absent: Tenderness Additional comments: ascitis - Extremities Exam Extremities Exam: Full ROM. absent: Pedal Edema - Neurological Exam Neurological Exam: Alert, Awake, Oriented x3 - Psychiatric Exam Psychiatric exam: Normal Affect, Normal Mood - Skin Skin Exam: Dry, Warm Assessment and Plan (1) Ascites Status: Acute (2) Cirrhosis Status: Acute (3) ESRD (end stage renal disease) on dialysis Status: Acute (4) Hyperkalemia Status: Acute - Assessment and Plan (Free Text) Plan: potassium level improved post HD dietary potassium restriction await paracentesis next HD friday change coreg to propranolol
--- NOTE | 2019-01-24 07:20 | CP.PCM.PN ---
Subjective - Date & Time of Evaluation Date of Evaluation: 01/24/19 Time of Evaluation: 10:00 - Subjective Subjective: Medicine progress note for Dr. vaughan. Pt seen and examined at bedside. Overnight pt reprots feeling ok, having some nausea in AM. Denies chest pain, headaches, SOB, vomiting, fevers, chills, diarrhea. Pt reports no bowel movement for 4 days. Pt reports producing small amount of urine today. Objective - Vital Signs/Intake and Output Vital Signs (last 24 hours): Temp Pulse Resp BP Pulse Ox 97.5 F L 62 20 125/78 100 01/23/19 23:15 01/24/19 00:00 01/23/19 23:15 01/23/19 23:15 01/23/19 23:15 Intake and Output: 01/24/19 01/24/19 06:59 18:59 Intake Total 0 Output Total 0 Balance 0 - Medications Medications: Current Medications Calcium Acetate (Phoslo) 667 mg PO ACHS [facility] Last Admin: 01/23/19 21:01 Dose: Not Given Heparin Sodium (Porcine) (Heparin) 5,000 units SC Q12 [facility] Last Admin: 01/23/19 21:55 Dose: Not Given Nadolol (Corgard) 40 mg PO DAILY [facility] Last Admin: 01/23/19 09:49 Dose: 40 mg Nicotine (Nicoderm Cq) 1 patch TD DAILY [facility] Last Admin: 01/23/19 09:49 Dose: 1 patch Tamsulosin HCl (Flomax) 0.4 mg PO DAILY [facility] Last Admin: 01/23/19 09:48 Dose: 0.4 mg - Labs Labs: 01/23/19 06:02 01/23/19 06:02 - Constitutional Appears: Non-toxic, No Acute Distress, Chronically Ill - Head Exam Head Exam: NORMAL INSPECTION - Eye Exam Eye Exam: Normal appearance - ENT Exam ENT Exam: Mucous Membranes Moist - Respiratory Exam Respiratory Exam: Decreased Breath Sounds. absent: Rales, Rhonchi, Wheezes - Cardiovascular Exam Cardiovascular Exam: +S1, +S2, Murmur - GI/Abdominal Exam GI & Abdominal Exam: Distended, Soft. absent: Firm, Guarding, Rigid, Rebound Additional comments: upper quadrant tympanic sounds, dull on lower quadrant, denies tenderness on palpation - Extremities Exam Extremities Exam: Full ROM, Normal Inspection. absent: Calf Tenderness, Pedal Edema - Back Exam Back Exam: absent: CVA tenderness (L), CVA tenderness (R) - Neurological Exam Neurological Exam: Alert, Awake, Oriented x3 - Psychiatric Exam Psychiatric exam: Normal Affect, Normal Mood - Skin Skin Exam: Dry, Intact, Normal Color, Warm Assessment and Plan - Assessment and Plan (Free Text) Assessment: Patient is a 68 yo male with ESRD on HD MWF, CHF, cirrhosis, and HTN who presents with abdominal pain and distention. Patient with extensive ascites on CT. Ascites and Liver cirrhosis, recurrent- 2/2 to alcohol use - CT A/P: extensive cirrhosis - obstructive series xray - no SBO - IR consulted (Philip)- eval for paracentesis - NPO past midnight Systolic congestive heart failure (HFrEF), chronic QTc prolongation - EF 26% in 09/2018 - CXR: no venous congestion or pleural effusions - Echo pending - Cardiology consulted (Brodie) - coreg changed to nadol 40 po daily per nephro - avoid meds that can increase qtc Nausea - no episodes of vomiting - marinol x 1 - avoid zofran for qtc prolongation End stage renal disease on Hemodialysis MWF, chronic - Phoslo 667 mg PO ACHS - Nephrology consulted (Darren); nandol 40 PO daily from coreg Hypertension, chronic - Vitals Q6H - Coreg 3.125 mg PO BID switched to nadolol 40 PO daily per nephro Prolonged QTc - No prior EKG - 514 on admission - Avoid meds that can prolong QTc Hypothyroidism, chronic - Patient stopped taking Synthroid 125 mcg PO daily - elevated TSH 11.60; Free T4 1.31; will monitor Benign prostatic hypertrophy, chronic - Flomax 0.4 mg PO daily Tobacco use disorder, chronic - Nicoderm daily - Cessation counseling Hyperkalemia, acute- 2/2 ESRD - resolved - K 6.0 on admission - Repeat pending - No pertinent EKG changes - Albuterol and Kayexalate given in ED Ppx: VTE: SCDs, chemical anticoag contraindicated prior to procedure, patient ambulatory GI: not indicate Diet: Renal, Heart healthy Code status: full code Dispo: Pending paracentesis by IR. Pending cardio recs. Will discus with Dr. Vaughan.
[2019-01-24 08:17] LABS: BASO # 0.1 K/uL (0.0-0.2); BASO % 1.3 % (0.0-2.0); EOS # 0.1 K/uL (0.0-0.7); EOS % 2.2 % (0.0-4.0); HEMOGLOBIN 12.3 g/dL (12.0-18.0); LYMPH # 0.8 K/uL (1.0-4.3); LYMPH % 18.4 % (20.0-40.0); MEAN CELL VOLUME 95.1 fL (80.0-94.0); MEAN CORPUSCULAR HEMOGLOBIN 31.6 pg (27.0-31.0); MEAN CORPUSCULAR HGB CONC 33.3 g/dL (33.0-37.0); MEAN PLATELET VOLUME 9.3 fL (7.2-11.7); MONO # 0.3 K/uL (0.0-0.8); MONO % 6.2 % (0.0-10.0); NEUT # 2.9 K/uL (1.8-7.0); NEUT % 71.9 % (50.0-75.0); NRBC % 0.1 % (0.0-2.0); RBC 3.88 Mil/uL (4.40-5.90); RED CELL DISTRIBUTION WIDTH 15.7 % (11.5-14.5); WHITE BLOOD COUNT 4.1 K/uL (4.8-10.8)
[2019-01-24 08:29] LABS: ALB/GLOB RATIO 1.2 (1.0-2.1); ALBUMIN 3.9 g/dL (3.5-5.0); CALCIUM 8.4 mg/dl (8.6-10.4)
--- NOTE | 2019-01-24 10:31 | RAD ---
Date of service: 01/23/2019 PROCEDURE: Radiographs of the chest and abdomen (obstructive series) HISTORY: concern for sbo COMPARISON: Comparison is made with the previous chest x-ray dated 01/22/2019 TECHNIQUE: AP radiograph of the chest, with upright and supine radiographs of the abdomen. 3 views obtained. FINDINGS: CHEST: Lungs: Clear. Cardiovascular: Normal size heart. No pulmonary vascular congestion. No aortic atherosclerotic calcification present Pleura: No pleural fluid. No pneumothorax. Other findings: None. ABDOMEN AND PELVIS: Bowel: Mildly dilated small bowel loops noted in the mid abdomen. The stomach is mildly distended. Free air: None. Bones: Unremarkable. Other findings: None. IMPRESSION: No evidence of acute pulmonary disease. Mildly distended stomach and small bowel loops in the mid abdomen noted.
--- NOTE | 2019-01-24 21:10 | CP.PCM.PN ---
Subjective - Date & Time of Evaluation Date of Evaluation: 01/23/19 Time of Evaluation: 14:10 - Subjective Subjective: Patient seen and evaluated Denies chest pain and dyspnea Review Of Systems Except As Marked, All Systems Reviewed And Found Negative. Constitutional: Negative for: Fever, Chills Cardiovascular: Negative for: Chest Pain Respiratory: Negative for: Shortness of Breath Gastrointestinal: Positive for: Other (Abdominal distension). Negative for: Nausea, Vomiting, Abdominal Pain Genitourinary: Negative for: Dysuria Musculoskeletal: Negative for: Back Pain Neurological: Negative for: Weakness, Dizziness Physical Exam - Physical Exam Appears: Well, Non-toxic, No Acute Distress Skin: Warm, Dry, No Rash Head: Atraumatic, Normacephalic Eye(s): bilateral: Normal Inspection, PERRL, EOMI Neck: Normal ROM Chest: Symmetrical Cardiovascular: Rhythm Regular, No Murmur Respiratory: No Accessory Muscle Use, Rales (faint rales at the bases), No Rhonchi, No Stridor Gastrointestinal/Abdominal: Bowel Sounds (slightly decreased), Soft, No Tenderness, Distention (abdomen very distended), No Rebound Back: No CVA Tenderness Extremity: No Pedal Edema Extremity: Left: Other (AV fistula to LUE), Bilateral: Atraumatic, Normal Color And Temperature Neurological/Psych: Oriented x3, Normal SpeechCC Objective - Vital Signs/Intake and Output Vital Signs (last 24 hours): Temp Pulse Resp BP Pulse Ox 97.6 F 61 20 102/73 100 01/24/19 16:40 01/24/19 16:40 01/24/19 16:40 01/24/19 16:40 01/24/19 16:40 Intake and Output: 01/24/19 01/25/19 18:59 06:59 Intake Total 280 Balance 280 - Medications Medications: Current Medications Aspirin (Ecotrin) 81 mg PO DAILY [facility] Calcium Acetate (Phoslo) 667 mg PO ACHS [facility] Last Admin: 01/24/19 16:58 Dose: Not Given Heparin Sodium (Porcine) (Heparin) 5,000 units SC Q12 [facility] Last Admin: 01/24/19 09:16 Dose: 5,000 units Nadolol (Corgard) 40 mg PO DAILY [facility] Last Admin: 01/24/19 09:16 Dose: 40 mg Nicotine (Nicoderm Cq) 1 patch TD DAILY [facility] Last Admin: 01/24/19 09:16 Dose: 1 patch Tamsulosin HCl (Flomax) 0.4 mg PO DAILY [facility] Last Admin: 01/24/19 09:16 Dose: 0.4 mg - Labs Labs: 01/24/19 08:09 01/24/19 08:09 Assessment and Plan - Assessment and Plan (Free Text) Assessment: Patient is a 68 yo male with ESRD on HD MWF, CHF, cirrhosis, and HTN who presents with abdominal pain and distention. Patient with extensive ascites on CT. Ascites and Liver cirrhosis, recurrent- 2/2 to alcohol use - CT A/P: extensive cirrhosis - obstructive series xray - no SBO - IR consulted (Philip)- eval for paracentesis - NPO past midnight Systolic congestive heart failure (HFrEF), chronic QTc prolongation - EF 26% in 09/2018 - CXR: no venous congestion or pleural effusions - Echo pending - Cardiology consulted (Brodie) - coreg changed to nadol 40 po daily per nephro - avoid meds that can increase qtc Nausea - no episodes of vomiting - marinol x 1 - avoid zofran for qtc prolongation End stage renal disease on Hemodialysis MWF, chronic - Phoslo 667 mg PO ACHS - Nephrology consulted (Darren); nandol 40 PO daily from coreg Hypertension, chronic - Vitals Q6H - Coreg 3.125 mg PO BID switched to nadolol 40 PO daily per nephro Prolonged QTc - No prior EKG - 514 on admission - Avoid meds that can prolong QTc Hypothyroidism, chronic - Patient stopped taking Synthroid 125 mcg PO daily - elevated TSH 11.60; Free T4 1.31; will monitor Benign prostatic hypertrophy, chronic - Flomax 0.4 mg PO daily Tobacco use disorder, chronic - Nicoderm daily - Cessation counseling Hyperkalemia, acute- 2/2 ESRD - resolved - K 6.0 on admission - Repeat pending - No pertinent EKG changes - Albuterol and Kayexalate given in ED Ppx: VTE: SCDs, chemical anticoag contraindicated prior to procedure, patient ambulatory GI: not indicate Diet: Renal, Heart healthy
--- NOTE | 2019-01-24 21:11 | CP.PCM.PN ---
Subjective - Date & Time of Evaluation Date of Evaluation: 01/24/19 Time of Evaluation: 14:20 - Subjective Subjective: Patient seen and evaluated Denies chest pain and dyspnea Review Of Systems Except As Marked, All Systems Reviewed And Found Negative. Constitutional: Negative for: Fever, Chills Cardiovascular: Negative for: Chest Pain Respiratory: Negative for: Shortness of Breath Gastrointestinal: Positive for: Other (Abdominal distension). Negative for: Nausea, Vomiting, Abdominal Pain Genitourinary: Negative for: Dysuria Musculoskeletal: Negative for: Back Pain Neurological: Negative for: Weakness, Dizziness Physical Exam - Physical Exam Appears: Well, Non-toxic, No Acute Distress Skin: Warm, Dry, No Rash Head: Atraumatic, Normacephalic Eye(s): bilateral: Normal Inspection, PERRL, EOMI Neck: Normal ROM Chest: Symmetrical Cardiovascular: Rhythm Regular, No Murmur Respiratory: No Accessory Muscle Use, Rales (faint rales at the bases), No Rhonchi, No Stridor Gastrointestinal/Abdominal: Bowel Sounds (slightly decreased), Soft, No Tenderness, Distention (abdomen very distended), No Rebound Back: No CVA Tenderness Extremity: No Pedal Edema Extremity: Left: Other (AV fistula to LUE), Bilateral: Atraumatic, Normal Color And Temperature Neurological/Psych: Oriented x3, Normal SpeechCC Objective - Vital Signs/Intake and Output Vital Signs (last 24 hours): Temp Pulse Resp BP Pulse Ox 97.6 F 61 20 102/73 100 01/24/19 16:40 01/24/19 16:40 01/24/19 16:40 01/24/19 16:40 01/24/19 16:40 Intake and Output: 01/24/19 01/25/19 18:59 06:59 Intake Total 280 Balance 280 - Medications Medications: Current Medications Aspirin (Ecotrin) 81 mg PO DAILY [facility] Calcium Acetate (Phoslo) 667 mg PO ACHS [facility] Last Admin: 01/24/19 16:58 Dose: Not Given Heparin Sodium (Porcine) (Heparin) 5,000 units SC Q12 [facility] Last Admin: 01/24/19 09:16 Dose: 5,000 units Nadolol (Corgard) 40 mg PO DAILY [facility] Last Admin: 01/24/19 09:16 Dose: 40 mg Nicotine (Nicoderm Cq) 1 patch TD DAILY [facility] Last Admin: 01/24/19 09:16 Dose: 1 patch Tamsulosin HCl (Flomax) 0.4 mg PO DAILY [facility] Last Admin: 01/24/19 09:16 Dose: 0.4 mg - Labs Labs: 01/24/19 08:09 01/24/19 08:09 Assessment and Plan - Assessment and Plan (Free Text) Assessment: Patient is a 68 yo male with ESRD on HD MWF, CHF, cirrhosis, and HTN who presents with abdominal pain and distention. Patient with extensive ascites on CT. Ascites and Liver cirrhosis, recurrent- 2/2 to alcohol use - CT A/P: extensive cirrhosis - obstructive series xray - no SBO - IR consulted (Philip)- eval for paracentesis - NPO past midnight Systolic congestive heart failure (HFrEF), chronic QTc prolongation - EF 26% in 09/2018 - CXR: no venous congestion or pleural effusions - Echo pending - Cardiology consulted (Brodie) - coreg changed to nadol 40 po daily per nephro - avoid meds that can increase qtc Nausea - no episodes of vomiting - marinol x 1 - avoid zofran for qtc prolongation End stage renal disease on Hemodialysis MWF, chronic - Phoslo 667 mg PO ACHS - Nephrology consulted (Darren); nandol 40 PO daily from coreg Hypertension, chronic - Vitals Q6H - Coreg 3.125 mg PO BID switched to nadolol 40 PO daily per nephro Prolonged QTc - No prior EKG - 514 on admission - Avoid meds that can prolong QTc Hypothyroidism, chronic - Patient stopped taking Synthroid 125 mcg PO daily - elevated TSH 11.60; Free T4 1.31; will monitor Benign prostatic hypertrophy, chronic - Flomax 0.4 mg PO daily Tobacco use disorder, chronic - Nicoderm daily - Cessation counseling Hyperkalemia, acute- 2/2 ESRD - resolved - K 6.0 on admission - Repeat pending - No pertinent EKG changes - Albuterol and Kayexalate given in ED Ppx: VTE: SCDs, chemical anticoag contraindicated prior to procedure, patient ambulatory GI: not indicate Diet: Renal, Heart healthy
[2019-01-25 07:44] LABS: BASO % 0.9 % (0.0-2.0); EOS # 0.1 K/uL (0.0-0.7); EOS % 1.7 % (0.0-4.0); HEMOGLOBIN 13.1 g/dL (12.0-18.0); LYMPH # 0.8 K/uL (1.0-4.3); LYMPH % 18.4 % (20.0-40.0); MEAN CELL VOLUME 95.4 fL (80.0-94.0); MEAN CORPUSCULAR HGB CONC 33.6 g/dL (33.0-37.0); MEAN PLATELET VOLUME 9.7 fL (7.2-11.7); MONO # 0.2 K/uL (0.0-0.8); MONO % 5.8 % (0.0-10.0); NEUT % 73.2 % (50.0-75.0); NRBC % 0.4 % (0.0-2.0); RBC 4.08 Mil/uL (4.40-5.90); RED CELL DISTRIBUTION WIDTH 15.5 % (11.5-14.5); WHITE BLOOD COUNT 4.1 K/uL (4.8-10.8)
--- NOTE | 2019-01-25 07:47 | CP.PCM.PN ---
Subjective - Date & Time of Evaluation Date of Evaluation: 01/25/19 Time of Evaluation: 07:44 - Subjective Subjective: Progress note for Dr. Lauren. Patient seen and examined at bedside. States he had some nausea yesterday and was not able to eat lunch or dinner, however nausea has resolved. Denies vomiting. Reports 2 small BMs this morning. Going for paracentesis today. Denies fever, chills, chest pain, headache. Objective - Vital Signs/Intake and Output Vital Signs (last 24 hours): Temp Pulse Resp BP Pulse Ox 97.4 F L 59 L 20 103/68 97 01/25/19 07:05 01/25/19 07:05 01/25/19 07:05 01/25/19 07:05 01/25/19 07:05 Intake and Output: 01/25/19 01/25/19 06:59 18:59 Intake Total 600 Output Total 100 Balance 500 - Medications Medications: Current Medications Aspirin (Ecotrin) 81 mg PO DAILY [facility] Calcium Acetate (Phoslo) 667 mg PO ACHS [facility] Last Admin: 01/24/19 21:14 Dose: Not Given Heparin Sodium (Porcine) (Heparin) 5,000 units SC Q12 [facility] Last Admin: 01/24/19 21:15 Dose: Not Given Nadolol (Corgard) 40 mg PO DAILY [facility] Last Admin: 01/24/19 09:16 Dose: 40 mg Nicotine (Nicoderm Cq) 1 patch TD DAILY [facility] Last Admin: 01/24/19 09:16 Dose: 1 patch Tamsulosin HCl (Flomax) 0.4 mg PO DAILY [facility] Last Admin: 01/24/19 09:16 Dose: 0.4 mg - Labs Labs: 01/24/19 08:09 01/24/19 08:09 - Constitutional Appears: Non-toxic, No Acute Distress - Head Exam Head Exam: ATRAUMATIC, NORMOCEPHALIC - Eye Exam Eye Exam: EOMI, Normal appearance - ENT Exam ENT Exam: Mucous Membranes Dry - Neck Exam Neck Exam: Full ROM, Normal Inspection - Respiratory Exam Respiratory Exam: Decreased Breath Sounds. absent: Rales, Rhonchi, Wheezes, Respiratory Distress - Cardiovascular Exam Cardiovascular Exam: REGULAR RHYTHM, +S1, +S2, Murmur (Systolic, 2nd intercostal space on the L) - GI/Abdominal Exam GI & Abdominal Exam: Distended, Soft, Normal Bowel Sounds. absent: Tenderness, Rebound Additional comments: + fluid wave - Extremities Exam Extremities Exam: Full ROM, Normal Capillary Refill, Normal Inspection. absent: Calf Tenderness, Joint Swelling, Pedal Edema, Tenderness - Neurological Exam Neurological Exam: Alert, Awake, CN II-XII Intact (grossly), Oriented x3 Neuro motor strength exam: Left Upper Extremity: 5, Right Upper Extremity: 5, Left Lower Extremity: 5, Right Lower Extremity: 5 - Psychiatric Exam Psychiatric exam: Normal Affect, Normal Mood - Skin Skin Exam: Normal Color, Warm Assessment and Plan - Assessment and Plan (Free Text) Plan: Patient is a 68 yo male with ESRD on HD MWF, CHF, cirrhosis, and HTN who presents with abdominal pain and distention. Patient with extensive ascites on CT. Ascites and Liver cirrhosis, recurrent- 2/2 to alcohol use - CT A/P: extensive cirrhosis - obstructive series xray - no SBO - IR consulted (Philip)- paracentesis performed 01/25/19, 4L removed - F/u Fluid studies Systolic congestive heart failure (HFrEF), chronic QTc prolongation - EF 26% in 09/2018 - CXR: no acute disease - Echo 09/2018- EF 26%, likely pulmonary HTN, dilated RV with decreased systolic function. see full report - Cardiology consulted (Brodie) -Echo ordered -Lexiscan ordered - coreg changed to nadol 40 po daily per nephro - avoid meds that can increase qtc Nausea-Improved - marinol x 1 - avoid zofran for qtc prolongation End stage renal disease on Hemodialysis MWF, chronic - Phoslo 667 mg PO ACHS - Nephrology consulted (Darren); nandol 40 PO daily from coreg Hypertension, chronic - Vitals Q6H - Coreg 3.125 mg PO BID switched to nadolol 40 PO daily per nephro Prolonged QTc - No prior EKG - 514 on admission, repeat 569 - Avoid meds that can prolong QTc Hypothyroidism, chronic - Patient stopped taking Synthroid 125 mcg PO daily - elevated TSH 11.60; Free T4 1.31; will monitor Benign prostatic hypertrophy, chronic - Flomax 0.4 mg PO daily Tobacco use disorder, chronic - Nicoderm daily - Cessation counseling Hyperkalemia, acute- 2/2 ESRD - resolved - K 6.0 on admission - Repeat pending - No pertinent EKG changes - Albuterol and Kayexalate given in ED Ppx: VTE: SCDs, chemical anticoag contraindicated prior to procedure, patient ambulatory GI: not indicated Diet: Renal, Heart healthy- NPO after MD for Martha in AM Code status: full code Dispo: Pending paracentesis fluid studies. f/u echo and emmanueliscan Discussed with Dr. Lauren. Anne Moran, PGY-1
[2019-01-25 07:56] LABS: INR 1.3
[2019-01-25 08:24] LABS: ALB/GLOB RATIO 1.2 (1.0-2.1); ALBUMIN 4.1 g/dL (3.5-5.0); CALCIUM 9.4 mg/dl (8.6-10.4)
[2019-01-25] MEDS ORDERED: Lidocaine 2% MPF (5 ml) Inj ONE (09:35)
--- NOTE | 2019-01-25 10:41 | PCM.SURG1 ---
Surgeon's Initial Post Op Note - Surgeon's Notes Surgeon: Jack Palacios MD Manifest Clerk: NONE Type of Anesthesia: Local Pre-Operative Diagnosis: Ascites Operative Findings: US showed large amount of ascites Post-Operative Diagnosis: Ascites Operation Performed: US guided paracentesis Specimen/Specimens Removed: 4 liters Estimated Blood Loss: EBL {In ML}: 0 Blood Products Given: N/A Drains Used: No Drains Post-Op Condition: Fair Date of Surgery/Procedure: 01/25/19 Time of Surgery/Procedure: 10:00
[2019-01-25 10:42] LABS: BODY FLUID TYPE PERITONEAL/ASCITES
[2019-01-25 11:32] LABS: BF GROSS APPEARANCE CLOUDY (CLEAR)
[2019-01-25 11:33] LABS: BODY FLUID MONO/MACROPHAGE 4 % (0-0); BODY FLUID TOTAL COUNT 100 (0-0)
--- NOTE | 2019-01-25 11:51 | CP.PCM.PN ---
Subjective - Date & Time of Evaluation Date of Evaluation: 01/25/19 Time of Evaluation: 11:48 - Subjective Subjective: in bd, comfortable s/p paracentesis- 4 L drained no SOB no abdominal pain no fevers ate food without any issues ROS- 10 point ROS negative Objective - Vital Signs/Intake and Output Vital Signs (last 24 hours): Temp Pulse Resp BP Pulse Ox 97.4 F L 59 L 20 103/68 97 01/25/19 07:05 01/25/19 07:05 01/25/19 07:05 01/25/19 07:05 01/25/19 07:05 Intake and Output: 01/25/19 01/25/19 06:59 18:59 Intake Total 600 Output Total 100 Balance 500 - Medications Medications: Current Medications Aspirin (Ecotrin) 81 mg PO DAILY [facility] Calcium Acetate (Phoslo) 667 mg PO ACHS [facility] Last Admin: 01/25/19 07:56 Dose: 667 mg Heparin Sodium (Porcine) (Heparin) 5,000 units SC Q12 [facility] Last Admin: 01/24/19 21:15 Dose: Not Given Nadolol (Corgard) 40 mg PO DAILY [facility] Last Admin: 01/25/19 10:38 Dose: 40 mg Nicotine (Nicoderm Cq) 1 patch TD DAILY [facility] Last Admin: 01/25/19 10:38 Dose: 1 patch Tamsulosin HCl (Flomax) 0.4 mg PO DAILY [facility] Last Admin: 01/25/19 10:38 Dose: 0.4 mg - Labs Labs: 01/25/19 07:32 01/25/19 07:32 PT 14.0 SECONDS (9.7-12.2) H 01/25/19 07:32 INR 1.3 01/25/19 07:32 APTT 30.0 SECONDS (21-34) 01/25/19 07:32 - Constitutional Appears: Well, Non-toxic - Head Exam Head Exam: ATRAUMATIC, NORMOCEPHALIC - Eye Exam Eye Exam: EOMI, PERRL - ENT Exam ENT Exam: Mucous Membranes Moist - Neck Exam Neck Exam: Full ROM - Respiratory Exam Respiratory Exam: Clear to Ausculation Bilateral. absent: Rhonchi, Wheezes - Cardiovascular Exam Cardiovascular Exam: REGULAR RHYTHM, +S1, +S2 - GI/Abdominal Exam GI & Abdominal Exam: Distended, Soft. absent: Tenderness - Extremities Exam Extremities Exam: Full ROM. absent: Pedal Edema - Neurological Exam Neurological Exam: Alert, Awake, Oriented x3 - Psychiatric Exam Psychiatric exam: Normal Affect, Normal Mood - Skin Skin Exam: Normal Color, Warm Assessment and Plan (1) Ascites Status: Acute (2) Cirrhosis Status: Acute (3) ESRD (end stage renal disease) on dialysis Status: Acute (4) Hyperkalemia Status: Acute - Assessment and Plan (Free Text) Plan: HD today monitor potassium level low potassium diet s/p paracentesis BP stable stable renal andrew
--- NOTE | 2019-01-25 12:18 | US ---
Date of Procedure: 01/25/2019 PROCEDURE: Ultrasound-guided paracentesis, CPT 72784 Medications: 7 cc 1% Lidocaine HISTORY: Ascites, abdominal pain TECHNIQUE: Following informed consent , the patient was placed supine on the stretcher and the site was marked. A limited abdominal ultrasound was performed that showed a large amount of intra-abdominal fluid. Procedural time out was called and the Pt's abdomen was marked and prepped and draped in the usual sterile fashion. Ultrasound-guided large volume paracentesis performed. A total of 4 liters of straw colored fluid was removed without complication. IMPRESSION: Ultrasound-guided large volume paracentesis.
--- NOTE | 2019-01-25 12:46 | CARD ---
APPROVED REPORT Date of service: 01/22/2019 EKG Measurement Heart [id number] <Conclusion> Normal sinus rhythm Left anterior fascicular block Prolonged QT Abnormal ECG
--- NOTE | 2019-01-25 21:49 | CARD ---
APPROVED REPORT Date of service: 01/24/2019 EKG Measurement Heart [id number] <Conclusion> Sinus bradycardia Left axis deviation T wave abnormality, consider anterolateral ischemia Prolonged QT Abnormal ECG
[2019-01-26 06:49] LABS: BASO # 0.1 K/uL (0.0-0.2); BASO % 1.3 % (0.0-2.0); EOS # 0.1 K/uL (0.0-0.7); EOS % 1.6 % (0.0-4.0); HEMOGLOBIN 12.4 g/dL (12.0-18.0); LYMPH # 0.7 K/uL (1.0-4.3); LYMPH % 14.7 % (20.0-40.0); MEAN CORPUSCULAR HEMOGLOBIN 31.3 pg (27.0-31.0); MEAN CORPUSCULAR HGB CONC 32.9 g/dL (33.0-37.0); MEAN PLATELET VOLUME 9.6 fL (7.2-11.7); MONO # 0.4 K/uL (0.0-0.8); MONO % 9.4 % (0.0-10.0); NEUT # 3.4 K/uL (1.8-7.0); NRBC % 0.3 % (0.0-2.0); RBC 3.95 Mil/uL (4.40-5.90); RED CELL DISTRIBUTION WIDTH 15.9 % (11.5-14.5); WHITE BLOOD COUNT 4.7 K/uL (4.8-10.8)
[2019-01-26 07:05] LABS: ALB/GLOB RATIO 1.1 (1.0-2.1); ALBUMIN 3.4 g/dL (3.5-5.0); CALCIUM 8.8 mg/dl (8.6-10.4)
--- NOTE | 2019-01-26 07:26 | CP.PCM.PN ---
Subjective - Date & Time of Evaluation Date of Evaluation: 01/26/19 Time of Evaluation: 07:24 - Subjective Subjective: Remains in bd, comfortable s/p paracentesis- 4 L drained no SOB no abdominal pain no fevers Alissa scan scheduled ROS- 10 point ROS negative Objective - Vital Signs/Intake and Output Vital Signs (last 24 hours): Temp Pulse Resp BP Pulse Ox 98.2 F 51 L 20 93/55 L 99 01/25/19 23:30 01/26/19 07:00 01/25/19 23:30 01/25/19 23:30 01/25/19 23:30 Intake and Output: 01/26/19 01/26/19 06:59 18:59 Intake Total 240 Balance 240 - Medications Medications: Current Medications Aspirin (Ecotrin) 81 mg PO DAILY [facility] Calcium Acetate (Phoslo) 667 mg PO ACHS [facility] Last Admin: 01/25/19 21:26 Dose: 667 mg Heparin Sodium (Porcine) (Heparin) 5,000 units SC Q12 [facility] Last Admin: 01/24/19 21:15 Dose: Not Given Nadolol (Corgard) 40 mg PO DAILY [facility] Last Admin: 01/25/19 10:38 Dose: 40 mg Nicotine (Nicoderm Cq) 1 patch TD DAILY [facility] Last Admin: 01/25/19 10:38 Dose: 1 patch Tamsulosin HCl (Flomax) 0.4 mg PO DAILY [facility] Last Admin: 01/25/19 10:38 Dose: 0.4 mg - Labs Labs: 01/26/19 06:36 01/26/19 06:36 PT 14.0 SECONDS (9.7-12.2) H 01/25/19 07:32 INR 1.3 01/25/19 07:32 APTT 30.0 SECONDS (21-34) 01/25/19 07:32 - Constitutional Appears: Well, Non-toxic - Head Exam Head Exam: ATRAUMATIC, NORMAL INSPECTION - Eye Exam Eye Exam: EOMI, Normal appearance - ENT Exam ENT Exam: Mucous Membranes Moist, Normal Oropharynx - Neck Exam Neck Exam: absent: Lymphadenopathy, Thyromegaly - Respiratory Exam Respiratory Exam: absent: Rales, Rhonchi, Wheezes - Cardiovascular Exam Cardiovascular Exam: +S1, +S2. absent: Rubs - GI/Abdominal Exam GI & Abdominal Exam: Soft, Normal Bowel Sounds - Extremities Exam Extremities Exam: absent: Pedal Edema, Tenderness - Neurological Exam Neurological Exam: Alert, Awake - Skin Skin Exam: Dry, Intact Assessment and Plan (1) Ascites Status: Acute (2) ESRD (end stage renal disease) on dialysis Status: Acute (3) Hyperkalemia Status: Acute (4) Anemia Status: Chronic - Assessment and Plan (Free Text) Assessment: S/p 4l paracentesis and HD 5/6 tolerated well Hyperkalemia controlled Bp stable Maintain dialysis schedule Continue current care
[2019-01-26] MEDS ORDERED: Caffeine Citrated **INJ** 20 MG/ML IV ONE (08:21)
--- NOTE | 2019-01-26 16:17 | CP.PCM.PN ---
Subjective - Date & Time of Evaluation Date of Evaluation: 01/26/19 Time of Evaluation: 07:00 - Subjective Subjective: Progress note for Dr. Lauren. Patient seen and examined at bedside. States he feels much better. Abdominal pain and nausea have improved. Denies chest pain, shortness of breath, fevers, chills, vomiting, diarrhea, headache. Patient for echo and stress test today. Objective - Vital Signs/Intake and Output Vital Signs (last 24 hours): Temp Pulse Resp BP Pulse Ox 98 F 79 20 97/64 L 97 01/26/19 15:55 01/26/19 15:55 01/26/19 15:55 01/26/19 15:55 01/26/19 15:55 Intake and Output: 01/26/19 01/26/19 06:59 18:59 Intake Total 240 400 Balance 240 400 - Medications Medications: Current Medications Aspirin (Ecotrin) 81 mg PO DAILY [facility] Calcium Acetate (Phoslo) 667 mg PO ACHS [facility] Last Admin: 01/26/19 10:48 Dose: 667 mg Heparin Sodium (Porcine) (Heparin) 5,000 units SC Q12 [facility] Last Admin: 01/26/19 10:58 Dose: 5,000 units Nadolol (Corgard) 40 mg PO DAILY [facility] Last Admin: 01/26/19 10:48 Dose: 40 mg Nicotine (Nicoderm Cq) 1 patch TD DAILY [facility] Last Admin: 01/26/19 10:48 Dose: 1 patch Tamsulosin HCl (Flomax) 0.4 mg PO DAILY [facility] Last Admin: 01/26/19 10:48 Dose: 0.4 mg - Labs Labs: 01/26/19 06:36 01/26/19 06:36 PT 14.0 SECONDS (9.7-12.2) H 01/25/19 07:32 INR 1.3 01/25/19 07:32 APTT 30.0 SECONDS (21-34) 01/25/19 07:32 - Additional Findings Additional findings: - Constitutional Appears: Non-toxic, No Acute Distress - Head Exam Head Exam: ATRAUMATIC, NORMOCEPHALIC - Eye Exam Eye Exam: EOMI, Normal appearance - ENT Exam ENT Exam: Mucous Membranes Dry - Neck Exam Neck Exam: Full ROM, Normal Inspection - Respiratory Exam Respiratory Exam: Decreased Breath Sounds. absent: Rales, Rhonchi, Wheezes, Respiratory Distress - Cardiovascular Exam Cardiovascular Exam: REGULAR RHYTHM, +S1, +S2, Murmur (Systolic, 2nd intercostal space on the L) - GI/Abdominal Exam GI & Abdominal Exam: Non distendent, Soft, Normal Bowel Sounds. absent: Tenderness, Rebound - Extremities Exam Extremities Exam: Full ROM, Normal Capillary Refill, Normal Inspection. absent: Calf Tenderness, Joint Swelling, Pedal Edema, Tenderness - Neurological Exam Neurological Exam: Alert, Awake, CN II-XII Intact (grossly), Oriented x3 Neuro motor strength exam: Left Upper Extremity: 5, Right Upper Extremity: 5, Left Lower Extremity: 5, Right Lower Extremity: 5 - Psychiatric Exam Psychiatric exam: Normal Affect, Normal Mood - Skin Skin Exam: Normal Color, Warm Assessment and Plan - Assessment and Plan (Free Text) Plan: Patient is a 68 yo male with ESRD on HD MWF, CHF, cirrhosis, and HTN who presents with abdominal pain and distention. Patient with extensive ascites on CT. Ascites and Liver cirrhosis, recurrent- 2/2 to alcohol use - CT A/P: extensive cirrhosis - obstructive series xray - no SBO - IR consulted (Philip)- paracentesis performed 01/25/19, 4L removed - F/u Fluid studies, SAAG Systolic congestive heart failure (HFrEF), chronic QTc prolongation - EF 26% in 09/2018 - CXR: no acute disease - Echo 09/2018- EF 26%, likely pulmonary HTN, dilated RV with decreased systolic function. see full report - Cardiology consulted (Brodie) -Echo ordered -Lexiscan ordered - coreg changed to nadol 40 po daily per nephro - avoid meds that can increase qtc Nausea-Improved - marinol x 1 - avoid zofran for qtc prolongation End stage renal disease on Hemodialysis MWF, chronic - Phoslo 667 mg PO ACHS - Nephrology consulted (Darren); nandol 40 PO daily from coreg Hypertension, chronic - Vitals Q6H - Coreg 3.125 mg PO BID switched to nadolol 40 PO daily per nephro Prolonged QTc - No prior EKG - 514 on admission, repeat 569 - Avoid meds that can prolong QTc Hypothyroidism, chronic - Patient stopped taking Synthroid 125 mcg PO daily - elevated TSH 11.60; Free T4 1.31; will monitor Benign prostatic hypertrophy, chronic - Flomax 0.4 mg PO daily Tobacco use disorder, chronic - Nicoderm daily - Cessation counseling Hyperkalemia, acute- 2/2 ESRD - resolved - K 6.0 on admission - No pertinent EKG changes - Albuterol and Kayexalate given in ED Ppx: VTE: SCDs, heparin 5000 SC Q12H GI: not indicated Diet: Renal, Heart healthy Code status: full code Dispo: Pending peritoneal fluid studies. f/u echo and lexiscan, cardio recs. Discussed with Dr. Lauren. Anne Moran, PGY-1
--- NOTE | 2019-01-26 20:58 | CP.PCM.PN ---
Subjective - Date & Time of Evaluation Date of Evaluation: 01/25/19 Time of Evaluation: 16:30 - Subjective Subjective: Patient seen and evaluated Denies chest pain and dyspnea Review Of Systems Except As Marked, All Systems Reviewed And Found Negative. Constitutional: Negative for: Fever, Chills Cardiovascular: Negative for: Chest Pain Respiratory: Negative for: Shortness of Breath Gastrointestinal: Positive for: Other (Abdominal distension). Negative for: Nausea, Vomiting, Abdominal Pain Genitourinary: Negative for: Dysuria Musculoskeletal: Negative for: Back Pain Neurological: Negative for: Weakness, Dizziness Physical Exam - Physical Exam Appears: Well, Non-toxic, No Acute Distress Skin: Warm, Dry, No Rash Head: Atraumatic, Normacephalic Eye(s): bilateral: Normal Inspection, PERRL, EOMI Neck: Normal ROM Chest: Symmetrical Cardiovascular: Rhythm Regular, No Murmur Respiratory: No Accessory Muscle Use, Rales (faint rales at the bases), No Rhonchi, No Stridor Gastrointestinal/Abdominal: Bowel Sounds (slightly decreased), Soft, No Tenderness, Distention (abdomen very distended), No Rebound Back: No CVA Tenderness Extremity: No Pedal Edema Extremity: Left: Other (AV fistula to LUE), Bilateral: Atraumatic, Normal Color And Temperature Neurological/Psych: Oriented x3, Normal SpeechCC Assessment and Plan - Assessment and Plan (Free Text) Assessment: Patient is a 68 yo male with ESRD on HD MWF, CHF, cirrhosis, and HTN who presents with abdominal pain and distention. Patient with extensive ascites on CT. Ascites and Liver cirrhosis, recurrent- 2/2 to alcohol use - CT A/P: extensive cirrhosis - obstructive series xray - no SBO Systolic congestive heart failure (HFrEF), chronic QTc prolongation - EF 26% in 09/2018 - CXR: no venous congestion or pleural effusions - coreg changed to nadol 40 po daily per nephro - avoid meds that can increase qtc Nausea - no episodes of vomiting - marinol x 1 - avoid zofran for qtc prolongation End stage renal disease on Hemodialysis MWF, chronic - Phoslo 667 mg PO ACHS - Nephrology consulted (Darren); nandol 40 PO daily from coreg Hypertension, chronic - Vitals Q6H - Coreg 3.125 mg PO BID switched to nadolol 40 PO daily per nephro Prolonged QTc - No prior EKG - 514 on admission - Avoid meds that can prolong QTc Hypothyroidism, chronic - Patient stopped taking Synthroid 125 mcg PO daily - elevated TSH 11.60; Free T4 1.31; will monitor Benign prostatic hypertrophy, chronic - Flomax 0.4 mg PO daily Tobacco use disorder, chronic - Nicoderm daily - Cessation counseling Hyperkalemia, acute- 2/2 ESRD - resolved - K 6.0 on admission - Repeat pending - No pertinent EKG changes - Albuterol and Kayexalate given in ED Ppx: VTE: SCDs, chemical anticoag contraindicated prior to procedure, patient ambulatory GI: not indicate Diet: Renal, Heart healthy Objective - Vital Signs/Intake and Output Vital Signs (last 24 hours): Temp Pulse Resp BP Pulse Ox 98 F 51 L 20 99/67 L 97 01/26/19 15:55 01/26/19 16:59 01/26/19 15:55 01/26/19 16:59 01/26/19 15:55 Intake and Output: 01/26/19 01/27/19 18:59 06:59 Intake Total 400 Balance 400 - Medications Medications: Current Medications Aspirin (Ecotrin) 81 mg PO DAILY [facility] Calcium Acetate (Phoslo) 667 mg PO ACHS [facility] Last Admin: 01/26/19 17:23 Dose: 667 mg Heparin Sodium (Porcine) (Heparin) 5,000 units SC Q12 [facility] Last Admin: 01/26/19 10:58 Dose: 5,000 units Nadolol (Corgard) 40 mg PO DAILY [facility] Last Admin: 01/26/19 10:48 Dose: 40 mg Nicotine (Nicoderm Cq) 1 patch TD DAILY [facility] Last Admin: 01/26/19 10:48 Dose: 1 patch Tamsulosin HCl (Flomax) 0.4 mg PO DAILY [facility] Last Admin: 01/26/19 10:48 Dose: 0.4 mg - Labs Labs: 01/26/19 06:36 01/26/19 06:36 PT 14.0 SECONDS (9.7-12.2) H 01/25/19 07:32 INR 1.3 01/25/19 07:32 APTT 30.0 SECONDS (21-34) 01/25/19 07:32
--- NOTE | 2019-01-26 21:02 | CP.PCM.PN ---
Subjective - Date & Time of Evaluation Date of Evaluation: 01/26/19 Time of Evaluation: 17:40 - Subjective Subjective: Patient seen and evaluated Denies chest pain and dyspnea Review Of Systems Except As Marked, All Systems Reviewed And Found Negative. Constitutional: Negative for: Fever, Chills Cardiovascular: Negative for: Chest Pain Respiratory: Negative for: Shortness of Breath Gastrointestinal: Positive for: Other (Abdominal distension). Negative for: Nausea, Vomiting, Abdominal Pain Genitourinary: Negative for: Dysuria Musculoskeletal: Negative for: Back Pain Neurological: Negative for: Weakness, Dizziness Physical Exam - Physical Exam Appears: Well, Non-toxic, No Acute Distress Skin: Warm, Dry, No Rash Head: Atraumatic, Normacephalic Eye(s): bilateral: Normal Inspection, PERRL, EOMI Neck: Normal ROM Chest: Symmetrical Cardiovascular: Rhythm Regular, No Murmur Respiratory: No Accessory Muscle Use, Rales (faint rales at the bases), No Rhonchi, No Stridor Gastrointestinal/Abdominal: Bowel Sounds (slightly decreased), Soft, No Tenderness, Distention (abdomen very distended), No Rebound Back: No CVA Tenderness Extremity: No Pedal Edema Extremity: Left: Other (AV fistula to LUE), Bilateral: Atraumatic, Normal Color And Temperature Neurological/Psych: Oriented x3, Normal SpeechCC Assessment and Plan - Assessment and Plan (Free Text) Assessment: Patient is a 68 yo male with ESRD on HD MWF, CHF, cirrhosis, and HTN who presents with abdominal pain and distention. Patient with extensive ascites on CT. Ascites and Liver cirrhosis, recurrent- 2/2 to alcohol use - CT A/P: extensive cirrhosis - obstructive series xray - no SBO Systolic congestive heart failure (HFrEF), chronic QTc prolongation - EF 26% in 09/2018 - CXR: no venous congestion or pleural effusions - coreg changed to nadol 40 po daily per nephro - avoid meds that can increase qtc Nausea - no episodes of vomiting - marinol x 1 - avoid zofran for qtc prolongation End stage renal disease on Hemodialysis MWF, chronic - Phoslo 667 mg PO ACHS - Nephrology consulted (Darren); nandol 40 PO daily from coreg Hypertension, chronic - Vitals Q6H - Coreg 3.125 mg PO BID switched to nadolol 40 PO daily per nephro Prolonged QTc - No prior EKG - 514 on admission - Avoid meds that can prolong QTc Hypothyroidism, chronic - Patient stopped taking Synthroid 125 mcg PO daily - elevated TSH 11.60; Free T4 1.31; will monitor Benign prostatic hypertrophy, chronic - Flomax 0.4 mg PO daily Tobacco use disorder, chronic - Nicoderm daily - Cessation counseling Hyperkalemia, acute- 2/2 ESRD - resolved - K 6.0 on admission - Repeat pending - No pertinent EKG changes - Albuterol and Kayexalate given in ED Ppx: VTE: SCDs, chemical anticoag contraindicated prior to procedure, patient ambulatory GI: not indicate Diet: Renal, Heart healthy Stress test: Negative ECHO: Biventricular Failure, Severe Pulmonary HTN, Severe TR and Moderate to Severe TR Life Vest BiV AICD eval as out patient Objective - Vital Signs/Intake and Output Vital Signs (last 24 hours): Temp Pulse Resp BP Pulse Ox 98 F 51 L 20 99/67 L 97 01/26/19 15:55 01/26/19 16:59 01/26/19 15:55 01/26/19 16:59 01/26/19 15:55 Intake and Output: 01/26/19 01/27/19 18:59 06:59 Intake Total 400 Balance 400 - Medications Medications: Current Medications Aspirin (Ecotrin) 81 mg PO DAILY [facility] Calcium Acetate (Phoslo) 667 mg PO ACHS [facility] Last Admin: 01/26/19 17:23 Dose: 667 mg Heparin Sodium (Porcine) (Heparin) 5,000 units SC Q12 [facility] Last Admin: 01/26/19 10:58 Dose: 5,000 units Nadolol (Corgard) 40 mg PO DAILY [facility] Last Admin: 01/26/19 10:48 Dose: 40 mg Nicotine (Nicoderm Cq) 1 patch TD DAILY [facility] Last Admin: 01/26/19 10:48 Dose: 1 patch Tamsulosin HCl (Flomax) 0.4 mg PO DAILY [facility] Last Admin: 01/26/19 10:48 Dose: 0.4 mg - Labs Labs: 01/26/19 06:36 01/26/19 06:36 PT 14.0 SECONDS (9.7-12.2) H 01/25/19 07:32 INR 1.3 01/25/19 07:32 APTT 30.0 SECONDS (21-34) 01/25/19 07:32
--- NOTE | 2019-01-27 04:16 | CARD ---
APPROVED REPORT Date of service: 01/26/2019 EXAM: Two-dimensional and M-mode echocardiogram with Doppler and color Doppler. Other Information Quality : GoodRhythm : INDICATION LV Function:SystolicDiastolic ESRD,CIRRHOSIS 2D DIMENSIONS IVSd1.1 (0.7-1.1cm)LVDd5.3 (3.9-5.9cm) PWd0.8 (0.7-1.1cm)LA [id number] (18-58mL) LVDs4.8 (2.5-4.0cm)FS (%) 9.0 % LVEF (%)11.7 (>50%)LVEF (Painting's)7.78 % IVC0.00 cm M-Mode DIMENSIONS RVDd2.81 (2.1-3.2cm)Left Atrium (MM)4.09 (2.5-4.0cm) IVSd1.22 (0.7-1.1cm)Aortic Root3.46 (2.2-3.7cm) LVDd5.17 (4.0-5.6cm)Aortic Cusp Exc.2.06 (1.5-2.0cm) PWd1.02 (0.7-1.1cm)FS (%) 11 % LVDs4.60 (2.0-3.8cm)TAPSE10.71 cm LVEF (%)12 (>50%) Aortic Valve AI P 1/2 Kies540ex Mitral Valve MV E Xfhacnrg60.9cm/sMV A Esfloldd71.7cm/sE/A ratio3.6 ISVU023.18 cm/s TDI Lateral E' Peak V8.16cm/sMedial E' Peak V4.16cm/sE/Lateral E'10.0 E/Medial E'19.7 Tricuspid Valve TR Peak Gutchufs777kk/sTR Peak Gr.[id number] LEFT VENTRICLE The left ventricle is normal size. There is normal left ventricular wall thickness. Left ventricle systolic function is severely impaired. The Ejection Fraction is 10-15%. There is severe global hypokinesis of the left ventricle. There is a flattened septum consistent with right ventricle volume and pressure overload. The left ventricular diastolic function is normal. No left ventricle thrombus noted on this study. RIGHT VENTRICLE The right ventricle is normal size. There is normal right ventricular wall thickness. Systolic function is severely reduced. ATRIA The left atrium is mildly dilated. The right atrium is mildly dilated. The interatrial septum is intact with no evidence for an atrial septal defect. AORTIC VALVE The aortic valve is normal in structure. There is trace aortic regurgitation. There is no aortic valvular stenosis. MITRAL VALVE The mitral valve is normal in structure. There is no evidence of mitral valve prolapse. There is no mitral valve stenosis. Mitral regurgitation is mild. TRICUSPID VALVE The tricuspid valve is normal in structure. There is moderate to severe tricuspid regurgitation. Right ventricular systolic pressure is estimated at less than 30 mmHg. There is no pulmonary hypertension. PULMONIC VALVE The pulmonic valve is not well visualized. There is mild pulmonic valvular regurgitation. GREAT VESSELS The aortic root is normal in size. PERICARDIAL EFFUSION There is a small loculated posterior pericardial effusion. <Conclusion> Left ventricle systolic function is severely impaired. The Ejection Fraction is 10-15%. There is severe global hypokinesis of the left ventricle. There is trace aortic regurgitation. Mitral regurgitation is mild. There is moderate to severe tricuspid regurgitation. There is no pulmonary hypertension. There is mild pulmonic valvular regurgitation.
--- NOTE | 2019-01-27 07:10 | CP.PCM.HP ---
History of Present Illness - History of Present Illness History of Present Illness: PGY-[address] Lauren Past Patient History - Infectious Disease Hx of Infectious Diseases: None - Tetanus Immunizations Tetanus Immunization: Unknown - Past Medical History & Family History Past Medical History?: Yes Past Family History: Reviewed and not pertinent - Past Social History Smoking Status: Current Some Days Smoker Chewing Tobacco Use: No Cigar Use: Yes Alcohol: Occasional (former heavy drinker) Home Situation {Lives}: With Family (son Raman) - CARDIAC Hx Atrial Fibrillation: No Hx Cardia Arrhythmia: No Hx Congestive Heart Failure: No Hx Hypercholesterolemia: No Hx Hypertension: Yes Hx Mitral Valve Prolapse: No Hx Pacemaker: No Hx Peripheral Edema: Yes (left arm and hand edema) - PULMONARY Hx Respiratory Disorders: No - NEUROLOGICAL Hx Alzheimer's Disease: No Hx Dementia: No Hx Migraine: No Hx Multiple Sclerosis: No Hx Parkinson's Disease: No Hx Seizures: No Hx Transient Ischemic Attacks (TIA): No - HEENT Hx HEENT Problems: No - RENAL Hx Chronic Kidney Disease: Yes Hx Kidney Stones: No - ENDOCRINE/METABOLIC Hx Hyperthyroidism: No Hx Hypothyroidism: Yes - HEMATOLOGICAL/ONCOLOGICAL Hx Anemia: No Hx Human Immunodeficiency Virus (HIV): No Hx Sickle Cell Disease: No - INTEGUMENTARY Hx Dermatological Problems: No - MUSCULOSKELETAL/RHEUMATOLOGICAL Hx Arthritis: Yes Hx Fractures: No Hx Osteoporosis: No Hx Rheumatoid Arthritis: No - GASTROINTESTINAL Hx Crohn's Disease: No Hx Diverticulitis: No Hx Gall Bladder Disease: No Hx Gastritis: No - GENITOURINARY/GYNECOLOGICAL Hx Sexually Transmitted Disorders: No - PSYCHIATRIC Hx Anxiety: No Hx Bipolar Disorder: No Hx Depression: No Hx Paranoia: No Hx Post Traumatic Stress Disorder: No Hx Schizophrenia: No Hx Substance Use: Yes - SURGICAL HISTORY Hx Appendectomy: No Hx Carotid Endarterectomy: No Hx Cholecystectomy: Yes Hx Coronary Artery Bypass Graft: No Hx Coronary Stent: No Hx Tonsillectomy: No - ANESTHESIA Hx Anesthesia: Yes Hx Anesthesia Reactions: Yes Hx Malignant Hyperthermia: No Meds Allergies/Adverse Reactions: Allergies Allergy/AdvReac Type Severity Reaction Status Date / Time No Known Allergies Allergy Verified 01/22/19 10:14 Results - Vital Signs Recent Vital Signs: Last Vital Signs Temp 98.4 F 01/27/19 04:36 Pulse 55 L 01/27/19 06:09 Resp 20 01/27/19 04:36 BP 96/60 L 01/27/19 04:36 Pulse Ox 100 01/27/19 04:36 - Labs Result Diagrams: 01/26/19 06:36 01/26/19 06:36
[2019-01-27 07:30] LABS: EOS # 0.1 K/uL (0.0-0.7); EOS % 2.1 % (0.0-4.0); HEMOGLOBIN 12.9 g/dL (12.0-18.0); LYMPH # 0.8 K/uL (1.0-4.3); LYMPH % 17.2 % (20.0-40.0); MEAN CELL VOLUME 95.8 fL (80.0-94.0); MEAN CORPUSCULAR HEMOGLOBIN 31.6 pg (27.0-31.0); MEAN PLATELET VOLUME 10.1 fL (7.2-11.7); MONO # 0.4 K/uL (0.0-0.8); MONO % 7.7 % (0.0-10.0); NEUT # 3.3 K/uL (1.8-7.0); NRBC % 0.6 % (0.0-2.0); RBC 4.07 Mil/uL (4.40-5.90); RED CELL DISTRIBUTION WIDTH 15.7 % (11.5-14.5); WHITE BLOOD COUNT 4.6 K/uL (4.8-10.8)
[2019-01-27 08:20] LABS: ALB/GLOB RATIO 1.1 (1.0-2.1); ALBUMIN 3.5 g/dL (3.5-5.0); CALCIUM 8.9 mg/dl (8.6-10.4)
--- NOTE | 2019-01-27 09:44 | CP.PCM.PN ---
Subjective - Date & Time of Evaluation Date of Evaluation: 01/27/19 Time of Evaluation: 09:41 - Subjective Subjective: PGY-[address] Lauren Patient seen and examined at bedside. No acute events overnight. He has no new complaints at this time.He denies fevers, chills, shortness of breath, chest pain, abdominal pain, nausea, vomiting, diarrhea. Objective - Vital Signs/Intake and Output Vital Signs (last 24 hours): Temp Pulse Resp BP Pulse Ox 97.5 F L 60 20 109/71 97 01/27/19 07:20 01/27/19 07:20 01/27/19 07:20 01/27/19 07:20 01/27/19 07:20 Intake and Output: 01/27/19 01/27/19 06:59 18:59 Intake Total 240 Balance 240 - Medications Medications: Current Medications Aspirin (Ecotrin) 81 mg PO DAILY [facility] Calcium Acetate (Phoslo) 667 mg PO ACHS [facility] Last Admin: 01/27/19 08:21 Dose: 667 mg Heparin Sodium (Porcine) (Heparin) 5,000 units SC Q12 [facility] Last Admin: 01/26/19 21:18 Dose: 5,000 units Nadolol (Corgard) 40 mg PO DAILY [facility] Last Admin: 01/26/19 10:48 Dose: 40 mg Nicotine (Nicoderm Cq) 1 patch TD DAILY [facility] Last Admin: 01/26/19 10:48 Dose: 1 patch Tamsulosin HCl (Flomax) 0.4 mg PO DAILY [facility] Last Admin: 01/26/19 10:48 Dose: 0.4 mg - Labs Labs: 01/27/19 07:17 01/27/19 07:17 PT 14.0 SECONDS (9.7-12.2) H 01/25/19 07:32 INR 1.3 01/25/19 07:32 APTT 30.0 SECONDS (21-34) 01/25/19 07:32 - Additional Findings Additional findings: - Constitutional Appears: Non-toxic, No Acute Distress - Head Exam Head Exam: ATRAUMATIC, NORMOCEPHALIC - Eye Exam Eye Exam: EOMI, Normal appearance - ENT Exam ENT Exam: Mucous Membranes Dry - Neck Exam Neck Exam: Full ROM, Normal Inspection - Respiratory Exam Respiratory Exam: Decreased Breath Sounds. absent: Rales, Rhonchi, Wheezes, Respiratory Distress - Cardiovascular Exam Cardiovascular Exam: REGULAR RHYTHM, +S1, +S2, Murmur (Systolic, 2nd intercostal space on the L) - GI/Abdominal Exam GI & Abdominal Exam: Non distendent, Soft, Normal Bowel Sounds. absent: Tenderness, Rebound - Extremities Exam Extremities Exam: Full ROM, Normal Capillary Refill, Normal Inspection. absent: Calf Tenderness, Joint Swelling, Pedal Edema, Tenderness - Neurological Exam Neurological Exam: Alert, Awake, CN II-XII Intact (grossly), Oriented x3 Neuro motor strength exam: Left Upper Extremity: 5, Right Upper Extremity: 5, Left Lower Extremity: 5, Right Lower Extremity: 5 - Psychiatric Exam Psychiatric exam: Normal Affect, Normal Mood - Skin Skin Exam: Normal Color, Warm Assessment and Plan - Assessment and Plan (Free Text) Assessment: Patient is a 68 yo male with ESRD on HD MWF, CHF, cirrhosis, and HTN who presents with abdominal pain and distention. Patient with extensive ascites on CT. Plan: Recurrent ascites and Liver cirrhosis - Likely 2/2 to alcohol use - CT A/P: extensive cirrhosis - Obstructive series xray - no SBO - IR consulted, Dr. Palacios- paracentesis performed 01/25/19, 4L removed - F/u Fluid studies, SAAG Systolic congestive heart failure (HFrEF) - CXR: no acute disease - Echo: EF 10-15%. Sever global hypokinesis of LV. - Stress test: - Cardiology consulted, - Patient requires a life vest - BiV AICD evaluation as outpatient with Dr. Calloway - EKG: SInus bradycardia @ 58 bpm, QTc prolongation, left axis deviation - Continue Nadol 40mg PO QD - Avoid meds that can prolong QTc Nausea - Marinol x 1 - Avoid zofran for QTc prolongation End stage renal disease on Hemodialysis MWF - Phoslo 667 mg PO ACHS - Nephrology consulted , Hypertension - Nadolol 40mg PO QD - Continue to monitor Prolonged QTc - EKG: SInus bradycardia @ 58 bpm, QTc prolongation, left axis deviation - 514 on admission, repeat 569 - Avoid meds that can prolong QTc Hypothyroidism - Patient stopped taking Synthroid 125 mcg PO daily - Elevated TSH 11.60; Free T4 1.31 Benign prostatic hypertrophy - Flomax 0.4 mg PO QD Tobacco use disorder - Nicoderm daily - COunselled on smokimg cessation Hyperkalemia, resolved - Continue to monitor Prophylaxis: DVT: SCDs, Heparin 5000u SC Q12H GI: not indicated Code status: full code Dispo: Pending peritoneal fluid studies. BiV AICD evaluation as outpatient with Dr. Calloway. Patient seen and case discussed with Dr. Leonidas Beatty, PGY-1
[2019-01-27 09:48] VITALS: O2SAT 100
--- NOTE | 2019-01-27 15:09 | CP.PCM.PN ---
Subjective - Date & Time of Evaluation Date of Evaluation: 01/27/19 Time of Evaluation: 15:06 - Subjective Subjective: s/p HD today mild hypotension waiting for life vest no chest pain no sob appetite fair no fever no abdominal pain decreased urine no rash no arthralgias no headache Objective - Vital Signs/Intake and Output Vital Signs (last 24 hours): Temp Pulse Resp BP Pulse Ox 97.4 F L 67 17 111/76 100 01/27/19 12:05 01/27/19 13:16 01/27/19 12:05 01/27/19 13:16 01/27/19 12:05 Intake and Output: 01/27/19 01/27/19 06:59 18:59 Intake Total 240 Balance 240 - Medications Medications: Current Medications Aspirin (Ecotrin) 81 mg PO DAILY [facility] Calcium Acetate (Phoslo) 667 mg PO ACHS [facility] Last Admin: 01/27/19 13:15 Dose: 667 mg Heparin Sodium (Porcine) (Heparin) 5,000 units SC Q12 [facility] Last Admin: 01/27/19 13:09 Dose: 5,000 units Nadolol (Corgard) 40 mg PO DAILY [facility] Last Admin: 01/27/19 13:10 Dose: 40 mg Nicotine (Nicoderm Cq) 1 patch TD DAILY [facility] Last Admin: 01/27/19 13:10 Dose: 1 patch Tamsulosin HCl (Flomax) 0.4 mg PO DAILY [facility] Last Admin: 01/27/19 13:09 Dose: 0.4 mg - Labs Labs: 01/27/19 07:17 01/27/19 07:17 PT 14.0 SECONDS (9.7-12.2) H 01/25/19 07:32 INR 1.3 01/25/19 07:32 APTT 30.0 SECONDS (21-34) 01/25/19 07:32 - Constitutional Appears: No Acute Distress, Chronically Ill - Head Exam Head Exam: ATRAUMATIC, NORMAL INSPECTION - Eye Exam Eye Exam: EOMI - ENT Exam ENT Exam: Mucous Membranes Moist - Neck Exam Neck Exam: Full ROM. absent: Lymphadenopathy - Respiratory Exam Respiratory Exam: Decreased Breath Sounds, NORMAL BREATHING PATTERN - Cardiovascular Exam Cardiovascular Exam: REGULAR RHYTHM. absent: Rubs - GI/Abdominal Exam GI & Abdominal Exam: Distended, Soft. absent: Tenderness - Extremities Exam Extremities Exam: absent: Pedal Edema - Neurological Exam Neurological Exam: Alert, Awake, Oriented x3 Assessment and Plan - Assessment and Plan (Free Text) Assessment: dialysis dependent, for HD on Friday mild hypotension, to monitor hyperkalemia, consider Veltessa s/p recurrent paracentesis for life vest
--- NOTE | 2019-01-28 06:37 | CP.PCM.PN ---
Subjective - Date & Time of Evaluation Date of Evaluation: 01/27/19 Time of Evaluation: 18:30 - Subjective Subjective: Patient seen and evaluated Denies chest pain and dyspnea Review Of Systems Except As Marked, All Systems Reviewed And Found Negative. Constitutional: Negative for: Fever, Chills Cardiovascular: Negative for: Chest Pain Respiratory: Negative for: Shortness of Breath Gastrointestinal: Positive for: Other (Abdominal distension). Negative for: Nausea, Vomiting, Abdominal Pain Genitourinary: Negative for: Dysuria Musculoskeletal: Negative for: Back Pain Neurological: Negative for: Weakness, Dizziness Physical Exam - Physical Exam Appears: Well, Non-toxic, No Acute Distress Skin: Warm, Dry, No Rash Head: Atraumatic, Normacephalic Eye(s): bilateral: Normal Inspection, PERRL, EOMI Neck: Normal ROM Chest: Symmetrical Cardiovascular: Rhythm Regular, No Murmur Respiratory: No Accessory Muscle Use, Rales (faint rales at the bases), No Rhonchi, No Stridor Gastrointestinal/Abdominal: Bowel Sounds (slightly decreased), Soft, No Tenderness, Distention (abdomen very distended), No Rebound Back: No CVA Tenderness Extremity: No Pedal Edema Extremity: Left: Other (AV fistula to LUE), Bilateral: Atraumatic, Normal Color And Temperature Neurological/Psych: Oriented x3, Normal SpeechCC Assessment and Plan - Assessment and Plan (Free Text) Assessment: Patient is a 68 yo male with ESRD on HD MWF, CHF, cirrhosis, and HTN who presents with abdominal pain and distention. Patient with extensive ascites on CT. Ascites and Liver cirrhosis, recurrent- 2/2 to alcohol use - CT A/P: extensive cirrhosis - obstructive series xray - no SBO Systolic congestive heart failure (HFrEF), chronic QTc prolongation - EF 26% in 09/2018 - CXR: no venous congestion or pleural effusions - coreg changed to nadol 40 po daily per nephro - avoid meds that can increase qtc Nausea - no episodes of vomiting - marinol x 1 - avoid zofran for qtc prolongation End stage renal disease on Hemodialysis MWF, chronic - Phoslo 667 mg PO ACHS - Nephrology consulted (Darren); nandol 40 PO daily from coreg Hypertension, chronic - Vitals Q6H - Coreg 3.125 mg PO BID switched to nadolol 40 PO daily per nephro Prolonged QTc - No prior EKG - 514 on admission - Avoid meds that can prolong QTc Hypothyroidism, chronic - Patient stopped taking Synthroid 125 mcg PO daily - elevated TSH 11.60; Free T4 1.31; will monitor Benign prostatic hypertrophy, chronic - Flomax 0.4 mg PO daily Tobacco use disorder, chronic - Nicoderm daily - Cessation counseling Hyperkalemia, acute- 2/2 ESRD - resolved - K 6.0 on admission - Repeat pending - No pertinent EKG changes - Albuterol and Kayexalate given in ED Ppx: VTE: SCDs, chemical anticoag contraindicated prior to procedure, patient ambulatory GI: not indicate Diet: Renal, Heart healthy Stress test: Negative ECHO: Biventricular Failure, Severe Pulmonary HTN, Severe TR and Moderate to Severe TR Life Vest BiV AICD eval as out patient Objective - Vital Signs/Intake and Output Vital Signs (last 24 hours): Temp Pulse Resp BP Pulse Ox 98.0 F 59 L 20 95/57 L 100 01/27/19 15:45 01/28/19 01:00 01/27/19 15:45 01/28/19 04:00 01/27/19 15:45 Intake and Output: 01/27/19 01/28/19 18:59 06:59 Intake Total 320 Balance 320 - Medications Medications: Current Medications Aspirin (Ecotrin) 81 mg PO DAILY [facility] Calcium Acetate (Phoslo) 667 mg PO ACHS [facility] Last Admin: 01/27/19 21:11 Dose: 667 mg Heparin Sodium (Porcine) (Heparin) 5,000 units SC Q12 [facility] Last Admin: 01/27/19 21:11 Dose: 5,000 units Nadolol (Corgard) 40 mg PO DAILY [facility] Last Admin: 01/27/19 13:10 Dose: 40 mg Nicotine (Nicoderm Cq) 1 patch TD DAILY [facility] Last Admin: 01/27/19 13:10 Dose: 1 patch Tamsulosin HCl (Flomax) 0.4 mg PO DAILY [facility] Last Admin: 01/27/19 13:09 Dose: 0.4 mg - Labs Labs: 01/27/19 07:17 01/27/19 07:17 PT 14.0 SECONDS (9.7-12.2) H 01/25/19 07:32 INR 1.3 01/25/19 07:32 APTT 30.0 SECONDS (21-34) 01/25/19 07:32
[2019-01-28 06:45] LABS: TOTAL PROTEIN PERITONEAL FLUID 4.1 g/dL
[2019-01-28 08:27] LABS: BASO % 0.8 % (0.0-2.0); EOS # 0.2 K/uL (0.0-0.7); EOS % 4.1 % (0.0-4.0); HEMOGLOBIN 12.3 g/dL (12.0-18.0); LYMPH # 0.9 K/uL (1.0-4.3); LYMPH % 18.7 % (20.0-40.0); MEAN CELL VOLUME 95.2 fL (80.0-94.0); MEAN CORPUSCULAR HEMOGLOBIN 31.6 pg (27.0-31.0); MEAN CORPUSCULAR HGB CONC 33.2 g/dL (33.0-37.0); MEAN PLATELET VOLUME 9.7 fL (7.2-11.7); MONO # 0.4 K/uL (0.0-0.8); MONO % 8.9 % (0.0-10.0); NEUT # 3.2 K/uL (1.8-7.0); NEUT % 67.5 % (50.0-75.0); NRBC % 0.4 % (0.0-2.0); RBC 3.89 Mil/uL (4.40-5.90); WHITE BLOOD COUNT 4.8 K/uL (4.8-10.8)
[2019-01-28 08:39] LABS: ALB/GLOB RATIO 1.1 (1.0-2.1); ALBUMIN 3.5 g/dL (3.5-5.0); CALCIUM 8.7 mg/dl (8.6-10.4)
--- NOTE | 2019-01-28 14:09 | CP.PCM.PN ---
Subjective - Date & Time of Evaluation Date of Evaluation: 01/28/19 Time of Evaluation: 14:06 - Subjective Subjective: in chair, eating lunch no abdominal pain no dizziness no SOB afebrile cultures negative so far ROS- as per HPI, other than that 10 point ROS negative Objective - Vital Signs/Intake and Output Vital Signs (last 24 hours): Temp Pulse Resp BP Pulse Ox 98.0 F 54 L 20 99/63 L 100 01/28/19 08:24 01/28/19 08:24 01/28/19 08:24 01/28/19 12:10 01/28/19 08:24 Intake and Output: 01/28/19 01/28/19 06:59 18:59 Intake Total 320 Balance 320 - Medications Medications: Current Medications Aspirin (Ecotrin) 81 mg PO DAILY [facility] Calcium Acetate (Phoslo) 667 mg PO ACHS [facility] Last Admin: 01/28/19 12:10 Dose: 667 mg Digoxin (Digoxin) 0.0625 mg PO Q48H [facility] Enalapril Maleate (Vasotec) 2.5 mg PO DAILY [facility] Last Admin: 01/28/19 12:10 Dose: Not Given Heparin Sodium (Porcine) (Heparin) 5,000 units SC Q12 [facility] Last Admin: 01/28/19 09:21 Dose: 5,000 units Levothyroxine Sodium (Synthroid) 125 mcg PO DAILY@0630 [facility] Nadolol (Corgard) 20 mg PO DAILY [facility] Last Admin: 01/28/19 09:21 Dose: 20 mg Nicotine (Nicoderm Cq) 1 patch TD DAILY [facility] Last Admin: 01/28/19 09:21 Dose: 1 patch Tamsulosin HCl (Flomax) 0.4 mg PO DAILY [facility] Last Admin: 01/28/19 09:20 Dose: 0.4 mg - Labs Labs: 01/28/19 08:15 01/28/19 08:15 PT 14.0 SECONDS (9.7-12.2) H 01/25/19 07:32 INR 1.3 01/25/19 07:32 APTT 30.0 SECONDS (21-34) 01/25/19 07:32 - Constitutional Appears: Well, Non-toxic - Head Exam Head Exam: ATRAUMATIC, NORMOCEPHALIC - Eye Exam Eye Exam: EOMI, PERRL - ENT Exam ENT Exam: Mucous Membranes Moist - Neck Exam Neck Exam: Full ROM - Respiratory Exam Respiratory Exam: Clear to Ausculation Bilateral. absent: Rhonchi, Wheezes - Cardiovascular Exam Cardiovascular Exam: REGULAR RHYTHM, +S1, +S2 - GI/Abdominal Exam GI & Abdominal Exam: Distended, Soft Additional comments: ascitis - Extremities Exam Extremities Exam: Full ROM. absent: Pedal Edema - Neurological Exam Neurological Exam: Alert, Awake, Oriented x3 - Psychiatric Exam Psychiatric exam: Normal Affect, Normal Mood - Skin Skin Exam: Normal Color, Warm Assessment and Plan (1) Ascites Status: Acute (2) Cirrhosis Status: Acute (3) ESRD (end stage renal disease) on dialysis Status: Acute (4) Hyperkalemia Status: Acute - Assessment and Plan (Free Text) Plan: s/p paracentesis cultures negative so far stop enalapril for low BP on low dose nadolol awaiting life vest HD in am
--- NOTE | 2019-01-28 14:57 | CP.PCM.DIS ---
Provider - Provider Date of Admission: 01/22/19 13:30 Attending physician: Donell Lauren Jr, MD Consults: 01/22/19 13:50 Nephrology Consult Stat Comment: Consulting Provider: Robert Banks Consulting Physician: Robert Banks Reason for Consult: ESRD on HD MWF 01/22/19 14:41 Cardiology Consult Routine Comment: Consulting Provider: Elan Calloway Consulting Physician: Elan Calloway Reason for Consult: CHF, prev EF 26% Physician Consult Routine Comment: Consulting Provider: Jack Palacios Consulting Physician: Jack Palacios Reason for Consult: paracentesis Time Spent in preparation of Discharge (in minutes): 35 Diagnosis - Discharge Diagnosis (1) Ascites Status: Acute (2) CHF (congestive heart failure) Status: Chronic Hospital Course - Lab Results Lab Results: Micro Results 01/25/19 16:41 Ascitic Fluid Gram Stain - Final 01/25/19 16:41 Ascitic Fluid Body Fluid Culture - Preliminary NO GROWTH AFTER 3 DAYS 01/25/19 16:41 Other: Please Indicate Mycobacterial Culture - Preliminary 01/25/19 16:41 Ascitic Fluid Anaerobic Culture - Final NO ANAEROBES ISOLATED. 01/25/19 16:41 Other: Please Indicate Fungal Culture - Preliminary Most Recent Lab Values WBC 4.8 K/uL (4.8-10.8) 01/28/19 08:15 RBC 3.89 Mil/uL (4.40-5.90) L 01/28/19 08:15 Hgb 12.3 g/dL (12.0-18.0) 01/28/19 08:15 Hct 37.0 % (35.0-51.0) 01/28/19 08:15 MCV 95.2 fL (80.0-94.0) H 01/28/19 08:15 MCH 31.6 pg (27.0-31.0) H 01/28/19 08:15 MCHC 33.2 g/dL (33.0-37.0) 01/28/19 08:15 RDW 16.0 % (11.5-14.5) H 01/28/19 08:15 Plt Count 106 K/uL (130-400) L 01/28/19 08:15 MPV 9.7 fL (7.2-11.7) 01/28/19 08:15 Neut % (Auto) 67.5 % (50.0-75.0) 01/28/19 08:15 Lymph % (Auto) 18.7 % (20.0-40.0) L 01/28/19 08:15 [place] % (Auto) 8.9 % (0.0-10.0) 01/28/19 08:15 Eos % (Auto) 4.1 % (0.0-4.0) H 01/28/19 08:15 Baso % (Auto) 0.8 % (0.0-2.0) 01/28/19 08:15 Neut # (Auto) 3.2 K/uL (1.8-7.0) 01/28/19 08:15 Lymph # (Auto) 0.9 K/uL (1.0-4.3) L 01/28/19 08:15 [place] # (Auto) 0.4 K/uL (0.0-0.8) 01/28/19 08:15 Eos # (Auto) 0.2 K/uL (0.0-0.7) 01/28/19 08:15 Baso # (Auto) 0.0 K/uL (0.0-0.2) 01/28/19 08:15 Differential Comment 01/28/19 08:15 PT 14.0 SECONDS (9.7-12.2) H 01/25/19 07:32 INR 1.3 01/25/19 07:32 APTT 30.0 SECONDS (21-34) 01/25/19 07:32 Sodium 135 mmol/L (132-148) 01/28/19 08:15 Potassium 4.7 mmol/L (3.6-5.2) 01/28/19 08:15 Chloride 91 mmol/L (98-107) L 01/28/19 08:15 Carbon Dioxide 30 mmol/L (22-30) 01/28/19 08:15 Anion Gap 20 (10-20) 01/28/19 08:15 BUN 34 mg/dL (9-20) H 01/28/19 08:15 Creatinine 4.5 mg/dL (0.8-1.5) H 01/28/19 08:15 Est GFR ( Amer) 16 01/28/19 08:15 Est GFR (Non-Af Amer) 13 01/28/19 08:15 Random Glucose 78 mg/dL (75-110) 01/28/19 08:15 Calcium 8.7 mg/dl (8.6-10.4) 01/28/19 08:15 Phosphorus 3.6 mg/dL (2.5-4.5) 01/28/19 08:15 Magnesium 2.3 mg/dL (1.6-2.3) 01/28/19 08:15 Total Bilirubin 0.8 mg/dL (0.2-1.3) 01/28/19 08:15 AST 18 U/L (17-59) 01/28/19 08:15 ALT 23 U/L (21-72) 01/28/19 08:15 Alkaline Phosphatase 179 U/L (38-126) H 01/28/19 08:15 Total Protein 6.6 g/dL (6.3-8.3) 01/28/19 08:15 Albumin 3.5 g/dL (3.5-5.0) 01/28/19 08:15 Globulin 3.1 gm/dL (2.2-3.9) 01/28/19 08:15 Albumin/Globulin Ratio 1.1 (1.0-2.1) 01/28/19 08:15 Triglycerides 63 mg/dL (0-149) D 01/23/19 06:02 Cholesterol 112 mg/dL (0-199) 01/23/19 06:02 LDL Cholesterol Direct 66 mg/dL (0-129) 01/23/19 06:02 HDL Cholesterol 37 mg/dL (30-70) 01/23/19 06:02 Lipase 186 U/L (23-300) 01/22/19 10:56 Free T4 1.31 ng/dL (0.78-2.19) 01/22/19 17:57 TSH 3rd Generation 11.60 mIU/L (0.46-4.68) H 01/22/19 17:57 Fluid Source Peritoneal/ascites 01/25/19 10:30 Fluid Appearance Cloudy (CLEAR) 01/25/19 10:30 Fluid WBC 206.0 /mm3 (0.0-300.0) 01/25/19 10:30 Fluid RBC 6101.0 /mm3 (0.0-0.0) H 01/25/19 10:30 Fluid Tot Cell Count 100 (0-0) H 01/25/19 10:30 Fluid Neutrophils 8.0 % (0-0) H 01/25/19 10:30 Fluid Lymphocytes 88.0 % (0-0) H 01/25/19 10:30 Fld Monocyte/Macrophag 4 % (0-0) H 01/25/19 10:30 Fluid Comment 01/25/19 10:30 Peritoneal Tot Protein 4.1 g/dL 01/25/19 10:30 Peritoneal LDH 148 U/L (<63) H 01/25/19 10:30 Peritoneal Glucose 114 mg/dL 01/25/19 10:30 Peritoneal Lipase 9.0 U/L (<10) 01/25/19 10:30 - Hospital Course Hospital Course: On admission: Patient is a 68 yo male with ESRD on HD MWF, CHF, cirrhosis, and HTN who presents with abdominal pain. Patient states that about 8 days ago, he noticed his abdomen start to distend, and he felt bloated. He says that when eating, he becomes full quickly and sometimes vomits. Additionally, he has SOB when lying flat. He has been feeling very fatigued recently as well, but he usually feels better after dialysis. Patient reports that he went to dialysis today and was still not feeling well afterwards, so he decided to come to the hospital. Patient was admitted in September 2018 with very similar complaints. He states that he did not follow-up outpatient after his admission in September with any doctors except Dr. Banks. He says that he is only taking 3 of his medications as he ran out of the others. Patient admits to drinking about 2 months ago and smoking cigars yesterday. He denies fevers/chills, chest pain, palpitations, leg swelling. He says that he is producing little urine, and it is hard for him to urinate. He admits to constipation; his last BM was this morning, but it was very hard. Hospital Course: Assessment: Patient is a 68 yo male with ESRD on HD MWF, CHF, cirrhosis, and HTN who presents with abdominal pain and distention. Patient with extensive ascites on CT. Plan: Recurrent ascites and Liver cirrhosis - Likely 2/2 to alcohol use - CT A/P: extensive cirrhosis - Obstructive series xray - no SBO - IR consulted, Dr. Palacios- paracentesis performed 01/25/19, 4L removed - F/u Fluid studies, SAAG Systolic congestive heart failure (HFrEF) - CXR: no acute disease - Echo: EF 10-15%. Sever global hypokinesis of LV. - Stress test: - Cardiology consulted, - Patient requires a life vest - BiV AICD evaluation as outpatient with Dr. Calloway - EKG: SInus bradycardia @ 58 bpm, QTc prolongation, left axis deviation - Continue Nadol 40mg PO QD - Avoid meds that can prolong QTc Nausea - Marinol x 1 - Avoid zofran for QTc prolongation End stage renal disease on Hemodialysis MWF - Phoslo 667 mg PO ACHS - Nephrology consulted , Hypertension - Nadolol 40mg PO QD - Continue to monitor Prolonged QTc - EKG: SInus bradycardia @ 58 bpm, QTc prolongation, left axis deviation - 514 on admission, repeat 569 - Avoid meds that can prolong QTc Hypothyroidism - Patient stopped taking Synthroid 125 mcg PO daily - Elevated TSH 11.60; Free T4 1.31 Benign prostatic hypertrophy - Flomax 0.4 mg PO QD Tobacco use disorder - Nicoderm daily - COunselled on smokimg cessation Hyperkalemia, resolved - Continue to monitor Prophylaxis: DVT: SCDs, Heparin 5000u SC Q12H GI: not indicated Code status: full code BiV AICD evaluation as outpatient with Dr. Calloway. On discharge: Patient is stable for discharge as per Dr. Lauren. You will be leaving with a Life Vest due to your low heart function. You must follow up with Dr. Calloway, iv technician within one week of discharge for continuation of your care and schedule appointment to have AICD placed. You must also follow up with Dr. Lauren one week from discharge. You are to continue the medicine regimen you were started on in the hospital which is the following: Aspirin 81mg by mouth daily Nadolol 20mg by mouth daily Phoslo 677mg by mouth with meals and before bedtime Digoxin 0.625mg PO every other day (dose adjusted for dialysis patients) Levothyroxine 125 mcg once daily Tamsulosin 0.4mg once daily You MUST stop smoking, as it is bad for your heart. You may obtain Nicotine patches at your pharmacy without a prescription. Return to the emergency room for new or worsening symptoms. Discharge Exam - Head Exam Head Exam: ATRAUMATIC, NORMOCEPHALIC - Additional Findings Additional findings: - Additional Findings Additional findings: - Constitutional Appears: Non-toxic, No Acute Distress - Head Exam Head Exam: ATRAUMATIC, NORMOCEPHALIC - Eye Exam Eye Exam: EOMI, Normal appearance - ENT Exam ENT Exam: Mucous Membranes Moist - Neck Exam Neck Exam: Full ROM, Normal Inspection - Respiratory Exam Respiratory Exam: Decreased Breath Sounds. absent: Rales, Rhonchi, Wheezes, Respiratory Distress - Cardiovascular Exam Cardiovascular Exam: REGULAR RHYTHM, +S1, +S2, Murmur (Systolic, 2nd intercostal space on the L) - GI/Abdominal Exam GI & Abdominal Exam: Non distendend, Soft, Normal Bowel Sounds. absent: Tenderness, Rebound - Extremities Exam Extremities Exam: Full ROM, Normal Capillary Refill, Normal Inspection. absent: Calf Tenderness, Joint Swelling, Pedal Edema, Tenderness - Neurological Exam Neurological Exam: Alert, Awake, CN II-XII Intact (grossly), Oriented x3 Neuro motor strength exam: Left Upper Extremity: 5, Right Upper Extremity: 5, Left Lower Extremity: 5, Right Lower Extremity: 5 - Psychiatric Exam Psychiatric exam: Normal Affect, Normal Mood - Skin Skin Exam: Normal Color, Warm Discharge Plan - Discharge Medications Prescriptions: Aspirin [Ecotrin] 81 mg PO DAILY #30 tabec Calcium Acetate [Phoslo] 667 mg PO ACHS #90 tab Calcium Acetate [Phoslo] 667 mg PO ACHS #90 tab Digoxin 0.0625 mg PO Q48H #15 tab Levothyroxine [Synthroid] 125 mcg PO DAILY@0630 #30 tab Nadolol [Corgard] 20 mg PO DAILY #30 tab Tamsulosin [Flomax] 0.4 mg PO DAILY #30 cap - Follow Up Plan Condition: STABLE Disposition: HOME/ ROUTINE Instructions: Heart Failure, Adult (DC), Acute Abdomen (Belly Pain), Adult (DC), Fluid in the Belly (Ascites) (DC), Abdominal Paracentesis (DC), End Stage Kidney Disease (DC), Dialysis and Diet, Hyperkalemia (DC) Additional Instructions: Patient is stable for discharge as per Dr. Lauren. You will be leaving with a Life Vest due to your low heart function. You must follow up with Dr. Calloway, iv technician within one week of discharge for continuation of your care and schedule appointment to have AICD placed. You must also follow up with Dr. Lauren one week from discharge. You are to continue the medicine regimen you were started on in the hospital which is the following: Aspirin 81mg by mouth daily Nadolol 20mg by mouth daily Phoslo 677mg by mouth with meals and before bedtime Digoxin 0.625mg PO every other day (dose adjusted for dialysis patients) Levothyroxine 125 mcg once daily Tamsulosin 0.4mg once daily You MUST stop smoking, as it is bad for your heart. You may obtain Nicotine patches at your pharmacy without a prescription. Return to the emergency room for new or worsening symptoms. El paciente est estable para el donya segn el Dr. Lauren. Se ir con un chaleco salvavidas debido a la baja funcin de rader corazn. Debe hacer un seguimiento con el Dr. Calloway, cardilogo dentro de ceferino semana despus del donya para continuar con rader atencin y programar ceferino lety para que se le asigne un AICD. [place] debe hacer un seguimiento con el Dr. Lauren ceferino semana despus del donya. Debe continuar con el rgimen de medicamentos que comenz en el hospital, que es el siguiente: Aspirina 81 mg por va oral todos los joyce. Nadolol 20mg ceferino vez al ailyn. Phoslo 677 mg por va oral con las comidas y antes de acostarse. Digoxin 0.625mg PO cada dos joyce (dosis ajustada para pacientes en dilisis) Levothyroxine 125 mcg ceferino vez al da Tamsulosina 0.4 mg ceferino vez al da. DEBES dejar de fumar, ya que es stormy para tu corazn. Puede obtener los parches de nicotina en rader farmacia sin receta. Regrese a la chel de emergencias para los sntomas nuevos o que empeoran. Referrals: Elan Calloway MD [Staff Provider] - Donell Lauren Jr., MD [Medical Doctor] -
[2019-01-28] MEDS ORDERED: Digoxin 125 mcg (0.125 mg) Tab PO SCH (18:00)
[2019-01-28 19:02] VITALS: BP 95/58; PULSE 52; RESP 18; TEMP 97.5
[2019-01-29] MEDS ORDERED: Levothyroxine 125 MCG TAB PO SCH (06:30)
== END 2019-01-28 16:50 | disposition home or self-care (01) | DRG 432 ==
LOC: C.ER 10:09 → C.6T 13:30
PROVIDERS: ADMIT Internal Medicine; ATTEND Internal Medicine
PROC: 5A1D70Z Performance of Urinary Filtration, Intermittent, Less than 6 Hours Per Day (ICD-10-PCS; 2019-01-22)
PROC: 0W9G3ZZ Drainage of Peritoneal Cavity, Percutaneous Approach (ICD-10-PCS; principal; 2019-01-25)
PROC: 5A1D70Z Performance of Urinary Filtration, Intermittent, Less than 6 Hours Per Day (ICD-10-PCS; 2019-01-25)
PROC: 5A1D70Z Performance of Urinary Filtration, Intermittent, Less than 6 Hours Per Day (ICD-10-PCS; 2019-01-27)
DX: K70.31 Alcoholic cirrhosis of liver with ascites (principal); N18.6 End stage renal disease; I50.20 Unspecified systolic (congestive) heart failure; I13.2 Hypertensive heart and chronic kidney disease with heart failure and with stage 5 chronic kidney disease, or end stage renal disease; K59.00 Constipation, unspecified; I45.81 Long QT syndrome; I50.82 Biventricular heart failure; N40.0 Benign prostatic hyperplasia without lower urinary tract symptoms; Z99.2 Dependence on renal dialysis; F17.290 Nicotine dependence, other tobacco product, uncomplicated; E87.5 Hyperkalemia; E03.9 Hypothyroidism, unspecified; I27.20 Pulmonary hypertension, unspecified; I07.1 Rheumatic tricuspid insufficiency; D64.9 Anemia, unspecified